=== PATIENT | female | born 1940 | race Caucasian/White ===

== ENCOUNTER 2016-10-04 19:26 | Emergency (ER) | payer OTHER ==
[~2016-10-04 19:26] MED LIST: ALPR-138 PO; ENAL20TA PO; GLUCTAB OR; KLOR8TAB PO; LASI20TA PO; LIDO5DIS35 TD; LORT7.5T3 PO; PRED20 PO; SIMV80TA OR; ZOVI800T13 PO
[2016-10-04 19:30] VITALS: BP 161/72; PULSE 101; RESP 18; TEMP 98; O2SAT 97
== END 2016-10-04 21:57 | disposition left against medical advice (07) ==
LOC: NED 19:26
DX: R18.8 Other ascites (principal)
CPT/HCPCS: 99281

== ENCOUNTER 2017-05-30 19:25 | Inpatient (IN) | payer OTHER, MEDICARE ==
[~2017-05-30] VITALS: Ht 160 cm; Wt 83.6 kg
[2017-05-30 19:33] VITALS: BP 186/84; PULSE 105; RESP 20; TEMP 98.3; O2SAT 96
[2017-05-30 19:50] VITALS: BP 148/73; PULSE 102; RESP 20; O2SAT 97
--- NOTE | 2017-05-30 19:53 | PD ---
HPI Chief Complaint: Complaint Time Seen by Provider: 19:42 Travel History International Travel<30 days: No Contact w/Intl Traveler<30days: No Traveled to known affect area: No History of Present Illness HPI 76-year-old female with history of diabetes, COPD, CKD, hypertension, hyperlipidemia, here for evaluation of decreased urine output for the last 5 days. She states that when she urinates, she is only able to put out a few drops. She denies dysuria. No abdominal pain. She has been having loose bowel movements. No vomiting. No dyspnea. PFSH Past Medical History High Cholesterol: Yes Diabetes: Yes Diminished Hearing: No Hypertension: Yes PNEUMOCCOCAL Vaccine (Year): 2010 ?: Not Past Surgical History Appendectomy: Yes Hysterectomy: Yes Social History Alcohol Use: No Tobacco Use: No Substance Use: No Allergies-Medications (Allergen,Severity, Reaction): Coded Allergies: Sulfa (Sulfonamide Antibiotics) (Verified Allergy, Mild, 05/30/17) Reported Meds & Prescriptions Reported Meds & Active Scripts Active Reported Lantus Inj (Insulin Glargine) 1,000 Unit/10 Ml Vial 75 Units SQ HS Xanax (Alprazolam) 0.25 Mg Tab 0.25 Mg PO Q8H PRN Enalapril (Enalapril Maleate) 20 Mg Tab 20 Mg PO BID Lasix (Furosemide) 20 Mg Tab 20 Mg PO DAILY Lasix (Furosemide) 20 Mg Tab 20 Mg PO DAILY Lipitor (Atorvastatin Calcium) 80 Mg Tab 80 Mg PO HS Review of Systems Except as stated in HPI: all other systems reviewed are Neg Physical Exam Narrative GENERAL: Well-developed, well-nourished, no apparent distress. SKIN: Focused skin assessment warm/dry. HEAD: Atraumatic. Normocephalic. EYES: Pupils equal and round. No scleral icterus. No injection or drainage. ENT: Mucous membranes pink and moist. NECK: Trachea midline. No JVD. CARDIOVASCULAR: Regular rate and rhythm. No murmur appreciated. RESPIRATORY: No accessory muscle use. Mild end expiratory wheezes bilaterally. No rales or rhonchi. Breath sounds equal bilaterally. GASTROINTESTINAL: Abdomen soft, non-tender, nondistended. MUSCULOSKELETAL: No obvious deformities. No clubbing. No cyanosis. Mild bilateral lower extremity edema, left greater than right. NEUROLOGICAL: Awake and alert. No obvious cranial nerve deficits. Motor grossly within normal limits. Normal speech. PSYCHIATRIC: Appropriate mood and affect; insight and judgment normal. Data Data Last Documented VS Vital Signs Date Time Temp Pulse Resp B/P (MAP) Pulse Ox O2 Delivery O2 Flow Rate FiO2 05/30/17 19:50 102 20 148/73 (98) 97 Room Air 05/30/17 19:33 98.3 Orders Orders Complete Blood Count With Diff (05/30/17 19:50) Comprehensive Metabolic Panel (05/30/17 19:50) Prothrombin Time / Inr (Pt) (05/30/17 19:50) Act Partial Throm Time (Ptt) (05/30/17 19:50) Urinalysis - C+S If Indicated (05/30/17 19:50) Iv Access Insert/Monitor (05/30/17 19:50) Ecg Monitoring (05/30/17 19:50) Oximetry (05/30/17 19:50) Sodium Chloride 0.9% Flush (Ns Flush) (05/30/17 20:00) Electrocardiogram (05/30/17 19:50) Chest, Single Ap (05/30/17 ) Sodium Chlor 0.9% 1000 Ml Inj (Ns 1000 M (05/30/17 20:45) Urinary Catheter Insert/Apply (05/30/17 21:05) Sodium Chlor 0.9% 1000 Ml Inj (Ns 1000 M (05/30/17 21:06) Admit Order (Ed Use Only) (05/30/17 21:34) Labs Laboratory Tests Test 05/30/17 20:10 White Blood Count 9.0 TH/MM3 Red Blood Count 4.23 MIL/MM3 Hemoglobin 10.8 GM/DL Hematocrit 34.1 % Mean Corpuscular Volume 80.7 FL Mean Corpuscular Hemoglobin 25.6 PG Mean Corpuscular Hemoglobin Concent 31.7 % Red Cell Distribution Width 17.2 % Platelet Count 225 TH/MM3 Mean Platelet Volume 8.2 FL Neutrophils (%) (Auto) 85.4 % Lymphocytes (%) (Auto) 8.0 % Monocytes (%) (Auto) 5.4 % Eosinophils (%) (Auto) 1.0 % Basophils (%) (Auto) 0.2 % Neutrophils # (Auto) 7.7 TH/MM3 Lymphocytes # (Auto) 0.7 TH/MM3 Monocytes # (Auto) 0.5 TH/MM3 Eosinophils # (Auto) 0.1 TH/MM3 Basophils # (Auto) 0.0 TH/MM3 CBC Comment DIFF FINAL Differential Comment Prothrombin Time 10.0 SEC Prothromb Time International Ratio 0.9 RATIO Activated Partial Thromboplast Time 27.8 SEC Blood Urea Nitrogen 99 MG/DL Creatinine 14.00 MG/DL Random Glucose 122 MG/DL Total Protein 7.4 GM/DL Albumin 3.1 GM/DL Calcium Level 8.3 MG/DL Alkaline Phosphatase 93 U/L Aspartate Amino Transf (AST/SGOT) 18 U/L Alanine Aminotransferase (ALT/SGPT) 37 U/L Total Bilirubin 0.5 MG/DL Sodium Level 135 MEQ/L Potassium Level 4.8 MEQ/L Chloride Level 98 MEQ/L Carbon Dioxide Level 16.5 MEQ/L Anion Gap 21 MEQ/L Estimat Glomerular Filtration Rate 3 ML/MIN [facility] Medical Decision Making Medical Screen Exam Complete: Yes Emergency Medical Condition: Yes Differential Diagnosis Renal failure, UTI, obstructive uropathy, metabolic abnormality/dehydration Narrative Course Bedside transabdominal ultrasound was performed and shows an empty bladder. Initial vital signs show heart rate 105, blood pressure 186/84, pulse ox 96% on room air, oral temp of 98.3F. CBC: WBC 9, hemoglobin 10.8, hematocrit 34.1, platelets 225, neutrophils 85%. BMP is remarkable for BUN 99, creatinine 14, GFR 3, bicarbonate 16.5. Potassium is 4.8. Chest x-ray shows no acute disease. Patient was made aware of all findings. Full he catheter will be placed and the patient will be given a liter of normal saline IV followed by normal saline at 125 cc per hour. She will be admitted for further treatment and evaluation of acute renal failure. Patient reports history of chronic kidney disease, likely secondary to her diabetes and hypertension. She has been having diarrhea for the last week which has likely caused her to become dehydrated leading to her acute renal failure today. There are no indications for emergent dialysis, and the patient is not sure if she would like dialysis anyway. Her abdominal exam shows no tenderness or peritoneal signs. She has a metabolic acidosis which is likely secondary to uremia. Case discussed with hospitalist Dr Teresa who will admit the patient to her service. Procedures Procedure Narrative Bedside transabdominal ultrasound: Using the curvilinear ultrasound probe, a bedside ultrasound was performed and shows an empty bladder. Diagnosis Primary Impression: Acute renal failure Qualified Codes: N17.9 - Acute kidney failure, unspecified Additional Impressions: Metabolic acidosis Uremia Admitting Information Admitting Physician Requests: Admit Dontae Sun MD May 30, 2017 19:53
[2017-05-30] MEDS ORDERED: LIPI80TA PO (19:58)
[2017-05-30] MEDS ORDERED: LANTUS2P SQ (19:58)
[2017-05-30] MEDS ORDERED: ALPR.25 PO (19:58)
[2017-05-30] MEDS ORDERED: ENAL20TA PO (19:58)
[2017-05-30] MEDS ORDERED: FURO1TAB62 PO (19:58)
[2017-05-30] MEDS ORDERED: SODIUM CHLORIDE 0.9% FLUSH 10 ML FLUSH IV FLUSH PRN (20:00)
[2017-05-30 20:19] LABS: AUTOMATED NEUTROPHIL # 7.7 TH/MM3 (1.8-7.7); BASOPHIL % 0.2 % (0.0-2.0); EOSINOPHIL # 0.1 TH/MM3 (0-0.4); HEMATOCRIT 34.1 % (35.0-46.0); HEMO FLAGS DIFF FINAL; LYMPHOCYTE # 0.7 TH/MM3 (1.0-4.8); MEAN CELL VOLUME 80.7 FL (80.0-100.0); MEAN CORPUSCULAR HEMOGLOBIN 25.6 PG (27.0-34.0); MEAN CORPUSCULAR HGB CONC 31.7 % (32.0-36.0); MONO % 5.4 % (0.0-8.0); NEUT % 85.4 % (16.0-70.0); PLATELET COUNT 225 TH/MM3 (150-450); RED BLOOD COUNT 4.23 MIL/MM3 (4.00-5.30); RED CELL DISTRIBUTION WIDTH 17.2 % (11.6-17.2)
[2017-05-30 20:35] LABS: CHLORIDE 98 MEQ/L (98-107); POTASSIUM 4.8 MEQ/L (3.5-5.1); SODIUM (NA) 135 MEQ/L (136-145)
[2017-05-30 20:38] LABS: ANION GAP 21 MEQ/L (5-15); BICARBONATE 16.5 MEQ/L (21.0-32.0)
[2017-05-30 20:39] LABS: BLOOD UREA NITROGEN 99 MG/DL (7-18)
[2017-05-30 20:41] LABS: ALT (GPT) 37 U/L (10-53); AST (GOT) 18 U/L (15-37)
[2017-05-30 20:42] LABS: APTT (PATIENT) 27.8 SEC (24.3-30.1); GLOMERULAR FILTRATION RATE 3 ML/MIN (>89); INTERNATIONAL NORMALIZED RATIO 0.9 RATIO
[2017-05-30 20:43] LABS: TOTAL BILIRUBIN ADULT 0.5 MG/DL (0.2-1.0)
[2017-05-30 20:45] LABS: ALKALINE PHOSPHATASE 93 U/L (45-117)
[2017-05-30] MEDS ORDERED: SODIUM CHLOR 0.9% 1000 ML INJ 1,000 ML IV ONE (20:45)
--- NOTE | 2017-05-30 20:59 | RADRPT ---
EXAM DATE/TIME: 05/30/2017 20:12 [facility] COMPARISON: No previous studies available for comparison. INDICATIONS : Short of breath. No urine output for 5 days. MEDICAL HISTORY : Hypertension. Chronic obstructive pulmonary disease. Hypercholesterolemia. Diabetes. SURGICAL HISTORY : Appendectomy. Hysterectomy. ENCOUNTER: Initial ACUITY: 4 - 6 days PAIN SCORE: 0/10 LOCATION: Bilateral chest FINDINGS: The lungs are clear without infiltrate, nodule, or mass. There is no appreciable pleural effusion fo r technique. Heart and mediastinum are unremarkable. CONCLUSION: No acute cardiopulmonary disease. Alex Rogers MD on May 30, 2017 at 20:58 Board Certified Radiologist. This report was verified electronically.
[2017-05-30] MEDS ORDERED: SODIUM CHLOR 0.9% 1000 ML INJ 1,000 ML IV SCH (21:06)
[2017-05-30] MEDS ORDERED: DEXTROSE 50% IN WATER 50 ML VIAL(D50) IV PUSH PRN (21:45)
[2017-05-30] MEDS ORDERED: NALOXONE HCL 0.4 MG/ML AMP IV PUSH PRN (21:45)
[2017-05-30] MEDS ORDERED: GLUCAGON 1 MG/ML VIAL OTHER PRN (21:45)
[2017-05-30 22:02] LABS: BLOOD, URINE SMALL (NEG); GLUCOSE,URINE NEG (NEG); KETONE, URINE NEG (NEG); NITRITE,URINE NEG (NEG); PH, URINE 5.5 (5.0-8.5)
[2017-05-30 22:15] VITALS: BP 151/68; PULSE 95; RESP 20; O2SAT 96
--- NOTE | 2017-05-30 22:20 | EKG ---
Date Performed: 05/30/2017 Time Performed: 20:23:33 PTAGE: 76 years EKG: Sinus rhythm MARKED LEFT AXIS DEVIATION LOW QRS VOLTAGE IN PRECORDIAL LEADS INCOMPLETE RIGHT BUNDLE BRANCH BLOCK ANTEROSEPTAL MYOCARDIAL INFARCTION ABNORMAL ECG NO PREVIOUS TRACING DOCTOR: Martha Fu Interpretating Date/Time 05/30/2017 22:18:33
[2017-05-30 22:26] LABS: METHOD OF COLLECTION CATH; URINE COLOR YELLOW (YELLW/STRAW)
[2017-05-30 22:27] LABS: RBC, URINE 0-3 /hpf (0-3); SQUAMOUS EPITHELIAL CELL URINE 0-5 /hpf (0-5)
[2017-05-30 22:28] LABS: HYALINE CAST, URINE 0-2 /lpf (RARE)
[2017-05-30 22:29] LABS: COMMENT (UR) CATH-CULT NOT IND; CULTURE IF INDICATED CATH CULTURE NOT IND
[2017-05-30 23:55] VITALS: BP 165/68
[2017-05-31] VITALS (9 sets, daily range): BP systolic 137–153; BP diastolic 63–87; PULSE 93–101; RESP 20–25; TEMP 96–97.4; O2SAT 93–97
[2017-05-31] MEDS: RESP: ALBUTEROL 2.5 MG/IPRATROPIUM 0.5 MG NEB (SCH) NEB ×4 (04:24→20:39)
[2017-05-31 06:36] LABS: AUTOMATED NEUTROPHIL # 7.5 TH/MM3 (1.8-7.7); BASOPHIL % 0.3 % (0.0-2.0); EOSINOPHIL # 0.1 TH/MM3 (0-0.4); EOSINOPHIL % 1.2 % (0.0-4.0); HEMATOCRIT 29.3 % (35.0-46.0); HEMO FLAGS DIFF FINAL; LYMPHOCYTE # 1.3 TH/MM3 (1.0-4.8); MEAN CELL VOLUME 79.7 FL (80.0-100.0); MEAN CORPUSCULAR HEMOGLOBIN 25.1 PG (27.0-34.0); MEAN CORPUSCULAR HGB CONC 31.4 % (32.0-36.0); MONO % 6.8 % (0.0-8.0); NEUT % 77.7 % (16.0-70.0); PLATELET COUNT 203 TH/MM3 (150-450); RED BLOOD COUNT 3.68 MIL/MM3 (4.00-5.30); RED CELL DISTRIBUTION WIDTH 17.2 % (11.6-17.2); WHITE BLOOD COUNT 9.5 TH/MM3 (4.0-11.0)
[2017-05-31 06:49] LABS: POTASSIUM 4.9 MEQ/L (3.5-5.1)
[2017-05-31 07:13] LABS: BICARBONATE 14.2 MEQ/L (21.0-32.0)
[2017-05-31] MEDS: INSULIN ASPART SUPPLEMENTAL SCALE SQ SCH ×4 (08:00→20:50)
[2017-05-31] MEDS: SODIUM CHLORIDE 0.9% FLUSH 10 ML FLUSH IV FLUSH SCH ×2 (09:00→20:23)
--- NOTE | 2017-05-31 09:29 | RADRPT ---
EXAM DATE/TIME: 05/31/2017 08:54 [facility] COMPARISON: No previous studies available for comparison. EXTERNAL COMPARISON : [facility], US ABDOMEN, COMPLETE October 24, 2016. [facility], US BILATERAL RENAL & BLADDER September 21, 2016. INDICATIONS : Acute renal failure. MEDICAL HISTORY : Chronic obstructive pulmonary disease. Hypercholesterolemia. Hypertension. Stage IV kidney disease. F atty liver. Diabetes. SURGICAL HISTORY : Cholecystectomy. Hysterectomy. Appendectomy. Right knee replacement. Bilateral rotator cuff repair. ENCOUNTER: Initial ACUITY: 1 day PAIN SCORE: 0/10 LOCATION: Bilateral flank MEASUREMENTS: RIGHT KIDNEY: 9.8 x 5.5 x 5.1 cm LEFT KIDNEY: 7.3 x 4.1 x 3.6 cm FINDINGS: RIGHT KIDNEY: Renal cortex is normal in thickness and echotexture. No hydronephrosis, stone, or mass. LEFT KIDNEY: The kidney is small in size and there is loss of delineation of the echotexture between the renal sin us and parenchyma. No evidence of hydronephrosis. No cystic or solid lesions seen. BLADDER: Cancino catheter in a decompressed bladder. CONCLUSION: 1. Abnormal appearance to the left kidney with diminutive size and poor delineation of the parenchyma l architecture. 2. No gross abnormality seen in the right kidney. Aramis Scott MD on May 31, 2017 at 9:24 Board Certified Radiologist. This report was verified electronically.
--- NOTE | 2017-05-31 09:44 | RADRPT ---
EXAM DATE/TIME: 05/31/2017 09:20 [facility] COMPARISON: CHEST SINGLE AP, May 30, 2017, 20:12. INDICATIONS : Short of breath. MEDICAL HISTORY : Chronic obstructive pulmonary disease. Hypercholesterolemia. Hypertension. Stage IV kidney disease. F atty liver. Diabetes. SURGICAL HISTORY : Umbilical hernia repair. Cholecystectomy. Hysterectomy. Appendectomy. Right knee replacement.Bilate ral rotator cuff repair. ENCOUNTER: Initial ACUITY: 2 days PAIN SCORE: 0/10 LOCATION: chest FINDINGS: A single view of the chest demonstrates the lungs to be symmetrically aerated without evidence of mas s, infiltrate or effusion. The cardiomediastinal contours are unremarkable. Osseous structures are intact. CONCLUSION: No infiltrate seen. Aramis Scott MD on May 31, 2017 at 9:42 Board Certified Radiologist. This report was verified electronically.
[2017-05-31] MEDS ORDERED: SODIUM CHLOR 0.9% 1000 ML INJ 1,000 ML IV SCH (10:15)
[2017-05-31] MEDS ORDERED: methylPREDNISolone SOD SUCC 125 MG/2 ML VIAL IV PUSH ONE (10:15)
[2017-05-31] MEDS ORDERED: FUROSEMIDE 40 MG/4 ML VIAL IV PUSH ONE (10:15)
--- NOTE | 2017-05-31 13:04 | HHI.HP ---
[facility] Service [facility] Primary Care Physician Camron Figueroa MD Admission Diagnosis acute renal failure, metabolic acidosis, uremia Diagnoses: (1) Acute renal failure Diagnosis: Principal (2) Metabolic acidosis Diagnosis: Principal (3) Oliguria Diagnosis: Principal (4) Diarrhea Diagnosis: Principal Chief Complaint: Told to come to the hospital by Dr. Figueroa's office Travel History International Travel<30 Days: No Contact w/Intl Traveler <30 Da: No Traveled to Known Affected Are: No History of Present Illness Written by Chris Waite, acting as scribe for Dr. Pemberton on 05/31/17 at 12:49. Pt is a suboptimal historian - has difficulty remembering her presenting story. 76-year-old female with known history of hypertension, hyperlipidemia , diabetes, chronic obstructive pulmonary disease, records indicate stage IV kidney disease who presented to hospital at the request of her primary medical doctor. There was some mild difficulty with trying to obtain information from the patient. She appears to be very forgetful. However she states that around a week ago she started having GI symptoms to include nausea, vomiting, diarrhea. Is indicated that she has been having decreased amount of urine output. She had called her regular medical doctor 2 days ago and discussed her symptoms with them and she was given recommendations at that time. However her symptoms did not improve, she still experiencing diarrhea, nausea, dry heaves. She contacted her primary medical doctor's office again yesterday and she was told to go to the ER for evaluation. Patient had a girlfriend high lift driver to the hospital for evaluation. Patient indicates that she has had diarrhea illness with watery stool. Denies any hematochezia, melena. It has nausea with dry heaves. Denies any hematemesis. She has been only able tolerate small amounts of liquids. She has had decreased urinary output with only getting a few drops out at a time. She came to emergency department for evaluation and was found to have acute renal failure. Records indicate significant oliguria with only 150 cc of urinary output since being at the hospital. Patient states that she is monitored by a stave cutting supervisor whose first name is Leticia. Patient was given 1100 cc of IV fluid without any significant urinary output. Patient was admitted for further management. She also reports having some SOB that started shortly after arriving to the emergency room. Review of Systems Except as stated in HPI: all other systems reviewed are Neg Past Family Social History Past Medical History Hypertension Hyperlipidemia Diabetes Chronic Kidney disease stage IV per records Chronic obstructive pulmonary disease Past Surgical History Cholecystectomy Hysterectomy Reported Medications Reported Meds & Active Scripts Active Reported Lantus Inj (Insulin Glargine) 1,000 Unit/10 Ml Vial 75 Units SQ HS Xanax (Alprazolam) 0.25 Mg Tab 0.25 Mg PO Q8H PRN Enalapril (Enalapril Maleate) 20 Mg Tab 20 Mg PO BID Lasix (Furosemide) 20 Mg Tab 20 Mg PO DAILY Lasix (Furosemide) 20 Mg Tab 20 Mg PO DAILY Lipitor (Atorvastatin Calcium) 80 Mg Tab 80 Mg PO HS Allergies: Coded Allergies: Sulfa (Sulfonamide Antibiotics) (Verified Allergy, Mild, 05/30/17) Family History Reviewed is significant for father from kidney disease Social History Patient continues smoke a half pack a cigarettes a day since she was teenager. Denies any alcohol or illicit drugs Physical Exam Vital Signs Vital Signs Date Time Temp Pulse Resp B/P (MAP) Pulse Ox O2 Delivery O2 Flow Rate FiO2 05/31/17 11:30 96.3 94 20 144/72 (96) 96 05/31/17 10:18 96 Nasal Cannula 2.00 05/31/17 07:50 96.5 97 20 153/63 (93) 97 05/31/17 04:24 94 21 05/31/17 04:00 97.0 93 20 139/70 (93) 95 05/31/17 00:30 97.4 101 20 149/73 (98) 95 05/30/17 23:55 103 20 165/68 (100) 98 05/30/17 22:15 95 20 151/68 (95) 96 Room Air 05/30/17 19:50 105 20 05/30/17 19:50 102 20 148/73 (98) 97 Room Air 05/30/17 19:50 103 20 96 Room Air 05/30/17 19:50 102 20 148/73 (98) 97 Room Air 05/30/17 19:33 98.3 105 20 186/84 (118) 96 Physical Exam GENERAL: Well-developed, well-nourished, in no acute distress. alert and orientated HEENT: Head is normocephalic without any lesions or masses noted. Facial features are symmetric. Eyes: Extraocular muscles are intact. Conjunctivae were clear. Oropharyngeal: Pharynx without any erythema edema. Tongue is midline without deviation. Buccal mucosa is moist without any masses or lesions NECK: Supple without any masses. Trachea midline no deviation. No JVD CARDIAC: Regular rhythm, regular rate. S1/S2 are heard. No murmurs gallops or rubs. LUNGS: Diminished breath sounds noted in the bases, patient with profound expiratory wheeze. No Rhonchi or rales. No use of accessory muscles on inspiration or expiration. Patient unable to complete full sentences ABDOMEN: Soft, nontender. distended. Bowel sounds heard in all 4 quadrants. No organomegaly or masses. Negative rebound, negative guarding EXTREMITIES: No edema, pulses are equal bilaterally. No cyanosis or clubbing NEUROLOGY: No facial droop, no slurred speech, no tremors Psychiatry: Mood and affect appropriate Laboratory Laboratory Tests Test 05/30/17 20:10 05/30/17 21:49 05/31/17 06:00 White Blood Count 9.0 9.5 Red Blood Count 4.23 3.68 Hemoglobin 10.8 9.2 Hematocrit 34.1 29.3 Mean Corpuscular Volume 80.7 79.7 Mean Corpuscular Hemoglobin 25.6 25.1 Mean Corpuscular Hemoglobin Concent 31.7 31.4 Red Cell Distribution Width 17.2 17.2 Platelet Count 225 203 Mean Platelet Volume 8.2 8.6 Neutrophils (%) (Auto) 85.4 77.7 Lymphocytes (%) (Auto) 8.0 14.0 Monocytes (%) (Auto) 5.4 6.8 Eosinophils (%) (Auto) 1.0 1.2 Basophils (%) (Auto) 0.2 0.3 Neutrophils # (Auto) 7.7 7.5 Lymphocytes # (Auto) 0.7 1.3 Monocytes # (Auto) 0.5 0.6 Eosinophils # (Auto) 0.1 0.1 Basophils # (Auto) 0.0 0.0 CBC Comment DIFF FINAL DIFF FINAL Differential Comment Prothrombin Time 10.0 Prothromb Time International Ratio 0.9 Activated Partial Thromboplast Time 27.8 Blood Urea Nitrogen 99 101 Creatinine 14.00 13.00 Random Glucose 122 75 Total Protein 7.4 Albumin 3.1 Calcium Level 8.3 7.8 Alkaline Phosphatase 93 Aspartate Amino Transf (AST/SGOT) 18 Alanine Aminotransferase (ALT/SGPT) 37 Total Bilirubin 0.5 Sodium Level 135 138 Potassium Level 4.8 4.9 Chloride Level 98 105 Carbon Dioxide Level 16.5 14.2 Anion Gap 21 19 Estimat Glomerular Filtration Rate 3 3 Urine Collection Type CATH Urine Color YELLOW Urine Turbidity CLEAR Urine pH 5.5 Urine Specific [place] 1.010 Urine Protein 30 Urine Glucose (UA) NEG Urine Ketones NEG Urine Occult Blood SMALL Urine Nitrite NEG Urine Bilirubin NEG Urine Leukocyte Esterase NEG Urine RBC 0-3 Urine Squamous Epithelial Cells 0-5 Urine Amorphous Sediment FEW Urine Hyaline Casts 0-2 Urine Fine Granular Casts 0-2 Microscopic Urinalysis Comment CATH-CULT NOT IND Result Diagram: 05/31/17 0600 05/31/17 0600 Imaging Last Impressions Renal Ultrasound 05/31/17 0000 Signed Impressions: Service Date/Time: Wednesday, May 31, 2017 08:54 - CONCLUSION: 1. Abnormal appearance to the left kidney with diminutive size and poor delineation of the parenchymal architecture. 2. No gross abnormality seen in the right kidney. Aramis Scott MD Chest X-Ray 05/31/17 0000 Signed Impressions: Service Date/Time: Wednesday, May 31, 2017 09:20 - CONCLUSION: No infiltrate seen. Aramis Scott MD Capbriani VTE Risk Assessment Caprini VTE Risk Assessment: Mod/High Risk (score >= 2) Caprini Risk Assessment Model Point Value = 1 Point Value = 2 Point Value = 3 Point Value = 5 Age 41-60 Minor surgery BMI > 25 kg/m2 Swollen legs Varicose veins or History of unexplained or recurrent spontaneous Oral contraceptives or hormone replacement Sepsis (< 1 month) Serious lung disease, including pneumonia (< 1 month) Abnormal pulmonary function Acute myocardial infarction Congestive heart failure (< 1 month) History of inflammatory bowel disease Medical patient at bed rest Age 61-74 Arthroscopic surgery Major open surgery (> 45 min) Laparoscopic surgery (> 45 min) Malignancy Confined to bed (> 72 hours) Immobilizing plaster cast Central venous access Age >= 75 History of VTE Family history of VTE Factor V Leiden Prothrombin [id number] Lupus anticoagulant Anticardiolipin antibodies Elevated serum homocysteine Heparin-induced thrombocytopenia Other congenital or acquired thrombophilia Stroke (< 1 month) Elective arthroplasty Hip, pelvis, or leg fracture Acute spinal cord injury (< 1 month) Prophylaxis Regimen Total Risk Factor Score Risk Level Prophylaxis Regimen 0-1 Low Early ambulation 2 Moderate Order ONE of the following: *Sequential Compression Device (SCD) *Heparin 5000 units SQ BID 3-4 Higher Order ONE of the following medications: *Heparin 5000 units SQ TID *Enoxaparin/Lovenox 40 mg SQ daily (WT < 150 kg, CrCl > 30 mL/min) *Enoxaparin/Lovenox 30 mg SQ daily (WT < 150 kg, CrCl > 10-29 mL/min) *Enoxaparin/Lovenox 30 mg SQ BID (WT < 150 kg, CrCl > 30 mL/min) AND/OR *Sequential Compression Device (SCD) 5 or more Highest Order ONE of the following medications: *Heparin 5000 units SQ TID (Preferred with Epidurals) *Enoxaparin/Lovenox 40 mg SQ daily (WT < 150 kg, CrCl > 30 mL/min) *Enoxaparin/Lovenox 30 mg SQ daily (WT < 150 kg, CrCl > 10-29 mL/min) *Enoxaparin/Lovenox 30 mg SQ BID (WT < 150 kg, CrCl > 30 mL/min) AND *Sequential Compression Device (SCD) Assessment and Plan Assessment and Plan Acute renal failure with partial oliguria, anion gap metabolic acidosis, with records indicating stage IV kidney disease Precipitated by nausea, vomiting, diarrhea. Etiology could include dehydration , acute tubular necrosis, Renal ultrasound does not indicate any acute abnormality but rather chronic atrophy of left kidney Discussion with Dr. Leticia Lee recommended cautious IV hydration, administration of Lasix x 1 until seen by them. Ordering add on renal function panel for now from a.m. specimen earlier today, repeating renal function panel for tomorrow morning Nausea, vomiting, diarrhea N/V possibly 2/2 uremia vs viral gastroenteritis Cautious hydration Zofran as needed Diarrhea - r/o C. difficile w/ PCR Chronic obstructive pulmonary disease Profound wheezing, shortness of breath, dyspnea Chest x-ray independently reviewed by Dr. Pemberton does not indicate any acute abnormality Start Solu-Medrol 60 mg every 6 hours Continue duo nebs Hypertension, hyperlipidemia Resume statin Hold NINI inhibitor secondary to acute renal failure Diabetes Accu-Cheks with low sliding scale insulin DVT prevention Sequential compression devices, will order short acting heparin in case Vas- cath placement is needed. This note was transcribed by vandana Waite. IDerek, personally performed the history, physical exam, and medical decision making; and confirmed the accuracy of information in the transcribed note. Authenticated by Derek Pemberton on 1310. All orders entered by Robbie Waite were at my discretion. Physician Certification 2 Midnight Certification Type: Admission for Inpatient Services Order for Inpatient Services The services are ordered in accordance with Medicare regulations or non- Medicare payer requirements, as applicable. In the case of services not specified as inpatient-only, they are appropriately provided as inpatient services in accordance with the 2-midnight benchmark. Estimated LOS (days): 4 days is the estimated time the patient will need to remain in the hospital, assuming treatment plan goals are met and no additional complications. Post-Hospital Plan: Not yet determined Problem Qualifiers (1) Acute renal failure: Qualified Codes: N17.9 - Acute kidney failure, unspecified Chris Waite May 31, 2017 13:04 Derek Pemberton MD May 31, 2017 14:38
[2017-05-31] MEDS: HEPARIN SODIUM - SQ 10,000 UNITS/ML VIAL SQ SCH ×2 (16:00→20:54)
[2017-05-31 16:58] LABS: POTASSIUM 5.3 MEQ/L (3.5-5.1)
[2017-05-31 17:25] LABS: BICARBONATE 15.2 MEQ/L (21.0-32.0)
[2017-05-31 18:40] LABS: CALCIUM-PROTEIN CORRECTED 7.3 MG/DL (8.5-10.1)
[2017-05-31] MEDS: SODIUM BICARBONATE 8.4% INJ 75 MEQ in SODIUM CHLOR 0.45% 1000 ML INJ 1,000 ML IV SCH (18:48)
--- NOTE | 2017-05-31 19:52 | MB ---
cc: ANTOINE TRINH MD DATE OF CONSULTATION 05/31/2017 REASON FOR CONSULTATION Chronic kidney disease with elevated BUN and creatinine. HISTORY OF PRESENT ILLNESS This is a 76-year-old female with past medical history of hypertension, diabetes mellitus, hyperlipidemia, ischemic heart disease, chronic kidney disease, chronic obstructive pulmonary disease was admitted because of generalized weakness, decreased urine output. I he was called to see the patient for elevated BUN and creatinine. The patient is known to me from before. She has been following with me in the office and last time I saw her was on May 04 and at that time her creatinine was 2.2 with given the GFR of 19-20 she had advanced stage IV chronic kidney disease most likely because of diabetic nephropathy. She had a workup done which shows the SOMMER was negative. She has mild proteinuria. The patient was quite stable for the last few months that I am seeing her and since last week she started having this nausea with dry heaves, occasional vomiting and loose bowel motion. And since last 2 days she stopped passing any urine. She called Dr. Figueroa's office on Monday and she was told to drink more fluid. She did that and she did also drink some more Gatorade but she did not notice an increase in the urine output, in fact she was not able to pass any urine for the last 2 days so she decided to come to the hospital. Here she got a Cancino catheter and she has been passing very small amount of urine and she was given one dose of Lasix and she is getting IV fluid and she started passing some but not much of the urine. Her creatinine was 14 on admission and is now 13. She also has metabolic acidosis. The patient has improvement in her nausea and there is no vomiting now. She still has loose bowel motion but it is improving. There is no abdominal pain. There is no history of fever. She denies taking any nonsteroidal anti-inflammatory drugs. PAST MEDICAL HISTORY 1. Hypertension. 2. Diabetes mellitus. 3. Hyperlipidemia. 4. Chronic kidney disease. 5. Chronic obstructive pulmonary disease. PAST SURGICAL HISTORY 1. Cholecystectomy. 2. Hysterectomy. REVIEW OF SYSTEMS The patient has generalized weakness, feeling tired. Has no history of fever. No headache, dizziness or blurring of vision. Denies any shortness of breath at rest but she has some mild shortness of breath on exertion. She had dry heaves and nausea with occasional vomiting but it is better now. She started eating better. She has diarrhea with stool incontinence on coughing which has been going on for the last five to six days and now it is slightly better. SOCIAL HISTORY The patient is single. She smokes about half-pack per day. There is no history of heavy alcoholism. FAMILY HISTORY Her niece is on dialysis and has kidney disease. ALLERGIES SHE IS ALLERGIC TO SULFA. MEDICATIONS Currently she is on the following medications: 1. IV fluids normal saline at 70 an hour. 2. Lipitor 80 milligrams q.h.s. 3. Methyl prednisolone 60 mg q. 12-hour. 4. DuoNeb nebulizer. 5. Narcan as needed. 6. Zofran as needed PHYSICAL EXAMINATION GENERAL: The patient is awake, alert. She is not in acute distress. VITAL SIGNS: Her last blood pressure 144/72, temperature 96.3, oxygen saturation 96%. She has not had any hypotensive episode during this admission. HEENT: Pupils are mid constricted. Nonicteric sclera, conjunctiva pale. NECK: Supple. JVD is not elevated. LUNGS: The patient has bilateral decreased air entry with basilar rales and scattered wheezing. HEART: S1-S2, regular rhythm. ABDOMEN: Distended, soft, lax. There is no tenderness. Bowel sounds positive. EXTREMITIES: She has 1+ leg edema. LABORATORY DATA Investigations, WBC count 9.5, hemoglobin 9.2, platelet count of 203, neutrophils 77.7%. Sodium 138, potassium 4.9, chloride 105, bicarb 14.2, BUN 101, creatinine 13, calcium is 7.8. AST and ALT normal. Total protein 7.4, albumin 3.1. INR is 0.9. Urinalysis showing protein of 30. IMAGING STUDIES The patient has chest x-ray done which shows lung shaffer clear, no infiltrates. Ultrasound of the kidneys done which showed both kidneys are small in size especially the left kidney is only 7.3 cm and abnormal appearance of the left kidney. No gross abnormality in the right kidney which is 9.8 cm. ASSESSMENT/PLAN 1. Chronic kidney disease with some acute worsening. 2. Metabolic acidosis. 3. Dehydration. 4. Anemia. 5. Hypertension. 6. Diabetes mellitus. 7. Nausea, vomiting and diarrhea. The patient has chronic kidney disease stage IV from before and now it seems like there is some acute element possibly related to dehydration but her GFR was 19-20 from before, so this could be just her progression of disease also. She was started on IV fluid. I will give her some bicarb. Given the size of her kidneys if there is no improvement she possibly will need to start on dialysis. I did discuss this with the patient and explained to her the process of dialysis. She seems to be willing to go for it if needed. We will try the IV fluid and she was given one dose of diuretics, we will see how the urine output and the BUN and creatinine by tomorrow and if there is no improvements will possibly need to start her on dialysis. Thank you for the consultation. I will follow the patient while she is in the hospital. MD KYAW Charles/KK /4:39 PM /7:20 PM
[2017-05-31] MEDS: ATORVASTATIN 40 MG TAB PO SCH (20:24)
[2017-05-31] MEDS ORDERED: methylPREDNISolone SOD SUCC 125 MG/2 ML VIAL IV PUSH SCH (21:00)
[2017-06-01] VITALS (109 sets, daily range): BP systolic 70–187; BP diastolic 46–95; PULSE 68–119; RESP 0–37; TEMP 93.9–99.1; O2SAT 89–100
[2017-06-01] MEDS: RESP: ALBUTEROL 2.5 MG/IPRATROPIUM 0.5 MG NEB (PRN) NEB ×2 (02:56→05:28)
[2017-06-01] MEDS: HEPARIN SODIUM - SQ 10,000 UNITS/ML VIAL SQ SCH ×3 (05:17→23:01)
[2017-06-01] MEDS ORDERED: ROCURONIUM INJ 50 MG/5 ML VIAL IV ONE (06:15)
[2017-06-01] MEDS ORDERED: RESP: ALBUTEROL 2.5 MG/IPRATROPIUM 0.5 MG NEB (SCH) INH (06:15)
[2017-06-01] MEDS ORDERED: SODIUM CHLORIDE 0.9% FLUSH 10 ML FLUSH IVF PRN (06:15)
[2017-06-01] MEDS ORDERED: ETOMIDATE 20 MG/10 ML VIAL IVP ONE (06:15)
[2017-06-01 06:20] LABS: POTASSIUM 6.1 MEQ/L (3.5-5.1)
[2017-06-01 06:26] LABS: BICARBONATE 14.4 MEQ/L (21.0-32.0)
--- NOTE | 2017-06-01 06:48 | RADRPT ---
EXAM DATE/TIME: 06/01/2017 06:21 [facility] COMPARISON: CHEST SINGLE AP, May 31, 2017, 9:20. INDICATIONS : Post intubation. MEDICAL HISTORY : Chronic obstructive pulmonary disease. Hypercholesterolemia. Hypertension. Stage IV kidney disease. F atty liver. Diabetes. SURGICAL HISTORY : Umbilical hernia repair. Cholecystectomy. Hysterectomy. Appendectomy. ENCOUNTER: Subsequent ACUITY: 3 days PAIN SCORE: Non-responsive. LOCATION: Bilateral chest FINDINGS: A single view of the chest demonstrates endotracheal tube placement with tip 3.5 cm above the brayan. Nasogastric tube with tip in stomach. Interstitial densities. Heart normal in size. The cardiomedias tinal contours are unremarkable. Osseous structures are intact. CONCLUSION: 1. Adequate placement of endotracheal tube. Jamie Arellano MD on June 01, 2017 at 6:46 Board Certified Radiologist. This report was verified electronically.
[2017-06-01 06:50] LABS: BLOOD GAS CARBOXYHEMOGLOBIN 0.5 % (0-4); BLOOD GAS HCO3 12 mmol/L (22-26); BLOOD GAS METHEMOGLOBIN 1.6 % (0-2); BLOOD GAS O2 HGB SATURATION 96 % (90-100); BLOOD GAS OXYGEN CONTENT 15.1 Vol % (12.0-20.0); BLOOD GAS PCO2 63 mmHg (38-42); BLOOD GAS PO2 211 mmHg (61-120); BLOOD GAS TOTAL HGB 10.8 G/DL (12.0-16.0)
[2017-06-01 06:51] LABS: CRITICAL VALUE YES; FIO2 60 %; OXYGEN DEVICE VENTILATOR; VENT SETTINGS PRVC
[2017-06-01 06:52] LABS: DRAW SITE RT BRACHIAL; NUMBER OF ARTERIAL PUNCTURES 1; STAT NO; ULNAR PULSE Y
--- NOTE | 2017-06-01 06:55 | PD ---
Data Data Last Documented VS Vital Signs Date Time Temp Pulse Resp B/P (MAP) Pulse Ox O2 Delivery O2 Flow Rate FiO2 05/30/17 19:50 105 20 05/30/17 19:50 148/73 (98) 97 Room Air 05/30/17 19:33 98.3 Orders Orders Complete Blood Count With Diff (05/30/17 19:50) Comprehensive Metabolic Panel (05/30/17 19:50) Prothrombin Time / Inr (Pt) (05/30/17 19:50) Act Partial Throm Time (Ptt) (05/30/17 19:50) Urinalysis - C+S If Indicated (05/30/17 19:50) Iv Access Insert/Monitor (05/30/17 19:50) Ecg Monitoring (05/30/17 19:50) Oximetry (05/30/17 19:50) Sodium Chloride 0.9% Flush (Ns Flush) (05/30/17 20:00) Electrocardiogram (05/30/17 19:50) Chest, Single Ap (05/30/17 ) Sodium Chlor 0.9% 1000 Ml Inj (Ns 1000 M (05/30/17 20:45) Urinary Catheter Insert/Apply (05/30/17 21:05) Sodium Chlor 0.9% 1000 Ml Inj (Ns 1000 M (05/30/17 21:06) Admit Order (Ed Use Only) (05/30/17 21:34) Labs Laboratory Tests Test 05/30/17 20:10 White Blood Count 9.0 TH/MM3 Red Blood Count 4.23 MIL/MM3 Hemoglobin 10.8 GM/DL Hematocrit 34.1 % Mean Corpuscular Volume 80.7 FL Mean Corpuscular Hemoglobin 25.6 PG Mean Corpuscular Hemoglobin Concent 31.7 % Red Cell Distribution Width 17.2 % Platelet Count 225 TH/MM3 Mean Platelet Volume 8.2 FL Neutrophils (%) (Auto) 85.4 % Lymphocytes (%) (Auto) 8.0 % Monocytes (%) (Auto) 5.4 % Eosinophils (%) (Auto) 1.0 % Basophils (%) (Auto) 0.2 % Neutrophils # (Auto) 7.7 TH/MM3 Lymphocytes # (Auto) 0.7 TH/MM3 Monocytes # (Auto) 0.5 TH/MM3 Eosinophils # (Auto) 0.1 TH/MM3 Basophils # (Auto) 0.0 TH/MM3 CBC Comment DIFF FINAL Differential Comment Prothrombin Time 10.0 SEC Prothromb Time International Ratio 0.9 RATIO Activated Partial Thromboplast Time 27.8 SEC Blood Urea Nitrogen 99 MG/DL Creatinine 14.00 MG/DL Random Glucose 122 MG/DL Total Protein 7.4 GM/DL Albumin 3.1 GM/DL Calcium Level 8.3 MG/DL Alkaline Phosphatase 93 U/L Aspartate Amino Transf (AST/SGOT) 18 U/L Alanine Aminotransferase (ALT/SGPT) 37 U/L Total Bilirubin 0.5 MG/DL Sodium Level 135 MEQ/L Potassium Level 4.8 MEQ/L Chloride Level 98 MEQ/L Carbon Dioxide Level 16.5 MEQ/L Anion Gap 21 MEQ/L Estimat Glomerular Filtration Rate 3 ML/MIN [facility] Supervised Visit with COLLEEN: No Narrative Course I was called to this patient's bed during a halicat. The patient was unresponsive. Per nursing staff the patient had been reporting increasing dyspnea and shortness of breath. She been asking for her Xanax. They were administering nebulizers and were trying to administer steroids. Patient became more poorly responsive and seemed to be in more respiratory distress. On my arrival she had labored expirations with a prolonged expiratory phase and diffuse wheezing. She was not protecting her airway. On a nonrebreather she was 88%. With bag mask ventilation she came up to 100%. I decided to intubate the patient. Intubation went without difficulty. Patient did have some pooling secretions in the posterior pharynx. Following intubation she was started on propofol and transferred to the intensive care unit. I spoke to Dr. Schultz and to Sivan Davenport the [facility] cement mason apprentice regarding the patient. Dr. Schultz agreed to come see the patient this morning. Critical Care Narrative Aggregate critical care time was 40 minutes. Time to perform other separately billable procedures was not included in the critical care time. My time did not include minutes spent treating any other patients simultaneously or on activities that did not directly contribute to the patient's treatment. The services I provided to this patient were to treat and/or prevent clinically significant deterioration that could result in: Disability, I provided critical care services requiring my management, as noted below: Chart data review, documentation time, medication orders and management, vital sign assessments/reviewing monitor data, ordering and reviewing lab tests, ordering and interpreting/reviewing x-rays and diagnostic studies, care of the patient and discussion of the patient with the admitting physicians. Procedures Procedure Narrative After the risks and benefits were discussed the following procedure was performed: INTUBATION: The patient was put in optimal position for the procedure. Rapid sequence intubation was initiated by me using 20 milligrams of etomidate IV and 50 milligrams of rocuronium IV. The patient was intubated with a 7.5 cuffed endotracheal tube. Tube placement was confirmed by visualization of the tube and balloon passing through the cords, capnometry and subsequent chest x-ray. Breath sounds were equal and well aerated bilaterally postintubation. No breath sounds over stomach. Patient tolerated procedure well. Diagnosis Primary Impression: Acute renal failure Qualified Codes: N17.9 - Acute kidney failure, unspecified Additional Impressions: Metabolic acidosis Uremia Maritza Rodriguez MD Jun 01, 2017 06:55
[2017-06-01] MEDS ORDERED: CALCIUM GLUCONATE INJ 1 GM in SODIUM CHLORIDE 0.9% INJ 100 ML IV ONE (07:00)
[2017-06-01] MEDS ORDERED: SODIUM BICARBONATE 8.4% INJ 50 MEQ/50 ML SYR IV PUSH ONE (07:00)
[2017-06-01] MEDS: PROPOFOL 1000 MG/100 ML INJ 100 ML IV PRN ×2 (07:00→20:01)
[2017-06-01] MEDS ORDERED: INSULIN HUMAN REGULAR 1,000 UNITS/10 ML VIAL IV PUSH ONE (07:00)
[2017-06-01] MEDS ORDERED: DEXTROSE 50% IN WATER 50 ML VIAL(D50) IV PUSH ONE (07:00)
[2017-06-01] MEDS ORDERED: SODIUM POLYSTYRENE SULFONATE SUSP 15 GM/60 ML CUP PO ONE (07:00)
[2017-06-01] MEDS ORDERED: PIPERACIL-TAZO 4.5 GM PREMIX 100 ML IV SCH (07:15)
[2017-06-01] MEDS ORDERED: DEXTROSE 50% IN WATER 50 ML VIAL(D50) IV PUSH PRN (07:15)
[2017-06-01] MEDS ORDERED: GLUCAGON 1 MG/ML VIAL OTHER PRN (07:15)
[2017-06-01] MEDS ORDERED: methylPREDNISolone SOD SUCC 125 MG/2 ML VIAL IV PUSH SCH (07:15)
[2017-06-01 07:26] LABS: CKMB 11.3 NG/ML (0.5-3.6)
[2017-06-01 08:11] LABS: BLOOD GAS BASE EXCESS -15.8 mmol/L (-2-2); BLOOD GAS CARBOXYHEMOGLOBIN 0.9 % (0-4); BLOOD GAS HCO3 13 mmol/L (22-26); BLOOD GAS METHEMOGLOBIN 1.2 % (0-2); BLOOD GAS O2 HGB SATURATION 93 % (90-100); BLOOD GAS OXYGEN CONTENT 12.9 Vol % (12.0-20.0); BLOOD GAS PCO2 51 mmHg (38-42); BLOOD GAS PO2 100 mmHg (61-120); BLOOD GAS TOTAL HGB 9.7 G/DL (12.0-16.0)
[2017-06-01 08:13] LABS: CRITICAL VALUE YES; OXYGEN DEVICE VENTILATOR
[2017-06-01 08:15] LABS: DRAW SITE RT RADIAL; FIO2 40 %; NUMBER OF ARTERIAL PUNCTURES 1; STAT YES; ULNAR PULSE PRESENT; VENT SETTINGS PRVC/AC/20/550/1it/5
[2017-06-01] MEDS: RESP: ALBUTEROL 2.5 MG/IPRATROPIUM 0.5 MG NEB (SCH) NEB ×4 (08:24→19:33)
--- NOTE | 2017-06-01 08:25 | MB ---
cc: VANCE ZEPEDA DATE OF CONSULTATION: 06/01/2017 1941 HISTORY OF PRESENT ILLNESS The patient is a 76-year-old female with past medical history of hypertension, hyperlipidemia, diabetes mellitus, COPD, chronic kidney disease, who was admitted to [facility] yesterday under hospitalist service for acute renal failure and COPD exacerbation. On arrival the patient had BUN of 99 with a creatinine of 14 and potassium level 4.8. Chest x-ray on admission showed no evidence of any acute cardiopulmonary disease. She was seen by Dr. Lee from nephrology service and placed on bicarb drip. A renal ultrasound was obtained which showed no evidence of hydronephrosis. Her renal function continued to worsen. A Halicat was called this morning for respiratory distress. She was subsequently transferred to ICU and was intubated by Dr. Davila, the ED physician. ABG post-intubation showed severe hypercapnic and metabolic acidosis with a pH of 6.89, CO2 63, bicarb 12, pAO2 211, saturation 96% on PRVC mode rate of 14, tidal volume 500. I time one, PEEP five and FIO2 60%. Chest x-ray post-intubation showed ET tube above the brayan and bilateral interstitial pattern. Her laboratory data this morning is significant for hyperkalemia with potassium level 6.1, BUN of 118, creatinine 14.0. When seen the patient is intubated and sedated with Diprivan drip. Her current blood pressure is 179/90 with a pulse of 117. PAST MEDICAL HISTORY The past medical history is significant for: 1. Hypertension. 2. Hyperlipidemia. 3. Diabetes mellitus. 4. Chronic kidney disease stage IV. 5. COPD. PAST SURGICAL HISTORY Previous hysterectomy, previous cholecystectomy. SOCIAL HISTORY The patient is active smoker. No history of alcohol or illicit drug use. FAMILY HISTORY Kidney disease runs in the family. MEDICATIONS Current medications include: 1. Bicarb drip. 2. Solu-Medrol. 3. Sliding scale insulin. 4. Lipitor. REVIEW OF SYSTEMS As per HPI. The rest of the review of systems is unobtainable as the patient is intubated. PHYSICAL EXAMINATION GENERAL: A 76-year-old female intubated for respiratory failure. VITAL SIGNS: Afebrile, pulse of 117, blood pressure 179/90, saturation 98%. Vent setting PRVC rate of 14, tidal volume 500, I time 1, PEEP 5, FIO2 60%. HEENT: Atraumatic, normocephalic. Pupil equal, round, reactive to light and accommodation. Extraocular muscles intact. Conjunctivae pink. Nonicteric sclerae. Oral mucosa within normal. NECK: Supple. No JVD, adenopathy, thyromegaly. Trachea in the midline. Orally intubated. CARDIOVASCULAR: Tachycardic, normal S1-S2. No murmurs, rubs or gallops noted. PULMONARY: Bilateral equal air entry with scattered wheezing and coarse breath sounds. ABDOMEN: Soft, obese, nontender, no distension. Positive bowel sounds. EXTREMITIES: No cyanosis, clubbing, trace edema. NEURO: Intubated and sedated with Diprivan. LABORATORY DATA Sodium 133, potassium 6.1, chloride 100, CO2 14, BUN 118, creatinine 14, glucose 325, phosphorous 12.4, WBC 9.5, hemoglobin 9.2, hematocrit 29, platelet count 203. Urinalysis negative for leukocyte esterase, nitrite. RADIOGRAPHIC STUDIES Chest x-ray post-intubation showed bilateral interstitial pattern, ET tube above the brayan. EKG EKG on arrival showed sinus rhythm with a rate of 98 beats per minute. Low voltage QRS in precordial leads. IMPRESSION 1. Acute hypoxemic and hypercapnic respiratory failure. 2. Acute on chronic kidney disease. 3. Hyperkalemia and hyperphosphatemia. 4. Anion gap metabolic acidosis. 5. Hyperglycemia. 6. Anemia. 7. COPD. 8. Hypertension. 9. Hyperlipidemia. 10. Morbid obesity. RECOMMENDATIONS 1. Continue with Diprivan infusion for sedation and daily sedation vacation when appropriate. I will add fentanyl drip if needed. 2. Continue with vent support and maintain sats above 92%. 3. Bronchodilators in the form of DuoNeb q. 4 and continue with IV steroids. 4. Will initiate ICU vent bundle. 5. Increase respiratory rate to 20, tidal volume to 550 and will repeat ABG in 1 hour. 6. Monitor heart rate and blood pressure closely and maintain MAP greater than 65 mmHg. Monitor renal function, I&O's and avoid nephrotoxins. 7. Will treat hyperkalemia with 10 units of IV Regular insulin, amp of D50, 1 amp of calcium gluconate, 2 amps of sodium bicarb and Kayexalate. 8. Will discuss with Dr. Lee from nephrology as the patient will likely need hemodialysis given her acidosis, hyperkalemia and worsening renal function. 9. Place on Protonix 40 mg IV daily for GI prophylaxis and will initiate nutritional support within the next 24 hours if remains intubated. 10. Place on empiric antibiotics in the form of Zosyn for COPD exacerbation and monitor for signs of infections which include fever and WBC. Will check blood cultures x2 and a sputum culture with gram stain. 11. Increase sliding scale insulin to medium scale with Accu-Chek q. 4-hour for glycemic control. 12. Monitor CBC. 13. GI prophylaxis with Protonix 40 mg daily and DVT prophylaxis with SCDs and heparin subcu. 14. Case discussed with nursing staff. The patient is critically ill with respiratory failure, worsening renal function, hyperkalemia, severe metabolic and respiratory acidosis. Critical care time 40 minutes excluding procedures. MD SANNA Jade/MAYA /7:05 AM /7:55 AM
[2017-06-01] MEDS ORDERED: PANTOPRAZOLE SODIUM 40 MG VIAL IV PUSH SCH (09:00)
[2017-06-01] MEDS: SODIUM CHLORIDE 0.9% FLUSH 10 ML FLUSH IV FLUSH SCH ×2 (09:00→21:00)
[2017-06-01] MEDS ORDERED: INSULIN ASPART SUPPLEMENTAL SCALE SQ SCH (09:00)
[2017-06-01] MEDS ORDERED: SODIUM CHLOR 0.9% 1000 ML INJ 1,000 ML OTHER PRN (09:07)
[2017-06-01] MEDS ORDERED: SODIUM CHLOR 0.9% 1000 ML INJ 1,000 ML IV PRN (09:07)
[2017-06-01] MEDS ORDERED: ONDANSETRON HCL 4 MG/2 ML VIAL IV PUSH PRN (09:15)
[2017-06-01] MEDS ORDERED: MANNITOL 12.5 GM/50 ML VIAL IV PRN (09:15)
[2017-06-01] MEDS ORDERED: NITROGLYCERIN 0.4 MG SL 25 TABS/BTL SL PRN (09:15)
[2017-06-01] MEDS ORDERED: HEPARIN SODIUM - IV 10,000 UNITS/10 ML VIAL IV FLUSH PRN (09:15)
[2017-06-01] MEDS ORDERED: diphenhydrAMINE HCL 25 MG CAP PO PRN (09:15)
[2017-06-01] MEDS ORDERED: ACETAMINOPHEN 325 MG TAB PO PRN (09:15)
[2017-06-01] MEDS ORDERED: GELATIN 12 MM/7 MM FOAM TOP PRN (09:15)
[2017-06-01] MEDS ORDERED: SODIUM CHLORIDE 0.9% FLUSH 10 ML FLUSH IV FLUSH PRN (09:30)
[2017-06-01] MEDS ORDERED: HEPARIN SODIUM - IV 2,000 UNITS/2 ML VIAL IV FLUSH PRN (09:30)
[2017-06-01] MEDS ORDERED: INFLUENZA VIRUS VACCINE (QUADRIVALENT) 0.5 ML SYR IM ONE (10:00)
[2017-06-01] MEDS: methylPREDNISolone SOD SUCC 40 MG/1 ML VIAL IV PUSH SCH ×2 (10:30→19:59)
[2017-06-01] MEDS: fentaNYL DRIP 250 ML IV PRN (10:35)
--- NOTE | 2017-06-01 11:07 | PD.PROCEDR ---
[facility] Procedure Procedure REASON FOR PROCEDURE Hemodialysis access PROCEDURE PERFORMED Temporary dialysis catheter placement: Right internal jugular vein CONSENT Informed consent for procedure was obtained from sister. The risks and benefits of the procedure were discussed to include but limited to bleeding, clot formation, infection, and even . ANESTHESIA Local injection of 1% Lidocane DESCRIPTION OF THE PROCEDURE The patient was placed in supine, mild trendelenburg position. The area was exposed and cleansed with Chloraprep, times two. Large sterile drape was used to cover the patient, with the site exposed, under sterile conditions including cap, face mask, sterile gown, and sterile gloves. On single attempt, the introducer needle was inserted with negative pressure in syringe and venous flash was obtained. The guide wire was then advanced without any restriction and the needle was removed. The dilator was used without any complications. Using Seldinger technique the double lumen temporary dialysis catheter was advanced over the guide wire to a depth of 19 centimeters. The guide wire was removed. All ports were aspirated with dark venous blood return and flushed easily with sterile saline. All ports were capped. Antibiotic disc was placed around central line at puncture site. The central line was secured to the skin with two interrupted 2.0 silk sutures. The area was bandaged with sterile see- through central line bandage. RADIOLOGICAL DATA Ultrasound guidance was used to locate right internal jugular vein. Ultrasound was used to confirm wire placement within the lumen Stat chest x-ray was ordered for line placement. COMPLICATIONS: No apparent complications ESTIMATED BLOOD LOSS: Less than 1 cc. Chris Waite Jun 01, 2017 11:07
--- NOTE | 2017-06-01 11:20 | RADRPT ---
EXAM DATE/TIME: 06/01/2017 10:41 [facility] COMPARISON: CHEST SINGLE AP, June 01, 2017, 6:21. INDICATIONS : Post intubation. MEDICAL HISTORY : Chronic obstructive pulmonary disease. Hypercholesterolemia.Hypertension. Stage IV kidney disease. Fa tty liver. Diabetes. SURGICAL HISTORY : Umbilical hernia repair. Cholecystectomy. Hysterectomy. Appendectomy.Right knee replacement.Bilateral rotator cuff repair. ENCOUNTER: Subsequent ACUITY: 3 days PAIN SCORE: Non-responsive. LOCATION: chest FINDINGS: Mild bibasilar interstitial and airspace opacities are again noted. No large effusion. No pneumothora x. New right internal jugular cordis, tip in the lower superior vena cava. Patient remains intubated. En dotracheal tube tip is approximately 4 cm above the brayan. There is a nasogastric tube again seen co ursing into the stomach. CONCLUSION: 1. New right IJ central venous catheter with tip in the superior vena cava. Other lines and tubes unc hanged as above. 2. Mild bibasilar infiltrates persist. Christ Long MD on June 01, 2017 at 11:17 Board Certified Radiologist. This report was verified electronically.
[2017-06-01] MEDS: INSULIN NovoLIN REGULAR SUPPLEMENTAL SCALE SQ SCH ×4 (11:52→19:58)
--- NOTE | 2017-06-01 11:54 | ECHRPT ---
Indication: Heart Failure CONCLUSIONS The left ventricle is not well visualized. Normal left ventricular size. Wall thickness is normal. The left ventricular systolic function is possibly low normal with an estimated ejection fraction in the range of 50-55%. Wall motion abnormalities cannot be excluded on the basis of this study. Possible lipomatous hypertrophy of the interatrial septum. BP: / HR: Rhythm: Sinus MEASUREMENTS (Male / Female) Normal Values Technical Quality:Technically difficult study 2D ECHO LV Diastolic Diameter PLAX 4.3 cm 4.2 - 5.9 / 3.9 - 5.3 cm LV Systolic Diameter PLAX 3.5 cm IVS Diastolic Thickness 1.1 cm 0.6 - 1.0 / 0.6 - 0.9 cm LVPW Diastolic Thickness 0.7 cm 0.6 - 1.0 / 0.6 - 0.9 cm LV Relative Wall Thickness 0.4 RV Internal Dim ED PLAX 3.1 cm LA Systolic Diameter LX 3.6 cm 3.0 - 4.0 / 2.7 - 3.8 cm DOPPLER Mitral E Point Velocity 122.0 cm/s Mitral A Point Velocity 49.4 cm/s Mitral E to A Ratio 2.5 TR Peak Velocity 300.0 cm/s TR Peak Gradient 36.0 mmHg Right Atrial Pressure 10.0 mmHg Pulmonary Artery Systolic Pressu 46.0 mmHg Right Ventricular Systolic Press 46.0 mmHg FINDINGS LEFT VENTRICLE The left ventricle is not well visualized. Normal left ventricular size. Wall thickness is normal. The left ventricular systolic function is possibly low normal with an estimated ejection fraction in the range of 50-55%. Wall motion abnormalities cannot be excluded on the basis of this study. RIGHT VENTRICLE The right ventricular systoilc function is normal. LEFT ATRIUM The left atrial size is normal. RIGHT ATRIUM The right atrial size is normal. ATRIAL SEPTUM Normal atrial septal thickness without atrial level shunting by limited color doppler interrogation. AORTA The aortic root and proximal ascending aorta are normal in size on limited imaging. MITRAL VALVE Mitral annular calcification is present. AORTIC VALVE Trileaflet aortic valve. No aortic valve stenosis or regurgitation. TRICUSPID VALVE Structurally normal tricuspid valve. No tricuspid valve stenosis or regurgitation. PULMONARY VALVE No pulmonary valve regurgitation or stenosis. VESSELS The inferior vena cava is normal in size. PERICARDIUM No pericardial effusion. OTHER FINDINGS Possible lipomatous hypertrophy of the interatrial septum. Shayne Arnett MD (Electronically Signed) Final Date:01 June 2017 11:52
[2017-06-01] MEDS: PIPERACIL-TAZO 2.25 GM PREMIX 50 ML IV SCH ×2 (12:03→17:17)
[2017-06-01] MEDS: GENTAMICIN SULFATE (DIALYSIS USE ONLY) 20 MG/2 ML VIAL OTHER PRN (13:57)
[2017-06-01] MEDS: ALBUMIN 25% INJ 100 ML IV PRN ×3 (13:57→14:41)
[2017-06-01] MEDS: SODIUM BICARBONATE 8.4% INJ 75 MEQ in SODIUM CHLOR 0.45% 1000 ML INJ 1,000 ML IV SCH (15:36)
[2017-06-01 16:23] LABS: BLOOD GAS BASE EXCESS -1.2 mmol/L (-2-2); BLOOD GAS CARBOXYHEMOGLOBIN 1.7 % (0-4); BLOOD GAS HCO3 23 mmol/L (22-26); BLOOD GAS METHEMOGLOBIN 1.4 % (0-2); BLOOD GAS O2 HGB SATURATION 96 % (90-100); BLOOD GAS OXYGEN CONTENT 10.3 Vol % (12.0-20.0); BLOOD GAS PCO2 38 mmHg (38-42); BLOOD GAS PO2 113 mmHg (61-120); BLOOD GAS TOTAL HGB 7.5 G/DL (12.0-16.0); CRITICAL VALUE NO; OXYGEN DEVICE VENTILATOR
[2017-06-01 16:24] LABS: DRAW SITE RT BRACHIAL; FIO2 40 %; NUMBER OF ARTERIAL PUNCTURES 1; STAT YES; ULNAR PULSE PRESENT; VENT SETTINGS PRVC/AC/24/600/1s/5P
--- NOTE | 2017-06-01 17:20 | HHI.NPPN ---
Subjective History of Present Illness 76-year-old female with past medical history of hypertension, diabetes mellitus, hyperlipidemia, ischemic heart disease, chronic kidney disease, chronic obstructive pulmonary disease was admitted because of generalized weakness, decreased urine output. I he was called to see the patient for elevated BUN and creatinine. The patient is known to me from before. She has been following with me in the office and last time I saw her was on May 04 and at that time her creatinine was 2.2 with given the GFR of 19-20 she had advanced stage IV chronic kidney disease most likely because of diabetic nephropathy. Additional Remarks Patient is intubated and sedated, seen while on Dialysis. Review of Systems General General Remarks Intubated and sedated. Objective Data Data 06/01/17 06/02/17 19:00 07:00 Intake Total 310 ml Output Total 50 ml Balance 260 ml IV Total 310 ml Output Urine Total 50 ml Hemodialysis 0 ml Vital Signs Date Time Temp Pulse Resp B/P (MAP) Pulse Ox O2 Delivery O2 Flow Rate FiO2 06/01/17 16:58 99 40 06/01/17 16:15 84 24 114/56 (75) 99 06/01/17 16:00 86 23 106/56 (73) 99 06/01/17 15:45 84 23 107/50 (69) 97 06/01/17 15:30 84 24 106/52 (70) 98 06/01/17 15:15 84 20 102/55 (71) 100 06/01/17 15:00 99.0 06/01/17 14:06 88 23 89/49 (62) 99 06/01/17 14:05 86 24 99 06/01/17 14:00 90 24 77/46 (56) 99 06/01/17 14:00 96.8 06/01/17 13:50 94.8 88 24 100 06/01/17 13:45 86 24 100/55 (70) 100 06/01/17 13:40 86 24 103/54 (70) 100 06/01/17 13:35 88 24 104/56 (72) 100 06/01/17 13:30 88 24 107/58 (74) 100 06/01/17 13:25 88 23 112/59 (76) 100 06/01/17 13:23 100 40 06/01/17 13:20 90 24 114/65 (81) 100 06/01/17 13:15 88 23 118/59 (78) 99 06/01/17 13:10 86 10 107/62 (77) 06/01/17 13:05 88 10 101/53 (69) 06/01/17 13:00 88 23 105/56 (72) 06/01/17 12:55 86 23 98/51 (67) 100 06/01/17 12:50 88 24 100/55 (70) 100 06/01/17 12:40 92 24 115/80 (92) 99 06/01/17 12:35 90 23 97/53 (68) 100 06/01/17 12:30 90 24 96/50 (65) 100 06/01/17 12:25 94.7 92 24 101/54 (70) 100 06/01/17 12:20 92 23 105/57 (73) 06/01/17 12:15 92 24 96/50 (65) 100 06/01/17 12:10 92 24 99/51 (67) 100 06/01/17 12:05 94 23 104/56 (72) 99 06/01/17 12:00 40 06/01/17 12:00 92 24 96/49 (65) 100 06/01/17 11:55 94 23 85/53 (64) 100 06/01/17 11:50 94.8 92 23 87/51 (63) 100 06/01/17 11:45 94 23 88/50 (63) 100 06/01/17 11:40 94 24 91/50 (64) 100 06/01/17 11:35 94 23 97/50 (66) 100 06/01/17 11:30 96 24 96/51 (66) 99 06/01/17 11:25 96 24 111/57 (75) 96 06/01/17 11:20 96 24 95/61 (72) 100 06/01/17 11:17 92 23 98/50 (66) 100 06/01/17 11:15 94 23 70/62 (65) 100 06/01/17 11:07 94 23 97/59 (72) 100 06/01/17 11:05 96 24 106/48 (67) 100 06/01/17 11:00 94.1 06/01/17 11:00 96 24 108/52 (70) 100 06/01/17 10:53 99 40 06/01/17 10:45 100 37 116/64 (81) 98 06/01/17 10:30 96 24 108/53 (71) 99 06/01/17 10:15 96 22 111/54 (73) 99 06/01/17 10:00 94.4 100 28 124/51 (75) 98 06/01/17 09:45 98 23 113/60 (77) 100 06/01/17 09:30 100 23 106/54 (71) 98 06/01/17 09:15 102 24 114/63 (80) 98 06/01/17 09:10 97 40 06/01/17 09:00 102 19 129/61 (83) 96 06/01/17 08:51 104 19 133/64 (87) 89 06/01/17 08:45 94.1 106 20 139/67 (91) 90 06/01/17 08:30 106 22 129/67 (87) 98 06/01/17 08:26 98 40 06/01/17 08:15 104 20 121/56 (77) 96 06/01/17 08:00 40 06/01/17 08:00 93.9 106 19 118/60 (79) 96 06/01/17 07:45 106 19 115/72 (86) 96 06/01/17 07:30 110 20 123/66 (85) 97 06/01/17 07:15 102 20 113/71 (85) 96 06/01/17 07:03 108 20 137/62 (87) 98 06/01/17 07:00 106 20 137/62 (87) 99 06/01/17 06:57 40 06/01/17 06:45 96 40 06/01/17 06:32 119 06/01/17 06:30 97.4 119 20 187/95 (125) 99 06/01/17 06:25 98 60 06/01/17 06:20 99 100 06/01/17 06:20 98 100 06/01/17 06:00 117 147/87 (107) 99 06/01/17 04:00 96.9 75 24 141/89 (106) 95 06/01/17 00:00 97.3 87 20 135/86 (102) 97 05/31/17 20:00 97.3 95 25 137/87 (104) 95 05/31/17 19:40 93 Nasal Cannula 2.00 -: 05/31/17 0600 06/01/17 0545 Microbiology 06/01/17 Aerobic Blood Culture, Received Pending 06/01/17 Anaerobic Blood Culture, Received Pending 06/01/17 Aerobic Blood Culture, Received Pending 06/01/17 Anaerobic Blood Culture, Received Pending 06/01/17 Gram Stain, Received Pending 06/01/17 Sputum Culture, Received Pending Physical Exam General Appearance Remarks Intubated and sedated. Eyes Eye Exam: Pupils Equal Throat Throat Exam: Oral Mucosa [place] & Moist Neck Neck Exam: Neck Supple Pulmonary Resp Exam: Breath Sounds Equal, No Distress, Rhonchi, Decreased Bases, Diminished Breath Sounds, Poor Inspiratory Effort Cardiology CV Exam: Regular, Normal Sinus Rhythm Gastrointestinal/Abdomen GI Exam: Soft, Non-Tender, Bowel Sounds Present, Distended Extremeties Extremities Exam: Moderate Edema Neurologic Neuro Exam: Sedated Assessment/Plan Assessment Summary: MIRACLE/Acute Renal Failure, Hypertension, CKD Stage IV Problem List: (1) Chronic kidney disease (CKD) ICD Codes: N18.9 - Chronic kidney disease, unspecified (2) Oliguria ICD Codes: R34 - Anuria and oliguria (3) Diarrhea ICD Codes: R19.7 - Diarrhea, unspecified (4) Metabolic acidosis ICD Codes: E87.2 - Acidosis Status: Acute (5) Uremia ICD Codes: N19 - Unspecified kidney failure Status: Acute (6) Acute renal failure ICD Codes: N17.9 - Acute kidney failure, unspecified Status: Acute Plan Patient develop Resp. failure and intubated. Has severe metabolic acidosis, Resp and metabolic. Started oin HD, tolerated well. The BP is on lower side, not much fluid is removed. HD done, repeat ABG seen. BMP is pending. Follow the labs, HD will possibly be again in AM. Weaning as per CCM. D/W her brother and friend. Problem Qualifiers (1) Acute renal failure: Qualified Codes: N17.9 - Acute kidney failure, unspecified Lexy Lee MD Jun 01, 2017 17:20
[2017-06-01 17:36] LABS: BICARBONATE 23.8 MEQ/L (21.0-32.0); POTASSIUM 3.6 MEQ/L (3.5-5.1)
[2017-06-01 18:18] LABS: CALCIUM-PROTEIN CORRECTED 7.4 MG/DL (8.5-10.1)
[2017-06-01] MEDS ORDERED: BISACODYL 10 MG SUPP RECTAL PRN (18:30)
[2017-06-01] MEDS ORDERED: MAGNESIUM HYDROXIDE SUSP 30 ML CUP PO PRN (18:30)
[2017-06-01] MEDS ORDERED: CHLORHEXIDINE GLUCONATE 2 % 1 PACK (2 CLOTHS) TOP PRN (18:30)
[2017-06-01] MEDS ORDERED: SENNOSIDES 8.6 MG TAB PO PRN (18:30)
[2017-06-01] MEDS ORDERED: MIDAZOLAM HCL 2 MG/2 ML VIAL IV PUSH PRN (18:30)
[2017-06-01] MEDS ORDERED: MISCELLANEOUS NURSING INFORMATION XX SCH (18:30)
[2017-06-01] MEDS ORDERED: LACTULOSE SYRUP 20 GM/30 ML CUP PO PRN (18:30)
[2017-06-01] MEDS ORDERED: LORazepam 2 MG/ML VIAL IV PUSH PRN (18:30)
[2017-06-01] MEDS: ATORVASTATIN 40 MG TAB PO SCH (20:01)
[2017-06-01] MEDS: DOCUSATE SODIUM 50 MG/SENNA 8.6 MG TAB PO SCH (20:01)
[2017-06-01] MEDS: FAMOTIDINE 20 MG/2 ML VIAL IV PUSH SCH (20:02)
[2017-06-01] MEDS: CHLORHEXIDINE 0.12% (ORAL KIT) 15 ML CUP MT SCH (20:02)
[2017-06-02] VITALS (111 sets, daily range): BP systolic 74–147; BP diastolic 49–92; PULSE 68–144; RESP 0–25; TEMP 98.6–99.2; O2SAT 95–100
[2017-06-02] MEDS: RESP: ALBUTEROL 2.5 MG/IPRATROPIUM 0.5 MG NEB (SCH) NEB ×7 (00:07→23:40)
[2017-06-02] MEDS: PIPERACIL-TAZO 2.25 GM PREMIX 50 ML IV SCH ×3 (01:32→16:44)
[2017-06-02] MEDS ORDERED: AMIODARONE INJ 150 MG in DEXTROSE 5% IN WATER 100ML INJ 100 ML IV ONE ×2 (02:20)
[2017-06-02] MEDS ORDERED: AMIODARONE INJ 900 MG in DEXTROSE 5% IN WATE 500 ML INJ 482 ML IV PRN ×2 (02:30)
[2017-06-02] MEDS ORDERED: CALCIUM CHLORIDE INJ 1 GM in SODIUM CHLORIDE 0.9% INJ 100 ML IV ONE (02:30)
[2017-06-02] MEDS ORDERED: DILTIAZEM HCL 25 MG/5 ML VIAL IV ONE (02:30)
[2017-06-02] MEDS: AMIODARONE INJ 450 MG in D5W (EXCEL BAG) INJ 241 ML IV PRN ×2 (03:04→12:24)
[2017-06-02] MEDS: SODIUM BICARBONATE 8.4% INJ 75 MEQ in SODIUM CHLOR 0.45% 1000 ML INJ 1,000 ML IV SCH (03:04)
[2017-06-02] MEDS: CHLORHEXIDINE GLUCONATE 2 % 1 PACK (2 CLOTHS) TOP SCH (04:00)
[2017-06-02] MEDS: INSULIN NovoLIN REGULAR SUPPLEMENTAL SCALE SQ SCH ×6 (04:27→21:25)
[2017-06-02 04:48] LABS: AUTOMATED NEUTROPHIL # 9.2 TH/MM3 (1.8-7.7); BASOPHIL % 0.1 % (0.0-2.0); HEMATOCRIT 24.8 % (35.0-46.0); HEMO FLAGS DIFF FINAL; LYMPH % 3.7 % (9.0-44.0); LYMPHOCYTE # 0.4 TH/MM3 (1.0-4.8); MEAN CELL VOLUME 79.1 FL (80.0-100.0); MEAN CORPUSCULAR HGB CONC 32.9 % (32.0-36.0); MONO % 4.1 % (0.0-8.0); NEUT % 92.1 % (16.0-70.0); PLATELET COUNT 176 TH/MM3 (150-450); RED BLOOD COUNT 3.14 MIL/MM3 (4.00-5.30); RED CELL DISTRIBUTION WIDTH 16.9 % (11.6-17.2)
[2017-06-02 04:55] LABS: POTASSIUM 3.5 MEQ/L (3.5-5.1)
[2017-06-02 05:05] LABS: BICARBONATE 22.2 MEQ/L (21.0-32.0); CALCIUM-PROTEIN CORRECTED 7.8 MG/DL (8.5-10.1); TOTAL BILIRUBIN ADULT 0.5 MG/DL (0.2-1.0)
[2017-06-02] MEDS: HEPARIN SODIUM - SQ 10,000 UNITS/ML VIAL SQ SCH ×3 (05:59→21:24)
[2017-06-02] MEDS: ALBUMIN 25% INJ 100 ML IV PRN ×2 (08:06→08:07)
[2017-06-02] MEDS: EPOETIN ALFA 10,000 UNITS/ML VIAL IV PUSH PRN (08:07)
[2017-06-02] MEDS: GENTAMICIN SULFATE (DIALYSIS USE ONLY) 20 MG/2 ML VIAL OTHER PRN (08:07)
[2017-06-02] MEDS: DOCUSATE SODIUM 50 MG/SENNA 8.6 MG TAB PO SCH ×2 (09:00→21:24)
[2017-06-02] MEDS: FAMOTIDINE 20 MG/2 ML VIAL IV PUSH SCH ×2 (09:00→21:25)
[2017-06-02] MEDS: methylPREDNISolone SOD SUCC 40 MG/1 ML VIAL IV PUSH SCH ×2 (09:00→21:23)
--- NOTE | 2017-06-02 10:10 | HHI.NPPN ---
Subjective History of Present Illness 76-year-old female with past medical history of hypertension, diabetes mellitus, hyperlipidemia, ischemic heart disease, chronic kidney disease, chronic obstructive pulmonary disease was admitted because of generalized weakness, decreased urine output. I he was called to see the patient for elevated BUN and creatinine. The patient is known to me from before. She has been following with me in the office and last time I saw her was on May 04 and at that time her creatinine was 2.2 with given the GFR of 19-20 she had advanced stage IV chronic kidney disease most likely because of diabetic nephropathy. Additional Remarks Patient is intubated and now awake, now on Dialysis. Review of Systems General General Remarks Intubated and sedated. Objective Data Data 06/02/17 06/03/17 19:00 07:00 Intake Total 50 ml Output Total 2000 ml Balance -1950 ml IV Total 50 ml Hemodialysis 2000 ml Vital Signs Date Time Temp Pulse Resp B/P (MAP) Pulse Ox O2 Delivery O2 Flow Rate FiO2 06/02/17 09:01 116 24 108/56 (73) 100 06/02/17 08:46 118 24 111/63 (79) 100 06/02/17 08:31 112 23 111/64 (80) 100 06/02/17 08:16 118 24 118/57 (77) 100 06/02/17 08:01 98.9 114 23 116/79 (91) 100 06/02/17 08:00 40 06/02/17 07:56 100 40 06/02/17 07:46 112 24 117/66 (83) 100 06/02/17 07:31 124 24 115/68 (84) 100 06/02/17 07:18 142 20 120/75 (90) 100 06/02/17 07:16 144 25 101/70 (80) 100 06/02/17 07:01 104 24 106/68 (81) 100 06/02/17 06:29 96 24 94/60 (71) 99 06/02/17 06:16 96 23 74/55 (61) 99 06/02/17 06:01 102 24 98/56 (70) 99 06/02/17 06:00 110 98/56 06/02/17 05:46 102 24 94/59 (71) 100 06/02/17 05:31 104 23 103/50 (67) 100 06/02/17 05:16 110 24 94/66 (75) 100 06/02/17 05:01 102 24 92/51 (65) 100 06/02/17 04:31 104 24 92/54 (67) 100 06/02/17 04:16 106 0 83/53 (63) 100 06/02/17 04:05 100 40 06/02/17 04:01 98.6 124 2 86/57 (67) 98 06/02/17 04:00 40 06/02/17 03:46 92 23 87/58 (68) 100 06/02/17 03:31 92 24 82/52 (62) 100 06/02/17 03:28 104 90/51 06/02/17 03:23 104 23 90/51 (64) 100 06/02/17 03:04 131 118/61 06/02/17 03:02 131 118/61 06/02/17 02:46 126 23 118/61 (80) 100 06/02/17 02:31 124 24 136/88 (104) 100 06/02/17 02:16 122 24 101/59 (73) 100 06/02/17 02:01 128 24 93/69 (77) 100 06/02/17 01:57 124 24 101/56 (71) 100 06/02/17 01:46 128 24 82/54 (63) 99 06/02/17 01:31 136 24 103/67 (79) 99 06/02/17 01:30 99 40 06/02/17 01:16 144 8 98/75 (83) 99 06/02/17 01:01 98 24 135/92 (106) 100 06/02/17 00:46 74 15 113/56 (75) 99 06/02/17 00:31 68 5 131/61 (84) 100 06/02/17 00:16 78 11 142/66 (91) 100 06/02/17 00:01 99.2 68 24 147/73 (97) 100 06/02/17 00:00 40 06/01/17 23:46 68 24 145/76 (99) 100 06/01/17 23:31 70 23 145/73 (97) 100 06/01/17 23:16 68 23 151/67 (95) 100 06/01/17 23:01 68 12 155/66 (95) 100 06/01/17 22:46 72 8 143/73 (96) 99 06/01/17 22:31 70 1 146/66 (92) 99 06/01/17 22:30 99 40 06/01/17 22:16 100 11 138/65 (89) 94 06/01/17 22:01 72 23 146/72 (96) 100 06/01/17 22:00 72 22 100 06/01/17 21:46 70 0 160/78 (105) 100 06/01/17 21:31 72 5 155/77 (103) 100 06/01/17 21:16 72 3 164/82 (109) 100 06/01/17 21:01 70 0 154/68 (96) 100 06/01/17 21:00 68 0 100 06/01/17 20:46 70 0 141/81 (101) 99 06/01/17 20:31 72 0 148/72 (97) 100 06/01/17 20:15 72 0 130/76 (94) 100 06/01/17 20:00 40 06/01/17 20:00 98.6 70 8 131/68 (89) 100 06/01/17 19:45 86 3 125/64 (84) 99 06/01/17 19:35 100 40 06/01/17 19:30 74 6 161/83 (109) 100 06/01/17 19:15 72 9 154/78 (103) 100 06/01/17 19:00 72 1 155/75 (101) 100 06/01/17 18:15 98.6 88 8 147/79 (101) 99 06/01/17 18:00 72 24 129/69 (89) 100 06/01/17 17:45 74 24 135/69 (91) 100 06/01/17 17:30 80 24 140/69 (92) 99 06/01/17 17:30 80 24 140/69 (92) 99 06/01/17 17:28 40 06/01/17 17:15 98.9 84 24 149/72 (97) 99 06/01/17 17:04 90 24 145/67 (93) 99 06/01/17 17:03 96 21 136/59 (84) 99 06/01/17 17:00 94 9 148/69 (95) 99 06/01/17 16:58 99 40 10/26/17 16:45 106 35 149/85 (106) 95 06/01/17 16:30 86 24 122/64 (83) 99 06/01/17 16:15 84 24 114/56 (75) 99 06/01/17 16:15 99.1 84 24 114/56 (75) 99 06/01/17 16:00 86 23 106/56 (73) 99 06/01/17 15:45 84 23 107/50 (69) 97 06/01/17 15:30 84 24 106/52 (70) 98 06/01/17 15:15 84 20 102/55 (71) 100 06/01/17 15:00 99.0 06/01/17 14:06 88 23 89/49 (62) 99 06/01/17 14:05 86 24 99 06/01/17 14:00 90 24 77/46 (56) 99 06/01/17 14:00 96.8 06/01/17 13:50 94.8 88 24 100 06/01/17 13:45 86 24 100/55 (70) 100 06/01/17 13:40 86 24 103/54 (70) 100 06/01/17 13:35 88 24 104/56 (72) 100 06/01/17 13:30 88 24 107/58 (74) 100 06/01/17 13:25 88 23 112/59 (76) 100 06/01/17 13:23 100 40 06/01/17 13:20 90 24 114/65 (81) 100 06/01/17 13:15 88 23 118/59 (78) 99 06/01/17 13:10 86 10 107/62 (77) 06/01/17 13:05 88 10 101/53 (69) 06/01/17 13:00 88 23 105/56 (72) 06/01/17 12:55 86 23 98/51 (67) 100 06/01/17 12:50 88 24 100/55 (70) 100 06/01/17 12:40 92 24 115/80 (92) 99 06/01/17 12:35 90 23 97/53 (68) 100 06/01/17 12:30 90 24 96/50 (65) 100 06/01/17 12:25 94.7 92 24 101/54 (70) 100 06/01/17 12:20 92 23 105/57 (73) 06/01/17 12:15 92 24 96/50 (65) 100 06/01/17 12:10 92 24 99/51 (67) 100 06/01/17 12:05 94 23 104/56 (72) 99 06/01/17 12:00 40 06/01/17 12:00 92 24 96/49 (65) 100 06/01/17 11:55 94 23 85/53 (64) 100 06/01/17 11:50 94.8 92 23 87/51 (63) 100 06/01/17 11:45 94 23 88/50 (63) 100 06/01/17 11:40 94 24 91/50 (64) 100 06/01/17 11:35 94 23 97/50 (66) 100 06/01/17 11:30 96 24 96/51 (66) 99 06/01/17 11:25 96 24 111/57 (75) 96 06/01/17 11:20 96 24 95/61 (72) 100 06/01/17 11:17 92 23 98/50 (66) 100 06/01/17 11:15 94 23 70/62 (65) 100 06/01/17 11:07 94 23 97/59 (72) 100 06/01/17 11:05 96 24 106/48 (67) 100 06/01/17 11:00 94.1 06/01/17 11:00 96 24 108/52 (70) 100 06/01/17 10:53 99 40 06/01/17 10:45 100 37 116/64 (81) 98 06/01/17 10:30 96 24 108/53 (71) 99 06/01/17 10:15 96 22 111/54 (73) 99 -: 06/02/17 04106/02/17411 Physical Exam General Appearance Remarks Intubated and awake. Eyes Eye Exam: Pupils Equal Throat Throat Exam: Oral Mucosa [place] & Moist Neck Neck Exam: Neck Supple Pulmonary Resp Exam: Breath Sounds Equal, No Distress, Rhonchi, Decreased Bases, Diminished Breath Sounds, Poor Inspiratory Effort Cardiology CV Exam: Regular, Normal Sinus Rhythm Gastrointestinal/Abdomen GI Exam: Soft, Non-Tender, Bowel Sounds Present, Distended Extremeties Extremities Exam: Moderate Edema Neurologic Neuro Exam: Awake Psychiatric Psych Exam: Appropriate Responses Assessment/Plan Assessment Summary: MIRACLE/Acute Renal Failure, Hypertension, CKD Stage IV Problem List: (1) Chronic kidney disease (CKD) ICD Codes: N18.9 - Chronic kidney disease, unspecified (2) Oliguria ICD Codes: R34 - Anuria and oliguria (3) Diarrhea ICD Codes: R19.7 - Diarrhea, unspecified (4) Metabolic acidosis ICD Codes: E87.2 - Acidosis Status: Acute (5) Uremia ICD Codes: N19 - Unspecified kidney failure Status: Acute (6) Acute renal failure ICD Codes: N17.9 - Acute kidney failure, unspecified Status: Acute Plan Patient develop Resp. failure and intubated. Has severe metabolic acidosis, Resp and metabolic. Started oin HD, tolerated well. The BP is now better. HD now, removing 2 liters. Urine out put is low. Weaning as per CCM. Most likely will need supervisor long goods HD. Save left arm for AVF. Problem Qualifiers (1) Chronic kidney disease (CKD): Qualified Codes: N18.5 - Chronic kidney disease, stage 5 (2) Acute renal failure: Qualified Codes: N17.9 - Acute kidney failure, unspecified Lexy Lee MD Jun 02, 2017 10:10
[2017-06-02] MEDS: CHLORHEXIDINE 0.12% (ORAL KIT) 15 ML CUP MT SCH ×2 (12:21→19:40)
[2017-06-02] MEDS: SODIUM CHLORIDE 0.9% FLUSH 10 ML FLUSH IV FLUSH SCH ×2 (12:21→21:26)
[2017-06-02] MEDS: PROPOFOL 1000 MG/100 ML INJ 100 ML IV PRN ×2 (12:25→19:42)
[2017-06-02 16:15] LABS: BLOOD GAS CARBOXYHEMOGLOBIN 0.6 % (0-4); BLOOD GAS HCO3 26 mmol/L (22-26); BLOOD GAS METHEMOGLOBIN 1.2 % (0-2); BLOOD GAS O2 HGB SATURATION 96 % (90-100); BLOOD GAS OXYGEN CONTENT 11.1 Vol % (12.0-20.0); BLOOD GAS PCO2 35 mmHg (38-42); BLOOD GAS PO2 156 mmHg (61-120); CRITICAL VALUE NO; OXYGEN DEVICE VENT PRVC/AC
[2017-06-02 16:16] LABS: DRAW SITE RT BRACHIAL; FIO2 40 %; NUMBER OF ARTERIAL PUNCTURES 2; STAT NO; ULNAR PULSE PRESENT; VENT SETTINGS RR24/VT600/IT1/PEEP5
--- NOTE | 2017-06-02 16:33 | HHI.CCPN ---
Subjective Remarks/Hospital Course The patient is a 76-year-old female with past medical history of hypertension, hyperlipidemia, diabetes mellitus, COPD, chronic kidney disease, who was admitted to [facility] yesterday under hospitalist service for acute renal failure and COPD exacerbation. On arrival the patient had BUN of 99 with a creatinine of 14 and potassium level 4.8. Chest x-ray on admission showed no evidence of any acute cardiopulmonary disease. She was seen by Dr. Lee from nephrology service and placed on bicarb drip. A renal ultrasound was obtained which showed no evidence of hydronephrosis. Her renal function continued to worsen. A Halicat was called this morning for respiratory distress. She was subsequently transferred to ICU and was intubated by Dr. Davila, the ED physician. ABG post-intubation showed severe hypercapnic and metabolic acidosis with a pH of 6.89, CO2 63, bicarb 12, pAO2 211, saturation 96 % on PRVC mode rate of 14, tidal volume 500. I time one, PEEP five and FIO2 60% . Chest x-ray post-intubation showed ET tube above the brayan and bilateral interstitial pattern. Her laboratory data this morning is significant for hyperkalemia with potassium level 6.1, BUN of 118, creatinine 14.0. When seen the patient is intubated and sedated with Diprivan drip. Her current blood pressure is 179/90 with a pulse of 117. 06/01 Patient s/p HD yesterday and underwent HD session today with 2L fluid removal. Patient remains intubated on low dose Diprivan but awake, alert and follows commands. Afebrile. She went into Afib with RVR overnight and started on Amio drip. Objective Vital Signs Date Time Temp Pulse Resp B/P (MAP) Pulse Ox O2 Delivery O2 Flow Rate FiO2 06/02/17 15:14 100 40 06/02/17 14:16 84 23 117/79 (92) 06/02/17 08:01 98.9 05/31/17 19:40 Nasal Cannula 2.00 Intake and Output 06/02/17 06/02/17 06/03/17 08:00 16:00 00:00 Intake Total 2219 ml 50 ml Output Total 50 ml 2000 ml Balance 2169 ml -1950 ml Result Diagram: 06/02/17 0412 06/02/17411 Other Results Laboratory Tests Test 06/01/17 22:15 06/02/17 04:12 06/02/17 16:05 Nasal Screen MRSA (PCR) MRSA NOT DETECTED White Blood Count 10.0 TH/MM3 Red Blood Count 3.14 MIL/MM3 Hemoglobin 8.2 GM/DL Hematocrit 24.8 % Mean Corpuscular Volume 79.1 FL Mean Corpuscular Hemoglobin 26.0 PG Mean Corpuscular Hemoglobin Concent 32.9 % Red Cell Distribution Width 16.9 % Platelet Count 176 TH/MM3 Mean Platelet Volume 8.8 FL Neutrophils (%) (Auto) 92.1 % Lymphocytes (%) (Auto) 3.7 % Monocytes (%) (Auto) 4.1 % Eosinophils (%) (Auto) 0.0 % Basophils (%) (Auto) 0.1 % Neutrophils # (Auto) 9.2 TH/MM3 Lymphocytes # (Auto) 0.4 TH/MM3 Monocytes # (Auto) 0.4 TH/MM3 Eosinophils # (Auto) 0.0 TH/MM3 Basophils # (Auto) 0.0 TH/MM3 CBC Comment DIFF FINAL Differential Comment Blood Urea Nitrogen 81 MG/DL Creatinine 9.30 MG/DL Random Glucose 169 MG/DL Total Protein 5.9 GM/DL Albumin 3.2 GM/DL Calcium Level 7.2 MG/DL Alkaline Phosphatase 61 U/L Aspartate Amino Transf (AST/SGOT) 30 U/L Alanine Aminotransferase (ALT/SGPT) 55 U/L Total Bilirubin 0.5 MG/DL Sodium Level 137 MEQ/L Potassium Level 3.5 MEQ/L Chloride Level 100 MEQ/L Carbon Dioxide Level 22.2 MEQ/L Anion Gap 15 MEQ/L Estimat Glomerular Filtration Rate 4 ML/MIN Protein Corrected Calcium 7.8 MG/DL Blood Gas Puncture Site RT BRACHIAL Blood Gas Patient Temperature 37.0 Blood Gas HCO3 26 mmol/L Blood Gas Base Excess 3.0 mmol/L Blood Gas Oxygen Saturation 96 % Arterial Blood pH 7.49 Arterial Blood Partial Pressure CO2 35 mmHg Arterial Blood Partial Pressure O2 156 mmHg Arterial Blood Oxygen Content 11.1 Vol % Arterial Blood Carboxyhemoglobin 0.6 % Arterial Blood Methemoglobin 1.2 % Blood Gas Hemoglobin 8.0 G/DL Oxygen Delivery Device VENT PRVC/AC Blood Gas Ventilator Setting RR24/VT600/IT1/PEEP5 Blood Gas Inspired Oxygen 40 % Imaging Last Impressions Chest X-Ray 06/01/17 0606 Signed Impressions: Service Date/Time: May 06:21 - CONCLUSION: 1. Adequate placement of endotracheal tube. Jamie Arellano MD Renal Ultrasound 05/31/17 0000 Signed Impressions: Service Date/Time: Wednesday, May 31, 2017 08:54 - CONCLUSION: 1. Abnormal appearance to the left kidney with diminutive size and poor delineation of the parenchymal architecture. 2. No gross abnormality seen in the right kidney. Aramis Scott MD Objective Remarks GENERAL: Patient is 76 yo intubated SKIN: Warm and dry. HEAD: Normocephalic. EYES: No scleral icterus. No injection or drainage. NECK: Supple, trachea midline. No JVD or lymphadenopathy. CARDIOVASCULAR: Regular rate and rhythm without murmurs, gallops, or rubs. RESPIRATORY: Breath sounds equal bilaterally. No accessory muscle use. GASTROINTESTINAL: Abdomen soft, non-tender, nondistended. MUSCULOSKELETAL: No cyanosis, or edema. Neuro: Intubated A/P Assessment and Plan 1. Acute hypoxemic and hypercapnic respiratory failure. 2. Acute on chronic kidney disease. 3. s/p Hyperkalemia and hyperphosphatemia. 4. PAF 5. Hyperglycemia. 6. Anemia. 7. COPD. 8. Hypertension. 9. Hyperlipidemia. 10. Morbid obesity. Plan Neuro: On Diprivan infusion for sedation. Daily sedation vacation Pulm: Continue with vent support and maintain sats >92%. Bronchodilators, Solumederol 40mg Q12 ICU vent bundle.SBT daily as marcin. Decrease RR 18 Pulm eval- discussed with Dr. Hammonds CV: Monitor HR and BP and maintain MAP>65 mmHg. On Amio drip. Echo showed 50-55% : Monitor renal function, I&O's and avoid nephrotoxins. HD initiated 06/01, s/p HD today with removal 2L. GI: On Pepcid 10mg IV Q12 for GI prophylaxis. Start tube feeds tomorrow if remains intubated. ID: Continue with abx( Zosyn) monitor for signs of infections(fever and WBC) sputum culture 06/01: GNR Endo: SSI medium scale with Accu-Chek q. 4-hour for glycemic control. Heme: Monitor CBC. GI prophylaxis with Protonix 40 mg daily and DVT prophylaxis with SCDs and heparin subcu. Lines: Peripheral IV's, Right IJ vascath placed 06/01 Level 3 Felix Schultz MD Jun 02, 2017 16:33
[2017-06-02] MEDS: fentaNYL DRIP 250 ML IV PRN (16:44)
--- NOTE | 2017-06-02 17:47 | MB ---
cc: CHAPIN ZEPEDA DATE OF CONSULTATION: 06/02/2017. REASON FOR CONSULTATION: Evaluation for respiratory failure and COPD. REQUESTING PHYSICIAN: Dr. Schultz. HISTORY OF PRESENT ILLNESS: Ms. Wilkinson is a pleasant 76-year-old female with longstanding history of COPD and nicotine use. She was smoking two to three packs a day but she cut down to about bdd-[id number]-[id number]-half packs a day. The patient has not been doing well over the last many days. She was having cough, congestion, worsening of shortness of breath. She was admitted to the hospital with respiratory failure and acute renal failure. The patient had a workup done. She was put on a ventilator. Her initial blood gas showed pH 6.89, pC02 63, p02 of 211. She was started on bicarbonate drip and she has had hemodialysis. Her renal function has significantly improved. Potassium has improved and a repeat blood gas on 40% FIO2 shows pH 7.49, pC02 35, p02 of 156. CBC showed white blood cell count 10.0, hemoglobin 8.2, hematocrit 24.8, MCV 17, platelet count 176,000. Sodium 137, potassium 3.7, chloride 100, carbon dioxide 22, BUN 81, creatinine 9.30. Chest x-ray shows no acute infiltrate. PAST MEDICAL HISTORY: Her past medical history is significant for: 1. History of COPD. 2. Hypertension. 3. History of diabetes mellitus. 4. Chronic kidney disease. MEDICATIONS: She is currently takin. Famotidine. 2. Amiodarone IV. 3. Solu-Medrol 40 milligrams q. 12 hours. 5. Zosyn q. 8 hours. 6. Fentanyl drip. ALLERGIES: SHE IS ALLERGIC TO SULFA. SOCIAL HISTORY: She is . She lives alone. She has a long history of smoking and cut down to one to mwk-dph-d-half packs a day. Drinks socially. 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 FAMILY HISTORY: She has two children. One son with cancer. REVIEW OF SYSTEMS: She lives alone. Her daughter is at the bedside. She states that normally the patient is able to walk inside the house and is able to take care of herself. She has no fever or chills. No night sweats. No headache or dizziness. No malignancy. PHYSICAL EXAMINATION: GENERAL: The physical examination reveals a well-built and well- nourished female on ventilator. She is alert and follows commands. VITAL SIGNS: Blood pressure is 108/50, heart rate 78, respirations 16, temperature 98. HEAD, EYES, EARS, NOSE, THROAT: Pupils are equal and reactive to light. Oral mucosa and nasal mucosa normal. NECK: The neck is supple. JVP not raised. CHEST: She has expiratory rhonchi. CARDIOVASCULAR: S1-S2 normal. ABDOMEN: Benign. EXTREMITIES: No edema. IMPRESSION: 1. Hypercapnic respiratory failure which has improved. 2. Acute on chronic renal failure. 3. Metabolic acidosis, improved. 4. Hyperkalemia. 5. Diabetes mellitus. 6. Nicotine use. PLAN: 1. I discussed with the patient and her daughter that we will maintain her on the ventilator. 2. IV Solu-Medrol. 3. Aerosol treatment. 4. Monitor her blood sugar. 5. After dialysis tomorrow, will give her C-PAP and try to extubate her. 6. I advised her strongly to quit smoking. 7. When she gets better, we will check Pulmonary function studies. Further treatment will depend on the course in the hospital. Thank you, Dr. Schultz, for this consult. MD ADAMS Chambers/JCOnesimo /5:21 PM /5:26 PM BANG
[2017-06-02] MEDS: ATORVASTATIN 40 MG TAB PO SCH (21:24)
[2017-06-03] VITALS (107 sets, daily range): BP systolic 117–195; BP diastolic 53–81; PULSE 60–106; RESP 15–33; TEMP 98.4–99.3; O2SAT 82–100
[2017-06-03] MEDS: PROPOFOL 1000 MG/100 ML INJ 100 ML IV PRN ×3 (02:34→22:43)
[2017-06-03] MEDS: RESP: ALBUTEROL 2.5 MG/IPRATROPIUM 0.5 MG NEB (SCH) NEB ×5 (03:00→19:50)
[2017-06-03] MEDS: CHLORHEXIDINE GLUCONATE 2 % 1 PACK (2 CLOTHS) TOP SCH (04:00)
[2017-06-03] MEDS: HEPARIN SODIUM - SQ 10,000 UNITS/ML VIAL SQ SCH ×3 (05:14→20:58)
[2017-06-03] MEDS: INSULIN NovoLIN REGULAR SUPPLEMENTAL SCALE SQ SCH ×6 (05:15→20:02)
[2017-06-03 06:03] LABS: AUTOMATED NEUTROPHIL # 8.1 TH/MM3 (1.8-7.7); HEMATOCRIT 24.4 % (35.0-46.0); LYMPH % 4.2 % (9.0-44.0); LYMPHOCYTE # 0.4 TH/MM3 (1.0-4.8); MEAN CELL VOLUME 78.5 FL (80.0-100.0); MEAN CORPUSCULAR HGB CONC 33.1 % (32.0-36.0); MONO % 3.2 % (0.0-8.0); NEUT % 92.6 % (16.0-70.0); PLATELET COUNT 177 TH/MM3 (150-450); RED CELL DISTRIBUTION WIDTH 17.9 % (11.6-17.2); WHITE BLOOD COUNT 8.8 TH/MM3 (4.0-11.0)
--- NOTE | 2017-06-03 06:11 | RADRPT ---
EXAM DATE/TIME: 06/03/2017 05:46 [facility] COMPARISON: CHEST SINGLE AP, June 01, 2017, 10:41. INDICATIONS : Shortness of breath. MEDICAL HISTORY : Chronic obstructive pulmonary disease. Hypercholesterolemia. Hypertension. Stage IV kidney diseas e. Fatty liver, Diabetes SURGICAL HISTORY : Umbilical hernia repair. Cholecystectomy. Hysterectomy, Appendectomy.Right knee replacement.Bilateral rotator cuff repair ENCOUNTER: Subsequent ACUITY: 4 - 6 days PAIN SCORE: Non-responsive. LOCATION: Bilateral chest FINDINGS: Mild bibasilar parenchymal opacities persist without significant change. No large effusion demonstrat ed. No pneumothorax. Endotracheal tube tip is approximately 5 cm above the brayan. Nasogastric tube courses into the stoma ch. There is a right internal jugular central venous catheter again noted, tip in the superior vena c jada. CONCLUSION: No significant change. Christ Long MD on June 03, 2017 at 6:08 Board Certified Radiologist. This report was verified electronically.
[2017-06-03 06:21] LABS: HEMO FLAGS AUTO DIFF
[2017-06-03 06:25] LABS: ACANTHOCYTES 1+ (NORMAL); OVALOCYTES 1+ (NORMAL); PLATELET ESTIMATE SMEAR NORMAL (NORMAL); PLATELET MORPHOLOGY NORMAL (NORMAL); SCAN/DIFF AUTO DIFF CONFIRMED
[2017-06-03 06:26] LABS: CHLORIDE 97 MEQ/L (98-107); POTASSIUM 3.6 MEQ/L (3.5-5.1); SODIUM (NA) 136 MEQ/L (136-145)
[2017-06-03 06:30] LABS: ANION GAP 13 MEQ/L (5-15); BICARBONATE 26.1 MEQ/L (21.0-32.0); MAGNESIUM 2.1 MG/DL (1.5-2.5)
[2017-06-03 06:40] LABS: ALKALINE PHOSPHATASE 55 U/L (45-117); ALT (GPT) 51 U/L (10-53); AST (GOT) 20 U/L (15-37); BLOOD UREA NITROGEN 53 MG/DL (7-18); GLOMERULAR FILTRATION RATE 6 ML/MIN (>89); TOTAL BILIRUBIN ADULT 0.6 MG/DL (0.2-1.0)
--- NOTE | 2017-06-03 06:55 | HHI.CCPN ---
Subjective Remarks/Hospital Course The patient is a 76-year-old female with past medical history of hypertension, hyperlipidemia, diabetes mellitus, COPD, chronic kidney disease, who was admitted to [facility] yesterday under hospitalist service for acute renal failure and COPD exacerbation. On arrival the patient had BUN of 99 with a creatinine of 14 and potassium level 4.8. Chest x-ray on admission showed no evidence of any acute cardiopulmonary disease. She was seen by Dr. Lee from nephrology service and placed on bicarb drip. A renal ultrasound was obtained which showed no evidence of hydronephrosis. Her renal function continued to worsen. A Halicat was called this morning for respiratory distress. She was subsequently transferred to ICU and was intubated by Dr. Davila, the ED physician. ABG post-intubation showed severe hypercapnic and metabolic acidosis with a pH of 6.89, CO2 63, bicarb 12, pAO2 211, saturation 96 % on PRVC mode rate of 14, tidal volume 500. I time one, PEEP five and FIO2 60% . Chest x-ray post-intubation showed ET tube above the brayan and bilateral interstitial pattern. Her laboratory data this morning is significant for hyperkalemia with potassium level 6.1, BUN of 118, creatinine 14.0. When seen the patient is intubated and sedated with Diprivan drip. Her current blood pressure is 179/90 with a pulse of 117. 06/02 Patient s/p HD 06/01 with 2L fluid removal, 2 L removed today as well. . Patient remains intubated on low dose Diprivan but awake, alert and follows commands. Afebrile. She went into Afib with RVR overnight and started on Amio drip. Subjective: 06/03 Converted to sinus with PAC's on amiodarone. Remains on mechanical ventilation. UOP 50 ml over last 24 hours. Following commands on sedation, will do SBT. Plan for HD today per discussion with INTERNSHIP COORDINATOR. Objective Vital Signs Date Time Temp Pulse Resp B/P (MAP) Pulse Ox O2 Delivery O2 Flow Rate FiO2 06/03/17 06:16 70 17 121/56 (77) 96 06/03/17 05:20 35 06/03/17 04:01 98.7 05/31/17 19:40 Nasal Cannula 2.00 Intake and Output 1006/03/17 06/04/17 08:00 16:00 00:00 Intake Total 650 ml Output Total 250 ml Balance 400 ml Result Diagram: 06/03/17 0545 06/03/17 0545 Other Results Laboratory Tests Test 06/02/17 16:05 Blood Gas Puncture Site RT BRACHIAL Blood Gas Patient Temperature 37.0 Blood Gas HCO3 26 mmol/L (22-26) Blood Gas Base Excess 3.0 mmol/L (-2-2) Blood Gas Oxygen Saturation 96 % (90-100) Arterial Blood pH 7.49 (7.380-7.420) Arterial Blood Partial Pressure CO2 35 mmHg (38-42) Arterial Blood Partial Pressure O2 156 mmHg (61-120) Arterial Blood Oxygen Content 11.1 Vol % (12.0-20.0) Arterial Blood Carboxyhemoglobin 0.6 % (0-4) Arterial Blood Methemoglobin 1.2 % (0-2) Blood Gas Hemoglobin 8.0 G/DL (12.0-16.0) Oxygen Delivery Device VENT PRVC/AC Blood Gas Ventilator Setting RR24/VT600/IT1/PEEP5 Blood Gas Inspired Oxygen 40 % Imaging Last Impressions Chest X-Ray 06/01/17 0606 Signed Impressions: Service Date/Time: May 06:21 - CONCLUSION: 1. Adequate placement of endotracheal tube. Jamie Arellano MD Renal Ultrasound 05/31/17 0000 Signed Impressions: Service Date/Time: Wednesday, May 31, 2017 08:54 - CONCLUSION: 1. Abnormal appearance to the left kidney with diminutive size and poor delineation of the parenchymal architecture. 2. No gross abnormality seen in the right kidney. Aramis Scott MD Objective Remarks GENERAL: Patient is 76 yo intubated SKIN: Warm and dry. HEAD: Normocephalic. EYES: No scleral icterus. No injection or drainage. NECK: Supple, trachea midline. No JVD or lymphadenopathy. CARDIOVASCULAR: Regular rate and rhythm without murmurs, gallops, or rubs. RESPIRATORY: Coarse bilateral breath sounds. GASTROINTESTINAL: Abdomen soft, non-tender, nondistended. MUSCULOSKELETAL: No cyanosis, 1+ edema all extremities. NEURO: Intubated, moves all extremities spontaneously and follows commands. A/P Assessment and Plan 1. Acute hypoxemic and hypercapnic respiratory failure. 2. Acute on chronic kidney disease. 3. s/p Hyperkalemia and hyperphosphatemia. 4. PAF 5. Hyperglycemia. 6. Anemia. 7. COPD. 8. Hypertension. 9. Hyperlipidemia. 10. Morbid obesity. Plan Neuro: Anxiety On Diprivan infusion for sedation. Fentanyl drip for analgosedation. Daily sedation vacation Pulm: Acute hypercapnic respiratory failure Tobacco abuse Continue with vent support and maintain sats >92%. SBT daily and extubate when tolerated. CXR still with some pulmonary edema. Bronchodilators, Solumederol 40mg Q12 Pulm following, Dr. Hammonds CV: Hypertension Hyperlipidemia Paroxysmal atrial fibrillation Monitor HR and BP and maintain MAP>65 mmHg. Converted to sinus rhythm after amiodarone infusion. We'll DC amiodarone and monitor Echo showed 50-55% Continue atorvastatin 80 mg by mouth daily at bedtime Normotensive currently on sedation : CKD Stage IV, now on HD and probable ESRD with residential dialysis. Diabetic nephropathy Monitor renal function, I&O's and avoid nephrotoxins. HD started 06/01 with 2 KG removal, 06/02 with 2 KG removal. GI: On Pepcid 10mg IV Q12 for GI prophylaxis. Will initiate enteral feeding today. Suplena and followup nutrition recs. ID: Continue with abx( Zosyn) monitor for signs of infections(fever and WBC) sputum culture 06/01: GNR Afebrile no leukocytosis. Endo: SSI medium scale with Accu-Chek q. 4-hour for glycemic control. Glucose is above target. Received 14 units regular coverage and was not on tube feeds. Start Detemir 5 q12. Heme: Monitor CBC. GI prophylaxis with Protonix 40 mg daily and DVT prophylaxis with SCDs and heparin subcu. Lines: Peripheral IV's, Right IJ vascath placed 06/01 Level 3 Bonny Hurtado MD Jun 03, 2017 06:55
[2017-06-03] MEDS: DOCUSATE SODIUM 50 MG/SENNA 8.6 MG TAB PO SCH ×2 (09:17→20:01)
[2017-06-03] MEDS: FAMOTIDINE 20 MG/2 ML VIAL IV PUSH SCH ×2 (09:20→20:01)
[2017-06-03] MEDS: methylPREDNISolone SOD SUCC 40 MG/1 ML VIAL IV PUSH SCH ×2 (09:22→20:04)
[2017-06-03] MEDS: INSULIN DETEMIR 100 UNITS/ML VIAL SQ SCH ×2 (09:23→20:54)
[2017-06-03] MEDS: PIPERACIL-TAZO 2.25 GM PREMIX 50 ML IV SCH ×3 (09:23→16:02)
[2017-06-03] MEDS: SODIUM CHLORIDE 0.9% FLUSH 10 ML FLUSH IV FLUSH SCH ×2 (09:24→20:03)
[2017-06-03] MEDS: CHLORHEXIDINE 0.12% (ORAL KIT) 15 ML CUP MT SCH ×2 (09:25→20:00)
[2017-06-03] MEDS: AMIODARONE INJ 450 MG in D5W (EXCEL BAG) INJ 241 ML IV PRN (09:26)
--- NOTE | 2017-06-03 16:58 | HHI.NPPN ---
Subjective History of Present Illness 76-year-old female with past medical history of hypertension, diabetes mellitus, hyperlipidemia, ischemic heart disease, chronic kidney disease, chronic obstructive pulmonary disease was admitted because of generalized weakness, decreased urine output. I he was called to see the patient for elevated BUN and creatinine. The patient is known to me from before. She has been following with me in the office and last time I saw her was on May 04 and at that time her creatinine was 2.2 with given the GFR of 19-20 she had advanced stage IV chronic kidney disease most likely because of diabetic nephropathy. Additional Remarks Patient is intubated and now awake, now on Dialysis. Review of Systems General General Remarks Intubated and sedated. Objective Data Data 06/03/17 06/04/17 19:00 07:00 Output Total 25 ml Balance -25 ml Output Urine Total 25 ml Vital Signs Date Time Temp Pulse Resp B/P (MAP) Pulse Ox O2 Delivery O2 Flow Rate FiO2 06/03/17 16:35 98 35 06/03/17 16:00 64 18 163/59 (93) 98 06/03/17 16:00 35 06/03/17 15:00 62 17 98 06/03/17 15:00 62 17 166/58 (94) 98 06/03/17 14:32 64 18 167/60 (95) 98 06/03/17 14:32 64 18 167/60 (95) 98 06/03/17 14:30 62 18 99 06/03/17 14:17 62 17 164/56 (92) 98 06/03/17 14:17 62 17 164/56 (92) 98 06/03/17 14:02 62 18 160/58 (92) 98 06/03/17 14:02 62 18 160/58 (92) 98 06/03/17 14:00 62 18 98 06/03/17 14:00 62 18 98 06/03/17 13:47 64 18 156/60 (92) 98 06/03/17 13:45 98 35 06/03/17 13:32 159/59 (92) 06/03/17 13:32 64 17 159/59 (92) 98 06/03/17 13:30 64 17 98 06/03/17 13:17 66 18 152/58 (89) 98 06/03/17 13:17 66 18 152/58 (89) 98 06/03/17 13:15 64 17 97 06/03/17 13:02 88 27 155/63 (93) 82 06/03/17 13:02 88 27 155/63 (93) 82 06/03/17 13:00 98.5 80 33 90 06/03/17 13:00 80 33 90 06/03/17 12:47 64 18 156/63 (94) 97 06/03/17 12:45 62 18 97 06/03/17 12:32 62 18 151/61 (91) 96 06/03/17 12:30 62 18 96 06/03/17 12:17 62 17 150/59 (89) 96 06/03/17 12:15 62 18 96 06/03/17 12:02 62 18 151/59 (89) 98 06/03/17 12:00 62 17 99 06/03/17 12:00 62 17 99 06/03/17 12:00 35 06/03/17 11:47 62 17 147/59 (88) 99 06/03/17 11:45 98.4 60 17 99 06/03/17 11:32 62 18 151/62 (91) 99 06/03/17 11:30 62 18 98 06/03/17 11:29 100 35 06/03/17 11:17 60 17 149/63 (91) 97 06/03/17 11:15 62 17 97 06/03/17 11:02 64 17 152/69 (96) 98 06/03/17 11:00 68 17 98 06/03/17 10:47 60 18 142/58 (86) 97 06/03/17 10:45 60 17 97 06/03/17 10:32 60 18 132/56 (81) 97 06/03/17 10:30 60 18 97 06/03/17 10:17 62 17 146/55 (85) 98 06/03/17 10:15 62 17 98 06/03/17 10:02 66 18 135/54 (81) 98 06/03/17 10:00 66 17 98 06/03/17 09:47 68 17 148/59 (88) 99 06/03/17 09:45 68 17 99 06/03/17 09:32 74 18 147/61 (89) 98 06/03/17 09:30 74 18 97 06/03/17 09:26 99 142/55 06/03/17 09:17 70 17 142/55 (84) 99 06/03/17 09:15 70 18 99 06/03/17 09:02 72 17 148/58 (88) 99 06/03/17 09:00 72 18 99 06/03/17 08:50 40 06/03/17 08:47 84 17 149/58 (88) 99 06/03/17 08:45 70 17 98 06/03/17 08:32 74 18 146/59 (88) 98 06/03/17 08:30 98.6 74 18 98 06/03/17 08:17 80 17 143/56 (85) 06/03/17 08:15 86 18 06/03/17 08:05 97 35 06/03/17 08:02 104 23 175/72 (106) 97 06/03/17 08:00 104 20 97 06/03/17 08:00 35 06/03/17 07:47 102 15 195/81 (119) 99 06/03/17 07:45 106 16 99 06/03/17 07:39 96 40 06/03/17 07:31 86 17 177/78 (111) 97 06/03/17 07:30 98.6 88 18 97 06/03/17 07:16 76 18 152/73 (99) 98 06/03/17 07:01 84 19 138/66 (90) 96 06/03/17 06:46 72 17 134/58 (83) 98 06/03/17 06:31 72 17 138/60 (86) 96 06/03/17 06:16 70 17 121/56 (77) 96 06/03/17 06:01 70 17 117/55 (75) 95 06/03/17 06:00 96 06/03/17 05:46 76 17 130/58 (82) 94 06/03/17 05:31 70 17 121/54 (76) 96 06/03/17 05:20 95 35 06/03/17 05:16 82 18 130/56 (80) 95 06/03/17 05:01 86 17 139/68 (91) 97 06/03/17 04:46 78 17 145/71 (95) 98 06/03/17 04:31 76 17 131/61 (84) 97 06/03/17 04:16 72 17 127/58 (81) 98 06/03/17 04:01 98.7 74 17 133/59 (83) 98 06/03/17 04:00 74 06/03/17 04:00 35 06/03/17 03:46 72 18 131/57 (81) 98 06/03/17 03:31 72 17 127/62 (83) 100 06/03/17 03:16 68 17 121/56 (77) 100 06/03/17 03:01 68 17 121/53 (75) 98 06/03/17 02:46 76 18 119/57 (77) 98 06/03/17 02:34 74 133/59 06/03/17 02:31 74 17 130/60 (83) 98 06/03/17 02:30 98 35 06/03/17 02:16 74 17 127/58 (81) 98 06/03/17 02:01 74 17 132/60 (84) 98 06/03/17 02:00 74 06/03/17 01:46 74 17 129/59 (82) 98 06/03/17 01:31 72 17 127/58 (81) 98 06/03/17 01:16 70 18 122/57 (78) 98 06/03/17 01:01 72 17 128/58 (81) 98 06/03/17 00:46 72 18 124/56 (78) 98 06/03/17 00:31 74 17 125/58 (80) 98 06/03/17 00:16 72 17 125/55 (78) 99 06/03/17 00:01 99.3 74 18 121/61 (81) 100 06/03/17 00:00 74 06/03/17 00:00 35 06/02/17 23:46 86 23 142/65 (90) 100 06/02/17 23:40 99 35 06/02/17 23:31 70 18 133/63 (86) 99 06/02/17 23:16 70 17 135/62 (86) 100 06/02/17 23:01 70 17 127/58 (81) 100 06/02/17 22:46 72 17 123/59 (80) 100 06/02/17 22:31 72 18 123/55 (77) 100 06/02/17 22:16 78 18 121/58 (79) 99 06/02/17 22:01 80 18 118/58 (78) 99 06/02/17 22:00 78 06/02/17 21:46 80 18 127/60 (82) 96 06/02/17 21:31 82 17 121/62 (81) 99 06/02/17 21:16 70 18 109/50 (69) 100 06/02/17 21:01 70 17 116/57 (76) 100 06/02/17 21:00 72 06/02/17 20:46 68 17 115/56 (75) 100 06/02/17 20:31 74 17 123/57 (79) 100 06/02/17 20:20 100 35 06/02/17 20:16 68 17 118/55 (76) 100 06/02/17 20:01 98.8 70 18 120/58 (78) 100 06/02/17 20:00 35 06/02/17 20:00 68 06/02/17 19:46 68 17 114/54 (74) 100 06/02/17 19:31 68 17 106/50 (68) 99 06/02/17 19:16 80 18 103/53 (70) 96 06/02/17 19:01 70 17 111/50 (70) 99 06/02/17 19:00 68 06/02/17 18:01 74 18 110/49 (69) 99 06/02/17 17:22 100 35 06/02/17 17:16 78 17 108/50 (69) 99 06/02/17 17:01 88 25 134/77 (96) 100 -: 06/03/17 0545 06/03/17 0545 Physical Exam Eyes Eye Exam: Pupils Equal Throat Throat Exam: Oral Mucosa [place] & Moist Neck Neck Exam: Neck Supple Pulmonary Resp Exam: Breath Sounds Equal, No Distress, Rhonchi, Decreased Bases, Diminished Breath Sounds, Poor Inspiratory Effort Cardiology CV Exam: Regular, Normal Sinus Rhythm Gastrointestinal/Abdomen GI Exam: Soft, Non-Tender, Bowel Sounds Present, Distended Extremeties Extremities Exam: Moderate Edema Neurologic Neuro Exam: Awake Psychiatric Psych Exam: Appropriate Responses Assessment/Plan Assessment Summary: MIRACLE/Acute Renal Failure, Hypertension, CKD Stage IV Problem List: (1) Chronic kidney disease (CKD) ICD Codes: N18.9 - Chronic kidney disease, unspecified (2) Oliguria ICD Codes: R34 - Anuria and oliguria (3) Diarrhea ICD Codes: R19.7 - Diarrhea, unspecified (4) Metabolic acidosis ICD Codes: E87.2 - Acidosis Status: Acute (5) Uremia ICD Codes: N19 - Unspecified kidney failure Status: Acute (6) Acute renal failure ICD Codes: N17.9 - Acute kidney failure, unspecified Status: Acute Plan Patient develop Resp. failure and intubated. . Started oin HD, tolerated well. The BP is now better. FiO2 35% HD yesterday 2 L, Next HD Monday Weaning as per CCM. Most likely will need prison HD. Save left arm for AVF. Dr. Lee to follow on Monday Problem Qualifiers (1) Chronic kidney disease (CKD): Qualified Codes: N18.5 - Chronic kidney disease, stage 5 (2) Acute renal failure: Qualified Codes: N17.9 - Acute kidney failure, unspecified Mike Saeed MD Jun 03, 2017 16:58
--- NOTE | 2017-06-03 18:04 | HHI.PR ---
Subjective Remarks 76 YOWF with VDRF,Ac renal Failure,DM, Met acidosis On Vent Sedated with Fentanyl and Diprivan No Fever Objective Vital Signs Vital Signs Date Time Temp Pulse Resp B/P (MAP) Pulse Ox O2 Delivery O2 Flow Rate FiO2 06/03/17 17:00 98.5 62 17 99 06/03/17 16:35 98 35 06/03/17 16:00 64 18 163/59 (93) 98 06/03/17 16:00 35 06/03/17 15:00 62 17 98 06/03/17 15:00 62 17 166/58 (94) 98 06/03/17 14:32 64 18 167/60 (95) 98 06/03/17 14:32 64 18 167/60 (95) 98 06/03/17 14:30 62 18 99 06/03/17 14:17 62 17 164/56 (92) 98 06/03/17 14:17 62 17 164/56 (92) 98 06/03/17 14:02 62 18 160/58 (92) 98 06/03/17 14:02 62 18 160/58 (92) 98 06/03/17 14:00 62 18 98 06/03/17 14:00 62 18 98 06/03/17 13:47 64 18 156/60 (92) 98 06/03/17 13:45 98 35 06/03/17 13:32 159/59 (92) 06/03/17 13:32 64 17 159/59 (92) 98 06/03/17 13:30 64 17 98 06/03/17 13:17 66 18 152/58 (89) 98 06/03/17 13:17 66 18 152/58 (89) 98 06/03/17 13:15 64 17 97 06/03/17 13:02 88 27 155/63 (93) 82 06/03/17 13:02 88 27 155/63 (93) 82 06/03/17 13:00 98.5 80 33 90 06/03/17 13:00 80 33 90 06/03/17 12:47 64 18 156/63 (94) 97 06/03/17 12:45 62 18 97 06/03/17 12:32 62 18 151/61 (91) 96 06/03/17 12:30 62 18 96 06/03/17 12:17 62 17 150/59 (89) 96 06/03/17 12:15 62 18 96 06/03/17 12:02 62 18 151/59 (89) 98 06/03/17 12:00 62 17 99 06/03/17 12:00 62 17 99 06/03/17 12:00 35 06/03/17 11:47 62 17 147/59 (88) 99 06/03/17 11:45 98.4 60 17 99 06/03/17 11:32 62 18 151/62 (91) 99 06/03/17 11:30 62 18 98 06/03/17 11:29 100 35 06/03/17 11:17 60 17 149/63 (91) 97 06/03/17 11:15 62 17 97 06/03/17 11:02 64 17 152/69 (96) 98 06/03/17 11:00 68 17 98 06/03/17 10:47 60 18 142/58 (86) 97 06/03/17 10:45 60 17 97 06/03/17 10:32 60 18 132/56 (81) 97 06/03/17 10:30 60 18 97 06/03/17 10:17 62 17 146/55 (85) 98 06/03/17 10:15 62 17 98 06/03/17 10:02 66 18 135/54 (81) 98 06/03/17 10:00 66 17 98 06/03/17 09:47 68 17 148/59 (88) 99 06/03/17 09:45 68 17 99 06/03/17 09:32 74 18 147/61 (89) 98 06/03/17 09:30 74 18 97 06/03/17 09:26 99 142/55 06/03/17 09:17 70 17 142/55 (84) 99 06/03/17 09:15 70 18 99 06/03/17 09:02 72 17 148/58 (88) 99 06/03/17 09:00 72 18 99 06/03/17 08:50 40 06/03/17 08:47 84 17 149/58 (88) 99 06/03/17 08:45 70 17 98 06/03/17 08:32 74 18 146/59 (88) 98 06/03/17 08:30 98.6 74 18 98 06/03/17 08:17 80 17 143/56 (85) 06/03/17 08:15 86 18 06/03/17 08:05 97 35 06/03/17 08:02 104 23 175/72 (106) 97 06/03/17 08:00 104 20 97 06/03/17 08:00 35 06/03/17 07:47 102 15 195/81 (119) 99 06/03/17 07:45 106 16 99 06/03/17 07:39 96 40 06/03/17 07:31 86 17 177/78 (111) 97 06/03/17 07:30 98.6 88 18 97 06/03/17 07:16 76 18 152/73 (99) 98 06/03/17 07:01 84 19 138/66 (90) 96 06/03/17 06:46 72 17 134/58 (83) 98 06/03/17 06:31 72 17 138/60 (86) 96 06/03/17 06:16 70 17 121/56 (77) 96 06/03/17 06:01 70 17 117/55 (75) 95 06/03/17 06:00 96 06/03/17 05:46 76 17 130/58 (82) 94 06/03/17 05:31 70 17 121/54 (76) 96 06/03/17 05:20 95 35 06/03/17 05:16 82 18 130/56 (80) 95 06/03/17 05:01 86 17 139/68 (91) 97 06/03/17 04:46 78 17 145/71 (95) 98 06/03/17 04:31 76 17 131/61 (84) 97 06/03/17 04:16 72 17 127/58 (81) 98 06/03/17 04:01 98.7 74 17 133/59 (83) 98 06/03/17 04:00 74 06/03/17 04:00 35 06/03/17 03:46 72 18 131/57 (81) 98 06/03/17 03:31 72 17 127/62 (83) 100 06/03/17 03:16 68 17 121/56 (77) 100 06/03/17 03:01 68 17 121/53 (75) 98 06/03/17 02:46 76 18 119/57 (77) 98 06/03/17 02:34 74 133/59 06/03/17 02:31 74 17 130/60 (83) 98 06/03/17 02:30 98 35 06/03/17 02:16 74 17 127/58 (81) 98 06/03/17 02:01 74 17 132/60 (84) 98 06/03/17 02:00 74 06/03/17 01:46 74 17 129/59 (82) 98 06/03/17 01:31 72 17 127/58 (81) 98 06/03/17 01:16 70 18 122/57 (78) 98 06/03/17 01:01 72 17 128/58 (81) 98 06/03/17 00:46 72 18 124/56 (78) 98 06/03/17 00:31 74 17 125/58 (80) 98 06/03/17 00:16 72 17 125/55 (78) 99 06/03/17 00:01 99.3 74 18 121/61 (81) 100 06/03/17 00:00 74 06/03/17 00:00 35 06/02/17 23:46 86 23 142/65 (90) 100 06/02/17 23:40 99 35 06/02/17 23:31 70 18 133/63 (86) 99 06/02/17 23:16 70 17 135/62 (86) 100 06/02/17 23:01 70 17 127/58 (81) 100 06/02/17 22:46 72 17 123/59 (80) 100 06/02/17 22:31 72 18 123/55 (77) 100 06/02/17 22:16 78 18 121/58 (79) 99 06/02/17 22:01 80 18 118/58 (78) 99 06/02/17 22:00 78 06/02/17 21:46 80 18 127/60 (82) 96 06/02/17 21:31 82 17 121/62 (81) 99 06/02/17 21:16 70 18 109/50 (69) 100 06/02/17 21:01 70 17 116/57 (76) 100 06/02/17 21:00 72 06/02/17 20:46 68 17 115/56 (75) 100 06/02/17 20:31 74 17 123/57 (79) 100 06/02/17 20:20 100 35 06/02/17 20:16 68 17 118/55 (76) 100 06/02/17 20:01 98.8 70 18 120/58 (78) 100 06/02/17 20:00 35 06/02/17 20:00 68 06/02/17 19:46 68 17 114/54 (74) 100 06/02/17 19:31 68 17 106/50 (68) 99 06/02/17 19:16 80 18 103/53 (70) 96 06/02/17 19:01 70 17 111/50 (70) 99 06/02/17 19:00 68 I/O 06/02/17 06/02/17 06/02/17 06/03/17 06/03/17 06/03/17 07:00 15:00 23:00 07:00 15:00 23:00 Intake Total 2219 ml 314 ml 430 ml 650 ml Output Total 50 ml 2000 ml 200 ml 250 ml 25 ml Balance 2169 ml -1686 ml 230 ml 400 ml -25 ml IV Total 2219 ml 314 ml 430 ml 650 ml Output Urine Total 50 ml 50 ml 50 ml 25 ml Gastric Drainage Total 150 ml 200 ml Hemodialysis 2000 ml Result Diagram: 06/03/17 0545 06/03/17 0545 Objective Remarks GENERAL: WBWN WF, on Vent SKIN: Warm and dry. HEAD: Normocephalic. EYES: No scleral icterus. No injection or drainage. NECK: Supple, trachea midline. No JVD or lymphadenopathy. CARDIOVASCULAR: Regular rate and rhythm without murmurs, gallops, or rubs. RESPIRATORY: Breath sounds equal bilaterally. No accessory muscle use. GASTROINTESTINAL: Abdomen soft, non-tender, nondistended. MUSCULOSKELETAL: No cyanosis, or edema. BACK: Nontender without obvious deformity. No CVA tenderness. A/P Assessment and Plan VDRF COPD Ac renal Failure Metabolic acidosis DM Nicotine use PLAN: Vent support Sedation with Fentanyl and Diprivan [id number] nebs Willtry to wean after HD in AM. Jac Hammonds MD Jun 03, 2017 18:04
[2017-06-03] MEDS: ATORVASTATIN 40 MG TAB PO SCH (20:01)
[2017-06-03] MEDS: fentaNYL DRIP 250 ML IV PRN (22:53)
[2017-06-04] VITALS (80 sets, daily range): BP systolic 68–175; BP diastolic 43–98; PULSE 60–112; RESP 7–31; TEMP 97.9–98.9; O2SAT 65–100
[2017-06-04] MEDS: RESP: ALBUTEROL 2.5 MG/IPRATROPIUM 0.5 MG NEB (SCH) NEB ×7 (00:15→23:02)
[2017-06-04] MEDS: fentaNYL DRIP 250 ML IV PRN (01:02)
[2017-06-04] MEDS: INSULIN NovoLIN REGULAR SUPPLEMENTAL SCALE SQ SCH ×6 (01:10→20:47)
[2017-06-04] MEDS: PIPERACIL-TAZO 2.25 GM PREMIX 50 ML IV SCH (01:11)
[2017-06-04] MEDS: CHLORHEXIDINE GLUCONATE 2 % 1 PACK (2 CLOTHS) TOP SCH (04:00)
[2017-06-04 05:49] LABS: AUTOMATED NEUTROPHIL # 7.9 TH/MM3 (1.8-7.7); BASOPHIL # 0.2 TH/MM3 (0-0.2); BASOPHIL % 1.9 % (0.0-2.0); HEMATOCRIT 24.5 % (35.0-46.0); LYMPH % 6.8 % (9.0-44.0); LYMPHOCYTE # 0.6 TH/MM3 (1.0-4.8); MEAN CELL VOLUME 78.8 FL (80.0-100.0); MEAN CORPUSCULAR HEMOGLOBIN 26.1 PG (27.0-34.0); MEAN CORPUSCULAR HGB CONC 33.2 % (32.0-36.0); MONO % 6.9 % (0.0-8.0); NEUT % 84.4 % (16.0-70.0); PLATELET COUNT 173 TH/MM3 (150-450); RED CELL DISTRIBUTION WIDTH 17.8 % (11.6-17.2); WHITE BLOOD COUNT 9.3 TH/MM3 (4.0-11.0)
[2017-06-04 05:51] LABS: HEMO FLAGS DIFF FINAL
[2017-06-04 05:57] LABS: POTASSIUM 3.9 MEQ/L (3.5-5.1)
[2017-06-04 06:52] LABS: BICARBONATE 22.4 MEQ/L (21.0-32.0)
[2017-06-04] MEDS: HEPARIN SODIUM - SQ 10,000 UNITS/ML VIAL SQ SCH ×3 (06:53→22:27)
[2017-06-04] MEDS ORDERED: ALPRAZolam 0.25 MG TAB PO PRN (07:15)
[2017-06-04 07:22] LABS: CALCIUM-PROTEIN CORRECTED 7.6 MG/DL (8.5-10.1)
--- NOTE | 2017-06-04 07:30 | HHI.CCPN ---
Subjective Remarks/Hospital Course The patient is a 76-year-old female with past medical history of hypertension, hyperlipidemia, diabetes mellitus, COPD, chronic kidney disease, who was admitted to [facility] yesterday under hospitalist service for acute renal failure and COPD exacerbation. On arrival the patient had BUN of 99 with a creatinine of 14 and potassium level 4.8. Chest x-ray on admission showed no evidence of any acute cardiopulmonary disease. She was seen by Dr. Lee from nephrology service and placed on bicarb drip. A renal ultrasound was obtained which showed no evidence of hydronephrosis. Her renal function continued to worsen. A Halicat was called this morning for respiratory distress. She was subsequently transferred to ICU and was intubated by Dr. Davila, the ED physician. ABG post-intubation showed severe hypercapnic and metabolic acidosis with a pH of 6.89, CO2 63, bicarb 12, pAO2 211, saturation 96 % on PRVC mode rate of 14, tidal volume 500. I time one, PEEP five and FIO2 60% . Chest x-ray post-intubation showed ET tube above the brayan and bilateral interstitial pattern. Her laboratory data this morning is significant for hyperkalemia with potassium level 6.1, BUN of 118, creatinine 14.0. When seen the patient is intubated and sedated with Diprivan drip. Her current blood pressure is 179/90 with a pulse of 117. 06/02 Patient s/p HD 06/01 with 2L fluid removal, 2 L removed today as well. . Patient remains intubated on low dose Diprivan but awake, alert and follows commands. Afebrile. She went into Afib with RVR overnight and started on Amio drip. 06/03 Converted to sinus with PAC's on amiodarone. Remains on mechanical ventilation. UOP 50 ml over last 24 hours. Following commands on sedation, will do SBT. Plan for HD today per discussion with ROUTER MACHINE OPERATOR. Subjective: 06/04 CPAP trial terminated yesterday after patient became tachycardic, anxious. HD was not performed yesterday but plan for today per nephrology. Will use precedex to facilitate comfort with CPAP. UOP 150. Objective Vital Signs Date Time Temp Pulse Resp B/P (MAP) Pulse Ox O2 Delivery O2 Flow Rate FiO2 06/04/17 07:00 98.7 68 20 120/54 (76) 98 06/04/17 04:08 35 05/31/17 19:40 Nasal Cannula 2.00 Intake and Output 06/04/17 06/04/17 06/05/17 08:00 16:00 00:00 Intake Total 870 ml Output Total 25 ml Balance 845 ml Result Diagram: 06/04/17 0542 06/04/17 0542 Imaging Last Impressions Chest X-Ray 06/01/17 0606 Signed Impressions: Service Date/Time: May 06:21 - CONCLUSION: 1. Adequate placement of endotracheal tube. Jamie Arellano MD Renal Ultrasound 05/31/17 0000 Signed Impressions: Service Date/Time: Wednesday, May 31, 2017 08:54 - CONCLUSION: 1. Abnormal appearance to the left kidney with diminutive size and poor delineation of the parenchymal architecture. 2. No gross abnormality seen in the right kidney. Aramis Scott MD Objective Remarks GENERAL: Patient is 76 yo intubated, now off continuous sedation. SKIN: Warm and dry. HEAD: Normocephalic. EYES: No scleral icterus. No injection or drainage. NECK: Supple, trachea midline. No JVD or lymphadenopathy. CARDIOVASCULAR: Regular rate and rhythm without murmurs, gallops, or rubs. RESPIRATORY: Coarse bibasilar breath sounds. GASTROINTESTINAL: Abdomen soft, non-tender, nondistended. MUSCULOSKELETAL: No cyanosis, 1+ edema all extremities. NEURO: Intubated, moves all extremities spontaneously and follows commands, makes eye contact. A/P Assessment and Plan 1. Acute hypoxemic and hypercapnic respiratory failure. 2. Acute on chronic kidney disease. 3. s/p Hyperkalemia and hyperphosphatemia. 4. PAF 5. Hyperglycemia. 6. Anemia. 7. COPD. 8. Hypertension. 9. Hyperlipidemia. 10. Morbid obesity. Plan Neuro: Anxiety Has been on Diprivan infusion for sedation, now on hold. Fentanyl drip for analgosedation, now on hold. Precedex as needed for comfort while on CPAP Xanax 0.25 mg by mouth every 8 hours as needed for anxiety Pulm: Acute hypercapnic respiratory failure Tobacco abuse Continue with vent support and maintain sats >92%. SBT daily and extubate when tolerated. CXR 04/03 still with some pulmonary edema. Bronchodilators, D/c solumedrol Pulm following, Dr. Hammonds CV: Hypertension Hyperlipidemia Paroxysmal atrial fibrillation Monitor HR and BP and maintain MAP>65 mmHg. Converted to sinus rhythm after amiodarone infusion. We'll DC amiodarone and monitor. Normotensive currently on sedation. Home enalapril 20 bid on hold. Consider metoprolol if antihypertensive needed. Echo showed 50-55% Continue atorvastatin 80 mg by mouth daily at bedtime : CKD Stage IV, now on HD and probable ESRD with group home dialysis. Diabetic nephropathy Monitor renal function, I&O's and avoid nephrotoxins. HD started 06/01 with 2 KG removal, 06/02 with 2 KG removal. Plan for HD today. GI: Diarrhea present on admission On Pepcid 10mg IV Q12 for GI prophylaxis. Tolerating Suplena, now on hold for CPAP trial. Followup nutrition recs if not extubating. C diff negative. ID: Acute community acquired pneumonia Has been on Zosyn since 06/01 #4. Now sputum culture reflects pansensitive klebsiella. We'll continue Rocephin for total 8 day antibiotic course.. sputum culture 06/01: Klebsiella Afebrile no leukocytosis. Endo: Sl. Glucose is above target. Detemir 10 units subcut q12 hours. Increased to medium dose sliding scale q4 hours. Heme: Monitor CBC. GI prophylaxis with Protonix 40 mg daily and DVT prophylaxis with SCDs and heparin subcut. Lines: Peripheral IV's, Right IJ vascath placed 06/01 #4. Discussed with bedside RN. CPAP not tolerated this morning. Reattempted post-HD and terminated due to tachycardia, tachypnea and desats . Level 3 Bonny Hurtado MD Jun 04, 2017 07:29
[2017-06-04] MEDS: DEXMEDETOMIDINE INJ 200 MCG in SODIUM CHLORIDE 0.9% INJ 50 ML IV PRN ×3 (08:03→22:28)
[2017-06-04] MEDS: methylPREDNISolone SOD SUCC 40 MG/1 ML VIAL IV PUSH SCH ×2 (08:24→20:41)
[2017-06-04] MEDS: DOCUSATE SODIUM 50 MG/SENNA 8.6 MG TAB PO SCH ×2 (08:25→20:40)
[2017-06-04] MEDS: AMIODARONE 200 MG TAB PO SCH ×2 (08:25→20:40)
[2017-06-04] MEDS: cefTRIAXone INJ 1,000 MG in SODIUM CHLORIDE 0.9% INJ 100 ML IV SCH ×2 (08:25→20:37)
[2017-06-04] MEDS: INSULIN DETEMIR 100 UNITS/ML VIAL SQ SCH ×2 (08:26→20:40)
[2017-06-04] MEDS: CHLORHEXIDINE 0.12% (ORAL KIT) 15 ML CUP MT SCH ×2 (08:28→20:40)
[2017-06-04] MEDS: SODIUM CHLORIDE 0.9% FLUSH 10 ML FLUSH IV FLUSH SCH ×2 (08:30→20:42)
[2017-06-04] MEDS: FAMOTIDINE 20 MG/2 ML VIAL IV PUSH SCH ×2 (09:27→20:41)
[2017-06-04] MEDS: ALBUMIN 25% INJ 100 ML IV PRN ×2 (11:08→12:36)
[2017-06-04] MEDS: SODIUM CHLOR 0.9% 1000 ML INJ 1,000 ML OTHER PRN (11:09)
[2017-06-04] MEDS: SODIUM CHLORIDE 0.9% FLUSH 10 ML FLUSH IV FLUSH PRN (11:09)
[2017-06-04] MEDS: GENTAMICIN SULFATE (DIALYSIS USE ONLY) 20 MG/2 ML VIAL OTHER PRN (11:10)
[2017-06-04] MEDS: HEPARIN SODIUM - IV 10,000 UNITS/10 ML VIAL PRN (11:13)
--- NOTE | 2017-06-04 17:26 | HHI.PR ---
Subjective Remarks 76 YOWF with VDRF,Ac renal Failure,DM, Met acidosis On Vent Sedated with Precedex Off Fentanyl had HD Did't tolerate CPAP No Fever Objective Vital Signs Vital Signs Date Time Temp Pulse Resp B/P (MAP) Pulse Ox O2 Delivery O2 Flow Rate FiO2 06/04/17 16:49 40 06/04/17 16:35 97 40 06/04/17 16:00 98.5 86 23 95 06/04/17 16:00 35 06/04/17 15:31 80 23 140/60 (86) 96 06/04/17 15:30 82 23 96 06/04/17 15:01 96 22 175/65 (101) 94 06/04/17 15:01 96 22 175/65 (101) 94 06/04/17 15:00 94 26 93 06/04/17 14:31 66 17 113/51 (71) 97 06/04/17 14:30 66 17 97 06/04/17 14:01 66 18 101/51 (68) 96 06/04/17 13:44 64 17 99/49 (66) 96 06/04/17 13:43 64 18 101/48 (65) 96 06/04/17 13:40 96 35 06/04/17 13:30 68 18 75/45 (55) 96 06/04/17 13:15 68 18 95/50 (65) 96 06/04/17 13:00 68 18 90/49 (63) 96 06/04/17 12:45 66 18 92/48 (63) 96 06/04/17 12:35 68 18 79/46 (57) 95 06/04/17 12:35 68 18 79/46 (57) 95 06/04/17 12:30 98.2 66 17 68/43 (51) 96 06/04/17 12:30 66 17 68/43 (51) 96 06/04/17 12:24 68 18 76/44 (55) 96 06/04/17 12:18 68 17 70/43 (52) 96 06/04/17 12:17 68 18 76/44 (55) 96 06/04/17 12:15 66 18 76/45 (55) 96 06/04/17 12:00 68 18 96/49 (65) 96 06/04/17 12:00 35 06/04/17 11:45 62 18 94/48 (63) 100 06/04/17 11:30 60 17 103/52 (69) 100 06/04/17 11:22 97 35 06/04/17 11:15 64 18 90/49 (63) 97 06/04/17 11:15 64 18 90/49 (63) 97 06/04/17 11:00 64 18 83/45 (58) 97 06/04/17 10:45 62 17 90/48 (62) 98 06/04/17 10:30 64 17 92/45 (61) 97 06/04/17 10:15 72 17 96 06/04/17 10:00 72 17 96/50 (65) 96 06/04/17 09:45 90 15 96 06/04/17 09:30 86 18 96 06/04/17 09:30 86 18 96 06/04/17 09:15 106 20 97 06/04/17 09:10 35 06/04/17 09:10 98 35 06/04/17 09:00 94 25 169/83 (111) 65 06/04/17 08:45 96 40 06/04/17 08:15 40 06/04/17 08:15 84 7 100 06/04/17 08:15 99 40 06/04/17 08:00 86 17 100 06/04/17 08:00 35 06/04/17 07:50 100 35 06/04/17 07:03 86 06/04/17 07:00 98.7 68 20 120/54 (76) 98 06/04/17 06:00 62 18 101/45 (63) 97 06/04/17 06:00 62 18 97 06/04/17 05:05 70 06/04/17 05:00 70 18 115/47 (69) 99 06/04/17 04:08 98 35 06/04/17 04:01 35 06/04/17 04:00 60 17 116/53 (74) 98 06/04/17 04:00 60 17 98 06/04/17 03:08 65 06/04/17 03:00 64 17 98 06/04/17 03:00 64 17 114/51 (72) 98 06/04/17 02:32 62 105/45 06/04/17 02:00 62 17 105/45 (65) 98 06/04/17 02:00 62 17 105/45 (65) 98 06/04/17 01:00 35 06/04/17 01:00 64 17 113/53 (73) 98 06/04/17 01:00 66 06/04/17 01:00 64 17 113/53 (73) 98 06/04/17 01:00 64 17 98 06/04/17 00:15 98 35 06/04/17 00:00 64 18 98 06/03/17 23:02 65 06/03/17 23:00 62 17 133/61 (85) 98 06/03/17 22:10 99 35 06/03/17 22:00 64 17 122/56 (78) 99 06/03/17 20:39 35 06/03/17 20:05 99.1 72 18 141/63 (89) 100 06/03/17 19:50 99 35 06/03/17 18:00 72 18 97 I/O 06/03/17 06/03/17 06/03/17 06/04/17 06/04/17 06/04/17 07:00 15:00 23:00 07:00 15:00 23:00 Intake Total 650 ml 870 ml Output Total 250 ml 25 ml 100 ml 25 ml 4300 ml Balance 400 ml -25 ml -100 ml 845 ml -4300 ml IV Total 650 ml 350 ml Tube Feeding 520 ml Output Urine Total 50 ml 25 ml 100 ml 25 ml Gastric Drainage Total 200 ml Hemodialysis 4300 ml Result Diagram: 06/04/17 0542 06/04/17 0542 Objective Remarks GENERAL: WBWN WF, on Vent SKIN: Warm and dry. HEAD: Normocephalic. EYES: No scleral icterus. No injection or drainage. NECK: Supple, trachea midline. No JVD or lymphadenopathy. CARDIOVASCULAR: Regular rate and rhythm without murmurs, gallops, or rubs. RESPIRATORY: Breath sounds equal bilaterally. No accessory muscle use. GASTROINTESTINAL: Abdomen soft, non-tender, nondistended. MUSCULOSKELETAL: No cyanosis, or edema. BACK: Nontender without obvious deformity. No CVA tenderness. A/P Assessment and Plan VDRF COPD Ac renal Failure Metabolic acidosis DM Nicotine use PLAN: Vent support Sedation with Precedex [id number] nebs CPAP trial in AM. Jac Hammonds MD Jun 04, 2017 17:26
[2017-06-04 17:31] LABS: C. DIFF EPI 027 PRESUMPTIVE NEGATIVE (NEGATIVE)
--- NOTE | 2017-06-04 18:45 | HHI.NPPN ---
Subjective History of Present Illness 76-year-old female with past medical history of hypertension, diabetes mellitus, hyperlipidemia, ischemic heart disease, chronic kidney disease, chronic obstructive pulmonary disease was admitted because of generalized weakness, decreased urine output. I he was called to see the patient for elevated BUN and creatinine. The patient is known to me from before. She has been following with me in the office and last time I saw her was on May 04 and at that time her creatinine was 2.2 with given the GFR of 19-20 she had advanced stage IV chronic kidney disease most likely because of diabetic nephropathy. Additional Remarks Patient is intubated and now awake, now on Dialysis. Review of Systems General General Remarks Intubated and sedated. Objective Data Data 06/04/17 06/05/17 19:00 07:00 Intake Total 1017 ml Output Total 4348 ml Balance -3331 ml IV Total 217 ml Tube Feeding 400 ml TPN/PPN 400 ml Output Urine Total 45 ml Stool Total 3 ml Hemodialysis 4300 ml Vital Signs Date Time Temp Pulse Resp B/P (MAP) Pulse Ox O2 Delivery O2 Flow Rate FiO2 06/04/17 18:31 84 22 149/73 (98) 97 06/04/17 18:31 97.9 84 22 149/73 (98) 97 06/04/17 18:30 86 19 96 06/04/17 18:30 86 19 96 06/04/17 18:15 70 27 96 06/04/17 18:15 70 27 96 06/04/17 18:01 76 31 130/54 (79) 95 06/04/17 18:01 76 31 130/54 (79) 95 06/04/17 18:00 74 26 95 06/04/17 18:00 74 26 95 06/04/17 17:25 97 35 06/04/17 17:15 90 22 98 06/04/17 17:01 98 22 148/62 (90) 97 06/04/17 17:00 92 18 97 06/04/17 16:49 40 06/04/17 16:35 97 40 06/04/17 16:00 98.5 86 23 95 06/04/17 16:00 35 06/04/17 15:31 80 23 140/60 (86) 96 06/04/17 15:30 82 23 96 06/04/17 15:01 96 22 175/65 (101) 94 06/04/17 15:01 96 22 175/65 (101) 94 06/04/17 15:00 94 26 93 06/04/17 14:31 66 17 113/51 (71) 97 06/04/17 14:30 66 17 97 06/04/17 14:01 66 18 101/51 (68) 96 06/04/17 13:44 64 17 99/49 (66) 96 06/04/17 13:43 64 18 101/48 (65) 96 06/04/17 13:40 96 35 06/04/17 13:30 68 18 75/45 (55) 96 06/04/17 13:15 68 18 95/50 (65) 96 06/04/17 13:00 68 18 90/49 (63) 96 06/04/17 12:45 66 18 92/48 (63) 96 06/04/17 12:35 68 18 79/46 (57) 95 06/04/17 12:35 68 18 79/46 (57) 95 06/04/17 12:30 98.2 66 17 68/43 (51) 96 06/04/17 12:30 66 17 68/43 (51) 96 06/04/17 12:24 68 18 76/44 (55) 96 06/04/17 12:18 68 17 70/43 (52) 96 06/04/17 12:17 68 18 76/44 (55) 96 06/04/17 12:15 66 18 76/45 (55) 96 06/04/17 12:00 68 18 96/49 (65) 96 06/04/17 12:00 35 06/04/17 11:45 62 18 94/48 (63) 100 06/04/17 11:30 60 17 103/52 (69) 100 06/04/17 11:22 97 35 06/04/17 11:15 64 18 90/49 (63) 97 06/04/17 11:15 64 18 90/49 (63) 97 06/04/17 11:00 64 18 83/45 (58) 97 06/04/17 10:45 62 17 90/48 (62) 98 06/04/17 10:30 64 17 92/45 (61) 97 06/04/17 10:15 72 17 96 06/04/17 10:00 72 17 96/50 (65) 96 06/04/17 09:45 90 15 96 06/04/17 09:30 86 18 96 06/04/17 09:30 86 18 96 06/04/17 09:15 106 20 97 06/04/17 09:10 35 06/04/17 09:10 98 35 06/04/17 09:00 94 25 169/83 (111) 65 06/04/17 08:45 96 40 06/04/17 08:15 40 06/04/17 08:15 84 7 100 06/04/17 08:15 99 40 06/04/17 08:00 86 17 100 06/04/17 08:00 35 06/04/17 07:50 100 35 06/04/17 07:03 86 06/04/17 07:00 98.7 68 20 120/54 (76) 98 06/04/17 06:00 62 18 101/45 (63) 97 06/04/17 06:00 62 18 97 06/04/17 05:05 70 06/04/17 05:00 70 18 115/47 (69) 99 06/04/17 04:08 98 35 06/04/17 04:01 35 06/04/17 04:00 60 17 116/53 (74) 98 06/04/17 04:00 60 17 98 06/04/17 03:08 65 06/04/17 03:00 64 17 98 06/04/17 03:00 64 17 114/51 (72) 98 06/04/17 02:32 62 105/45 06/04/17 02:00 62 17 105/45 (65) 98 06/04/17 02:00 62 17 105/45 (65) 98 06/04/17 01:00 35 06/04/17 01:00 64 17 113/53 (73) 98 06/04/17 01:00 66 06/04/17 01:00 64 17 113/53 (73) 98 06/04/17 01:00 64 17 98 06/04/17 00:15 98 35 06/04/17 00:00 64 18 98 06/03/17 23:02 65 06/03/17 23:00 62 17 133/61 (85) 98 06/03/17 22:10 99 35 06/03/17 22:00 64 17 122/56 (78) 99 06/03/17 20:39 35 06/03/17 20:05 99.1 72 18 141/63 (89) 100 06/03/17 19:50 99 35 -: 06/04/17 0542 06/04/17 0542 Physical Exam Eyes Eye Exam: Pupils Equal Throat Throat Exam: Oral Mucosa [place] & Moist Neck Neck Exam: Neck Supple Pulmonary Resp Exam: Breath Sounds Equal, No Distress, Rhonchi, Decreased Bases, Diminished Breath Sounds, Poor Inspiratory Effort Cardiology CV Exam: Regular, Normal Sinus Rhythm Gastrointestinal/Abdomen GI Exam: Soft, Non-Tender, Bowel Sounds Present, Distended Extremeties Extremities Exam: Moderate Edema Neurologic Neuro Exam: Awake Psychiatric Psych Exam: Appropriate Responses Assessment/Plan Assessment Summary: [place]/Acute Renal Failure, Hypertension, CKD Stage IV Problem List: (1) Chronic kidney disease (CKD) ICD Codes: N18.9 - Chronic kidney disease, unspecified (2) Oliguria ICD Codes: R34 - Anuria and oliguria (3) Diarrhea ICD Codes: R19.7 - Diarrhea, unspecified (4) Metabolic acidosis ICD Codes: E87.2 - Acidosis Status: Acute (5) Uremia ICD Codes: N19 - Unspecified kidney failure Status: Acute (6) Acute renal failure ICD Codes: N17.9 - Acute kidney failure, unspecified Status: Acute Plan Patient develop Resp. failure and intubated. . Started oin HD, tolerated well. The BP is now better. FiO2 35% HD today 4.3 L, Next HD Monday Weaning as per CCM. Most likely will need prison HD. Save left arm for AVF. OK to remove [place] catheter as Anuric Dr. Lee to follow on Monday Problem Qualifiers (1) Chronic kidney disease (CKD): Qualified Codes: N18.5 - Chronic kidney disease, stage 5 (2) Acute renal failure: Qualified Codes: N17.9 - Acute kidney failure, unspecified Mike Saeed MD Jun 04, 2017 18:45
[2017-06-04] MEDS: ATORVASTATIN 40 MG TAB PO SCH (20:40)
[2017-06-05] VITALS (55 sets, daily range): BP systolic 115–228; BP diastolic 46–120; PULSE 60–140; RESP 11–38; TEMP 97.8–99.3; O2SAT 78–100
[2017-06-05] MEDS: ONDANSETRON HCL 4 MG/2 ML VIAL IV PUSH PRN ×2 (00:31→20:18)
[2017-06-05] MEDS: INSULIN NovoLIN REGULAR SUPPLEMENTAL SCALE SQ SCH ×6 (00:37→20:00)
[2017-06-05] MEDS: DEXMEDETOMIDINE INJ 200 MCG in SODIUM CHLORIDE 0.9% INJ 50 ML IV PRN ×4 (03:41→22:30)
[2017-06-05] MEDS: fentaNYL DRIP 250 ML IV PRN (03:42)
[2017-06-05] MEDS: CHLORHEXIDINE GLUCONATE 2 % 1 PACK (2 CLOTHS) TOP SCH (04:00)
[2017-06-05] MEDS: RESP: ALBUTEROL 2.5 MG/IPRATROPIUM 0.5 MG NEB (SCH) NEB ×4 (04:04→23:26)
[2017-06-05 04:40] LABS: AUTOMATED NEUTROPHIL # 11.2 TH/MM3 (1.8-7.7); BASOPHIL # 0.2 TH/MM3 (0-0.2); BASOPHIL % 1.6 % (0.0-2.0); EOSINOPHIL % 0.2 % (0.0-4.0); HEMATOCRIT 27.9 % (35.0-46.0); LYMPH % 3.2 % (9.0-44.0); LYMPHOCYTE # 0.4 TH/MM3 (1.0-4.8); MEAN CELL VOLUME 81.3 FL (80.0-100.0); MEAN CORPUSCULAR HEMOGLOBIN 25.8 PG (27.0-34.0); MEAN CORPUSCULAR HGB CONC 31.8 % (32.0-36.0); MONO % 4.2 % (0.0-8.0); NEUT % 90.8 % (16.0-70.0); PLATELET COUNT 184 TH/MM3 (150-450); RED BLOOD COUNT 3.43 MIL/MM3 (4.00-5.30); RED CELL DISTRIBUTION WIDTH 18.3 % (11.6-17.2); WHITE BLOOD COUNT 12.3 TH/MM3 (4.0-11.0)
[2017-06-05 04:47] LABS: POTASSIUM 3.7 MEQ/L (3.5-5.1)
[2017-06-05 05:37] LABS: HEMO FLAGS AUTO DIFF
[2017-06-05] MEDS: HEPARIN SODIUM - SQ 10,000 UNITS/ML VIAL SQ SCH ×4 (05:43→22:38)
[2017-06-05 05:46] LABS: BICARBONATE 25.4 MEQ/L (21.0-32.0)
--- NOTE | 2017-06-05 06:04 | RADRPT ---
EXAM DATE/TIME: 06/05/2017 05:48 [facility] COMPARISON: CHEST SINGLE AP, June 03, 2017, 5:46. INDICATIONS : Shortness of breath. MEDICAL HISTORY : Chronic obstructive pulmonary disease. Hypercholesterolemia. Hypertension. Stage IV kidney diseas e. Fatty liver, Diabetes SURGICAL HISTORY : Umbilical hernia repair. Cholecystectomy. Hysterectomy. Appendectomy.Right knee replacement.Bilateral rotator cuff repair ENCOUNTER: Subsequent ACUITY: 1 week PAIN SCORE: Non-responsive. LOCATION: Bilateral chest FINDINGS: Endotracheal tube, nasogastric tube and right neck central line are satisfactory in position. There i s persistent hazy bilateral perihilar and basilar parenchymal opacity. Cardiac contours are grossly s table. CONCLUSION: No significant change Christ Feldman MD on June 05, 2017 at 6:02 Board Certified Radiologist. This report was verified electronically.
[2017-06-05 06:29] LABS: SCAN/DIFF AUTO DIFF CONFIRMED
[2017-06-05] MEDS: CHLORHEXIDINE 0.12% (ORAL KIT) 15 ML CUP MT SCH ×2 (08:00→20:00)
[2017-06-05] MEDS: INSULIN DETEMIR 100 UNITS/ML VIAL SQ SCH ×2 (08:11→20:05)
[2017-06-05] MEDS: SODIUM CHLORIDE 0.9% FLUSH 10 ML FLUSH IV FLUSH SCH ×2 (08:12→20:07)
[2017-06-05] MEDS: cefTRIAXone INJ 1,000 MG in SODIUM CHLORIDE 0.9% INJ 100 ML IV SCH ×2 (08:12→20:08)
[2017-06-05] MEDS: FAMOTIDINE 20 MG/2 ML VIAL IV PUSH SCH ×2 (08:12→20:18)
[2017-06-05] MEDS: DOCUSATE SODIUM 50 MG/SENNA 8.6 MG TAB PO SCH ×2 (08:13→20:05)
[2017-06-05 10:15] LABS: BLOOD GAS BASE EXCESS 1.5 mmol/L (-2-2); BLOOD GAS CARBOXYHEMOGLOBIN 1.3 % (0-4); BLOOD GAS HCO3 26 mmol/L (22-26); BLOOD GAS METHEMOGLOBIN 1.5 % (0-2); BLOOD GAS O2 HGB SATURATION 95 % (90-100); BLOOD GAS PCO2 46 mmHg (38-42); BLOOD GAS PO2 95 mmHg (61-120); BLOOD GAS TOTAL HGB 8.9 G/DL (12.0-16.0)
[2017-06-05 10:16] LABS: CRITICAL VALUE NO; DRAW SITE RT RADIAL; FIO2 35 %; NUMBER OF ARTERIAL PUNCTURES 1; OXYGEN DEVICE VENTILATOR; STAT NO; ULNAR PULSE PRESENT; VENT SETTINGS CPAP/5PEEP/5PS
[2017-06-05] MEDS: RESP: ALBUTEROL 2.5 MG/IPRATROPIUM 0.5 MG NEB (PRN) NEB ×2 (11:02→19:28)
[2017-06-05] MEDS: EPOETIN ALFA 10,000 UNITS/ML VIAL IV PUSH PRN (11:17)
[2017-06-05] MEDS: HEPARIN SODIUM - IV 10,000 UNITS/10 ML VIAL PRN (11:17)
[2017-06-05] MEDS: ALBUMIN 25% INJ 100 ML IV PRN (11:17)
[2017-06-05] MEDS: GENTAMICIN SULFATE (DIALYSIS USE ONLY) 20 MG/2 ML VIAL OTHER PRN (11:17)
[2017-06-05] MEDS: SODIUM CHLOR 0.9% 1000 ML INJ 1,000 ML OTHER PRN (11:17)
--- NOTE | 2017-06-05 14:25 | HHI.CCPN ---
Subjective Remarks/Hospital Course The patient is a 76-year-old female with past medical history of hypertension, hyperlipidemia, diabetes mellitus, COPD, chronic kidney disease, who was admitted to [facility] yesterday under hospitalist service for acute renal failure and COPD exacerbation. On arrival the patient had BUN of 99 with a creatinine of 14 and potassium level 4.8. Chest x-ray on admission showed no evidence of any acute cardiopulmonary disease. She was seen by Dr. Lee from nephrology service and placed on bicarb drip. A renal ultrasound was obtained which showed no evidence of hydronephrosis. Her renal function continued to worsen. A Halicat was called this morning for respiratory distress. She was subsequently transferred to ICU and was intubated by Dr. Davila, the ED physician. ABG post-intubation showed severe hypercapnic and metabolic acidosis with a pH of 6.89, CO2 63, bicarb 12, pAO2 211, saturation 96 % on PRVC mode rate of 14, tidal volume 500. I time one, PEEP five and FIO2 60% . Chest x-ray post-intubation showed ET tube above the brayan and bilateral interstitial pattern. Her laboratory data this morning is significant for hyperkalemia with potassium level 6.1, BUN of 118, creatinine 14.0. When seen the patient is intubated and sedated with Diprivan drip. Her current blood pressure is 179/90 with a pulse of 117. 06/02 Patient s/p HD 06/01 with 2L fluid removal, 2 L removed today as well. . Patient remains intubated on low dose Diprivan but awake, alert and follows commands. Afebrile. She went into Afib with RVR overnight and started on Amio drip. 06/03 Converted to sinus with PAC's on amiodarone. Remains on mechanical ventilation. UOP 50 ml over last 24 hours. Following commands on sedation, will do SBT. Plan for HD today per discussion with CUSTOMER SOLUTIONS ARCHITECT. 06/04 CPAP trial terminated yesterday after patient became tachycardic, anxious. HD was not performed yesterday but plan for today per nephrology. Will use Precedex to facilitate comfort with CPAP. UOP 150. SUBJ 06/05: Patient had hemodialysis today with 3 L fluid removed. Tolerating CPAP well, awake alert following commands communicating by writing. Chest x- ray remains unchanged Objective Vital Signs Date Time Temp Pulse Resp B/P (MAP) Pulse Ox O2 Delivery O2 Flow Rate FiO2 06/05/17 13:00 70 12 165/69 (101) 99 06/05/17 12:55 35 06/05/17 12:00 98.4 06/05/17 10:35 Nasal Cannula Intake and Output 06/05/17 06/05/17 06/06/17 08:00 16:00 00:00 Intake Total 1894 ml 150 ml Balance 1894 ml 150 ml Result Diagram: 06/05/17 0417 06/05/17 0417 Other Results Laboratory Tests Test 06/05/17 10:02 Blood Gas Puncture Site RT RADIAL Blood Gas Patient Temperature 37.0 Blood Gas HCO3 26 mmol/L (22-26) Blood Gas Base Excess 1.5 mmol/L (-2-2) Blood Gas Oxygen Saturation 95 % (90-100) Arterial Blood pH 7.38 (7.380-7.420) Arterial Blood Partial Pressure CO2 46 mmHg (38-42) Arterial Blood Partial Pressure O2 95 mmHg (61-120) Arterial Blood Oxygen Content 12.0 Vol % (12.0-20.0) Arterial Blood Carboxyhemoglobin 1.3 % (0-4) Arterial Blood Methemoglobin 1.5 % (0-2) Blood Gas Hemoglobin 8.9 G/DL (12.0-16.0) Oxygen Delivery Device VENTILATOR Blood Gas Ventilator Setting CPAP/5PEEP/5PS Blood Gas Inspired Oxygen 35 % Imaging Last Impressions Chest X-Ray 06/01/17 0606 Signed Impressions: Service Date/Time: May 06:21 - CONCLUSION: 1. Adequate placement of endotracheal tube. Jamie Arellano MD Renal Ultrasound 05/31/17 0000 Signed Impressions: Service Date/Time: Wednesday, May 31, 2017 08:54 - CONCLUSION: 1. Abnormal appearance to the left kidney with diminutive size and poor delineation of the parenchymal architecture. 2. No gross abnormality seen in the right kidney. Aramis Scott MD Objective Remarks GENERAL: Patient is 76 yo intubated, off continuous sedation. SKIN: Warm and dry. HEAD: Normocephalic. EYES: No scleral icterus. No injection or drainage. NECK: Supple, trachea midline. No JVD or lymphadenopathy. CARDIOVASCULAR: Regular rate and rhythm without murmurs, gallops, or rubs. RESPIRATORY: Coarse bibasilar breath sounds. GASTROINTESTINAL: Abdomen soft, non-tender, nondistended. MUSCULOSKELETAL: No cyanosis, 1+ edema all extremities. NEURO: Intubated but wide awake, moves all extremities spontaneously and follows commands, makes eye contact. A/P Assessment and Plan 1. Acute hypoxemic and hypercapnic respiratory failure. 2. Acute on chronic kidney disease. 3. s/p Hyperkalemia and hyperphosphatemia. 4. PAF 5. Hyperglycemia. 6. Anemia. 7. COPD. 8. Hypertension. 9. Hyperlipidemia. 10. Morbid obesity. Plan Neuro: Anxiety Patient has been off all continuous sedation. Precedex as needed for comfort while on CPAP Xanax 0.25 mg by mouth every 8 hours as needed for anxiety Pulm: Acute hypercapnic respiratory failure Tobacco abuse Tolerating CPAP today and will wean to extubate CXR 06/03 still with some pulmonary edema. Bronchodilators, off solumedrol Pulm following, Dr. Hammonds CV: Hypertension Hyperlipidemia Paroxysmal atrial fibrillation Monitor HR and BP and maintain MAP>65 mmHg. Converted to sinus rhythm after amiodarone infusion. Off amiodarone now, monitor. Normotensive currently on sedation. Home enalapril 20 bid on hold. Consider metoprolol if antihypertensive needed. Echo showed 50-55% Continue atorvastatin 80 mg by mouth daily at bedtime : CKD Stage IV, now on HD and probable ESRD with custodial dialysis. Diabetic nephropathy Monitor renal function, I&O's and avoid nephrotoxins. HD started 06/01 with 2 KG removal, 06/02 with 2 KG removal. s/p HD today with 3L removed. GI: Diarrhea present on admission On Pepcid 10mg IV Q12 for GI prophylaxis. Tolerating Suplena, now on hold for CPAP trial. C diff negative. ID: Acute community acquired pneumonia Continue Rocephin for total 8 day antibiotic course.. sputum culture 06/01: Klebsiella, E Coli S to Rocephin Afebrile no leukocytosis. Endo: Sl. Glucose is above target. Detemir 10 units subcut q12 hours. Medium dose sliding scale q4 hours. Heme: Monitor CBC. GI prophylaxis with Protonix 40 mg daily and DVT prophylaxis with SCDs and heparin subcut. Lines: Peripheral IV's, Right IJ vascath placed 06/01 #5 Discussed with bedside RN. CPAP tolerated this morning. Plan for extubation today Level 2 Laith Polo MD Jun 05, 2017 14:25
--- NOTE | 2017-06-05 16:26 | HHI.NPPN ---
Subjective History of Present Illness 76-year-old female with past medical history of hypertension, diabetes mellitus, hyperlipidemia, ischemic heart disease, chronic kidney disease, chronic obstructive pulmonary disease was admitted because of generalized weakness, decreased urine output. I he was called to see the patient for elevated BUN and creatinine. The patient is known to me from before. She has been following with me in the office and last time I saw her was on May 04 and at that time her creatinine was 2.2 with given the GFR of 19-20 she had advanced stage IV chronic kidney disease most likely because of diabetic nephropathy. Additional Remarks Patient seen after extubation. Review of Systems General General Remarks Intubated and sedated. Objective Data Data 06/05/17 06/06/17 19:00 07:00 Intake Total 1994 ml Output Total 3000 ml Balance -1006 ml IV Total 1454 ml Tube Feeding 540 ml Hemodialysis 3000 ml Vital Signs Date Time Temp Pulse Resp B/P (MAP) Pulse Ox O2 Delivery O2 Flow Rate FiO2 06/05/17 14:28 72 25 143/73 (96) 97 06/05/17 14:15 96 Nasal Cannula 3 06/05/17 14:00 82 23 195/88 (123) 99 06/05/17 13:00 70 12 165/69 (101) 99 06/05/17 13:00 72 06/05/17 12:55 95 35 06/05/17 12:00 98.4 60 18 127/60 (82) 99 06/05/17 12:00 35 06/05/17 11:15 60 18 115/60 (78) 100 06/05/17 11:04 100 35 06/05/17 11:01 60 18 133/64 (87) 99 06/05/17 11:00 60 06/05/17 10:45 35 06/05/17 10:35 Nasal Cannula 32 35 06/05/17 10:01 86 20 178/87 (117) 94 06/05/17 10:00 35 06/05/17 09:25 35 06/05/17 09:01 62 18 132/61 (84) 99 06/05/17 09:00 62 06/05/17 08:01 98.4 60 17 135/65 (88) 99 06/05/17 08:00 35 06/05/17 07:22 98 35 06/05/17 07:01 62 18 130/60 (83) 99 06/05/17 07:00 62 06/05/17 06:01 98.1 84 24 147/70 (95) 100 06/05/17 05:06 97.8 82 17 156/51 (86) 98 06/05/17 05:00 90 06/05/17 04:31 92 18 163/46 (85) 100 06/05/17 04:06 99 35 06/05/17 04:01 98 21 175/74 (107) 99 06/05/17 04:00 35 06/05/17 03:31 72 17 153/70 (97) 98 06/05/17 03:10 76 17 152/61 (91) 97 06/05/17 03:01 80 06/05/17 02:31 76 17 149/69 (95) 97 06/05/17 02:01 94 17 162/80 (107) 99 06/05/17 01:32 85 06/05/17 01:31 82 17 154/57 (89) 97 06/05/17 01:08 99 35 06/05/17 01:01 70 17 140/60 (86) 97 06/05/17 01:01 70 17 140/60 (86) 97 06/05/17 00:31 99.3 100 31 176/71 (106) 100 06/05/17 00:31 100 31 176/71 (106) 100 06/05/17 00:20 40 06/05/17 00:01 70 17 142/62 (88) 96 06/05/17 00:01 70 17 142/62 (88) 96 06/05/17 00:00 70 17 96 06/05/17 00:00 70 17 96 06/04/17 23:31 74 18 138/67 (90) 99 06/04/17 23:31 74 18 138/67 (90) 99 06/04/17 23:30 74 17 99 06/04/17 23:15 92 20 99 06/04/17 23:01 82 17 164/63 (96) 97 06/04/17 23:01 82 17 164/63 (96) 97 06/04/17 23:00 90 06/04/17 23:00 84 18 97 06/04/17 23:00 84 18 97 06/04/17 22:58 97 35 06/04/17 22:45 72 17 97 06/04/17 22:31 80 18 152/55 (87) 98 06/04/17 22:30 80 18 98 06/04/17 22:15 74 17 97 06/04/17 22:01 80 17 142/58 (86) 97 06/04/17 22:00 98.5 80 16 142/55 (84) 98 06/04/17 22:00 80 17 97 06/04/17 21:30 98.7 74 17 115/90 (98) 98 06/04/17 21:00 35 06/04/17 20:30 98.9 74 17 152/90 (110) 98 06/04/17 20:30 74 06/04/17 19:52 98 35 06/04/17 19:00 98.7 112 22 115/98 (104) 100 06/04/17 18:31 84 22 149/73 (98) 97 06/04/17 18:31 97.9 84 22 149/73 (98) 97 06/04/17 18:30 86 19 96 06/04/17 18:30 86 19 96 06/04/17 18:15 70 27 96 06/04/17 18:15 70 27 96 06/04/17 18:01 76 31 130/54 (79) 95 06/04/17 18:01 76 31 130/54 (79) 95 06/04/17 18:00 74 26 95 06/04/17 18:00 74 26 95 06/04/17 17:25 97 35 06/04/17 17:15 90 22 98 06/04/17 17:01 98 22 148/62 (90) 97 06/04/17 17:00 92 18 97 06/04/17 16:49 40 06/04/17 16:35 97 40 -: 06/05/17 0417 06/05/17 0417 Physical Exam General Appearance: No Acute Distress, Comfortable Eyes Eye Exam: Pupils Equal Throat Throat Exam: Oral Mucosa [place] & Moist Neck Neck Exam: Neck Supple Pulmonary Resp Exam: Breath Sounds Equal, No Distress, Rhonchi, Decreased Bases, Diminished Breath Sounds, Poor Inspiratory Effort Cardiology CV Exam: Regular, Normal Sinus Rhythm Gastrointestinal/Abdomen GI Exam: Soft, Non-Tender, Bowel Sounds Present, Distended Extremeties Extremities Exam: Moderate Edema Neurologic Neuro Exam: Alert, Awake, Oriented Psychiatric Psych Exam: Appropriate Responses Assessment/Plan Assessment Summary: MIRACLE/Acute Renal Failure, Hypertension, CKD Stage IV Problem List: (1) Chronic kidney disease (CKD) ICD Codes: N18.9 - Chronic kidney disease, unspecified (2) Oliguria ICD Codes: R34 - Anuria and oliguria (3) Diarrhea ICD Codes: R19.7 - Diarrhea, unspecified (4) Metabolic acidosis ICD Codes: E87.2 - Acidosis Status: Acute (5) Uremia ICD Codes: N19 - Unspecified kidney failure Status: Acute (6) Acute renal failure ICD Codes: N17.9 - Acute kidney failure, unspecified Status: Acute Plan Patient has advance stage 4 chronic kidney disease, approach stage 5. Started on HD. Patient is now extubated, Had UF done today and 3liters removed.\Yesterday and 4.3 liters removed. BP is stable. Hgb. is same. D/W the patient;s daughter. Patient will need AVF and half-way HD. She also want her mother to go to SNF. Problem Qualifiers (1) Chronic kidney disease (CKD): Qualified Codes: N18.5 - Chronic kidney disease, stage 5 (2) Acute renal failure: Qualified Codes: N17.9 - Acute kidney failure, unspecified Lexy Lee MD Jun 05, 2017 16:25
--- NOTE | 2017-06-05 18:21 | HHI.PR ---
Subjective Remarks 76 YOWF with VDRF,Ac renal Failure,DM, Met acidosis had HD No Fever Extubated Alert, awake Hungery Objective Vital Signs Vital Signs Date Time Temp Pulse Resp B/P (MAP) Pulse Ox O2 Delivery O2 Flow Rate FiO2 06/05/17 17:00 76 06/05/17 16:00 72 06/05/17 15:00 72 06/05/17 14:28 72 25 143/73 (96) 97 06/05/17 14:15 96 Nasal Cannula 3 06/05/17 14:00 82 23 195/88 (123) 99 06/05/17 13:00 70 12 165/69 (101) 99 06/05/17 13:00 72 06/05/17 12:55 95 35 06/05/17 12:00 98.4 60 18 127/60 (82) 99 06/05/17 12:00 35 06/05/17 11:15 60 18 115/60 (78) 100 06/05/17 11:04 100 35 06/05/17 11:01 60 18 133/64 (87) 99 06/05/17 11:00 60 06/05/17 10:45 35 06/05/17 10:35 Nasal Cannula 32 35 06/05/17 10:01 86 20 178/87 (117) 94 06/05/17 10:00 35 06/05/17 09:25 35 06/05/17 09:01 62 18 132/61 (84) 99 06/05/17 09:00 62 06/05/17 08:01 98.4 60 17 135/65 (88) 99 06/05/17 08:00 35 06/05/17 07:22 98 35 06/05/17 07:01 62 18 130/60 (83) 99 06/05/17 07:00 62 06/05/17 06:01 98.1 84 24 147/70 (95) 100 06/05/17 05:06 97.8 82 17 156/51 (86) 98 06/05/17 05:00 90 06/05/17 04:31 92 18 163/46 (85) 100 06/05/17 04:06 99 35 06/05/17 04:01 98 21 175/74 (107) 99 06/05/17 04:00 35 06/05/17 03:31 72 17 153/70 (97) 98 06/05/17 03:10 76 17 152/61 (91) 97 06/05/17 03:01 80 06/05/17 02:31 76 17 149/69 (95) 97 06/05/17 02:01 94 17 162/80 (107) 99 06/05/17 01:32 85 06/05/17 01:31 82 17 154/57 (89) 97 06/05/17 01:08 99 35 06/05/17 01:01 70 17 140/60 (86) 97 06/05/17 01:01 70 17 140/60 (86) 97 06/05/17 00:31 99.3 100 31 176/71 (106) 100 06/05/17 00:31 100 31 176/71 (106) 100 06/05/17 00:20 40 06/05/17 00:01 70 17 142/62 (88) 96 06/05/17 00:01 70 17 142/62 (88) 96 06/05/17 00:00 70 17 96 06/05/17 00:00 70 17 96 06/04/17 23:31 74 18 138/67 (90) 99 06/04/17 23:31 74 18 138/67 (90) 99 06/04/17 23:30 74 17 99 06/04/17 23:15 92 20 99 06/04/17 23:01 82 17 164/63 (96) 97 06/04/17 23:01 82 17 164/63 (96) 97 06/04/17 23:00 90 06/04/17 23:00 84 18 97 06/04/17 23:00 84 18 97 06/04/17 22:58 97 35 06/04/17 22:45 72 17 97 06/04/17 22:31 80 18 152/55 (87) 98 06/04/17 22:30 80 18 98 06/04/17 22:15 74 17 97 06/04/17 22:01 80 17 142/58 (86) 97 06/04/17 22:00 98.5 80 16 142/55 (84) 98 06/04/17 22:00 80 17 97 06/04/17 21:30 98.7 74 17 115/90 (98) 98 06/04/17 21:00 35 06/04/17 20:30 98.9 74 17 152/90 (110) 98 06/04/17 20:30 74 06/04/17 19:52 98 35 06/04/17 19:00 98.7 112 22 115/98 (104) 100 06/04/17 18:31 84 22 149/73 (98) 97 06/04/17 18:31 97.9 84 22 149/73 (98) 97 06/04/17 18:30 86 19 96 06/04/17 18:30 86 19 96 I/O 06/04/17 06/04/17 06/04/17 06/05/17 06/05/17 06/05/17 07:00 15:00 23:00 07:00 15:00 23:00 Intake Total 870 ml 1017 ml 50 ml 1994 ml Output Total 25 ml 4300 ml 48 ml 3000 ml Balance 845 ml -4300 ml 969 ml 50 ml 1994 ml -3000 ml IV Total 350 ml 217 ml 50 ml 1454 ml Tube Feeding 520 ml 400 ml 540 ml TPN/PPN 400 ml Output Urine Total 25 ml 45 ml Stool Total 3 ml Hemodialysis 4300 ml 3000 ml Result Diagram: 06/05/17 0417 06/05/17 0417 Objective Remarks GENERAL: WBWN WF, On NC SKIN: Warm and dry. HEAD: Normocephalic. EYES: No scleral icterus. No injection or drainage. NECK: Supple, trachea midline. No JVD or lymphadenopathy. CARDIOVASCULAR: Regular rate and rhythm without murmurs, gallops, or rubs. RESPIRATORY: Breath sounds equal bilaterally. No accessory muscle use. GASTROINTESTINAL: Abdomen soft, non-tender, nondistended. MUSCULOSKELETAL: No cyanosis, or edema. BACK: Nontender without obvious deformity. No CVA tenderness. A/P Assessment and Plan VDRF, s/p Extubation COPD Ac renal Failure Metabolic acidosis DM Nicotine use PLAN: Clear liq and advance Aerosol nebs Supplement 02 Monitor Jac Michaud MD Jun 05, 2017 18:21
[2017-06-05] MEDS: ATORVASTATIN 40 MG TAB PO SCH (20:05)
[2017-06-05] MEDS ORDERED: DILTIAZEM HCL 25 MG/5 ML VIAL IV ONE ×2 (22:15→23:00)
[2017-06-05] MEDS ORDERED: DEXMEDETOMIDINE HCL 200 MCG/2 ML VIAL ONE (22:33)
[2017-06-05] MEDS ORDERED: DILTIAZEM HCL 25 MG/5 ML VIAL IV SCH (22:50)
[2017-06-05 23:36] LABS: POTASSIUM 3.8 MEQ/L (3.5-5.1)
[2017-06-05 23:43] LABS: MAGNESIUM 2.4 MG/DL (1.5-2.5)
[2017-06-06] VITALS (56 sets, daily range): BP systolic 93–188; BP diastolic 43–81; PULSE 64–90; RESP 14–33; TEMP 96.7–99; O2SAT 92–100
[2017-06-06] MEDS: INSULIN NovoLIN REGULAR SUPPLEMENTAL SCALE SQ SCH
[2017-06-06 00:21] LABS: BLOOD GAS BASE EXCESS 0.2 mmol/L (-2-2); BLOOD GAS CARBOXYHEMOGLOBIN 1.7 % (0-4); BLOOD GAS HCO3 27 mmol/L (22-26); BLOOD GAS METHEMOGLOBIN 1.4 % (0-2); BLOOD GAS O2 HGB SATURATION 94 % (90-100); BLOOD GAS PCO2 62 mmHG (38-42); BLOOD GAS PO2 104 mmHG (61-120); TEMP CORR TO 98.6
[2017-06-06 00:27] LABS: OXYGEN DEVICE BiPAP
[2017-06-06 00:28] LABS: DRAW SITE RT RADIAL; FIO2 40 %; NUMBER OF ARTERIAL PUNCTURES 1; STAT NO; ULNAR PULSE PRESENT
[2017-06-06] MEDS: RESP: ALBUTEROL 2.5 MG/IPRATROPIUM 0.5 MG NEB (SCH) NEB ×4 (03:31→20:58)
[2017-06-06] MEDS: DEXMEDETOMIDINE INJ 200 MCG in SODIUM CHLORIDE 0.9% INJ 50 ML IV PRN (03:36)
[2017-06-06] MEDS: LOW DOSE INSULIN NOVOLIN REGULAR SUPPLEMENTAL SCALE SQ SCH ×5 (04:00→20:00)
[2017-06-06] MEDS: CHLORHEXIDINE GLUCONATE 2 % 1 PACK (2 CLOTHS) TOP SCH (04:00)
[2017-06-06 05:07] LABS: AUTOMATED NEUTROPHIL # 11.5 TH/MM3 (1.8-7.7); BASOPHIL # 0.1 TH/MM3 (0-0.2); EOSINOPHIL # 0.1 TH/MM3 (0-0.4); EOSINOPHIL % 0.5 % (0.0-4.0); HEMATOCRIT 26.5 % (35.0-46.0); LYMPH % 7.9 % (9.0-44.0); LYMPHOCYTE # 1.1 TH/MM3 (1.0-4.8); MEAN CELL VOLUME 81.4 FL (80.0-100.0); MEAN CORPUSCULAR HEMOGLOBIN 26.1 PG (27.0-34.0); MEAN CORPUSCULAR HGB CONC 32.1 % (32.0-36.0); MONO % 6.6 % (0.0-8.0); PLATELET COUNT 180 TH/MM3 (150-450); RED BLOOD COUNT 3.25 MIL/MM3 (4.00-5.30); RED CELL DISTRIBUTION WIDTH 18.1 % (11.6-17.2); WHITE BLOOD COUNT 13.7 TH/MM3 (4.0-11.0)
[2017-06-06 05:11] LABS: HEMO FLAGS AUTO DIFF
[2017-06-06 05:12] LABS: CHLORIDE 98 MEQ/L (98-107); POTASSIUM 3.8 MEQ/L (3.5-5.1); SODIUM (NA) 139 MEQ/L (136-145)
[2017-06-06 05:17] LABS: ANION GAP 12 MEQ/L (5-15); BICARBONATE 29.3 MEQ/L (21.0-32.0); BLOOD UREA NITROGEN 50 MG/DL (7-18)
[2017-06-06 05:20] LABS: ALT (GPT) 76 U/L (10-53)
[2017-06-06 05:44] LABS: BLOOD GAS BASE EXCESS 2.4 mmol/L (-2-2); BLOOD GAS CARBOXYHEMOGLOBIN 1.8 % (0-4); BLOOD GAS HCO3 27 mmol/L (22-26); BLOOD GAS METHEMOGLOBIN 1.4 % (0-2); BLOOD GAS O2 HGB SATURATION 94 % (90-100); BLOOD GAS OXYGEN CONTENT 12.1 Vol % (12.0-20.0); BLOOD GAS PCO2 46 mmHG (38-42); BLOOD GAS PO2 86 mmHG (61-120); BLOOD GAS TOTAL HGB 9.1 G/DL (12.0-16.0); CRITICAL VALUE NO; OXYGEN DEVICE BIPAP; TEMP CORR TO 98.6
[2017-06-06 05:45] LABS: DRAW SITE RT RADIAL; FIO2 35 %; NUMBER OF ARTERIAL PUNCTURES 1; STAT NO; ULNAR PULSE PRESENT; VENT SETTINGS IPAP 15/EPAP 7
[2017-06-06 05:57] LABS: ALKALINE PHOSPHATASE 54 U/L (45-117); AST (GOT) 61 U/L (15-37); GLOMERULAR FILTRATION RATE 6 ML/MIN (>89); TOTAL BILIRUBIN ADULT 0.5 MG/DL (0.2-1.0)
--- NOTE | 2017-06-06 06:34 | RADRPT ---
EXAM DATE/TIME: 06/06/2017 05:59 [facility] COMPARISON: CHEST SINGLE AP, June 05, 2017, 5:48. INDICATIONS : Shortness of breath. MEDICAL HISTORY : Chronic obstructive pulmonary disease. Hypercholesterolemia. Hypertension. Stage IV kidney diseas e. Fatty liver, Diabetes SURGICAL HISTORY : Umbilical hernia repair. Cholecystectomy. Hysterectomy. Appendectomy.Right knee replacement.Bilateral rotator cuff repair ENCOUNTER: Subsequent ACUITY: 1 week PAIN SCORE: Non-responsive. LOCATION: Bilateral chest FINDINGS: Right neck central catheter is stable. There is persistent hazy bilateral pleuroparenchymal opacity. Ectatic for rotation, cardiac contours are unchanged. CONCLUSION: No significant interval change Christ Feldman MD on June 06, 2017 at 6:32 Board Certified Radiologist. This report was verified electronically.
[2017-06-06 07:16] LABS: METAMYELOCYTES 1 % (0-1); NEUTROPHIL # MANUAL DIFF 12.1 TH/MM3 (1.8-7.7); POLYS (SEG NEUTROPHILS) 87 % (16-70); WBC DIFF SAMPLE 100
[2017-06-06 07:17] LABS: OVALOCYTES 1+ (NORMAL); SCAN/DIFF FINAL DIFF MANUAL; TEARDROP RBCS 1+ (NORMAL)
[2017-06-06] MEDS: RESP: ALBUTEROL 2.5 MG/IPRATROPIUM 0.5 MG NEB (PRN) NEB (07:32)
[2017-06-06] MEDS: CHLORHEXIDINE 0.12% (ORAL KIT) 15 ML CUP MT SCH ×2 (08:00→20:00)
[2017-06-06] MEDS: FAMOTIDINE 20 MG/2 ML VIAL IV PUSH SCH ×2 (08:25→21:30)
[2017-06-06] MEDS: SODIUM CHLORIDE 0.9% FLUSH 10 ML FLUSH IV FLUSH SCH ×2 (08:26→21:11)
[2017-06-06] MEDS: INSULIN DETEMIR 100 UNITS/ML VIAL SQ SCH ×2 (08:26→21:10)
[2017-06-06] MEDS: DOCUSATE SODIUM 50 MG/SENNA 8.6 MG TAB PO SCH ×2 (08:26→21:10)
[2017-06-06] MEDS: cefTRIAXone INJ 1,000 MG in SODIUM CHLORIDE 0.9% INJ 100 ML IV SCH ×2 (08:29→21:09)
[2017-06-06] MEDS: HEPARIN SODIUM - SQ 10,000 UNITS/ML VIAL SQ SCH ×2 (13:40→21:10)
[2017-06-06] MEDS: ALPRAZolam 0.25 MG TAB PO PRN ×2 (13:41→22:23)
--- NOTE | 2017-06-06 16:43 | HHI.CCPN ---
Subjective Remarks/Hospital Course The patient is a 76-year-old female with past medical history of hypertension, hyperlipidemia, diabetes mellitus, COPD, chronic kidney disease, who was admitted to [facility] yesterday under hospitalist service for acute renal failure and COPD exacerbation. On arrival the patient had BUN of 99 with a creatinine of 14 and potassium level 4.8. Chest x-ray on admission showed no evidence of any acute cardiopulmonary disease. She was seen by Dr. Lee from nephrology service and placed on bicarb drip. A renal ultrasound was obtained which showed no evidence of hydronephrosis. Her renal function continued to worsen. A Halicat was called this morning for respiratory distress. She was subsequently transferred to ICU and was intubated by Dr. Davila, the ED physician. ABG post-intubation showed severe hypercapnic and metabolic acidosis with a pH of 6.89, CO2 63, bicarb 12, pAO2 211, saturation 96 % on PRVC mode rate of 14, tidal volume 500. I time one, PEEP five and FIO2 60% . Chest x-ray post-intubation showed ET tube above the brayan and bilateral interstitial pattern. Her laboratory data this morning is significant for hyperkalemia with potassium level 6.1, BUN of 118, creatinine 14.0. When seen the patient is intubated and sedated with Diprivan drip. Her current blood pressure is 179/90 with a pulse of 117. 06/02 Patient s/p HD 06/01 with 2L fluid removal, 2 L removed today as well. . Patient remains intubated on low dose Diprivan but awake, alert and follows commands. Afebrile. She went into Afib with RVR overnight and started on Amio drip. 06/03 Converted to sinus with PAC's on amiodarone. Remains on mechanical ventilation. UOP 50 ml over last 24 hours. Following commands on sedation, will do SBT. Plan for HD today per discussion with [employer]. 06/04 CPAP trial terminated yesterday after patient became tachycardic, anxious. HD was not performed yesterday but plan for today per nephrology. Will use Precedex to facilitate comfort with CPAP. UOP 150. SUBJ 06/05: Patient had hemodialysis today with 3 L fluid removed. Tolerating CPAP well, awake alert following commands communicating by writing. Chest x- ray remains unchanged 06/06: Overnight placed on Precedex for agitation. Also required BIPAP for hypercapnea. Weaned off Precedex by afternoon today. Currently on Xanax when necessary. At this time on BiPAP. Patient is pleasant and communicative breathing comfortably. Bilateral wheezes on exam. I have started patient on IV Solu-Medrol, Symbicort and Spiriva Objective Vital Signs Date Time Temp Pulse Resp B/P (MAP) Pulse Ox O2 Delivery O2 Flow Rate FiO2 06/06/17 15:48 95 35 06/06/17 13:02 78 20 143/64 (90) 06/06/17 12:01 98.3 06/06/17 09:00 Nasal Cannula 2.00 Intake and Output 06/06/17 06/06/17 06/07/17 08:00 16:00 00:00 Output Total 200 ml Balance -200 ml Result Diagram: 06/06/17 0434 06/06/17 0434 Other Results Laboratory Tests Test 06/05/17 22:13 06/06/17 05:29 Blood Gas Puncture Site RT RADIAL RT RADIAL Blood Gas Patient Temperature 98.6 98.6 Blood Gas HCO3 27 mmol/L (22-26) 27 mmol/L (22-26) Blood Gas Base Excess 0.2 mmol/L (-2-2) 2.4 mmol/L (-2-2) Blood Gas Oxygen Saturation 94 % (90-100) 94 % (90-100) Arterial Blood pH 7.26 (7.380-7.420) 7.38 (7.380-7.420) Arterial Blood Partial Pressure CO2 62 mmHG (38-42) 46 mmHG (38-42) Arterial Blood Partial Pressure O2 104 mmHG (61-120) 86 mmHG (61-120) Arterial Blood Oxygen Content 12.0 Vol % (12.0-20.0) 12.1 Vol % (12.0-20.0) Arterial Blood Carboxyhemoglobin 1.7 % (0-4) 1.8 % (0-4) Arterial Blood Methemoglobin 1.4 % (0-2) 1.4 % (0-2) Blood Gas Hemoglobin 9.0 G/DL (12.0-16.0) 9.1 G/DL (12.0-16.0) Oxygen Delivery Device BiPAP BIPAP Blood Gas Ventilator Setting IPAP 15/EPAP 7 Blood Gas Inspired Oxygen 40 % 35 % Imaging Last Impressions Chest X-Ray 06/01/17 0606 Signed Impressions: Service Date/Time: May 06:21 - CONCLUSION: 1. Adequate placement of endotracheal tube. Jamie Arellano MD Renal Ultrasound 05/31/17 0000 Signed Impressions: Service Date/Time: Wednesday, May 31, 2017 08:54 - CONCLUSION: 1. Abnormal appearance to the left kidney with diminutive size and poor delineation of the parenchymal architecture. 2. No gross abnormality seen in the right kidney. Aramis Scott MD Objective Remarks GENERAL: Patient is 76 yo on BiPAP. SKIN: Warm and dry. HEAD: Normocephalic. EYES: No scleral icterus. No injection or drainage. NECK: Supple, trachea midline. No JVD or lymphadenopathy. CARDIOVASCULAR: Regular rate and rhythm without murmurs, gallops, or rubs. RESPIRATORY: Coarse bibasilar breath sounds. Bilateral wheezing heard today, on BiPAP GASTROINTESTINAL: Abdomen soft, non-tender, nondistended. MUSCULOSKELETAL: No cyanosis, 1+ edema all extremities. NEURO: Alert awake, follows commands. No FND Assessment to: Remove A/P Assessment and Plan ASSESSMENT: Acute hypoxemic and hypercapnic respiratory failure. Acute on chronic kidney disease. Acute COPD exacerbation s/p Hyperkalemia and hyperphosphatemia. PAF Hyperglycemia. Anemia. COPD. Hypertension. Hyperlipidemia. Morbid obesity. PLAN: Neuro: Anxiety On Precedex for anxiety and agitation currently weaned off Xanax 0.5 mg by mouth every 8 hours as needed for anxiety Pulm: Acute hypercapnic respiratory failure Acute COPD exacerbation Tobacco abuse Extubated 06/05/17. No on PRN BiPAP Bronchodilators, off solumedrol. Receiving Solu-Medrol 40 mg every 8 hours due to wheezing, 80 mg IV stat now Start Symbicort and Spiriva Pulm following, Dr. Hammonds CV: Hypertension Hyperlipidemia Paroxysmal atrial fibrillation Monitor HR and BP and maintain MAP>65 mmHg. Converted to sinus rhythm after amiodarone infusion. Off amiodarone now, monitor. Normotensive currently on sedation. Home enalapril 20 bid on hold. Start Cardizem CD 120 mg daily as antihypertensive/rate control Echo showed 50-55% Continue atorvastatin 80 mg by mouth daily at bedtime : CKD Stage IV, now on HD and probable ESRD with assisted dialysis. Diabetic nephropathy Monitor renal function, I&O's and avoid nephrotoxins. HD started 06/01 with 2 KG removal, 06/02 with 2 KG removal. s/p HD 06/05 with 3L removed. GI: Diarrhea present on admission On Pepcid 10mg IV Q12 for GI prophylaxis. Renal diet if toerlated C diff negative. ID: Acute community acquired pneumonia Continue Rocephin for total 8 day antibiotic course.. sputum culture 06/01: Klebsiella, E Coli S to Rocephin Afebrile no leukocytosis. Endo: Sl. Glucose is above target. Detemir 10 units subcut q12 hours. Medium dose sliding scale q4 hours. Heme: Monitor CBC. GI prophylaxis with Protonix 40 mg daily and DVT prophylaxis with SCDs and heparin subcut. Lines: Peripheral IV's, Right IJ vascath placed 06/01 Consult [facility] to assume care in am 06/07/17. Pulmonary Dr. Hammonds following Level 3 Laith Polo MD Jun 06, 2017 16:43
[2017-06-06] MEDS ORDERED: methylPREDNISolone SOD SUCC 125 MG/2 ML VIAL IV PUSH ONE (16:45)
--- NOTE | 2017-06-06 17:05 | HHI.NPPN ---
Subjective History of Present Illness 76-year-old female with past medical history of hypertension, diabetes mellitus, hyperlipidemia, ischemic heart disease, chronic kidney disease, chronic obstructive pulmonary disease was admitted because of generalized weakness, decreased urine output. I he was called to see the patient for elevated BUN and creatinine. The patient is known to me from before. She has been following with me in the office and last time I saw her was on May 04 and at that time her creatinine was 2.2 with given the GFR of 19-20 she had advanced stage IV chronic kidney disease most likely because of diabetic nephropathy. Additional Remarks Patient is alert, has SOB off and on, was on BIPAP over night. Review of Systems General General Remarks Intubated and sedated. Objective Data Data Vital Signs Date Time Temp Pulse Resp B/P (MAP) Pulse Ox O2 Delivery O2 Flow Rate FiO2 06/06/17 15:48 95 35 06/06/17 13:02 78 20 143/64 (90) 94 06/06/17 13:02 78 06/06/17 12:01 98.3 84 21 160/81 (107) 94 06/06/17 12:01 84 06/06/17 11:01 86 26 147/77 (100) 92 06/06/17 11:01 86 06/06/17 10:01 78 16 140/64 (89) 96 06/06/17 10:00 80 06/06/17 09:01 78 24 146/64 (91) 98 06/06/17 09:00 78 06/06/17 09:00 95 Nasal Cannula 2.00 06/06/17 08:01 78 27 147/60 (89) 98 06/06/17 08:00 78 06/06/17 07:34 94 35 06/06/17 07:01 68 06/06/17 07:01 98.7 68 20 119/52 (74) 96 06/06/17 05:46 86 20 163/70 (101) 96 06/06/17 05:31 90 33 174/75 (108) 98 06/06/17 05:16 82 16 188/76 (113) 97 06/06/17 05:14 87 06/06/17 05:01 80 23 178/80 (112) 98 06/06/17 05:00 82 22 98 06/06/17 04:46 76 14 158/65 (96) 97 06/06/17 04:31 74 17 131/61 (84) 96 06/06/17 04:16 64 17 105/45 (65) 96 06/06/17 04:01 96.7 72 21 120/61 (80) 100 06/06/17 04:00 84 06/06/17 03:46 66 19 110/47 (68) 100 06/06/17 03:40 100 40 06/06/17 03:31 72 19 112/54 (73) 97 06/06/17 03:16 68 28 107/43 (64) 97 06/06/17 03:01 72 06/06/17 03:01 70 19 108/44 (65) 98 06/06/17 02:10 84 06/06/17 02:01 84 18 138/58 (84) 99 06/06/17 01:59 99 40 06/06/17 01:46 70 18 93/52 (66) 98 06/06/17 01:31 76 18 113/56 (75) 99 06/06/17 01:16 82 16 140/61 (87) 99 06/06/17 01:01 80 17 135/56 (82) 99 06/06/17 00:46 80 18 123/58 (79) 99 06/06/17 00:31 84 19 133/58 (83) 98 06/06/17 00:16 99.0 84 20 131/53 (79) 97 06/06/17 00:02 86 20 119/52 (74) 98 06/05/17 23:46 92 21 134/57 (82) 99 06/05/17 23:31 106 24 160/76 (104) 97 06/05/17 23:16 124 34 157/80 (105) 100 06/05/17 23:15 96 40 06/05/17 23:01 122 28 199/91 (127) 100 06/05/17 23:00 136 06/05/17 22:50 140 06/05/17 22:46 116 24 214/113 (146) 100 06/05/17 22:38 118 38 228/108 (148) 100 06/05/17 22:30 116 33 79 06/05/17 22:30 98 100 06/05/17 22:30 118 38 202/120 (147) 78 06/05/17 22:00 130 28 190/112 (138) 87 06/05/17 20:45 112 22 170/70 (103) 95 06/05/17 19:31 92 Nasal Cannula 3.00 06/05/17 19:30 98.9 108 20 170/74 (106) 94 06/05/17 19:30 102 06/05/17 18:00 94 21 177/69 (105) 96 -: 06/06/17 0434 06/06/17 0434 Physical Exam General Appearance: No Acute Distress, Comfortable Eyes Eye Exam: Pupils Equal Throat Throat Exam: Oral Mucosa [place] & Moist Neck Neck Exam: Neck Supple Pulmonary Resp Exam: Breath Sounds Equal, No Distress, Rhonchi, Decreased Bases, Diminished Breath Sounds, Poor Inspiratory Effort Cardiology CV Exam: Regular, Normal Sinus Rhythm Gastrointestinal/Abdomen GI Exam: Soft, Non-Tender, Bowel Sounds Present, Distended Extremeties Extremities Exam: Moderate Edema Neurologic Neuro Exam: Alert, Awake, Oriented Psychiatric Psych Exam: Appropriate Responses Assessment/Plan Assessment Summary: MIRACLE/Acute Renal Failure, Hypertension, CKD Stage IV Problem List: (1) Chronic kidney disease (CKD) ICD Codes: N18.9 - Chronic kidney disease, unspecified (2) Oliguria ICD Codes: R34 - Anuria and oliguria (3) Diarrhea ICD Codes: R19.7 - Diarrhea, unspecified (4) Metabolic acidosis ICD Codes: E87.2 - Acidosis Status: Acute (5) Uremia ICD Codes: N19 - Unspecified kidney failure Status: Acute (6) Acute renal failure ICD Codes: N17.9 - Acute kidney failure, unspecified Status: Acute Plan Patient has advance stage 4 chronic kidney disease, approach stage 5. Started on HD. Patient hs been on HD, last done yesterday. BP is stable. Hgb. is same. Patient will need AVF and laborer [facility] terminal HD. Patient has COPD with high CO2 and developing SOB off and on. HD will be in AM. Problem Qualifiers (1) Chronic kidney disease (CKD): Qualified Codes: N18.5 - Chronic kidney disease, stage 5 (2) Acute renal failure: Qualified Codes: N17.9 - Acute kidney failure, unspecified Lexy Lee MD Jun 06, 2017 17:05
[2017-06-06] MEDS: DILTIAZEM-CD 120 MG CAP ER PO SCH (17:30)
--- NOTE | 2017-06-06 20:10 | HHI.PR ---
Subjective Remarks 76 YOWF with VDRF,Ac renal Failure,DM, Met acidosis had HD No Fever Extubated Using BIPAP Gets anxious Objective Vital Signs Vital Signs Date Time Temp Pulse Resp B/P (MAP) Pulse Ox O2 Delivery O2 Flow Rate FiO2 06/06/17 18:02 80 23 141/64 (89) 98 06/06/17 18:02 80 06/06/17 17:23 96 35 06/06/17 17:02 78 23 128/49 (75) 96 06/06/17 17:00 78 06/06/17 16:02 98.7 86 24 147/73 (97) 94 06/06/17 15:48 95 35 06/06/17 15:02 84 27 160/64 (96) 92 06/06/17 15:00 86 06/06/17 14:02 82 17 147/69 (95) 95 06/06/17 14:02 82 06/06/17 13:02 78 20 143/64 (90) 94 06/06/17 13:02 78 06/06/17 12:01 98.3 84 21 160/81 (107) 94 06/06/17 12:01 84 06/06/17 11:01 86 26 147/77 (100) 92 06/06/17 11:01 86 06/06/17 10:01 78 16 140/64 (89) 96 06/06/17 10:00 80 06/06/17 09:01 78 24 146/64 (91) 98 06/06/17 09:00 78 06/06/17 09:00 95 Nasal Cannula 2.00 06/06/17 08:01 78 27 147/60 (89) 98 06/06/17 08:00 78 06/06/17 07:34 94 35 06/06/17 07:01 68 06/06/17 07:01 98.7 68 20 119/52 (74) 96 06/06/17 05:46 86 20 163/70 (101) 96 06/06/17 05:31 90 33 174/75 (108) 98 06/06/17 05:16 82 16 188/76 (113) 97 06/06/17 05:14 87 06/06/17 05:01 80 23 178/80 (112) 98 06/06/17 05:00 82 22 98 06/06/17 04:46 76 14 158/65 (96) 97 06/06/17 04:31 74 17 131/61 (84) 96 06/06/17 04:16 64 17 105/45 (65) 96 06/06/17 04:01 96.7 72 21 120/61 (80) 100 06/06/17 04:00 84 06/06/17 03:46 66 19 110/47 (68) 100 06/06/17 03:40 100 40 06/06/17 03:31 72 19 112/54 (73) 97 06/06/17 03:16 68 28 107/43 (64) 97 06/06/17 03:01 72 06/06/17 03:01 70 19 108/44 (65) 98 06/06/17 02:10 84 06/06/17 02:01 84 18 138/58 (84) 99 06/06/17 01:59 99 40 06/06/17 01:46 70 18 93/52 (66) 98 06/06/17 01:31 76 18 113/56 (75) 99 06/06/17 01:16 82 16 140/61 (87) 99 06/06/17 01:01 80 17 135/56 (82) 99 06/06/17 00:46 80 18 123/58 (79) 99 06/06/17 00:31 84 19 133/58 (83) 98 06/06/17 00:16 99.0 84 20 131/53 (79) 97 06/06/17 00:02 86 20 119/52 (74) 98 06/05/17 23:46 92 21 134/57 (82) 99 06/05/17 23:31 106 24 160/76 (104) 97 06/05/17 23:16 124 34 157/80 (105) 100 06/05/17 23:15 96 40 06/05/17 23:01 122 28 199/91 (127) 100 06/05/17 23:00 136 06/05/17 22:50 140 06/05/17 22:46 116 24 214/113 (146) 100 06/05/17 22:38 118 38 228/108 (148) 100 06/05/17 22:30 116 33 79 06/05/17 22:30 98 100 06/05/17 22:30 118 38 202/120 (147) 78 10/30/17 22:00 130 28 190/112 (138) 87 06/05/17 20:45 112 22 170/70 (103) 95 I/O 06/05/17 06/05/17 06/05/17 06/06/17 06/06/17 06/06/17 07:00 15:00 23:00 07:00 15:00 23:00 Intake Total 50 ml 2041 ml 349 ml 182 ml 240 ml Output Total 3175 ml 200 ml 200 ml Balance 50 ml 2041 ml -2826 ml -200 ml 182 ml 40 ml Intake Oral 240 ml IV Total 50 ml 1501 ml 182 ml Tube Feeding 540 ml 289 ml Other 60 ml Output Urine Total 75 ml 50 ml Stool Total 100 ml 200 ml 150 ml Hemodialysis 3000 ml # Voids 50 Result Diagram: 06/06/1743306/06/17433 Objective Remarks GENERAL: WBWN WF, On NC SKIN: Warm and dry. HEAD: Normocephalic. EYES: No scleral icterus. No injection or drainage. NECK: Supple, trachea midline. No JVD or lymphadenopathy. CARDIOVASCULAR: Regular rate and rhythm without murmurs, gallops, or rubs. RESPIRATORY: Breath sounds equal bilaterally. No accessory muscle use. GASTROINTESTINAL: Abdomen soft, non-tender, nondistended. MUSCULOSKELETAL: No cyanosis, or edema. BACK: Nontender without obvious deformity. No CVA tenderness. A/P Assessment and Plan VDRF, s/p Extubation COPD Ac renal Failure Metabolic acidosis DM Nicotine use PLAN: Clear liq and advance Aerosol nebs Supplement 02 Monitor BS Cont MCKAYAP Jac Hammonds MD Jun 06, 2017 20:10
--- NOTE | 2017-06-06 20:31 | EKG ---
Date Performed: 06/05/2017 Time Performed: 17:55:57 PTAGE: 76 years EKG: PROBABLY NORMAL Sinus rhythm WITH FREQUENT PAC's SIGNIFICANT BASELINE ARTIFACT PROCLUDING ACCURATE INTERPRETATION. POOR R-WAVE WI OGRESSION Compared to prior tracing no significant change ABNORMAL ECG PREVIOUS TRACING : 05/30/2017 20.23 DOCTOR: Karen Thompson Interpretating Date/Time 06/06/2017 20:30:25
[2017-06-06] MEDS: BUDESONIDE-FORMOTEROL 160/4.5 MCG INHALER INH SCH (21:09)
[2017-06-06] MEDS: ATORVASTATIN 40 MG TAB PO SCH (21:11)
[2017-06-06] MEDS: methylPREDNISolone SOD SUCC 40 MG/1 ML VIAL IV PUSH SCH (21:38)
[2017-06-06] MEDS: SODIUM CHLORIDE 0.9% FLUSH 10 ML FLUSH IV FLUSH PRN (21:38)
[2017-06-07] VITALS (34 sets, daily range): BP systolic 109–178; BP diastolic 49–102; PULSE 64–100; RESP 14–26; TEMP 96.7–98.9; O2SAT 93–99
[2017-06-07] MEDS: LOW DOSE INSULIN NOVOLIN REGULAR SUPPLEMENTAL SCALE SQ SCH ×6 (00:51→20:33)
[2017-06-07] MEDS: RESP: ALBUTEROL 2.5 MG/IPRATROPIUM 0.5 MG NEB (SCH) NEB ×4 (03:24→21:14)
[2017-06-07] MEDS: CHLORHEXIDINE GLUCONATE 2 % 1 PACK (2 CLOTHS) TOP SCH (03:57)
[2017-06-07] MEDS: SODIUM CHLORIDE 0.9% FLUSH 10 ML FLUSH IV FLUSH PRN (05:30)
[2017-06-07] MEDS: HEPARIN SODIUM - SQ 10,000 UNITS/ML VIAL SQ SCH ×3 (05:30→22:27)
[2017-06-07] MEDS: methylPREDNISolone SOD SUCC 40 MG/1 ML VIAL IV PUSH SCH ×3 (05:30→22:26)
[2017-06-07] MEDS: BUDESONIDE-FORMOTEROL 160/4.5 MCG INHALER INH SCH ×2 (07:54→20:20)
[2017-06-07] MEDS: cefTRIAXone INJ 1,000 MG in SODIUM CHLORIDE 0.9% INJ 100 ML IV SCH ×2 (07:55→20:18)
[2017-06-07] MEDS: INSULIN DETEMIR 100 UNITS/ML VIAL SQ SCH ×2 (07:55→20:34)
[2017-06-07] MEDS: CHLORHEXIDINE 0.12% (ORAL KIT) 15 ML CUP MT SCH ×2 (07:55→20:19)
[2017-06-07] MEDS: FAMOTIDINE 20 MG/2 ML VIAL IV PUSH SCH ×2 (07:56→20:19)
[2017-06-07] MEDS: DILTIAZEM-CD 120 MG CAP ER PO SCH (07:56)
[2017-06-07] MEDS: DOCUSATE SODIUM 50 MG/SENNA 8.6 MG TAB PO SCH ×2 (07:56→20:20)
[2017-06-07] MEDS: SODIUM CHLORIDE 0.9% FLUSH 10 ML FLUSH IV FLUSH SCH ×2 (07:57→20:33)
[2017-06-07] MEDS: TIOTROPIUM BROMIDE 18 MCG INH INH SCH (09:16)
--- NOTE | 2017-06-07 14:23 | HHI.PR ---
Subjective Remarks patient seen and evaluated in follow-up for respiratory failure and renal failure. Now on BiPAP as needed as she is still working hard to breathe Tolerating hemodialysis Care plan discussed with PLAY THERAPIST and RT Objective Vitals Vital Signs Date Time Temp Pulse Resp B/P (MAP) Pulse Ox O2 Delivery O2 Flow Rate FiO2 06/07/17 10:05 96 35 06/07/17 10:00 88 24 178/91 (120) 96 06/07/17 10:00 88 06/07/17 09:39 93 Nasal Cannula 2.00 06/07/17 09:00 88 24 168/75 (106) 94 06/07/17 08:00 96.7 82 20 177/102 (127) 95 06/07/17 08:00 82 06/07/17 07:40 99 35 06/07/17 07:00 66 21 156/76 (102) 97 06/07/17 06:02 64 21 141/66 (91) 98 06/07/17 06:00 64 06/07/17 05:02 68 22 143/67 (92) 96 06/07/17 04:25 95 35 06/07/17 04:02 96.7 70 20 144/68 (93) 95 06/07/17 04:00 70 06/07/17 03:02 70 23 128/59 (82) 93 06/07/17 02:02 72 23 123/49 (73) 94 06/07/17 02:00 72 06/07/17 01:02 74 23 141/71 (94) 94 06/07/17 00:55 93 35 06/07/17 00:02 98.3 74 24 130/56 (80) 95 06/07/17 00:00 74 06/06/17 23:02 82 23 150/58 (88) 95 06/06/17 22:02 88 26 153/66 (95) 94 06/06/17 22:00 65 06/06/17 21:35 94 35 06/06/17 21:02 90 22 152/70 (97) 93 06/06/17 20:02 98.1 88 25 150/76 (100) 94 06/06/17 20:00 88 06/06/17 19:15 94 Nasal Cannula 3.00 06/06/17 19:02 78 17 149/59 (89) 97 06/06/17 18:02 80 23 141/64 (89) 98 06/06/17 18:02 80 06/06/17 17:23 96 35 06/06/17 17:02 78 23 128/49 (75) 96 06/06/17 17:00 78 06/06/17 16:02 98.7 86 24 147/73 (97) 94 06/06/17 15:48 95 35 06/06/17 15:02 84 27 160/64 (96) 92 06/06/17 15:00 86 I/O 06/06/17 06/06/17 06/06/17 06/07/17 06/07/17 06/07/17 07:00 15:00 23:00 07:00 15:00 23:00 Intake Total 182 ml 340 ml 120 ml Output Total 200 ml 200 ml 100 ml Balance -200 ml 182 ml 140 ml 20 ml Intake Oral 240 ml 120 ml IV Total 182 ml 100 ml Output Urine Total 50 ml 0 ml Stool Total 200 ml 150 ml 100 ml # Voids 50 0 Result Diagram: 06/06/17 0434 06/06/17 0434 Imaging Last Impressions Chest X-Ray 06/06/17 0600 Signed Impressions: Service Date/Time: Tuesday, June 06, 2017 05:59 - CONCLUSION: No significant interval change Christ Feldman MD Renal Ultrasound 05/31/17 0000 Signed Impressions: Service Date/Time: Wednesday, May 31, 2017 08:54 - CONCLUSION: 1. Abnormal appearance to the left kidney with diminutive size and poor delineation of the parenchymal architecture. 2. No gross abnormality seen in the right kidney. Aramis Scott MD Objective Remarks Patient conversant but weak, on BiPAP and currently receiving hemodialysis GENERAL: This is a well-nourished, well-developed patient, in no apparent distress. CARDIOVASCULAR: Regular rate and rhythm without murmurs, gallops, or rubs. RESPIRATORY: No appreciable Rales, scattered wheezes in the bases GASTROINTESTINAL: Abdomen soft, non-tender, nondistended. Normal active bowel sounds MUSCULOSKELETAL: Extremities without clubbing, cyanosis, or edema. NEURO: Alert & Oriented x4 to person, place, time, situation. 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 History of diabetic nephropathy. Nephrology following, will need fistula eval (2) Community acquired pneumonia ICD Code: J18.9 - Pneumonia, unspecified organism Plan: Continue Rocephin IV for 8 total days, sputum 06/01 positive for Klebsiella, Escherichia coli Currently afebrile with no leukocytosis (3) Anxiety ICD Code: F41.9 - Anxiety disorder, unspecified Plan: Continue Xanax as needed (4) COPD exacerbation ICD Code: J44.1 - Chronic obstructive pulmonary disease with (acute) exacerbation Plan: Continue with bronchodilators, IV Solu-Medrol, BiPAP continues Pulmonary following Continues with Symbicort and Spiriva Status post extubation 06/05 Intubated due to acute hypercapnic respiratory failure (5) Paroxysmal atrial fibrillation ICD Code: I48.0 - Paroxysmal atrial fibrillation Plan: Currently in sinus rhythm (was on amiodarone drip), continue Cardizem Echocardiogram completed Problem Qualifiers (1) Acute renal failure: Qualified Codes: N17.9 - Acute kidney failure, unspecified Shari Islas MD Jun 07, 2017 14:23
[2017-06-07] MEDS: EPOETIN ALFA 10,000 UNITS/ML VIAL IV PUSH PRN (15:12)
[2017-06-07] MEDS: GENTAMICIN SULFATE (DIALYSIS USE ONLY) 20 MG/2 ML VIAL OTHER PRN (15:12)
[2017-06-07] MEDS: ATORVASTATIN 40 MG TAB PO SCH (20:20)
--- NOTE | 2017-06-07 20:23 | HHI.PR ---
Subjective Remarks 76 YOWF with VDRF,Ac renal Failure,DM, Met acidosis had HD No Fever Extubated Gets anxious Weaned to NC Good appetite Objective Vital Signs Vital Signs Date Time Temp Pulse Resp B/P (MAP) Pulse Ox O2 Delivery O2 Flow Rate FiO2 06/07/17 18:00 84 06/07/17 18:00 84 24 147/60 (89) 95 06/07/17 17:00 84 20 144/58 (86) 95 06/07/17 16:00 97.7 86 15 111/49 (69) 95 06/07/17 16:00 86 06/07/17 15:00 68 14 138/57 (84) 98 06/07/17 14:00 72 06/07/17 14:00 92 21 145/55 (85) 97 06/07/17 13:50 99 35 06/07/17 13:00 80 26 109/54 (72) 97 06/07/17 12:00 97.1 76 20 144/68 (93) 97 06/07/17 12:00 76 06/07/17 11:00 78 20 142/69 (93) 97 06/07/17 10:05 96 35 06/07/17 10:00 88 24 178/91 (120) 96 06/07/17 10:00 88 06/07/17 09:39 93 Nasal Cannula 2.00 06/07/17 09:00 88 24 168/75 (106) 94 06/07/17 08:00 96.7 82 20 177/102 (127) 95 06/07/17 08:00 82 06/07/17 07:40 99 35 06/07/17 07:00 66 21 156/76 (102) 97 06/07/17 06:02 64 21 141/66 (91) 98 06/07/17 06:00 64 06/07/17 05:02 68 22 143/67 (92) 96 06/07/17 04:25 95 35 06/07/17 04:02 96.7 70 20 144/68 (93) 95 06/07/17 04:00 70 06/07/17 03:02 70 23 128/59 (82) 93 06/07/17 02:02 72 23 123/49 (73) 94 06/07/17 02:00 72 06/07/17 01:02 74 23 141/71 (94) 94 06/07/17 00:55 93 35 06/07/17 00:02 98.3 74 24 130/56 (80) 95 06/07/17 00:00 74 06/06/17 23:02 82 23 150/58 (88) 95 06/06/17 22:02 88 26 153/66 (95) 94 06/06/17 22:00 65 06/06/17 21:35 94 35 06/06/17 21:02 90 22 152/70 (97) 93 I/O 06/06/17 06/06/17 06/06/17 06/07/17 06/07/17 06/07/17 07:00 15:00 23:00 07:00 15:00 23:00 Intake Total 182 ml 340 ml 120 ml 360 ml Output Total 200 ml 200 ml 100 ml 3700 ml Balance -200 ml 182 ml 140 ml 20 ml -3340 ml Intake Oral 240 ml 120 ml 360 ml IV Total 182 ml 100 ml Output Urine Total 50 ml 0 ml 0 ml Stool Total 200 ml 150 ml 100 ml 300 ml Hemodialysis 3400 ml # Voids 50 0 Result Diagram: 06/06/1743306/06/17433 Objective Remarks GENERAL: WBWN WF, On NC SKIN: Warm and dry. HEAD: Normocephalic. EYES: No scleral icterus. No injection or drainage. NECK: Supple, trachea midline. No JVD or lymphadenopathy. CARDIOVASCULAR: Regular rate and rhythm without murmurs, gallops, or rubs. RESPIRATORY: Breath sounds equal bilaterally. No accessory muscle use. GASTROINTESTINAL: Abdomen soft, non-tender, nondistended. MUSCULOSKELETAL: No cyanosis, or edema. BACK: Nontender without obvious deformity. No CVA tenderness. A/P Assessment and Plan VDRF, s/p Extubation COPD Ac renal Failure Metabolic acidosis DM Nicotine use PLAN: Encourage PO Aerosol nebs Supplement 02 Monitor BS BIPAP PRN Jac Hammonds MD Jun 07, 2017 20:23
--- NOTE | 2017-06-07 21:32 | HHI.NPPN ---
Subjective History of Present Illness 76-year-old female with past medical history of hypertension, diabetes mellitus, hyperlipidemia, ischemic heart disease, chronic kidney disease, chronic obstructive pulmonary disease was admitted because of generalized weakness, decreased urine output. I he was called to see the patient for elevated BUN and creatinine. The patient is known to me from before. She has been following with me in the office and last time I saw her was on May 04 and at that time her creatinine was 2.2 with given the GFR of 19-20 she had advanced stage IV chronic kidney disease most likely because of diabetic nephropathy. Additional Remarks Patient is alert, has SOB off and on, seen in the afternoon, on BIPAP and getting HD. Review of Systems General General Remarks Intubated and sedated. Objective Data Data 06/07/17 06/08/17 19:00 07:00 Intake Total 360 ml Output Total 3700 ml Balance -3340 ml Intake Oral 360 ml Output Urine Total 0 ml Stool Total 300 ml Hemodialysis 3400 ml Vital Signs Date Time Temp Pulse Resp B/P (MAP) Pulse Ox O2 Delivery O2 Flow Rate FiO2 06/07/17 18:00 84 06/07/17 18:00 84 24 147/60 (89) 95 06/07/17 17:00 84 20 144/58 (86) 95 06/07/17 16:00 97.7 86 15 111/49 (69) 95 06/07/17 16:00 86 06/07/17 15:00 68 14 138/57 (84) 98 06/07/17 14:00 72 06/07/17 14:00 92 21 145/55 (85) 97 06/07/17 13:50 99 35 06/07/17 13:00 80 26 109/54 (72) 97 06/07/17 12:00 97.1 76 20 144/68 (93) 97 06/07/17 12:00 76 06/07/17 11:00 78 20 142/69 (93) 97 06/07/17 10:05 96 35 06/07/17 10:00 88 24 178/91 (120) 96 06/07/17 10:00 88 06/07/17 09:39 93 Nasal Cannula 2.00 06/07/17 09:00 88 24 168/75 (106) 94 06/07/17 08:00 96.7 82 20 177/102 (127) 95 06/07/17 08:00 82 06/07/17 07:40 99 35 06/07/17 07:00 66 21 156/76 (102) 97 06/07/17 06:02 64 21 141/66 (91) 98 06/07/17 06:00 64 06/07/17 05:02 68 22 143/67 (92) 96 06/07/17 04:25 95 35 06/07/17 04:02 96.7 70 20 144/68 (93) 95 06/07/17 04:00 70 06/07/17 03:02 70 23 128/59 (82) 93 06/07/17 02:02 72 23 123/49 (73) 94 06/07/17 02:00 72 06/07/17 01:02 74 23 141/71 (94) 94 06/07/17 00:55 93 35 06/07/17 00:02 98.3 74 24 130/56 (80) 95 06/07/17 00:00 74 06/06/17 23:02 82 23 150/58 (88) 95 06/06/17 22:02 88 26 153/66 (95) 94 06/06/17 22:00 65 06/06/17 21:35 94 35 -: 06/06/17 0434 06/06/17 0434 Physical Exam General Appearance: No Acute Distress, Comfortable Eyes Eye Exam: Pupils Equal Throat Throat Exam: Oral Mucosa Morrison & Moist Neck Neck Exam: Neck Supple Pulmonary Resp Exam: Breath Sounds Equal, No Distress, Rhonchi, Decreased Bases, Diminished Breath Sounds, Poor Inspiratory Effort Cardiology CV Exam: Regular, Normal Sinus Rhythm Gastrointestinal/Abdomen GI Exam: Soft, Non-Tender, Bowel Sounds Present, Distended Extremeties Extremities Exam: Moderate Edema Neurologic Neuro Exam: Alert, Awake, Oriented Psychiatric Psych Exam: Appropriate Responses Assessment/Plan Assessment Summary: [place]/Acute Renal Failure, Hypertension, CKD Stage IV Problem List: (1) Chronic kidney disease (CKD) ICD Codes: N18.9 - Chronic kidney disease, unspecified (2) Oliguria ICD Codes: R34 - Anuria and oliguria (3) Diarrhea ICD Codes: R19.7 - Diarrhea, unspecified (4) Metabolic acidosis ICD Codes: E87.2 - Acidosis Status: Acute (5) Uremia ICD Codes: N19 - Unspecified kidney failure Status: Acute (6) Acute renal failure ICD Codes: N17.9 - Acute kidney failure, unspecified Status: Acute Plan Patient has advance stage 4 chronic kidney disease, approach stage 5. Started on HD. Patient will need AVF, when stable and fpc HD. Patient has COPD with high CO2 and developing SOB off and on. HD now and remove more fluid. BP is stable. Hgb. is low but stable, increase Epogen. Problem Qualifiers (1) Chronic kidney disease (CKD): Qualified Codes: N18.5 - Chronic kidney disease, stage 5 (2) Acute renal failure: Qualified Codes: N17.9 - Acute kidney failure, unspecified Lexy Lee MD Jun 07, 2017 21:32
[2017-06-08] VITALS (49 sets, daily range): BP systolic 151–195; BP diastolic 59–112; PULSE 62–86; RESP 17–43; TEMP 97.5–98.5; O2SAT 88–99
[2017-06-08] MEDS: LOW DOSE INSULIN NOVOLIN REGULAR SUPPLEMENTAL SCALE SQ SCH ×6 (00:01→20:28)
[2017-06-08] MEDS: ALPRAZolam 0.25 MG TAB PO PRN ×3 (01:04→20:36)
[2017-06-08] MEDS: CHLORHEXIDINE GLUCONATE 2 % 1 PACK (2 CLOTHS) TOP SCH (03:47)
[2017-06-08] MEDS: RESP: ALBUTEROL 2.5 MG/IPRATROPIUM 0.5 MG NEB (SCH) NEB ×4 (03:52→20:42)
[2017-06-08] MEDS: methylPREDNISolone SOD SUCC 40 MG/1 ML VIAL IV PUSH SCH ×3 (05:18→23:49)
[2017-06-08] MEDS: HEPARIN SODIUM - SQ 10,000 UNITS/ML VIAL SQ SCH ×3 (05:18→20:27)
[2017-06-08 05:35] LABS: CHLORIDE 99 MEQ/L (98-107); POTASSIUM 4.2 MEQ/L (3.5-5.1); SODIUM (NA) 141 MEQ/L (136-145)
[2017-06-08 05:51] LABS: ANION GAP 15 MEQ/L (5-15); BICARBONATE 27.4 MEQ/L (21.0-32.0); BLOOD UREA NITROGEN 77 MG/DL (7-18); GLOMERULAR FILTRATION RATE 6 ML/MIN (>89)
[2017-06-08] MEDS: CALCIUM ACETATE 667 MG CAP PO SCH ×3 (08:29→18:31)
[2017-06-08] MEDS: INSULIN DETEMIR 100 UNITS/ML VIAL SQ SCH ×2 (08:29→20:27)
[2017-06-08] MEDS: DILTIAZEM-CD 120 MG CAP ER PO SCH (08:30)
[2017-06-08] MEDS: FAMOTIDINE 20 MG/2 ML VIAL IV PUSH SCH ×2 (08:31→20:26)
[2017-06-08] MEDS: LORazepam 2 MG/ML VIAL IV PUSH PRN ×2 (08:31→23:50)
[2017-06-08] MEDS: cefTRIAXone INJ 1,000 MG in SODIUM CHLORIDE 0.9% INJ 100 ML IV SCH ×2 (08:33→20:15)
[2017-06-08] MEDS: BUDESONIDE-FORMOTEROL 160/4.5 MCG INHALER INH SCH ×2 (08:33→20:27)
[2017-06-08] MEDS: TIOTROPIUM BROMIDE 18 MCG INH INH SCH (08:34)
[2017-06-08] MEDS: VITAMIN B CMPLX/VITC/FOLIC AC CAP PO SCH (09:00)
[2017-06-08] MEDS: SODIUM CHLORIDE 0.9% FLUSH 10 ML FLUSH IV FLUSH SCH ×2 (09:00→20:26)
[2017-06-08] MEDS: DOCUSATE SODIUM 50 MG/SENNA 8.6 MG TAB PO SCH ×2 (09:00→20:27)
[2017-06-08 11:03] LABS: TRANSFERRIN IRON PROFILE 209 MG/DL (200-360)
[2017-06-08] MEDS: CHLORHEXIDINE 0.12% (ORAL KIT) 15 ML CUP MT SCH ×2 (12:45→20:15)
--- NOTE | 2017-06-08 13:25 | HHI.PR ---
Subjective Remarks Patient seen in room in follow-up for respiratory failure and for worsening renal failure. Calm. No new events today Discussed with CHIEF MEDICAL PHYSICIST Objective Vitals Vital Signs Date Time Temp Pulse Resp B/P (MAP) Pulse Ox O2 Delivery O2 Flow Rate FiO2 06/08/17 11:01 82 30 181/80 (113) 95 06/08/17 10:01 82 30 195/84 (121) 92 06/08/17 09:01 76 28 171/77 (108) 93 06/08/17 09:01 76 28 171/77 (108) 93 06/08/17 09:00 74 29 94 06/08/17 09:00 74 29 94 06/08/17 08:30 80 29 94 06/08/17 08:01 72 30 157/65 (95) 93 06/08/17 08:00 75 06/08/17 08:00 97.8 70 29 93 06/08/17 07:01 68 20 151/73 (99) 96 06/08/17 07:00 Nasal Cannula 3.00 06/08/17 06:01 62 20 158/80 (106) 98 06/08/17 06:00 66 06/08/17 05:30 96 Nasal Cannula 4.00 06/08/17 05:00 68 19 154/68 (96) 89 06/08/17 04:00 68 06/08/17 04:00 94 35 06/08/17 04:00 97.7 66 43 154/67 (96) 88 06/08/17 03:00 72 27 151/73 (99) 96 06/08/17 02:00 66 06/08/17 02:00 74 23 166/64 (98) 96 06/08/17 01:30 97 35 06/08/17 01:30 96 Bi-Pap 35 06/08/17 01:00 80 28 167/90 (115) 96 06/08/17 00:00 86 06/08/17 00:00 98.4 76 17 151/70 (97) 96 06/07/17 23:00 76 22 150/58 (88) 97 06/07/17 22:00 76 06/07/17 22:00 76 17 147/66 (93) 98 06/07/17 21:42 78 24 140/67 (91) 97 06/07/17 20:15 95 Nasal Cannula 3.00 06/07/17 20:00 98.9 82 24 140/60 (86) 97 06/07/17 20:00 93 Nasal Cannula 3.00 06/07/17 20:00 74 06/07/17 18:00 84 06/07/17 18:00 84 24 147/60 (89) 95 06/07/17 17:00 84 20 144/58 (86) 95 06/07/17 16:00 97.7 86 15 111/49 (69) 95 06/07/17 16:00 86 06/07/17 15:00 68 14 138/57 (84) 98 06/07/17 14:00 72 06/07/17 14:00 92 21 145/55 (85) 97 06/07/17 13:50 99 35 I/O 06/07/17 06/07/17 06/07/17 06/08/17 06/08/17 06/08/17 07:00 15:00 23:00 07:00 15:00 23:00 Intake Total 120 ml 460 ml 120 ml Output Total 100 ml 3700 ml 300 ml Balance 20 ml -3240 ml -180 ml Intake Oral 120 ml 360 ml 120 ml IV Total 100 ml Output Urine Total 0 ml 0 ml Stool Total 100 ml 300 ml 300 ml Hemodialysis 3400 ml # Voids 0 0 Result Diagram: 06/06/17 0434 06/08/17 0508 Objective Remarks Patient conversant feels stronger, on nasal cannula GENERAL: This is a well-nourished, well-developed patient, in no apparent distress. CARDIOVASCULAR: Regular rate and rhythm without murmurs, gallops, or rubs. RESPIRATORY: No appreciable Rales, scattered wheezes in the bases GASTROINTESTINAL: Abdomen soft, non-tender, nondistended. Normal active bowel sounds MUSCULOSKELETAL: Extremities without clubbing, cyanosis, or edema. NEURO: Alert & Oriented x4 to person, place, time, situation. 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 History of diabetic nephropathy. Nephrology following, will need fistula eval for home to continue long-term dialysis (2) Community acquired pneumonia ICD Code: J18.9 - Pneumonia, unspecified organism Plan: Continue Rocephin IV for 8 total days, sputum 06/01 positive for Klebsiella, Escherichia coli Currently afebrile with no leukocytosis (3) Anxiety ICD Code: F41.9 - Anxiety disorder, unspecified Plan: Continue Xanax as needed (4) COPD exacerbation ICD Code: J44.1 - Chronic obstructive pulmonary disease with (acute) exacerbation Plan: Improved Continue with bronchodilators, IV Solu-Medrol, BiPAP continues as needed Pulmonary following Continues with Symbicort and Spiriva Status post extubation 06/05 Intubated due to acute hypercapnic respiratory failure (5) Paroxysmal atrial fibrillation ICD Code: I48.0 - Paroxysmal atrial fibrillation Plan: Currently in sinus rhythm (was on amiodarone drip), continue Cardizem Echocardiogram completed (6) Anemia ICD Code: D64.9 - Anemia, unspecified Plan: Of chronic kidney disease, continue Epogen + iron (7) DM2 (diabetes mellitus, type 2) ICD Code: E11.9 - Type 2 diabetes mellitus without complications Plan: Sliding scale with Accu-Cheks before meals and at bedtime Diabetic/renal diet Assessment and Plan heparin q12 dvt ppx Discharge Planning Will need arrangements for hemodialysis Patient does not have a home O2 resume pt Problem Qualifiers (1) Acute renal failure: Qualified Codes: N17.9 - Acute kidney failure, unspecified Shari Islas MD Jun 08, 2017 13:25
[2017-06-08] MEDS: cloNIDine HCL 0.1 MG TAB PO PRN (16:59)
--- NOTE | 2017-06-08 20:05 | HHI.PR ---
Subjective Remarks 76 YOWF with VDRF,Ac renal Failure,DM, Met acidosis No Fever Extubated Gets anxious Good appetite Had good BM On BIPAP 35% Objective Vital Signs Vital Signs Date Time Temp Pulse Resp B/P (MAP) Pulse Ox O2 Delivery O2 Flow Rate FiO2 06/08/17 19:01 62 23 160/71 (100) 96 06/08/17 19:00 96 Bi-Pap 35 06/08/17 18:01 62 21 153/59 (90) 97 06/08/17 17:46 66 22 97 06/08/17 17:31 64 24 97 06/08/17 17:16 72 23 98 06/08/17 17:01 76 24 98 06/08/17 17:01 76 24 176/87 (116) 98 06/08/17 16:55 97 35 06/08/17 16:31 86 30 93 06/08/17 16:09 82 27 187/82 (117) 94 06/08/17 16:01 80 31 94 06/08/17 16:01 80 31 187/82 (117) 94 06/08/17 16:00 98.5 80 31 94 06/08/17 15:01 80 32 177/72 (107) 95 06/08/17 15:00 80 31 95 06/08/17 14:01 86 30 184/72 (109) 94 06/08/17 14:00 86 31 95 06/08/17 14:00 86 06/08/17 13:01 74 26 176/74 (108) 97 06/08/17 13:00 76 27 97 06/08/17 12:58 95 Nasal Cannula 3.00 06/08/17 12:01 64 24 153/73 (99) 97 06/08/17 12:00 64 25 98 06/08/17 11:40 97 35 06/08/17 11:01 82 30 181/80 (113) 95 06/08/17 11:01 82 30 181/80 (113) 95 06/08/17 11:00 80 28 96 06/08/17 10:01 82 30 195/84 (121) 92 06/08/17 10:00 72 06/08/17 09:30 95 Nasal Cannula 3.00 06/08/17 09:01 76 28 171/77 (108) 93 06/08/17 09:01 76 28 171/77 (108) 93 06/08/17 09:00 74 29 94 06/08/17 09:00 74 29 94 06/08/17 08:30 80 29 94 06/08/17 08:01 72 30 157/65 (95) 93 06/08/17 08:00 79 06/08/17 08:00 97.8 70 29 93 06/08/17 07:01 68 20 151/73 (99) 96 06/08/17 07:00 Nasal Cannula 3.00 06/08/17 06:01 62 20 158/80 (106) 98 06/08/17 06:00 66 06/08/17 05:30 96 Nasal Cannula 4.00 06/08/17 05:00 68 19 154/68 (96) 89 06/08/17 04:00 68 06/08/17 04:00 94 35 06/08/17 04:00 97.7 66 43 154/67 (96) 88 06/08/17 03:00 72 27 151/73 (99) 96 06/08/17 02:00 66 06/08/17 02:00 74 23 166/64 (98) 96 06/08/17 01:30 97 35 06/08/17 01:30 96 Bi-Pap 35 06/08/17 01:00 80 28 167/90 (115) 96 06/08/17 00:00 86 06/08/17 00:00 98.4 76 17 151/70 (97) 96 06/07/17 23:00 76 22 150/58 (88) 97 06/07/17 22:00 76 06/07/17 22:00 76 17 147/66 (93) 98 06/07/17 21:42 78 24 140/67 (91) 97 06/07/17 20:15 95 Nasal Cannula 3.00 I/O 06/07/17 06/07/17 06/07/17 06/08/17 06/08/17 06/08/17 07:00 15:00 23:00 07:00 15:00 23:00 Intake Total 120 ml 460 ml 120 ml 100 ml Output Total 100 ml 3700 ml 300 ml 1 ml Balance 20 ml -3240 ml -180 ml 100 ml -1 ml Intake Oral 120 ml 360 ml 120 ml IV Total 100 ml 100 ml Output Urine Total 0 ml 0 ml 1 ml Stool Total 100 ml 300 ml 300 ml Hemodialysis 3400 ml # Voids 0 0 Result Diagram: 06/06/17 0434 06/08/17 0508 Objective Remarks GENERAL: WBWN WF, On NC SKIN: Warm and dry. HEAD: Normocephalic. EYES: No scleral icterus. No injection or drainage. NECK: Supple, trachea midline. No JVD or lymphadenopathy. CARDIOVASCULAR: Regular rate and rhythm without murmurs, gallops, or rubs. RESPIRATORY: Breath sounds equal bilaterally. No accessory muscle use. GASTROINTESTINAL: Abdomen soft, non-tender, nondistended. MUSCULOSKELETAL: No cyanosis, or edema. BACK: Nontender without obvious deformity. No CVA tenderness. A/P Assessment and Plan VDRF, s/p Extubation COPD Ac renal Failure Metabolic acidosis DM Nicotine use PLAN: Encourage PO Aerosol nebs Supplement 02 Monitor BS BIPAP at night and prn Jac Hammonds MD Jun 08, 2017 20:05
[2017-06-08] MEDS: ATORVASTATIN 40 MG TAB PO SCH (20:26)
[2017-06-09] VITALS (32 sets, daily range): BP systolic 106–196; BP diastolic 52–86; PULSE 58–136; RESP 19–45; TEMP 97.4–98.2; O2SAT 91–100
[2017-06-09] MEDS: cloNIDine HCL 0.1 MG TAB PO PRN (01:05)
[2017-06-09] MEDS: CHLORHEXIDINE GLUCONATE 2 % 1 PACK (2 CLOTHS) TOP SCH (04:00)
[2017-06-09] MEDS: RESP: ALBUTEROL 2.5 MG/IPRATROPIUM 0.5 MG NEB (SCH) NEB ×4 (04:07→19:39)
[2017-06-09] MEDS: CHLORHEXIDINE 0.12% (ORAL KIT) 15 ML CUP MT SCH ×2 (08:00→20:00)
[2017-06-09] MEDS: DOCUSATE SODIUM 50 MG/SENNA 8.6 MG TAB PO SCH ×2 (09:00→20:26)
[2017-06-09] MEDS: DILTIAZEM-CD 120 MG CAP ER PO SCH (11:41)
[2017-06-09] MEDS: CALCIUM ACETATE 667 MG CAP PO SCH ×3 (11:42→17:34)
[2017-06-09] MEDS: HEPARIN SODIUM - SQ 10,000 UNITS/ML VIAL SQ SCH ×2 (11:43→20:24)
[2017-06-09] MEDS: cefTRIAXone INJ 1,000 MG in SODIUM CHLORIDE 0.9% INJ 100 ML IV SCH ×2 (11:44→20:23)
[2017-06-09] MEDS: methylPREDNISolone SOD SUCC 40 MG/1 ML VIAL IV PUSH SCH (11:44)
[2017-06-09] MEDS: INSULIN DETEMIR 100 UNITS/ML VIAL SQ SCH ×2 (11:44→20:27)
[2017-06-09] MEDS: LOW DOSE INSULIN NOVOLIN REGULAR SUPPLEMENTAL SCALE SQ SCH ×3 (11:45→20:27)
[2017-06-09] MEDS: TIOTROPIUM BROMIDE 18 MCG INH INH SCH (11:46)
[2017-06-09] MEDS: SODIUM CHLORIDE 0.9% FLUSH 10 ML FLUSH IV FLUSH SCH ×3 (11:46→20:25)
[2017-06-09] MEDS: FAMOTIDINE 20 MG/2 ML VIAL IV PUSH SCH ×2 (11:56→20:24)
[2017-06-09] MEDS: FERROUS SULFATE 325 MG (65 MG ELEMENTAL IRON) TAB PO SCH (11:59)
[2017-06-09] MEDS: BUDESONIDE-FORMOTEROL 160/4.5 MCG INHALER INH SCH ×2 (11:59→20:25)
[2017-06-09] MEDS: VITAMIN B CMPLX/VITC/FOLIC AC CAP PO SCH (11:59)
[2017-06-09] MEDS ORDERED: DILTIAZEM HCL 25 MG/5 ML VIAL IV PUSH ONE (13:30)
[2017-06-09] MEDS ORDERED: SODIUM CHLORIDE 0.9% FLUSH 10 ML FLUSH IV FLUSH PRN (13:30)
[2017-06-09] MEDS ORDERED: DILTIAZEM INJ 125 MG in SODIUM CHLORIDE 0.9% INJ 100 ML IV PRN (13:30)
--- NOTE | 2017-06-09 14:43 | HHI.PR ---
Subjective Remarks A. fib RVR has returned. Patient has been on by mouth Cardizem. Fatigue is present. Shortness of breath remains and she is on BiPAP. Objective Vital Signs Date Time Temp Pulse Resp B/P (MAP) Pulse Ox O2 Delivery O2 Flow Rate FiO2 06/09/17 13:38 99 35 06/09/17 13:00 136 28 121/66 (84) 95 06/09/17 13:00 136 06/09/17 13:00 Bi-Pap 35 06/09/17 12:00 97.4 132 20 115/68 (84) 100 06/09/17 12:00 132 06/09/17 11:25 100 35 06/09/17 11:00 72 21 106/64 (78) 97 06/09/17 10:00 72 21 132/59 (83) 97 06/09/17 10:00 72 06/09/17 09:00 80 45 132/63 (86) 96 06/09/17 08:45 98 35 06/09/17 08:01 72 24 175/71 (105) 97 06/09/17 08:00 73 06/09/17 07:15 96 Nasal Cannula 4.00 06/09/17 07:01 97.5 74 24 175/74 (107) 96 06/09/17 06:01 80 30 176/68 (104) 94 06/09/17 06:00 75 06/09/17 05:30 96 Nasal Cannula 4.00 06/09/17 05:01 62 20 132/58 (82) 97 06/09/17 04:09 97 35 06/09/17 04:01 98.2 64 20 139/61 (87) 91 06/09/17 04:00 67 06/09/17 03:01 60 35 129/53 (78) 96 06/09/17 02:01 70 24 160/78 (105) 98 06/09/17 02:00 63 06/09/17 01:01 80 22 196/86 (122) 98 06/09/17 00:03 76 26 179/71 (107) 99 06/09/17 00:01 98.2 76 30 182/78 (112) 100 06/09/17 00:00 80 06/08/17 23:01 76 26 176/112 (133) 98 06/08/17 22:01 74 31 178/76 (110) 99 06/08/17 22:00 96 Nasal Cannula 4.00 06/08/17 22:00 73 06/08/17 21:01 64 27 165/68 (100) 99 06/08/17 20:45 99 Ventilator 06/08/17 20:42 99 35 06/08/17 20:02 97.5 74 30 163/73 (103) 97 06/08/17 20:00 71 06/08/17 19:01 62 23 160/71 (100) 96 06/08/17 19:01 62 23 160/71 (100) 96 06/08/17 19:00 96 Bi-Pap 35 06/08/17 18:01 62 21 153/59 (90) 97 06/08/17 17:46 66 22 97 06/08/17 17:31 64 24 97 06/08/17 17:16 72 23 98 06/08/17 17:01 76 24 98 06/08/17 17:01 76 24 176/87 (116) 98 06/08/17 16:55 97 35 06/08/17 16:31 86 30 93 06/08/17 16:09 82 27 187/82 (117) 94 06/08/17 16:01 80 31 94 06/08/17 16:01 80 31 187/82 (117) 94 06/08/17 16:00 98.5 80 31 94 06/08/17 15:01 80 32 177/72 (107) 95 06/08/17 15:00 80 31 95 I/O 06/08/17 06/08/17 06/08/17 06/09/17 06/09/17 06/09/17 07:00 15:00 23:00 07:00 15:00 23:00 Intake Total 120 ml 100 ml 100 ml 240 ml Output Total 300 ml 1 ml 0 ml 3500 ml Balance -180 ml 100 ml 99 ml 240 ml -3500 ml Intake Oral 120 ml 240 ml IV Total 100 ml 100 ml Output Urine Total 1 ml 0 ml Stool Total 300 ml Hemodialysis 3500 ml # Voids 0 # Bowel Movements 6 Result Diagram: 06/06/17 0434 06/08/17 0508 Objective Remarks GENERAL: NAD, A&Ox3 HEAD: Normocephalic. NECK: Supple, trachea midline. No lymphadenopathy. EYES: No scleral icterus. No injection or drainage. CARDIOVASCULAR: Irregularly irregular rate with tachycardic rhythm, without murmurs, gallops, or rubs. RESPIRATORY: Breath sounds equal bilaterally. No accessory muscle use. GASTROINTESTINAL: Abdomen soft, non-tender, nondistended. MUSCULOSKELETAL: No cyanosis, or edema. SKIN: Warm and dry. NEURO: No focal neurological deficitis. A/P Problem List: (1) Atrial fibrillation with RVR ICD Code: I48.91 - Unspecified atrial fibrillation (2) COPD exacerbation ICD Code: J44.1 - Chronic obstructive pulmonary disease with (acute) exacerbation (3) Acute renal failure ICD Code: N17.9 - Acute kidney failure, unspecified Status: Acute (4) Chronic kidney disease (CKD) ICD Code: N18.9 - Chronic kidney disease, unspecified (5) Paroxysmal atrial fibrillation ICD Code: I48.0 - Paroxysmal atrial fibrillation Assessment and Plan Assessment and plan 76-year-old female admitted secondary to pneumonia with acute renal failure A. fib RVR Baseline paroxysmal A. fib Begin IV diltiazem drip Following ICU Amiodarone to be considered as a second line option Community-acquired pneumonia COPD exacerbation Likely contributory to exacerbation of A. fib Continue Rocephin Culture showed Klebsiella and Escherichia coli Status post extubation 06/06/17 Continue oxygen as needed Continue BiPAP as needed Wean BiPAP as tolerated Continue nebulized treatments both scheduled and as needed Continue Spiriva Continue Symbicort Acute renal failure on chronic kidney disease Continue on hemodialysis Nephrology following Planning for fistula for long-term dialysis Gen. anxiety disorder Continue as needed Xanax Anemia Related to chronic kidney disease Continue Epogen Continue iron Diabetes mellitus type 2 Follow blood sugars Insulin sliding scale Diabetic diet DVT Prophylaxis Heparin Discharge Planning Home O2 anticipated Outpatient Dialysis anticipated Problem Qualifiers (1) Acute renal failure: Qualified Codes: N17.9 - Acute kidney failure, unspecified (2) Chronic kidney disease (CKD): Qualified Codes: N18.5 - Chronic kidney disease, stage 5 Laci Ibarra MD Jun 09, 2017 14:43
--- NOTE | 2017-06-09 14:57 | HHI.NPPN ---
Subjective History of Present Illness 76-year-old female with past medical history of hypertension, diabetes mellitus, hyperlipidemia, ischemic heart disease, chronic kidney disease, chronic obstructive pulmonary disease was admitted because of generalized weakness, decreased urine output. I he was called to see the patient for elevated BUN and creatinine. The patient is known to me from before. She has been following with me in the office and last time I saw her was on May 04 and at that time her creatinine was 2.2 with given the GFR of 19-20 she had advanced stage IV chronic kidney disease most likely because of diabetic nephropathy. Additional Remarks Patient is alert, has SOB off and on, seen after HD, now with nasal cannula. Review of Systems General General Remarks Intubated and sedated. Objective Data Data 06/09/17 06/10/17 19:00 07:00 Output Total 3500 ml Balance -3500 ml Hemodialysis 3500 ml Vital Signs Date Time Temp Pulse Resp B/P (MAP) Pulse Ox O2 Delivery O2 Flow Rate FiO2 06/09/17 14:00 98 21 116/52 (73) 97 06/09/17 14:00 98 06/09/17 13:38 99 35 06/09/17 13:00 136 28 121/66 (84) 95 06/09/17 13:00 136 06/09/17 13:00 Bi-Pap 35 06/09/17 12:00 97.4 132 20 115/68 (84) 100 06/09/17 12:00 132 06/09/17 11:25 100 35 06/09/17 11:00 72 21 106/64 (78) 97 06/09/17 10:00 72 21 132/59 (83) 97 06/09/17 10:00 72 06/09/17 09:00 80 45 132/63 (86) 96 06/09/17 08:45 98 35 06/09/17 08:01 72 24 175/71 (105) 97 06/09/17 08:00 73 06/09/17 07:15 96 Nasal Cannula 4.00 06/09/17 07:01 97.5 74 24 175/74 (107) 96 06/09/17 06:01 80 30 176/68 (104) 94 06/09/17 06:00 75 06/09/17 05:30 96 Nasal Cannula 4.00 06/09/17 05:01 62 20 132/58 (82) 97 06/09/17 04:09 97 35 06/09/17 04:01 98.2 64 20 139/61 (87) 91 06/09/17 04:00 67 06/09/17 03:01 60 35 129/53 (78) 96 06/09/17 02:01 70 24 160/78 (105) 98 06/09/17 02:00 63 06/09/17 01:01 80 22 196/86 (122) 98 06/09/17 00:03 76 26 179/71 (107) 99 06/09/17 00:01 98.2 76 30 182/78 (112) 100 06/09/17 00:00 80 06/08/17 23:01 76 26 176/112 (133) 98 06/08/17 22:01 74 31 178/76 (110) 99 06/08/17 22:00 96 Nasal Cannula 4.00 06/08/17 22:00 73 06/08/17 21:01 64 27 165/68 (100) 99 06/08/17 20:45 99 Ventilator 06/08/17 20:42 99 35 06/08/17 20:02 97.5 74 30 163/73 (103) 97 06/08/17 20:00 71 06/08/17 19:01 62 23 160/71 (100) 96 06/08/17 19:01 62 23 160/71 (100) 96 06/08/17 19:00 96 Bi-Pap 35 06/08/17 18:01 62 21 153/59 (90) 97 06/08/17 17:46 66 22 97 06/08/17 17:31 64 24 97 06/08/17 17:16 72 23 98 06/08/17 17:01 76 24 98 06/08/17 17:01 76 24 176/87 (116) 98 06/08/17 16:55 97 35 06/08/17 16:31 86 30 93 06/08/17 16:09 82 27 187/82 (117) 94 06/08/17 16:01 80 31 94 06/08/17 16:01 80 31 187/82 (117) 94 06/08/17 16:00 98.5 80 31 94 06/08/17 15:01 80 32 177/72 (107) 95 06/08/17 15:00 80 31 95 -: 06/06/17 0434 06/08/17 0508 Physical Exam General Appearance: No Acute Distress, Comfortable Eyes Eye Exam: Pupils Equal Throat Throat Exam: Oral Mucosa Social Circle & Moist Neck Neck Exam: Neck Supple Pulmonary Resp Exam: Breath Sounds Equal, No Distress, Rhonchi, Decreased Bases, Diminished Breath Sounds, Poor Inspiratory Effort Cardiology CV Exam: Regular, Normal Sinus Rhythm Gastrointestinal/Abdomen GI Exam: Soft, Non-Tender, Bowel Sounds Present, Distended Extremeties Extremities Exam: Moderate Edema Neurologic Neuro Exam: Alert, Awake, Oriented Psychiatric Psych Exam: Appropriate Responses Assessment/Plan Assessment Summary: [place]/Acute Renal Failure, Hypertension, CKD Stage IV Problem List: (1) Chronic kidney disease (CKD) ICD Codes: N18.9 - Chronic kidney disease, unspecified (2) Oliguria ICD Codes: R34 - Anuria and oliguria (3) Diarrhea ICD Codes: R19.7 - Diarrhea, unspecified (4) Metabolic acidosis ICD Codes: E87.2 - Acidosis Status: Acute (5) Uremia ICD Codes: N19 - Unspecified kidney failure Status: Acute (6) Acute renal failure ICD Codes: N17.9 - Acute kidney failure, unspecified Status: Acute Plan Patient has advance stage 4 chronic kidney disease, approach stage 5. Started on HD. Patient will need AVF, when stable and exterminator HD. Patient has COPD with high CO2 and developing SOB off and on. HD now and remove more fluid. BP is stable. Hgb. is low but stable,on Epogen. HD done and 3.5 liters removed. Problem Qualifiers (1) Chronic kidney disease (CKD): Qualified Codes: N18.5 - Chronic kidney disease, stage 5 (2) Acute renal failure: Qualified Codes: N17.9 - Acute kidney failure, unspecified Lexy Lee MD Jun 09, 2017 14:57
--- NOTE | 2017-06-09 18:03 | HHI.PR ---
Subjective Remarks 76 YOWF with VDRF,Ac renal Failure,DM, Met acidosis No Fever Extubated Gets anxious Good appetite Had good BM On BIPAP 35% Gets anxious had HD Objective Vital Signs Vital Signs Date Time Temp Pulse Resp B/P (MAP) Pulse Ox O2 Delivery O2 Flow Rate FiO2 06/09/17 17:00 96 Nasal Cannula 4.00 06/09/17 16:00 97.4 58 19 139/59 (85) 100 06/09/17 16:00 58 06/09/17 16:00 98 35 06/09/17 15:00 60 06/09/17 14:00 98 21 116/52 (73) 97 06/09/17 14:00 98 06/09/17 13:38 99 35 06/09/17 13:00 136 28 121/66 (84) 95 06/09/17 13:00 136 06/09/17 13:00 Bi-Pap 35 06/09/17 12:00 97.4 132 20 115/68 (84) 100 06/09/17 12:00 132 06/09/17 11:25 100 35 06/09/17 11:00 72 21 106/64 (78) 97 06/09/17 10:00 72 21 132/59 (83) 97 06/09/17 10:00 72 06/09/17 09:00 80 45 132/63 (86) 96 06/09/17 08:45 98 35 06/09/17 08:01 72 24 175/71 (105) 97 06/09/17 08:00 73 06/09/17 07:15 96 Nasal Cannula 4.00 06/09/17 07:01 97.5 74 24 175/74 (107) 96 06/09/17 06:01 80 30 176/68 (104) 94 06/09/17 06:00 75 06/09/17 05:30 96 Nasal Cannula 4.00 06/09/17 05:01 62 20 132/58 (82) 97 06/09/17 04:09 97 35 06/09/17 04:01 98.2 64 20 139/61 (87) 91 06/09/17 04:00 67 06/09/17 03:01 60 35 129/53 (78) 96 06/09/17 02:01 70 24 160/78 (105) 98 06/09/17 02:00 63 11/3/17 01:01 80 22 196/86 (122) 98 06/09/17 00:03 76 26 179/71 (107) 99 06/09/17 00:01 98.2 76 30 182/78 (112) 100 06/09/17 00:00 80 06/08/17 23:01 76 26 176/112 (133) 98 06/08/17 22:01 74 31 178/76 (110) 99 06/08/17 22:00 96 Nasal Cannula 4.00 06/08/17 22:00 73 06/08/17 21:01 64 27 165/68 (100) 99 06/08/17 20:45 99 Ventilator 06/08/17 20:42 99 35 06/08/17 20:02 97.5 74 30 163/73 (103) 97 06/08/17 20:00 71 06/08/17 19:01 62 23 160/71 (100) 96 06/08/17 19:01 62 23 160/71 (100) 96 06/08/17 19:00 96 Bi-Pap 35 I/O 06/08/17 06/08/17 06/08/17 06/09/17 06/09/17 06/09/17 07:00 15:00 23:00 07:00 15:00 23:00 Intake Total 120 ml 100 ml 100 ml 240 ml Output Total 300 ml 1 ml 0 ml 3500 ml Balance -180 ml 100 ml 99 ml 240 ml -3500 ml Intake Oral 120 ml 240 ml IV Total 100 ml 100 ml Output Urine Total 1 ml 0 ml Stool Total 300 ml Hemodialysis 3500 ml # Voids 0 # Bowel Movements 6 Result Diagram: 06/06/17 0434 06/08/17 0508 Objective Remarks GENERAL: WBWN WF, On NC SKIN: Warm and dry. HEAD: Normocephalic. EYES: No scleral icterus. No injection or drainage. NECK: Supple, trachea midline. No JVD or lymphadenopathy. CARDIOVASCULAR: Regular rate and rhythm without murmurs, gallops, or rubs. RESPIRATORY: Breath sounds equal bilaterally. No accessory muscle use. GASTROINTESTINAL: Abdomen soft, non-tender, nondistended. MUSCULOSKELETAL: No cyanosis, or edema. BACK: Nontender without obvious deformity. No CVA tenderness. A/P Assessment and Plan VDRF, s/p Extubation COPD Ac renal Failure Metabolic acidosis DM Nicotine use PLAN: Encourage PO Aerosol nebs Supplement 02 Monitor BS BIPAP at night and prn Duoenebs qid. Jac Hammonds MD Jun 09, 2017 18:03
[2017-06-09] MEDS: ATORVASTATIN 40 MG TAB PO SCH (20:24)
[2017-06-10] VITALS (21 sets, daily range): BP systolic 132–174; BP diastolic 52–85; PULSE 58–79; RESP 15–31; TEMP 97.5–99.5; O2SAT 93–100
[2017-06-10] MEDS: methylPREDNISolone SOD SUCC 40 MG/1 ML VIAL IV PUSH SCH ×2 (01:10→12:29)
[2017-06-10] MEDS: CHLORHEXIDINE GLUCONATE 2 % 1 PACK (2 CLOTHS) TOP SCH (04:00)
[2017-06-10 06:02] LABS: AUTOMATED NEUTROPHIL # 11.5 TH/MM3 (1.8-7.7); BASOPHIL % 0.1 % (0.0-2.0); HEMATOCRIT 27.1 % (35.0-46.0); LYMPH % 8.3 % (9.0-44.0); LYMPHOCYTE # 1.2 TH/MM3 (1.0-4.8); MEAN CELL VOLUME 79.8 FL (80.0-100.0); MEAN CORPUSCULAR HEMOGLOBIN 25.7 PG (27.0-34.0); MEAN CORPUSCULAR HGB CONC 32.2 % (32.0-36.0); MONO % 9.1 % (0.0-8.0); NEUT % 82.5 % (16.0-70.0); PLATELET COUNT 257 TH/MM3 (150-450); RED CELL DISTRIBUTION WIDTH 16.7 % (11.6-17.2)
[2017-06-10 06:04] LABS: HEMO FLAGS AUTO DIFF
[2017-06-10 06:14] LABS: CHLORIDE 105 MEQ/L (98-107); POTASSIUM 4.3 MEQ/L (3.5-5.1); SODIUM (NA) 149 MEQ/L (136-145)
[2017-06-10 06:18] LABS: ANION GAP 16 MEQ/L (5-15); BICARBONATE 28.3 MEQ/L (21.0-32.0)
[2017-06-10 06:21] LABS: OVALOCYTES 1+ (NORMAL); PLATELET ESTIMATE SMEAR NORMAL (NORMAL); PLATELET MORPHOLOGY NORMAL (NORMAL); SCAN/DIFF AUTO DIFF CONFIRMED
[2017-06-10 06:23] LABS: ALT (GPT) 56 U/L (10-53); AST (GOT) 18 U/L (15-37); BLOOD UREA NITROGEN 100 MG/DL (7-18); GLOMERULAR FILTRATION RATE 6 ML/MIN (>89); TOTAL BILIRUBIN ADULT 0.3 MG/DL (0.2-1.0)
[2017-06-10 06:45] LABS: ALKALINE PHOSPHATASE 73 U/L (45-117)
[2017-06-10] MEDS: RESP: ALBUTEROL 2.5 MG/IPRATROPIUM 0.5 MG NEB (SCH) NEB ×3 (07:36→19:49)
[2017-06-10] MEDS: cefTRIAXone INJ 1,000 MG in SODIUM CHLORIDE 0.9% INJ 100 ML IV SCH ×2 (08:00→20:18)
[2017-06-10] MEDS: CHLORHEXIDINE 0.12% (ORAL KIT) 15 ML CUP MT SCH ×2 (08:00→20:16)
[2017-06-10] MEDS: INSULIN DETEMIR 100 UNITS/ML VIAL SQ SCH ×2 (08:12→21:01)
[2017-06-10] MEDS: CALCIUM ACETATE 667 MG CAP PO SCH ×3 (09:30→18:00)
[2017-06-10] MEDS: DILTIAZEM-CD 240 MG CAP ER PO SCH (09:30)
[2017-06-10] MEDS: DOCUSATE SODIUM 50 MG/SENNA 8.6 MG TAB PO SCH ×2 (09:30→20:20)
[2017-06-10] MEDS: FERROUS SULFATE 325 MG (65 MG ELEMENTAL IRON) TAB PO SCH (09:30)
[2017-06-10] MEDS: FAMOTIDINE 20 MG/2 ML VIAL IV PUSH SCH ×2 (09:31→20:20)
[2017-06-10] MEDS: HEPARIN SODIUM - SQ 10,000 UNITS/ML VIAL SQ SCH ×2 (09:31→20:19)
[2017-06-10] MEDS: TIOTROPIUM BROMIDE 18 MCG INH INH SCH (09:33)
[2017-06-10] MEDS: VITAMIN B CMPLX/VITC/FOLIC AC CAP PO SCH (09:33)
[2017-06-10] MEDS: BUDESONIDE-FORMOTEROL 160/4.5 MCG INHALER INH SCH ×2 (09:33→20:18)
[2017-06-10] MEDS: LOW DOSE INSULIN NOVOLIN REGULAR SUPPLEMENTAL SCALE SQ SCH ×4 (09:34→21:03)
[2017-06-10] MEDS: SODIUM CHLORIDE 0.9% FLUSH 10 ML FLUSH IV FLUSH SCH ×4 (12:32→20:21)
--- NOTE | 2017-06-10 13:41 | HHI.PR ---
Subjective Remarks A. fib RVR resolved today. A. fib RVR resolved with Cardizem drip. Transitioned back to by mouth again today. Complaints of diarrhea. C. difficile is negative. Objective Vital Signs Date Time Temp Pulse Resp B/P (MAP) Pulse Ox O2 Delivery O2 Flow Rate FiO2 06/10/17 10:00 78 27 163/66 (98) 97 06/10/17 10:00 78 06/10/17 09:00 100 Nasal Cannula 4.00 06/10/17 09:00 64 21 149/67 (94) 98 06/10/17 08:00 58 06/10/17 08:00 99.5 58 18 147/59 (88) 97 06/10/17 07:38 93 35 06/10/17 07:00 Bi-Pap 35 06/10/17 04:25 99 35 06/10/17 04:00 98.4 74 24 132/52 (78) 94 06/10/17 03:00 68 15 141/66 (91) 98 06/10/17 02:00 64 21 147/64 (91) 99 06/10/17 01:55 99 35 06/10/17 01:00 97.5 64 21 151/67 (95) 100 06/10/17 00:15 99 35 06/10/17 00:00 100 Bi-Pap 35 06/09/17 23:00 74 06/09/17 22:00 68 24 140/67 (91) 100 06/09/17 20:00 72 06/09/17 20:00 97.4 68 28 134/63 (86) 100 06/09/17 19:38 98 Nasal Cannula 4.00 06/09/17 19:00 97 Nasal Cannula 4.00 06/09/17 17:00 96 Nasal Cannula 4.00 06/09/17 16:00 97.4 58 19 139/59 (85) 100 06/09/17 16:00 58 06/09/17 16:00 98 35 06/09/17 15:00 60 06/09/17 14:00 98 21 116/52 (73) 97 06/09/17 14:00 98 I/O 06/09/17 06/09/17 06/09/17 06/10/17 06/10/17 06/10/17 07:00 15:00 23:00 07:00 15:00 23:00 Intake Total 240 ml 100 ml 240 ml Output Total 0 ml 3500 ml Balance 240 ml -3400 ml 240 ml Intake Oral 240 ml 240 ml IV Total 100 ml Output Urine Total 0 ml Hemodialysis 3500 ml # Voids 0 # Bowel Movements 6 3 2 Result Diagram: 06/10/17 0550 06/10/17 0550 Objective Remarks GENERAL: NAD, A&Ox3 HEAD: Normocephalic. NECK: Supple, trachea midline. No lymphadenopathy. EYES: No scleral icterus. No injection or drainage. CARDIOVASCULAR: Irregularly irregular rate with tachycardic rhythm, without murmurs, gallops, or rubs. RESPIRATORY: Breath sounds equal bilaterally. No accessory muscle use. GASTROINTESTINAL: Abdomen soft, non-tender, nondistended. MUSCULOSKELETAL: No cyanosis, or edema. SKIN: Warm and dry. NEURO: No focal neurological deficitis. A/P Problem List: (1) Atrial fibrillation with RVR ICD Code: I48.91 - Unspecified atrial fibrillation (2) COPD exacerbation ICD Code: J44.1 - Chronic obstructive pulmonary disease with (acute) exacerbation (3) Acute renal failure ICD Code: N17.9 - Acute kidney failure, unspecified Status: Acute (4) Chronic kidney disease (CKD) ICD Code: N18.9 - Chronic kidney disease, unspecified (5) Paroxysmal atrial fibrillation ICD Code: I48.0 - Paroxysmal atrial fibrillation Assessment and Plan Assessment and plan 76-year-old female admitted secondary to pneumonia with acute renal failure. Start Imodium for diarrhea. Monitor for 24 hours on by mouth Cardizem before consideration of transfer out of ICU. A. fib RVR Baseline paroxysmal A. fib Transition off IV diltiazem drip Continue by mouth Cardizem a higher dosing Following ICU Amiodarone to be considered as a second line option Community-acquired pneumonia COPD exacerbation Likely contributory to exacerbation of A. fib Continue Rocephin Culture showed Klebsiella and Escherichia coli Status post extubation 06/06/17 Continue oxygen as needed Continue BiPAP as needed Wean BiPAP as tolerated Continue nebulized treatments both scheduled and as needed Continue Spiriva Continue Symbicort Acute renal failure on chronic kidney disease Continue on hemodialysis Nephrology following Planning for fistula for long-term dialysis Gen. anxiety disorder Continue as needed Xanax Anemia Related to chronic kidney disease Continue Epogen Continue iron Diabetes mellitus type 2 Follow blood sugars Insulin sliding scale Diabetic diet DVT Prophylaxis Heparin Discharge Planning Home O2 anticipated Outpatient Dialysis anticipated Problem Qualifiers (1) Acute renal failure: Qualified Codes: N17.9 - Acute kidney failure, unspecified (2) Chronic kidney disease (CKD): Qualified Codes: N18.5 - Chronic kidney disease, stage 5 Laci Ibarra MD Jun 10, 2017 13:41
[2017-06-10] MEDS: LOPERAMIDE HCL SOLN 2 MG/10 ML UDC PO PRN ×3 (14:23→20:18)
--- NOTE | 2017-06-10 18:30 | HHI.PR ---
Subjective Remarks ALERT LESS SOB ON O2 Objective Vital Signs Date Time Temp Pulse Resp B/P (MAP) Pulse Ox O2 Delivery O2 Flow Rate FiO2 06/10/17 17:00 74 31 150/83 (105) 93 06/10/17 16:00 98.7 74 28 146/69 (94) 96 06/10/17 15:00 68 06/10/17 15:00 62 20 150/66 (94) 98 06/10/17 14:00 72 26 157/63 (94) 95 06/10/17 13:00 70 27 159/76 (103) 95 06/10/17 12:00 72 23 160/67 (98) 97 06/10/17 10:00 78 27 163/66 (98) 97 06/10/17 10:00 78 06/10/17 09:00 100 Nasal Cannula 4.00 06/10/17 09:00 64 21 149/67 (94) 98 06/10/17 08:00 58 06/10/17 08:00 99.5 58 18 147/59 (88) 97 06/10/17 07:38 93 35 06/10/17 07:00 Bi-Pap 35 06/10/17 04:25 99 35 06/10/17 04:00 98.4 74 24 132/52 (78) 94 06/10/17 03:00 68 15 141/66 (91) 98 06/10/17 02:00 64 21 147/64 (91) 99 06/10/17 01:55 99 35 06/10/17 01:00 97.5 64 21 151/67 (95) 100 06/10/17 00:15 99 35 06/10/17 00:00 100 Bi-Pap 35 06/09/17 23:00 74 06/09/17 22:00 68 24 140/67 (91) 100 06/09/17 20:00 72 06/09/17 20:00 97.4 68 28 134/63 (86) 100 06/09/17 19:38 98 Nasal Cannula 4.00 06/09/17 19:00 97 Nasal Cannula 4.00 I/O 06/09/17 06/09/17 06/09/17 06/10/17 06/10/17 06/10/17 07:00 15:00 23:00 07:00 15:00 23:00 Intake Total 240 ml 100 ml 240 ml 100 ml Output Total 0 ml 3500 ml Balance 240 ml -3400 ml 240 ml 100 ml Intake Oral 240 ml 240 ml IV Total 100 ml 100 ml Output Urine Total 0 ml Hemodialysis 3500 ml # Voids 0 # Bowel Movements 6 3 2 Result Diagram: 06/10/1750 06/10/17549 Objective Remarks GENERAL: SKIN: Warm and dry. HEAD: Atraumatic. Normocephalic. EYES: Pupils equal and round. No scleral icterus. No injection or drainage. ENT: No nasal bleeding or discharge. Mucous membranes pink and moist. NECK: Trachea midline. No JVD. CARDIOVASCULAR: Regular rate and rhythm. RESPIRATORY: No accessory muscle use. Clear to auscultation. Breath sounds equal bilaterally. GASTROINTESTINAL: Abdomen soft, non-tender, nondistended. Hepatic and splenic margins not palpable. MUSCULOSKELETAL: Extremities without clubbing, cyanosis, or edema. No obvious deformities. NEUROLOGICAL: Awake and alert. No obvious cranial nerve deficits. Motor grossly within normal limits. Five out of 5 muscle strength in the arms and legs. Normal speech. PSYCHIATRIC: Appropriate mood and affect; insight and judgment normal. Assessment and Plan Assessment and Plan ASS RESPIRATORY FAILURE COPD EXACERBATION PLAN O2/BIPAP BRONCHODILATOR THERAPY INCREASE ACTIVITY Shayla Mcguire MD Jun 10, 2017 18:30
[2017-06-10] MEDS: ALPRAZolam 0.25 MG TAB PO PRN (20:20)
[2017-06-10] MEDS: ATORVASTATIN 40 MG TAB PO SCH (20:20)
[2017-06-10] MEDS ORDERED: INSULIN HUMAN REGULAR 1,000 UNITS/10 ML VIAL SQ ONE (22:00)
[2017-06-11] VITALS (20 sets, daily range): BP systolic 142–182; BP diastolic 57–93; PULSE 62–84; RESP 13–40; TEMP 97.3–99.2; O2SAT 93–100
[2017-06-11] MEDS: methylPREDNISolone SOD SUCC 40 MG/1 ML VIAL IV PUSH SCH ×2 (00:03→12:18)
[2017-06-11] MEDS: CHLORHEXIDINE GLUCONATE 2 % 1 PACK (2 CLOTHS) TOP SCH (04:00)
[2017-06-11 05:54] LABS: HEMATOCRIT 30.6 % (35.0-46.0); MEAN CELL VOLUME 80.8 FL (80.0-100.0); MEAN CORPUSCULAR HEMOGLOBIN 25.4 PG (27.0-34.0); MEAN CORPUSCULAR HGB CONC 31.4 % (32.0-36.0); PLATELET COUNT 270 TH/MM3 (150-450); RED BLOOD COUNT 3.79 MIL/MM3 (4.00-5.30); REVIEW FLAG FINAL
[2017-06-11 06:13] LABS: BICARBONATE 24.8 MEQ/L (21.0-32.0); POTASSIUM 4.9 MEQ/L (3.5-5.1)
[2017-06-11] MEDS: RESP: ALBUTEROL 2.5 MG/IPRATROPIUM 0.5 MG NEB (SCH) NEB ×3 (07:42→20:44)
[2017-06-11] MEDS: CHLORHEXIDINE 0.12% (ORAL KIT) 15 ML CUP MT SCH ×2 (08:00→20:38)
[2017-06-11] MEDS: LOPERAMIDE HCL SOLN 2 MG/10 ML UDC PO PRN (08:25)
[2017-06-11] MEDS: cefTRIAXone INJ 1,000 MG in SODIUM CHLORIDE 0.9% INJ 100 ML IV SCH ×2 (08:26→20:38)
[2017-06-11] MEDS: HEPARIN SODIUM - SQ 10,000 UNITS/ML VIAL SQ SCH ×2 (08:27→20:40)
[2017-06-11] MEDS: FAMOTIDINE 20 MG/2 ML VIAL IV PUSH SCH ×2 (08:27→20:40)
[2017-06-11] MEDS: CALCIUM ACETATE 667 MG CAP PO SCH ×3 (08:27→18:00)
[2017-06-11] MEDS: TIOTROPIUM BROMIDE 18 MCG INH INH SCH (08:27)
[2017-06-11] MEDS: DOCUSATE SODIUM 50 MG/SENNA 8.6 MG TAB PO SCH ×2 (08:28→20:40)
[2017-06-11] MEDS: DILTIAZEM-CD 240 MG CAP ER PO SCH (08:28)
[2017-06-11] MEDS: LOW DOSE INSULIN NOVOLIN REGULAR SUPPLEMENTAL SCALE SQ SCH ×4 (08:28→20:42)
[2017-06-11] MEDS: FERROUS SULFATE 325 MG (65 MG ELEMENTAL IRON) TAB PO SCH (08:28)
[2017-06-11] MEDS: BUDESONIDE-FORMOTEROL 160/4.5 MCG INHALER INH SCH ×2 (08:32→20:39)
[2017-06-11] MEDS: VITAMIN B CMPLX/VITC/FOLIC AC CAP PO SCH (08:32)
[2017-06-11] MEDS: INSULIN DETEMIR 100 UNITS/ML VIAL SQ SCH ×2 (09:00→20:41)
--- NOTE | 2017-06-11 10:53 | HHI.PR ---
Subjective Remarks Mrs. Wilkinson is doing well today. She's had no recurrence of A. fib RVR on by mouth long-acting diltiazem. Medically stable for transfer out of ICU today. Objective Vital Signs Date Time Temp Pulse Resp B/P (MAP) Pulse Ox O2 Delivery O2 Flow Rate FiO2 06/11/17 07:44 100 Nasal Cannula 4.00 06/11/17 04:00 62 18 152/63 (92) 96 06/11/17 04:00 97.5 62 18 152/63 (92) 96 06/11/17 03:00 64 18 142/57 (85) 98 06/11/17 00:00 97.8 78 28 158/62 (94) 97 06/10/17 23:00 79 06/10/17 21:00 78 28 174/85 (114) 98 06/10/17 20:02 98.3 72 27 168/74 (105) 100 06/10/17 19:49 98 Nasal Cannula 4.00 06/10/17 19:00 6 Nasal Cannula 4.00 06/10/17 17:00 74 31 150/83 (105) 93 06/10/17 16:00 98.7 74 28 146/69 (94) 96 06/10/17 15:00 68 06/10/17 15:00 62 20 150/66 (94) 98 06/10/17 14:00 72 26 157/63 (94) 95 06/10/17 13:00 70 27 159/76 (103) 95 06/10/17 12:00 72 23 160/67 (98) 97 I/O 06/10/17 06/10/17 06/10/17 06/11/17 06/11/17 06/11/17 07:00 15:00 23:00 07:00 15:00 23:00 Intake Total 100 ml 460 ml 480 ml Output Total 200 ml Balance 100 ml 460 ml 280 ml Intake Oral 360 ml 480 ml IV Total 100 ml 100 ml Output Urine Total 200 ml # Voids 1 # Bowel Movements 2 4 1 Result Diagram: 06/11/1748 06/11/1748 Objective Remarks GENERAL: NAD, A&Ox3 HEAD: Normocephalic. NECK: Supple, trachea midline. No lymphadenopathy. EYES: No scleral icterus. No injection or drainage. CARDIOVASCULAR: Irregularly irregular rate with tachycardic rhythm, without murmurs, gallops, or rubs. RESPIRATORY: Breath sounds equal bilaterally. No accessory muscle use. GASTROINTESTINAL: Abdomen soft, non-tender, nondistended. MUSCULOSKELETAL: No cyanosis, or edema. SKIN: Warm and dry. NEURO: No focal neurological deficitis. A/P Problem List: (1) Atrial fibrillation with RVR ICD Code: I48.91 - Unspecified atrial fibrillation (2) COPD exacerbation ICD Code: J44.1 - Chronic obstructive pulmonary disease with (acute) exacerbation (3) Acute renal failure ICD Code: N17.9 - Acute kidney failure, unspecified Status: Acute (4) Chronic kidney disease (CKD) ICD Code: N18.9 - Chronic kidney disease, unspecified (5) Paroxysmal atrial fibrillation ICD Code: I48.0 - Paroxysmal atrial fibrillation Assessment and Plan Assessment and plan 76-year-old female admitted secondary to pneumonia with acute renal failure. Start Imodium for diarrhea. Transfer out of ICU today. Continue by mouth Cardizem CD. Continue to monitor on telemetry. Continue to work with PT to regain ambulation. 200 cc of urine output is present this morning. A. fib RVR Baseline paroxysmal A. fib Transition off IV diltiazem drip Continue by mouth Cardizem a higher dosing Following ICU Amiodarone to be considered as a second line option Community-acquired pneumonia COPD exacerbation Likely contributory to exacerbation of A. fib Continue Rocephin Culture showed Klebsiella and Escherichia coli Status post extubation 06/06/17 Continue oxygen as needed Continue BiPAP as needed Wean BiPAP as tolerated Continue nebulized treatments both scheduled and as needed Continue Spiriva Continue Symbicort Acute renal failure on chronic kidney disease Continue on hemodialysis Nephrology following Planning for fistula for long-term dialysis Gen. anxiety disorder Continue as needed Xanax Anemia Related to chronic kidney disease Continue Epogen Continue iron Diabetes mellitus type 2 Follow blood sugars Insulin sliding scale Diabetic diet DVT Prophylaxis Heparin Discharge Planning Home O2 anticipated Outpatient Dialysis anticipated Problem Qualifiers (1) Acute renal failure: Qualified Codes: N17.9 - Acute kidney failure, unspecified (2) Chronic kidney disease (CKD): Qualified Codes: N18.5 - Chronic kidney disease, stage 5 Laci Ibarra MD Jun 11, 2017 10:53
[2017-06-11] MEDS: SODIUM CHLORIDE 0.9% FLUSH 10 ML FLUSH IV FLUSH SCH ×4 (12:18→21:00)
--- NOTE | 2017-06-11 18:08 | HHI.NPPN ---
Subjective History of Present Illness 76-year-old female with past medical history of hypertension, diabetes mellitus, hyperlipidemia, ischemic heart disease, chronic kidney disease, chronic obstructive pulmonary disease was admitted because of generalized weakness, decreased urine output. I he was called to see the patient for elevated BUN and creatinine. The patient is known to me from before. She has been following with me in the office and last time I saw her was on May 04 and at that time her creatinine was 2.2 with given the GFR of 19-20 she had advanced stage IV chronic kidney disease most likely because of diabetic nephropathy. Additional Remarks This is a late entry, note for 06/10/2017. Patient is alert, breathing is better, with nasal cannula. Review of Systems General General Remarks Intubated and sedated. Objective Data Data Vital Signs Date Time Temp Pulse Resp B/P (MAP) Pulse Ox O2 Delivery O2 Flow Rate FiO2 06/11/17 16:00 97.3 78 35 159/75 (103) 96 06/11/17 16:00 78 06/11/17 15:00 76 29 163/67 (99) 97 06/11/17 14:00 70 13 161/60 (93) 98 06/11/17 13:00 78 26 174/67 (102) 95 06/11/17 12:00 97.9 72 24 166/72 (103) 96 06/11/17 11:31 66 18 157/74 (101) 96 06/11/17 11:00 84 40 182/93 (122) 93 06/11/17 10:00 82 30 179/88 (118) 95 06/11/17 09:00 70 29 176/67 (103) 97 06/11/17 08:00 66 06/11/17 08:00 97.7 68 24 176/83 (114) 99 06/11/17 07:44 100 Nasal Cannula 4.00 06/11/17 07:00 62 06/11/17 07:00 99 Nasal Cannula 4.00 06/11/17 04:00 62 18 152/63 (92) 96 06/11/17 04:00 97.5 62 18 152/63 (92) 96 06/11/17 03:00 64 18 142/57 (85) 98 06/11/17 00:00 97.8 78 28 158/62 (94) 97 06/10/17 23:00 79 06/10/17 21:00 78 28 174/85 (114) 98 06/10/17 20:02 98.3 72 27 168/74 (105) 100 06/10/17 19:49 98 Nasal Cannula 4.00 06/10/17 19:00 6 Nasal Cannula 4.00 -: 06/11/17 0548 06/11/17 0548 Physical Exam General Appearance: No Acute Distress, Comfortable Eyes Eye Exam: Pupils Equal Throat Throat Exam: Oral Mucosa [place] & Moist Neck Neck Exam: Neck Supple Pulmonary Resp Exam: Breath Sounds Equal, No Distress, Rhonchi, Decreased Bases, Diminished Breath Sounds, Poor Inspiratory Effort Cardiology CV Exam: Regular, Normal Sinus Rhythm Gastrointestinal/Abdomen GI Exam: Soft, Non-Tender, Bowel Sounds Present, Distended Extremeties Extremities Exam: Moderate Edema Neurologic Neuro Exam: Alert, Awake, Oriented Psychiatric Psych Exam: Appropriate Responses Assessment/Plan Assessment Summary: [place]LE/Acute Renal Failure, Hypertension, CKD Stage IV Problem List: (1) Chronic kidney disease (CKD) ICD Codes: N18.9 - Chronic kidney disease, unspecified (2) Oliguria ICD Codes: R34 - Anuria and oliguria (3) Diarrhea ICD Codes: R19.7 - Diarrhea, unspecified (4) Metabolic acidosis ICD Codes: E87.2 - Acidosis Status: Acute (5) Uremia ICD Codes: N19 - Unspecified kidney failure Status: Acute (6) Acute renal failure ICD Codes: N17.9 - Acute kidney failure, unspecified Status: Acute Plan Patient has advance stage 4 chronic kidney disease, approach stage 5. Started on HD. Patient will need AVF, when stable and detention HD. Patient has COPD with high CO2 and developing SOB off and on. HD now and remove more fluid. BP is stable. Hgb. is low but stable,on Epogen. HD done yesterday, continue HD, MWF. Problem Qualifiers (1) Chronic kidney disease (CKD): Qualified Codes: N18.5 - Chronic kidney disease, stage 5 (2) Acute renal failure: Qualified Codes: N17.9 - Acute kidney failure, unspecified Lexy Lee MD Jun 11, 2017 18:08
--- NOTE | 2017-06-11 18:09 | HHI.NPPN ---
Subjective History of Present Illness 76-year-old female with past medical history of hypertension, diabetes mellitus, hyperlipidemia, ischemic heart disease, chronic kidney disease, chronic obstructive pulmonary disease was admitted because of generalized weakness, decreased urine output. I he was called to see the patient for elevated BUN and creatinine. The patient is known to me from before. She has been following with me in the office and last time I saw her was on May 04 and at that time her creatinine was 2.2 with given the GFR of 19-20 she had advanced stage IV chronic kidney disease most likely because of diabetic nephropathy. Additional Remarks Patient is alert, breathing is better, with nasal cannula, sitting on chair. Review of Systems General General Remarks Intubated and sedated. Objective Data Data Vital Signs Date Time Temp Pulse Resp B/P (MAP) Pulse Ox O2 Delivery O2 Flow Rate FiO2 06/11/17 16:00 97.3 78 35 159/75 (103) 96 06/11/17 16:00 78 06/11/17 15:00 76 29 163/67 (99) 97 06/11/17 14:00 70 13 161/60 (93) 98 06/11/17 13:00 78 26 174/67 (102) 95 06/11/17 12:00 97.9 72 24 166/72 (103) 96 06/11/17 11:31 66 18 157/74 (101) 96 06/11/17 11:00 84 40 182/93 (122) 93 06/11/17 10:00 82 30 179/88 (118) 95 06/11/17 09:00 70 29 176/67 (103) 97 06/11/17 08:00 66 06/11/17 08:00 97.7 68 24 176/83 (114) 99 06/11/17 07:44 100 Nasal Cannula 4.00 06/11/17 07:00 62 06/11/17 07:00 99 Nasal Cannula 4.00 06/11/17 04:00 62 18 152/63 (92) 96 06/11/17 04:00 97.5 62 18 152/63 (92) 96 06/11/17 03:00 64 18 142/57 (85) 98 06/11/17 00:00 97.8 78 28 158/62 (94) 97 06/10/17 23:00 79 06/10/17 21:00 78 28 174/85 (114) 98 06/10/17 20:02 98.3 72 27 168/74 (105) 100 06/10/17 19:49 98 Nasal Cannula 4.00 06/10/17 19:00 6 Nasal Cannula 4.00 -: 06/11/17 0548 06/11/17 0548 Physical Exam General Appearance: No Acute Distress, Comfortable Eyes Eye Exam: Pupils Equal Throat Throat Exam: Oral Mucosa [place] & Moist Neck Neck Exam: Neck Supple Pulmonary Resp Exam: Breath Sounds Equal, No Distress, Rhonchi, Decreased Bases, Diminished Breath Sounds, Poor Inspiratory Effort Cardiology CV Exam: Regular, Normal Sinus Rhythm Gastrointestinal/Abdomen GI Exam: Soft, Non-Tender, Bowel Sounds Present, Distended Extremeties Extremities Exam: Moderate Edema Neurologic Neuro Exam: Alert, Awake, Oriented Psychiatric Psych Exam: Appropriate Responses Assessment/Plan Assessment Summary: [place]/Acute Renal Failure, Hypertension, CKD Stage IV Problem List: (1) Chronic kidney disease (CKD) ICD Codes: N18.9 - Chronic kidney disease, unspecified (2) Oliguria ICD Codes: R34 - Anuria and oliguria (3) Diarrhea ICD Codes: R19.7 - Diarrhea, unspecified (4) Metabolic acidosis ICD Codes: E87.2 - Acidosis Status: Acute (5) Uremia ICD Codes: N19 - Unspecified kidney failure Status: Acute (6) Acute renal failure ICD Codes: N17.9 - Acute kidney failure, unspecified Status: Acute Plan Patient has advance stage 4 chronic kidney disease, approach stage 5. Started on HD. 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 Patient has COPD with high CO2 and developing SOB off and on. BP is stable. Hgb. is better now,on Epogen. HD done on Monday. Once stable, will need PermCath, possibly on Monday and will also need AVF. Problem Qualifiers (1) Chronic kidney disease (CKD): Qualified Codes: N18.5 - Chronic kidney disease, stage 5 (2) Acute renal failure: Qualified Codes: N17.9 - Acute kidney failure, unspecified Lexy Lee MD Jun 11, 2017 18:09
[2017-06-11 18:45] LABS: BLOOD GAS BASE EXCESS -3.3 mmol/L (-2-2); BLOOD GAS CARBOXYHEMOGLOBIN 1.8 % (0-4); BLOOD GAS HCO3 22 mmol/L (22-26); BLOOD GAS METHEMOGLOBIN 1.3 % (0-2); BLOOD GAS O2 HGB SATURATION 90 % (90-100); BLOOD GAS OXYGEN CONTENT 11.4 Vol % (12.0-20.0); BLOOD GAS PCO2 41 mmHG (38-42); BLOOD GAS PO2 72 mmHG (61-120); BLOOD GAS TOTAL HGB 8.9 G/DL (12.0-16.0); TEMP CORR TO 98.6
[2017-06-11 18:46] LABS: CRITICAL VALUE NO; DRAW SITE RT RADIAL; LITER FLOW 3 L/M; NUMBER OF ARTERIAL PUNCTURES 1; OXYGEN DEVICE NASAL CANNULA; STAT NO; ULNAR PULSE Y
[2017-06-11] MEDS: ATORVASTATIN 40 MG TAB PO SCH (20:39)
[2017-06-11] MEDS: ALPRAZolam 0.25 MG TAB PO PRN (20:39)
[2017-06-11 20:42] LABS: BLOOD, URINE MOD (NEG); GLUCOSE,URINE NEG (NEG); KETONE, URINE NEG (NEG); NITRITE,URINE NEG (NEG)
[2017-06-11 20:49] LABS: METHOD OF COLLECTION CATH; URINE COLOR YELLOW (YELLW/STRAW)
[2017-06-11 20:50] LABS: SQUAMOUS EPITHELIAL CELL URINE > 8 /hpf (0-5)
[2017-06-11 20:52] LABS: COMMENT (UR) CATH-CULTURE IND; CULTURE IF INDICATED CATH CULTURE IND; MUCUS URINE FEW /lpf (OCC)
[2017-06-12] VITALS (98 sets, daily range): BP systolic 71–196; BP diastolic 43–101; PULSE 50–138; RESP 15–33; TEMP 97.6–97.7; O2SAT 90–100
[2017-06-12] MEDS: methylPREDNISolone SOD SUCC 40 MG/1 ML VIAL IV PUSH SCH ×3 (02:11→23:42)
[2017-06-12] MEDS ORDERED: DILTIAZEM HCL 25 MG/5 ML VIAL IV ONE (02:45)
[2017-06-12 03:32] LABS: CHLORIDE 95 MEQ/L (98-107); POTASSIUM 4.6 MEQ/L (3.5-5.1); SODIUM (NA) 135 MEQ/L (136-145)
[2017-06-12 03:36] LABS: ANION GAP 18 MEQ/L (5-15); BICARBONATE 22.3 MEQ/L (21.0-32.0); MAGNESIUM 2.8 MG/DL (1.5-2.5)
[2017-06-12 03:39] LABS: ALT (GPT) 92 U/L (10-53)
[2017-06-12 03:48] LABS: AUTOMATED NEUTROPHIL # 17.8 TH/MM3 (1.8-7.7); BASOPHIL # 0.1 TH/MM3 (0-0.2); BASOPHIL % 0.4 % (0.0-2.0); EOSINOPHIL % 0.1 % (0.0-4.0); HEMATOCRIT 27.8 % (35.0-46.0); HEMO FLAGS AUTO DIFF; LYMPH % 3.5 % (9.0-44.0); LYMPHOCYTE # 0.7 TH/MM3 (1.0-4.8); MEAN CELL VOLUME 81.4 FL (80.0-100.0); MEAN CORPUSCULAR HEMOGLOBIN 27.1 PG (27.0-34.0); MEAN CORPUSCULAR HGB CONC 33.3 % (32.0-36.0); MONO % 5.7 % (0.0-8.0); NEUT % 90.3 % (16.0-70.0); PLATELET COUNT 222 TH/MM3 (150-450); RED BLOOD COUNT 3.42 MIL/MM3 (4.00-5.30); RED CELL DISTRIBUTION WIDTH 17.5 % (11.6-17.2); WHITE BLOOD COUNT 19.7 TH/MM3 (4.0-11.0)
[2017-06-12 03:50] LABS: ALKALINE PHOSPHATASE 73 U/L (45-117); AST (GOT) 60 U/L (15-37); BLOOD UREA NITROGEN 156 MG/DL (7-18); GLOMERULAR FILTRATION RATE 4 ML/MIN (>89); TOTAL BILIRUBIN ADULT 0.4 MG/DL (0.2-1.0)
[2017-06-12] MEDS: CHLORHEXIDINE GLUCONATE 2 % 1 PACK (2 CLOTHS) TOP SCH (04:00)
[2017-06-12] MEDS ORDERED: DILTIAZEM HCL 25 MG/5 ML VIAL IV PUSH ONE (04:15)
[2017-06-12] MEDS ORDERED: LORazepam 2 MG/ML VIAL IV PUSH ONE (04:15)
[2017-06-12] MEDS ORDERED: DILTIAZEM INJ 125 MG in SODIUM CHLORIDE 0.9% INJ 100 ML IV PRN (04:15)
[2017-06-12 04:31] LABS: BANDS 1 % (0-6); METAMYELOCYTES 2 % (0-1); MYELOCYTES 1 % (0-0); NEUTROPHIL # MANUAL DIFF 16.9 TH/MM3 (1.8-7.7); POLYS (SEG NEUTROPHILS) 82 % (16-70); WBC DIFF SAMPLE 100
[2017-06-12 04:32] LABS: OVALOCYTES 1+ (NORMAL); PLATELET ESTIMATE SMEAR NORMAL (NORMAL); PLATELET MORPHOLOGY NORMAL (NORMAL); SCAN/DIFF FINAL DIFF MANUAL
[2017-06-12] MEDS ORDERED: FUROSEMIDE 40 MG/4 ML VIAL IV PUSH ONE (05:00)
[2017-06-12 05:25] LABS: BLOOD GAS BASE EXCESS -5.2 mmol/L (-2-2); BLOOD GAS CARBOXYHEMOGLOBIN 1.4 % (0-4); BLOOD GAS HCO3 20 mmol/L (22-26); BLOOD GAS METHEMOGLOBIN 1.5 % (0-2); BLOOD GAS O2 HGB SATURATION 94 % (90-100); BLOOD GAS OXYGEN CONTENT 11.9 Vol % (12.0-20.0); BLOOD GAS PCO2 45 mmHg (38-42); BLOOD GAS PO2 100 mmHg (61-120); BLOOD GAS TOTAL HGB 8.8 G/DL (12.0-16.0); CRITICAL VALUE YES; OXYGEN DEVICE BIPAP
[2017-06-12 05:26] LABS: DRAW SITE RT RADIAL; FIO2 40 %; NUMBER OF ARTERIAL PUNCTURES 1; STAT YES; ULNAR PULSE PRESENT; VENT SETTINGS IPAP 10/EPAP 5
--- NOTE | 2017-06-12 05:28 | RADRPT ---
EXAM DATE/TIME: 06/12/2017 05:02 [facility] COMPARISON: CHEST SINGLE AP, June 06, 2017, 5:59. INDICATIONS : Shortness of breath. MEDICAL HISTORY : Chronic obstructive pulmonary disease. Hypercholesterolemia. Hypertension. Stage IV kidney diseas e. Fatty liver, Diabetes SURGICAL HISTORY : Umbilical hernia repair. Cholecystectomy. Hysterectomy. Appendectomy.Right knee replacement.Bilateral rotator cuff repair ENCOUNTER: Subsequent ACUITY: 1 week PAIN SCORE: Non-responsive. LOCATION: Bilateral chest FINDINGS: The cardiac silhouette is enlarged in transverse diameter. There are findings of congestive heart boone lure with interstitial and alveolar opacity bilaterally. A right sided internal jugular vein catheter is in place without pneumothorax with its tip in the superior vena cava. Small bilateral pleural eff usions are identified. CONCLUSION: 1. Cardiomegaly and findings of congestive heart failure. There has been no significant change when c ompared to the prior exam. Emilio Beckford MD on June 12, 2017 at 5:26 Board Certified Radiologist. This report was verified electronically.
[2017-06-12 06:53] LABS: CRITICAL VALUE YES
[2017-06-12] MEDS: cefTRIAXone INJ 1,000 MG in SODIUM CHLORIDE 0.9% INJ 100 ML IV SCH ×2 (07:08→20:01)
[2017-06-12 07:26] LABS: BLOOD GAS BASE EXCESS -4.6 mmol/L (-2-2); BLOOD GAS CARBOXYHEMOGLOBIN 1.6 % (0-4); BLOOD GAS HCO3 21 mmol/L (22-26); BLOOD GAS METHEMOGLOBIN 1.5 % (0-2); BLOOD GAS O2 HGB SATURATION 90 % (90-100); BLOOD GAS OXYGEN CONTENT 10.7 Vol % (12.0-20.0); BLOOD GAS PCO2 46 mmHg (38-42); BLOOD GAS PO2 76 mmHg (61-120); BLOOD GAS TOTAL HGB 8.4 G/DL (12.0-16.0); CRITICAL VALUE YES; OXYGEN DEVICE BIPAP
[2017-06-12] MEDS: LOW DOSE INSULIN NOVOLIN REGULAR SUPPLEMENTAL SCALE SQ SCH (07:26)
[2017-06-12 07:27] LABS: DRAW SITE RT RADIAL; FIO2 40 %; NUMBER OF ARTERIAL PUNCTURES 1; STAT YES; ULNAR PULSE PRESENT; VENT SETTINGS IPAP 10/EPAP5
[2017-06-12] MEDS: CHLORHEXIDINE 0.12% (ORAL KIT) 15 ML CUP MT SCH ×3 (07:27→20:02)
[2017-06-12] MEDS ORDERED: fentaNYL DRIP 250 ML IV PRN (08:00)
[2017-06-12] MEDS ORDERED: ETOMIDATE 40 MG/20 ML VIAL IV PUSH ONE (08:00)
[2017-06-12] MEDS ORDERED: PHENYLEPHRINE INJ 160 MG in DEXTROSE 5% IN WATE 500 ML INJ 484 ML IV PRN ×2 (08:00)
[2017-06-12] MEDS ORDERED: ROCURONIUM INJ 50 MG/5 ML VIAL IV ONE (08:00)
[2017-06-12] MEDS ORDERED: TERBUTALINE INJ 1 MG/ML AMP SQ PRN (08:00)
[2017-06-12] MEDS ORDERED: MIDAZOLAM HCL 5 MG/ML VIAL (1 ML) ONE (08:12)
[2017-06-12] MEDS ORDERED: ETOMIDATE 20 MG/10 ML VIAL IV PUSH ONE (08:30)
--- NOTE | 2017-06-12 08:37 | HHI.CCPN ---
Subjective Remarks/Hospital Course The patient is a 76-year-old female with past medical history of hypertension, hyperlipidemia, diabetes mellitus, COPD, chronic kidney disease, who was admitted to [facility] yesterday under hospitalist service for acute renal failure and COPD exacerbation. On arrival the patient had BUN of 99 with a creatinine of 14 and potassium level 4.8. Chest x-ray on admission showed no evidence of any acute cardiopulmonary disease. She was seen by Dr. Lee from nephrology service and placed on bicarb drip. A renal ultrasound was obtained which showed no evidence of hydronephrosis. Her renal function continued to worsen. A Halicat was called this morning for respiratory distress. She was subsequently transferred to ICU and was intubated by Dr. Davila, the ED physician. ABG post-intubation showed severe hypercapnic and metabolic acidosis with a pH of 6.89, CO2 63, bicarb 12, pAO2 211, saturation 96 % on PRVC mode rate of 14, tidal volume 500. I time one, PEEP five and FIO2 60% . Chest x-ray post-intubation showed ET tube above the brayan and bilateral interstitial pattern. Her laboratory data this morning is significant for hyperkalemia with potassium level 6.1, BUN of 118, creatinine 14.0. When seen the patient is intubated and sedated with Diprivan drip. Her current blood pressure is 179/90 with a pulse of 117. 06/02 Patient s/p HD 06/01 with 2L fluid removal, 2 L removed today as well. . Patient remains intubated on low dose Diprivan but awake, alert and follows commands. Afebrile. She went into Afib with RVR overnight and started on Amio drip. 06/03 Converted to sinus with PAC's on amiodarone. Remains on mechanical ventilation. UOP 50 ml over last 24 hours. Following commands on sedation, will do SBT. Plan for HD today per discussion with [employer]PLICATION ARCHITECT. 06/04 CPAP trial terminated yesterday after patient became tachycardic, anxious. HD was not performed yesterday but plan for today per nephrology. Will use Precedex to facilitate comfort with CPAP. UOP 150. 06/05: Patient had hemodialysis today with 3 L fluid removed. Tolerating CPAP well, awake alert following commands communicating by writing. Chest x-ray remains unchanged 06/06: Overnight placed on Precedex for agitation. Also required BIPAP for hypercapnea. Weaned off Precedex by afternoon today. Currently on Xanax when necessary. At this time on BiPAP. Patient is pleasant and communicative breathing comfortably. Bilateral wheezes on exam. I have started patient on IV Solu-Medrol, Symbicort and Spiriva Subjective 06/12: Reconsulted secondary to acute hypoxemic respiratory failure. Currently on BiPAP with significant acidosis therefore intubated. Central line placed in the left IJ. Objective Vital Signs Date Time Temp Pulse Resp B/P (MAP) Pulse Ox O2 Delivery O2 Flow Rate FiO2 06/12/17 07:39 97 40 06/12/17 06:12 115 112/55 06/12/17 04:57 28 06/12/17 04:04 97.6 06/12/17 02:30 Bi-Pap 06/11/17 20:44 3.00 Intake and Output 06/12/17 06/12/17 06/13/17 08:00 16:00 00:00 Intake Total 39.2 ml Output Total 200 ml Balance -160.8 ml Result Diagram: 06/12/17 0313 06/12/17 0313 Other Results Microbiology Date/Time Source Procedure Growth Status 06/01/17 07:45 Blood Peripheral Aerobic Blood Culture - Final NO GROWTH IN 5 DAYS Complete 06/01/17 07:45 Blood Peripheral Anaerobic Blood Culture - Final NO GROWTH IN 5 DAYS Complete 06/01/17 08:30 Sputum Endotracheal Gram Stain - Final Complete 06/01/17 08:30 Sputum Culture - Final Klebsiella Pneumoniae Escherichia Coli Complete 06/11/17 20:33 Urine Catheterized Urine Urine Culture Pending Received Imaging Last Impressions Chest X-Ray 06/12/17 0000 Signed Impressions: Service Date/Time: Monday, June 12, 2017 05:02 - CONCLUSION: 1. Cardiomegaly and findings of congestive heart failure. There has been no significant change when compared to the prior exam. Emilio Beckford MD Renal Ultrasound 05/31/17 0000 Signed Impressions: Service Date/Time: Wednesday, May 31, 2017 08:54 - CONCLUSION: 1. Abnormal appearance to the left kidney with diminutive size and poor delineation of the parenchymal architecture. 2. No gross abnormality seen in the right kidney. Aramis Scott MD Objective Remarks GENERAL: Patient is 76 yo female, critically ill currently orotracheally intubated SKIN: Warm and dry. No rash. He is HEAD: Normocephalic. EYES: No scleral icterus. No injection or drainage. NECK: Supple, trachea midline. No JVD or lymphadenopathy. Right IJ hemodialysis catheter left IJ CVL clean dry and intact CARDIOVASCULAR: Tachycardia, IR. S1, S2. No S4. Without murmurs, clicks, rubs RESPIRATORY: Coarse bibasilar breath sounds. Bilateral inspiratory and expiratory wheezing appreciated. GASTROINTESTINAL: Abdomen soft, non-tender, nondistended. Hypoactive bowel sounds are appreciated MUSCULOSKELETAL: 1+ edema all extremities, upper and lower. NEURO: Arousable on the ventilator. Moves all 4 extremities spontaneously. Currently not following commands. Procedures Extubated 06/05 Vascular Central Line Catheter: Yes Assessment to: Continue Date of Insertion: Jun 12, 2017 Line: Central Venous Catheter Side: Left Location: Internal, Jugular A/P Assessment and Plan Neuro/Psych: Anxiety Patient is currently on propofol/fentanyl drips for sedation/analgesia while intubated Goal of RA SS -2 Daily sedation vacation Alprazolam 0.5 mg by mouth every 8 hours as needed for anxiety/home medication for anxiety] Acetaminophen 650 mg liquid every 6 hours when necessary for fever Pulm: Acute hypercapnic respiratory failure Acute COPD exacerbation Tobacco abuse Extubated 06/05/17. Reintubated 06/12 PRVC 18//08/11/69 Ventilator bundle Albuterol/ipratropium aerosols every 6 hours with albuterol aerosols every 2 hours. Dyspnea Budesonide 0.5/2 1 inhalation twice a day Currently on methylprednisolone 40 mg every 12 hours Pulm following, Dr. Hammonds Follow-up ABG/chest x-ray post intubation CV: Hypertension Hyperlipidemia Paroxysmal atrial fibrillation Monitor HR and BP and maintain MAP>65 mmHg. Currently on diltiazem 30 mg by tube every 6 hours. Holding enalapril 20 mg by mouth twice a day/home medication Holding furosemide 20 milligrams by mouth daily/home medication Echo showed 50-55% normal LV. Possible lipomatous hypertrophy of the inter- atrial septum Continue atorvastatin 80 mg by mouth daily at bedtime for dyslipidemia/home medication Phenylephrine drip if needed to maintain mean arterial pressure greater than 65 Renal/FEN/: CKD Stage IV, now on HD and probable ESRD with [facility] dialysis. Diabetic nephropathy Hyperphosphatemia Monitor renal function, I&O's and avoid nephrotoxins. HD started 06/01 with 2 KG removal, 06/02 with 2 KG removal. s/p HD 06/05 with 3L removed. Renal ultrasound 05/31 revealed medical renal disease left kidney/atrophy. Right kidney within normal limits Dr. Lee following. Plan for -3 L today On calcium acetate 1334 mg 3 times a day GI: Diarrhea present on admission On famotidine 20 mg by tube daily for GI prophylaxis. On Nepro goal 45 cc an hour for tube feeding On docusate sodium/senna 1 tablet twice a day for bowel regimen Loperamide 2 mg every 4 hours when necessary written for diarrhea if needed C diff negative. ID: Acute community acquired pneumonia Currently has completed ceftriaxone for total 8 day antibiotic course.. sputum culture 06/01: Klebsiella, E Coli S to ceftriaxone UA 06/11 pending Will reculture blood sputum and urine today. Along with Legionella and mechanically urinary antigens and influenza See orders We'll start on piperacillin/tazobactam and vancomycin today for possible HCAP. See orders Endo: Diabetes mellitus Detemir 10 units subcut q12 hours. High dose sliding scale Novulin R q4 hours. Check TSH Heme: Leukocytosis Anemia consistent with anemia of chronic kidney disease On iron sulfate 325 mg daily. Monitor CBC. GI prophylaxis with famotidine 20 mg daily and DVT prophylaxis with SCDs and heparin gtt Lines: Peripheral IV's, Right IJ vascath placed 06/01 . Left IJ CVL placed 06/12 Critical Care: The total critical care time was 35 minutes. Time to perform other separately billable procedures was not included in the critical care time. Mitchel Loera MD Jun 12, 2017 08:37
--- NOTE | 2017-06-12 08:37 | PD.PROCEDR ---
Central Line Procedure REASON FOR PROCEDURE Central venous access PROCEDURE PERFORMED Central line placement: Left IJ CVL CONSENT Informed consent for procedure was obtained. The risks and benefits of the procedure were discussed to include but limited to bleeding, clot formation, infection, and even . ANESTHESIA Local injection of 1% Lidocaine DESCRIPTION OF THE PROCEDURE The patient was placed in supine, mild Trendelenburg position. The area was exposed and cleansed with ChloraPrep, times two. Large sterile drape was used to cover the patient, with the site exposed, under sterile conditions including cap, face mask, sterile gown, and sterile gloves. On single attempt, the introducer needle was inserted with negative pressure in syringe and venous flash was obtained. The guide wire was then advanced without any restriction and the needle was removed. The dilator was used without any complications. Using Seldinger technique the antibiotic coated triple-lumen catheter was advanced over the guide wire to a depth of 20 centimeters. The guide wire was removed. All ports were aspirated with dark venous blood return and flushed easily with sterile saline. All ports were capped. Antibiotic disc was placed around central line at puncture site. The central line was secured to the skin with two interrupted 2.0 silk sutures. The area was bandaged with sterile see- through central line bandage. RADIOLOGICAL DATA Ultrasound guidance was used to locate left internal jugular vein. Doppler/ color flow was used to confirm venous flow. COMPLICATIONS: No apparent complications ESTIMATED BLOOD LOSS: Less than 1 cc. Mitchel Lorea MD Jun 12, 2017 08:37
--- NOTE | 2017-06-12 08:38 | PD.PROCEDR ---
Procedure Note Procedure DATE: 06/12/2017 PROCEDURE: Orotracheal intubation INDICATION: Acute hypoxemic respiratory failure DETAILS OF PROCEDURE The patient was placed in optimal position and preoxygenated with 100% FiO2 via bag valve mask. At the start oxygen saturation was 100%. The patient was administered 5 mg midazolam IV and 50 milligrams rocuronium IV. I entered the oropharynx with a size D CMAC blade and obtained a grade 3 view of the airway. On single attempt a size 8.0 cuffed endotracheal tube was passed through the vocal cords. Correct tube location was confirmed with end tidal CO2 detector and by auscultating over bilateral lung shaffer. The endotracheal tube was secured with adhesive tape at a depth of 23 cm at the lips. The patient was connected to the ventilator. The patient tolerated the procedure well without any apparent complications. Oxygen saturations were maintained greater than 95% all times. STAT chest x-ray pending at time of dictation. Mitchel Loera MD Jun 12, 2017 08:38
[2017-06-12] MEDS ORDERED: SODIUM CHLORIDE 0.9% FLUSH 10 ML FLUSH IV FLUSH PRN (08:45)
[2017-06-12] MEDS: BENEPROTEIN POWDER 1 PACK G-TUBE SCH ×3 (09:00→17:52)
[2017-06-12] MEDS: CALCIUM ACETATE 667 MG CAP PO SCH ×3 (09:00→17:52)
[2017-06-12] MEDS ORDERED: GLUCAGON 1 MG/ML VIAL OTHER PRN (09:00)
[2017-06-12] MEDS ORDERED: HEPARIN-D5W 25,000 U/250 ML 250 ML IV PRN (09:00)
[2017-06-12] MEDS ORDERED: ACETAMINOPHEN 650 MG/20.3 ML UDC OG-TUBE PRN (09:00)
[2017-06-12] MEDS ORDERED: DEXTROSE 50% IN WATER 50 ML VIAL(D50) IV PUSH PRN (09:00)
--- NOTE | 2017-06-12 09:05 | RADRPT ---
EXAM DATE/TIME: 06/12/2017 08:40 [facility] COMPARISON: CHEST SINGLE AP, June 12, 2017, 5:02. INDICATIONS : Central line and OG tube placement. MEDICAL HISTORY : Chronic obstructive pulmonary disease. Hypertension Diabetes mellitus type II. Stage IV kidney di sease SURGICAL HISTORY : Cholecystectomy. Appendectomy. Hysterectomy. umbilical hernia repair ENCOUNTER: Subsequent ACUITY: 3 weeks PAIN SCORE: Non-responsive. LOCATION: Bilateral chest FINDINGS: Stable right IJ separate osseous catheter in place. ET tube approximately 3 cm above the brayan. OG t ube coursing beyond the GE junction with tip omitted from the image. Left IJ central line with tip ne ar the caval junction. There is no pneumothorax. Redemonstration of diffuse interstitial prominence w ith bilateral, right greater left, lower lung zone pleural-parenchymal disease. Cardiomediastinal con tours are stable. Remainder of the exam is unchanged. CONCLUSION: 1. ETT in good position. Left IJ central line in good position. OGT beyond the GE junction. 2. No pneumothorax. 3. Stable changes of congestive heart failure. Berny Marie MD on June 12, 2017 at 9:00 Board Certified Radiologist. This report was verified electronically.
[2017-06-12] MEDS ORDERED: Vancomycin Consult Pharmacy 1 EA OTHER SCH (09:15)
[2017-06-12] MEDS: ALBUMIN 25% INJ 100 ML IV PRN ×2 (09:25→09:27)
[2017-06-12] MEDS: GENTAMICIN SULFATE (DIALYSIS USE ONLY) 20 MG/2 ML VIAL OTHER PRN (09:26)
[2017-06-12] MEDS: HEPARIN SODIUM - IV 10,000 UNITS/10 ML VIAL PRN (09:26)
[2017-06-12 11:33] LABS: HEMATOCRIT 28.4 % (35.0-46.0); MEAN CELL VOLUME 79.9 FL (80.0-100.0); MEAN CORPUSCULAR HEMOGLOBIN 26.8 PG (27.0-34.0); MEAN CORPUSCULAR HGB CONC 33.5 % (32.0-36.0); PLATELET COUNT 338 TH/MM3 (150-450); RED BLOOD COUNT 3.56 MIL/MM3 (4.00-5.30); RED CELL DISTRIBUTION WIDTH 17.3 % (11.6-17.2); WHITE BLOOD COUNT 37.9 TH/MM3 (4.0-11.0)
[2017-06-12 11:34] LABS: REVIEW FLAG FINAL
[2017-06-12 11:47] LABS: APTT (PATIENT) 36.2 SEC (24.3-30.1)
[2017-06-12] MEDS: FERROUS SULFATE 325 MG (65 MG ELEMENTAL IRON) TAB PO SCH (12:10)
[2017-06-12] MEDS: FAMOTIDINE 20 MG TAB NG SCH (12:10)
[2017-06-12] MEDS: VITAMIN B CMPLX/VITC/FOLIC AC CAP PO SCH (12:10)
[2017-06-12] MEDS: DOCUSATE SODIUM 50 MG/SENNA 8.6 MG TAB PO SCH ×2 (12:10→20:03)
[2017-06-12] MEDS: INSULIN DETEMIR 100 UNITS/ML VIAL SQ SCH ×2 (12:11→20:17)
[2017-06-12] MEDS: SODIUM CHLORIDE 0.9% FLUSH 10 ML FLUSH IV FLUSH SCH ×4 (12:11→20:02)
[2017-06-12] MEDS: PROPOFOL 1000 MG/100 ML INJ 100 ML IV PRN ×3 (12:19→23:44)
[2017-06-12] MEDS: PIPERACIL-TAZO 2.25 GM PREMIX 50 ML IV SCH ×2 (12:19→20:01)
[2017-06-12] MEDS: DILTIAZEM HCL 60 MG TAB PO SCH ×3 (12:19→23:42)
[2017-06-12 13:51] LABS: BLOOD GAS BASE EXCESS 3.3 mmol/L (-2-2); BLOOD GAS CARBOXYHEMOGLOBIN 0.5 % (0-4); BLOOD GAS HCO3 27 mmol/L (22-26); BLOOD GAS METHEMOGLOBIN 1.1 % (0-2); BLOOD GAS O2 HGB SATURATION 96 % (90-100); BLOOD GAS OXYGEN CONTENT 12.9 Vol % (12.0-20.0); BLOOD GAS PCO2 40 mmHg (38-42); BLOOD GAS PO2 203 mmHg (61-120); BLOOD GAS TOTAL HGB 9.1 G/DL (12.0-16.0); CRITICAL VALUE NO; OXYGEN DEVICE VENTILATOR
[2017-06-12 13:52] LABS: DRAW SITE RT RADIAL; FIO2 70 %; NUMBER OF ARTERIAL PUNCTURES 1; STAT NO; ULNAR PULSE PRESENT; VENT SETTINGS SEE COMMENTS
[2017-06-12] MEDS: RESP: ALBUTEROL 2.5 MG/IPRATROPIUM 0.5 MG NEB (SCH) NEB ×3 (14:25→19:43)
[2017-06-12] MEDS: INSULIN NovoLIN REGULAR SUPPLEMENTAL SCALE SQ SCH ×3 (16:00→20:17)
[2017-06-12] MEDS: ARTIFICIAL TEARS OPTH SOLN 15 ML BTL EACH EYE SCH ×2 (16:09→23:42)
--- NOTE | 2017-06-12 17:57 | HHI.NPPN ---
Subjective History of Present Illness 76-year-old female with past medical history of hypertension, diabetes mellitus, hyperlipidemia, ischemic heart disease, chronic kidney disease, chronic obstructive pulmonary disease was admitted because of generalized weakness, decreased urine output. I he was called to see the patient for elevated BUN and creatinine. The patient is known to me from before. She has been following with me in the office and last time I saw her was on May 04 and at that time her creatinine was 2.2 with given the GFR of 19-20 she had advanced stage IV chronic kidney disease most likely because of diabetic nephropathy. Additional Remarks Patient is re intubated has resp. failure, now sedated. Review of Systems General General Remarks Intubated and sedated. Objective Data Data 06/12/17 06/13/17 19:00 07:00 Intake Total 250 ml Output Total 3500 ml Balance -3250 ml IV Total 250 ml Hemodialysis 3500 ml Vital Signs Date Time Temp Pulse Resp B/P (MAP) Pulse Ox O2 Delivery O2 Flow Rate FiO2 06/12/17 17:40 100 45 06/12/17 17:00 74 17 100 06/12/17 16:24 58 18 143/69 (93) 100 06/12/17 16:09 54 18 138/57 (84) 100 06/12/17 16:00 56 06/12/17 16:00 54 17 100 06/12/17 15:00 52 17 100 06/12/17 14:54 52 17 132/57 (82) 100 06/12/17 14:39 52 17 138/58 (84) 100 06/12/17 14:24 54 18 161/75 (103) 100 06/12/17 14:09 52 17 163/70 (101) 100 06/12/17 14:00 54 17 100 06/12/17 13:58 54 17 186/86 (119) 100 06/12/17 13:54 54 17 196/82 (120) 100 06/12/17 13:39 54 18 173/85 (114) 100 06/12/17 13:34 54 18 167/78 (107) 100 06/12/17 13:24 54 17 184/86 (118) 100 06/12/17 13:09 50 17 166/78 (107) 100 06/12/17 13:00 100 70 06/12/17 13:00 52 18 100 06/12/17 12:54 52 18 154/68 (96) 100 06/12/17 12:39 54 17 164/77 (106) 100 06/12/17 12:28 56 17 131/59 (83) 100 06/12/17 12:24 60 18 90/53 (65) 100 06/12/17 12:09 56 17 119/59 (79) 100 06/12/17 12:00 56 17 100 06/12/17 11:30 54 17 100 06/12/17 11:24 52 17 162/73 (102) 100 06/12/17 11:09 54 18 176/81 (112) 100 06/12/17 10:54 54 18 155/56 (89) 100 06/12/17 10:39 124 18 103/73 (83) 100 06/12/17 10:30 120 16 100 06/12/17 10:29 124 15 100/59 (73) 100 06/12/17 10:29 124 15 100/59 (73) 100 06/12/17 10:20 110 17 131/67 (88) 100 06/12/17 10:20 110 17 131/67 (88) 100 06/12/17 10:15 102 17 108/62 (77) 100 06/12/17 10:15 102 17 108/62 (77) 100 06/12/17 10:10 106 17 100/55 (70) 100 06/12/17 10:10 106 17 100/55 (70) 100 06/12/17 10:05 112 18 71/53 (59) 100 06/12/17 10:05 112 18 71/53 (59) 100 06/12/17 10:00 106 17 87/50 (62) 100 06/12/17 10:00 106 17 87/50 (62) 100 06/12/17 09:55 120 28 104/55 (71) 100 06/12/17 09:55 120 28 104/55 (71) 100 06/12/17 09:53 126 18 82/54 (63) 100 06/12/17 09:53 126 18 82/54 (63) 100 06/12/17 09:49 120 18 100 06/12/17 09:49 120 18 100 06/12/17 09:47 124 20 108/64 (79) 100 06/12/17 09:47 124 20 108/64 (79) 100 06/12/17 09:45 126 19 109/71 (84) 100 06/12/17 09:45 126 19 109/71 (84) 100 06/12/17 09:43 118 17 113/87 (96) 100 06/12/17 09:43 118 17 113/87 (96) 100 06/12/17 09:41 130 25 125/73 (90) 100 06/12/17 09:41 130 25 125/73 (90) 100 06/12/17 09:39 138 27 148/101 (117) 100 06/12/17 09:39 138 27 148/101 (117) 100 06/12/17 09:37 126 17 102/88 (93) 100 06/12/17 09:37 126 17 102/88 (93) 100 06/12/17 09:35 122 15 130/92 (105) 100 06/12/17 09:35 122 15 130/92 (105) 100 06/12/17 09:33 126 15 158/83 (108) 100 06/12/17 09:33 126 15 158/83 (108) 100 06/12/17 09:31 118 17 146/95 (112) 100 06/12/17 09:31 118 17 146/95 (112) 100 06/12/17 09:30 124 19 100 06/12/17 09:30 124 19 100 06/12/17 09:13 114 20 178/85 (116) 100 06/12/17 09:13 114 20 178/85 (116) 100 06/12/17 09:11 112 20 153/82 (105) 100 06/12/17 09:11 112 20 153/82 (105) 100 06/12/17 09:09 112 20 131/81 (98) 100 06/12/17 09:09 112 20 131/81 (98) 100 06/12/17 09:07 118 21 148/88 (108) 100 06/12/17 09:07 118 21 148/88 (108) 100 06/12/17 09:05 114 20 134/72 (92) 100 06/12/17 09:05 114 20 134/72 (92) 100 06/12/17 09:03 110 19 148/79 (102) 100 06/12/17 09:03 110 19 148/79 (102) 100 06/12/17 09:01 108 20 171/73 (105) 100 06/12/17 09:01 108 20 171/73 (105) 100 06/12/17 09:00 118 19 96 06/12/17 09:00 118 19 96 06/12/17 08:46 102 18 98/58 (71) 98 06/12/17 08:46 102 18 98/58 (71) 98 06/12/17 08:31 104 16 107/61 (76) 98 06/12/17 08:31 104 16 107/61 (76) 98 06/12/17 08:16 104 20 122/63 (82) 96 06/12/17 08:16 104 20 122/63 (82) 96 06/12/17 08:15 100 70 06/12/17 08:01 96 19 106/55 (72) 96 06/12/17 08:01 96 19 106/55 (72) 96 06/12/17 08:00 97 100 06/12/17 08:00 102 19 96 06/12/17 08:00 102 19 96 06/12/17 08:00 120 06/12/17 08:00 95 Bi-Pap 40 06/12/17 07:46 100 19 94/60 (71) 96 06/12/17 07:46 100 19 94/60 (71) 96 06/12/17 07:39 97 40 06/12/17 07:33 98 19 93/55 (68) 97 06/12/17 07:33 98 19 93/55 (68) 97 06/12/17 07:31 92 19 79/43 (55) 97 06/12/17 07:31 92 19 79/43 (55) 97 06/12/17 07:16 106 18 117/45 (69) 96 06/12/17 07:16 106 18 117/45 (69) 96 06/12/17 07:01 92 20 112/55 (74) 97 06/12/17 07:01 92 20 112/55 (74) 97 06/12/17 07:00 92 25 96 06/12/17 07:00 92 25 96 06/12/17 06:12 115 112/55 06/12/17 04:57 138 28 164/79 (107) 90 06/12/17 04:47 114 20 140/70 (93) 99 06/12/17 04:35 94 40 06/12/17 04:32 111 25 146/72 (96) 95 06/12/17 04:18 145 164/79 06/12/17 04:17 122 17 176/76 (109) 95 06/12/17 04:04 97.6 122 30 114/68 (83) 92 06/12/17 03:59 116 33 114/68 (83) 92 06/12/17 03:38 132 26 184/100 (128) 92 06/12/17 03:29 136 32 177/91 (119) 93 06/12/17 02:30 88 Bi-Pap 40 06/12/17 01:00 68 20 168/65 (99) 94 06/12/17 00:00 97.7 80 29 95/69 (78) 97 06/11/17 23:00 75 06/11/17 23:00 76 25 167/64 (98) 96 06/11/17 22:00 78 26 172/67 (102) 96 06/11/17 21:00 99.2 76 31 172/67 (102) 96 06/11/17 20:44 97 Nasal Cannula 3.00 06/11/17 20:00 78 31 162/85 (110) 95 06/11/17 19:00 99 Nasal Cannula 4.00 -: 06/12/17 1115 06/12/17 0313 Microbiology 06/12/17 Aerobic Blood Culture, Received Pending 06/12/17 Anaerobic Blood Culture, Received Pending 06/12/17 Aerobic Blood Culture, Received Pending 06/12/17 Anaerobic Blood Culture, Received Pending 06/12/17 Gram Stain - Final, Resulted 06/12/17 Sputum Culture, Resulted Pending 06/11/17 Urine Culture - Preliminary, Resulted NO GROWTH IN 24 HOURS. Physical Exam General Appearance Remarks Intubated and sedated. Eyes Eye Exam: Pupils Equal Throat Throat Exam: Oral Mucosa [place] & Moist Neck Neck Exam: Neck Supple Pulmonary Resp Exam: Breath Sounds Equal, No Distress, Rhonchi, Decreased Bases, Diminished Breath Sounds, Poor Inspiratory Effort Cardiology CV Exam: Regular, Normal Sinus Rhythm Gastrointestinal/Abdomen GI Exam: Soft, Non-Tender, Bowel Sounds Present, Distended Extremeties Extremities Exam: Moderate Edema Neurologic Neuro Exam: Sedated Assessment/Plan Assessment Summary: [place]/Acute Renal Failure, Hypertension, CKD Stage IV Problem List: (1) Chronic kidney disease (CKD) ICD Codes: N18.9 - Chronic kidney disease, unspecified (2) Oliguria ICD Codes: R34 - Anuria and oliguria (3) Diarrhea ICD Codes: R19.7 - Diarrhea, unspecified (4) Metabolic acidosis ICD Codes: E87.2 - Acidosis Status: Acute (5) Uremia ICD Codes: N19 - Unspecified kidney failure Status: Acute (6) Acute renal failure ICD Codes: N17.9 - Acute kidney failure, unspecified Status: Acute Plan Patient has advance stage 4 chronic kidney disease, approach stage 5. Started on HD. 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 Patient has COPD with high CO2 and developing SOB off and on. BP is stable. Hgb. is better now,on Epogen. HD done in AM. Patient was intubated in AM for resp. failure. Continue HD as needed. Problem Qualifiers (1) Chronic kidney disease (CKD): Qualified Codes: N18.5 - Chronic kidney disease, stage 5 (2) Acute renal failure: Qualified Codes: N17.9 - Acute kidney failure, unspecified Lexy Lee MD Jun 12, 2017 17:57
--- NOTE | 2017-06-12 18:15 | HHI.PR ---
Subjective Remarks 76 YOWF with VDRF,Ac renal Failure,DM, Met acidosis No Fever Reintubated On PRVC, Fi02 45% Sedated Objective Vital Signs Vital Signs Date Time Temp Pulse Resp B/P (MAP) Pulse Ox O2 Delivery O2 Flow Rate FiO2 06/12/17 17:40 100 45 06/12/17 17:00 74 17 100 06/12/17 16:24 58 18 143/69 (93) 100 06/12/17 16:09 54 18 138/57 (84) 100 06/12/17 16:00 56 06/12/17 16:00 54 17 100 06/12/17 15:00 52 17 100 06/12/17 14:54 52 17 132/57 (82) 100 06/12/17 14:39 52 17 138/58 (84) 100 06/12/17 14:24 54 18 161/75 (103) 100 06/12/17 14:09 52 17 163/70 (101) 100 06/12/17 14:00 54 17 100 06/12/17 13:58 54 17 186/86 (119) 100 06/12/17 13:54 54 17 196/82 (120) 100 06/12/17 13:39 54 18 173/85 (114) 100 06/12/17 13:34 54 18 167/78 (107) 100 06/12/17 13:24 54 17 184/86 (118) 100 06/12/17 13:09 50 17 166/78 (107) 100 06/12/17 13:00 100 70 06/12/17 13:00 52 18 100 06/12/17 12:54 52 18 154/68 (96) 100 06/12/17 12:39 54 17 164/77 (106) 100 06/12/17 12:28 56 17 131/59 (83) 100 06/12/17 12:24 60 18 90/53 (65) 100 06/12/17 12:09 56 17 119/59 (79) 100 06/12/17 12:00 56 17 100 06/12/17 11:30 54 17 100 06/12/17 11:24 52 17 162/73 (102) 100 06/12/17 11:09 54 18 176/81 (112) 100 06/12/17 10:54 54 18 155/56 (89) 100 06/12/17 10:39 124 18 103/73 (83) 100 06/12/17 10:30 120 16 100 06/12/17 10:29 124 15 100/59 (73) 100 06/12/17 10:29 124 15 100/59 (73) 100 06/12/17 10:20 110 17 131/67 (88) 100 06/12/17 10:20 110 17 131/67 (88) 100 06/12/17 10:15 102 17 108/62 (77) 100 06/12/17 10:15 102 17 108/62 (77) 100 06/12/17 10:10 106 17 100/55 (70) 100 06/12/17 10:10 106 17 100/55 (70) 100 06/12/17 10:05 112 18 71/53 (59) 100 06/12/17 10:05 112 18 71/53 (59) 100 06/12/17 10:00 106 17 87/50 (62) 100 06/12/17 10:00 106 17 87/50 (62) 100 06/12/17 09:55 120 28 104/55 (71) 100 06/12/17 09:55 120 28 104/55 (71) 100 06/12/17 09:53 126 18 82/54 (63) 100 06/12/17 09:53 126 18 82/54 (63) 100 06/12/17 09:49 120 18 100 06/12/17 09:49 120 18 100 06/12/17 09:47 124 20 108/64 (79) 100 06/12/17 09:47 124 20 108/64 (79) 100 06/12/17 09:45 126 19 109/71 (84) 100 06/12/17 09:45 126 19 109/71 (84) 100 06/12/17 09:43 118 17 113/87 (96) 100 06/12/17 09:43 118 17 113/87 (96) 100 06/12/17 09:41 130 25 125/73 (90) 100 06/12/17 09:41 130 25 125/73 (90) 100 06/12/17 09:39 138 27 148/101 (117) 100 06/12/17 09:39 138 27 148/101 (117) 100 06/12/17 09:37 126 17 102/88 (93) 100 06/12/17 09:37 126 17 102/88 (93) 100 06/12/17 09:35 122 15 130/92 (105) 100 06/12/17 09:35 122 15 130/92 (105) 100 06/12/17 09:33 126 15 158/83 (108) 100 06/12/17 09:33 126 15 158/83 (108) 100 06/12/17 09:31 118 17 146/95 (112) 100 06/12/17 09:31 118 17 146/95 (112) 100 06/12/17 09:30 124 19 100 06/12/17 09:30 124 19 100 06/12/17 09:13 114 20 178/85 (116) 100 06/12/17 09:13 114 20 178/85 (116) 100 06/12/17 09:11 112 20 153/82 (105) 100 06/12/17 09:11 112 20 153/82 (105) 100 06/12/17 09:09 112 20 131/81 (98) 100 06/12/17 09:09 112 20 131/81 (98) 100 06/12/17 09:07 118 21 148/88 (108) 100 06/12/17 09:07 118 21 148/88 (108) 100 06/12/17 09:05 114 20 134/72 (92) 100 06/12/17 09:05 114 20 134/72 (92) 100 06/12/17 09:03 110 19 148/79 (102) 100 06/12/17 09:03 110 19 148/79 (102) 100 06/12/17 09:01 108 20 171/73 (105) 100 06/12/17 09:01 108 20 171/73 (105) 100 06/12/17 09:00 118 19 96 06/12/17 09:00 118 19 96 06/12/17 08:46 102 18 98/58 (71) 98 06/12/17 08:46 102 18 98/58 (71) 98 06/12/17 08:31 104 16 107/61 (76) 98 06/12/17 08:31 104 16 107/61 (76) 98 06/12/17 08:16 104 20 122/63 (82) 96 06/12/17 08:16 104 20 122/63 (82) 96 06/12/17 08:15 100 70 06/12/17 08:01 96 19 106/55 (72) 96 06/12/17 08:01 96 19 106/55 (72) 96 06/12/17 08:00 97 100 06/12/17 08:00 102 19 96 06/12/17 08:00 102 19 96 06/12/17 08:00 120 06/12/17 08:00 95 Bi-Pap 40 06/12/17 07:46 100 19 94/60 (71) 96 06/12/17 07:46 100 19 94/60 (71) 96 06/12/17 07:39 97 40 06/12/17 07:33 98 19 93/55 (68) 97 06/12/17 07:33 98 19 93/55 (68) 97 06/12/17 07:31 92 19 79/43 (55) 97 06/12/17 07:31 92 19 79/43 (55) 97 06/12/17 07:16 106 18 117/45 (69) 96 06/12/17 07:16 106 18 117/45 (69) 96 06/12/17 07:01 92 20 112/55 (74) 97 06/12/17 07:01 92 20 112/55 (74) 97 06/12/17 07:00 92 25 96 06/12/17 07:00 92 25 96 06/12/17 06:12 115 112/55 06/12/17 04:57 138 28 164/79 (107) 90 06/12/17 04:47 114 20 140/70 (93) 99 06/12/17 04:35 94 40 06/12/17 04:32 111 25 146/72 (96) 95 06/12/17 04:18 145 164/79 06/12/17 04:17 122 17 176/76 (109) 95 06/12/17 04:04 97.6 122 30 114/68 (83) 92 06/12/17 03:59 116 33 114/68 (83) 92 06/12/17 03:38 132 26 184/100 (128) 92 06/12/17 03:29 136 32 177/91 (119) 93 06/12/17 02:30 88 Bi-Pap 40 06/12/17 01:00 68 20 168/65 (99) 94 06/12/17 00:00 97.7 80 29 95/69 (78) 97 06/11/17 23:00 75 06/11/17 23:00 76 25 167/64 (98) 96 06/11/17 22:00 78 26 172/67 (102) 96 06/11/17 21:00 99.2 76 31 172/67 (102) 96 06/11/17 20:44 97 Nasal Cannula 3.00 06/11/17 20:00 78 31 162/85 (110) 95 06/11/17 19:00 99 Nasal Cannula 4.00 I/O 06/11/17 06/11/17 06/11/17 06/12/17 06/12/17 06/12/17 07:00 15:00 23:00 07:00 15:00 23:00 Intake Total 480 ml 720 ml 39.2 ml 250 ml Output Total 200 ml 200 ml 3500 ml Balance 280 ml 720 ml -160.8 ml -3250 ml Intake Oral 480 ml 720 ml 30 ml IV Total 9.2 ml 250 ml Output Urine Total 200 ml 200 ml Hemodialysis 3500 ml # Bowel Movements 1 0 0 Result Diagram: 06/12/17 1115 06/12/17 0313 Objective Remarks GENERAL: WBWN WF, On NC SKIN: Warm and dry. HEAD: Normocephalic. EYES: No scleral icterus. No injection or drainage. NECK: Supple, trachea midline. No JVD or lymphadenopathy. CARDIOVASCULAR: Regular rate and rhythm without murmurs, gallops, or rubs. RESPIRATORY: Breath sounds equal bilaterally. No accessory muscle use. GASTROINTESTINAL: Abdomen soft, non-tender, nondistended. MUSCULOSKELETAL: No cyanosis, or edema. BACK: Nontender without obvious deformity. No CVA tenderness. A/P Assessment and Plan VDRF, s/p Extubation COPD Ac renal Failure Metabolic acidosis DM Nicotine use PLAN: Vent support PRVC,Fi02 45% Encourage PO Aerosol nebs Supplement 02 Monitor BS Alyce [email or web address]. Jac Hammonds MD Jun 12, 2017 18:15
[2017-06-12] MEDS: RESP: BUDESONIDE 0.5 MG/2 ML NEB NEB SCH (19:43)
[2017-06-12] MEDS: ATORVASTATIN 40 MG TAB PO SCH (20:03)
[2017-06-12 22:17] LABS: APTT (PATIENT) GREATER THAN 277.5 SEC (24.3-30.1)
[2017-06-13] VITALS (53 sets, daily range): BP systolic 105–165; BP diastolic 43–75; PULSE 54–98; RESP 11–37; TEMP 96.9–98.5; O2SAT 98–100
[2017-06-13] MEDS: INSULIN NovoLIN REGULAR SUPPLEMENTAL SCALE SQ SCH ×6 (00:29→20:45)
[2017-06-13 01:11] LABS: APTT (PATIENT) 121.7 SEC (24.3-30.1)
[2017-06-13 02:53] LABS: APTT (PATIENT) 65.1 SEC (24.3-30.1)
[2017-06-13] MEDS: CHLORHEXIDINE GLUCONATE 2 % 1 PACK (2 CLOTHS) TOP SCH (04:00)
[2017-06-13] MEDS: PIPERACIL-TAZO 2.25 GM PREMIX 50 ML IV SCH ×3 (04:20→20:24)
[2017-06-13 05:14] LABS: AUTOMATED NEUTROPHIL # 15.3 TH/MM3 (1.8-7.7); EOSINOPHIL % 0.1 % (0.0-4.0); HEMATOCRIT 22.8 % (35.0-46.0); HEMO FLAGS DIFF FINAL; LYMPH % 4.4 % (9.0-44.0); LYMPHOCYTE # 0.7 TH/MM3 (1.0-4.8); MEAN CORPUSCULAR HEMOGLOBIN 26.6 PG (27.0-34.0); MEAN CORPUSCULAR HGB CONC 33.3 % (32.0-36.0); MONO % 3.8 % (0.0-8.0); NEUT % 91.7 % (16.0-70.0); PLATELET COUNT 198 TH/MM3 (150-450); RED BLOOD COUNT 2.85 MIL/MM3 (4.00-5.30); RED CELL DISTRIBUTION WIDTH 17.4 % (11.6-17.2); WHITE BLOOD COUNT 16.6 TH/MM3 (4.0-11.0)
[2017-06-13 05:28] LABS: CHLORIDE 94 MEQ/L (98-107); POTASSIUM 4.4 MEQ/L (3.5-5.1); SODIUM (NA) 135 MEQ/L (136-145)
[2017-06-13 05:33] LABS: ANION GAP 13 MEQ/L (5-15); BICARBONATE 27.6 MEQ/L (21.0-32.0); MAGNESIUM 2.6 MG/DL (1.5-2.5)
[2017-06-13] MEDS: DILTIAZEM HCL 60 MG TAB PO SCH ×3 (06:00→18:00)
[2017-06-13] MEDS: ARTIFICIAL TEARS OPTH SOLN 15 ML BTL EACH EYE SCH ×3 (06:00→20:47)
[2017-06-13 06:30] LABS: ALKALINE PHOSPHATASE 58 U/L (45-117); ALT (GPT) 95 U/L (10-53); AST (GOT) 41 U/L (15-37); BLOOD UREA NITROGEN 101 MG/DL (7-18); GLOMERULAR FILTRATION RATE 6 ML/MIN (>89); TOTAL BILIRUBIN ADULT 0.6 MG/DL (0.2-1.0)
[2017-06-13] MEDS ORDERED: NOREPINEPHRINE INJ 4 MG in SODIUM CHLOR 0.9% 250 ML INJ 246 ML IV PRN (07:15)
--- NOTE | 2017-06-13 07:16 | HHI.CCPN ---
Subjective Remarks/Hospital Course The patient is a 76-year-old female with past medical history of hypertension, hyperlipidemia, diabetes mellitus, COPD, chronic kidney disease, who was admitted to [facility] yesterday under hospitalist service for acute renal failure and COPD exacerbation. On arrival the patient had BUN of 99 with a creatinine of 14 and potassium level 4.8. Chest x-ray on admission showed no evidence of any acute cardiopulmonary disease. She was seen by Dr. Lee from nephrology service and placed on bicarb drip. A renal ultrasound was obtained which showed no evidence of hydronephrosis. Her renal function continued to worsen. A Halicat was called this morning for respiratory distress. She was subsequently transferred to ICU and was intubated by Dr. Davila, the ED physician. ABG post-intubation showed severe hypercapnic and metabolic acidosis with a pH of 6.89, CO2 63, bicarb 12, pAO2 211, saturation 96 % on PRVC mode rate of 14, tidal volume 500. I time one, PEEP five and FIO2 60% . Chest x-ray post-intubation showed ET tube above the brayan and bilateral interstitial pattern. Her laboratory data this morning is significant for hyperkalemia with potassium level 6.1, BUN of 118, creatinine 14.0. When seen the patient is intubated and sedated with Diprivan drip. Her current blood pressure is 179/90 with a pulse of 117. 06/02 Patient s/p HD 06/01 with 2L fluid removal, 2 L removed today as well. . Patient remains intubated on low dose Diprivan but awake, alert and follows commands. Afebrile. She went into Afib with RVR overnight and started on Amio drip. 06/03 Converted to sinus with PAC's on amiodarone. Remains on mechanical ventilation. UOP 50 ml over last 24 hours. Following commands on sedation, will do SBT. Plan for HD today per discussion with [employer]. 06/04 CPAP trial terminated yesterday after patient became tachycardic, anxious. HD was not performed yesterday but plan for today per nephrology. Will use Precedex to facilitate comfort with CPAP. UOP 150. 06/05: Patient had hemodialysis today with 3 L fluid removed. Tolerating CPAP well, awake alert following commands communicating by writing. Chest x-ray remains unchanged 06/06: Overnight placed on Precedex for agitation. Also required BIPAP for hypercapnea. Weaned off Precedex by afternoon today. Currently on Xanax when necessary. At this time on BiPAP. Patient is pleasant and communicative breathing comfortably. Bilateral wheezes on exam. I have started patient on IV Solu-Medrol, Symbicort and Spiriva 06/12: Reconsulted secondary to acute hypoxemic respiratory failure. Currently on BiPAP with significant acidosis therefore intubated. Central line placed in the left IJ. Subjective 06/13: Afebrile. Currently off phenylephrine drip. Remains intubated. Currently in sinus bradycardia. White blood cell count decreased to 16,000. Will attempt PSV trial today. Objective Vital Signs Date Time Temp Pulse Resp B/P (MAP) Pulse Ox O2 Delivery O2 Flow Rate FiO2 06/13/17 06:00 60 06/13/17 05:47 23 115/54 (74) 99 06/13/17 05:15 40 06/13/17 04:07 97.9 06/12/17 08:00 Bi-Pap 06/11/17 20:44 3.00 Intake and Output 06/13/17 06/13/17 06/14/17 08:00 16:00 00:00 Intake Total 550 ml Output Total 0 ml Balance 550 ml Result Diagram: 06/13/17 0455 06/13/17 0455 Other Results Microbiology Date/Time Source Procedure Growth Status 06/12/17 12:45 Blood Peripheral Aerobic Blood Culture Pending Received 06/12/17 12:45 Blood Peripheral Anaerobic Blood Culture Pending Received 06/12/17 09:30 Sputum Endotracheal Gram Stain - Final Resulted 06/12/17 09:30 Sputum Endotracheal Sputum Culture Pending Resulted 06/11/17 20:33 Urine Catheterized Urine Urine Culture - Preliminary NO GROWTH IN 24 HOURS. Resulted Imaging Last Impressions Chest X-Ray 06/12/17 0836 Signed Impressions: Service Date/Time: Monday, June 12, 2017 08:40 - CONCLUSION: 1. ETT in good position. Left IJ central line in good position. OGT beyond the GE junction. 2. No pneumothorax. 3. Stable changes of congestive heart failure. Berny Marie MD Renal Ultrasound 05/31/17 0000 Signed Impressions: Service Date/Time: Wednesday, May 31, 2017 08:54 - CONCLUSION: 1. Abnormal appearance to the left kidney with diminutive size and poor delineation of the parenchymal architecture. 2. No gross abnormality seen in the right kidney. Aramis Scott MD Objective Remarks GENERAL: Patient is 76 yo female, critically ill currently orotracheally intubated SKIN: Warm and dry. No rash. Well-perfused. HEAD: Normocephalic. EYES: No scleral icterus. No injection or drainage. NECK: Supple, trachea midline. No JVD or lymphadenopathy. Right IJ hemodialysis catheter left IJ CVL clean dry and intact CARDIOVASCULAR: Bradycardic, RR. S1, S2. No S4. Without murmurs, clicks, rubs RESPIRATORY: Coarse bibasilar breath sounds. Bilateral inspiratory and expiratory wheezing appreciated. GASTROINTESTINAL: Abdomen soft, non-tender, protuberant. Hypoactive bowel sounds are appreciated MUSCULOSKELETAL: 1+ edema all extremities, upper and lower. NEURO: Arousable on the ventilator. Moves all 4 extremities spontaneously. Currently not following commands. Procedures Extubated 06/05 Urinary Catheter: No Assessment to: Continue Vascular Central Line Catheter: Yes Assessment to: Continue Date of Insertion: Jun 12, 2017 Line: Central Venous Catheter Side: Left Location: Internal, Jugular A/P Assessment and Plan Neuro/Psych: Anxiety Patient is currently on propofol drip at 20 mics grams per kilogram per minute/ fentanyl drip at 50 g an hour for sedation/analgesia while intubated Goal of RASS -2 Daily sedation vacation Alprazolam 0.5 mg by mouth every 8 hours as needed for anxiety/home medication for anxiety] Acetaminophen 650 mg liquid every 6 hours when necessary for fever Pulm: Acute hypercapnic respiratory failure Acute COPD exacerbation Tobacco abuse Extubated 06/05/17. Reintubated 06/12 [facility] 18/525// Ventilator bundle Albuterol/ipratropium aerosols every 6 hours with albuterol aerosols every 2 hours. Dyspnea Budesonide 0.5/2 1 inhalation twice a day Spontaneous breathing trials/PSV trial today. Currently on methylprednisolone 40 mg every 12 hours Pulm following, Dr. Hammonds Chest x-ray ordered 11/8 AM. CV: Hypertension Hyperlipidemia Paroxysmal atrial fibrillation Monitor HR and BP and maintain MAP>65 mmHg. Currently on diltiazem 30 mg by tube every 6 hours. Holding enalapril 20 mg by tube twice a day/home medication Holding furosemide 20 milligrams by tube daily/home medication Echo showed 50-55% normal LV. 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 Diabetic nephropathy Hyperphosphatemia hyper-magnesium Hyponatremia Monitor renal function, I&O's and avoid nephrotoxins. HD started 06/01 with 2 KG removal, 06/02 with 2 KG removal. s/p HD 06/05 with 3L removed. Renal ultrasound 05/31 revealed medical renal disease left kidney/atrophy. Right kidney within normal limits Dr. Lee following. 3.5 L removed 06/12. On calcium acetate 1334 mg 3 times a day GI: Diarrhea present on admission On famotidine 20 mg by tube daily for GI prophylaxis. On Nepro goal 45 cc an hour for tube feeding On docusate sodium/senna 1 tablet twice a day for bowel regimen Loperamide 2 mg every 4 hours when necessary written for diarrhea if needed C diff negative. ID: Acute community acquired pneumonia Currently has completed ceftriaxone for total 8 day antibiotic course.. sputum culture 06/01: Klebsiella, E Coli S to ceftriaxone UA 06/11 pending Will reculture blood sputum and urine today. Along with Legionella and mechanically urinary antigens and influenza See orders We'll start on piperacillin/tazobactam and vancomycin today for possible HCAP. See orders Endo: Diabetes mellitus Detemir 25 units subcut q12 hours. High dose sliding scale Novulin R q4 hours. 60 insulin sliding scale past 24 hours. Check TSH Heme: Leukocytosis Anemia consistent with anemia of chronic kidney disease On iron sulfate 325 mg daily. Monitor CBC. Recheck hemoglobin this afternoon and in a.m. No obvious signs of bleeding at the present time. Continue Epogen lorena 10,000 units with hemodialysis GI prophylaxis with famotidine 20 mg daily and DVT prophylaxis with SCDs and heparin gtt Lines: Peripheral IV's, Right IJ vascath placed 06/01 . Left IJ CVL placed 06/12 Critical Care: The total critical care time was 35 minutes. Time to perform other separately billable procedures was not included in the critical care time. Mitchel Loera MD Jun 13, 2017 07:16
[2017-06-13] MEDS ORDERED: GLYCERIN ADULT 2 GM SUPP RECTAL PRN (07:30)
[2017-06-13] MEDS: RESP: BUDESONIDE 0.5 MG/2 ML NEB NEB SCH ×2 (07:50→19:28)
[2017-06-13] MEDS: RESP: ALBUTEROL 2.5 MG/IPRATROPIUM 0.5 MG NEB (SCH) NEB ×4 (07:50→19:28)
[2017-06-13] MEDS: CHLORHEXIDINE 0.12% (ORAL KIT) 15 ML CUP MT SCH ×4 (08:00→20:24)
[2017-06-13] MEDS: BENEPROTEIN POWDER 1 PACK G-TUBE SCH ×3 (09:00→18:00)
[2017-06-13] MEDS: VITAMIN B CMPLX/VITC/FOLIC AC CAP PO SCH (09:00)
[2017-06-13] MEDS: LACTULOSE SYRUP 20 GM/30 ML CUP PO SCH (09:07)
[2017-06-13] MEDS: FERROUS SULFATE 325 MG (65 MG ELEMENTAL IRON) TAB PO SCH (09:07)
[2017-06-13] MEDS: POLYETHYLENE GLYCOL 17 GM PKG PO SCH ×2 (09:07→20:46)
[2017-06-13] MEDS: INSULIN DETEMIR 100 UNITS/ML VIAL SQ SCH ×2 (09:08→20:46)
[2017-06-13] MEDS: CALCIUM ACETATE 667 MG CAP PO SCH ×3 (09:08→18:20)
[2017-06-13] MEDS: DOCUSATE SODIUM 50 MG/SENNA 8.6 MG TAB PO SCH ×2 (09:08→20:46)
[2017-06-13] MEDS: FAMOTIDINE 20 MG TAB NG SCH (09:08)
[2017-06-13] MEDS: SODIUM CHLORIDE 0.9% FLUSH 10 ML FLUSH IV FLUSH SCH ×5 (09:09→20:47)
[2017-06-13] MEDS ORDERED: HEPARIN-D5W 25,000 U/250 ML 250 ML IV PRN ×2 (10:45→11:45)
[2017-06-13 11:28] LABS: APTT (PATIENT) 126.5 SEC (24.3-30.1)
[2017-06-13] MEDS: methylPREDNISolone SOD SUCC 40 MG/1 ML VIAL IV PUSH SCH (13:01)
--- NOTE | 2017-06-13 14:07 | HHI.NPPN ---
Subjective History of Present Illness 76-year-old female with past medical history of hypertension, diabetes mellitus, hyperlipidemia, ischemic heart disease, chronic kidney disease, chronic obstructive pulmonary disease was admitted because of generalized weakness, decreased urine output. I he was called to see the patient for elevated BUN and creatinine. The patient is known to me from before. She has been following with me in the office and last time I saw her was on May 04 and at that time her creatinine was 2.2 with given the GFR of 19-20 she had advanced stage IV chronic kidney disease most likely because of diabetic nephropathy. Additional Remarks Patient is intubated now off sedation, following some commands. Review of Systems General General Remarks Intubated and sedated. Objective Data Data 06/13/17 06/14/17 19:00 07:00 Intake Total 240 ml Balance 240 ml IV Total 240 ml Vital Signs Date Time Temp Pulse Resp B/P (MAP) Pulse Ox O2 Delivery O2 Flow Rate FiO2 06/13/17 13:45 99 40 06/13/17 12:00 98.5 06/13/17 10:00 66 17 98 06/13/17 09:48 68 18 118/52 (74) 99 06/13/17 09:00 64 18 100 06/13/17 08:48 62 17 116/49 (71) 100 06/13/17 08:00 56 28 100 06/13/17 08:00 40 06/13/17 08:00 96.9 06/13/17 08:00 55 06/13/17 07:57 100 40 06/13/17 07:48 54 18 107/49 (68) 99 06/13/17 07:00 56 37 98 06/13/17 06:00 60 06/13/17 05:47 56 23 115/54 (74) 99 06/13/17 05:15 99 40 06/13/17 04:07 97.9 60 22 115/51 (72) 98 06/13/17 04:00 40 06/13/17 03:00 58 18 120/46 (70) 99 06/13/17 02:30 40 06/13/17 02:30 60 18 125/57 (79) 100 06/13/17 02:30 100 40 06/13/17 02:00 58 18 115/44 (67) 100 06/13/17 01:30 60 18 111/48 (69) 100 06/13/17 01:09 62 18 117/54 (75) 100 06/13/17 00:39 62 18 113/47 (69) 100 06/13/17 00:09 97.7 66 18 117/52 (73) 100 06/13/17 00:00 64 06/13/17 00:00 45 06/12/17 23:09 68 18 139/51 (80) 100 06/12/17 22:54 64 18 146/59 (88) 100 06/12/17 22:40 100 45 06/12/17 22:39 64 18 145/59 (87) 100 06/12/17 22:24 64 18 144/65 (91) 100 06/12/17 22:09 60 18 146/57 (86) 100 06/12/17 22:00 60 06/12/17 21:54 64 18 138/53 (81) 100 06/12/17 21:39 58 18 145/66 (92) 100 06/12/17 21:24 58 18 145/55 (85) 100 06/12/17 21:09 58 18 144/64 (90) 100 06/12/17 20:54 60 18 141/64 (89) 100 06/12/17 20:39 58 18 142/65 (90) 100 06/12/17 20:24 58 18 144/65 (91) 100 06/12/17 20:09 97.6 56 18 144/68 (93) 100 06/12/17 20:00 45 06/12/17 20:00 45 06/12/17 20:00 55 06/12/17 19:45 100 40 06/12/17 17:40 100 45 06/12/17 17:00 74 17 100 06/12/17 16:24 58 18 143/69 (93) 100 06/12/17 16:09 54 18 138/57 (84) 100 06/12/17 16:00 56 06/12/17 16:00 54 17 100 06/12/17 15:00 52 17 100 06/12/17 14:54 52 17 132/57 (82) 100 06/12/17 14:39 52 17 138/58 (84) 100 06/12/17 14:24 54 18 161/75 (103) 100 06/12/17 14:09 52 17 163/70 (101) 100 -: 06/13/17 0455 06/13/17 0455 Physical Exam General Appearance Remarks Intubated and sedated. Eyes Eye Exam: Pupils Equal Throat Throat Exam: Oral Mucosa [place] & Moist Neck Neck Exam: Neck Supple Pulmonary Resp Exam: Breath Sounds Equal, No Distress, Rhonchi, Decreased Bases, Diminished Breath Sounds, Poor Inspiratory Effort Cardiology CV Exam: Regular, Normal Sinus Rhythm Gastrointestinal/Abdomen GI Exam: Soft, Non-Tender, Bowel Sounds Present, Distended Extremeties Extremities Exam: Moderate Edema Neurologic Neuro Exam: Sedated Assessment/Plan Assessment Summary: [place]/Acute Renal Failure, Hypertension, CKD Stage IV Problem List: (1) Chronic kidney disease (CKD) ICD Codes: N18.9 - Chronic kidney disease, unspecified (2) Oliguria ICD Codes: R34 - Anuria and oliguria (3) Diarrhea ICD Codes: R19.7 - Diarrhea, unspecified (4) Metabolic acidosis ICD Codes: E87.2 - Acidosis Status: Acute (5) Uremia ICD Codes: N19 - Unspecified kidney failure Status: Acute (6) Acute renal failure ICD Codes: N17.9 - Acute kidney failure, unspecified Status: Acute Plan Patient has advance stage 4 chronic kidney disease, approach stage 5. Started on HD. Patient will need AVF, when stable and chcf HD. Patient has COPD with high CO2 and developing SOB off and on. BP is stable. Hgb. is better now,on Epogen. HD done in AM. Patient remain intubated , now off sedation. HD is due in AM. Hgb. drop slightly, will follow. On Epogen with HD. Problem Qualifiers (1) Chronic kidney disease (CKD): Qualified Codes: N18.5 - Chronic kidney disease, stage 5 (2) Acute renal failure: Qualified Codes: N17.9 - Acute kidney failure, unspecified Lexy Lee MD Jun 13, 2017 14:07
[2017-06-13 14:33] LABS: HEMATOCRIT 23.8 % (35.0-46.0); MEAN CELL VOLUME 80.6 FL (80.0-100.0); MEAN CORPUSCULAR HEMOGLOBIN 26.3 PG (27.0-34.0); MEAN CORPUSCULAR HGB CONC 32.7 % (32.0-36.0); PLATELET COUNT 198 TH/MM3 (150-450); RED BLOOD COUNT 2.95 MIL/MM3 (4.00-5.30); RED CELL DISTRIBUTION WIDTH 17.3 % (11.6-17.2); REVIEW FLAG FINAL; WHITE BLOOD COUNT 19.5 TH/MM3 (4.0-11.0)
[2017-06-13 14:34] LABS: APTT (PATIENT) 57.9 SEC (24.3-30.1)
--- NOTE | 2017-06-13 17:50 | HHI.PR ---
Subjective Remarks 76 YOWF with VDRF,Ac renal Failure,DM, Met acidosis No Fever On Vent On PRVC, Fi02 45% Sedated Tolerated CPAP 2 hrs Objective Vital Signs Vital Signs Date Time Temp Pulse Resp B/P (MAP) Pulse Ox O2 Delivery O2 Flow Rate FiO2 06/13/17 16:28 100 40 06/13/17 16:00 98.2 06/13/17 14:00 68 18 99 06/13/17 13:48 70 17 120/46 (70) 99 06/13/17 13:45 99 40 06/13/17 13:00 72 16 99 06/13/17 12:48 68 12 137/51 (79) 98 06/13/17 12:45 40 06/13/17 12:00 98.5 06/13/17 12:00 68 13 99 06/13/17 12:00 40 06/13/17 11:48 68 12 130/56 (80) 100 06/13/17 11:00 66 11 100 06/13/17 10:48 66 11 125/48 (73) 99 06/13/17 10:30 98 40 06/13/17 10:00 66 17 98 06/13/17 10:00 66 17 98 06/13/17 09:48 68 18 118/52 (74) 99 06/13/17 09:00 64 18 100 06/13/17 08:48 62 17 116/49 (71) 100 06/13/17 08:00 56 28 100 06/13/17 08:00 40 06/13/17 08:00 96.9 06/13/17 08:00 55 06/13/17 07:57 100 40 06/13/17 07:48 54 18 107/49 (68) 99 06/13/17 07:00 56 37 98 06/13/17 06:00 60 06/13/17 05:47 56 23 115/54 (74) 99 06/13/17 05:15 99 40 06/13/17 04:07 97.9 60 22 115/51 (72) 98 06/13/17 04:00 40 06/13/17 03:00 58 18 120/46 (70) 99 06/13/17 02:30 40 06/13/17 02:30 60 18 125/57 (79) 100 06/13/17 02:30 100 40 06/13/17 02:00 58 18 115/44 (67) 100 06/13/17 01:30 60 18 111/48 (69) 100 06/13/17 01:09 62 18 117/54 (75) 100 06/13/17 00:39 62 18 113/47 (69) 100 06/13/17 00:09 97.7 66 18 117/52 (73) 100 06/13/17 00:00 64 06/13/17 00:00 45 06/12/17 23:09 68 18 139/51 (80) 100 06/12/17 22:54 64 18 146/59 (88) 100 06/12/17 22:40 100 45 06/12/17 22:39 64 18 145/59 (87) 100 06/12/17 22:24 64 18 144/65 (91) 100 06/12/17 22:09 60 18 146/57 (86) 100 06/12/17 22:00 60 06/12/17 21:54 64 18 138/53 (81) 100 06/12/17 21:39 58 18 145/66 (92) 100 06/12/17 21:24 58 18 145/55 (85) 100 06/12/17 21:09 58 18 144/64 (90) 100 06/12/17 20:54 60 18 141/64 (89) 100 06/12/17 20:39 58 18 142/65 (90) 100 06/12/17 20:24 58 18 144/65 (91) 100 06/12/17 20:09 97.6 56 18 144/68 (93) 100 06/12/17 20:00 45 06/12/17 20:00 45 06/12/17 20:00 55 06/12/17 19:45 100 40 I/O 06/12/17 06/12/17 06/12/17 06/13/17 06/13/17 06/13/17 07:00 15:00 23:00 07:00 15:00 23:00 Intake Total 39.2 ml 250 ml 150 ml 550 ml 240 ml Output Total 200 ml 3500 ml 0 ml Balance -160.8 ml -3250 ml 150 ml 550 ml 240 ml Intake Oral 30 ml 0 ml IV Total 9.2 ml 250 ml 150 ml 150 ml 240 ml Tube Feeding 300 ml Tube Irrigant 100 ml Output Urine Total 200 ml 0 ml Hemodialysis 3500 ml # Bowel Movements 0 0 Result Diagram: 06/13/17 1410 06/13/17 0455 Objective Remarks GENERAL: WBWN WF, On NC SKIN: Warm and dry. HEAD: Normocephalic. EYES: No scleral icterus. No injection or drainage. NECK: Supple, trachea midline. No JVD or lymphadenopathy. CARDIOVASCULAR: Regular rate and rhythm without murmurs, gallops, or rubs. RESPIRATORY: Breath sounds equal bilaterally. No accessory muscle use. GASTROINTESTINAL: Abdomen soft, non-tender, nondistended. MUSCULOSKELETAL: No cyanosis, or edema. BACK: Nontender without obvious deformity. No CVA tenderness. A/P Assessment and Plan VDRF, s/p Extubation COPD Ac renal Failure Metabolic acidosis DM Nicotine use PLAN: Vent support PRVC,Fi02 45% Aerosol nebs Supplement 02 Monitor RYAN romero. Jac Hammonds MD Jun 13, 2017 17:50
[2017-06-13] MEDS: PROPOFOL 1000 MG/100 ML INJ 100 ML IV PRN (21:24)
[2017-06-13 21:59] LABS: APTT (PATIENT) 58.1 SEC (24.3-30.1)
[2017-06-14] VITALS (139 sets, daily range): BP systolic 89–168; BP diastolic 41–74; PULSE 55–148; RESP 15–37; TEMP 97.5–98.8; O2SAT 96–100
[2017-06-14] MEDS: INSULIN NovoLIN REGULAR SUPPLEMENTAL SCALE SQ SCH ×6 (00:41→23:50)
[2017-06-14] MEDS: methylPREDNISolone SOD SUCC 40 MG/1 ML VIAL IV PUSH SCH ×3 (00:42→23:50)
[2017-06-14] MEDS: DILTIAZEM HCL 60 MG TAB PO SCH ×4 (00:42→11:58)
[2017-06-14] MEDS: CHLORHEXIDINE GLUCONATE 2 % 1 PACK (2 CLOTHS) TOP SCH (04:00)
[2017-06-14] MEDS: PIPERACIL-TAZO 2.25 GM PREMIX 50 ML IV SCH ×3 (04:36→20:37)
[2017-06-14 04:46] LABS: AUTOMATED NEUTROPHIL # 20.5 TH/MM3 (1.8-7.7); BASOPHIL % 0.1 % (0.0-2.0); EOSINOPHIL % 0.1 % (0.0-4.0); HEMATOCRIT 23.9 % (35.0-46.0); LYMPHOCYTE # 0.7 TH/MM3 (1.0-4.8); MEAN CELL VOLUME 81.2 FL (80.0-100.0); MEAN CORPUSCULAR HEMOGLOBIN 27.3 PG (27.0-34.0); MEAN CORPUSCULAR HGB CONC 33.6 % (32.0-36.0); MONO % 3.4 % (0.0-8.0); NEUT % 93.4 % (16.0-70.0); PLATELET COUNT 182 TH/MM3 (150-450); RED BLOOD COUNT 2.94 MIL/MM3 (4.00-5.30); RED CELL DISTRIBUTION WIDTH 18.2 % (11.6-17.2); WHITE BLOOD COUNT 21.9 TH/MM3 (4.0-11.0)
[2017-06-14 04:48] LABS: HEMO FLAGS AUTO DIFF
[2017-06-14 04:59] LABS: CHLORIDE 92 MEQ/L (98-107); POTASSIUM 4.7 MEQ/L (3.5-5.1); SODIUM (NA) 135 MEQ/L (136-145)
[2017-06-14 05:03] LABS: ANION GAP 16 MEQ/L (5-15); BICARBONATE 26.7 MEQ/L (21.0-32.0); MAGNESIUM 2.7 MG/DL (1.5-2.5)
[2017-06-14 05:04] LABS: APTT (PATIENT) 50.8 SEC (24.3-30.1)
[2017-06-14 05:16] LABS: ALKALINE PHOSPHATASE 56 U/L (45-117); ALT (GPT) 78 U/L (10-53); AST (GOT) 21 U/L (15-37); BLOOD UREA NITROGEN 137 MG/DL (7-18); GLOMERULAR FILTRATION RATE 4 ML/MIN (>89); TOTAL BILIRUBIN ADULT 0.4 MG/DL (0.2-1.0)
--- NOTE | 2017-06-14 06:39 | HHI.CCPN ---
Subjective Remarks/Hospital Course The patient is a 76-year-old female with past medical history of hypertension, hyperlipidemia, diabetes mellitus, COPD, chronic kidney disease, who was admitted to [facility] yesterday under hospitalist service for acute renal failure and COPD exacerbation. On arrival the patient had BUN of 99 with a creatinine of 14 and potassium level 4.8. Chest x-ray on admission showed no evidence of any acute cardiopulmonary disease. She was seen by Dr. Lee from nephrology service and placed on bicarb drip. A renal ultrasound was obtained which showed no evidence of hydronephrosis. Her renal function continued to worsen. A Halicat was called this morning for respiratory distress. She was subsequently transferred to ICU and was intubated by Dr. Davila, the ED physician. ABG post-intubation showed severe hypercapnic and metabolic acidosis with a pH of 6.89, CO2 63, bicarb 12, pAO2 211, saturation 96 % on PRVC mode rate of 14, tidal volume 500. I time one, PEEP five and FIO2 60% . Chest x-ray post-intubation showed ET tube above the brayan and bilateral interstitial pattern. Her laboratory data this morning is significant for hyperkalemia with potassium level 6.1, BUN of 118, creatinine 14.0. When seen the patient is intubated and sedated with Diprivan drip. Her current blood pressure is 179/90 with a pulse of 117. 06/02 Patient s/p HD 06/01 with 2L fluid removal, 2 L removed today as well. . Patient remains intubated on low dose Diprivan but awake, alert and follows commands. Afebrile. She went into Afib with RVR overnight and started on Amio drip. 06/03 Converted to sinus with PAC's on amiodarone. Remains on mechanical ventilation. UOP 50 ml over last 24 hours. Following commands on sedation, will do SBT. Plan for HD today per discussion with [employer]. 06/04 CPAP trial terminated yesterday after patient became tachycardic, anxious. HD was not performed yesterday but plan for today per nephrology. Will use Precedex to facilitate comfort with CPAP. UOP 150. 06/05: Patient had hemodialysis today with 3 L fluid removed. Tolerating CPAP well, awake alert following commands communicating by writing. Chest x-ray remains unchanged 06/06: Overnight placed on Precedex for agitation. Also required BIPAP for hypercapnea. Weaned off Precedex by afternoon today. Currently on Xanax when necessary. At this time on BiPAP. Patient is pleasant and communicative breathing comfortably. Bilateral wheezes on exam. I have started patient on IV Solu-Medrol, Symbicort and Spiriva Reconsult 06/12: Reconsulted secondary to acute hypoxemic respiratory failure. Currently on BiPAP with significant acidosis therefore intubated. Central line placed in the left IJ. 06/13: Afebrile. Currently off phenylephrine drip. Remains intubated. Currently in sinus bradycardia. White blood cell count decreased to 16,000. Will attempt PSV trial today. Subjective 06/14: Resting comfortably in bed. Tolerated PSV trial still 8 PM last night. During tube feeds. Positive BM. Following simple commands on minimal sedation. Objective Vital Signs Date Time Temp Pulse Resp B/P (MAP) Pulse Ox O2 Delivery O2 Flow Rate FiO2 06/14/17 06:01 62 18 121/55 (77) 99 06/14/17 04:25 40 06/14/17 04:01 97.5 06/12/17 08:00 Bi-Pap 06/11/17 20:44 3.00 Intake and Output 06/14/17 06/14/17 06/15/17 08:00 16:00 00:00 Intake Total 2110 ml Output Total 0 ml Balance 2110 ml Result Diagram: 06/14/17 0430 06/14/17 0430 Other Results Microbiology Date/Time Source Procedure Growth Status 06/12/17 12:45 Blood Peripheral Aerobic Blood Culture - Preliminary NO GROWTH IN 1 DAY Resulted 06/12/17 12:45 Blood Peripheral Anaerobic Blood Culture - Preliminary NO GROWTH IN 1 DAY Resulted 06/13/17 18:31 Stool Stool Stool Occult Blood (MELISSA) - Final HEMOCCULT POSITIVE Complete 06/12/17 09:30 Sputum Endotracheal Gram Stain - Final Resulted 06/12/17 09:30 Sputum Endotracheal Sputum Culture - Preliminary HEAVY GROWTH NORMAL RESPIRATORY BRENT... Resulted 06/11/17 20:33 Urine Catheterized Urine Urine Culture - Preliminary Yeast-Id To Follow Resulted Imaging Last Impressions Chest X-Ray 06/14/17 0600 Signed Impressions: Service Date/Time: Monday, June 14, 2017 06:29 - CONCLUSION: 1. Cardiomegaly and findings of congestive heart failure. There has been no significant change when compared to the prior exam. Emilio Beckford MD Renal Ultrasound 05/31/17 0000 Signed Impressions: Service Date/Time: Wednesday, May 31, 2017 08:54 - CONCLUSION: 1. Abnormal appearance to the left kidney with diminutive size and poor delineation of the parenchymal architecture. 2. No gross abnormality seen in the right kidney. Aramis Scott MD Objective Remarks GENERAL: Patient is 76 yo female, critically ill currently orotracheally intubated SKIN: Warm and dry. No rash. Well-perfused. HEAD: Normocephalic. EYES: No scleral icterus. No injection or drainage. NECK: Supple, trachea midline. No JVD or lymphadenopathy. Right IJ hemodialysis catheter left IJ CVL clean dry and intact CARDIOVASCULAR: Bradycardic, RR. S1, S2. No S4. Without murmurs, clicks, rubs RESPIRATORY: Coarse bibasilar breath sounds. Bilateral inspiratory and expiratory wheezing appreciated. GASTROINTESTINAL: Abdomen soft, non-tender, protuberant. Hypoactive bowel sounds are appreciated MUSCULOSKELETAL: 1+ edema all extremities, upper and lower. NEURO: Arousable on the ventilator. Moves all 4 extremities spontaneously. Currently following simple commands Procedures Extubated 06/05 Vascular Central Line Catheter: Yes Assessment to: Continue Date of Insertion: Jun 12, 2017 Line: Central Venous Catheter Side: Left Location: Internal, Jugular A/P Assessment and Plan Neuro/Psych: Anxiety Patient is currently on propofol drip at 20 mics grams per kilogram per minute/ fentanyl drip at 10 g an hour for sedation/analgesia while intubated Goal of RASS -2 Daily sedation vacation Alprazolam 0.5 mg by mouth every 8 hours as needed for anxiety/home medication for anxiety] Acetaminophen 650 mg liquid every 6 hours when necessary for fever Pulm: Acute hypercapnic respiratory failure Acute COPD exacerbation Tobacco abuse Extubated 06/05/17. Reintubated 06/12 PRVC 18//08/11/39 Ventilator bundle Albuterol/ipratropium aerosols every 6 hours with albuterol aerosols every 2 hours. Dyspnea Budesonide 0.5/2 1 inhalation twice a day Spontaneous breathing trials/PSV trial today. Currently on methylprednisolone 40 mg every 12 hours Pulm following, Dr. Hammonds Chest x-ray ordered 06/14 AM. Revealed cardiomegaly, effusions. CV: Hypertension Hyperlipidemia Paroxysmal atrial fibrillation Monitor HR and BP and maintain MAP>65 mmHg. Currently on diltiazem 30 mg by tube every 6 hours. Holding enalapril 20 mg by tube twice a day/home medication Holding furosemide 20 milligrams by tube daily/home medication Echo showed 50-55% normal LV. 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 Diabetic nephropathy Hyperphosphatemia hyper-magnesium Hyponatremia Monitor renal function, I&O's and avoid nephrotoxins. HD started 06/01 with 2 KG removal, 06/02 with 2 KG removal. s/p HD 06/05 with 3L removed. Renal ultrasound 05/31 revealed medical renal disease left kidney/atrophy. Right kidney within normal limits Dr. Rosa matthew. 3.5 L removed 06/12. On calcium acetate 1334 mg 3 times a day GI: Diarrhea present on admission On famotidine 20 mg by tube daily for GI prophylaxis. On Nepro goal 45 cc an hour for tube feeding with beneprotein 1 packet 3 times a day On docusate sodium/senna 1 tablet twice a day for bowel regimen Loperamide 2 mg every 4 hours when necessary written for diarrhea if needed C diff negative. ID: Acute community acquired pneumonia Currently has completed ceftriaxone for total 8 day antibiotic course.. sputum culture 06/01: Klebsiella, E Coli S to ceftriaxone UA 06/11 Lacey species. Will reculture blood sputum and urine today. Along with Legionella and mechanically urinary antigens and influenza See orders We'll start on piperacillin/tazobactam and vancomycin today for possible HCAP. See orders Endo: Diabetes mellitus Detemir 30 units subcut q12 hours. High dose sliding scale Novulin R q4 hours. Heme: Leukocytosis Anemia consistent with anemia of chronic kidney disease On iron sulfate 325 mg daily. Monitor CBC. Recheck hemoglobin this afternoon and in a.m. No obvious signs of bleeding at the present time. Continue Epogen lorena 10,000 units with hemodialysis GI prophylaxis with famotidine 20 mg daily and DVT prophylaxis with SCDs and heparin gtt Lines: Peripheral IV's, Right IJ vascath placed 06/01 . Left IJ CVL placed 06/12 Critical Care: The total critical care time was 35 minutes. Time to perform other separately billable procedures was not included in the critical care time. Mitchel Loera MD Jun 14, 2017 06:39
--- NOTE | 2017-06-14 06:48 | RADRPT ---
EXAM DATE/TIME: 06/14/2017 06:29 [facility] COMPARISON: CHEST SINGLE AP, June 12, 2017, 8:40. INDICATIONS : Respiratory distress. MEDICAL HISTORY : Chronic obstructive pulmonary disease. Hypertension Diabetes mellitus type II. Stage IV kidney diseas e. SURGICAL HISTORY : Cholecystectomy. Appendectomy. Hysterectomy. umbilical hernia repair. ENCOUNTER: Subsequent ACUITY: 3 weeks PAIN SCORE: Non-responsive. LOCATION: Bilateral chest FINDINGS: The cardiac silhouette is enlarged in transverse diameter. Support lines and tubes are in satisfactor y position. There are findings of congestive heart failure with interstitial and alveolar opacity mateus aterally. Moderate size bilateral pleural effusions are identified. CONCLUSION: 1. Cardiomegaly and findings of congestive heart failure. There has been no significant change when c ompared to the prior exam. Emilio Beckford MD on June 14, 2017 at 6:46 Board Certified Radiologist. This report was verified electronically.
[2017-06-14 07:08] LABS: OVALOCYTES 1+ (NORMAL); SCAN/DIFF AUTO DIFF CONFIRMED; TEARDROP RBCS 1+ (NORMAL)
[2017-06-14] MEDS: ARTIFICIAL TEARS OPTH SOLN 15 ML BTL EACH EYE SCH ×3 (07:16→23:50)
[2017-06-14] MEDS: RESP: BUDESONIDE 0.5 MG/2 ML NEB NEB SCH ×2 (07:22→19:37)
[2017-06-14] MEDS: RESP: ALBUTEROL 2.5 MG/IPRATROPIUM 0.5 MG NEB (SCH) NEB ×5 (07:22→19:37)
[2017-06-14] MEDS: GENTAMICIN SULFATE (DIALYSIS USE ONLY) 20 MG/2 ML VIAL OTHER PRN (07:49)
[2017-06-14] MEDS: EPOETIN ALFA 10,000 UNITS/ML VIAL IV PUSH PRN (07:49)
[2017-06-14] MEDS: CHLORHEXIDINE 0.12% (ORAL KIT) 15 ML CUP MT SCH ×4 (08:00→20:47)
[2017-06-14] MEDS: BENEPROTEIN POWDER 1 PACK G-TUBE SCH ×3 (09:00→16:55)
[2017-06-14] MEDS: CALCIUM ACETATE 667 MG CAP PO SCH ×3 (09:00→16:55)
[2017-06-14] MEDS: DOCUSATE SODIUM 50 MG/SENNA 8.6 MG TAB PO SCH ×2 (09:00→20:37)
[2017-06-14] MEDS: LACTULOSE SYRUP 20 GM/30 ML CUP PO SCH (09:00)
[2017-06-14] MEDS: POLYETHYLENE GLYCOL 17 GM PKG PO SCH ×2 (09:00→20:37)
[2017-06-14] MEDS: SODIUM CHLORIDE 0.9% FLUSH 10 ML FLUSH IV FLUSH SCH ×5 (09:00→20:37)
[2017-06-14] MEDS: ALBUMIN 25% INJ 100 ML IV PRN ×2 (09:02→09:49)
[2017-06-14] MEDS: FERROUS SULFATE 325 MG (65 MG ELEMENTAL IRON) TAB PO SCH (11:58)
[2017-06-14] MEDS: FAMOTIDINE 20 MG TAB NG SCH (11:58)
[2017-06-14] MEDS: VITAMIN B CMPLX/VITC/FOLIC AC CAP PO SCH (11:59)
[2017-06-14] MEDS: FLUCONAZOLE SUSP 10 MG/ML 35 ML BTL PO SCH (11:59)
[2017-06-14] MEDS: INSULIN DETEMIR 100 UNITS/ML VIAL SQ SCH ×2 (11:59→20:44)
[2017-06-14] MEDS ORDERED: DIGOXIN 0.5 MG/2 ML VIAL IV PUSH ONE (13:30)
[2017-06-14] MEDS ORDERED: DILTIAZEM HCL 25 MG/5 ML VIAL IV ONE (13:30)
[2017-06-14] MEDS: DILTIAZEM HCL 60 MG TAB NG SCH ×2 (16:54→23:49)
--- NOTE | 2017-06-14 17:53 | HHI.PR ---
Subjective Remarks 76 YOWF with VDRF,Ac renal Failure,DM, Met acidosis No Fever On Vent On PRVC, Fi02 45% Sedated Had HD Developed AF with RVR Had Cardiazem bolus, converted to NSR Objective Vital Signs Vital Signs Date Time Temp Pulse Resp B/P (MAP) Pulse Ox O2 Delivery O2 Flow Rate FiO2 06/14/17 17:10 99 40 06/14/17 17:08 72 37 133/64 (87) 98 06/14/17 17:00 68 31 99 06/14/17 16:38 62 24 127/51 (76) 100 06/14/17 16:31 58 27 100 06/14/17 16:22 60 31 119/51 (73) 100 06/14/17 16:16 58 31 100 06/14/17 16:07 58 27 120/57 (78) 100 06/14/17 16:07 58 27 120/57 (78) 100 06/14/17 16:05 40 06/14/17 16:01 66 19 100 06/14/17 16:00 58 23 100 06/14/17 15:52 58 23 123/49 (73) 100 06/14/17 15:45 64 24 100 06/14/17 15:37 58 23 111/46 (67) 98 06/14/17 15:30 58 23 99 06/14/17 15:22 60 35 116/50 (72) 98 06/14/17 15:15 60 18 98 06/14/17 15:07 62 17 120/50 (73) 99 06/14/17 15:07 62 06/14/17 15:07 62 17 120/50 (73) 99 06/14/17 15:06 66 17 99 06/14/17 15:05 66 17 99 06/14/17 15:00 66 20 98 06/14/17 14:52 74 18 133/61 (85) 98 06/14/17 14:50 114 17 98 06/14/17 14:44 118 17 119/60 (79) 99 06/14/17 14:36 118 16 119/58 (78) 99 06/14/17 14:35 124 18 99 06/14/17 14:31 112 17 148/60 (89) 99 06/14/17 14:26 120 17 140/66 (90) 99 06/14/17 14:21 118 18 143/69 (93) 99 06/14/17 14:20 118 15 99 06/14/17 14:16 110 18 123/56 (78) 98 06/14/17 14:11 112 18 126/64 (84) 98 06/14/17 14:06 110 18 107/61 (76) 98 06/14/17 13:59 108 17 127/67 (87) 98 06/14/17 13:58 118 16 89/52 (64) 98 06/14/17 13:54 116 17 129/60 (83) 99 06/14/17 13:51 132 17 99 06/14/17 13:46 140 18 142/67 (92) 100 06/14/17 13:41 134 17 100 06/14/17 13:38 100 40 06/14/17 13:36 134 18 99 06/14/17 13:31 138 17 140/64 (89) 99 06/14/17 13:26 126 18 99 06/14/17 13:21 130 17 99 06/14/17 13:16 130 17 107/57 (74) 98 06/14/17 13:11 140 17 99 06/14/17 13:06 148 25 99 06/14/17 13:01 136 17 99 06/14/17 12:55 40 06/14/17 12:31 134 18 127/53 (77) 98 06/14/17 12:16 146 17 124/61 (82) 99 06/14/17 12:01 136 17 136/52 (80) 100 06/14/17 11:46 146 18 151/68 (95) 100 06/14/17 11:31 84 17 143/61 (88) 100 06/14/17 11:21 96 26 155/67 (96) 100 06/14/17 11:16 90 20 168/74 (105) 99 06/14/17 11:01 70 18 119/49 (72) 99 06/14/17 10:46 78 17 113/53 (73) 98 06/14/17 10:31 78 17 100/47 (64) 98 06/14/17 10:16 78 17 95/44 (61) 98 06/14/17 10:01 80 17 98 06/14/17 10:00 78 17 98 06/14/17 10:00 98 40 06/14/17 09:46 80 18 110/45 (66) 98 06/14/17 09:31 82 18 106/43 (64) 97 06/14/17 09:30 82 18 97 06/14/17 09:19 84 17 102/41 (61) 96 06/14/17 09:16 84 17 106/42 (63) 97 06/14/17 09:01 84 18 109/43 (65) 97 06/14/17 08:46 76 18 111/46 (67) 97 06/14/17 08:31 78 17 119/51 (73) 98 06/14/17 08:16 74 17 134/63 (86) 100 06/14/17 08:01 68 18 137/58 (84) 100 06/14/17 08:00 40 06/14/17 08:00 55 06/14/17 07:46 58 18 133/56 (81) 100 06/14/17 07:31 62 18 134/56 (82) 100 06/14/17 07:22 100 40 06/14/17 07:16 60 18 124/54 (77) 100 06/14/17 07:01 62 17 133/56 (81) 100 06/14/17 06:31 68 25 116/54 (74) 100 06/14/17 06:16 60 18 113/50 (71) 99 06/14/17 06:01 62 18 121/55 (77) 99 06/14/17 05:46 68 18 134/50 (78) 99 06/14/17 05:31 78 21 151/62 (91) 99 06/14/17 05:16 78 18 149/70 (96) 99 06/14/17 05:01 66 18 143/60 (87) 100 06/14/17 04:46 60 17 140/55 (83) 99 06/14/17 04:31 66 18 139/63 (88) 99 06/14/17 04:25 99 40 06/14/17 04:16 60 18 127/55 (79) 99 06/14/17 04:01 97.5 60 17 123/47 (72) 99 06/14/17 04:00 40 06/14/17 03:46 56 17 127/52 (77) 99 06/14/17 03:31 58 17 132/53 (79) 100 06/14/17 03:16 60 18 136/59 (84) 100 06/14/17 03:01 64 17 135/53 (80) 100 06/14/17 02:46 60 17 130/54 (79) 100 06/14/17 02:31 60 17 135/55 (81) 100 06/14/17 02:16 62 18 134/51 (78) 100 06/14/17 02:01 62 18 135/55 (81) 100 06/14/17 01:46 64 18 134/59 (84) 100 06/14/17 01:40 100 40 06/14/17 01:31 78 28 135/53 (80) 100 06/14/17 01:16 58 17 119/51 (73) 100 06/14/17 01:00 58 18 118/51 (73) 100 06/14/17 00:45 62 17 131/51 (77) 100 06/14/17 00:30 60 17 125/50 (75) 100 06/14/17 00:15 66 17 137/61 (86) 100 06/14/17 00:00 40 06/14/17 00:00 98.0 60 18 119/50 (73) 100 06/13/17 23:58 62 06/13/17 23:45 60 17 123/49 (73) 100 06/13/17 23:30 60 17 121/51 (74) 100 06/13/17 23:15 60 17 131/45 (73) 100 06/13/17 23:00 62 18 131/55 (80) 100 06/13/17 22:45 66 17 138/51 (80) 100 06/13/17 22:30 62 17 118/47 (70) 100 06/13/17 22:20 99 40 06/13/17 22:15 62 17 117/46 (69) 100 06/13/17 22:00 62 17 115/47 (69) 99 06/13/17 21:45 66 18 126/54 (78) 99 06/13/17 21:30 62 18 107/44 (65) 98 06/13/17 21:15 64 18 105/45 (65) 98 06/13/17 21:00 64 17 112/44 (66) 98 06/13/17 20:30 68 17 118/49 (72) 100 06/13/17 20:15 70 17 121/51 (74) 100 06/13/17 20:06 98.0 72 17 114/47 (69) 100 06/13/17 20:00 40 06/13/17 20:00 62 06/13/17 19:48 78 19 117/43 (67) 100 06/13/17 19:25 98 40 06/13/17 18:48 98 23 165/75 (105) 98 I/O 06/13/17 06/13/17 06/13/17 06/14/17 06/14/17 06/14/17 07:00 15:00 23:00 07:00 15:00 23:00 Intake Total 550 ml 240 ml 50 ml 2110 ml 250 ml Output Total 0 ml 150.0 ml 0 ml 3610.0 ml Balance 550 ml 240 ml -100.0 ml 2110 ml -3360.0 ml Intake Oral 0 ml IV Total 150 ml 240 ml 50 ml 435 ml 250 ml Tube Feeding 300 ml 1475 ml Tube Irrigant 100 ml 200 ml Output Urine Total 0 ml 0 ml Tube Feeding Residual Discard 150.0 ml 110.0 ml Hemodialysis 3500 ml # Bowel Movements 0 1 2 Result Diagram: 06/14/1742906/14/17429 Objective Remarks GENERAL: WBWN WF, On NC SKIN: Warm and dry. HEAD: Normocephalic. EYES: No scleral icterus. No injection or drainage. NECK: Supple, trachea midline. No JVD or lymphadenopathy. CARDIOVASCULAR: Regular rate and rhythm without murmurs, gallops, or rubs. RESPIRATORY: Breath sounds equal bilaterally. No accessory muscle use. GASTROINTESTINAL: Abdomen soft, non-tender, nondistended. MUSCULOSKELETAL: No cyanosis, or edema. BACK: Nontender without obvious deformity. No CVA tenderness. A/P Assessment and Plan VDRF, s/p Extubation COPD Ac renal Failure Metabolic acidosis DM Nicotine use AF with RVR, converted to NSR PLAN: Vent support PRVC,Fi02 40% Aerosol nebs Supplement 02 Monitor BS Alyce qid. CPAP trial in AM Jac Hammonds MD Jun 14, 2017 17:52
[2017-06-14] MEDS: PROPOFOL 1000 MG/100 ML INJ 100 ML IV PRN (20:38)
--- NOTE | 2017-06-14 21:23 | HHI.NPPN ---
Subjective History of Present Illness 76-year-old female with past medical history of hypertension, diabetes mellitus, hyperlipidemia, ischemic heart disease, chronic kidney disease, chronic obstructive pulmonary disease was admitted because of generalized weakness, decreased urine output. I he was called to see the patient for elevated BUN and creatinine. The patient is known to me from before. She has been following with me in the office and last time I saw her was on May 04 and at that time her creatinine was 2.2 with given the GFR of 19-20 she had advanced stage IV chronic kidney disease most likely because of diabetic nephropathy. Additional Remarks Patient is intubated and sedated, clinically same. Review of Systems General General Remarks Intubated and sedated. Objective Data Data 06/14/17 06/15/17 19:00 07:00 Intake Total 801 ml 100 ml Output Total 3610.0 ml Balance -2809.0 ml 100 ml IV Total 250 ml 100 ml Tube Feeding 551 ml Tube Feeding Residual Discard 110.0 ml Hemodialysis 3500 ml # Bowel Movements 1 Vital Signs Date Time Temp Pulse Resp B/P (MAP) Pulse Ox O2 Delivery O2 Flow Rate FiO2 06/14/17 19:35 100 40 06/14/17 18:31 60 31 99 06/14/17 18:23 60 29 135/59 (84) 99 06/14/17 18:16 58 31 98 06/14/17 18:08 58 33 128/55 (79) 98 06/14/17 18:01 60 33 98 06/14/17 18:00 98.8 60 34 98 06/14/17 17:53 62 31 135/58 (83) 98 06/14/17 17:38 64 33 125/50 (75) 98 06/14/17 17:23 72 25 137/62 (87) 99 06/14/17 17:10 99 40 06/14/17 17:08 72 37 133/64 (87) 98 06/14/17 17:08 72 37 98 06/14/17 17:00 68 31 99 06/14/17 16:38 62 24 127/51 (76) 100 06/14/17 16:31 58 27 100 06/14/17 16:22 60 31 119/51 (73) 100 06/14/17 16:16 58 31 100 06/14/17 16:07 58 27 120/57 (78) 100 06/14/17 16:07 58 27 120/57 (78) 100 06/14/17 16:05 40 06/14/17 16:01 66 19 100 06/14/17 16:00 58 23 100 06/14/17 15:52 58 23 123/49 (73) 100 06/14/17 15:45 64 24 100 06/14/17 15:37 58 23 111/46 (67) 98 06/14/17 15:30 58 23 99 06/14/17 15:22 60 35 116/50 (72) 98 06/14/17 15:15 60 18 98 06/14/17 15:07 62 17 120/50 (73) 99 06/14/17 15:07 62 06/14/17 15:07 62 17 120/50 (73) 99 06/14/17 15:06 66 17 99 06/14/17 15:05 66 17 99 06/14/17 15:00 66 20 98 06/14/17 14:52 74 18 133/61 (85) 98 06/14/17 14:50 114 17 98 06/14/17 14:44 118 17 119/60 (79) 99 06/14/17 14:36 118 16 119/58 (78) 99 06/14/17 14:35 124 18 99 06/14/17 14:31 112 17 148/60 (89) 99 06/14/17 14:26 120 17 140/66 (90) 99 06/14/17 14:21 118 18 143/69 (93) 99 06/14/17 14:20 118 15 99 06/14/17 14:16 110 18 123/56 (78) 98 06/14/17 14:11 112 18 126/64 (84) 98 06/14/17 14:06 110 18 107/61 (76) 98 06/14/17 13:59 108 17 127/67 (87) 98 06/14/17 13:58 118 16 89/52 (64) 98 06/14/17 13:54 116 17 129/60 (83) 99 06/14/17 13:51 132 17 99 06/14/17 13:46 140 18 142/67 (92) 100 06/14/17 13:41 134 17 100 06/14/17 13:38 100 40 06/14/17 13:36 134 18 99 06/14/17 13:31 138 17 140/64 (89) 99 06/14/17 13:26 126 18 99 06/14/17 13:21 130 17 99 06/14/17 13:16 130 17 107/57 (74) 98 06/14/17 13:11 140 17 99 06/14/17 13:06 148 25 99 06/14/17 13:01 136 17 99 06/14/17 12:55 40 06/14/17 12:31 134 18 127/53 (77) 98 06/14/17 12:16 146 17 124/61 (82) 99 06/14/17 12:01 136 17 136/52 (80) 100 06/14/17 11:46 146 18 151/68 (95) 100 06/14/17 11:31 84 17 143/61 (88) 100 06/14/17 11:21 96 26 155/67 (96) 100 06/14/17 11:16 90 20 168/74 (105) 99 06/14/17 11:01 70 18 119/49 (72) 99 06/14/17 10:46 78 17 113/53 (73) 98 06/14/17 10:31 78 17 100/47 (64) 98 06/14/17 10:16 78 17 95/44 (61) 98 06/14/17 10:01 80 17 98 06/14/17 10:00 78 17 98 06/14/17 10:00 98 40 06/14/17 09:46 80 18 110/45 (66) 98 06/14/17 09:31 82 18 106/43 (64) 97 06/14/17 09:30 82 18 97 06/14/17 09:19 84 17 102/41 (61) 96 06/14/17 09:16 84 17 106/42 (63) 97 06/14/17 09:01 84 18 109/43 (65) 97 06/14/17 08:46 76 18 111/46 (67) 97 06/14/17 08:31 78 17 119/51 (73) 98 06/14/17 08:16 74 17 134/63 (86) 100 06/14/17 08:01 68 18 137/58 (84) 100 06/14/17 08:00 40 06/14/17 08:00 55 11/8/17 07:46 58 18 133/56 (81) 100 06/14/17 07:31 62 18 134/56 (82) 100 06/14/17 07:22 100 40 06/14/17 07:16 60 18 124/54 (77) 100 06/14/17 07:01 62 17 133/56 (81) 100 06/14/17 06:31 68 25 116/54 (74) 100 06/14/17 06:16 60 18 113/50 (71) 99 06/14/17 06:01 62 18 121/55 (77) 99 06/14/17 05:46 68 18 134/50 (78) 99 06/14/17 05:31 78 21 151/62 (91) 99 06/14/17 05:16 78 18 149/70 (96) 99 06/14/17 05:01 66 18 143/60 (87) 100 06/14/17 04:46 60 17 140/55 (83) 99 06/14/17 04:31 66 18 139/63 (88) 99 06/14/17 04:25 99 40 06/14/17 04:16 60 18 127/55 (79) 99 06/14/17 04:01 97.5 60 17 123/47 (72) 99 06/14/17 04:00 40 06/14/17 03:46 56 17 127/52 (77) 99 06/14/17 03:31 58 17 132/53 (79) 100 06/14/17 03:16 60 18 136/59 (84) 100 06/14/17 03:01 64 17 135/53 (80) 100 06/14/17 02:46 60 17 130/54 (79) 100 06/14/17 02:31 60 17 135/55 (81) 100 06/14/17 02:16 62 18 134/51 (78) 100 06/14/17 02:01 62 18 135/55 (81) 100 06/14/17 01:46 64 18 134/59 (84) 100 06/14/17 01:40 100 40 06/14/17 01:31 78 28 135/53 (80) 100 06/14/17 01:16 58 17 119/51 (73) 100 06/14/17 01:00 58 18 118/51 (73) 100 06/14/17 00:45 62 17 131/51 (77) 100 06/14/17 00:30 60 17 125/50 (75) 100 06/14/17 00:15 66 17 137/61 (86) 100 06/14/17 00:00 40 06/14/17 00:00 98.0 60 18 119/50 (73) 100 06/13/17 23:58 62 06/13/17 23:45 60 17 123/49 (73) 100 06/13/17 23:30 60 17 121/51 (74) 100 06/13/17 23:15 60 17 131/45 (73) 100 06/13/17 23:00 62 18 131/55 (80) 100 06/13/17 22:45 66 17 138/51 (80) 100 06/13/17 22:30 62 17 118/47 (70) 100 06/13/17 22:20 99 40 06/13/17 22:15 62 17 117/46 (69) 100 06/13/17 22:00 62 17 115/47 (69) 99 06/13/17 21:45 66 18 126/54 (78) 99 06/13/17 21:30 62 18 107/44 (65) 98 -: 06/14/17 0430 06/14/17 0430 Physical Exam General Appearance Remarks Intubated and sedated. Eyes Eye Exam: Pupils Equal Throat Throat Exam: Oral Mucosa [place] & Moist Neck Neck Exam: Neck Supple Pulmonary Resp Exam: Breath Sounds Equal, No Distress, Rhonchi, Decreased Bases, Diminished Breath Sounds, Poor Inspiratory Effort Cardiology CV Exam: Regular, Normal Sinus Rhythm Gastrointestinal/Abdomen GI Exam: Soft, Non-Tender, Bowel Sounds Present, Distended Extremeties Extremities Exam: Moderate Edema Neurologic Neuro Exam: Sedated Assessment/Plan Assessment Summary: MIRACLE/Acute Renal Failure, Hypertension, CKD Stage IV Problem List: (1) Chronic kidney disease (CKD) ICD Codes: N18.9 - Chronic kidney disease, unspecified (2) Oliguria ICD Codes: R34 - Anuria and oliguria (3) Diarrhea ICD Codes: R19.7 - Diarrhea, unspecified (4) Metabolic acidosis ICD Codes: E87.2 - Acidosis Status: Acute (5) Uremia ICD Codes: N19 - Unspecified kidney failure Status: Acute (6) Acute renal failure ICD Codes: N17.9 - Acute kidney failure, unspecified Status: Acute Plan Patient has advance stage 4 chronic kidney disease, approach stage 5. Started on HD. Patient will need AVF, when stable and usp HD. Patient has COPD with high CO2 and developing SOB off and on. BP is stable. Hgb. is better now,on Epogen. HD done in AM. Patient remain intubated , now off sedation. HD done and 3.5 liters removed. BP is stable. Weaning as per CCM. Problem Qualifiers (1) Chronic kidney disease (CKD): Qualified Codes: N18.5 - Chronic kidney disease, stage 5 (2) Acute renal failure: Qualified Codes: N17.9 - Acute kidney failure, unspecified Lexy Lee MD Jun 14, 2017 21:23
[2017-06-15] VITALS (57 sets, daily range): BP systolic 113–202; BP diastolic 50–130; PULSE 54–118; RESP 10–31; TEMP 97.4–99.6; O2SAT 91–100
[2017-06-15] MEDS: CHLORHEXIDINE GLUCONATE 2 % 1 PACK (2 CLOTHS) TOP SCH (00:58)
[2017-06-15] MEDS: PROPOFOL 1000 MG/100 ML INJ 100 ML IV PRN ×3 (02:52→19:56)
[2017-06-15] MEDS: PIPERACIL-TAZO 2.25 GM PREMIX 50 ML IV SCH ×3 (04:24→19:50)
[2017-06-15] MEDS: INSULIN NovoLIN REGULAR SUPPLEMENTAL SCALE SQ SCH ×5 (04:29→19:51)
[2017-06-15 04:52] LABS: AUTOMATED NEUTROPHIL # 14.7 TH/MM3 (1.8-7.7); CHLORIDE 94 MEQ/L (98-107); HEMATOCRIT 22.4 % (35.0-46.0); HEMO FLAGS DIFF FINAL; LYMPH % 3.2 % (9.0-44.0); LYMPHOCYTE # 0.5 TH/MM3 (1.0-4.8); MEAN CELL VOLUME 80.4 FL (80.0-100.0); MEAN CORPUSCULAR HEMOGLOBIN 26.4 PG (27.0-34.0); MEAN CORPUSCULAR HGB CONC 32.8 % (32.0-36.0); MONO % 4.1 % (0.0-8.0); NEUT % 92.7 % (16.0-70.0); PLATELET COUNT 141 TH/MM3 (150-450); POTASSIUM 4.3 MEQ/L (3.5-5.1); RED BLOOD COUNT 2.79 MIL/MM3 (4.00-5.30); RED CELL DISTRIBUTION WIDTH 17.6 % (11.6-17.2); SODIUM (NA) 136 MEQ/L (136-145); WHITE BLOOD COUNT 15.8 TH/MM3 (4.0-11.0)
[2017-06-15 04:54] LABS: APTT (PATIENT) 38.2 SEC (24.3-30.1)
[2017-06-15 04:55] LABS: ANION GAP 13 MEQ/L (5-15); BICARBONATE 28.7 MEQ/L (21.0-32.0); MAGNESIUM 2.7 MG/DL (1.5-2.5)
[2017-06-15 05:04] LABS: ALKALINE PHOSPHATASE 54 U/L (45-117); ALT (GPT) 88 U/L (10-53); AST (GOT) 24 U/L (15-37); BLOOD UREA NITROGEN 102 MG/DL (7-18); GLOMERULAR FILTRATION RATE 6 ML/MIN (>89); TOTAL BILIRUBIN ADULT 0.5 MG/DL (0.2-1.0)
--- NOTE | 2017-06-15 05:58 | RADRPT ---
EXAM DATE/TIME: 06/15/2017 05:15 [place] COMPARISON: CHEST SINGLE AP, June 14, 2017, 6:29. INDICATIONS : Shortness of breath MEDICAL HISTORY : Chronic obstructive pulmonary disease. Hypertension Diabetes mellitus type II. Stage IV kidney diseas e. SURGICAL HISTORY : Cholecystectomy. Appendectomy. Hysterectomy. umbilical hernia repair. ENCOUNTER: Subsequent ACUITY: 3 weeks PAIN SCORE: Non-responsive. LOCATION: Bilateral chest FINDINGS: The cardiac silhouette is enlarged in transverse diameter. There are findings of congestive heart boone lure with interstitial and alveolar opacity bilaterally. There has been no significant change when co mpared to the prior exam. Support lines and tubes are in satisfactory position. A small left sided ef fusion is present. CONCLUSION: 1. Cardiomegaly and findings of congestive heart failure. There has been no significant change when c ompared to the prior exam. Emilio Beckford MD on June 15, 2017 at 5:55 Board Certified Radiologist. This report was verified electronically.
--- NOTE | 2017-06-15 06:25 | HHI.CCPN ---
Subjective Remarks/Hospital Course The patient is a 76-year-old female with past medical history of hypertension, hyperlipidemia, diabetes mellitus, COPD, chronic kidney disease, who was admitted to [facility] yesterday under hospitalist service for acute renal failure and COPD exacerbation. On arrival the patient had BUN of 99 with a creatinine of 14 and potassium level 4.8. Chest x-ray on admission showed no evidence of any acute cardiopulmonary disease. She was seen by Dr. Lee from nephrology service and placed on bicarb drip. A renal ultrasound was obtained which showed no evidence of hydronephrosis. Her renal function continued to worsen. A Halicat was called this morning for respiratory distress. She was subsequently transferred to ICU and was intubated by Dr. Davila, the ED physician. ABG post-intubation showed severe hypercapnic and metabolic acidosis with a pH of 6.89, CO2 63, bicarb 12, pAO2 211, saturation 96 % on PRVC mode rate of 14, tidal volume 500. I time one, PEEP five and FIO2 60% . Chest x-ray post-intubation showed ET tube above the brayan and bilateral interstitial pattern. Her laboratory data this morning is significant for hyperkalemia with potassium level 6.1, BUN of 118, creatinine 14.0. When seen the patient is intubated and sedated with Diprivan drip. Her current blood pressure is 179/90 with a pulse of 117. 06/02 Patient s/p HD 06/01 with 2L fluid removal, 2 L removed today as well. . Patient remains intubated on low dose Diprivan but awake, alert and follows commands. Afebrile. She went into Afib with RVR overnight and started on Amio drip. 06/03 Converted to sinus with PAC's on amiodarone. Remains on mechanical ventilation. UOP 50 ml over last 24 hours. Following commands on sedation, will do SBT. Plan for HD today per discussion with [employer]. 06/04 CPAP trial terminated yesterday after patient became tachycardic, anxious. HD was not performed yesterday but plan for today per nephrology. Will use Precedex to facilitate comfort with CPAP. UOP 150. 06/05: Patient had hemodialysis today with 3 L fluid removed. Tolerating CPAP well, awake alert following commands communicating by writing. Chest x-ray remains unchanged 06/06: Overnight placed on Precedex for agitation. Also required BIPAP for hypercapnea. Weaned off Precedex by afternoon today. Currently on Xanax when necessary. At this time on BiPAP. Patient is pleasant and communicative breathing comfortably. Bilateral wheezes on exam. I have started patient on IV Solu-Medrol, Symbicort and Spiriva Reconsult 06/12: Reconsulted secondary to acute hypoxemic respiratory failure. Currently on BiPAP with significant acidosis therefore intubated. Central line placed in the left IJ. 06/13: Afebrile. Currently off phenylephrine drip. Remains intubated. Currently in sinus bradycardia. White blood cell count decreased to 16,000. Will attempt PSV trial today. 06/14: Resting comfortably in bed. Tolerated PSV trial still 8 PM last night. During tube feeds. Positive BM. Following simple commands on minimal sedation. Subjective 06/15: Return to normal sinus rhythm. Diltiazem Initiated. Will Attempt PSV Trial Again Today. Positive BMs. We'll Check C. difficile. Objective Vital Signs Date Time Temp Pulse Resp B/P (MAP) Pulse Ox O2 Delivery O2 Flow Rate FiO2 06/15/17 05:30 64 18 154/68 (96) 100 06/15/17 04:25 40 06/15/17 04:00 99.1 06/12/17 08:00 Bi-Pap 06/11/17 20:44 3.00 Result Diagram: 06/15/17 0435 06/15/17 0435 Other Results Microbiology Date/Time Source Procedure Growth Status 06/12/17 12:45 Blood Peripheral Aerobic Blood Culture - Preliminary NO GROWTH IN 2 DAYS Resulted 06/12/17 12:45 Blood Peripheral Anaerobic Blood Culture - Preliminary NO GROWTH IN 2 DAYS Resulted 06/13/17 18:31 Stool Stool Stool Occult Blood (MELISSA) - Final HEMOCCULT POSITIVE Complete 06/12/17 09:30 Sputum Endotracheal Gram Stain - Final Complete 06/12/17 09:30 Sputum Endotracheal Sputum Culture - Final HEAVY GROWTH NORMAL RESPIRATORY BRENT Complete 06/11/17 20:33 Urine Catheterized Urine Urine Culture - Final Lacey Glabrata Lacey Albicans Complete Imaging Last Impressions Chest X-Ray 06/15/17 0600 Signed Impressions: Service Date/Time: June 05:15 - CONCLUSION: 1. Cardiomegaly and findings of congestive heart failure. There has been no significant change when compared to the prior exam. Emilio Beckford MD Renal Ultrasound 05/31/17 0000 Signed Impressions: Service Date/Time: Wednesday, May 31, 2017 08:54 - CONCLUSION: 1. Abnormal appearance to the left kidney with diminutive size and poor delineation of the parenchymal architecture. 2. No gross abnormality seen in the right kidney. Aramis Scott MD Objective Remarks GENERAL: Patient is 76 yo female, critically ill currently orotracheally intubated SKIN: Warm and dry. No rash. Well-perfused. HEAD: Normocephalic. EYES: No scleral icterus. No injection or drainage. NECK: Supple, trachea midline. No JVD or lymphadenopathy. Right IJ hemodialysis catheter left IJ CVL clean dry and intact CARDIOVASCULAR: Bradycardic, RR. S1, S2. No S4. Without murmurs, clicks, rubs RESPIRATORY: Coarse bibasilar breath sounds. Bilateral inspiratory and expiratory wheezing appreciated. GASTROINTESTINAL: Abdomen soft, non-tender, protuberant. Hypoactive bowel sounds are appreciated MUSCULOSKELETAL: 1+ edema all extremities, upper and lower. NEURO: Arousable on the ventilator. Moves all 4 extremities spontaneously. Currently following simple commands Procedures Extubated 06/05 Vascular Central Line Catheter: Yes Assessment to: Continue Date of Insertion: Jun 12, 2017 Line: Central Venous Catheter Side: Left Location: Internal, Jugular A/P Assessment and Plan Neuro/Psych: Anxiety Patient is currently on propofol drip at 20 mics grams per kilogram per minute/ fentanyl drip at 10 g an hour for sedation/analgesia while intubated Goal of RASS -2 Daily sedation vacation Alprazolam 0.5 mg by mouth every 8 hours as needed for anxiety/home medication for anxiety] Acetaminophen 650 mg liquid every 6 hours when necessary for fever Pulm: Acute hypercapnic respiratory failure Acute COPD exacerbation Tobacco abuse Extubated 06/05/17. Reintubated 06/12 PRVC 18//08/11/39 Ventilator bundle Albuterol/ipratropium aerosols every 6 hours with albuterol aerosols every 2 hours. Dyspnea Budesonide 0.5/2 1 inhalation twice a day Spontaneous breathing trials/PSV trial today. Urine output from yesterday due to A. fib with RVR Currently on methylprednisolone 40 mg every 12 hours Pulm following, Dr. Hammonds Chest x-ray ordered 06/15 AM. Revealed cardiomegaly, effusions. CV: Hypertension Hyperlipidemia Paroxysmal atrial fibrillation currently in sinus bradycardia Monitor HR and BP and maintain MAP>65 mmHg. Currently on diltiazem 30 mg by tube every 6 hours. Holding enalapril 20 mg by tube twice a day/home medication Holding furosemide 20 milligrams by tube daily/home medication Echo showed 50-55% normal LV. Possible lipomatous hypertrophy of the inter- atrial septum Currently holding atorvastatin 80 mg by mouth daily at bedtime for dyslipidemia/ home medication in light of elevated liver function tests Phenylephrine drip if needed to maintain mean arterial pressure greater than 65 Renal/FEN/: CKD Stage IV, now on HD and probable ESRD with custodial dialysis. Diabetic nephropathy Hyperphosphatemia hyper-magnesium Monitor renal function, I&O's and avoid nephrotoxins. HD started 06/01 with 2 KG removal, 06/02 with 2 KG removal. s/p HD 06/05 with 3L removed. Renal ultrasound 05/31 revealed medical renal disease left kidney/atrophy. Right kidney within normal limits Dr. Lee following. 3.5 L removed 06/14. On calcium acetate 1334 mg 3 times a day GI: Diarrhea present on admission. Recheck C. difficile today On famotidine 20 mg by tube daily for GI prophylaxis. Switch pantoprazole 40 mg IV twice a day On Nepro goal 45 cc an hour for tube feeding with beneprotein 1 packet 3 times a day. Hold with heme + stools. On docusate sodium/senna 1 tablet twice a day for bowel regimen will be held Loperamide 2 mg every 4 hours when necessary written for diarrhea if needed C diff negative. We'll consult GI for heme positive stools. ID: Acute community acquired pneumonia Asymptomatic candiduria Currently has completed ceftriaxone for total 8 day antibiotic course.. sputum culture 06/01: Klebsiella, E Coli S to ceftriaxone UA 06/11 Lacey although can/glabrata Will reculture blood sputum and urine today. Along with Legionella and mechanically urinary antigens and influenza See orders Continue piperacillin/tazobactam and vancomycin today for possible HCAP. See orders Endo: Diabetes mellitus Detemir 40 units subcut q12 hours. hold while NPO High dose sliding scale Novulin R q4 hours.. 70 units sliding scale insulin past 24 hours Heme: Leukocytosis Anemia consistent with anemia of chronic kidney disease Thrombocytopenia On iron sulfate 325 mg daily. Monitor CBC. Recheck hemoglobin this afternoon and in AM. Continue Epogen lorena 10,000 units with hemodialysis GI prophylaxis with famotidine 20 mg daily and DVT prophylaxis with SCDs and heparin gtt Noted Hemoccult positive. Hold heparin drip. Will need EGD/colonoscopy prior to long-term anticoagulation/oral medication Lines: Peripheral IV's, Right IJ vascath placed 06/01 . Left IJ CVL placed 06/12 Critical Care: The total critical care time was 35 minutes. Time to perform other separately billable procedures was not included in the critical care time. Mitchel Loera MD Jun 15, 2017 06:25
[2017-06-15] MEDS: ARTIFICIAL TEARS OPTH SOLN 15 ML BTL EACH EYE SCH ×3 (06:31→19:57)
[2017-06-15] MEDS: DILTIAZEM HCL 60 MG TAB NG SCH ×2 (06:40→11:48)
[2017-06-15] MEDS ORDERED: PANTOPRAZOLE SODIUM 40 MG VIAL IV PUSH SCH (06:45)
[2017-06-15] MEDS: RESP: BUDESONIDE 0.5 MG/2 ML NEB NEB SCH ×2 (07:42→19:16)
[2017-06-15] MEDS: RESP: ALBUTEROL 2.5 MG/IPRATROPIUM 0.5 MG NEB (SCH) NEB ×3 (07:42→19:17)
[2017-06-15] MEDS: POLYETHYLENE GLYCOL 17 GM PKG PO SCH ×2 (09:00→19:57)
[2017-06-15] MEDS: INSULIN DETEMIR 100 UNITS/ML VIAL SQ SCH ×2 (09:00→19:53)
[2017-06-15] MEDS: LACTULOSE SYRUP 20 GM/30 ML CUP PO SCH (09:00)
[2017-06-15] MEDS: BENEPROTEIN POWDER 1 PACK G-TUBE SCH ×3 (09:00→17:30)
[2017-06-15] MEDS: SODIUM CHLORIDE 0.9% FLUSH 10 ML FLUSH IV FLUSH SCH ×3 (09:00→19:52)
[2017-06-15] MEDS: CALCIUM ACETATE 667 MG CAP PO SCH ×3 (09:00→17:31)
[2017-06-15] MEDS: FERROUS SULFATE 325 MG (65 MG ELEMENTAL IRON) TAB PO SCH (09:00)
[2017-06-15] MEDS: VITAMIN B CMPLX/VITC/FOLIC AC CAP PO SCH (09:00)
[2017-06-15] MEDS: CHLORHEXIDINE 0.12% (ORAL KIT) 15 ML CUP MT SCH ×2 (09:27→19:51)
[2017-06-15] MEDS: PANTOPRAZOLE SODIUM 40 MG VIAL IV PUSH SCH ×2 (09:27→19:52)
[2017-06-15] MEDS: FLUCONAZOLE SUSP 10 MG/ML 35 ML BTL PO SCH (09:27)
[2017-06-15] MEDS: SODIUM CHLOR 0.9% 1000 ML INJ 1,000 ML IV SCH (09:30)
[2017-06-15] MEDS: methylPREDNISolone SOD SUCC 40 MG/1 ML VIAL IV PUSH SCH (11:48)
[2017-06-15 12:06] LABS: C. DIFF EPI 027 PRESUMPTIVE NEGATIVE (NEGATIVE)
--- NOTE | 2017-06-15 15:41 | HHI.NPPN ---
Subjective History of Present Illness 76-year-old female with past medical history of hypertension, diabetes mellitus, hyperlipidemia, ischemic heart disease, chronic kidney disease, chronic obstructive pulmonary disease was admitted because of generalized weakness, decreased urine output. I he was called to see the patient for elevated BUN and creatinine. The patient is known to me from before. She has been following with me in the office and last time I saw her was on May 04 and at that time her creatinine was 2.2 with given the GFR of 19-20 she had advanced stage IV chronic kidney disease most likely because of diabetic nephropathy. Additional Remarks Patient remain intubated and sedated. Review of Systems General General Remarks Intubated and sedated. Objective Data Data 06/15/17 06/16/17 19:00 07:00 Intake Total 1380 ml Balance 1380 ml IV Total 110 ml Tube Feeding 1170 ml Tube Irrigant 100 ml # Bowel Movements 4 Vital Signs Date Time Temp Pulse Resp B/P (MAP) Pulse Ox O2 Delivery O2 Flow Rate FiO2 06/15/17 14:31 60 15 141/64 (89) 97 06/15/17 14:01 58 18 152/70 (97) 98 06/15/17 14:00 58 06/15/17 14:00 58 18 98 06/15/17 13:31 80 16 152/69 (96) 94 06/15/17 13:01 66 17 150/63 (92) 95 06/15/17 12:31 66 18 151/69 (96) 97 06/15/17 12:15 62 17 148/62 (90) 99 06/15/17 12:04 76 26 174/64 (100) 100 06/15/17 12:00 40 06/15/17 12:00 86 06/15/17 12:00 97.4 86 31 202/130 (154) 100 06/15/17 11:30 64 14 177/75 (109) 100 06/15/17 11:00 98 30 06/15/17 11:00 68 13 164/68 (100) 100 06/15/17 10:30 62 14 159/63 (95) 100 06/15/17 10:00 66 14 164/57 (92) 100 06/15/17 10:00 66 06/15/17 09:30 72 10 173/77 (109) 100 06/15/17 09:00 64 10 168/74 (105) 100 06/15/17 08:30 74 19 168/74 (105) 100 06/15/17 08:20 40 06/15/17 08:00 97.6 62 17 145/64 (91) 100 06/15/17 08:00 40 06/15/17 08:00 58 06/15/17 07:50 100 40 06/15/17 07:30 54 17 133/55 (81) 100 06/15/17 07:00 62 18 137/69 (91) 100 06/15/17 06:30 62 17 149/65 (93) 100 06/15/17 06:00 70 18 147/73 (97) 100 06/15/17 05:30 64 18 154/68 (96) 100 06/15/17 05:00 74 17 150/64 (92) 100 06/15/17 04:30 60 18 143/54 (83) 100 06/15/17 04:25 100 40 06/15/17 04:00 99.1 58 18 140/63 (88) 100 06/15/17 04:00 40 06/15/17 03:30 60 17 141/58 (85) 100 06/15/17 03:00 60 17 135/51 (79) 100 06/15/17 02:49 60 17 136/54 (81) 100 06/15/17 02:05 99 40 06/15/17 02:00 100 17 113/61 (78) 99 06/15/17 01:08 110 18 120/61 (80) 99 06/15/17 00:38 118 17 133/65 (87) 99 06/15/17 00:23 114 19 128/61 (83) 100 06/15/17 00:08 99.0 108 17 129/53 (78) 100 06/15/17 00:08 108 06/15/17 00:00 40 06/14/17 23:53 68 22 152/59 (90) 100 06/14/17 23:38 70 20 153/58 (89) 100 06/14/17 23:23 70 25 158/59 (92) 100 06/14/17 23:08 70 18 159/66 (97) 100 06/14/17 23:00 64 06/14/17 22:53 64 18 150/54 (86) 100 06/14/17 22:45 100 40 06/14/17 22:38 66 18 132/51 (78) 100 06/14/17 22:23 72 23 139/52 (81) 100 06/14/17 22:08 68 18 160/57 (91) 100 06/14/17 21:53 68 18 156/59 (91) 100 06/14/17 21:38 78 19 165/51 (89) 100 06/14/17 21:31 76 35 164/66 (98) 100 06/14/17 21:23 78 23 147/47 (80) 97 06/14/17 21:08 70 26 146/65 (92) 99 06/14/17 20:53 70 35 145/63 (90) 99 06/14/17 20:38 76 18 158/52 (87) 100 06/14/17 20:23 68 19 151/65 (93) 100 06/14/17 20:08 98.0 68 18 148/62 (90) 100 06/14/17 20:00 68 06/14/17 20:00 40 06/14/17 19:53 68 18 150/59 (89) 100 06/14/17 19:38 72 23 150/66 (94) 100 06/14/17 19:35 100 40 06/14/17 19:23 74 18 150/69 (96) 100 06/14/17 19:08 66 17 150/59 (89) 100 06/14/17 18:31 60 31 99 06/14/17 18:23 60 29 135/59 (84) 99 06/14/17 18:16 58 31 98 06/14/17 18:08 58 33 128/55 (79) 98 06/14/17 18:01 60 33 98 06/14/17 18:00 98.8 60 34 98 06/14/17 17:53 62 31 135/58 (83) 98 06/14/17 17:38 64 33 125/50 (75) 98 06/14/17 17:23 72 25 137/62 (87) 99 06/14/17 17:10 99 40 06/14/17 17:08 72 37 133/64 (87) 98 06/14/17 17:08 72 37 98 06/14/17 17:00 68 31 99 06/14/17 16:38 62 24 127/51 (76) 100 06/14/17 16:31 58 27 100 06/14/17 16:22 60 31 119/51 (73) 100 06/14/17 16:16 58 31 100 06/14/17 16:07 58 27 120/57 (78) 100 06/14/17 16:07 58 27 120/57 (78) 100 06/14/17 16:05 40 06/14/17 16:01 66 19 100 06/14/17 16:00 58 23 100 06/14/17 15:52 58 23 123/49 (73) 100 06/14/17 15:45 64 24 100 -: 06/15/17 0435 06/15/17 0435 Microbiology 06/15/17 Influenza Types A,B Antigen (MELISSA) - Final, Complete NEGATIVE FOR FLU A AND B ANTIGEN.... Physical Exam General Appearance Remarks Intubated and sedated. Eyes Eye Exam: Pupils Equal Throat Throat Exam: Oral Mucosa [place] & Moist Neck Neck Exam: Neck Supple Pulmonary Resp Exam: Breath Sounds Equal, No Distress, Rhonchi, Decreased Bases, Diminished Breath Sounds, Poor Inspiratory Effort Cardiology CV Exam: Regular, Normal Sinus Rhythm Gastrointestinal/Abdomen GI Exam: Soft, Non-Tender, Bowel Sounds Present, Distended Extremeties Extremities Exam: Moderate Edema Neurologic Neuro Exam: Sedated Assessment/Plan Assessment Summary: [place]AC[place]/Acute Renal Failure, Hypertension, CKD Stage IV Problem List: (1) Chronic kidney disease (CKD) ICD Codes: N18.9 - Chronic kidney disease, unspecified (2) Oliguria ICD Codes: R34 - Anuria and oliguria (3) Diarrhea ICD Codes: R19.7 - Diarrhea, unspecified (4) Metabolic acidosis ICD Codes: E87.2 - Acidosis Status: Acute (5) Uremia ICD Codes: N19 - Unspecified kidney failure Status: Acute (6) Acute renal failure ICD Codes: N17.9 - Acute kidney failure, unspecified Status: Acute Plan Patient has advance stage 4 chronic kidney disease, approach stage 5. Started on HD. Patient will need AVF, when stable and detention HD. Patient has COPD with high CO2 and developing SOB off and on. BP is stable. Hgb. is better now,on Epogen. HD done yesterday. Patient remain intubated , and on sedation. BP is stable. Weaning as per CCM. HD will be in AM. Problem Qualifiers (1) Chronic kidney disease (CKD): Qualified Codes: N18.5 - Chronic kidney disease, stage 5 (2) Acute renal failure: Qualified Codes: N17.9 - Acute kidney failure, unspecified Lexy Lee MD Jun 15, 2017 15:41
[2017-06-15] MEDS: RESP: ALBUTEROL 2.5 MG/3 ML NEB (PRN) NEB (16:55)
[2017-06-15 17:29] LABS: HEMATOCRIT 23.6 % (35.0-46.0); REVIEW FLAG FINAL
[2017-06-15] MEDS: DILTIAZEM HCL 30 MG TAB NG SCH (17:30)
--- NOTE | 2017-06-15 18:17 | HHI.PR ---
Subjective Remarks 76 YOWF with VDRF,Ac renal Failure,DM, Met acidosis No Fever On Vent Sedated Had HD Alert, awake Tolerated CPAP Objective Vital Signs Vital Signs Date Time Temp Pulse Resp B/P (MAP) Pulse Ox O2 Delivery O2 Flow Rate FiO2 06/15/17 18:01 64 18 140/64 (89) 98 06/15/17 18:01 64 06/15/17 17:31 64 18 142/68 (92) 99 06/15/17 17:08 99 30 06/15/17 17:01 64 18 144/65 (91) 100 06/15/17 16:31 64 17 152/69 (96) 98 06/15/17 16:01 98.4 60 17 153/73 (99) 98 06/15/17 16:01 60 06/15/17 16:00 40 06/15/17 15:31 60 17 127/52 (77) 96 06/15/17 15:00 60 18 132/51 (78) 96 06/15/17 14:31 60 15 141/64 (89) 97 06/15/17 14:01 58 18 152/70 (97) 98 06/15/17 14:00 97 30 06/15/17 14:00 58 06/15/17 14:00 58 18 98 06/15/17 13:31 80 16 152/69 (96) 94 06/15/17 13:01 66 17 150/63 (92) 95 06/15/17 12:31 66 18 151/69 (96) 97 06/15/17 12:15 62 17 148/62 (90) 99 06/15/17 12:04 76 26 174/64 (100) 100 06/15/17 12:00 40 06/15/17 12:00 86 06/15/17 12:00 97.4 86 31 202/130 (154) 100 06/15/17 11:30 64 14 177/75 (109) 100 06/15/17 11:00 98 30 06/15/17 11:00 68 13 164/68 (100) 100 06/15/17 10:30 62 14 159/63 (95) 100 06/15/17 10:00 66 14 164/57 (92) 100 06/15/17 10:00 66 06/15/17 09:30 72 10 173/77 (109) 100 06/15/17 09:00 64 10 168/74 (105) 100 06/15/17 08:30 74 19 168/74 (105) 100 06/15/17 08:20 40 06/15/17 08:00 97.6 62 17 145/64 (91) 100 06/15/17 08:00 40 06/15/17 08:00 58 06/15/17 07:50 100 40 06/15/17 07:30 54 17 133/55 (81) 100 06/15/17 07:00 62 18 137/69 (91) 100 06/15/17 06:30 62 17 149/65 (93) 100 06/15/17 06:00 70 18 147/73 (97) 100 06/15/17 05:30 64 18 154/68 (96) 100 06/15/17 05:00 74 17 150/64 (92) 100 06/15/17 04:30 60 18 143/54 (83) 100 06/15/17 04:25 100 40 06/15/17 04:00 99.1 58 18 140/63 (88) 100 06/15/17 04:00 40 06/15/17 03:30 60 17 141/58 (85) 100 06/15/17 03:00 60 17 135/51 (79) 100 06/15/17 02:49 60 17 136/54 (81) 100 06/15/17 02:05 99 40 06/15/17 02:00 100 17 113/61 (78) 99 06/15/17 01:08 110 18 120/61 (80) 99 06/15/17 00:38 118 17 133/65 (87) 99 06/15/17 00:23 114 19 128/61 (83) 100 06/15/17 00:08 99.0 108 17 129/53 (78) 100 06/15/17 00:08 108 06/15/17 00:00 40 06/14/17 23:53 68 22 152/59 (90) 100 06/14/17 23:38 70 20 153/58 (89) 100 06/14/17 23:23 70 25 158/59 (92) 100 06/14/17 23:08 70 18 159/66 (97) 100 06/14/17 23:00 64 06/14/17 22:53 64 18 150/54 (86) 100 06/14/17 22:45 100 40 06/14/17 22:38 66 18 132/51 (78) 100 06/14/17 22:23 72 23 139/52 (81) 100 06/14/17 22:08 68 18 160/57 (91) 100 06/14/17 21:53 68 18 156/59 (91) 100 06/14/17 21:38 78 19 165/51 (89) 100 06/14/17 21:31 76 35 164/66 (98) 100 06/14/17 21:23 78 23 147/47 (80) 97 06/14/17 21:08 70 26 146/65 (92) 99 06/14/17 20:53 70 35 145/63 (90) 99 06/14/17 20:38 76 18 158/52 (87) 100 06/14/17 20:23 68 19 151/65 (93) 100 06/14/17 20:08 98.0 68 18 148/62 (90) 100 06/14/17 20:00 68 06/14/17 20:00 40 06/14/17 19:53 68 18 150/59 (89) 100 06/14/17 19:38 72 23 150/66 (94) 100 06/14/17 19:35 100 40 06/14/17 19:23 74 18 150/69 (96) 100 06/14/17 19:08 66 17 150/59 (89) 100 06/14/17 18:31 60 31 99 06/14/17 18:23 60 29 135/59 (84) 99 I/O 06/14/17 06/14/17 06/14/17 06/15/17 06/15/17 06/15/17 07:00 15:00 23:00 07:00 15:00 23:00 Intake Total 2110 ml 250 ml 651 ml 955 ml 1380 ml 577 ml Output Total 0 ml 3610.0 ml Balance 2110 ml -3360.0 ml 651 ml 955 ml 1380 ml 577 ml IV Total 435 ml 250 ml 100 ml 955 ml 110 ml 457 ml Tube Feeding 1475 ml 551 ml 1170 ml Tube Irrigant 200 ml 100 ml Other 120 ml Output Urine Total 0 ml Tube Feeding Residual Discard 110.0 ml Hemodialysis 3500 ml # Bowel Movements 2 1 4 5 Result Diagram: 06/15/17 1720 06/15/17 0435 Objective Remarks GENERAL: WBWN WF, On NC SKIN: Warm and dry. HEAD: Normocephalic. EYES: No scleral icterus. No injection or drainage. NECK: Supple, trachea midline. No JVD or lymphadenopathy. CARDIOVASCULAR: Regular rate and rhythm without murmurs, gallops, or rubs. RESPIRATORY: Breath sounds equal bilaterally. No accessory muscle use. GASTROINTESTINAL: Abdomen soft, non-tender, nondistended. MUSCULOSKELETAL: No cyanosis, or edema. BACK: Nontender without obvious deformity. No CVA tenderness. A/P Assessment and Plan VDRF, s/p Extubation COPD Ac renal Failure Metabolic acidosis DM Nicotine use AF with RVR, converted to NSR PLAN: Vent support Aerosol nebs Supplement 02 Monitor BS Alyce qid. Rest with Vent CPAP trial in AM and hope to extubate. Jac Hammonds MD Jun 15, 2017 18:17
[2017-06-15] MEDS: SODIUM CHLORIDE 0.9% FLUSH 10 ML FLUSH IV FLUSH PRN (19:52)
[2017-06-16] VITALS (67 sets, daily range): BP systolic 120–254; BP diastolic 51–160; PULSE 54–100; RESP 9–35; TEMP 98.4–99.8; O2SAT 89–100
[2017-06-16] MEDS: INSULIN NovoLIN REGULAR SUPPLEMENTAL SCALE SQ SCH ×7 (00:20→23:40)
[2017-06-16] MEDS: methylPREDNISolone SOD SUCC 40 MG/1 ML VIAL IV PUSH SCH ×3 (00:21→23:40)
[2017-06-16] MEDS: DILTIAZEM HCL 30 MG TAB NG SCH ×5 (00:21→23:39)
[2017-06-16] MEDS: PROPOFOL 1000 MG/100 ML INJ 100 ML IV PRN (01:20)
[2017-06-16] MEDS: CHLORHEXIDINE GLUCONATE 2 % 1 PACK (2 CLOTHS) TOP SCH (04:00)
[2017-06-16] MEDS: PIPERACIL-TAZO 2.25 GM PREMIX 50 ML IV SCH ×3 (04:19→19:48)
[2017-06-16 05:15] LABS: AUTOMATED NEUTROPHIL # 13.9 TH/MM3 (1.8-7.7); BASOPHIL % 0.1 % (0.0-2.0); EOSINOPHIL # 0.1 TH/MM3 (0-0.4); EOSINOPHIL % 0.7 % (0.0-4.0); HEMATOCRIT 21.2 % (35.0-46.0); LYMPH % 3.4 % (9.0-44.0); LYMPHOCYTE # 0.5 TH/MM3 (1.0-4.8); MEAN CELL VOLUME 81.2 FL (80.0-100.0); MEAN CORPUSCULAR HEMOGLOBIN 26.9 PG (27.0-34.0); MEAN CORPUSCULAR HGB CONC 33.1 % (32.0-36.0); MONO % 3.3 % (0.0-8.0); NEUT % 92.5 % (16.0-70.0); PLATELET COUNT 135 TH/MM3 (150-450); RED BLOOD COUNT 2.62 MIL/MM3 (4.00-5.30); RED CELL DISTRIBUTION WIDTH 18.2 % (11.6-17.2)
[2017-06-16 05:16] LABS: HEMO FLAGS DIFF FINAL
[2017-06-16] MEDS: ARTIFICIAL TEARS OPTH SOLN 15 ML BTL EACH EYE SCH ×3 (05:20→19:51)
[2017-06-16 05:21] LABS: POTASSIUM 4.8 MEQ/L (3.5-5.1)
[2017-06-16 05:24] LABS: BICARBONATE 23.8 MEQ/L (21.0-32.0)
[2017-06-16 05:28] LABS: APTT (PATIENT) 24.8 SEC (24.3-30.1)
--- NOTE | 2017-06-16 05:52 | MB ---
cc: MACK LEE M.D. DATE OF CONSULTATION 06/15/2017 DATE OF [address] Ibarra REASON FOR REFERRAL Anemia. The patient needs anticoagulation for A-fib. Thank you for the consultation. HISTORY OF PRESENT ILLNESS A 76-year-old lady who came to the hospital with COPD exacerbation. The patient had significant extended stay in the hospital where she was intubated in the beginning in the ICU, then she went to the floor and started to do well. The patient also has kidney failure but then today she deteriorated and she was having COPD exacerbation, ended up with intubation again. The patient is laying in bed unresponsive, not able to obtain any history except from reviewing the records. According to the nurse she has loose bowels with some diarrhea. Apparently she had C-diff negative x2 and she was on dialysis. Apparently the patient has volume overload and she had 3.5 liters taken with dialysis. PAST MEDICAL HISTORY Significant for - 1. Hypertension. 2. Diabetes. 3. COPD. 4. Chronic kidney disease on dialysis. ALLERGIES SULFA. MEDICATIONS Reviewed in the chart. FAMILY HISTORY Significant for cancer, not clear what type. SOCIAL HISTORY Long-time smoker and still smokes until admission. Social drinker. REVIEW OF SYSTEMS Unobtainable because of intubation and sedation. The patient is not responsive. PHYSICAL EXAMINATION GENERAL: A well-developed, well-nourished lady laying in bed with intubation, unable to cooperate because of intubation. VITAL SIGNS: Stable. No fever at this time. HEENT: Pupils are round, reactive to light. NECK: Supple. No JVD. CHEST: Bilateral expiratory rhonchi. CARDIAC: Normal. Regular rate and rhythm at this time. No murmur or gallop. ABDOMEN: Soft, not distended. EXTREMITIES: No edema at this time. NEUROLOGIC: Unable to evaluate because the patient is intubated. LABORATORY DATA C-diff was done twice including one today which was negative. Hepatitis was negative. PTT was 38.2. White count 15.8, hemoglobin 7.6, platelet 17.6. ASSESSMENT AND PLAN A 76-year-old lady with multiple medical problems including - 1. COPD exacerbation, currently intubated, this being managed by support manager. 2. Chronic renal failure. Patient on dialysis. This could be causing her anemia. 3. Hemoglobin has been stable at least for the last few times but was ordered and the patient never had high normal CBC. It was 10.8 on admission but then in the last week it was in the 7 range. 4. We will check stool for hemoccult. 5. We will monitor hemoglobin. 6. We will scope the patient when she is ready to be extubated, probably on Monday to make sure that she is feeling better and getting better. 7. As far as in the anticoagulation, if there is no active bleeding she can be started on anticoagulation despite the fact that her hemoglobin is low because it is most likely related to kidney or chronic disease. 8. We will follow up with you. MD FRANKY Rosales/MARCUS /8:41 PM /5:40 AM
--- NOTE | 2017-06-16 06:33 | HHI.CCPN ---
Subjective Remarks/Hospital Course The patient is a 76-year-old female with past medical history of hypertension, hyperlipidemia, diabetes mellitus, COPD, chronic kidney disease, who was admitted to [facility] yesterday under hospitalist service for acute renal failure and COPD exacerbation. On arrival the patient had BUN of 99 with a creatinine of 14 and potassium level 4.8. Chest x-ray on admission showed no evidence of any acute cardiopulmonary disease. She was seen by Dr. Lee from nephrology service and placed on bicarb drip. A renal ultrasound was obtained which showed no evidence of hydronephrosis. Her renal function continued to worsen. A Halicat was called this morning for respiratory distress. She was subsequently transferred to ICU and was intubated by Dr. Davila, the ED physician. ABG post-intubation showed severe hypercapnic and metabolic acidosis with a pH of 6.89, CO2 63, bicarb 12, pAO2 211, saturation 96 % on PRVC mode rate of 14, tidal volume 500. I time one, PEEP five and FIO2 60% . Chest x-ray post-intubation showed ET tube above the brayan and bilateral interstitial pattern. Her laboratory data this morning is significant for hyperkalemia with potassium level 6.1, BUN of 118, creatinine 14.0. When seen the patient is intubated and sedated with Diprivan drip. Her current blood pressure is 179/90 with a pulse of 117. 06/02 Patient s/p HD 06/01 with 2L fluid removal, 2 L removed today as well. . Patient remains intubated on low dose Diprivan but awake, alert and follows commands. Afebrile. She went into Afib with RVR overnight and started on Amio drip. 06/03 Converted to sinus with PAC's on amiodarone. Remains on mechanical ventilation. UOP 50 ml over last 24 hours. Following commands on sedation, will do SBT. Plan for HD today per discussion with MATERIALS PLANNING MANAGER. 06/04 CPAP trial terminated yesterday after patient became tachycardic, anxious. HD was not performed yesterday but plan for today per nephrology. Will use Precedex to facilitate comfort with CPAP. UOP 150. 06/05: Patient had hemodialysis today with 3 L fluid removed. Tolerating CPAP well, awake alert following commands communicating by writing. Chest x-ray remains unchanged 06/06: Overnight placed on Precedex for agitation. Also required BIPAP for hypercapnea. Weaned off Precedex by afternoon today. Currently on Xanax when necessary. At this time on BiPAP. Patient is pleasant and communicative breathing comfortably. Bilateral wheezes on exam. I have started patient on IV Solu-Medrol, Symbicort and Spiriva Reconsult 06/12: Reconsulted secondary to acute hypoxemic respiratory failure. Currently on BiPAP with significant acidosis therefore intubated. Central line placed in the left IJ. 06/13: Afebrile. Currently off phenylephrine drip. Remains intubated. Currently in sinus bradycardia. White blood cell count decreased to 16,000. Will attempt PSV trial today. 06/14: Resting comfortably in bed. Tolerated PSV trial still 8 PM last night. During tube feeds. Positive BM. Following simple commands on minimal sedation. 06/15: Return to normal sinus rhythm. Diltiazem Initiated. Will Attempt PSV Trial Again Today. Positive BMs. We'll Check C. difficile. Subjective 06/16: No acute issues overnight. Hemoglobin 7. Will transfuse 1 unit during hemodialysis. Attempt spontaneous breathing trials postdialysis with attempt extubated. Objective Vital Signs Date Time Temp Pulse Resp B/P (MAP) Pulse Ox O2 Delivery O2 Flow Rate FiO2 06/16/17 06:01 54 18 129/51 (77) 98 06/16/17 04:31 99.4 06/16/17 04:03 30 06/12/17 08:00 Bi-Pap Intake and Output 06/16/17 06/16/17 06/17/17 08:00 16:00 00:00 Intake Total 269 ml Balance 269 ml Result Diagram: 06/16/17 0504 06/16/17 0504 Other Results Microbiology Date/Time Source Procedure Growth Status 06/12/17 12:45 Blood Peripheral Aerobic Blood Culture - Preliminary NO GROWTH IN 3 DAYS Resulted 06/12/17 12:45 Blood Peripheral Anaerobic Blood Culture - Preliminary NO GROWTH IN 3 DAYS Resulted 06/13/17 18:31 Stool Stool Stool Occult Blood (MELISSA) - Final HEMOCCULT POSITIVE Complete 06/15/17 06:50 Nasal Aspirate Influenza Types A,B Antigen (MELISSA) - Final NEGATIVE FOR FLU A AND B ANTIGEN.... Complete 06/11/17 20:33 Urine Catheterized Urine Urine Culture - Final Lacey Glabrata Lacey Albicans Complete Imaging Last Impressions Chest X-Ray 06/15/17 0600 Signed Impressions: Service Date/Time: June 05:15 - CONCLUSION: 1. Cardiomegaly and findings of congestive heart failure. There has been no significant change when compared to the prior exam. Emilio Beckford MD Renal Ultrasound 05/31/17 0000 Signed Impressions: Service Date/Time: Wednesday, May 31, 2017 08:54 - CONCLUSION: 1. Abnormal appearance to the left kidney with diminutive size and poor delineation of the parenchymal architecture. 2. No gross abnormality seen in the right kidney. Aramis Scott MD Objective Remarks GENERAL: Patient is 76 yo female, critically ill currently orotracheally intubated SKIN: Warm and dry. No rash. Well-perfused. HEAD: Normocephalic. EYES: No scleral icterus. No injection or drainage. NECK: Supple, trachea midline. No JVD or lymphadenopathy. Right IJ hemodialysis catheter left IJ CVL clean dry and intact CARDIOVASCULAR: Bradycardic, RR. S1, S2. No S4. Without murmurs, clicks, rubs RESPIRATORY: Coarse bibasilar breath sounds. Bilateral inspiratory and expiratory wheezing appreciated. GASTROINTESTINAL: Abdomen soft, non-tender, protuberant. Hypoactive bowel sounds are appreciated MUSCULOSKELETAL: 1+ edema all extremities, upper and lower. NEURO: Arousable on the ventilator. Moves all 4 extremities spontaneously. Currently following simple commands Procedures Extubated 06/05 Date of Insertion: Jun 12, 2017 Line: Central Venous Catheter Side: Left Location: Internal, Jugular A/P Assessment and Plan Neuro/Psych: Anxiety Patient is currently on propofol drip at 10 mics grams per kilogram per minute/ fentanyl drip as needed for sedation/analgesia while intubated Goal of RASS -2 Daily sedation vacation Alprazolam 0.5 mg by mouth every 8 hours as needed for anxiety/home medication for anxiety] Acetaminophen 650 mg liquid every 6 hours when necessary for fever Pulm: Acute hypercapnic respiratory failure Acute COPD exacerbation Tobacco abuse Extubated 06/05/17. Reintubated 06/12 PRVC 18/525/1//40 Ventilator bundle Albuterol/ipratropium aerosols every 6 hours with albuterol aerosols every 2 hours. Dyspnea Budesonide 0.5/2 1 inhalation twice a day Spontaneous breathing trials/PSV trial today. Urine output from yesterday due to A. fib with RVR Currently on methylprednisolone 40 mg every 12 hours Pulm following, Dr. Hammonds Chest x-ray ordered 06/15 AM. Revealed cardiomegaly, effusions. Repeat in a.m. 06/17 CV: Hypertension Hyperlipidemia Paroxysmal atrial fibrillation currently in sinus bradycardia Monitor HR and BP and maintain MAP>65 mmHg. Currently on diltiazem 30 mg by tube every 6 hours. Holding enalapril 20 mg by tube twice a day/home medication Holding furosemide 20 milligrams by tube daily/home medication Echo showed 50-55% normal LV. 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 Diabetic nephropathy Hyperphosphatemia hyper-magnesium Monitor renal function, I&O's and avoid nephrotoxins. HD started 06/01 with 2 KG removal, 06/02 with 2 KG removal. s/p HD 06/05 with 3L removed. Renal ultrasound 05/31 revealed medical renal disease left kidney/atrophy. Right kidney within normal limits Dr. Lee following. 3.5 L removed 06/14. On calcium acetate 1334 mg 3 times a day GI: Diarrhea present on admission. Recheck C. difficile today On pantoprazole 40 mg IV twice a day Restart Nepro goal 45 cc an hour for tube feeding with beneprotein 1 packet 3 times a day. On docusate sodium/senna 1 tablet twice a day for bowel regimen will be held in light of diarrhea Loperamide 2 mg every 4 hours when necessary written for diarrhea if needed C diff negative. 2 We'll consult GI for heme positive stools. Likely endoscopy on Monday after extubation ID: Acute community acquired pneumonia Asymptomatic candiduria Currently has completed ceftriaxone for total 8 day antibiotic course.. sputum culture 06/01: Klebsiella, E Coli S to ceftriaxone UA 06/11 Lacey although can/glabrata Will reculture blood sputum and urine today. Along with Legionella and mechanically urinary antigens and influenza See orders Continue piperacillin/tazobactam and vancomycin today for possible HCAP. See orders Endo: Diabetes mellitus Detemir 40 units subcut q12 hours switch to 10 units subcutaneous every 12 hours while nothing by mouth/restarting tube feeds High dose sliding scale Novulin R q4 hours.. Heme: Leukocytosis Anemia consistent with anemia of chronic kidney disease Thrombocytopenia On iron sulfate 325 mg daily. Monitor CBC. Continue Epogen lorena 10,000 units with hemodialysis GI prophylaxis with pantoprazole 40 mill grams IV twice a day and DVT prophylaxis with SCDs and holding heparin drip with anemia Noted Hemoccult positive. Hold heparin drip. Will need EGD/colonoscopy prior to long-term anticoagulation/oral medication Lines: Peripheral IV's, Right IJ vascath placed 06/01 . Left IJ CVL placed 06/12 Critical Care: The total critical care time was 35 minutes. Time to perform other separately billable procedures was not included in the critical care time. Mitchel Loera MD Jun 16, 2017 06:33
[2017-06-16] MEDS: RESP: ALBUTEROL 2.5 MG/IPRATROPIUM 0.5 MG NEB (SCH) NEB ×4 (07:46→19:40)
[2017-06-16] MEDS: RESP: BUDESONIDE 0.5 MG/2 ML NEB NEB SCH ×2 (07:47→19:40)
[2017-06-16] MEDS: SODIUM CHLOR 0.9% 1000 ML INJ 1,000 ML IV SCH (08:10)
[2017-06-16] MEDS: CHLORHEXIDINE 0.12% (ORAL KIT) 15 ML CUP MT SCH ×2 (08:11→19:51)
[2017-06-16] MEDS: POLYETHYLENE GLYCOL 17 GM PKG PO SCH ×2 (08:11→19:52)
[2017-06-16] MEDS: FERROUS SULFATE 325 MG (65 MG ELEMENTAL IRON) TAB PO SCH (08:11)
[2017-06-16] MEDS: LACTULOSE SYRUP 20 GM/30 ML CUP PO SCH (08:11)
[2017-06-16] MEDS: VITAMIN B CMPLX/VITC/FOLIC AC CAP PO SCH (08:12)
[2017-06-16] MEDS: SODIUM CHLORIDE 0.9% FLUSH 10 ML FLUSH IV FLUSH SCH ×3 (08:51→19:49)
[2017-06-16] MEDS: BENEPROTEIN POWDER 1 PACK G-TUBE SCH ×3 (08:51→17:11)
[2017-06-16] MEDS: FLUCONAZOLE SUSP 10 MG/ML 35 ML BTL PO SCH (08:52)
[2017-06-16] MEDS: PANTOPRAZOLE SODIUM 40 MG VIAL IV PUSH SCH ×2 (08:52→19:49)
[2017-06-16] MEDS ORDERED: BENEPROTEIN POWDER 1 PACK G-TUBE SCH (09:00)
[2017-06-16] MEDS: CALCIUM ACETATE 667 MG CAP PO SCH ×3 (09:36→17:11)
[2017-06-16] MEDS: INSULIN DETEMIR 100 UNITS/ML VIAL SQ SCH ×2 (09:36→19:48)
[2017-06-16] MEDS: ALPRAZolam 0.25 MG TAB PO PRN (12:54)
[2017-06-16] MEDS: EPOETIN ALFA 10,000 UNITS/ML VIAL IV PUSH PRN (14:52)
[2017-06-16] MEDS: HEPARIN SODIUM - IV 10,000 UNITS/10 ML VIAL PRN (14:53)
--- NOTE | 2017-06-16 17:51 | HHI.PR ---
Subjective Remarks 76 YOWF with VDRF,Ac renal Failure,DM, Met acidosis No Fever Sedated Had HD Extubated, on NC Alert awake Objective Vital Signs Vital Signs Date Time Temp Pulse Resp B/P (MAP) Pulse Ox O2 Delivery O2 Flow Rate FiO2 06/16/17 17:43 99 Nasal Cannula 4.00 06/16/17 17:35 99 Nasal Cannula 4 06/16/17 17:18 70 13 172/69 (103) 98 06/16/17 17:13 74 14 167/63 (97) 96 06/16/17 17:01 74 15 156/76 (102) 97 06/16/17 16:46 78 14 163/79 (107) 100 06/16/17 16:30 76 14 155/62 (93) 100 06/16/17 16:15 72 16 168/76 (106) 100 06/16/17 16:00 98.8 06/16/17 16:00 72 17 166/78 (107) 100 06/16/17 16:00 30 06/16/17 16:00 72 06/16/17 15:45 100 30 06/16/17 15:45 80 14 120/60 (80) 97 06/16/17 15:30 70 17 135/59 (84) 96 06/16/17 15:15 70 17 145/77 (99) 95 06/16/17 15:00 68 17 145/56 (85) 96 06/16/17 14:45 62 18 156/64 (94) 98 06/16/17 14:30 64 18 156/65 (95) 98 06/16/17 14:28 66 17 172/65 (100) 97 06/16/17 14:01 78 06/16/17 14:01 78 26 172/88 (116) 93 06/16/17 13:31 70 18 167/69 (101) 96 06/16/17 13:30 72 18 95 06/16/17 13:22 96 23 199/78 (118) 98 06/16/17 13:15 98 30 06/16/17 13:01 100 23 254/160 (191) 89 06/16/17 12:31 80 16 195/77 (116) 98 06/16/17 12:01 86 13 186/83 (117) 100 06/16/17 12:00 30 06/16/17 12:00 84 06/16/17 12:00 84 15 100 06/16/17 11:33 94 35 211/87 (128) 99 06/16/17 11:31 96 31 225/103 (143) 100 06/16/17 11:16 99.4 06/16/17 11:07 97 30 06/16/17 11:01 66 16 179/76 (110) 97 06/16/17 10:31 82 12 191/83 (119) 100 06/16/17 10:01 78 18 171/90 (117) 97 06/16/17 10:00 66 06/16/17 09:31 66 15 172/67 (102) 100 06/16/17 09:01 74 19 165/83 (110) 100 06/16/17 08:31 76 13 176/67 (103) 100 06/16/17 08:01 66 9 171/60 (97) 100 06/16/17 08:00 65 06/16/17 08:00 30 06/16/17 07:54 100 30 06/16/17 07:54 30 06/16/17 07:49 99.8 06/16/17 07:31 68 18 171/72 (105) 98 06/16/17 07:01 66 18 158/72 (100) 98 06/16/17 06:01 54 18 129/51 (77) 98 06/16/17 06:00 56 06/16/17 05:31 60 18 150/61 (90) 98 06/16/17 05:01 60 17 145/58 (87) 98 06/16/17 04:31 99.4 58 17 134/57 (82) 98 06/16/17 04:03 99 30 06/16/17 04:01 64 18 152/97 (115) 99 06/16/17 04:00 62 06/16/17 04:00 30 06/16/17 03:31 62 17 150/77 (101) 99 06/16/17 03:01 62 17 147/74 (98) 99 06/16/17 02:31 64 18 156/74 (101) 96 06/16/17 02:01 66 06/16/17 02:01 66 17 158/68 (98) 96 06/16/17 01:31 66 17 149/64 (92) 98 06/16/17 01:09 96 30 06/16/17 01:01 66 17 138/53 (81) 97 06/16/17 00:31 70 18 148/68 (94) 99 06/16/17 00:01 68 17 147/58 (87) 98 06/16/17 00:01 68 06/16/17 00:00 30 06/15/17 23:45 99.6 06/15/17 23:31 70 17 140/58 (85) 95 06/15/17 23:01 68 24 138/81 (100) 91 06/15/17 22:31 62 18 133/50 (77) 94 06/15/17 22:10 95 30 06/15/17 22:01 68 18 142/65 (90) 95 06/15/17 22:01 68 06/15/17 21:31 68 18 142/60 (87) 95 06/15/17 21:01 72 18 153/52 (85) 97 06/15/17 20:31 68 17 148/58 (88) 100 06/15/17 20:01 99.1 66 18 144/64 (90) 100 06/15/17 20:01 66 06/15/17 20:00 30 06/15/17 19:31 60 18 144/65 (91) 100 06/15/17 19:17 99 30 06/15/17 18:31 58 17 127/66 (86) 97 06/15/17 18:01 64 18 140/64 (89) 98 06/15/17 18:01 64 I/O 06/15/17 06/15/17 06/15/17 06/16/17 06/16/17 06/16/17 07:00 15:00 23:00 07:00 15:00 23:00 Intake Total 955 ml 1380 ml 627 ml 319 ml 400 ml Balance 955 ml 1380 ml 627 ml 319 ml 400 ml IV Total 955 ml 110 ml 507 ml 219 ml Tube Feeding 1170 ml 0 ml Packed Cells 400 ml Tube Irrigant 100 ml 100 ml Other 120 ml # Voids 2 # Bowel Movements 4 5 3 3 Result Diagram: 06/16/17 0504 06/16/17 0504 Objective Remarks GENERAL: WBWN WF, On NC SKIN: Warm and dry. HEAD: Normocephalic. EYES: No scleral icterus. No injection or drainage. NECK: Supple, trachea midline. No JVD or lymphadenopathy. CARDIOVASCULAR: Regular rate and rhythm without murmurs, gallops, or rubs. RESPIRATORY: Breath sounds equal bilaterally. No accessory muscle use. GASTROINTESTINAL: Abdomen soft, non-tender, nondistended. MUSCULOSKELETAL: No cyanosis, or edema. BACK: Nontender without obvious deformity. No CVA tenderness. A/P Assessment and Plan VDRF, s/p Extubation COPD Ac renal Failure Metabolic acidosis DM Nicotine use AF with RVR, converted to NSR PLAN: Aerosol nebs Supplement 02 Monitor RYAN Mead qid. Rest with Vent CPAP prn Jac Hammonds MD Jun 16, 2017 17:51
[2017-06-16] MEDS: SODIUM CHLORIDE 0.9% FLUSH 10 ML FLUSH IV FLUSH PRN (19:49)
[2017-06-16] MEDS: cloNIDine HCL 0.1 MG TAB PO PRN (19:58)
[2017-06-17] VITALS (34 sets, daily range): BP systolic 139–192; BP diastolic 48–106; PULSE 58–157; RESP 15–38; TEMP 97.7–100; O2SAT 93–100
[2017-06-17] MEDS: CHLORHEXIDINE GLUCONATE 2 % 1 PACK (2 CLOTHS) TOP SCH (04:00)
[2017-06-17] MEDS: INSULIN NovoLIN REGULAR SUPPLEMENTAL SCALE SQ SCH ×6 (04:00→23:49)
[2017-06-17] MEDS: PIPERACIL-TAZO 2.25 GM PREMIX 50 ML IV SCH ×3 (04:37→19:55)
--- NOTE | 2017-06-17 05:14 | RADRPT ---
EXAM DATE/TIME: 06/17/2017 04:47 [facility] COMPARISON: CHEST SINGLE AP, June 15, 2017, 5:15. INDICATIONS : Respiratory failure. MEDICAL HISTORY : Chronic obstructive pulmonary disease. Hypertension Diabetes mellitus type II. Stage 4 kidney dis ease. Congestive heart failure. SURGICAL HISTORY : Umbilical hernia repair. Cholecystectomy. Appendectomy. hysterectomy. ENCOUNTER: Subsequent ACUITY: 3 weeks PAIN SCORE: 0/10 LOCATION: Bilateral chest FINDINGS: The cardiac silhouette is enlarged in transverse diameter. There are findings of congestive heart boone lure with interstitial and alveolar opacity bilaterally. There has been no significant change when co mpared to the prior exam. Moderate size bilateral pleural effusions are identified. CONCLUSION: 1. Cardiomegaly and findings of congestive heart failure. There has been no significant change when c ompared to the prior exam. Emilio Beckford MD on June 17, 2017 at 5:12 Board Certified Radiologist. This report was verified electronically.
[2017-06-17] MEDS: ARTIFICIAL TEARS OPTH SOLN 15 ML BTL EACH EYE SCH (05:53)
[2017-06-17] MEDS: DILTIAZEM HCL 30 MG TAB NG SCH ×4 (05:53→23:50)
[2017-06-17] MEDS ORDERED: MORPHINE SULFATE 2 MG/ML INJ IV PUSH PRN (06:30)
[2017-06-17] MEDS ORDERED: ACETAMINOPHEN 650 MG/20.3 ML UDC PO PRN (06:30)
[2017-06-17] MEDS ORDERED: ACETAMINOPHEN/HYDROcodone 325 MG/5 MG TAB PO PRN (06:30)
--- NOTE | 2017-06-17 06:35 | HHI.CCPN ---
Subjective Remarks/Hospital Course The patient is a 76-year-old female with past medical history of hypertension, hyperlipidemia, diabetes mellitus, COPD, chronic kidney disease, who was admitted to [facility] yesterday under hospitalist service for acute renal failure and COPD exacerbation. On arrival the patient had BUN of 99 with a creatinine of 14 and potassium level 4.8. Chest x-ray on admission showed no evidence of any acute cardiopulmonary disease. She was seen by Dr. Lee from nephrology service and placed on bicarb drip. A renal ultrasound was obtained which showed no evidence of hydronephrosis. Her renal function continued to worsen. A Halicat was called this morning for respiratory distress. She was subsequently transferred to ICU and was intubated by Dr. Davila, the ED physician. ABG post-intubation showed severe hypercapnic and metabolic acidosis with a pH of 6.89, CO2 63, bicarb 12, pAO2 211, saturation 96 % on PRVC mode rate of 14, tidal volume 500. I time one, PEEP five and FIO2 60% . Chest x-ray post-intubation showed ET tube above the brayan and bilateral interstitial pattern. Her laboratory data this morning is significant for hyperkalemia with potassium level 6.1, BUN of 118, creatinine 14.0. When seen the patient is intubated and sedated with Diprivan drip. Her current blood pressure is 179/90 with a pulse of 117. 06/02 Patient s/p HD 06/01 with 2L fluid removal, 2 L removed today as well. . Patient remains intubated on low dose Diprivan but awake, alert and follows commands. Afebrile. She went into Afib with RVR overnight and started on Amio drip. 06/03 Converted to sinus with PAC's on amiodarone. Remains on mechanical ventilation. UOP 50 ml over last 24 hours. Following commands on sedation, will do SBT. Plan for HD today per discussion with SCOOPING MACHINE TENDER. 06/04 CPAP trial terminated yesterday after patient became tachycardic, anxious. HD was not performed yesterday but plan for today per nephrology. Will use Precedex to facilitate comfort with CPAP. UOP 150. 06/05: Patient had hemodialysis today with 3 L fluid removed. Tolerating CPAP well, awake alert following commands communicating by writing. Chest x-ray remains unchanged 06/06: Overnight placed on Precedex for agitation. Also required BIPAP for hypercapnea. Weaned off Precedex by afternoon today. Currently on Xanax when necessary. At this time on BiPAP. Patient is pleasant and communicative breathing comfortably. Bilateral wheezes on exam. I have started patient on IV Solu-Medrol, Symbicort and Spiriva Reconsult 06/12: Reconsulted secondary to acute hypoxemic respiratory failure. Currently on BiPAP with significant acidosis therefore intubated. Central line placed in the left IJ. 06/13: Afebrile. Currently off phenylephrine drip. Remains intubated. Currently in sinus bradycardia. White blood cell count decreased to 16,000. Will attempt PSV trial today. 06/14: Resting comfortably in bed. Tolerated PSV trial still 8 PM last night. During tube feeds. Positive BM. Following simple commands on minimal sedation. 06/15: Return to normal sinus rhythm. Diltiazem Initiated. Will Attempt PSV Trial Again Today. Positive BMs. We'll Check C. difficile. 06/16: No acute issues overnight. Hemoglobin 7. Will transfuse 1 unit during hemodialysis. Attempt spontaneous breathing trials postdialysis with attempt extubated. Subjective 06/17: Extubated yesterday without complication of hemodialysis. -3 L. Positive BM 3. Current 4 L nasal cannula. Less lethargic as AM. Objective Vital Signs Date Time Temp Pulse Resp B/P (MAP) Pulse Ox O2 Delivery O2 Flow Rate FiO2 06/17/17 05:00 62 18 149/67 (94) 99 06/17/17 04:00 98.3 06/16/17 19:35 Nasal Cannula 4.00 06/16/17 16:00 30 Intake and Output 06/17/17 06/17/17 06/18/17 08:00 16:00 00:00 Intake Total 600 ml Output Total 0 ml Balance 600 ml Result Diagram: 06/16/17 0504 06/16/17 0504 Other Results Microbiology Date/Time Source Procedure Growth Status 06/12/17 12:45 Blood Peripheral Aerobic Blood Culture - Preliminary NO GROWTH IN 4 DAYS Resulted 06/12/17 12:45 Blood Peripheral Anaerobic Blood Culture - Preliminary NO GROWTH IN 4 DAYS Resulted 06/13/17 18:31 Stool Stool Stool Occult Blood (MELISSA) - Final HEMOCCULT POSITIVE Complete 06/15/17 06:50 Nasal Aspirate Influenza Types A,B Antigen (MELISSA) - Final NEGATIVE FOR FLU A AND B ANTIGEN.... Complete 06/11/17 20:33 Urine Catheterized Urine Urine Culture - Final Lacey Glabrata Lacey Albicans Complete Imaging Last Impressions Chest X-Ray 06/17/17 0600 Signed Impressions: Service Date/Time: Saturday, June 17, 2017 04:47 - CONCLUSION: 1. Cardiomegaly and findings of congestive heart failure. There has been no significant change when compared to the prior exam. Emilio Beckford MD Renal Ultrasound 05/31/17 0000 Signed Impressions: Service Date/Time: Wednesday, May 31, 2017 08:54 - CONCLUSION: 1. Abnormal appearance to the left kidney with diminutive size and poor delineation of the parenchymal architecture. 2. No gross abnormality seen in the right kidney. Aramis Scott MD Objective Remarks GENERAL: Patient is 76 yo female, resting in bed comfortably on nasal cannula SKIN: Warm and dry. No rash. Well-perfused. HEAD: Normocephalic. EYES: No scleral icterus. No injection or drainage. NECK: Supple, trachea midline. No JVD or lymphadenopathy. Right IJ hemodialysis catheter left IJ CVL clean dry and intact CARDIOVASCULAR: RRR. S1, S2. No S4. Without murmurs, clicks, rubs RESPIRATORY: Coarse bibasilar breath sounds. Bilateral inspiratory and expiratory wheezing appreciated. GASTROINTESTINAL: Abdomen soft, non-tender, protuberant. Hypoactive bowel sounds are appreciated MUSCULOSKELETAL: 1+ edema all extremities, upper and lower. NEURO: Awake and oriented to person and place. Moves all 4 extremities spontaneously. Currently following simple and complex commands Procedures Extubated 06/05 Vascular Central Line Catheter: Yes Assessment to: Continue Date of Insertion: Jun 12, 2017 Line: Central Venous Catheter Side: Left Location: Internal, Jugular A/P Assessment and Plan Neuro/Psych: Anxiety Alprazolam 0.5 mg by mouth every 8 hours as needed for anxiety/home medication for anxiety Acetaminophen 650 mg liquid every 6 hours when necessary for fever Hydronephrosis acetaminophen 5/325 one tab every 6 hours when necessary pain 1- 5. Morphine sulfate 2 mg IV every 4 hours. Pain 6-10. Pulm: Acute hypercapnic respiratory failure Acute COPD exacerbation Tobacco abuse Extubated 06/05/17. Reintubated 06/12. Extubated 06/16. Nasal cannula to maintain saturations greater than equal to 90% Incentive spirometry while awake Albuterol/ipratropium aerosols every 6 hours with albuterol aerosols every 2 hours. Dyspnea On budesonide/formoterol 160 g/4.5 g 2 puffs inhaled twice a day A cappella/prep every 6 hours Currently on methylprednisolone 40 mg every 12 hours Pulm following, Dr. Hammonds Chest x-ray ordered 06/17 AM. Revealed cardiomegaly, effusions. CV: Hypertension Hyperlipidemia Paroxysmal atrial fibrillation currently in sinus bradycardia Monitor HR and BP and maintain MAP>65 mmHg. Currently on diltiazem 30 mg by tube every 6 hours. Holding enalapril 20 mg by tube twice a day/home medication Holding furosemide 20 milligrams by tube daily/home medication Echo showed 50-55% normal LV. Possible lipomatous hypertrophy of the inter- atrial septum Currently holding atorvastatin 80 mg by mouth daily at bedtime for dyslipidemia/ home medication in light of elevated liver function tests Phenylephrine drip if needed to maintain mean arterial pressure greater than 65 Renal/FEN/: CKD Stage IV, now on HD and probable ESRD with alf dialysis. Diabetic nephropathy Hyperphosphatemia hyper-magnesium Monitor renal function, I&O's and avoid nephrotoxins. HD started 06/01 with 2 KG removal, 06/02 with 2 KG removal. s/p HD 06/05 with 3L removed. Renal ultrasound 05/31 revealed medical renal disease left kidney/atrophy. Right kidney within normal limits Dr. Lee following. 3.0 L removed 06/16. On calcium acetate 1334 mg 3 times a day GI: Diarrhea present on admission. Recheck C. difficile today On pantoprazole 40 mg IV twice a day Restart Nepro goal 45 cc an hour for tube feeding with beneprotein 1 packet 3 times a day. On docusate sodium/senna 1 tablet twice a day for bowel regimen will be held in light of diarrhea Loperamide 2 mg every 4 hours when necessary written for diarrhea if needed C diff negative. 2 06/15. Consulted GI for heme positive stools. Likely endoscopy on Tuesday 06/19 ID: Acute community acquired pneumonia Asymptomatic candiduria Currently has completed ceftriaxone for total 8 day antibiotic course.. sputum culture 06/01: Klebsiella, E Coli S to ceftriaxone UA 06/11 Lacey although can/glabrata Will reculture blood sputum and urine today. Along with Legionella and mechanically urinary antigens and influenza See orders Continue piperacillin/tazobactam and vancomycin today for possible HCAP. See orders Endo: Diabetes mellitus Detemir 10 units subcut q12 hours while nothing by mouth/until swallow evaluation High dose sliding scale Novulin R q4 hours.. Heme: Leukocytosis Anemia consistent with anemia of chronic kidney disease Thrombocytopenia On iron sulfate 325 mg daily. Monitor CBC. Continue Epogen lorena 10,000 units with hemodialysis GI prophylaxis with pantoprazole 40 mill grams IV twice a day and DVT prophylaxis with SCDs and holding heparin drip with anemia Noted Hemoccult positive. Hold heparin drip. Will need EGD/colonoscopy prior to long-term anticoagulation/oral medication Lines: Peripheral IV's, Right IJ vascath placed 06/01 . Left IJ CVL placed 06/12 Level II follow-up Mitchel Loera MD Jun 17, 2017 06:35
[2017-06-17 07:13] LABS: POTASSIUM 4.6 MEQ/L (3.5-5.1)
[2017-06-17 07:15] LABS: AUTOMATED NEUTROPHIL # 13.8 TH/MM3 (1.8-7.7); HEMATOCRIT 27.1 % (35.0-46.0); LYMPH % 5.3 % (9.0-44.0); LYMPHOCYTE # 0.8 TH/MM3 (1.0-4.8); MEAN CELL VOLUME 82.1 FL (80.0-100.0); MEAN CORPUSCULAR HGB CONC 32.9 % (32.0-36.0); MONO % 4.4 % (0.0-8.0); NEUT % 90.3 % (16.0-70.0); PLATELET COUNT 115 TH/MM3 (150-450); RED CELL DISTRIBUTION WIDTH 18.5 % (11.6-17.2); WHITE BLOOD COUNT 15.3 TH/MM3 (4.0-11.0)
[2017-06-17 07:16] LABS: BICARBONATE 27.8 MEQ/L (21.0-32.0); MAGNESIUM 2.5 MG/DL (1.5-2.5)
[2017-06-17 07:21] LABS: HEMO FLAGS DIFF FINAL
[2017-06-17 07:40] LABS: APTT (PATIENT) 23.5 SEC (24.3-30.1)
[2017-06-17] MEDS: RESP: ALBUTEROL 2.5 MG/IPRATROPIUM 0.5 MG NEB (SCH) NEB ×4 (07:42→20:00)
[2017-06-17] MEDS: CHLORHEXIDINE 0.12% (ORAL KIT) 15 ML CUP MT SCH ×2 (08:00→19:59)
[2017-06-17] MEDS: FLUCONAZOLE SUSP 10 MG/ML 35 ML BTL PO SCH (09:59)
[2017-06-17] MEDS: CALCIUM ACETATE 667 MG CAP PO SCH ×3 (09:59→19:55)
[2017-06-17] MEDS: FERROUS SULFATE 325 MG (65 MG ELEMENTAL IRON) TAB PO SCH (09:59)
[2017-06-17] MEDS: SODIUM CHLORIDE 0.9% FLUSH 10 ML FLUSH IV FLUSH SCH ×3 (10:00→19:59)
[2017-06-17] MEDS: BUDESONIDE-FORMOTEROL 160/4.5 MCG INHALER INH SCH ×2 (10:00→19:56)
[2017-06-17] MEDS: PANTOPRAZOLE SODIUM 40 MG VIAL IV PUSH SCH ×2 (10:00→19:58)
[2017-06-17] MEDS: INSULIN DETEMIR 100 UNITS/ML VIAL SQ SCH ×2 (10:00→19:57)
[2017-06-17] MEDS: VITAMIN B CMPLX/VITC/FOLIC AC CAP PO SCH (10:02)
[2017-06-17] MEDS: methylPREDNISolone SOD SUCC 40 MG/1 ML VIAL IV PUSH SCH ×2 (12:24→23:50)
--- NOTE | 2017-06-17 18:51 | HHI.NPPN ---
Subjective History of Present Illness 76-year-old female with past medical history of hypertension, diabetes mellitus, hyperlipidemia, ischemic heart disease, chronic kidney disease, chronic obstructive pulmonary disease was admitted because of generalized weakness, decreased urine output. I he was called to see the patient for elevated BUN and creatinine. The patient is known to me from before. She has been following with me in the office and last time I saw her was on May 04 and at that time her creatinine was 2.2 with given the GFR of 19-20 she had advanced stage IV chronic kidney disease most likely because of diabetic nephropathy. Additional Remarks Patient doing well on o2 Review of Systems General General Remarks Intubated and sedated. Objective Data Data 06/17/17 06/18/17 19:00 07:00 Intake Total 951 ml Output Total 50 ml Balance 901 ml Intake Oral 520 ml IV Total 431 ml Stool Total 50 ml Vital Signs Date Time Temp Pulse Resp B/P (MAP) Pulse Ox O2 Delivery O2 Flow Rate FiO2 06/17/17 18:01 62 19 168/76 (106) 99 06/17/17 18:00 62 06/17/17 17:01 68 37 163/80 (107) 99 06/17/17 16:01 97.9 70 21 171/81 (111) 99 06/17/17 16:01 70 06/17/17 15:11 70 23 170/85 (113) 95 06/17/17 15:00 78 38 192/106 (134) 93 06/17/17 14:01 60 17 148/60 (89) 98 06/17/17 14:01 60 06/17/17 13:00 62 17 149/58 (88) 98 06/17/17 12:00 60 06/17/17 12:00 98.2 60 18 164/63 (96) 100 06/17/17 11:00 64 21 149/68 (95) 98 06/17/17 10:00 62 20 151/76 (101) 100 06/17/17 10:00 62 06/17/17 09:00 60 16 145/53 (83) 100 06/17/17 08:00 100 Nasal Cannula 3.00 Humidified 06/17/17 08:00 60 06/17/17 08:00 62 17 139/52 (81) 99 06/17/17 07:55 97.7 64 20 154/71 (98) 98 06/17/17 07:47 100 Nasal Cannula 3.00 06/17/17 07:00 58 17 140/70 (93) 99 06/17/17 06:00 66 06/17/17 06:00 66 28 141/60 (87) 99 06/17/17 05:00 62 18 149/67 (94) 99 06/17/17 04:00 58 06/17/17 04:00 98.3 58 18 152/70 (97) 100 06/17/17 03:00 58 21 148/70 (96) 100 06/17/17 02:00 60 17 148/71 (96) 100 06/17/17 02:00 60 06/17/17 01:44 157 06/17/17 01:00 60 17 150/48 (82) 100 06/17/17 00:00 62 06/17/17 00:00 98.1 62 15 158/81 (106) 100 06/16/17 23:18 64 20 160/68 (98) 100 06/16/17 22:00 64 06/16/17 22:00 64 15 160/66 (97) 100 06/16/17 21:00 68 17 172/65 (100) 100 06/16/17 20:00 98.4 06/16/17 20:00 69 06/16/17 20:00 78 15 185/85 (118) 100 06/16/17 19:35 100 Nasal Cannula 4.00 06/16/17 19:35 70 13 180/86 (117) 100 06/16/17 19:00 100 Nasal Cannula 4.00 Humidified 06/16/17 19:00 68 13 181/87 (118) 100 -: 06/17/17 0630 06/17/17 0630 Physical Exam Eyes Eye Exam: Pupils Equal Throat Throat Exam: Oral Mucosa [place] & Moist Neck Neck Exam: Neck Supple Pulmonary Resp Exam: Breath Sounds Equal, Rhonchi, Decreased Bases, Diminished Breath Sounds, Poor Inspiratory Effort Cardiology CV Exam: Regular, Normal Sinus Rhythm Gastrointestinal/Abdomen GI Exam: Soft, Non-Tender, Bowel Sounds Present, Distended Extremeties Extremities Exam: Trace Edema Assessment/Plan Assessment Summary: MIR[place]LE/Acute Renal Failure, Hypertension, CKD Stage IV Problem List: (1) Chronic kidney disease (CKD) ICD Codes: N18.9 - Chronic kidney disease, unspecified (2) Oliguria ICD Codes: R34 - Anuria and oliguria (3) Diarrhea ICD Codes: R19.7 - Diarrhea, unspecified (4) Metabolic acidosis ICD Codes: E87.2 - Acidosis Status: Acute (5) Uremia ICD Codes: N19 - Unspecified kidney failure Status: Acute (6) Acute renal failure ICD Codes: N17.9 - Acute kidney failure, unspecified Status: Acute Plan Patient has advance stage 4 chronic kidney disease, approach stage 5. Started on HD. Patient will need AVF, when stable and nursing home HD. Patient has COPD with high CO2 and developing SOB off and on. Off vent doing better BP is stable. Hgb. is better now,on Epogen. HD done yesterday. stable 3 L off yesterday MWF dialysis Dr. Lee to follow on Monday Problem Qualifiers (1) Chronic kidney disease (CKD): Qualified Codes: N18.5 - Chronic kidney disease, stage 5 (2) Acute renal failure: Qualified Codes: N17.9 - Acute kidney failure, unspecified Mike Saeed MD Jun 17, 2017 18:51
[2017-06-17] MEDS: ALPRAZolam 0.25 MG TAB PO PRN (19:56)
[2017-06-17] MEDS: cloNIDine HCL 0.1 MG TAB PO PRN (19:57)
[2017-06-17] MEDS: RESP: ALBUTEROL 2.5 MG/3 ML NEB (PRN) NEB (20:44)
[2017-06-18] VITALS (31 sets, daily range): BP systolic 126–179; BP diastolic 50–86; PULSE 52–76; RESP 17–28; TEMP 97.9–98.8; O2SAT 94–100
[2017-06-18] MEDS: CHLORHEXIDINE GLUCONATE 2 % 1 PACK (2 CLOTHS) TOP SCH (04:00)
[2017-06-18] MEDS: INSULIN NovoLIN REGULAR SUPPLEMENTAL SCALE SQ SCH ×5 (04:05→19:47)
[2017-06-18] MEDS: PIPERACIL-TAZO 2.25 GM PREMIX 50 ML IV SCH ×3 (04:05→19:46)
[2017-06-18] MEDS: DILTIAZEM HCL 30 MG TAB NG SCH ×4 (06:13→23:31)
[2017-06-18 06:25] LABS: AUTOMATED NEUTROPHIL # 12.2 TH/MM3 (1.8-7.7); BASOPHIL % 0.3 % (0.0-2.0); HEMATOCRIT 26.9 % (35.0-46.0); HEMO FLAGS DIFF FINAL; LYMPH % 3.2 % (9.0-44.0); LYMPHOCYTE # 0.4 TH/MM3 (1.0-4.8); MEAN CELL VOLUME 83.3 FL (80.0-100.0); MEAN CORPUSCULAR HGB CONC 32.4 % (32.0-36.0); MONO % 3.7 % (0.0-8.0); NEUT % 92.8 % (16.0-70.0); PLATELET COUNT 115 TH/MM3 (150-450); RED BLOOD COUNT 3.23 MIL/MM3 (4.00-5.30); RED CELL DISTRIBUTION WIDTH 18.5 % (11.6-17.2); WHITE BLOOD COUNT 13.1 TH/MM3 (4.0-11.0)
[2017-06-18 06:33] LABS: POTASSIUM 5.1 MEQ/L (3.5-5.1)
[2017-06-18 06:36] LABS: BICARBONATE 23.8 MEQ/L (21.0-32.0)
--- NOTE | 2017-06-18 07:21 | HHI.CCPN ---
Subjective Remarks/Hospital Course The patient is a 76-year-old female with past medical history of hypertension, hyperlipidemia, diabetes mellitus, COPD, chronic kidney disease, who was admitted to [facility] yesterday under hospitalist service for acute renal failure and COPD exacerbation. On arrival the patient had BUN of 99 with a creatinine of 14 and potassium level 4.8. Chest x-ray on admission showed no evidence of any acute cardiopulmonary disease. She was seen by Dr. Lee from nephrology service and placed on bicarb drip. A renal ultrasound was obtained which showed no evidence of hydronephrosis. Her renal function continued to worsen. A Halicat was called this morning for respiratory distress. She was subsequently transferred to ICU and was intubated by Dr. Davila, the ED physician. ABG post-intubation showed severe hypercapnic and metabolic acidosis with a pH of 6.89, CO2 63, bicarb 12, pAO2 211, saturation 96 % on PRVC mode rate of 14, tidal volume 500. I time one, PEEP five and FIO2 60% . Chest x-ray post-intubation showed ET tube above the brayan and bilateral interstitial pattern. Her laboratory data this morning is significant for hyperkalemia with potassium level 6.1, BUN of 118, creatinine 14.0. When seen the patient is intubated and sedated with Diprivan drip. Her current blood pressure is 179/90 with a pulse of 117. 06/02 Patient s/p HD 06/01 with 2L fluid removal, 2 L removed today as well. . Patient remains intubated on low dose Diprivan but awake, alert and follows commands. Afebrile. She went into Afib with RVR overnight and started on Amio drip. 06/03 Converted to sinus with PAC's on amiodarone. Remains on mechanical ventilation. UOP 50 ml over last 24 hours. Following commands on sedation, will do SBT. Plan for HD today per discussion with TAPER AND FLOATER. 06/04 CPAP trial terminated yesterday after patient became tachycardic, anxious. HD was not performed yesterday but plan for today per nephrology. Will use Precedex to facilitate comfort with CPAP. UOP 150. 06/05: Patient had hemodialysis today with 3 L fluid removed. Tolerating CPAP well, awake alert following commands communicating by writing. Chest x-ray remains unchanged 06/06: Overnight placed on Precedex for agitation. Also required BIPAP for hypercapnea. Weaned off Precedex by afternoon today. Currently on Xanax when necessary. At this time on BiPAP. Patient is pleasant and communicative breathing comfortably. Bilateral wheezes on exam. I have started patient on IV Solu-Medrol, Symbicort and Spiriva Reconsult 06/12: Reconsulted secondary to acute hypoxemic respiratory failure. Currently on BiPAP with significant acidosis therefore intubated. Central line placed in the left IJ. 06/13: Afebrile. Currently off phenylephrine drip. Remains intubated. Currently in sinus bradycardia. White blood cell count decreased to 16,000. Will attempt PSV trial today. 06/14: Resting comfortably in bed. Tolerated PSV trial still 8 PM last night. During tube feeds. Positive BM. Following simple commands on minimal sedation. 06/15: Return to normal sinus rhythm. Diltiazem Initiated. Will Attempt PSV Trial Again Today. Positive BMs. We'll Check C. difficile. 06/16: No acute issues overnight. Hemoglobin 7. Will transfuse 1 unit during hemodialysis. Attempt spontaneous breathing trials postdialysis with attempt extubated. 06/17: Extubated yesterday without complication of hemodialysis. -3 L. Positive BM 3. Current 4 L nasal cannula. Less lethargic as AM. Subjective 06/18: Afebrile. Tolerating diet yesterday overnight. Currently in sinus bradycardia. Positive BM. On nasal cannula and feels better than yesterday Objective Vital Signs Date Time Temp Pulse Resp B/P (MAP) Pulse Ox O2 Delivery O2 Flow Rate FiO2 06/18/17 06:01 60 06/18/17 06:01 22 153/63 (93) 98 06/18/17 04:01 98.0 06/17/17 20:46 Nasal Cannula 3.00 06/16/17 16:00 30 Intake and Output 06/18/17 06/18/17 06/19/17 08:00 16:00 00:00 Intake Total 290 ml Output Total 250 ml Balance 40 ml Result Diagram: 06/18/17 0600 06/18/17 0600 Other Results Microbiology Date/Time Source Procedure Growth Status 06/12/17 12:45 Blood Peripheral Aerobic Blood Culture - Final NO GROWTH IN 5 DAYS Complete 06/12/17 12:45 Blood Peripheral Anaerobic Blood Culture - Final NO GROWTH IN 5 DAYS Complete 06/13/17 18:31 Stool Stool Stool Occult Blood (MELISSA) - Final HEMOCCULT POSITIVE Complete 06/15/17 06:50 Nasal Aspirate Influenza Types A,B Antigen (MELISSA) - Final NEGATIVE FOR FLU A AND B ANTIGEN.... Complete 06/11/17 20:33 Urine Catheterized Urine Urine Culture - Final Lacey Glabrata Lacey Albicans Complete Imaging Last Impressions Chest X-Ray 06/17/17 0600 Signed Impressions: Service Date/Time: Saturday, June 17, 2017 04:47 - CONCLUSION: 1. Cardiomegaly and findings of congestive heart failure. There has been no significant change when compared to the prior exam. Emilio Beckford MD Renal Ultrasound 05/31/17 0000 Signed Impressions: Service Date/Time: Wednesday, May 31, 2017 08:54 - CONCLUSION: 1. Abnormal appearance to the left kidney with diminutive size and poor delineation of the parenchymal architecture. 2. No gross abnormality seen in the right kidney. Aramis Scott MD Objective Remarks GENERAL: Patient is 76 yo female, resting in bed comfortably on nasal cannula SKIN: Warm and dry. No rash. Well-perfused. HEAD: Normocephalic. EYES: No scleral icterus. No injection or drainage. NECK: Supple, trachea midline. No JVD or lymphadenopathy. Right IJ hemodialysis catheter left IJ CVL clean dry and intact CARDIOVASCULAR: RRR. S1, S2. No S4. Without murmurs, clicks, rubs RESPIRATORY: Coarse bibasilar breath sounds. Bilateral inspiratory and expiratory wheezing appreciated. GASTROINTESTINAL: Abdomen soft, non-tender, protuberant. Hypoactive bowel sounds are appreciated MUSCULOSKELETAL: 1+ edema all extremities, upper and lower. NEURO: Awake and oriented to person and place. Moves all 4 extremities spontaneously. Currently following simple and complex commands. Pleasant. Procedures Extubated 06/05 and 06/16 Urinary Catheter: No Assessment to: Continue Vascular Central Line Catheter: Yes Assessment to: Remove Date of Insertion: Jun 12, 2017 Line: Central Venous Catheter Side: Left Location: Internal, Jugular A/P Assessment and Plan Neuro/Psych: Anxiety Alprazolam 0.5 mg by mouth every 8 hours as needed for anxiety/home medication for anxiety Acetaminophen 650 mg liquid every 6 hours when necessary for fever Hydronephrosis acetaminophen 5/325 one tab every 6 hours when necessary pain 1- 5. Morphine sulfate 2 mg IV every 4 hours. Pain 6-10. Pulm: Acute hypercapnic respiratory failure Acute COPD exacerbation Tobacco abuse Extubated 06/05/17. Reintubated 06/12. Extubated 06/16. Nasal cannula to maintain saturations greater than equal to 90% Incentive spirometry while awake Albuterol/ipratropium aerosols every 6 hours with albuterol aerosols every 2 hours. Dyspnea On budesonide/formoterol 160 g/4.5 g 2 puffs inhaled twice a day A cappella/prep every 6 hours Currently on methylprednisolone 40 mg every 12 hours Pulm following, Dr. Hammonds Chest x-ray 06/17 AM. Revealed cardiomegaly, effusions. Recheck 06/19 a.m. CV: Hypertension Hyperlipidemia Paroxysmal atrial fibrillation currently in sinus bradycardia Monitor HR and BP and maintain MAP>65 mmHg. Currently on diltiazem 30 mg by mouth every 6 hours. Holding enalapril 20 mg by tube twice a day/home medication Holding furosemide 20 milligrams by tube daily/home medication Echo showed 50-55% normal LV. Possible lipomatous hypertrophy of the inter- atrial septum Currently holding atorvastatin 80 mg by mouth daily at bedtime for dyslipidemia/ home medication in light of elevated liver function tests. Resume when clinically indicated Phenylephrine drip if needed to maintain mean arterial pressure greater than 65 Renal/FEN/: CKD Stage IV, now on HD and probable ESRD with joint terminal attack controller dialysis. Diabetic nephropathy Hyperphosphatemia hyper-magnesium Monitor renal function, I&O's and avoid nephrotoxins. HD started 06/01 with 2 KG removal, 06/02 with 2 KG removal. s/p HD 06/05 with 3L removed. Renal ultrasound 05/31 revealed medical renal disease left kidney/atrophy. Right kidney within normal limits Dr. Lee following. 3.0 L removed 06/16. Hemodialysis plan Monday/Monday and Monday On calcium acetate 1334 mg 3 times a day GI: Diarrhea present on admission. Recheck C. difficile today On pantoprazole 40 mg IV twice a day 1800 ADA diet On docusate sodium/senna 1 tablet twice a day for bowel regimen will be held in light of diarrhea Loperamide 2 mg every 4 hours when necessary written for diarrhea if needed C diff negative. 2 06/15. Consulted GI for heme positive stools. Likely endoscopy on Tuesday 06/19 ID: Acute community acquired pneumonia Asymptomatic candiduria Currently has completed ceftriaxone for total 8 day antibiotic course.. sputum culture 06/01: Klebsiella, E Coli S to ceftriaxone UA 06/11 Lacey although can/glabrata. Initially gave fluconazole however discontinued. Cancino discontinued Will reculture blood sputum and urine today. Along with Legionella and mechanically urinary antigens and influenza See orders Continue piperacillin/tazobactam and vancomycin today for possible HCAP. See orders Endo: Diabetes mellitus Detemir 25 units subcut q12 hours High dose sliding scale Novulin R before meals/at bedtime. 45 units sliding scale past 24 hours Heme: Leukocytosis Anemia consistent with anemia of chronic kidney disease Thrombocytopenia On iron sulfate 325 mg daily. Monitor CBC. Continue Epogen lorena 10,000 units with hemodialysis GI prophylaxis with pantoprazole 40 mill grams IV twice a day and DVT prophylaxis with SCDs and holding heparin drip with anemia Noted Hemoccult positive. Hold heparin drip. Will need EGD/colonoscopy prior to long-term anticoagulation/oral medication Lines: Peripheral IV's, Right IJ vascath placed 06/01 . Left IJ CVL placed 06/12. We can likely discontinue central line today Level II follow-up Mitchel Loera MD Jun 18, 2017 07:21
[2017-06-18] MEDS: RESP: ALBUTEROL 2.5 MG/IPRATROPIUM 0.5 MG NEB (SCH) NEB ×4 (07:44→20:36)
[2017-06-18] MEDS: CHLORHEXIDINE 0.12% (ORAL KIT) 15 ML CUP MT SCH ×2 (08:00→19:48)
[2017-06-18 09:20] LABS: APTT (PATIENT) 22.4 SEC (24.3-30.1)
--- NOTE | 2017-06-18 09:37 | HHI.GIFU ---
Subjective Remarks Had melanotic stools and one BM with clots, otherwise asymptomatic. Objective Vitals I&O Vital Signs Date Time Temp Pulse Resp B/P (MAP) Pulse Ox O2 Delivery O2 Flow Rate FiO2 06/18/17 07:47 100 Nasal Cannula 3.00 06/18/17 06:01 60 06/18/17 06:01 60 22 153/63 (93) 98 06/18/17 05:01 56 18 136/59 (84) 97 06/18/17 04:01 98.0 60 18 147/60 (89) 99 06/18/17 04:01 60 06/18/17 03:01 56 17 133/53 (79) 100 06/18/17 02:01 60 18 144/56 (85) 100 06/18/17 02:01 60 06/18/17 01:01 58 18 135/50 (78) 99 06/18/17 00:01 62 06/18/17 00:01 97.9 62 19 145/70 (95) 99 06/17/17 23:01 64 20 145/69 (94) 100 06/17/17 22:01 64 21 149/60 (89) 100 06/17/17 22:00 98.7 06/17/17 22:00 64 06/17/17 21:01 68 22 158/75 (102) 98 06/17/17 20:46 98 Nasal Cannula 3.00 06/17/17 20:01 68 19 164/70 (101) 99 06/17/17 20:00 68 06/17/17 20:00 100.0 06/17/17 19:39 72 21 176/94 (121) 98 06/17/17 19:30 66 22 183/83 (116) 99 06/17/17 19:01 66 20 172/88 (116) 99 06/17/17 19:00 99 Nasal Cannula 3.00 Humidified 06/17/17 18:01 62 19 168/76 (106) 99 06/17/17 18:00 62 06/17/17 17:01 68 37 163/80 (107) 99 06/17/17 16:01 97.9 70 21 171/81 (111) 99 06/17/17 16:01 70 06/17/17 15:11 70 23 170/85 (113) 95 06/17/17 15:00 78 38 192/106 (134) 93 06/17/17 14:01 60 17 148/60 (89) 98 06/17/17 14:01 60 06/17/17 13:00 62 17 149/58 (88) 98 06/17/17 12:00 60 06/17/17 12:00 98.2 60 18 164/63 (96) 100 06/17/17 11:00 64 21 149/68 (95) 98 06/17/17 10:00 62 20 151/76 (101) 100 06/17/17 10:00 62 I/O 06/17/17 06/17/17 06/17/17 06/18/17 06/18/17 06/18/17 07:00 15:00 23:00 07:00 15:00 23:00 Intake Total 1150 ml 50 ml 951 ml 290 ml Output Total 0 ml 50 ml 250 ml Balance 1150 ml 50 ml 901 ml 40 ml Intake Oral 0 ml 520 ml 240 ml IV Total 1150 ml 50 ml 431 ml 50 ml Output Urine Total 0 ml Stool Total 50 ml 250 ml Drainage Total 0 ml Laboratory Laboratory Tests Test 06/18/17 06:00 White Blood Count 13.1 Red Blood Count 3.23 Hemoglobin 8.7 Hematocrit 26.9 Mean Corpuscular Volume 83.3 Mean Corpuscular Hemoglobin 27.0 Mean Corpuscular Hemoglobin Concent 32.4 Red Cell Distribution Width 18.5 Platelet Count 115 Mean Platelet Volume 9.2 Neutrophils (%) (Auto) 92.8 Lymphocytes (%) (Auto) 3.2 Monocytes (%) (Auto) 3.7 Eosinophils (%) (Auto) 0.0 Basophils (%) (Auto) 0.3 Neutrophils # (Auto) 12.2 Lymphocytes # (Auto) 0.4 Monocytes # (Auto) 0.5 Eosinophils # (Auto) 0.0 Basophils # (Auto) 0.0 CBC Comment DIFF FINAL Differential Comment Activated Partial Thromboplast Time 22.4 Blood Urea Nitrogen 121 Creatinine 7.00 Random Glucose 169 Albumin 3.3 Calcium Level 8.2 Phosphorus Level 8.9 Sodium Level 136 Potassium Level 5.1 Chloride Level 97 Carbon Dioxide Level 23.8 Anion Gap 15 Estimat Glomerular Filtration Rate 6 Date/Time Source Procedure Growth Status 06/12/17 12:45 Blood Peripheral Aerobic Blood Culture - Final NO GROWTH IN 5 DAYS Complete 06/12/17 12:45 Blood Peripheral Anaerobic Blood Culture - Final NO GROWTH IN 5 DAYS Complete 06/13/17 18:31 Stool Stool Stool Occult Blood (MELISSA) - Final HEMOCCULT POSITIVE Complete 06/15/17 06:50 Nasal Aspirate Influenza Types A,B Antigen (MELISSA) - Final NEGATIVE FOR FLU A AND B ANTIGEN.... Complete 06/11/17 20:33 Urine Catheterized Urine Urine Culture - Final Lacey Glabrata Lacey Albicans Complete Physical Exam HEENT: Pupils round and reactive to light; normocephalic; atraumatic; no jaundice. Throat is clear. NECK: Neck is supple, no JVD, no lymphadenopathy. CHEST: Chest is clear to auscultation and percussion. CARDIAC: Regular rate and rhythm with no murmur gallop or rubs. ABDOMEN: Soft, nondistended, nontender; no hepatosplenomegaly; bowel sounds are present in all four quadrants. EXTREMITIES: No clubbing, cyanosis, or edema. Assessment and Plan Physician Comments Assessment: - Melena and Rectal bleeding. - Anemia - Recent use of anticoagulation. - History of C.diff - No previous endoscopic evaluation. Plan: - EGD/Colonoscopy in AM - Clear liquid diet - NPO after MN - Will obtain consent - Santos for prep - Further recommendations to follow. Jules Roth MD Jun 18, 2017 09:37
[2017-06-18] MEDS ORDERED: PEG (High)/E-LYTE SOLN 4000 ML BTL PO ONE (10:00)
[2017-06-18] MEDS ORDERED: BISACODYL EC 5 MG TABEC PO ONE (10:00)
[2017-06-18] MEDS: BUDESONIDE-FORMOTEROL 160/4.5 MCG INHALER INH SCH ×2 (10:09→19:46)
[2017-06-18] MEDS: CALCIUM ACETATE 667 MG CAP PO SCH ×3 (10:09→17:15)
[2017-06-18] MEDS: VITAMIN B CMPLX/VITC/FOLIC AC CAP PO SCH (10:09)
[2017-06-18] MEDS: PANTOPRAZOLE SODIUM 40 MG VIAL IV PUSH SCH ×2 (10:10→19:46)
[2017-06-18] MEDS: FERROUS SULFATE 325 MG (65 MG ELEMENTAL IRON) TAB PO SCH (10:10)
[2017-06-18] MEDS: SODIUM CHLORIDE 0.9% FLUSH 10 ML FLUSH IV FLUSH SCH ×3 (10:10→19:48)
[2017-06-18] MEDS: INSULIN DETEMIR 100 UNITS/ML VIAL SQ SCH ×2 (10:11→19:47)
[2017-06-18] MEDS: methylPREDNISolone SOD SUCC 40 MG/1 ML VIAL IV PUSH SCH ×2 (12:47→23:31)
--- NOTE | 2017-06-18 15:20 | HHI.PR ---
Subjective Remarks ALERT LESS SOB ON O2 FOR UPPER AND LOWER ENDOSCOPY IN AM Objective Vital Signs Date Time Temp Pulse Resp B/P (MAP) Pulse Ox O2 Delivery O2 Flow Rate FiO2 06/18/17 13:01 66 20 171/76 (107) 97 06/18/17 12:01 98.4 64 19 163/67 (99) 97 06/18/17 12:00 64 06/18/17 11:11 98 Nasal Cannula 2.00 06/18/17 11:01 60 20 159/58 (91) 98 06/18/17 10:04 64 20 161/74 (103) 97 06/18/17 10:00 60 06/18/17 09:30 97 Nasal Cannula 2.00 Humidified 06/18/17 09:01 54 18 130/55 (80) 98 06/18/17 08:01 98.2 54 17 126/57 (80) 99 06/18/17 08:00 52 06/18/17 08:00 99 Nasal Cannula 3.00 Humidified 06/18/17 07:47 100 Nasal Cannula 3.00 06/18/17 07:01 54 18 133/61 (85) 100 06/18/17 06:01 60 06/18/17 06:01 60 22 153/63 (93) 98 06/18/17 05:01 56 18 136/59 (84) 97 06/18/17 04:01 98.0 60 18 147/60 (89) 99 06/18/17 04:01 60 06/18/17 03:01 56 17 133/53 (79) 100 06/18/17 02:01 60 18 144/56 (85) 100 06/18/17 02:01 60 06/18/17 01:01 58 18 135/50 (78) 99 06/18/17 00:01 62 06/18/17 00:01 97.9 62 19 145/70 (95) 99 06/17/17 23:01 64 20 145/69 (94) 100 06/17/17 22:01 64 21 149/60 (89) 100 06/17/17 22:00 98.7 06/17/17 22:00 64 06/17/17 21:01 68 22 158/75 (102) 98 06/17/17 20:46 98 Nasal Cannula 3.00 06/17/17 20:01 68 19 164/70 (101) 99 06/17/17 20:00 68 06/17/17 20:00 100.0 06/17/17 19:39 72 21 176/94 (121) 98 06/17/17 19:30 66 22 183/83 (116) 99 06/17/17 19:01 66 20 172/88 (116) 99 06/17/17 19:00 99 Nasal Cannula 3.00 Humidified 06/17/17 18:01 62 19 168/76 (106) 99 06/17/17 18:00 62 06/17/17 17:01 68 37 163/80 (107) 99 06/17/17 16:01 97.9 70 21 171/81 (111) 99 06/17/17 16:01 70 I/O 06/17/17 06/17/17 06/17/17 06/18/17 06/18/17 06/18/17 07:00 15:00 23:00 07:00 15:00 23:00 Intake Total 1150 ml 50 ml 951 ml 290 ml 50 ml Output Total 0 ml 50 ml 250 ml Balance 1150 ml 50 ml 901 ml 40 ml 50 ml Intake Oral 0 ml 520 ml 240 ml IV Total 1150 ml 50 ml 431 ml 50 ml 50 ml Output Urine Total 0 ml Stool Total 50 ml 250 ml Drainage Total 0 ml Result Diagram: 06/18/17 0606/18/17 0600 Objective Remarks GENERAL: SKIN: Warm and dry. HEAD: Atraumatic. Normocephalic. EYES: Pupils equal and round. No scleral icterus. No injection or drainage. ENT: No nasal bleeding or discharge. Mucous membranes pink and moist. NECK: Trachea midline. No JVD. CARDIOVASCULAR: Regular rate and rhythm. RESPIRATORY: No accessory muscle use.SCATTERED WHEEZE to auscultation. Breath sounds equal bilaterally. GASTROINTESTINAL: Abdomen soft, non-tender, nondistended. Hepatic and splenic margins not palpable. MUSCULOSKELETAL: Extremities without clubbing, cyanosis, or edema. No obvious deformities. NEUROLOGICAL: Awake and alert. No obvious cranial nerve deficits. Motor grossly within normal limits. Five out of 5 muscle strength in the arms and legs. Normal speech. PSYCHIATRIC: Appropriate mood and affect; insight and judgment normal. Assessment and Plan Assessment and Plan ASS RESPIRATORY FAILURE COPD EXACERBATION RENAL FAILURE GI BLEED PLAN O2/BIPAP BRONCHODILATOR THERAPY INCREASE ACTIVITY FOR ENDOSCOPY Shayla,Shayla Wadie MD Jun 18, 2017 15:20
[2017-06-18] MEDS: ALPRAZolam 0.25 MG TAB PO PRN ×2 (15:34→23:31)
[2017-06-18] MEDS ORDERED: SODIUM CHLORID 0.9% 500 ML IV PRN (18:45)
[2017-06-18] MEDS ORDERED: LACTATED RINGER'S 1000 ML IV PRN (18:45)
[2017-06-18] MEDS ORDERED: CHLORHEXIDINE GLUCONATE 2 % 1 PACK (2 CLOTHS) TOPICAL PRN (18:45)
[2017-06-18] MEDS ORDERED: METOPROLOL TARTRATE 25 MG TAB PO PRN (18:45)
[2017-06-18] MEDS ORDERED: INSULIN HUMAN REGULAR 1,000 UNITS/10 ML VIAL SQ PRN (18:45)
[2017-06-18] MEDS ORDERED: POVIDONE IODINE 5% (ANTISEPSIS KIT) 4 APPLICATIONS EACH NARE PRN (18:45)
[2017-06-19] VITALS (43 sets, daily range): BP systolic 73–192; BP diastolic 51–99; PULSE 64–96; RESP 17–34; TEMP 97–98.8; O2SAT 92–100
[2017-06-19] MEDS: INSULIN NovoLIN REGULAR SUPPLEMENTAL SCALE SQ SCH ×5 (03:00→20:16)
[2017-06-19] MEDS: CHLORHEXIDINE GLUCONATE 2 % 1 PACK (2 CLOTHS) TOP SCH (04:00)
[2017-06-19] MEDS: PIPERACIL-TAZO 2.25 GM PREMIX 50 ML IV SCH ×2 (04:07→12:03)
[2017-06-19] MEDS: RESP: ALBUTEROL 2.5 MG/3 ML NEB (PRN) NEB (04:13)
[2017-06-19 05:31] LABS: CHLORIDE 97 MEQ/L (98-107); POTASSIUM 4.7 MEQ/L (3.5-5.1); SODIUM (NA) 140 MEQ/L (136-145)
[2017-06-19 05:33] LABS: AUTOMATED NEUTROPHIL # 14.1 TH/MM3 (1.8-7.7); BASOPHIL % 0.2 % (0.0-2.0); EOSINOPHIL % 0.1 % (0.0-4.0); LYMPH % 2.6 % (9.0-44.0); LYMPHOCYTE # 0.4 TH/MM3 (1.0-4.8); MEAN CELL VOLUME 83.2 FL (80.0-100.0); MEAN CORPUSCULAR HEMOGLOBIN 26.9 PG (27.0-34.0); MEAN CORPUSCULAR HGB CONC 32.3 % (32.0-36.0); MONO % 3.7 % (0.0-8.0); NEUT % 93.4 % (16.0-70.0); PLATELET COUNT 128 TH/MM3 (150-450); RED BLOOD COUNT 3.25 MIL/MM3 (4.00-5.30); RED CELL DISTRIBUTION WIDTH 18.7 % (11.6-17.2); WHITE BLOOD COUNT 15.1 TH/MM3 (4.0-11.0)
[2017-06-19 05:35] LABS: ANION GAP 19 MEQ/L (5-15); BICARBONATE 23.6 MEQ/L (21.0-32.0); MAGNESIUM 2.7 MG/DL (1.5-2.5)
[2017-06-19 05:39] LABS: HEMO FLAGS DIFF FINAL
[2017-06-19] MEDS: DILTIAZEM HCL 30 MG TAB NG SCH ×2 (06:01→12:03)
--- NOTE | 2017-06-19 06:04 | RADRPT ---
EXAM DATE/TIME: 06/19/2017 05:10 [facility] COMPARISON: CHEST SINGLE AP, June 17, 2017, 4:47. INDICATIONS : Shortness of breath. MEDICAL HISTORY : Chronic obstructive pulmonary disease. Diabetes mellitus type II. Hypertension. Stage 4 kidney di sease. Congestive heart failure. SURGICAL HISTORY : Umbilical hernia repair. Cholecystectomy. Appendectomy. hysterectomy. ENCOUNTER: Subsequent ACUITY: 3 weeks PAIN SCORE: Non-responsive. LOCATION: Bilateral chest FINDINGS: A single view of the chest demonstrates a both internal jugular lines are in stable position. Bluntin g of both costophrenic angles suggesting pleural effusions. Mild pulmonary hilar vascular consolidati on bilaterally.. The cardiomediastinal contours are unremarkable. Osseous structures are intact. CONCLUSION: Stable examination. 2 catheters are in good position. Winston Li MD on June 19, 2017 at 6:02 Board Certified Radiologist. This report was verified electronically.
[2017-06-19 06:15] LABS: APTT (PATIENT) 22.6 SEC (24.3-30.1)
[2017-06-19 06:24] LABS: ALKALINE PHOSPHATASE 47 U/L (45-117); ALT (GPT) 60 U/L (10-53); AST (GOT) 14 U/L (15-37); BLOOD UREA NITROGEN 138 MG/DL (7-18); GLOMERULAR FILTRATION RATE 5 ML/MIN (>89); TOTAL BILIRUBIN ADULT 0.6 MG/DL (0.2-1.0)
[2017-06-19] MEDS: RESP: ALBUTEROL 2.5 MG/IPRATROPIUM 0.5 MG NEB (SCH) NEB ×4 (07:55→20:47)
[2017-06-19] MEDS: CHLORHEXIDINE 0.12% (ORAL KIT) 15 ML CUP MT SCH (08:00)
[2017-06-19] MEDS: INSULIN DETEMIR 100 UNITS/ML VIAL SQ SCH ×2 (08:34→23:16)
[2017-06-19] MEDS: CALCIUM ACETATE 667 MG CAP PO SCH ×3 (08:34→18:26)
[2017-06-19] MEDS: VITAMIN B CMPLX/VITC/FOLIC AC CAP PO SCH (08:34)
[2017-06-19] MEDS: PANTOPRAZOLE SODIUM 40 MG VIAL IV PUSH SCH (08:34)
[2017-06-19] MEDS: FERROUS SULFATE 325 MG (65 MG ELEMENTAL IRON) TAB PO SCH (08:34)
[2017-06-19] MEDS: SODIUM CHLORIDE 0.9% FLUSH 10 ML FLUSH IV FLUSH SCH ×3 (08:35→23:17)
[2017-06-19] MEDS: BUDESONIDE-FORMOTEROL 160/4.5 MCG INHALER INH SCH ×2 (08:35→23:17)
--- NOTE | 2017-06-19 11:51 | HHI.PR ---
Subjective Remarks 76-year-old female who is seen today to assume care from critical care service. Patient is rather complicated with multiple problems with recurrent respiratory failure requiring intubation 2, remains on oxygen at this time. Manager Finance is following the patient for her underlying respiratory failure, chronic affective pulmonary disease. End-stage renal disease on dialysis. Patient has had Vas-Cath placed since 06/01/17. She has been undergoing dialysis on Mondays, Wednesdays, Fridays. Nephrology is following the patient. We'll need to touch base with nephrology to see if we can have a permacath placed. Patient has developed lower GI bleeding with blood clots. Plan for endoscopy today. GI is following the patient. Patient states that she is doing well. I discussed CODE STATUS with the patient because she indicated that she did not want to be put back on the machine again. However, she does want full aggressive measures still at this time. Objective Vital Signs Date Time Temp Pulse Resp B/P (MAP) Pulse Ox O2 Delivery O2 Flow Rate FiO2 06/19/17 11:01 70 23 150/56 (87) 96 06/19/17 10:01 74 21 157/79 (105) 96 06/19/17 10:00 72 06/19/17 09:01 70 20 154/71 (98) 96 06/19/17 08:01 97.0 70 20 169/83 (111) 99 06/19/17 08:00 97 Nasal Cannula 1.00 Humidified 06/19/17 08:00 65 06/19/17 07:57 99 Nasal Cannula 1.50 06/19/17 07:57 68 17 160/69 (99) 99 06/19/17 07:01 64 19 168/59 (95) 99 06/19/17 06:01 70 21 164/77 (106) 100 06/19/17 06:00 70 06/19/17 05:01 68 21 166/70 (102) 98 06/19/17 04:01 98.8 68 22 160/68 (98) 96 06/19/17 04:00 68 06/19/17 03:01 68 21 148/69 (95) 97 06/19/17 02:01 70 21 161/75 (103) 96 06/19/17 02:01 70 06/19/17 01:01 72 21 144/70 (94) 97 06/19/17 00:01 98.1 68 23 150/68 (95) 97 06/19/17 00:00 70 06/18/17 22:01 76 25 156/63 (94) 99 06/18/17 22:00 74 06/18/17 21:01 68 23 160/66 (97) 98 06/18/17 20:35 96 Nasal Cannula 2.00 06/18/17 20:01 98.8 70 23 163/78 (106) 97 06/18/17 20:00 69 06/18/17 19:01 68 21 167/71 (103) 98 06/18/17 19:00 98 Nasal Cannula 2.00 Humidified 06/18/17 18:00 76 28 170/85 (113) 94 06/18/17 18:00 76 06/18/17 17:01 74 24 171/61 (97) 97 06/18/17 16:01 98.2 72 23 172/86 (114) 98 06/18/17 16:01 72 06/18/17 15:01 68 22 179/83 (115) 97 06/18/17 14:01 70 20 176/73 (107) 97 06/18/17 14:01 70 06/18/17 13:01 66 20 171/76 (107) 97 06/18/17 12:01 98.4 64 19 163/67 (99) 97 06/18/17 12:00 64 I/O 06/18/17 06/18/17 06/18/17 06/19/17 06/19/17 06/19/17 07:00 15:00 23:00 07:00 15:00 23:00 Intake Total 290 ml 50 ml 770 ml 2550 ml Output Total 250 ml 200 ml 3000 ml Balance 40 ml 50 ml 570 ml -450 ml Intake Oral 240 ml 720 ml 2500 ml IV Total 50 ml 50 ml 50 ml 50 ml Stool Total 250 ml 200 ml 3000 ml Result Diagram: 06/19/1710 06/19/17 0510 Imaging Last Impressions Chest X-Ray 06/19/17 0600 Signed Impressions: Service Date/Time: Monday, June 19, 2017 05:10 - CONCLUSION: Stable examination. 2 catheters are in good position. Winston Li MD Renal Ultrasound 05/31/17 0000 Signed Impressions: Service Date/Time: Wednesday, May 31, 2017 08:54 - CONCLUSION: 1. Abnormal appearance to the left kidney with diminutive size and poor delineation of the parenchymal architecture. 2. No gross abnormality seen in the right kidney. Aramis Scott MD Objective Remarks GENERAL: Well-developed, well-nourished, in no acute distress. alert and orientated HEENT: Head is normocephalic without any lesions or masses noted. Facial features are symmetric. Eyes: Extraocular muscles are intact. Conjunctivae were clear. NECK: Supple without any masses. Trachea midline no deviation. No JVD, no bruits are appreciated CARDIAC: Regular rhythm, regular rate. S1/S2 are heard. No murmurs gallops or rubs. LUNGS: Diminished breath sounds noted throughout, mild wheeze noted bilaterally. No Rhonchi or rales. No use of accessory muscles on inspiration or expiration. ABDOMEN: Soft, nontender. Nondistended. Bowel sounds heard in all 4 quadrants. No organomegaly or masses. Negative rebound, negative guarding, rectal tube in place EXTREMITIES: No edema, pulses are equal bilaterally. No cyanosis or clubbing. Patient has multiple bruising, wounds on arms. There is a lesion on the left antecubital fossa with possible necrosis in the center. There is palpable veins going down that arm NEUROLOGY: Mood and affect appear appropriate. Cranial nerves II through XII grossly intact. Muscle strength 5/5 in upper and lower extremities bilaterally. Deep tendon reflexes are 2+ in upper and lower extremities bilaterally. A/P Assessment and Plan Acute hypercapnic respiratory failure secondary to acute chronic obstructive pulmonary disease exacerbation in a chronic smoking patient, recurrent and persistent Status post ventilator management with intubation 06/01, extubated 06/05/17, reintubated 06/12/17, extubated 06/16/17 Manager Finance is following the patient Incentive spirometry/Acapella Solu-Medrol 40 mg IV every 12 hours Duo nebs every 6 hours while awake, and every 2 hours as needed Symbicort inhaler every 12 hours Follow-up chest x-rays shows stable examination with blunting of both costophrenic angles suggesting pleural effusions. Mild pulmonary hilar vascular consolidation bilaterally. Fluid overload, multifactorial with pulmonary vascular congestion on chest x-ray , renal failure, atrial fibrillation, which could be contributing to patient's recurrent respiratory failure Patient is anuric secondary to renal failure Unable to diuresis secondary to renal failure Continue dialysis for fluid removal Echocardiogram indicates ejection fraction 50-55%, left ventricular function is possibly low normal. We'll need to evaluate IV medication changed to by mouth medications to avoid excessive fluid input Chronic kidney disease stage IV now likely end-stage renal disease for long- term dialysis Associated hyperphosphatemia, hypermagnesemia Nephrology following the patient and managing dialysis Monday, Monday and Monday Calcium acetate 1334 mg 3 times a day Vas-Cath placed 06/01 Will need permacath placement, will confirm with nephrology and try to have done tomorrow Lower GI bleed with bloody clots in stool GI consulted Plans for endoscopy today Protonix 40 mg IV every 12 hours Diarrhea illness C. difficile culture has been performed twice which have remained negative Imodium as needed Atrial fibrillation, rate controlled Status post Cardizem IV Echocardiogram was performed which did not indicate any valvular abnormalities Patient remains on Cardizem 30 mg every 6 hours, will start Cardizem CD 180 mg and discontinue short acting Cardizem Community acquired pneumonia, resolved Patient completed Rocephin IV for 8 days Sputum culture indicates Klebsiella, Escherichia coli, both of which were sensitive to Rocephin Repeat culture showed heavy growth of normal respiratory maureen Hypertension, hyperlipidemia Blood pressure mildly high at this time, patient has had episodes of hypotension during dialysis requiring pressors NINI inhibitor discontinued secondary to renal failure Cardizem continued for rate control and pressure management Statin continued Diabetes Levemir 25 units subcutaneously every 12 hours Accu-Cheks with sliding scale insulin 35 units in the last 24 hours, however none since 3 AM, this is likely secondary to patient nothing by mouth for procedures Will need to continue monitor and adjust Levemir and sliding scale insulin accordingly Leukocytosis Likely secondary to combination of infection, steroid use Monitor CBC Funguria, asymptomatic Patient is anuric Anxiety Continue Xanax DVT prevention Sequential compression devices, avoid chemical prophylaxis secondary to lower GI bleed Lines Vas-Cath right internal jugular placed 06/01/17, consulting interventional radiology for placement of permacath for tomorrow Left internal jugular venous line placed 06/12/17, day #8 Peripheral IV Chris Waite Jun 19, 2017 11:51
[2017-06-19] MEDS: methylPREDNISolone SOD SUCC 40 MG/1 ML VIAL IV PUSH SCH ×2 (12:03→23:17)
[2017-06-19] MEDS ORDERED: CHLORHEXIDINE GLUCONATE 2 % 1 PACK (2 CLOTHS) TOPICAL PRN (16:00)
[2017-06-19] MEDS ORDERED: POVIDONE IODINE 5% (ANTISEPSIS KIT) 4 APPLICATIONS EACH NARE PRN (16:00)
[2017-06-19] MEDS ORDERED: SODIUM CHLORID 0.9% 500 ML IV PRN (16:00)
[2017-06-19] MEDS ORDERED: METOPROLOL TARTRATE 25 MG TAB PO PRN (16:00)
[2017-06-19] MEDS ORDERED: INSULIN HUMAN REGULAR 1,000 UNITS/10 ML VIAL SQ PRN (16:00)
[2017-06-19] MEDS ORDERED: LACTATED RINGER'S 1000 ML IV PRN (16:00)
--- NOTE | 2017-06-19 16:22 | GIPROC ---
[facility] [address] [place] [address], [id number] COLONOSCOPY PROCEDURE REPORT EXAM DATE: 06/19/2017 PATIENT NAME: Silvia Wilkinson MR #: [id number] BIRTHDATE: 1940 ENDOSCOPIST: Danna Moseley MD ORDER #: [id number] JAVA LEAD DEVELOPER: Jones Green and Meron Campos STATUS: inpatient INDICATIONS: The patient is a 76 yr old female here for a colonoscopy due to anemia, gi bleeding PROCEDURE PERFORMED: colonoscopy wit clips application MEDICATIONS: None and Per Anesthesia. PREP QUALITY: fair PREP TYPE:Other: ESTIMATED BLOOD LOSS: None CONSENT: The patient understands the risks and benefits of the procedure and understands that these risks include, but are not limited to: sedation, allergic reaction, infection, perforation and/or bleeding. Alternative means of evaluation and treatment include, among others: physical exam, x-rays, and/or surgical intervention. The patient elects to proceed with this endoscopic procedure. medical equipment was checked for proper function. Hand hygiene and appropriate measures for infection prevention was taken. After the risks, benefits and alternatives of the procedure were thoroughly explained, Informed consent was verified, confirmed and timeout was successfully executed by the treatment team. A digital exam revealed external hemorrhoids and revealed decreased sphincter tone The Pentax EC-[id number] endoscope was introduced through the anus and advanced to the cecum, which was identified by both the appendix and ileocecal valve. The instrument was then slowly withdrawn as the colon was fully examined. COLON FINDINGS: Ulcer cecum-vissible vessel- 2 clips applied ulcer in ascending colon-biopsy ulcer in transverse colon-biopsy diverticulosis sigmoid,descending. Retroflexed views revealed internal hemorrhoids and Retroflexed views revealed medium internal hemorrhoids The scope was then completely withdrawn from the patient and the procedure terminated. PROCEDURE WITHDRAWAL TIME:6minutes ADVERSE EVENTS: There were no complications. IMPRESSIONS: 1. Ulcer cecum-vissible vessel- 2 clips applied ulcer in ascending colon-biopsy ulcer in transverse colon-biopsy diverticulosis sigmoid,descending 2. Retroflexed views revealed internal hemorrhoids 3. Retroflexed views revealed medium internal hemorrhoids 4. Revealed external hemorrhoids 5. Revealed decreased sphincter tone RECOMMENDATIONS: 1. Await biopsy results. Biopsy results will not be ready for 7-10 days. If you don't hear from us in two weeks, call our office for results. 2. Probiotics from any [employer] or health food store 3. Yearly rectal exams 4. Resume diet RECALL: Return 1 month Colonoscopy Danna Moseley MD eSigned: Danna Moseley MD 06/19/2017 4:21 PM cc: PATIENT NAME: Silvia Wilkinson MR#: [id number]
--- NOTE | 2017-06-19 16:23 | GIPROC ---
[facility] [address] [place] [address], [id number] EGD PROCEDURE REPORT EXAM DATE: 06/19/2017 PATIENT NAME: Silvia Wilkinson MR #: [id number] BIRTHDATE: 1940 ATTENDING: Danna Moseley MD ORDER #: [id number] PRODUCTION MANUFACTURING WORKER: Meron Campos and Jones Green STATUS: inpatient INDICATIONS: The patient is a 76 yr old female here for an EGD due to anemai, gi bleeding PROCEDURE PERFORMED: EGD w/ biopsy MEDICATIONS: None and Per Anesthesia. TOPICAL ANESTHETIC: none CONSENT: The patient understands the risks and benefits of the procedure and understands that these risks include, but are not limited to: sedation, allergic reaction, infection, perforation and/or bleeding. Alternative means of evaluation and treatment include, among others: physical exam, x-rays, and/or surgical intervention. The patient elects to proceed with this endoscopic procedure. medical equipment was checked for proper function. Hand hygiene and appropriate measures for infection prevention was taken. After the risks, benefits and alternatives of the procedure were thoroughly explained, Informed consent was verified, confirmed and timeout was successfully executed by the treatment team. The patient was anesthetized with topical anesthesia and the EC-[id number] (Pedi C) endoscope was introduced through the mouth and advanced to the second portion of the duodenum. Retroflexed views revealed a hiatal hernia The gastroscope was then slowly withdrawn and removed. Gastritis antrum-biopsy duodenum normal-biopsy. ADVERSE EVENTS: There were no complications. IMPRESSIONS: 1. Gastritis antrum-biopsy duodenum normal-biopsy 2. Retroflexed views revealed a hiatal hernia RECOMMENDATIONS: 1. Await biopsy results. Biopsy results will not be ready for 7-10 days. If you don't hear from us in two weeks, call our office for biopsy results. 2. Anti-reflux regimen 3. Continue PPI 4. Avoid NSAIDS PATIENT CONDITION: stable DISPOSITION: Inpatient REPEAT EXAM: Return 3 months EGD Danna Moseley MD eSigned: Danna Moseley MD 06/19/2017 4:23 PM cc:
[2017-06-19] MEDS ORDERED: VANCOMYCIN INJ 1,000 MG in SODIUM CHLOR 0.9% 250 ML INJ 250 ML IV SCH (16:30)
[2017-06-19] MEDS ORDERED: ceFAZolin 2 GM PREMIX 50 ML IV SCH (16:30)
[2017-06-19] MEDS: RESP: ALBUTEROL 2.5 MG/IPRATROPIUM 0.5 MG NEB (PRN) NEB (16:45)
[2017-06-19] MEDS ORDERED: PROPOFOL 200 MG/20 ML AMP IV ONE (16:47)
--- NOTE | 2017-06-19 17:27 | HHI.PR ---
Subjective Remarks 76 YOWF with VDRF,Ac renal Failure,DM, Met acidosis No Fever Extubated, on NC Alert awake feels weak, mild sob Objective Vital Signs Vital Signs Date Time Temp Pulse Resp B/P (MAP) Pulse Ox O2 Delivery O2 Flow Rate FiO2 06/19/17 16:48 95 Nasal Cannula 1.00 06/19/17 15:01 76 23 175/84 (114) 97 06/19/17 14:00 76 06/19/17 14:00 76 22 168/68 (101) 98 06/19/17 13:01 74 25 159/69 (99) 97 06/19/17 12:01 97.9 80 34 176/70 (105) 97 06/19/17 12:01 80 06/19/17 11:01 70 23 150/56 (87) 96 06/19/17 10:01 74 21 157/79 (105) 96 06/19/17 10:00 72 06/19/17 09:01 70 20 154/71 (98) 96 06/19/17 08:01 97.0 70 20 169/83 (111) 99 06/19/17 08:00 97 Nasal Cannula 1.00 Humidified 06/19/17 08:00 65 06/19/17 07:57 99 Nasal Cannula 1.50 06/19/17 07:57 68 17 160/69 (99) 99 06/19/17 07:01 64 19 168/59 (95) 99 06/19/17 06:01 70 21 164/77 (106) 100 06/19/17 06:00 70 06/19/17 05:01 68 21 166/70 (102) 98 06/19/17 04:01 98.8 68 22 160/68 (98) 96 06/19/17 04:00 68 06/19/17 03:01 68 21 148/69 (95) 97 06/19/17 02:01 70 21 161/75 (103) 96 06/19/17 02:01 70 06/19/17 01:01 72 21 144/70 (94) 97 06/19/17 00:01 98.1 68 23 150/68 (95) 97 06/19/17 00:00 70 06/18/17 22:01 76 25 156/63 (94) 99 06/18/17 22:00 74 06/18/17 21:01 68 23 160/66 (97) 98 06/18/17 20:35 96 Nasal Cannula 2.00 06/18/17 20:01 98.8 70 23 163/78 (106) 97 06/18/17 20:00 69 06/18/17 19:01 68 21 167/71 (103) 98 06/18/17 19:00 98 Nasal Cannula 2.00 Humidified 06/18/17 18:00 76 28 170/85 (113) 94 06/18/17 18:00 76 I/O 06/18/17 06/18/17 06/18/17 06/19/17 06/19/17 06/19/17 07:00 15:00 23:00 07:00 15:00 23:00 Intake Total 290 ml 50 ml 770 ml 2550 ml 50 ml 100 ml Output Total 250 ml 200 ml 3000 ml Balance 40 ml 50 ml 570 ml -450 ml 50 ml 100 ml Intake Oral 240 ml 720 ml 2500 ml IV Total 50 ml 50 ml 50 ml 50 ml 50 ml Other 100 ml Stool Total 250 ml 200 ml 3000 ml Result Diagram: 06/19/17 0510 06/19/17 0510 Objective Remarks GENERAL: WBWN WF, On NC SKIN: Warm and dry. HEAD: Normocephalic. EYES: No scleral icterus. No injection or drainage. NECK: Supple, trachea midline. No JVD or lymphadenopathy. CARDIOVASCULAR: Regular rate and rhythm without murmurs, gallops, or rubs. RESPIRATORY: Breath sounds equal bilaterally. No accessory muscle use. GASTROINTESTINAL: Abdomen soft, non-tender, nondistended. MUSCULOSKELETAL: No cyanosis, or edema. BACK: Nontender without obvious deformity. No CVA tenderness. A/P Assessment and Plan VDRF, s/p Extubation COPD Ac renal Failure DM Nicotine use AF with RVR, converted to NSR PLAN: Aerosol nebs Supplement 02 Monitor RYAN Tucker qid. Solumedrol 40 mg q 12 hrs CPAP prn Jac Hammonds MD Jun 19, 2017 17:27
--- NOTE | 2017-06-19 18:06 | HHI.NPPN ---
Subjective History of Present Illness 76-year-old female with past medical history of hypertension, diabetes mellitus, hyperlipidemia, ischemic heart disease, chronic kidney disease, chronic obstructive pulmonary disease was admitted because of generalized weakness, decreased urine output. I he was called to see the patient for elevated BUN and creatinine. The patient is known to me from before. She has been following with me in the office and last time I saw her was on May 04 and at that time her creatinine was 2.2 with given the GFR of 19-20 she had advanced stage IV chronic kidney disease most likely because of diabetic nephropathy. Additional Remarks This is a late entry for note for 06/16/17. Patient was seen intubated and awake, open eyes, off sedation. Review of Systems General General Remarks Intubated and sedated. Objective Data Data 06/19/17 06/20/17 19:00 07:00 Intake Total 150 ml Balance 150 ml IV Total 50 ml Other 100 ml Vital Signs Date Time Temp Pulse Resp B/P (MAP) Pulse Ox O2 Delivery O2 Flow Rate FiO2 06/19/17 16:48 95 Nasal Cannula 1.00 06/19/17 15:01 76 23 175/84 (114) 97 06/19/17 14:00 76 06/19/17 14:00 76 22 168/68 (101) 98 06/19/17 13:01 74 25 159/69 (99) 97 06/19/17 12:01 97.9 80 34 176/70 (105) 97 06/19/17 12:01 80 06/19/17 11:01 70 23 150/56 (87) 96 06/19/17 10:01 74 21 157/79 (105) 96 06/19/17 10:00 72 06/19/17 09:01 70 20 154/71 (98) 96 06/19/17 08:01 97.0 70 20 169/83 (111) 99 06/19/17 08:00 97 Nasal Cannula 1.00 Humidified 06/19/17 08:00 65 06/19/17 07:57 99 Nasal Cannula 1.50 06/19/17 07:57 68 17 160/69 (99) 99 06/19/17 07:01 64 19 168/59 (95) 99 06/19/17 06:01 70 21 164/77 (106) 100 06/19/17 06:00 70 06/19/17 05:01 68 21 166/70 (102) 98 06/19/17 04:01 98.8 68 22 160/68 (98) 96 06/19/17 04:00 68 06/19/17 03:01 68 21 148/69 (95) 97 06/19/17 02:01 70 21 161/75 (103) 96 06/19/17 02:01 70 06/19/17 01:01 72 21 144/70 (94) 97 06/19/17 00:01 98.1 68 23 150/68 (95) 97 06/19/17 00:00 70 06/18/17 22:01 76 25 156/63 (94) 99 06/18/17 22:00 74 06/18/17 21:01 68 23 160/66 (97) 98 06/18/17 20:35 96 Nasal Cannula 2.00 06/18/17 20:01 98.8 70 23 163/78 (106) 97 06/18/17 20:00 69 06/18/17 19:01 68 21 167/71 (103) 98 06/18/17 19:00 98 Nasal Cannula 2.00 Humidified -: 06/19/17 0510 06/19/17 0510 Physical Exam General Appearance Remarks Intubated and awake. Eyes Eye Exam: Pupils Equal Throat Throat Exam: Oral Mucosa [place] & Moist Neck Neck Exam: Neck Supple Pulmonary Resp Exam: Breath Sounds Equal, Rhonchi, Decreased Bases, Diminished Breath Sounds, Poor Inspiratory Effort Cardiology CV Exam: Regular, Normal Sinus Rhythm Gastrointestinal/Abdomen GI Exam: Soft, Non-Tender, Bowel Sounds Present, Distended Extremeties Extremities Exam: Trace Edema Neurologic Neuro Exam: Awake Assessment/Plan Assessment Summary: [place]/Acute Renal Failure, Hypertension, CKD Stage IV Problem List: (1) Chronic kidney disease (CKD) ICD Codes: N18.9 - Chronic kidney disease, unspecified (2) Oliguria ICD Codes: R34 - Anuria and oliguria (3) Diarrhea ICD Codes: R19.7 - Diarrhea, unspecified (4) Metabolic acidosis ICD Codes: E87.2 - Acidosis Status: Acute (5) Uremia ICD Codes: N19 - Unspecified kidney failure Status: Acute (6) Acute renal failure ICD Codes: N17.9 - Acute kidney failure, unspecified Status: Acute Plan Patient has advance stage 4 chronic kidney disease, approach stage 5. Started on HD. Patient will need AVF, when stable and care home HD. Patient has COPD with high CO2 and developing SOB off and on. Off vent doing better BP is stable. Hgb. is better now,on Epogen. HD will be done today. Weaning as tolerated. Remove fluid with HD. Problem Qualifiers (1) Chronic kidney disease (CKD): Qualified Codes: N18.5 - Chronic kidney disease, stage 5 (2) Acute renal failure: Qualified Codes: N17.9 - Acute kidney failure, unspecified Lexy Lee MD Jun 19, 2017 18:06
--- NOTE | 2017-06-19 18:07 | HHI.NPPN ---
Subjective History of Present Illness 76-year-old female with past medical history of hypertension, diabetes mellitus, hyperlipidemia, ischemic heart disease, chronic kidney disease, chronic obstructive pulmonary disease was admitted because of generalized weakness, decreased urine output. I he was called to see the patient for elevated BUN and creatinine. The patient is known to me from before. She has been following with me in the office and last time I saw her was on May 04 and at that time her creatinine was 2.2 with given the GFR of 19-20 she had advanced stage IV chronic kidney disease most likely because of diabetic nephropathy. Additional Remarks Patient is alert, with nasal cannula, and getting Nebulizer treatment. Review of Systems General General Remarks Intubated and sedated. Objective Data Data 06/19/17 06/20/17 19:00 07:00 Intake Total 150 ml Balance 150 ml IV Total 50 ml Other 100 ml Vital Signs Date Time Temp Pulse Resp B/P (MAP) Pulse Ox O2 Delivery O2 Flow Rate FiO2 06/19/17 16:48 95 Nasal Cannula 1.00 06/19/17 15:01 76 23 175/84 (114) 97 06/19/17 14:00 76 06/19/17 14:00 76 22 168/68 (101) 98 06/19/17 13:01 74 25 159/69 (99) 97 06/19/17 12:01 97.9 80 34 176/70 (105) 97 06/19/17 12:01 80 06/19/17 11:01 70 23 150/56 (87) 96 06/19/17 10:01 74 21 157/79 (105) 96 06/19/17 10:00 72 06/19/17 09:01 70 20 154/71 (98) 96 06/19/17 08:01 97.0 70 20 169/83 (111) 99 06/19/17 08:00 97 Nasal Cannula 1.00 Humidified 06/19/17 08:00 65 06/19/17 07:57 99 Nasal Cannula 1.50 06/19/17 07:57 68 17 160/69 (99) 99 06/19/17 07:01 64 19 168/59 (95) 99 06/19/17 06:01 70 21 164/77 (106) 100 06/19/17 06:00 70 06/19/17 05:01 68 21 166/70 (102) 98 06/19/17 04:01 98.8 68 22 160/68 (98) 96 06/19/17 04:00 68 06/19/17 03:01 68 21 148/69 (95) 97 06/19/17 02:01 70 21 161/75 (103) 96 06/19/17 02:01 70 06/19/17 01:01 72 21 144/70 (94) 97 06/19/17 00:01 98.1 68 23 150/68 (95) 97 06/19/17 00:00 70 06/18/17 22:01 76 25 156/63 (94) 99 06/18/17 22:00 74 06/18/17 21:01 68 23 160/66 (97) 98 06/18/17 20:35 96 Nasal Cannula 2.00 06/18/17 20:01 98.8 70 23 163/78 (106) 97 06/18/17 20:00 69 06/18/17 19:01 68 21 167/71 (103) 98 06/18/17 19:00 98 Nasal Cannula 2.00 Humidified -: 06/19/17 0510 06/19/17 0510 Physical Exam General Appearance: No Acute Distress, Comfortable Eyes Eye Exam: Pupils Equal Throat Throat Exam: Oral Mucosa [place] & Moist Neck Neck Exam: Neck Supple Pulmonary Resp Exam: Breath Sounds Equal, Rhonchi, Decreased Bases, Diminished Breath Sounds, Poor Inspiratory Effort Cardiology CV Exam: Regular, Normal Sinus Rhythm Gastrointestinal/Abdomen GI Exam: Soft, Non-Tender, Bowel Sounds Present, Distended Extremeties Extremities Exam: Trace Edema Neurologic Neuro Exam: Alert, Awake, Oriented Psychiatric Psych Exam: Appropriate Responses Assessment/Plan Assessment Summary: [place]/Acute Renal Failure, Hypertension, CKD Stage IV Problem List: (1) Chronic kidney disease (CKD) ICD Codes: N18.9 - Chronic kidney disease, unspecified (2) Oliguria ICD Codes: R34 - Anuria and oliguria (3) Diarrhea ICD Codes: R19.7 - Diarrhea, unspecified (4) Metabolic acidosis ICD Codes: E87.2 - Acidosis Status: Acute (5) Uremia ICD Codes: N19 - Unspecified kidney failure Status: Acute (6) Acute renal failure ICD Codes: N17.9 - Acute kidney failure, unspecified Status: Acute Plan Patient has advance stage 4 chronic kidney disease, approach stage 5. Started on HD. Patient will need AVF, when stable and fpc HD. Patient has COPD with high CO2 and developing SOB off and on. Off vent doing better BP is stable. Hgb. is better now,on Epogen. HD will be done today. Remove fluid with HD. To get PermCath. Problem Qualifiers (1) Chronic kidney disease (CKD): Qualified Codes: N18.5 - Chronic kidney disease, stage 5 (2) Acute renal failure: Qualified Codes: N17.9 - Acute kidney failure, unspecified Lexy Lee MD Jun 19, 2017 18:07
[2017-06-19] MEDS: DILTIAZEM-CD 180 MG CAP ER PO SCH (18:26)
[2017-06-19] MEDS: PANTOPRAZOLE SOD 40 MG DELAYED RELEASE TAB PO SCH (23:16)
[2017-06-19] MEDS: ATORVASTATIN 40 MG TAB PO SCH (23:20)
[2017-06-19] MEDS: ALPRAZolam 0.25 MG TAB PO PRN (23:22)
[2017-06-20] VITALS (32 sets, daily range): BP systolic 126–191; BP diastolic 53–93; PULSE 66–90; RESP 18–32; TEMP 97.9–99.4; O2SAT 91–100
[2017-06-20] MEDS: INSULIN NovoLIN REGULAR SUPPLEMENTAL SCALE SQ SCH ×5 (03:36→23:47)
[2017-06-20] MEDS: CHLORHEXIDINE GLUCONATE 2 % 1 PACK (2 CLOTHS) TOP SCH (03:36)
[2017-06-20] MEDS: RESP: ALBUTEROL 2.5 MG/IPRATROPIUM 0.5 MG NEB (PRN) NEB ×3 (03:38→10:49)
[2017-06-20 05:54] LABS: AUTOMATED NEUTROPHIL # 15.1 TH/MM3 (1.8-7.7); BASOPHIL % 0.1 % (0.0-2.0); EOSINOPHIL % 0.3 % (0.0-4.0); HEMATOCRIT 24.7 % (35.0-46.0); HEMO FLAGS DIFF FINAL; LYMPH % 2.1 % (9.0-44.0); LYMPHOCYTE # 0.3 TH/MM3 (1.0-4.8); MEAN CELL VOLUME 84.3 FL (80.0-100.0); MEAN CORPUSCULAR HEMOGLOBIN 27.9 PG (27.0-34.0); MONO % 3.6 % (0.0-8.0); NEUT % 93.9 % (16.0-70.0); PLATELET COUNT 116 TH/MM3 (150-450); RED BLOOD COUNT 2.93 MIL/MM3 (4.00-5.30); RED CELL DISTRIBUTION WIDTH 20.5 % (11.6-17.2)
[2017-06-20 06:05] LABS: POTASSIUM 4.2 MEQ/L (3.5-5.1)
[2017-06-20 06:09] LABS: BICARBONATE 24.4 MEQ/L (21.0-32.0); MAGNESIUM 2.6 MG/DL (1.5-2.5)
[2017-06-20] MEDS: ALPRAZolam 0.25 MG TAB PO PRN (06:53)
[2017-06-20] MEDS: RESP: ALBUTEROL 2.5 MG/IPRATROPIUM 0.5 MG NEB (SCH) NEB ×5 (08:16→23:55)
[2017-06-20] MEDS: BUDESONIDE-FORMOTEROL 160/4.5 MCG INHALER INH SCH ×2 (08:55→20:21)
[2017-06-20] MEDS: DILTIAZEM-CD 180 MG CAP ER PO SCH (08:55)
[2017-06-20] MEDS: PANTOPRAZOLE SOD 40 MG DELAYED RELEASE TAB PO SCH ×2 (08:55→20:20)
[2017-06-20] MEDS: CALCIUM ACETATE 667 MG CAP PO SCH ×3 (08:55→18:00)
[2017-06-20] MEDS: VITAMIN B CMPLX/VITC/FOLIC AC CAP PO SCH (08:56)
[2017-06-20] MEDS: FERROUS SULFATE 325 MG (65 MG ELEMENTAL IRON) TAB PO SCH (08:56)
[2017-06-20] MEDS: INSULIN DETEMIR 100 UNITS/ML VIAL SQ SCH ×2 (08:56→20:43)
[2017-06-20] MEDS: SODIUM CHLORIDE 0.9% FLUSH 10 ML FLUSH IV FLUSH SCH ×3 (08:57→20:21)
--- NOTE | 2017-06-20 10:36 | HHI.PR ---
Subjective Remarks Patient short of breath, has labored breathing this morning. Went down for permacath but was unable to lay flat for the procedure. Underwent dialysis yesterday. Apparently when patient was on BiPAP in the past she had to be placed on Precedex drip. No further GI bleeding. In NSR. Discussed with RN, RT and panel raiser operator. Objective Vitals Vital Signs Date Time Temp Pulse Resp B/P (MAP) Pulse Ox O2 Delivery O2 Flow Rate FiO2 06/20/17 08:16 91 Nasal Cannula 3.00 06/20/17 07:01 80 22 158/83 (108) 95 06/20/17 07:00 97 Bi-Pap 40 06/20/17 06:15 90 Nasal Cannula 3.00 Humidified 06/20/17 06:01 82 31 164/53 (90) 92 06/20/17 06:00 78 06/20/17 05:01 82 22 174/72 (106) 95 06/20/17 05:00 84 06/20/17 04:25 94 Nasal Cannula 2.00 Humidified 06/20/17 04:01 98.1 78 22 157/64 (95) 95 06/20/17 04:00 84 06/20/17 03:01 78 22 155/58 (90) 96 06/20/17 02:00 80 06/20/17 02:00 80 23 149/57 (87) 97 06/20/17 01:00 84 23 126/56 (79) 92 06/20/17 00:08 93 Nasal Cannula 2.00 Humidified 06/20/17 00:08 97.9 84 32 146/56 (86) 93 06/20/17 00:00 90 06/19/17 23:30 92 29 151/74 (99) 92 06/19/17 23:15 78 33 140/62 (88) 92 06/19/17 23:00 80 30 135/72 (93) 92 06/19/17 22:45 74 31 137/55 (82) 94 06/19/17 22:30 84 25 136/51 (79) 94 06/19/17 22:15 78 20 73/60 (64) 96 06/19/17 22:00 84 06/19/17 22:00 84 06/19/17 22:00 84 19 107/51 (69) 96 06/19/17 21:45 90 22 116/54 (74) 94 06/19/17 21:30 94 28 121/57 (78) 93 06/19/17 21:15 96 24 122/59 (80) 94 06/19/17 21:00 94 31 125/63 (83) 95 06/19/17 20:47 94 Nasal Cannula 1.00 06/19/17 20:45 90 25 161/77 (105) 94 06/19/17 20:30 92 29 192/74 (113) 93 06/19/17 20:26 86 28 178/99 (125) 97 06/19/17 20:00 98.0 84 25 176/74 (108) 96 06/19/17 20:00 84 06/19/17 19:00 94 Nasal Cannula 1.00 Humidified 06/19/17 19:00 82 26 173/74 (107) 94 06/19/17 18:00 80 06/19/17 18:00 80 24 163/73 (103) 96 06/19/17 17:00 80 26 181/72 (108) 97 06/19/17 16:48 95 Nasal Cannula 1.00 06/19/17 16:33 98.2 78 26 169/66 (100) 96 06/19/17 15:01 76 23 175/84 (114) 97 06/19/17 14:00 76 06/19/17 14:00 76 22 168/68 (101) 98 06/19/17 13:01 74 25 159/69 (99) 97 06/19/17 12:01 97.9 80 34 176/70 (105) 97 06/19/17 12:01 80 06/19/17 11:01 70 23 150/56 (87) 96 I/O 06/19/17 06/19/17 06/19/17 06/20/17 06/20/17 06/20/17 07:00 15:00 23:00 07:00 15:00 23:00 Intake Total 2550 ml 50 ml 100 ml 240 ml Output Total 3000 ml 75 ml 2500 ml Balance -450 ml 50 ml 25 ml -2260 ml Intake Oral 2500 ml 240 ml IV Total 50 ml 50 ml Other 100 ml Output Urine Total 75 ml Stool Total 3000 ml Hemodialysis 2500 ml # Voids 4 # Bowel Movements 1 Result Diagram: 06/20/1753906/20/17539 Objective Remarks GENERAL: Well-nourished, well-developed CF patient with labored breathing. SKIN: Warm and dry. HEAD: Normocephalic. EYES: No scleral icterus. No injection or drainage. NECK: Supple, trachea midline. No JVD or lymphadenopathy. CARDIOVASCULAR: Regular rate and rhythm without murmurs, gallops, or rubs. RESPIRATORY: Diffuse exp wheezing b/l with moderately labored breathing on 3 liters NC. GASTROINTESTINAL: Abdomen soft, non-tender, nondistended. EXTREMITIES: No cyanosis, or edema. NEUROLOGICAL: Awake, alert, and oriented x 3. Non-focal. Procedures Extubated 06/05 and 06/16 Date of Insertion: Jun 12, 2017 Line: Central Venous Catheter Side: Left Location: Internal, Jugular A/P Problem List: (1) Acute renal failure ICD Code: N17.9 - Acute kidney failure, unspecified Status: Acute (2) Community acquired pneumonia ICD Code: J18.9 - Pneumonia, unspecified organism Status: Resolved (3) Anxiety ICD Code: F41.9 - Anxiety disorder, unspecified Status: Chronic (4) COPD exacerbation ICD Code: J44.1 - Chronic obstructive pulmonary disease with (acute) exacerbation Status: Acute (5) Paroxysmal atrial fibrillation ICD Code: I48.0 - Paroxysmal atrial fibrillation Status: Resolved (6) Anemia ICD Code: D64.9 - Anemia, unspecified Status: Chronic (7) DM2 (diabetes mellitus, type 2) ICD Code: E11.9 - Type 2 diabetes mellitus without complications Status: Chronic (8) Acute and chronic respiratory failure ICD Code: J96.20 - Acute and chronic respiratory failure, unspecified whether with hypoxia or hypercapnia Status: Acute (9) Atrial fibrillation with RVR ICD Code: I48.91 - Unspecified atrial fibrillation Status: Resolved Assessment and Plan Acute hypercapnic respiratory failure secondary to acute chronic obstructive pulmonary disease exacerbation in a chronic smoking patient, recurrent and persistent Status post ventilator management with intubation 06/01, extubated 06/05/17, reintubated 06/12/17, extubated 06/16/17 Significant respiratory distress again today, stat ABG ordered and reviewed does not show significant CO2 retention however she has significant labored breathing and wheezing on exam. We'll place her on BiPAP. Ativan as needed for anxiety. Patient was reevaluated after BiPAP was placed and was tolerating it well. Stat chest x-ray was ordered and reviewed by myself, shows no changes , stable bibasilar opacities right greater than left probable small pleural effusions. Technical Operator is following the patient/Dr. Hammonds Incentive spirometry/[place] Increase Solu-Medrol to 60 mg IV every 12 hours Increase Duo nebs every 4 hours while awake, and every 2 hours as needed Symbicort inhaler every 12 hours Discussed with panel raiser operator Dr. Schultz Fluid overload, multifactorial with pulmonary vascular congestion on chest x-ray , renal failure, atrial fibrillation, which could be contributing to patient's recurrent respiratory failure Patient is anuric secondary to renal failure Continue dialysis for fluid removal Echocardiogram indicates ejection fraction 50-55%, left ventricular function is possibly low normal. Chronic kidney disease stage IV now likely end-stage renal disease for long- term dialysis Associated hyperphosphatemia, hypermagnesemia Nephrology following the patient and managing dialysis Monday, Monday and Monday Calcium acetate 1334 mg 3 times a day Vas-Cath placed 06/01 Will need permacath placement, this will need to be rescheduled for 1 respiratory status improved Lower GI bleed with bloody clots in stool Status post panendoscopy yesterday showing gastritis, hiatal hernia, diverticulosis, transverse colon ulcers, she underwent clipping of a cecal ulcer that had an obvious vessel Continue PPI Follow hemoglobin, monitor for any further bleeding Diarrhea illness C. difficile culture has been performed twice which have remained negative Imodium as needed Atrial fibrillation with atrial fibrillation now converted to normal sinus rhythm Status post Cardizem IV Echocardiogram was performed which did not indicate any valvular abnormalities Continue Cardizem CD 180 mg No anticoagulation in view of rectal bleeding Community acquired pneumonia, resolved Patient completed Rocephin IV for 8 days Sputum culture indicates Klebsiella, Escherichia coli, both of which were sensitive to Rocephin Repeat culture showed heavy growth of normal respiratory maureen Chest x-ray stable bibasilar pleural effusions Hypertension, hyperlipidemia Blood pressure mildly high at this time, patient has had episodes of hypotension during dialysis requiring pressors NINI inhibitor discontinued secondary to renal failure Cardizem continued for rate control and pressure management Statin continued Diabetes Levemir 25 units subcutaneously every 12 hours Accu-Cheks with sliding scale insulin Leukocytosis Likely secondary to combination of infection, steroid use Monitor CBC Funguria, asymptomatic Patient is anuric Anxiety Continue Xanax DVT prevention Sequential compression devices, avoid chemical prophylaxis secondary to lower GI bleed Lines Vas-Cath right internal jugular placed 06/01/17 Left internal jugular venous line placed 06/12/17 Peripheral IV Critical care time 45 minutes. Problem Qualifiers (1) Acute renal failure: Qualified Codes: N17.9 - Acute kidney failure, unspecified Reyna Conte MD Jun 20, 2017 10:36
[2017-06-20 10:38] LABS: BLOOD GAS BASE EXCESS -0.4 mmol/L (-2-2); BLOOD GAS CARBOXYHEMOGLOBIN 1.6 % (0-4); BLOOD GAS HCO3 25 mmol/L (22-26); BLOOD GAS METHEMOGLOBIN 1.5 % (0-2); BLOOD GAS O2 HGB SATURATION 85 % (90-100); BLOOD GAS OXYGEN CONTENT 9.8 Vol % (12.0-20.0); BLOOD GAS PCO2 47 mmHg (38-42); BLOOD GAS PO2 60 mmHg (61-120); BLOOD GAS TOTAL HGB 8.2 G/DL (12.0-16.0)
[2017-06-20 10:39] LABS: CRITICAL VALUE YES; DRAW SITE RT RADIAL; LITER FLOW 3 L/M; NUMBER OF ARTERIAL PUNCTURES 1; OXYGEN DEVICE NASAL CANNULA; STAT NO; ULNAR PULSE PRESENT
--- NOTE | 2017-06-20 11:04 | RADRPT ---
EXAM DATE/TIME: 06/20/2017 10:53 [facility] COMPARISON: CHEST SINGLE AP, June 19, 2017, 5:10. INDICATIONS : Short of breath. MEDICAL HISTORY : Chronic obstructive pulmonary disease. Diabetes mellitus type II.Hypertension. Stage 4 kidney disease . Congestive heart failure SURGICAL HISTORY : Umbilical hernia repair. Cholecystectomy. Appendectomy. hysterectomy ENCOUNTER: Subsequent ACUITY: 3 weeks PAIN SCORE: 0/10 LOCATION: Bilateral chest FINDINGS: Portable AP view of the chest demonstrates a normal-sized cardiac silhouette. Bilateral internal jugu lar central lines remain present. Multiple EKG lines overlie the patient. There is no pneumothorax. T here is a stable small right and minimal left basilar pleural-parenchymal opacity. CONCLUSION: Stable chest x-ray with small bibasilar opacities, right greater than left. These likely represent sm all pleural effusions with associated volume loss and/or consolidation. Christ Heller MD on June 20, 2017 at 11:01 Board Certified Radiologist. This report was verified electronically.
[2017-06-20] MEDS ORDERED: LORazepam 2 MG/ML VIAL IV PUSH PRN (11:45)
[2017-06-20] MEDS ORDERED: ALTEPLASE RECOMBINANT 2 MG VIAL INTRACATH ONE (13:00)
[2017-06-20] MEDS: methylPREDNISolone SOD SUCC 40 MG/1 ML VIAL IV PUSH SCH ×3 (13:08→23:47)
--- NOTE | 2017-06-20 15:29 | PD.CONS ---
Consult Service Palliative Care Consult Requested By Dr. Conte Primary Care Physician Camron Figueroa MD Reason for Consultation a. To assist with evaluation and management of symptoms including: Dyspnea, anxiety b. To assist medical decision maker(s) with: better understanding of current medical conditions; weighing benefits/burdens of medical treatment options; making medical treatment decisions. HPI History of Present Illness This is a 76-year-old female admitted to [facility] 05/30 with a complaint of dyspnea and decreased urine output. She has a past medical history of hypertension, diabetes mellitus, hyperlipidemia, ischemic heart disease, CKD stage IV and COPD. She had followed with Dr. Lee for progressively worsening kidney disease as an outpatient. She had contacted her primary care provider's office regarding the reduced urine output and was advised to increase her fluid and add Gatorade. On 07/02 she had gone unresponsive with increasing dyspnea requiring a HALICAT and was intubated. Personal Care Aide service was consulted for management. ABG upon intubation showed pH of 6.89, PCO2 63, PaO2 211, bicarbonate 12, base excess -19, oxygen saturation 96% on PRVC mode rate 14, TV 500, PEEP 5, FiO2 60%. She was extubated 06/05 and intermittently required BiPAP which caused her great anxiety necessitating the use of Precedex intermittently. She was reintubated 06/12 for acute hypoxemic respiratory failure, failing BiPAP and extubated 06/16. * Cardiology: 2-D echocardiogram done 06/01 shows a poorly visualized left ventricle with an ejection fraction of 50-55% and possible lipomatous hypertrophy of the intra-atrial septum and no significant valvular dysfunction. She also developed atrial fibrillation with rapid ventricular response after dialysis on 06/01, requiring an amiodarone drip. * Gastroenterology: Consulted due to melanotic stools and anemia she underwent colonoscopy showing ulcers in the cecum, ascending and transverse colon as well as sigmoid diverticulosis and external hemorrhoids. Hepatitis AB and C serology as well as clostridium difficile culture was negative. * Nephrology: Patient has advanced stage IV CKD, approaching stage V, hemodialysis initiated. Will need AV fistula. Requiring Epogen for anemia. On BiPAP with stable oxygenation on initial assessment. Daughter Dorothea and friend, Alcides at bedside. Discussed with Dr. Schultz at bedside. Blood gas drawn showing improved oxygenation and changed to 3 L nasal cannula with PRN BiPAP. This is an obese elderly patient sitting up in bed in no acute distress. Function/Cognitive Trajectory Per my discussion with the daughter, she has had poor control of her diabetes and has become more sedentary. She is not compliant with medical treatment. The patient states that she is normally able to run her own life but on closer questioning, she sleeps in a recliner as she is unable to lie flat and has done so for some time. Over the prior week she had developed significant dependent edema, inability to urinate, lethargy, fatigue and was unable to leave the house or maintain her ADLs. She is insistent at this time that she will be able to just go home and do things as she had been and is resistant to short- term rehabilitation at this time. Her daughter is continuing to discuss this with her as she feels her function has declined and she would be at significant risk of falling due to her weakness and need for oxygen. Review of Systems Constitutional: COMPLAINS OF: Fatigue, Weight gain Respiratory: COMPLAINS OF: Wheezing Cardiovascular: COMPLAINS OF: Lower Extremity Edema Neurologic: COMPLAINS OF: Poor Balance Psychiatric: COMPLAINS OF: Anxiety Past Family Social History Coded Allergies: Sulfa (Sulfonamide Antibiotics) (Verified Allergy, Mild, 05/30/17) Past Medical History Hypertension Hyperlipidemia Diabetes Chronic Kidney disease stage IV now on hemodialysis Chronic obstructive pulmonary disease Shingles Anemia of chronic disease Anxiety . Past Surgical History Cholecystectomy Hysterectomy Colonoscopy Reported Medications Reported Meds & Active Scripts Active Reported Lantus Inj (Insulin Glargine) 1,000 Unit/10 Ml Vial 75 Units SQ HS Xanax (Alprazolam) 0.25 Mg Tab 0.25 Mg PO Q8H PRN Enalapril (Enalapril Maleate) 20 Mg Tab 20 Mg PO BID Lasix (Furosemide) 20 Mg Tab 20 Mg PO DAILY Lasix (Furosemide) 20 Mg Tab 20 Mg PO DAILY Lipitor (Atorvastatin Calcium) 80 Mg Tab 80 Mg PO HS Current Medications Medications (Trade) Dose Ordered Sig/[place] Route Start Time Stop Time Status Last Admin (NS Flush) 2 ml UNSCH PRN IV FLUSH 05/30/17 21:45 06/16/17 19:49 (NS Flush) 2 ml BID IV FLUSH 05/31/17 09:00 06/20/17 08:57 (Narcan Inj) 0.4 mg UNSCH PRN IV PUSH 05/30/17 21:45 (Lipitor) 80 mg HS PO 05/31/17 21:00 Future hold 06/19/17 23:20 (Zofran Inj) 4 mg Q6HR PRN IV PUSH 05/31/17 13:00 06/05/17 20:18 Sodium Chloride 1,000 ml @ 0 mls/hr Q0M PRN OTHER 06/01/17 09:07 06/05/17 11:17 (Heparin Inj) 8,000 units UNSCH PRN IV FLUSH 06/01/17 09:15 Sodium Chloride 1,000 ml @ 200 mls/hr Q5H PRN IV 06/01/17 09:07 06/16/17 14:53 Sodium Chloride 1,000 ml @ 0 mls/hr Q0M PRN OTHER 06/01/17 09:07 (Mannitol Inj) 12.5 gm UNSCH PRN IV 06/01/17 09:15 06/02/17 08:06 Albumin Human 100 ml @ 60 mls/hr UNSCH PRN IV 06/01/17 09:15 06/14/17 09:49 (NS Flush) 5 ml UNSCH PRN IV FLUSH 06/01/17 09:15 06/04/17 11:09 (Heparin Inj) UNSCH PRN .XX 06/01/17 09:15 06/16/17 14:53 (Gentamicin (Dialysis) Inj) 20 mg UNSCH PRN OTHER 06/01/17 09:15 06/14/17 07:49 (Zofran Inj) 4 mg UNSCH PRN IV PUSH 06/01/17 09:15 (Benadryl) 25 mg UNSCH PRN PO 06/01/17 09:15 (Nitrostat Sl) 0.4 mg UNSCH PRN SL 06/01/17 09:15 (Catapres) 0.1 mg UNSCH PRN PO 06/01/17 09:15 06/17/17 19:57 (Gelfoam 12 Mm/7 Mm Top) 1 foam UNSCH PRN TOP 06/01/17 09:15 (NS Flush) UNSCH PRN IV FLUSH 06/01/17 09:30 Miscellaneous Information 1 Q361D XX 06/01/17 18:30 06/01/17 18:30 (Chlorhexidine 2% Cloth) Taper DAILY@04 TOP 06/02/17 04:00 05/29/18 03:59 06/20/17 03:36 (Chlorhexidine 2% Cloth) 3 pack UNSCH PRN TOP 06/01/17 18:30 (Senokot) 17.2 mg Q12H PRN PO 06/01/17 18:30 (Dulcolax Supp) 10 mg DAILY PRN RECTAL 06/01/17 18:30 (Xanax) 0.5 mg Q8H PRN PO 06/06/17 13:00 06/20/17 06:53 (Epogen Inj) 10,000 units UNSCH PRN IV PUSH 06/07/17 21:30 06/16/17 14:52 (Nephrocaps) 1 cap DAILY PO 06/08/17 09:00 06/20/17 08:56 (Phoslo) 1,334 mg TID PO 06/08/17 09:00 06/20/17 13:08 (Ferrous Sulfate) 325 mg DAILY PO 06/09/17 09:00 06/20/17 08:56 (Imodium Liq) 2 mg Q4H PRN PO 06/10/17 13:00 06/11/17 08:25 (Brethine Inj) 1 mg UNSCH PRN SQ 06/12/17 08:00 (NS Flush) DAILY IV FLUSH 06/12/17 09:00 06/20/17 08:57 (NS Flush) UNSCH PRN IV FLUSH 06/12/17 08:45 (D50w (Vial) Inj) 50 ml UNSCH PRN IV PUSH 06/12/17 09:00 (Glucagon Inj) 1 mg UNSCH PRN OTHER 06/12/17 09:00 (Glycerin Adult Supp) 2 gm BID PRN RECTAL 06/13/17 07:30 (Symbicort 160-4.5 Inh) 2 puff Q12HR INH 06/17/17 09:00 06/20/17 08:55 (Tylenol 650 Mg/ 20 ml Liq) 650 mg Q6H PRN PO 06/17/17 06:30 ([place] 5-325 Mg) 1 tab Q6H PRN PO 06/17/17 06:30 (Morphine Inj) 2 mg Q4H PRN IV PUSH 06/17/17 06:30 (NovoLIN R SUPPLEMENTAL SCALE) 1 ACHS AND 3AM SQ 06/18/17 08:00 06/20/17 09:19 (Levemir Inj) 25 units Q12HR SQ 06/18/17 09:00 06/20/17 08:56 Lactated Ringer's 1,000 ml @ 30 mls/hr Q24H PRN IV 06/18/17 18:45 06/21/17 18:44 Sodium Chloride 500 ml @ 30 mls/hr [id number] PRN IV 06/18/17 18:45 06/21/17 18:44 (Lopressor) 25 mg [employer] PRN PO 06/18/17 18:45 06/21/17 18:44 (Betadine 5% Antisepsis Kit) 1 applic [employer] PRN EACH NARE 06/18/17 18:45 06/21/17 18:44 (NovoLIN R INJ) See Protocol Table ... [employer] PRN SQ 06/18/17 18:45 06/21/17 18:44 (Duoneb Neb) 1 ampule Q2HR NEB PRN NEB 06/19/17 13:15 06/20/17 10:49 (Protonix) 40 mg Q12HR PO 06/19/17 21:00 06/20/17 08:55 (Cardizem Cd) 180 mg DAILY PO 06/19/17 14:15 06/20/17 08:55 Lactated Ringer's 1,000 ml @ 30 mls/hr Q24H PRN IV 06/19/17 16:00 06/22/17 15:59 Sodium Chloride 500 ml @ 30 mls/hr [id number] PRN IV 06/19/17 16:00 06/22/17 15:59 (Lopressor) 25 mg [employer] PRN PO 06/19/17 16:00 06/22/17 15:59 (Betadine 5% Antisepsis Kit) 1 applic [employer] PRN EACH NARE 06/19/17 16:00 06/22/17 15:59 (Chlorhexidine 2% Cloth) 3 pack [employer] PRN TOPICAL 06/19/17 16:00 06/22/17 15:59 (NovoLIN R INJ) See Protocol Table ... [employer] PRN SQ 06/19/17 16:00 06/22/17 15:59 Cefazolin Sodium/ Dextrose 50 ml @ 100 mls/hr [employer] IV 06/19/17 16:30 06/22/17 16:29 06/20/17 09:16 Vancomycin HCl 1000 mg/Sodium Chloride 250 ml @ 250 mls/hr [employer] IV 06/19/17 16:30 06/22/17 16:29 06/20/17 09:16 (Duoneb Neb) 1 ampule Q4HR NEB NEB 06/20/17 12:00 06/20/17 12:29 (SoluMEDROL INJ) 60 mg Q6H IV PUSH 06/20/17 11:00 06/20/17 13:08 (Ativan Inj) 0.5 mg Q4H PRN IV PUSH 06/20/17 11:45 Family History Reviewed is significant for father from kidney disease Substance Use Tobacco: Has smoked one half pack of cigarettes per day for close to 60 years. Alcohol: Social alcohol use. Prescription med abuse: No history of prescription drug abuse. Illicits: No history of illicit drug abuse . 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 She has been twice, in the first and was then during her second marriage. She moved to [place] in 1993 and lives in her own home since that time. She has 1 daughter, Dorothea Gonzalez who lives in [place]. . Spiritual/Cultural Factors She is a non-practicing Jainism who would accept water pollution specialist visits. Health Care Surrogate: Copy in medical record Health Care Surrogate(s): Dorothea Gonzalez, patient's daughter Physical Exam Vital Signs Date Time Temp Pulse Resp B/P (MAP) Pulse Ox O2 Delivery O2 Flow Rate FiO2 06/20/17 10:51 98 50 06/20/17 08:16 91 Nasal Cannula 3.00 06/20/17 07:01 80 22 158/83 (108) 95 06/20/17 07:00 97 Bi-Pap 40 06/20/17 06:15 90 Nasal Cannula 3.00 Humidified 06/20/17 06:01 82 31 164/53 (90) 92 06/20/17 06:00 78 06/20/17 05:01 82 22 174/72 (106) 95 06/20/17 05:00 84 06/20/17 04:25 94 Nasal Cannula 2.00 Humidified 06/20/17 04:01 98.1 78 22 157/64 (95) 95 06/20/17 04:00 84 06/20/17 03:01 78 22 155/58 (90) 96 06/20/17 02:00 80 06/20/17 02:00 80 23 149/57 (87) 97 06/20/17 01:00 84 23 126/56 (79) 92 06/20/17 00:08 93 Nasal Cannula 2.00 Humidified 06/20/17 00:08 97.9 84 32 146/56 (86) 93 06/20/17 00:00 90 06/19/17 23:30 92 29 151/74 (99) 92 06/19/17 23:15 78 33 140/62 (88) 92 06/19/17 23:00 80 30 135/72 (93) 92 06/19/17 22:45 74 31 137/55 (82) 94 06/19/17 22:30 84 25 136/51 (79) 94 06/19/17 22:15 78 20 73/60 (64) 96 06/19/17 22:00 84 06/19/17 22:00 84 06/19/17 22:00 84 19 107/51 (69) 96 06/19/17 21:45 90 22 116/54 (74) 94 06/19/17 21:30 94 28 121/57 (78) 93 06/19/17 21:15 96 24 122/59 (80) 94 06/19/17 21:00 94 31 125/63 (83) 95 06/19/17 20:47 94 Nasal Cannula 1.00 06/19/17 20:45 90 25 161/77 (105) 94 06/19/17 20:30 92 29 192/74 (113) 93 06/19/17 20:26 86 28 178/99 (125) 97 06/19/17 20:00 98.0 84 25 176/74 (108) 96 06/19/17 20:00 84 06/19/17 19:00 94 Nasal Cannula 1.00 Humidified 06/19/17 19:00 82 26 173/74 (107) 94 06/19/17 18:00 80 06/19/17 18:00 80 24 163/73 (103) 96 06/19/17 17:00 80 26 181/72 (108) 97 06/19/17 16:48 95 Nasal Cannula 1.00 06/19/17 16:33 98.2 78 26 169/66 (100) 96 06/19/17 15:01 76 23 175/84 (114) 97 Exam CONSTITUTIONAL/GENERAL: This is an obese, elderly patient, in no apparent distress. TUBES/LINES/DRAINS: Right PICC SKIN: No jaundice, rashes, or lesions. Ecchymoses on upper extremities. No wounds seen anteriorly. Skin temperature appropriate. Not diaphoretic. HEAD: Atraumatic. Normocephalic. EYES: Pupils equal and round and reactive. Extraocular motions intact. No scleral icterus. No injection or drainage. Fundi not examined. ENT: Hearing grossly normal. Nose without bleeding or purulent drainage. Throat without visible erythema, exudates, masses, or lesions. NECK: Trachea midline. Supple, nontender. No palpable thyroid enlargement or nodularity. CARDIOVASCULAR: Regular rate and rhythm without murmurs, gallops, or rubs. No JVD. Peripheral pulses symmetric. RESPIRATORY/CHEST: Symmetric, unlabored respirations. Clear to auscultation. Breath sounds equal bilaterally. No wheezes, rales, or rhonchi. GASTROINTESTINAL: Abdomen soft, non-tender, nondistended. No hepato-splenomegaly , or palpable masses. No guarding. Bowel sounds present. GENITOURINARY: Without palpable bladder distension. MUSCULOSKELETAL: Extremities without clubbing, cyanosis, or edema. Left arm appears swollen. No joint tenderness or effusion noted. No calf tenderness. No mottling or clubbing. NEUROLOGICAL: Awake and alert. Motor and sensory grossly within normal limits. Follows commands. Cognitively sharp. Moves all extremities. PSYCHIATRIC: Anxious, cooperative. . Diagnostic Tests Laboratory Laboratory Tests Test 06/18/17 06:00 06/19/17 05:10 06/20/17 05:40 06/20/17 10:33 White Blood Count 13.1 TH/MM3 (4.0-11.0) 15.1 TH/MM3 (4.0-11.0) 16.0 TH/MM3 (4.0-11.0) Red Blood Count 3.23 MIL/MM3 (4.00-5.30) 3.25 MIL/MM3 (4.00-5.30) 2.93 MIL/MM3 (4.00-5.30) Hemoglobin 8.7 GM/DL (11.6-15.3) 8.7 GM/DL (11.6-15.3) 8.2 GM/DL (11.6-15.3) Hematocrit 26.9 % (35.0-46.0) 27.0 % (35.0-46.0) 24.7 % (35.0-46.0) Mean Corpuscular Volume 83.3 FL (80.0-100.0) 83.2 FL (80.0-100.0) 84.3 FL (80.0-100.0) Mean Corpuscular Hemoglobin 27.0 PG (27.0-34.0) 26.9 PG (27.0-34.0) 27.9 PG (27.0-34.0) Mean Corpuscular Hemoglobin Concent 32.4 % (32.0-36.0) 32.3 % (32.0-36.0) 33.0 % (32.0-36.0) Red Cell Distribution Width 18.5 % (11.6-17.2) 18.7 % (11.6-17.2) 20.5 % (11.6-17.2) Platelet Count 115 TH/MM3 (150-450) 128 TH/MM3 (150-450) 116 TH/MM3 (150-450) Mean Platelet Volume 9.2 FL (7.0-11.0) 9.1 FL (7.0-11.0) 8.5 FL (7.0-11.0) Neutrophils (%) (Auto) 92.8 % (16.0-70.0) 93.4 % (16.0-70.0) 93.9 % (16.0-70.0) Lymphocytes (%) (Auto) 3.2 % (9.0-44.0) 2.6 % (9.0-44.0) 2.1 % (9.0-44.0) Monocytes (%) (Auto) 3.7 % (0.0-8.0) 3.7 % (0.0-8.0) 3.6 % (0.0-8.0) Eosinophils (%) (Auto) 0.0 % (0.0-4.0) 0.1 % (0.0-4.0) 0.3 % (0.0-4.0) Basophils (%) (Auto) 0.3 % (0.0-2.0) 0.2 % (0.0-2.0) 0.1 % (0.0-2.0) Neutrophils # (Auto) 12.2 TH/MM3 (1.8-7.7) 14.1 TH/MM3 (1.8-7.7) 15.1 TH/MM3 (1.8-7.7) Lymphocytes # (Auto) 0.4 TH/MM3 (1.0-4.8) 0.4 TH/MM3 (1.0-4.8) 0.3 TH/MM3 (1.0-4.8) Monocytes # (Auto) 0.5 TH/MM3 (0-0.9) 0.6 TH/MM3 (0-0.9) 0.6 TH/MM3 (0-0.9) Eosinophils # (Auto) 0.0 TH/MM3 (0-0.4) 0.0 TH/MM3 (0-0.4) 0.0 TH/MM3 (0-0.4) Basophils # (Auto) 0.0 TH/MM3 (0-0.2) 0.0 TH/MM3 (0-0.2) 0.0 TH/MM3 (0-0.2) CBC Comment DIFF FINAL DIFF FINAL DIFF FINAL Differential Comment Activated Partial Thromboplast Time 22.4 SEC (24.3-30.1) 22.6 SEC (24.3-30.1) Blood Urea Nitrogen 121 MG/DL (7-18) 138 MG/DL (7-18) 89 MG/DL (7-18) Creatinine 7.00 MG/DL (0.50-1.00) 8.10 MG/DL (0.50-1.00) 5.70 MG/DL (0.50-1.00) Random Glucose 169 MG/DL (74-106) 96 MG/DL (74-106) 191 MG/DL (74-106) Albumin 3.3 GM/DL (3.4-5.0) 3.3 GM/DL (3.4-5.0) Calcium Level 8.2 MG/DL (8.5-10.1) 8.0 MG/DL (8.5-10.1) 8.7 MG/DL (8.5-10.1) Phosphorus Level 8.9 MG/DL (2.5-4.9) 10.3 MG/DL (2.5-4.9) Sodium Level 136 MEQ/L (136-145) 140 MEQ/L (136-145) 138 MEQ/L (136-145) Potassium Level 5.1 MEQ/L (3.5-5.1) 4.7 MEQ/L (3.5-5.1) 4.2 MEQ/L (3.5-5.1) Chloride Level 97 MEQ/L (98-107) 97 MEQ/L (98-107) 96 MEQ/L (98-107) Carbon Dioxide Level 23.8 MEQ/L (21.0-32.0) 23.6 MEQ/L (21.0-32.0) 24.4 MEQ/L (21.0-32.0) Anion Gap 15 MEQ/L (5-15) 19 MEQ/L (5-15) 18 MEQ/L (5-15) Estimat Glomerular Filtration Rate 6 ML/MIN (>89) 5 ML/MIN (>89) 7 ML/MIN (>89) Total Protein 6.3 GM/DL (6.4-8.2) Magnesium Level 2.7 MG/DL (1.5-2.5) 2.6 MG/DL (1.5-2.5) Alkaline Phosphatase 47 U/L (45-117) Aspartate Amino Transf (AST/SGOT) 14 U/L (15-37) Alanine Aminotransferase (ALT/SGPT) 60 U/L (10-53) Total Bilirubin 0.6 MG/DL (0.2-1.0) Blood Gas Puncture Site RT RADIAL Blood Gas Patient Temperature 37.0 Blood Gas HCO3 25 mmol/L (22-26) Blood Gas Base Excess -0.4 mmol/L (-2-2) Blood Gas Oxygen Saturation 85 % (90-100) Arterial Blood pH 7.34 (7.380-7.420) Arterial Blood Partial Pressure CO2 47 mmHg (38-42) Arterial Blood Partial Pressure O2 60 mmHg (61-120) Arterial Blood Oxygen Content 9.8 Vol % (12.0-20.0) Arterial Blood Carboxyhemoglobin 1.6 % (0-4) Arterial Blood Methemoglobin 1.5 % (0-2) Blood Gas Hemoglobin 8.2 G/DL (12.0-16.0) Oxygen Delivery Device NASAL CANNULA Blood Gas Liter Flow 3 L/M Result Diagram: 06/20/17 0540 06/20/17 0540 Microbiology Microbiology Date/Time Source Procedure Growth Status 06/12/17 12:45 Blood Peripheral Aerobic Blood Culture - Final NO GROWTH IN 5 DAYS Complete 06/12/17 12:45 Blood Peripheral Anaerobic Blood Culture - Final NO GROWTH IN 5 DAYS Complete 06/13/17 18:31 Stool Stool Stool Occult Blood (MELISSA) - Final HEMOCCULT POSITIVE Complete 06/15/17 06:50 Nasal Aspirate Influenza Types A,B Antigen (MELISSA) - Final NEGATIVE FOR FLU A AND B ANTIGEN.... Complete 06/11/17 20:33 Urine Catheterized Urine Urine Culture - Final Lacey Glabrata Lacey Albicans Complete . Imaging Last Impressions Chest X-Ray 06/20/17 0000 Signed Impressions: Service Date/Time: Tuesday, June 20, 2017 10:53 - CONCLUSION: Stable chest x-ray with small bibasilar opacities, right greater than left. These likely represent small pleural effusions with associated volume loss and/or consolidation. Christ Heller MD Renal Ultrasound 05/31/17 0000 Signed Impressions: Service Date/Time: Wednesday, May 31, 2017 08:54 - CONCLUSION: 1. Abnormal appearance to the left kidney with diminutive size and poor delineation of the parenchymal architecture. 2. No gross abnormality seen in the right kidney. Aramis Scott MD Procedures 06/01-endotracheal intubation. 06/01-hemodialysis catheter placement in the right IJ vein 06/12-endotracheal intubation 06/12-left IJ central venous catheter placement 06/19-colonoscopy showing ulcers in the cecum, ascending colon, transverse colon and sigmoid diverticulosis. Biopsies taken. Patient/Family Conference Present at Family Conference: Patient's daughter, Dorothea and best friend Shakeel, were at bedside for the family conference. The daughter encourage the mother to consider the decisions before her carefully, as the daughter would have to make further decisions based on this conversation. We discussed intubation, possible tracheostomy, PEG tube, CPR, shock and cardiopulmonary resuscitative drugs. Options were explained and all questions answered. At this time the patient wishes to remain a full code while she considers the ramifications of these decisions. Living will was left with the patient to discuss with the daughter to clarify her wishes. Palliative care contact information was provided for further questions. . Family Conference Time (mins): 90 Family Conference Location: Bedside Issues Discussed: * Palliative care role, purpose, approach * Additional medical, psychosocial, and spiritual history * Patients general health, functional status, and cognitive changes in the months leading up to the current hospitalization * Patient/family understanding of the current medical problems * Patient/family understanding of prognosis * Patients goals of care as best understood from advance directives and/or conversations and/or values * Current medical treatment options and benefits/burdens of those options * Likely scenarios comparing ongoing aggressive care with a transition to comfort measures only * Questions answered to the best of my ability * Palliative care contact information provided Assessment and Plan Disease Oriented Problem List: (1) Acute renal failure (2) Metabolic acidosis (3) Diarrhea (4) Anemia (5) Anxiety (6) Paroxysmal atrial fibrillation (7) Acute and chronic respiratory failure (8) DM2 (diabetes mellitus, type 2) Symptom Scale: (1) Dyspnea and respiratory abnormalities 0-10 Scale: Unable to quantify (2) Anxiety 0-10 Scale: Unable to quantify Pertinent Non-Medical Issues Psychosocial:She was born in [facility] and 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 She has been twice, in the first and was then during her second marriage. She moved to [place] in 1993 and lives in her own home since that time. She has 1 daughter, Dorothea Gonzalez who lives in [place]. Spiritual: She is a non-practicing Jainism who would accept water pollution specialist visits. Legal: She is currently able to make decisions for herself, however has designated her daughter Dorothea as her healthcare surrogate. Ethical issues impacting care: None noted at this time . Important Contacts Daughter-Dorothea Gonzalez Prognosis Her prognosis is guarded. She has been intubated twice and today required BiPAP to prevent a third intubation. She has smoked for approximately 60 years is morbidly obese and sedentary. She is now developed end-stage renal disease and is on dialysis. She has uncontrolled diabetes mellitus and anemia. She was found to have multiple ulcers on colonoscopy and is now on Procrit for combination anemia of chronic disease and GI blood loss. Given her debility from extended hospitalization and baseline decline she is at significant risk for falls, poor self-care and recurrent hospitalizations. . Code Status: Full Code Plan PLAN: Legal decision maker: She is currently able to make her own decisions but has designated her daughter, Dorothea Gonzalez as the healthcare surrogate decision- maker. Goals: Remain aggressive. FULL CODE. CODE STATUS: SYMPTOMS: * Dyspnea: She remains on oxygen at this time. She required BiPAP ventilation after an attempt to place a permanent dialysis access today. She became too dyspneic to continue and procedure was canceled. She states that she is not going to smoke anymore and this was encouraged. She is currently receiving duo nebs, Solu-Medrol, Symbicort, Ativan, Ancef and vancomycin. She remains at risk for continued respiratory compromise. * Anxiety: She has a chronic baseline anxiety for which she took Xanax at home. This will be a significant restriction to her resolution to quit smoking. Would recommend initiating a baseline anxiolytic with a benzodiazepine for breakthrough anxiety as needed. SUMMARY: This is a 76-year-old obese female with recent respiratory failure and recurrent intubations complicated by COPD and worsening end-stage renal disease now on hemodialysis. She lives by herself and has become more sedentary as her health decline. She is at significant risk of fall, injury and poor self-care due to her debilitation from extended hospitalization. She will likely need rehabilitation, however she is resistant to that. She has designated healthcare surrogate at this time wishes to remain a full code while she further considers her options. Palliative care will continue to follow for medical updates and support in decision-making. Palliative care will continue to follow the patient during hospital course as condition evolves, to assist patient/decision-maker with understanding of their medical conditions, weighing benefits/burdens of treatment options, for clarification of goals of treatment. Additionally will assist with any symptoms of palliative concern. . Thank you for the opportunity to participate in the care of Ms. Wilkinson. Attestation To help prompt me to consider important information that might be impacting today's encounter and assessment, information from prior notes written by myself or my colleagues may have been "brought forward" into today's note. My signature on this note, however, is an attestation that I personally performed the exam, history, and/or decision-making noted today, and, unless otherwise indicated, the interactions with patient, family, and staff as well as the review of records all occurred today. I also attest that the listed assessment and stated plan reflect my best clinical judgment today based on the combination of historical information, prior notes, and today's exam/ interactions. When time spent is documented, it refers only to time spent today by the signer, or if indicated, combined time spent today by collaborating physician/nurse practitioner. . Sangeeta Johnson Jun 20, 2017 3:29 pm
[2017-06-20 16:43] LABS: BLOOD GAS BASE EXCESS -0.1 mmol/L (-2-2); BLOOD GAS CARBOXYHEMOGLOBIN 1.7 % (0-4); BLOOD GAS HCO3 25 mmol/L (22-26); BLOOD GAS METHEMOGLOBIN 1.3 % (0-2); BLOOD GAS O2 HGB SATURATION 95 % (90-100); BLOOD GAS OXYGEN CONTENT 10.6 Vol % (12.0-20.0); BLOOD GAS PCO2 44 mmHg (38-42); BLOOD GAS PO2 100 mmHg (61-120); BLOOD GAS TOTAL HGB 7.8 G/DL (12.0-16.0); CRITICAL VALUE NO; OXYGEN DEVICE BIPAP
[2017-06-20 16:44] LABS: DRAW SITE RT BRACHIAL; FIO2 40 %; NUMBER OF ARTERIAL PUNCTURES 2; STAT NO; ULNAR PULSE PRESENT
--- NOTE | 2017-06-20 16:53 | HHI.CCPN ---
Subjective Remarks/Hospital Course The patient is a 76-year-old female with past medical history of hypertension, hyperlipidemia, diabetes mellitus, COPD, chronic kidney disease, who was admitted to [facility] yesterday under hospitalist service for acute renal failure and COPD exacerbation. On arrival the patient had BUN of 99 with a creatinine of 14 and potassium level 4.8. Chest x-ray on admission showed no evidence of any acute cardiopulmonary disease. She was seen by Dr. Lee from nephrology service and placed on bicarb drip. A renal ultrasound was obtained which showed no evidence of hydronephrosis. Her renal function continued to worsen. A Halicat was called this morning for respiratory distress. She was subsequently transferred to ICU and was intubated by Dr. Davila, the ED physician. ABG post-intubation showed severe hypercapnic and metabolic acidosis with a pH of 6.89, CO2 63, bicarb 12, pAO2 211, saturation 96 % on PRVC mode rate of 14, tidal volume 500. I time one, PEEP five and FIO2 60% . Chest x-ray post-intubation showed ET tube above the brayan and bilateral interstitial pattern. Her laboratory data this morning is significant for hyperkalemia with potassium level 6.1, BUN of 118, creatinine 14.0. When seen the patient is intubated and sedated with Diprivan drip. Her current blood pressure is 179/90 with a pulse of 117. 06/02 Patient s/p HD 06/01 with 2L fluid removal, 2 L removed today as well. . Patient remains intubated on low dose Diprivan but awake, alert and follows commands. Afebrile. She went into Afib with RVR overnight and started on Amio drip. 06/03 Converted to sinus with PAC's on amiodarone. Remains on mechanical ventilation. UOP 50 ml over last 24 hours. Following commands on sedation, will do SBT. Plan for HD today per discussion with [facility]. 06/04 CPAP trial terminated yesterday after patient became tachycardic, anxious. HD was not performed yesterday but plan for today per nephrology. Will use Precedex to facilitate comfort with CPAP. UOP 150. 06/05: Patient had hemodialysis today with 3 L fluid removed. Tolerating CPAP well, awake alert following commands communicating by writing. Chest x-ray remains unchanged 06/06: Overnight placed on Precedex for agitation. Also required BIPAP for hypercapnea. Weaned off Precedex by afternoon today. Currently on Xanax when necessary. At this time on BiPAP. Patient is pleasant and communicative breathing comfortably. Bilateral wheezes on exam. I have started patient on IV Solu-Medrol, Symbicort and Spiriva Reconsult 06/12: Reconsulted secondary to acute hypoxemic respiratory failure. Currently on BiPAP with significant acidosis therefore intubated. Central line placed in the left IJ. 06/13: Afebrile. Currently off phenylephrine drip. Remains intubated. Currently in sinus bradycardia. White blood cell count decreased to 16,000. Will attempt PSV trial today. 06/14: Resting comfortably in bed. Tolerated PSV trial still 8 PM last night. During tube feeds. Positive BM. Following simple commands on minimal sedation. 06/15: Return to normal sinus rhythm. Diltiazem Initiated. Will Attempt PSV Trial Again Today. Positive BMs. We'll Check C. difficile. 06/16: No acute issues overnight. Hemoglobin 7. Will transfuse 1 unit during hemodialysis. Attempt spontaneous breathing trials postdialysis with attempt extubated. 06/17: Extubated yesterday without complication of hemodialysis. -3 L. Positive BM 3. Current 4 L nasal cannula. Less lethargic as AM. Subjective 06/18: Afebrile. Tolerating diet yesterday overnight. Currently in sinus bradycardia. Positive BM. On nasal cannula and feels better than yesterday 06/20 Reconsult for resp distress. Patient was found with labored breathing she was subsequently place on BIPAP 05/11 with 40% FIO2. Afebrile. Awake and alert , CXR showed bibasilar opacities, stable chest. Objective Vital Signs Date Time Temp Pulse Resp B/P (MAP) Pulse Ox O2 Delivery O2 Flow Rate FiO2 06/20/17 15:56 99 40 06/20/17 08:16 Nasal Cannula 3.00 06/20/17 07:01 80 22 158/83 (108) 06/20/17 04:01 98.1 Intake and Output 06/20/17 06/20/17 06/21/17 08:00 16:00 00:00 Intake Total 240 ml Output Total 2500 ml Balance -2260 ml Result Diagram: 06/20/17 0540 06/20/17 0540 Other Results Laboratory Tests Test 06/20/17 05:40 06/20/17 10:33 White Blood Count 16.0 TH/MM3 Red Blood Count 2.93 MIL/MM3 Hemoglobin 8.2 GM/DL Hematocrit 24.7 % Mean Corpuscular Volume 84.3 FL Mean Corpuscular Hemoglobin 27.9 PG Mean Corpuscular Hemoglobin Concent 33.0 % Red Cell Distribution Width 20.5 % Platelet Count 116 TH/MM3 Mean Platelet Volume 8.5 FL Neutrophils (%) (Auto) 93.9 % Lymphocytes (%) (Auto) 2.1 % Monocytes (%) (Auto) 3.6 % Eosinophils (%) (Auto) 0.3 % Basophils (%) (Auto) 0.1 % Neutrophils # (Auto) 15.1 TH/MM3 Lymphocytes # (Auto) 0.3 TH/MM3 Monocytes # (Auto) 0.6 TH/MM3 Eosinophils # (Auto) 0.0 TH/MM3 Basophils # (Auto) 0.0 TH/MM3 CBC Comment DIFF FINAL Differential Comment Blood Urea Nitrogen 89 MG/DL Creatinine 5.70 MG/DL Random Glucose 191 MG/DL Calcium Level 8.7 MG/DL Magnesium Level 2.6 MG/DL Sodium Level 138 MEQ/L Potassium Level 4.2 MEQ/L Chloride Level 96 MEQ/L Carbon Dioxide Level 24.4 MEQ/L Anion Gap 18 MEQ/L Estimat Glomerular Filtration Rate 7 ML/MIN Blood Gas Puncture Site RT RADIAL Blood Gas Patient Temperature 37.0 Blood Gas HCO3 25 mmol/L Blood Gas Base Excess -0.4 mmol/L Blood Gas Oxygen Saturation 85 % Arterial Blood pH 7.34 Arterial Blood Partial Pressure CO2 47 mmHg Arterial Blood Partial Pressure O2 60 mmHg Arterial Blood Oxygen Content 9.8 Vol % Arterial Blood Carboxyhemoglobin 1.6 % Arterial Blood Methemoglobin 1.5 % Blood Gas Hemoglobin 8.2 G/DL Oxygen Delivery Device NASAL CANNULA Blood Gas Liter Flow 3 L/M Imaging Last Impressions Chest X-Ray 06/20/17 0000 Signed Impressions: Service Date/Time: Tuesday, June 20, 2017 10:53 - CONCLUSION: Stable chest x-ray with small bibasilar opacities, right greater than left. These likely represent small pleural effusions with associated volume loss and/or consolidation. Christ Heller MD Renal Ultrasound 05/31/17 0000 Signed Impressions: Service Date/Time: Wednesday, May 31, 2017 08:54 - CONCLUSION: 1. Abnormal appearance to the left kidney with diminutive size and poor delineation of the parenchymal architecture. 2. No gross abnormality seen in the right kidney. Aramis Scott MD Objective Remarks GENERAL: Patient is 76 yo female, resting in bed comfortably on BIPAP 10/5 with 40% FIO2. SKIN: Warm and dry. No rash. Well-perfused. HEAD: Normocephalic. EYES: No scleral icterus. No injection or drainage. NECK: Supple, trachea midline. No JVD or lymphadenopathy. Right IJ hemodialysis catheter left IJ CVL clean dry and intact CARDIOVASCULAR: RRR. S1, S2. No S4. Without murmurs, clicks, rubs RESPIRATORY: Coarse bibasilar breath sounds. Bilateral inspiratory and expiratory wheezing appreciated. GASTROINTESTINAL: Abdomen soft, non-tender, protuberant. Hypoactive bowel sounds are appreciated MUSCULOSKELETAL: 1+ edema all extremities, upper and lower. NEURO: Awake and oriented to person and place. Moves all 4 extremities spontaneously. Date of Insertion: Jun 12, 2017 Line: Central Venous Catheter Side: Left Location: Internal, Jugular A/P Assessment and Plan Neuro/Psych: Anxiety Alprazolam 0.5 mg by mouth every 4 hours as needed for anxiety/home medication for anxiety Acetaminophen 650 mg liquid every 6 hours when necessary for fever Pulm: Acute hypercapnic respiratory failure Acute COPD exacerbation Tobacco abuse Extubated 06/05/17. Reintubated 06/12. Extubated 06/16. Nasal cannula to maintain saturations greater than equal to 90% Incentive spirometry while awake Albuterol/ipratropium aerosols every 4 hours with albuterol aerosols every 2 hours. Dyspnea On budesonide/formoterol 160 g/4.5 g 2 puffs inhaled twice a day NIPPV PRN for resp distress. Check ABG A cappella/prep every 6 hours Methylprednisolone increased 60 mg Q6 Pulm following, Dr. Hammonds CXR today bibasilar opacities , stable chest. CV: Hypertension Hyperlipidemia Paroxysmal atrial fibrillation currently in sinus bradycardia Monitor HR and BP and maintain MAP>65 mmHg. Currently on diltiazem CD 180mg daily Echo showed 50-55% normal LV. Possible lipomatous hypertrophy of the inter- atrial septum Currently holding atorvastatin 80 mg by mouth daily at bedtime for dyslipidemia/ home medication in light of elevated liver function tests. Resume when clinically indicated Renal/FEN/: CKD Stage IV, on HD and probable ESRD with parts counterman dialysis. Diabetic nephropathy Hyperphosphatemia hyper-magnesium Monitor renal function, I&O's and avoid nephrotoxins. s/p HD 06/19 with removal 2.5L Renal ultrasound 05/31 revealed medical renal disease left kidney/atrophy. Right kidney within normal limits Dr. Lee following. Hemodialysis Monday/Monday and Monday On calcium acetate 1334 mg 3 times a day GI: On pantoprazole 40 mg IV twice a day 1800 ADA diet On docusate sodium/senna 1 tablet twice a day for bowel regimen will be held in light of diarrhea Loperamide 2 mg every 4 hours when necessary written for diarrhea if needed C diff negative. 2 06/19 s/p EGD, colonoscopy, gastrics, ulcer in cecum with visible vessel - clipped, diverticulosis, hemorrhoids. ID: Acute community acquired pneumonia Asymptomatic candiduria Off abx, monitor for signs of infections ( Fever, WBC) check sputum cx, UA with cx if indicated. 06/01 Sputum Kleb pneumonia, E.coli 06/11 Urine cx: C. Glabrata and Albicans Endo: Diabetes mellitus Detemir 25 units subcut q12 hours Continue with SSI- change to medium scale with accuchecks Heme: Leukocytosis Anemia consistent with anemia of chronic kidney disease Thrombocytopenia On iron sulfate 325 mg daily. Monitor CBC. Continue Epogen lorena 10,000 units with hemodialysis GI prophylaxis with pantoprazole 40 mill grams IV twice a day and DVT prophylaxis with SCDs Level 3 Felix Schultz MD Jun 20, 2017 16:53
[2017-06-20] MEDS ORDERED: GLUCAGON 1 MG/ML VIAL OTHER PRN (17:00)
[2017-06-20] MEDS ORDERED: INSULIN NovoLIN REGULAR SUPPLEMENTAL SCALE SQ SCH (17:00)
--- NOTE | 2017-06-20 17:42 | HHI.NPPN ---
Subjective History of Present Illness 76-year-old female with past medical history of hypertension, diabetes mellitus, hyperlipidemia, ischemic heart disease, chronic kidney disease, chronic obstructive pulmonary disease was admitted because of generalized weakness, decreased urine output. I he was called to see the patient for elevated BUN and creatinine. The patient is known to me from before. She has been following with me in the office and last time I saw her was on May 04 and at that time her creatinine was 2.2 with given the GFR of 19-20 she had advanced stage IV chronic kidney disease most likely because of diabetic nephropathy. Additional Remarks Patient is alert, now with BIPAP, has SOB, and in mild distress. Review of Systems General General Remarks Intubated and sedated. Objective Data Data Vital Signs Date Time Temp Pulse Resp B/P (MAP) Pulse Ox O2 Delivery O2 Flow Rate FiO2 06/20/17 17:00 76 21 158/82 (107) 98 06/20/17 17:00 76 06/20/17 16:00 74 06/20/17 16:00 74 18 170/86 (114) 100 06/20/17 15:56 99 40 06/20/17 15:00 66 18 160/72 (101) 100 06/20/17 15:00 66 06/20/17 14:00 70 18 140/53 (82) 99 06/20/17 14:00 70 06/20/17 13:00 72 18 160/63 (95) 100 06/20/17 13:00 72 06/20/17 12:00 72 06/20/17 12:00 72 18 154/77 (102) 100 06/20/17 11:34 74 06/20/17 11:34 74 22 169/70 (103) 100 06/20/17 10:51 98 50 06/20/17 09:00 78 06/20/17 09:00 78 20 157/69 (98) 94 06/20/17 08:16 91 Nasal Cannula 3.00 06/20/17 08:00 78 06/20/17 08:00 76 19 138/53 (81) 91 06/20/17 07:01 80 22 158/83 (108) 95 06/20/17 07:00 97 Bi-Pap 40 06/20/17 06:15 90 Nasal Cannula 3.00 Humidified 06/20/17 06:01 82 31 164/53 (90) 92 06/20/17 06:00 78 06/20/17 05:01 82 22 174/72 (106) 95 06/20/17 05:00 84 06/20/17 04:25 94 Nasal Cannula 2.00 Humidified 06/20/17 04:01 98.1 78 22 157/64 (95) 95 06/20/17 04:00 84 06/20/17 03:01 78 22 155/58 (90) 96 06/20/17 02:00 80 06/20/17 02:00 80 23 149/57 (87) 97 06/20/17 01:00 84 23 126/56 (79) 92 06/20/17 00:08 93 Nasal Cannula 2.00 Humidified 06/20/17 00:08 97.9 84 32 146/56 (86) 93 06/20/17 00:00 90 06/19/17 23:30 92 29 151/74 (99) 92 06/19/17 23:15 78 33 140/62 (88) 92 06/19/17 23:00 80 30 135/72 (93) 92 06/19/17 22:45 74 31 137/55 (82) 94 06/19/17 22:30 84 25 136/51 (79) 94 06/19/17 22:15 78 20 73/60 (64) 96 06/19/17 22:00 84 06/19/17 22:00 84 06/19/17 22:00 84 19 107/51 (69) 96 06/19/17 21:45 90 22 116/54 (74) 94 06/19/17 21:30 94 28 121/57 (78) 93 06/19/17 21:15 96 24 122/59 (80) 94 06/19/17 21:00 94 31 125/63 (83) 95 06/19/17 20:47 94 Nasal Cannula 1.00 06/19/17 20:45 90 25 161/77 (105) 94 06/19/17 20:30 92 29 192/74 (113) 93 06/19/17 20:26 86 28 178/99 (125) 97 06/19/17 20:00 98.0 84 25 176/74 (108) 96 06/19/17 20:00 84 06/19/17 19:00 94 Nasal Cannula 1.00 Humidified 06/19/17 19:00 82 26 173/74 (107) 94 06/19/17 18:00 80 06/19/17 18:00 80 24 163/73 (103) 96 -: 06/20/17 0540 06/20/17 0540 Physical Exam General Appearance: No Acute Distress, Comfortable Eyes Eye Exam: Pupils Equal Throat Throat Exam: Oral Mucosa [place] & Moist Neck Neck Exam: Neck Supple Pulmonary Resp Exam: Breath Sounds Equal, Rhonchi, Decreased Bases, Diminished Breath Sounds, Poor Inspiratory Effort Cardiology CV Exam: Regular, Normal Sinus Rhythm Gastrointestinal/Abdomen GI Exam: Soft, Non-Tender, Bowel Sounds Present, Distended Extremeties Extremities Exam: Trace Edema Neurologic Neuro Exam: Alert, Awake, Oriented Psychiatric Psych Exam: Appropriate Responses Assessment/Plan Assessment Summary: M[place]LE/Acute Renal Failure, Hypertension, CKD Stage IV Problem List: (1) Chronic kidney disease (CKD) ICD Codes: N18.9 - Chronic kidney disease, unspecified (2) Oliguria ICD Codes: R34 - Anuria and oliguria (3) Diarrhea ICD Codes: R19.7 - Diarrhea, unspecified (4) Metabolic acidosis ICD Codes: E87.2 - Acidosis Status: Acute (5) Uremia ICD Codes: N19 - Unspecified kidney failure Status: Acute (6) Acute renal failure ICD Codes: N17.9 - Acute kidney failure, unspecified Status: Acute Plan Patient has advance stage 4 chronic kidney disease, approach stage 5. Started on HD. Patient will need AVF, when stable and longterm HD. Patient has COPD with high CO2 and developing SOB off and on. Off vent doing better BP is stable. Hgb. is better now,on Epogen. HD done yesterday and 2.5 liters removed. Again has resp. failure, with BIPAP. Hold PermCath for now. Problem Qualifiers (1) Chronic kidney disease (CKD): Qualified Codes: N18.5 - Chronic kidney disease, stage 5 (2) Acute renal failure: Qualified Codes: N17.9 - Acute kidney failure, unspecified Lexy Lee MD Jun 20, 2017 17:42
--- NOTE | 2017-06-20 18:36 | HHI.PR ---
Subjective Remarks 76 YOWF with VDRF,Ac renal Failure,DM, Met acidosis No Fever Extubated, on NC Alert awake feels weak, mild sob Was obtunded during daytime and required BIPAP Objective Vital Signs Vital Signs Date Time Temp Pulse Resp B/P (MAP) Pulse Ox O2 Delivery O2 Flow Rate FiO2 06/20/17 17:00 76 21 158/82 (107) 98 06/20/17 17:00 76 06/20/17 16:00 74 06/20/17 16:00 74 18 170/86 (114) 100 06/20/17 15:56 99 40 06/20/17 15:00 66 18 160/72 (101) 100 06/20/17 15:00 66 06/20/17 14:00 70 18 140/53 (82) 99 06/20/17 14:00 70 06/20/17 13:00 72 18 160/63 (95) 100 06/20/17 13:00 72 06/20/17 12:00 72 06/20/17 12:00 72 18 154/77 (102) 100 06/20/17 11:34 74 06/20/17 11:34 74 22 169/70 (103) 100 06/20/17 10:51 98 50 06/20/17 09:00 78 06/20/17 09:00 78 20 157/69 (98) 94 06/20/17 08:16 91 Nasal Cannula 3.00 06/20/17 08:00 78 06/20/17 08:00 76 19 138/53 (81) 91 06/20/17 07:01 80 22 158/83 (108) 95 06/20/17 07:00 97 Bi-Pap 40 06/20/17 06:15 90 Nasal Cannula 3.00 Humidified 06/20/17 06:01 82 31 164/53 (90) 92 06/20/17 06:00 78 06/20/17 05:01 82 22 174/72 (106) 95 06/20/17 05:00 84 06/20/17 04:25 94 Nasal Cannula 2.00 Humidified 06/20/17 04:01 98.1 78 22 157/64 (95) 95 06/20/17 04:00 84 06/20/17 03:01 78 22 155/58 (90) 96 06/20/17 02:00 80 06/20/17 02:00 80 23 149/57 (87) 97 06/20/17 01:00 84 23 126/56 (79) 92 06/20/17 00:08 93 Nasal Cannula 2.00 Humidified 06/20/17 00:08 97.9 84 32 146/56 (86) 93 06/20/17 00:00 90 06/19/17 23:30 92 29 151/74 (99) 92 06/19/17 23:15 78 33 140/62 (88) 92 06/19/17 23:00 80 30 135/72 (93) 92 06/19/17 22:45 74 31 137/55 (82) 94 06/19/17 22:30 84 25 136/51 (79) 94 06/19/17 22:15 78 20 73/60 (64) 96 06/19/17 22:00 84 06/19/17 22:00 84 06/19/17 22:00 84 19 107/51 (69) 96 06/19/17 21:45 90 22 116/54 (74) 94 06/19/17 21:30 94 28 121/57 (78) 93 06/19/17 21:15 96 24 122/59 (80) 94 06/19/17 21:00 94 31 125/63 (83) 95 06/19/17 20:47 94 Nasal Cannula 1.00 06/19/17 20:45 90 25 161/77 (105) 94 06/19/17 20:30 92 29 192/74 (113) 93 06/19/17 20:26 86 28 178/99 (125) 97 06/19/17 20:00 98.0 84 25 176/74 (108) 96 06/19/17 20:00 84 06/19/17 19:00 94 Nasal Cannula 1.00 Humidified 06/19/17 19:00 82 26 173/74 (107) 94 I/O 06/19/17 06/19/17 06/19/17 06/20/17 06/20/17 06/20/17 07:00 15:00 23:00 07:00 15:00 23:00 Intake Total 2550 ml 50 ml 100 ml 240 ml Output Total 3000 ml 75 ml 2500 ml Balance -450 ml 50 ml 25 ml -2260 ml Intake Oral 2500 ml 240 ml IV Total 50 ml 50 ml Other 100 ml Output Urine Total 75 ml Stool Total 3000 ml Hemodialysis 2500 ml # Voids 4 # Bowel Movements 1 Result Diagram: 06/20/17 0506/20/17 05 Objective Remarks GENERAL: WBWN WF, On NC SKIN: Warm and dry. HEAD: Normocephalic. EYES: No scleral icterus. No injection or drainage. NECK: Supple, trachea midline. No JVD or lymphadenopathy. CARDIOVASCULAR: Regular rate and rhythm without murmurs, gallops, or rubs. RESPIRATORY: Breath sounds equal bilaterally. No accessory muscle use. GASTROINTESTINAL: Abdomen soft, non-tender, nondistended. MUSCULOSKELETAL: No cyanosis, or edema. BACK: Nontender without obvious deformity. No CVA tenderness. A/P Assessment and Plan VDRF, s/p Extubation COPD Ac renal Failure DM Nicotine use AF with RVR, converted to NSR PLAN: Aerosol nebs Supplement 02, keep sat 88-92% Monitor BS Caitlin qid. Solumedrol 40 mg q 12 hrs CPAP prn Jac Hammonds MD Jun 20, 2017 18:36
[2017-06-20] MEDS: cloNIDine HCL 0.1 MG TAB PO PRN (20:20)
[2017-06-20] MEDS: ATORVASTATIN 40 MG TAB PO SCH (20:20)
--- NOTE | 2017-06-20 20:47 | HHI.GIFU ---
Subjective Remarks Patient laying in bed comfortably, no active bleeding, still a little bit short of breath but overall improved Objective Vitals I&O Vital Signs Date Time Temp Pulse Resp B/P (MAP) Pulse Ox O2 Delivery O2 Flow Rate FiO2 06/20/17 19:36 98 Nasal Cannula 3.00 06/20/17 19:00 72 06/20/17 19:00 72 20 165/77 (106) 98 06/20/17 18:00 82 26 169/67 (101) 06/20/17 18:00 82 06/20/17 17:00 76 21 158/82 (107) 98 06/20/17 17:00 76 06/20/17 16:00 74 06/20/17 16:00 74 18 170/86 (114) 100 06/20/17 15:56 99 40 06/20/17 15:00 66 18 160/72 (101) 100 06/20/17 15:00 66 06/20/17 14:00 70 18 140/53 (82) 99 06/20/17 14:00 70 06/20/17 13:00 72 18 160/63 (95) 100 06/20/17 13:00 72 06/20/17 12:00 72 06/20/17 12:00 72 18 154/77 (102) 100 06/20/17 11:34 74 06/20/17 11:34 74 22 169/70 (103) 100 06/20/17 10:51 98 50 06/20/17 09:00 78 06/20/17 09:00 78 20 157/69 (98) 94 06/20/17 08:16 91 Nasal Cannula 3.00 06/20/17 08:00 78 06/20/17 08:00 76 19 138/53 (81) 91 06/20/17 07:01 80 22 158/83 (108) 95 06/20/17 07:00 97 Bi-Pap 40 06/20/17 06:15 90 Nasal Cannula 3.00 Humidified 06/20/17 06:01 82 31 164/53 (90) 92 06/20/17 06:00 78 06/20/17 05:01 82 22 174/72 (106) 95 06/20/17 05:00 84 06/20/17 04:25 94 Nasal Cannula 2.00 Humidified 06/20/17 04:01 98.1 78 22 157/64 (95) 95 06/20/17 04:00 84 06/20/17 03:01 78 22 155/58 (90) 96 06/20/17 02:00 80 06/20/17 02:00 80 23 149/57 (87) 97 06/20/17 01:00 84 23 126/56 (79) 92 06/20/17 00:08 93 Nasal Cannula 2.00 Humidified 06/20/17 00:08 97.9 84 32 146/56 (86) 93 06/20/17 00:00 90 06/19/17 23:30 92 29 151/74 (99) 92 06/19/17 23:15 78 33 140/62 (88) 92 06/19/17 23:00 80 30 135/72 (93) 92 06/19/17 22:45 74 31 137/55 (82) 94 06/19/17 22:30 84 25 136/51 (79) 94 06/19/17 22:15 78 20 73/60 (64) 96 06/19/17 22:00 84 06/19/17 22:00 84 06/19/17 22:00 84 19 107/51 (69) 96 06/19/17 21:45 90 22 116/54 (74) 94 06/19/17 21:30 94 28 121/57 (78) 93 06/19/17 21:15 96 24 122/59 (80) 94 06/19/17 21:00 94 31 125/63 (83) 95 06/19/17 20:47 94 Nasal Cannula 1.00 06/19/17 20:45 90 25 161/77 (105) 94 I/O 06/19/17 06/19/17 06/19/17 06/20/17 06/20/17 06/20/17 07:00 15:00 23:00 07:00 15:00 23:00 Intake Total 2550 ml 50 ml 100 ml 240 ml 45 ml Output Total 3000 ml 75 ml 2500 ml 0 ml Balance -450 ml 50 ml 25 ml -2260 ml 45 ml Intake Oral 2500 ml 240 ml 45 ml IV Total 50 ml 50 ml Other 100 ml Output Urine Total 75 ml 0 ml Stool Total 3000 ml Hemodialysis 2500 ml # Voids 4 # Bowel Movements 1 Laboratory Laboratory Tests Test 06/20/17 05:40 06/20/17 10:33 06/20/17 16:38 White Blood Count 16.0 Red Blood Count 2.93 Hemoglobin 8.2 Hematocrit 24.7 Mean Corpuscular Volume 84.3 Mean Corpuscular Hemoglobin 27.9 Mean Corpuscular Hemoglobin Concent 33.0 Red Cell Distribution Width 20.5 Platelet Count 116 Mean Platelet Volume 8.5 Neutrophils (%) (Auto) 93.9 Lymphocytes (%) (Auto) 2.1 Monocytes (%) (Auto) 3.6 Eosinophils (%) (Auto) 0.3 Basophils (%) (Auto) 0.1 Neutrophils # (Auto) 15.1 Lymphocytes # (Auto) 0.3 Monocytes # (Auto) 0.6 Eosinophils # (Auto) 0.0 Basophils # (Auto) 0.0 CBC Comment DIFF FINAL Differential Comment Blood Urea Nitrogen 89 Creatinine 5.70 Random Glucose 191 Calcium Level 8.7 Magnesium Level 2.6 Sodium Level 138 Potassium Level 4.2 Chloride Level 96 Carbon Dioxide Level 24.4 Anion Gap 18 Estimat Glomerular Filtration Rate 7 Blood Gas Puncture Site RT RADIAL RT BRACHIAL Blood Gas Patient Temperature 37.0 37.0 Blood Gas HCO3 25 25 Blood Gas Base Excess -0.4 -0.1 Blood Gas Oxygen Saturation 85 95 Arterial Blood pH 7.34 7.36 Arterial Blood Partial Pressure CO2 47 44 Arterial Blood Partial Pressure O2 60 100 Arterial Blood Oxygen Content 9.8 10.6 Arterial Blood Carboxyhemoglobin 1.6 1.7 Arterial Blood Methemoglobin 1.5 1.3 Blood Gas Hemoglobin 8.2 7.8 Oxygen Delivery Device NASAL CANNULA BIPAP Blood Gas Liter Flow 3 Blood Gas Ventilator Setting Blood Gas Inspired Oxygen 40 Date/Time Source Procedure Growth Status 06/12/17 12:45 Blood Peripheral Aerobic Blood Culture - Final NO GROWTH IN 5 DAYS Complete 06/12/17 12:45 Blood Peripheral Anaerobic Blood Culture - Final NO GROWTH IN 5 DAYS Complete 06/13/17 18:31 Stool Stool Stool Occult Blood (MELISSA) - Final HEMOCCULT POSITIVE Complete 06/15/17 06:50 Nasal Aspirate Influenza Types A,B Antigen (MELISSA) - Final NEGATIVE FOR FLU A AND B ANTIGEN.... Complete 06/11/17 20:33 Urine Catheterized Urine Urine Culture - Final Lacey Glabrata Lacey Albicans Complete Physical Exam HEENT: Pupils round and reactive to light; normocephalic; atraumatic; no jaundice. Throat is clear. NECK: Neck is supple, no JVD, no lymphadenopathy. CHEST: Chest is clear to auscultation and percussion. CARDIAC: Regular rate and rhythm with no murmur gallop or rubs. ABDOMEN: Soft, nondistended, nontender; no hepatosplenomegaly; bowel sounds are present in all four quadrants. EXTREMITIES: No clubbing, cyanosis, or edema. Assessment and Plan Plan Patient has COPD seems to be improving, extubated followed by pulmonary She had anemia and rectal bleeding yesterday she undergone upper endoscopy and a colonoscopy by Dr. Moseley, upper endoscopy showed gastritis and small hiatal hernia, colonoscopy showed leading ulcer in the cecum that was treated by clips currently hemoglobin stable no active bleeding Recommend advance diet as tolerated, monitor hemoglobin with packed RBC as needed We will follow up as needed Maria E Guerrero MD Jun 20, 2017 20:47
[2017-06-21] VITALS (32 sets, daily range): BP systolic 150–191; BP diastolic 45–101; PULSE 72–92; RESP 18–33; TEMP 98.5–98.8; O2SAT 89–97
[2017-06-21] MEDS: CHLORHEXIDINE GLUCONATE 2 % 1 PACK (2 CLOTHS) TOP SCH (04:00)
[2017-06-21] MEDS: RESP: ALBUTEROL 2.5 MG/IPRATROPIUM 0.5 MG NEB (SCH) NEB ×6 (04:22→23:50)
[2017-06-21] MEDS: methylPREDNISolone SOD SUCC 40 MG/1 ML VIAL IV PUSH SCH ×4 (04:44→22:29)
[2017-06-21 05:15] LABS: AUTOMATED NEUTROPHIL # 9.4 TH/MM3 (1.8-7.7); BASOPHIL % 0.2 % (0.0-2.0); EOSINOPHIL % 0.2 % (0.0-4.0); HEMATOCRIT 23.9 % (35.0-46.0); HEMO FLAGS DIFF FINAL; LYMPH % 3.7 % (9.0-44.0); LYMPHOCYTE # 0.4 TH/MM3 (1.0-4.8); MEAN CELL VOLUME 84.8 FL (80.0-100.0); MONO % 2.6 % (0.0-8.0); NEUT % 93.3 % (16.0-70.0); PLATELET COUNT 121 TH/MM3 (150-450); RED BLOOD COUNT 2.82 MIL/MM3 (4.00-5.30); RED CELL DISTRIBUTION WIDTH 19.9 % (11.6-17.2); WHITE BLOOD COUNT 10.1 TH/MM3 (4.0-11.0)
[2017-06-21 05:22] LABS: CHLORIDE 98 MEQ/L (98-107); POTASSIUM 4.6 MEQ/L (3.5-5.1); SODIUM (NA) 141 MEQ/L (136-145)
[2017-06-21] MEDS: INSULIN NovoLIN REGULAR SUPPLEMENTAL SCALE SQ SCH ×3 (06:03→17:14)
[2017-06-21 06:28] LABS: ALKALINE PHOSPHATASE 46 U/L (45-117); ALT (GPT) 46 U/L (10-53); ANION GAP 18 MEQ/L (5-15); AST (GOT) 19 U/L (15-37); BICARBONATE 24.8 MEQ/L (21.0-32.0); BLOOD UREA NITROGEN 124 MG/DL (7-18); GLOMERULAR FILTRATION RATE 5 ML/MIN (>89); TOTAL BILIRUBIN ADULT 0.6 MG/DL (0.2-1.0)
[2017-06-21] MEDS: SODIUM CHLORIDE 0.9% FLUSH 10 ML FLUSH IV FLUSH SCH ×3 (09:00→20:36)
[2017-06-21] MEDS: VITAMIN B CMPLX/VITC/FOLIC AC CAP PO SCH (09:00)
[2017-06-21] MEDS: BUDESONIDE-FORMOTEROL 160/4.5 MCG INHALER INH SCH ×2 (09:14→20:36)
[2017-06-21] MEDS: PANTOPRAZOLE SOD 40 MG DELAYED RELEASE TAB PO SCH ×2 (09:14→20:35)
[2017-06-21] MEDS: FERROUS SULFATE 325 MG (65 MG ELEMENTAL IRON) TAB PO SCH (09:14)
[2017-06-21] MEDS: DILTIAZEM-CD 180 MG CAP ER PO SCH (09:14)
[2017-06-21] MEDS: INSULIN DETEMIR 100 UNITS/ML VIAL SQ SCH ×2 (09:14→21:24)
[2017-06-21] MEDS: CALCIUM ACETATE 667 MG CAP PO SCH ×3 (09:14→17:14)
--- NOTE | 2017-06-21 15:52 | HHI.PR ---
Subjective Remarks 76 YOWF with VDRF,Ac renal Failure,DM, Met acidosis No Fever Extubated, on NC Alert awake feels weak, mild sob Breathing better family at BS Objective Vital Signs Vital Signs Date Time Temp Pulse Resp B/P (MAP) Pulse Ox O2 Delivery O2 Flow Rate FiO2 06/21/17 15:30 82 28 95 06/21/17 15:00 86 27 191/76 (114) 93 06/21/17 14:30 82 30 93 06/21/17 14:00 86 06/21/17 14:00 84 26 174/70 (104) 91 06/21/17 13:00 82 23 171/79 (109) 92 06/21/17 12:00 78 23 174/68 (103) 97 06/21/17 12:00 78 06/21/17 11:00 92 28 91 06/21/17 10:00 98.5 78 19 165/76 (105) 91 06/21/17 10:00 82 06/21/17 09:02 82 23 177/67 (103) 90 06/21/17 08:00 76 24 159/70 (99) 94 06/21/17 08:00 84 06/21/17 08:00 2.00 06/21/17 07:40 93 Nasal Cannula 2.00 06/21/17 07:00 72 18 183/70 (107) 90 06/21/17 06:00 74 21 166/59 (94) 89 06/21/17 06:00 74 06/21/17 05:00 72 22 164/78 (106) 92 06/21/17 04:00 98.7 74 21 152/67 (95) 91 06/21/17 04:00 77 06/21/17 03:00 78 21 158/71 (100) 92 06/21/17 02:00 78 20 154/58 (90) 91 06/21/17 02:00 78 06/21/17 01:00 78 22 173/65 (101) 96 06/21/17 00:00 98.8 76 21 175/67 (103) 97 06/21/17 00:00 76 06/20/17 23:00 80 24 176/69 (104) 96 06/20/17 22:00 76 06/20/17 22:00 76 21 175/83 (113) 96 06/20/17 21:00 80 25 177/89 (118) 95 06/20/17 20:06 191/93 (125) 06/20/17 20:00 99.4 86 28 180/85 (116) 95 06/20/17 20:00 98 Nasal Cannula 2.00 06/20/17 20:00 86 06/20/17 19:36 98 Nasal Cannula 3.00 06/20/17 19:00 72 06/20/17 19:00 72 20 165/77 (106) 98 06/20/17 18:00 82 26 169/67 (101) 06/20/17 18:00 82 06/20/17 17:00 76 21 158/82 (107) 98 06/20/17 17:00 76 06/20/17 16:00 74 06/20/17 16:00 74 18 170/86 (114) 100 06/20/17 15:56 99 40 I/O 06/20/17 06/20/17 06/20/17 06/21/17 06/21/17 06/21/17 07:00 15:00 23:00 07:00 15:00 23:00 Intake Total 240 ml 45 ml Output Total 2500 ml 0 ml 0 ml Balance -2260 ml 45 ml 0 ml Intake Oral 240 ml 45 ml Output Urine Total 0 ml 0 ml Hemodialysis 2500 ml # Voids 4 # Bowel Movements 4 Result Diagram: 06/21/1743906/21/17439 Objective Remarks GENERAL: WBWN WF, On NC SKIN: Warm and dry. HEAD: Normocephalic. EYES: No scleral icterus. No injection or drainage. NECK: Supple, trachea midline. No JVD or lymphadenopathy. CARDIOVASCULAR: Regular rate and rhythm without murmurs, gallops, or rubs. RESPIRATORY: Breath sounds equal bilaterally. No accessory muscle use. GASTROINTESTINAL: Abdomen soft, non-tender, nondistended. MUSCULOSKELETAL: No cyanosis, or edema. BACK: Nontender without obvious deformity. No CVA tenderness. A/P Assessment and Plan VDRF, s/p Extubation COPD Ac renal Failure DM Nicotine use AF with RVR, converted to NSR PLAN: Aerosol nebs Supplement 02, keep sat 88-92% Monitor BS Duonebs qid. Solumedrol 40 mg q 12 hrs CPAP prn Jac Hammonds MD Jun 21, 2017 15:52
--- NOTE | 2017-06-21 16:36 | HHI.HCPN ---
Reason for visit a. To assist with evaluation and management of symptoms including: Dyspnea, anxiety b. To assist medical decision maker(s) with: better understanding of current medical conditions; weighing benefits/burdens of medical treatment options; making medical treatment decisions. Subjective/Interval History 76-year-old female admitted with COPD exacerbation and end-stage renal disease now on hemodialysis. On 06/20, during attempt to place dialysis access, she developed severe dyspnea and required BiPAP ventilation. She is Status post intubation 2, now extubated to 3 L nasal cannula, tolerating well. She is seen at this visit sitting up, eating dinner, denying any complaints of dyspnea or discomfort. Interval history: * WBC 10.1, H GB 7.9, HCT 23.9, PLT 121, sodium 141, potassium 4.6, BUN 124, creatinine 7.40. Nasal aspirate is negative for flu a and B. * Pathology: Biopsy of duodenum, gastric antrum, cecal ulcer, transverse ulcer is negative for duodenitis, ileitis, villous atrophy and parasitic station. Gastric antral biopsies consistent with chemical gastropathy, negative for metaplasia or dysplasia. Colonic mucosal biopsies with telangiectasia and vascular congestion negative for ulceration and colitis. * Vital signs: Blood pressure has remained consistently high at 191/76, heart rate 86, respiratory rate 28, oxygen saturation 95% on 2 L nasal cannula, afebrile. Discuss goals of care with patient at length and after questions were answered she determined she did not want recurrent intubation and would not want cardiopulmonary resuscitation. We again reviewed DO NOT RESUSCITATE orders and she reiterated that she did not wish to be resuscitated. DNR orders have been entered. Advance Directives Health Care Surrogate: Copy in medical record Advance Directive Specifics Health Care Surrogate(s): Dorothea Gonzalez, patient's daughter Objective Vital Signs Date Time Temp Pulse Resp B/P (MAP) Pulse Ox O2 Delivery O2 Flow Rate FiO2 06/21/17 15:30 82 28 95 06/21/17 15:00 86 27 191/76 (114) 93 06/21/17 14:30 82 30 93 06/21/17 14:00 86 06/21/17 14:00 84 26 174/70 (104) 91 06/21/17 13:00 82 23 171/79 (109) 92 06/21/17 12:00 78 23 174/68 (103) 97 06/21/17 12:00 78 06/21/17 11:00 92 28 91 06/21/17 10:00 98.5 78 19 165/76 (105) 91 06/21/17 10:00 82 06/21/17 09:02 82 23 177/67 (103) 90 06/21/17 08:00 76 24 159/70 (99) 94 06/21/17 08:00 84 06/21/17 08:00 2.00 06/21/17 07:40 93 Nasal Cannula 2.00 06/21/17 07:00 72 18 183/70 (107) 90 06/21/17 06:00 74 21 166/59 (94) 89 06/21/17 06:00 74 06/21/17 05:00 72 22 164/78 (106) 92 06/21/17 04:00 98.7 74 21 152/67 (95) 91 06/21/17 04:00 77 06/21/17 03:00 78 21 158/71 (100) 92 06/21/17 02:00 78 20 154/58 (90) 91 06/21/17 02:00 78 06/21/17 01:00 78 22 173/65 (101) 96 06/21/17 00:00 98.8 76 21 175/67 (103) 97 06/21/17 00:00 76 06/20/17 23:00 80 24 176/69 (104) 96 06/20/17 22:00 76 06/20/17 22:00 76 21 175/83 (113) 96 06/20/17 21:00 80 25 177/89 (118) 95 06/20/17 20:06 191/93 (125) 06/20/17 20:00 99.4 86 28 180/85 (116) 95 06/20/17 20:00 98 Nasal Cannula 2.00 06/20/17 20:00 86 06/20/17 19:36 98 Nasal Cannula 3.00 06/20/17 19:00 72 06/20/17 19:00 72 20 165/77 (106) 98 06/20/17 18:00 82 26 169/67 (101) 06/20/17 18:00 82 06/20/17 17:00 76 21 158/82 (107) 98 06/20/17 17:00 76 Intake & Output 06/21/17 06/21/17 07:00 19:00 Output Total 0 ml Balance 0 ml Output Urine Total 0 ml # Bowel Movements 4 Physical Exam CONSTITUTIONAL/GENERAL: This is an obese, elderly patient, in no apparent distress. TUBES/LINES/DRAINS: Right PICC SKIN: No jaundice, rashes, or lesions. No wounds seen anteriorly. Skin temperature appropriate. Not diaphoretic. HEAD: Atraumatic. Normocephalic. EYES: Pupils equal and round and reactive. Extraocular motions intact. No scleral icterus. No injection or drainage. Fundi not examined. ENT: Hearing grossly normal. Nose without bleeding or purulent drainage. Throat without visible erythema, exudates, masses, or lesions. NECK: Trachea midline. Supple, nontender. No palpable thyroid enlargement or nodularity. CARDIOVASCULAR: Regular rate and rhythm without murmurs, gallops, or rubs. No JVD. Peripheral pulses symmetric. RESPIRATORY/CHEST: Symmetric, unlabored respirations. Clear to auscultation. Breath sounds equal bilaterally. No wheezes, rales, or rhonchi. GASTROINTESTINAL: Abdomen soft, non-tender, nondistended. No hepato-splenomegaly , or palpable masses. No guarding. Bowel sounds present. GENITOURINARY: Without palpable bladder distension. MUSCULOSKELETAL: Extremities without clubbing, cyanosis, or edema. Left arm appears less swollen. No joint tenderness or effusion noted. No calf tenderness. No mottling or clubbing. NEUROLOGICAL: Awake and alert. Motor and sensory grossly within normal limits. Follows commands. Cognitively sharp. Moves all extremities. PSYCHIATRIC: Anxious, cooperative. . Diagnostic Tests Laboratory Laboratory Tests Test 06/19/17 05:10 06/20/17 05:40 06/20/17 10:33 06/20/17 16:38 White Blood Count 15.1 TH/MM3 (4.0-11.0) 16.0 TH/MM3 (4.0-11.0) Red Blood Count 3.25 MIL/MM3 (4.00-5.30) 2.93 MIL/MM3 (4.00-5.30) Hemoglobin 8.7 GM/DL (11.6-15.3) 8.2 GM/DL (11.6-15.3) Hematocrit 27.0 % (35.0-46.0) 24.7 % (35.0-46.0) Mean Corpuscular Volume 83.2 FL (80.0-100.0) 84.3 FL (80.0-100.0) Mean Corpuscular Hemoglobin 26.9 PG (27.0-34.0) 27.9 PG (27.0-34.0) Mean Corpuscular Hemoglobin Concent 32.3 % (32.0-36.0) 33.0 % (32.0-36.0) Red Cell Distribution Width 18.7 % (11.6-17.2) 20.5 % (11.6-17.2) Platelet Count 128 TH/MM3 (150-450) 116 TH/MM3 (150-450) Mean Platelet Volume 9.1 FL (7.0-11.0) 8.5 FL (7.0-11.0) Neutrophils (%) (Auto) 93.4 % (16.0-70.0) 93.9 % (16.0-70.0) Lymphocytes (%) (Auto) 2.6 % (9.0-44.0) 2.1 % (9.0-44.0) Monocytes (%) (Auto) 3.7 % (0.0-8.0) 3.6 % (0.0-8.0) Eosinophils (%) (Auto) 0.1 % (0.0-4.0) 0.3 % (0.0-4.0) Basophils (%) (Auto) 0.2 % (0.0-2.0) 0.1 % (0.0-2.0) Neutrophils # (Auto) 14.1 TH/MM3 (1.8-7.7) 15.1 TH/MM3 (1.8-7.7) Lymphocytes # (Auto) 0.4 TH/MM3 (1.0-4.8) 0.3 TH/MM3 (1.0-4.8) Monocytes # (Auto) 0.6 TH/MM3 (0-0.9) 0.6 TH/MM3 (0-0.9) Eosinophils # (Auto) 0.0 TH/MM3 (0-0.4) 0.0 TH/MM3 (0-0.4) Basophils # (Auto) 0.0 TH/MM3 (0-0.2) 0.0 TH/MM3 (0-0.2) CBC Comment DIFF FINAL DIFF FINAL Differential Comment Activated Partial Thromboplast Time 22.6 SEC (24.3-30.1) Blood Urea Nitrogen 138 MG/DL (7-18) 89 MG/DL (7-18) Creatinine 8.10 MG/DL (0.50-1.00) 5.70 MG/DL (0.50-1.00) Random Glucose 96 MG/DL (74-106) 191 MG/DL (74-106) Total Protein 6.3 GM/DL (6.4-8.2) Albumin 3.3 GM/DL (3.4-5.0) Calcium Level 8.0 MG/DL (8.5-10.1) 8.7 MG/DL (8.5-10.1) Phosphorus Level 10.3 MG/DL (2.5-4.9) Magnesium Level 2.7 MG/DL (1.5-2.5) 2.6 MG/DL (1.5-2.5) Alkaline Phosphatase 47 U/L (45-117) Aspartate Amino Transf (AST/SGOT) 14 U/L (15-37) Alanine Aminotransferase (ALT/SGPT) 60 U/L (10-53) Total Bilirubin 0.6 MG/DL (0.2-1.0) Sodium Level 140 MEQ/L (136-145) 138 MEQ/L (136-145) Potassium Level 4.7 MEQ/L (3.5-5.1) 4.2 MEQ/L (3.5-5.1) Chloride Level 97 MEQ/L (98-107) 96 MEQ/L (98-107) Carbon Dioxide Level 23.6 MEQ/L (21.0-32.0) 24.4 MEQ/L (21.0-32.0) Anion Gap 19 MEQ/L (5-15) 18 MEQ/L (5-15) Estimat Glomerular Filtration Rate 5 ML/MIN (>89) 7 ML/MIN (>89) Blood Gas Puncture Site RT RADIAL RT BRACHIAL Blood Gas Patient Temperature 37.0 37.0 Blood Gas HCO3 25 mmol/L (22-26) 25 mmol/L (22-26) Blood Gas Base Excess -0.4 mmol/L (-2-2) -0.1 mmol/L (-2-2) Blood Gas Oxygen Saturation 85 % (90-100) 95 % (90-100) Arterial Blood pH 7.34 (7.380-7.420) 7.36 (7.380-7.420) Arterial Blood Partial Pressure CO2 47 mmHg (38-42) 44 mmHg (38-42) Arterial Blood Partial Pressure O2 60 mmHg (61-120) 100 mmHg (61-120) Arterial Blood Oxygen Content 9.8 Vol % (12.0-20.0) 10.6 Vol % (12.0-20.0) Arterial Blood Carboxyhemoglobin 1.6 % (0-4) 1.7 % (0-4) Arterial Blood Methemoglobin 1.5 % (0-2) 1.3 % (0-2) Blood Gas Hemoglobin 8.2 G/DL (12.0-16.0) 7.8 G/DL (12.0-16.0) Oxygen Delivery Device NASAL CANNULA BIPAP Blood Gas Liter Flow 3 L/M Blood Gas Ventilator Setting Blood Gas Inspired Oxygen 40 % Test 06/21/17 04:40 White Blood Count 10.1 TH/MM3 (4.0-11.0) Red Blood Count 2.82 MIL/MM3 (4.00-5.30) Hemoglobin 7.9 GM/DL (11.6-15.3) Hematocrit 23.9 % (35.0-46.0) Mean Corpuscular Volume 84.8 FL (80.0-100.0) Mean Corpuscular Hemoglobin 28.0 PG (27.0-34.0) Mean Corpuscular Hemoglobin Concent 33.0 % (32.0-36.0) Red Cell Distribution Width 19.9 % (11.6-17.2) Platelet Count 121 TH/MM3 (150-450) Mean Platelet Volume 8.8 FL (7.0-11.0) Neutrophils (%) (Auto) 93.3 % (16.0-70.0) Lymphocytes (%) (Auto) 3.7 % (9.0-44.0) Monocytes (%) (Auto) 2.6 % (0.0-8.0) Eosinophils (%) (Auto) 0.2 % (0.0-4.0) Basophils (%) (Auto) 0.2 % (0.0-2.0) Neutrophils # (Auto) 9.4 TH/MM3 (1.8-7.7) Lymphocytes # (Auto) 0.4 TH/MM3 (1.0-4.8) Monocytes # (Auto) 0.3 TH/MM3 (0-0.9) Eosinophils # (Auto) 0.0 TH/MM3 (0-0.4) Basophils # (Auto) 0.0 TH/MM3 (0-0.2) CBC Comment DIFF FINAL Differential Comment Blood Urea Nitrogen 124 MG/DL (7-18) Creatinine 7.40 MG/DL (0.50-1.00) Random Glucose 213 MG/DL (74-106) Total Protein 6.5 GM/DL (6.4-8.2) Albumin 3.9 GM/DL (3.4-5.0) Calcium Level 8.6 MG/DL (8.5-10.1) Alkaline Phosphatase 46 U/L (45-117) Aspartate Amino Transf (AST/SGOT) 19 U/L (15-37) Alanine Aminotransferase (ALT/SGPT) 46 U/L (10-53) Total Bilirubin 0.6 MG/DL (0.2-1.0) Sodium Level 141 MEQ/L (136-145) Potassium Level 4.6 MEQ/L (3.5-5.1) Chloride Level 98 MEQ/L (98-107) Carbon Dioxide Level 24.8 MEQ/L (21.0-32.0) Anion Gap 18 MEQ/L (5-15) Estimat Glomerular Filtration Rate 5 ML/MIN (>89) Result Diagram: 06/21/170 06/21/170 Imaging Last Impressions Chest X-Ray 06/20/17 0000 Signed Impressions: Service Date/Time: Tuesday, June 20, 2017 10:53 - CONCLUSION: Stable chest x-ray with small bibasilar opacities, right greater than left. These likely represent small pleural effusions with associated volume loss and/or consolidation. Christ Heller MD Renal Ultrasound 05/31/17 0000 Signed Impressions: Service Date/Time: Wednesday, May 31, 2017 08:54 - CONCLUSION: 1. Abnormal appearance to the left kidney with diminutive size and poor delineation of the parenchymal architecture. 2. No gross abnormality seen in the right kidney. Aramis Scott MD Procedures 06/01-endotracheal intubation. 06/01-hemodialysis catheter placement in the right IJ vein 06/12-endotracheal intubation 06/12-left IJ central venous catheter placement 06/19-colonoscopy showing ulcers in the cecum, ascending colon, transverse colon and sigmoid diverticulosis. Biopsies taken. Assessment and Plan Disease Oriented Problem List: (1) Acute renal failure (2) Metabolic acidosis (3) Diarrhea (4) Anemia (5) Anxiety (6) Paroxysmal atrial fibrillation (7) Acute and chronic respiratory failure (8) DM2 (diabetes mellitus, type 2) Symptom Scale: (1) Dyspnea and respiratory abnormalities 0-10 Scale: Unable to quantify (2) Anxiety 0-10 Scale: Unable to quantify Pertinent Non-Medical Issues Psychosocial:She was born in 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 She has been twice, in the first and was then during her second marriage. She moved to [place] in 1993 and lives in her own home since that time. She has 1 daughter, Dorothea Gonzalez who lives in [place]. Spiritual: She is a non-practicing Buddhism who would accept shop assistant visits. Legal: She is currently able to make decisions for herself, however has designated her daughter Dorothea as her healthcare surrogate. Ethical issues impacting care: None noted at this time . Important Contacts Daughter-Dorothea Gonzalez Prognosis Her prognosis is guarded. She has been intubated twice and today required BiPAP to prevent a third intubation. She has smoked for approximately 60 years is morbidly obese and sedentary. She is now developed end-stage renal disease and is on dialysis. She has uncontrolled diabetes mellitus and anemia. She was found to have multiple ulcers on colonoscopy and is now on Procrit for combination anemia of chronic disease and GI blood loss. Given her debility from extended hospitalization and baseline decline she is at significant risk for falls, poor self-care and recurrent hospitalizations. . Code Status: Full Code Plan PLAN: Legal decision maker: She is currently able to make her own decisions but has designated her daughter, Dorothea Gonzalez as the healthcare surrogate decision- maker. Goals: Remain aggressive. CODE STATUS: DNR. SYMPTOMS: * Dyspnea: She remains on oxygen at this time. She states that she is not going to smoke anymore and this was encouraged. She is currently receiving duo nebs, Solu-Medrol, Symbicort, Ativan, Ancef and vancomycin. She remains at risk for continued respiratory compromise. * Anxiety: She has a chronic baseline anxiety for which she took Xanax at home. Her anxiety will be a barrier to her resolution to quit smoking. Would recommend initiating a baseline anxiolytic/antidepressant with a benzodiazepine for breakthrough anxiety as needed. Patient will need a [place] DNR prior to discharge. She plans to go to [place] to stay with her daughter. Case Management will need to coordinate chair time for dialysis prior to discharge. Palliative care will continue to follow the patient during hospital course as condition evolves, to assist patient/decision-maker with understanding of their medical conditions, weighing benefits/burdens of treatment options, for clarification of goals of treatment. Additionally will assist with any symptoms of palliative concern. . Attestation To help prompt me to consider important information that might be impacting today's encounter and assessment, information from prior notes written by myself or my colleagues may have been "brought forward" into today's note. My signature on this note, however, is an attestation that I personally performed the exam, history, and/or decision-making noted today, and, unless otherwise indicated, the interactions with patient, family, and staff as well as the review of records all occurred today. I also attest that the listed assessment and stated plan reflect my best clinical judgment today based on the combination of historical information, prior notes, and today's exam/ interactions. When time spent is documented, it refers only to time spent today by the signer, or if indicated, combined time spent today by collaborating physician/nurse practitioner. . Sangeeta Johnson Jun 21, 2017 16:36
--- NOTE | 2017-06-21 16:37 | HHI.CCPN ---
Subjective Remarks/Hospital Course The patient is a 76-year-old female with past medical history of hypertension, hyperlipidemia, diabetes mellitus, COPD, chronic kidney disease, who was admitted to [facility] yesterday under hospitalist service for acute renal failure and COPD exacerbation. On arrival the patient had BUN of 99 with a creatinine of 14 and potassium level 4.8. Chest x-ray on admission showed no evidence of any acute cardiopulmonary disease. She was seen by Dr. Lee from nephrology service and placed on bicarb drip. A renal ultrasound was obtained which showed no evidence of hydronephrosis. Her renal function continued to worsen. A Halicat was called this morning for respiratory distress. She was subsequently transferred to ICU and was intubated by Dr. Davila, the ED physician. ABG post-intubation showed severe hypercapnic and metabolic acidosis with a pH of 6.89, CO2 63, bicarb 12, pAO2 211, saturation 96 % on PRVC mode rate of 14, tidal volume 500. I time one, PEEP five and FIO2 60% . Chest x-ray post-intubation showed ET tube above the brayan and bilateral interstitial pattern. Her laboratory data this morning is significant for hyperkalemia with potassium level 6.1, BUN of 118, creatinine 14.0. When seen the patient is intubated and sedated with Diprivan drip. Her current blood pressure is 179/90 with a pulse of 117. 06/02 Patient s/p HD 06/01 with 2L fluid removal, 2 L removed today as well. . Patient remains intubated on low dose Diprivan but awake, alert and follows commands. Afebrile. She went into Afib with RVR overnight and started on Amio drip. 06/03 Converted to sinus with PAC's on amiodarone. Remains on mechanical ventilation. UOP 50 ml over last 24 hours. Following commands on sedation, will do SBT. Plan for HD today per discussion with FIRST AID DIRECTOR. 06/04 CPAP trial terminated yesterday after patient became tachycardic, anxious. HD was not performed yesterday but plan for today per nephrology. Will use Precedex to facilitate comfort with CPAP. UOP 150. 06/05: Patient had hemodialysis today with 3 L fluid removed. Tolerating CPAP well, awake alert following commands communicating by writing. Chest x-ray remains unchanged 06/06: Overnight placed on Precedex for agitation. Also required BIPAP for hypercapnea. Weaned off Precedex by afternoon today. Currently on Xanax when necessary. At this time on BiPAP. Patient is pleasant and communicative breathing comfortably. Bilateral wheezes on exam. I have started patient on IV Solu-Medrol, Symbicort and Spiriva Reconsult 06/12: Reconsulted secondary to acute hypoxemic respiratory failure. Currently on BiPAP with significant acidosis therefore intubated. Central line placed in the left IJ. 06/13: Afebrile. Currently off phenylephrine drip. Remains intubated. Currently in sinus bradycardia. White blood cell count decreased to 16,000. Will attempt PSV trial today. 06/14: Resting comfortably in bed. Tolerated PSV trial still 8 PM last night. During tube feeds. Positive BM. Following simple commands on minimal sedation. 06/15: Return to normal sinus rhythm. Diltiazem Initiated. Will Attempt PSV Trial Again Today. Positive BMs. We'll Check C. difficile. 06/16: No acute issues overnight. Hemoglobin 7. Will transfuse 1 unit during hemodialysis. Attempt spontaneous breathing trials postdialysis with attempt extubated. 06/17: Extubated yesterday without complication of hemodialysis. -3 L. Positive BM 3. Current 4 L nasal cannula. Less lethargic as AM. Subjective 06/18: Afebrile. Tolerating diet yesterday overnight. Currently in sinus bradycardia. Positive BM. On nasal cannula and feels better than yesterday 06/20 Reconsult for resp distress. Patient was found with labored breathing she was subsequently place on BIPAP 05/11 with 40% FIO2. Afebrile. Awake and alert , CXR showed bibasilar opacities, stable chest. 06/21 No events overnight. Off BIPAP. Awake and alert on 2L oxygen with good sats. Afebrile. Objective Vital Signs Date Time Temp Pulse Resp B/P (MAP) Pulse Ox O2 Delivery O2 Flow Rate FiO2 06/21/17 15:30 82 28 95 06/21/17 15:00 191/76 (114) 06/21/17 10:00 98.5 06/21/17 08:00 2.00 06/21/17 07:40 Nasal Cannula 06/20/17 15:56 40 Intake and Output 06/21/17 06/21/17 06/22/17 08:00 16:00 00:00 Output Total 0 ml Balance 0 ml Result Diagram: 06/21/17 0440 06/21/17 0440 Other Results Laboratory Tests Test 06/20/17 16:38 06/21/17 04:40 Blood Gas Puncture Site RT BRACHIAL Blood Gas Patient Temperature 37.0 Blood Gas HCO3 25 mmol/L Blood Gas Base Excess -0.1 mmol/L Blood Gas Oxygen Saturation 95 % Arterial Blood pH 7.36 Arterial Blood Partial Pressure CO2 44 mmHg Arterial Blood Partial Pressure O2 100 mmHg Arterial Blood Oxygen Content 10.6 Vol % Arterial Blood Carboxyhemoglobin 1.7 % Arterial Blood Methemoglobin 1.3 % Blood Gas Hemoglobin 7.8 G/DL Oxygen Delivery Device BIPAP Blood Gas Ventilator Setting Blood Gas Inspired Oxygen 40 % White Blood Count 10.1 TH/MM3 Red Blood Count 2.82 MIL/MM3 Hemoglobin 7.9 GM/DL Hematocrit 23.9 % Mean Corpuscular Volume 84.8 FL Mean Corpuscular Hemoglobin 28.0 PG Mean Corpuscular Hemoglobin Concent 33.0 % Red Cell Distribution Width 19.9 % Platelet Count 121 TH/MM3 Mean Platelet Volume 8.8 FL Neutrophils (%) (Auto) 93.3 % Lymphocytes (%) (Auto) 3.7 % Monocytes (%) (Auto) 2.6 % Eosinophils (%) (Auto) 0.2 % Basophils (%) (Auto) 0.2 % Neutrophils # (Auto) 9.4 TH/MM3 Lymphocytes # (Auto) 0.4 TH/MM3 Monocytes # (Auto) 0.3 TH/MM3 Eosinophils # (Auto) 0.0 TH/MM3 Basophils # (Auto) 0.0 TH/MM3 CBC Comment DIFF FINAL Differential Comment Blood Urea Nitrogen 124 MG/DL Creatinine 7.40 MG/DL Random Glucose 213 MG/DL Total Protein 6.5 GM/DL Albumin 3.9 GM/DL Calcium Level 8.6 MG/DL Alkaline Phosphatase 46 U/L Aspartate Amino Transf (AST/SGOT) 19 U/L Alanine Aminotransferase (ALT/SGPT) 46 U/L Total Bilirubin 0.6 MG/DL Sodium Level 141 MEQ/L Potassium Level 4.6 MEQ/L Chloride Level 98 MEQ/L Carbon Dioxide Level 24.8 MEQ/L Anion Gap 18 MEQ/L Estimat Glomerular Filtration Rate 5 ML/MIN Imaging Last Impressions Chest X-Ray 06/20/17 0000 Signed Impressions: Service Date/Time: Tuesday, June 20, 2017 10:53 - CONCLUSION: Stable chest x-ray with small bibasilar opacities, right greater than left. These likely represent small pleural effusions with associated volume loss and/or consolidation. Christ Heller MD Renal Ultrasound 05/31/17 0000 Signed Impressions: Service Date/Time: Wednesday, May 31, 2017 08:54 - CONCLUSION: 1. Abnormal appearance to the left kidney with diminutive size and poor delineation of the parenchymal architecture. 2. No gross abnormality seen in the right kidney. Aramis Scott MD Objective Remarks GENERAL: Patient is 76 yo female, resting in bed in NAD SKIN: Warm and dry. No rash. Well-perfused. HEAD: Normocephalic. EYES: No scleral icterus. No injection or drainage. NECK: Supple, trachea midline. No JVD or lymphadenopathy. Right IJ hemodialysis catheter left IJ CVL clean dry and intact CARDIOVASCULAR: RRR. S1, S2. No S4. Without murmurs, clicks, rubs RESPIRATORY: Coarse bibasilar breath sounds. Bilateral inspiratory and expiratory wheezing appreciated. GASTROINTESTINAL: Abdomen soft, non-tender, protuberant. Hypoactive bowel sounds are appreciated MUSCULOSKELETAL: 1+ edema all extremities, upper and lower. NEURO: Awake and oriented to person and place. Moves all 4 extremities spontaneously. Date of Insertion: Jun 12, 2017 Line: Central Venous Catheter Side: Left Location: Internal, Jugular A/P Assessment and Plan Neuro/Psych: Anxiety Awake and alert. Alprazolam 0.5 mg by mouth every 4 hours as needed for anxiety/home medication for anxiety Acetaminophen 650 mg liquid every 6 hours when necessary for fever Pulm: Acute hypercapnic respiratory failure Acute COPD exacerbation Tobacco abuse Extubated 06/05/17. Reintubated 06/12. Extubated 06/16. Continue with oxygen keep sats> 90% Incentive spirometry while awake Albuterol/ipratropium aerosols every 4 hours with albuterol aerosols every 2 hours. Dyspnea On budesonide/formoterol 160 g/4.5 g 2 puffs inhaled twice a day NIPPV PRN for resp distress. A cappella/prep every 6 hours Methylprednisolone 60 mg Q6 Pulm following, Dr. Hammonds CXR 06/20 bibasilar opacities , stable chest. CV: Hypertension Hyperlipidemia Paroxysmal atrial fibrillation currently in sinus bradycardia Monitor HR and BP and maintain MAP>65 mmHg. Currently on diltiazem CD 180mg daily, add Hydralazine 50mg Q8 Echo showed 50-55% normal LV. Possible lipomatous hypertrophy of the inter- atrial septum Currently holding atorvastatin 80 mg by mouth daily at bedtime for dyslipidemia/ home medication in light of elevated liver function tests. 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 Diabetic nephropathy Hyperphosphatemia hyper-magnesium Monitor renal function, I&O's and avoid nephrotoxins. Awaiting PermCath placement. s/p HD 06/19 with removal 2.5L Renal ultrasound 05/31 revealed medical renal disease left kidney/atrophy. Right kidney within normal limits Dr. Lee following. Hemodialysis Monday/Monday and Monday On calcium acetate 1334 mg 3 times a day GI: On pantoprazole 40 mg IV twice a day 1800 ADA diet C diff negative. 2 06/19 s/p EGD, colonoscopy: gastritis, ulcer in cecum with visible vessel - clipped, diverticulosis, hemorrhoids. ID: Acute community acquired pneumonia Asymptomatic candiduria Off abx, monitor for signs of infections ( Fever, WBC) check sputum cx, 06/01 Sputum Kleb pneumonia, E.coli 06/11 Urine cx: C. Glabrata and Albicans Endo: Diabetes mellitus Detemir 25 units subcut q12 hours Continue with SSI- medium scale with accuchecks Heme: Leukocytosis Anemia consistent with anemia of chronic kidney disease Thrombocytopenia On iron sulfate 325 mg daily. Monitor CBC. On Epogen with HD Continue Epogen lorena 10,000 units with hemodialysis GI prophylaxis with pantoprazole 40 mill grams IV twice a day and DVT prophylaxis with SCDs Lines: Right IJ vascath, Left IJ CVP placed 06/12. D/c central line and place peripheral IV's. Level 3 Felix Schultz MD Jun 21, 2017 16:37
--- NOTE | 2017-06-21 16:54 | HHI.NPPN ---
Subjective History of Present Illness 76-year-old female with past medical history of hypertension, diabetes mellitus, hyperlipidemia, ischemic heart disease, chronic kidney disease, chronic obstructive pulmonary disease was admitted because of generalized weakness, decreased urine output. I he was called to see the patient for elevated BUN and creatinine. The patient is known to me from before. She has been following with me in the office and last time I saw her was on May 04 and at that time her creatinine was 2.2 with given the GFR of 19-20 she had advanced stage IV chronic kidney disease most likely because of diabetic nephropathy. Additional Remarks Patient is alert, breathing is better, with nasal cannula, not in distress. Review of Systems General General Remarks Intubated and sedated. Objective Data Data Vital Signs Date Time Temp Pulse Resp B/P (MAP) Pulse Ox O2 Delivery O2 Flow Rate FiO2 06/21/17 15:30 82 28 95 06/21/17 15:00 86 27 191/76 (114) 93 06/21/17 14:30 82 30 93 06/21/17 14:00 86 06/21/17 14:00 84 26 174/70 (104) 91 06/21/17 13:00 82 23 171/79 (109) 92 06/21/17 12:00 78 23 174/68 (103) 97 06/21/17 12:00 78 06/21/17 11:00 92 28 91 06/21/17 10:00 98.5 78 19 165/76 (105) 91 06/21/17 10:00 82 06/21/17 09:02 82 23 177/67 (103) 90 06/21/17 08:00 76 24 159/70 (99) 94 06/21/17 08:00 84 06/21/17 08:00 2.00 06/21/17 07:40 93 Nasal Cannula 2.00 06/21/17 07:00 72 18 183/70 (107) 90 06/21/17 06:00 74 21 166/59 (94) 89 06/21/17 06:00 74 06/21/17 05:00 72 22 164/78 (106) 92 06/21/17 04:00 98.7 74 21 152/67 (95) 91 06/21/17 04:00 77 06/21/17 03:00 78 21 158/71 (100) 92 06/21/17 02:00 78 20 154/58 (90) 91 06/21/17 02:00 78 06/21/17 01:00 78 22 173/65 (101) 96 06/21/17 00:00 98.8 76 21 175/67 (103) 97 06/21/17 00:00 76 06/20/17 23:00 80 24 176/69 (104) 96 06/20/17 22:00 76 06/20/17 22:00 76 21 175/83 (113) 96 06/20/17 21:00 80 25 177/89 (118) 95 06/20/17 20:06 191/93 (125) 06/20/17 20:00 99.4 86 28 180/85 (116) 95 06/20/17 20:00 98 Nasal Cannula 2.00 06/20/17 20:00 86 06/20/17 19:36 98 Nasal Cannula 3.00 06/20/17 19:00 72 06/20/17 19:00 72 20 165/77 (106) 98 06/20/17 18:00 82 26 169/67 (101) 06/20/17 18:00 82 06/20/17 17:00 76 21 158/82 (107) 98 06/20/17 17:00 76 -: 06/21/17 0440 06/21/17 0440 Physical Exam General Appearance: No Acute Distress, Comfortable Eyes Eye Exam: Pupils Equal Throat Throat Exam: Oral Mucosa [place] & Moist Neck Neck Exam: Neck Supple Pulmonary Resp Exam: Breath Sounds Equal, Rhonchi, Decreased Bases, Diminished Breath Sounds, Poor Inspiratory Effort Cardiology CV Exam: Regular, Normal Sinus Rhythm Gastrointestinal/Abdomen GI Exam: Soft, Non-Tender, Bowel Sounds Present, Distended Extremeties Extremities Exam: Trace Edema Neurologic Neuro Exam: Alert, Awake, Oriented Psychiatric Psych Exam: Appropriate Responses Assessment/Plan Assessment Summary: M[place]LE/Acute Renal Failure, Hypertension, CKD Stage IV Problem List: (1) Chronic kidney disease (CKD) ICD Codes: N18.9 - Chronic kidney disease, unspecified (2) Oliguria ICD Codes: R34 - Anuria and oliguria (3) Diarrhea ICD Codes: R19.7 - Diarrhea, unspecified (4) Metabolic acidosis ICD Codes: E87.2 - Acidosis Status: Acute (5) Uremia ICD Codes: N19 - Unspecified kidney failure Status: Acute (6) Acute renal failure ICD Codes: N17.9 - Acute kidney failure, unspecified Status: Acute Plan Patient has advance stage 4 chronic kidney disease, approach stage 5. Started on HD. Patient will need AVF, when stable and care home HD. Patient has COPD with high CO2 and developing SOB off and on. Off vent doing better BP is stable. Hgb. is better now,on Epogen. HD is due today, has problem with HD machine. If fixed tonight, HD tonight otherwise in AM. Problem Qualifiers (1) Chronic kidney disease (CKD): Qualified Codes: N18.5 - Chronic kidney disease, stage 5 (2) Acute renal failure: Qualified Codes: N17.9 - Acute kidney failure, unspecified Lexy Lee MD Jun 21, 2017 16:54
[2017-06-21] MEDS: hydrALAZINE HCL 50 MG TAB PO SCH ×2 (17:15→20:35)
[2017-06-21] MEDS: LOPERAMIDE HCL SOLN 2 MG/10 ML UDC PO PRN (20:35)
[2017-06-21] MEDS: ATORVASTATIN 40 MG TAB PO SCH (20:36)
[2017-06-22] VITALS (168 sets, daily range): BP systolic 78–190; BP diastolic 44–91; PULSE 75–155; RESP 12–31; TEMP 97.6–99; O2SAT 87–98
[2017-06-22] MEDS: INSULIN NovoLIN REGULAR SUPPLEMENTAL SCALE SQ SCH ×6 (00:21→20:26)
[2017-06-22] MEDS: cloNIDine HCL 0.1 MG TAB PO PRN (02:28)
[2017-06-22] MEDS: RESP: ALBUTEROL 2.5 MG/IPRATROPIUM 0.5 MG NEB (SCH) NEB ×7 (03:26→23:31)
[2017-06-22] MEDS: CHLORHEXIDINE GLUCONATE 2 % 1 PACK (2 CLOTHS) TOP SCH (03:44)
[2017-06-22 04:44] LABS: AUTOMATED NEUTROPHIL # 10.2 TH/MM3 (1.8-7.7); BASOPHIL % 0.1 % (0.0-2.0); HEMATOCRIT 24.1 % (35.0-46.0); HEMO FLAGS DIFF FINAL; LYMPH % 3.1 % (9.0-44.0); LYMPHOCYTE # 0.3 TH/MM3 (1.0-4.8); MEAN CELL VOLUME 83.3 FL (80.0-100.0); MEAN CORPUSCULAR HEMOGLOBIN 26.5 PG (27.0-34.0); MEAN CORPUSCULAR HGB CONC 31.9 % (32.0-36.0); MONO % 2.5 % (0.0-8.0); NEUT % 94.3 % (16.0-70.0); PLATELET COUNT 143 TH/MM3 (150-450); RED CELL DISTRIBUTION WIDTH 20.5 % (11.6-17.2); WHITE BLOOD COUNT 10.8 TH/MM3 (4.0-11.0)
[2017-06-22 04:50] LABS: POTASSIUM 4.6 MEQ/L (3.5-5.1)
[2017-06-22 04:54] LABS: BICARBONATE 22.5 MEQ/L (21.0-32.0)
[2017-06-22] MEDS: methylPREDNISolone SOD SUCC 40 MG/1 ML VIAL IV PUSH SCH ×3 (05:06→22:31)
[2017-06-22] MEDS: hydrALAZINE HCL 50 MG TAB PO SCH ×3 (05:57→22:31)
--- NOTE | 2017-06-22 06:27 | HHI.CCPN ---
Subjective Remarks/Hospital Course The patient is a 76-year-old female with past medical history of hypertension, hyperlipidemia, diabetes mellitus, COPD, chronic kidney disease, who was admitted to [facility] yesterday under hospitalist service for acute renal failure and COPD exacerbation. On arrival the patient had BUN of 99 with a creatinine of 14 and potassium level 4.8. Chest x-ray on admission showed no evidence of any acute cardiopulmonary disease. She was seen by Dr. Lee from nephrology service and placed on bicarb drip. A renal ultrasound was obtained which showed no evidence of hydronephrosis. Her renal function continued to worsen. A Halicat was called this morning for respiratory distress. She was subsequently transferred to ICU and was intubated by Dr. Davila, the ED physician. ABG post-intubation showed severe hypercapnic and metabolic acidosis with a pH of 6.89, CO2 63, bicarb 12, pAO2 211, saturation 96 % on PRVC mode rate of 14, tidal volume 500. I time one, PEEP five and FIO2 60% . Chest x-ray post-intubation showed ET tube above the brayan and bilateral interstitial pattern. Her laboratory data this morning is significant for hyperkalemia with potassium level 6.1, BUN of 118, creatinine 14.0. When seen the patient is intubated and sedated with Diprivan drip. Her current blood pressure is 179/90 with a pulse of 117. 06/02 Patient s/p HD 06/01 with 2L fluid removal, 2 L removed today as well. . Patient remains intubated on low dose Diprivan but awake, alert and follows commands. Afebrile. She went into Afib with RVR overnight and started on Amio drip. 06/03 Converted to sinus with PAC's on amiodarone. Remains on mechanical ventilation. UOP 50 ml over last 24 hours. Following commands on sedation, will do SBT. Plan for HD today per discussion with [facility]. 06/04 CPAP trial terminated yesterday after patient became tachycardic, anxious. HD was not performed yesterday but plan for today per nephrology. Will use Precedex to facilitate comfort with CPAP. UOP 150. 06/05: Patient had hemodialysis today with 3 L fluid removed. Tolerating CPAP well, awake alert following commands communicating by writing. Chest x-ray remains unchanged 06/06: Overnight placed on Precedex for agitation. Also required BIPAP for hypercapnea. Weaned off Precedex by afternoon today. Currently on Xanax when necessary. At this time on BiPAP. Patient is pleasant and communicative breathing comfortably. Bilateral wheezes on exam. I have started patient on IV Solu-Medrol, Symbicort and Spiriva Reconsult 06/12: Reconsulted secondary to acute hypoxemic respiratory failure. Currently on BiPAP with significant acidosis therefore intubated. Central line placed in the left IJ. 06/13: Afebrile. Currently off phenylephrine drip. Remains intubated. Currently in sinus bradycardia. White blood cell count decreased to 16,000. Will attempt PSV trial today. 06/14: Resting comfortably in bed. Tolerated PSV trial still 8 PM last night. During tube feeds. Positive BM. Following simple commands on minimal sedation. 06/15: Return to normal sinus rhythm. Diltiazem Initiated. Will Attempt PSV Trial Again Today. Positive BMs. We'll Check C. difficile. 06/16: No acute issues overnight. Hemoglobin 7. Will transfuse 1 unit during hemodialysis. Attempt spontaneous breathing trials postdialysis with attempt extubated. 06/17: Extubated yesterday without complication of hemodialysis. -3 L. Positive BM 3. Current 4 L nasal cannula. Less lethargic as AM. 06/18: Afebrile. Tolerating diet yesterday overnight. Currently in sinus bradycardia. Positive BM. On nasal cannula and feels better than yesterday Reconsult 06/20 Reconsult for resp distress. Patient was found with labored breathing she was subsequently place on BIPAP 05/11 with 40% FIO2. Afebrile. Awake and alert , CXR showed bibasilar opacities, stable chest. 06/21 No events overnight. Off BIPAP. Awake and alert on 2L oxygen with good sats. Afebrile. Subjective 06/22: Patient currently afebrile on room air. Continues to have rhonchorous breath sounds with end expiratory wheezing. Continues to have black tarry stools. Hemoglobin stable however. Known cecal ulcer status post clipping by Dr. Moseley with transverse/ascending colon ulcers. Very pleasant. Patient is a DNR DO NOT INTUBATE. Plan for permacath today. Objective Vital Signs Date Time Temp Pulse Resp B/P (MAP) Pulse Ox O2 Delivery O2 Flow Rate FiO2 06/22/17 05:00 76 17 171/80 (110) 96 06/22/17 04:00 98.4 06/21/17 20:35 Nasal Cannula 2.00 06/20/17 15:56 40 Result Diagram: 06/22/17 0353 06/22/17 0353 Other Results Microbiology Date/Time Source Procedure Growth Status 06/12/17 12:45 Blood Peripheral Aerobic Blood Culture - Final NO GROWTH IN 5 DAYS Complete 06/12/17 12:45 Blood Peripheral Anaerobic Blood Culture - Final NO GROWTH IN 5 DAYS Complete 06/13/17 18:31 Stool Stool Stool Occult Blood (MELISSA) - Final HEMOCCULT POSITIVE Complete 06/15/17 06:50 Nasal Aspirate Influenza Types A,B Antigen (MELISSA) - Final NEGATIVE FOR FLU A AND B ANTIGEN.... Complete 06/11/17 20:33 Urine Catheterized Urine Urine Culture - Final Lacey Glabrata Lacey Albicans Complete Imaging Last Impressions Chest X-Ray 06/20/17 0000 Signed Impressions: Service Date/Time: Tuesday, June 20, 2017 10:53 - CONCLUSION: Stable chest x-ray with small bibasilar opacities, right greater than left. These likely represent small pleural effusions with associated volume loss and/or consolidation. Christ Heller MD Renal Ultrasound 05/31/17 0000 Signed Impressions: Service Date/Time: Wednesday, May 31, 2017 08:54 - CONCLUSION: 1. Abnormal appearance to the left kidney with diminutive size and poor delineation of the parenchymal architecture. 2. No gross abnormality seen in the right kidney. Aramis Scott MD Objective Remarks GENERAL: Patient is 76 yo female, resting in bed in NAD SKIN: Warm and dry. No rash. Well-perfused. HEAD: Normocephalic. EYES: No scleral icterus. No injection or drainage. NECK: Supple, trachea midline. No JVD or lymphadenopathy. Right IJ hemodialysis catheter left IJ CVL clean dry and intact CARDIOVASCULAR: RRR. S1, S2. No S4. Without murmurs, clicks, rubs RESPIRATORY: Coarse bibasilar breath sounds. Bilateral inspiratory and expiratory wheezing appreciated. GASTROINTESTINAL: Abdomen soft, non-tender, protuberant. Hypoactive bowel sounds are appreciated MUSCULOSKELETAL: 1+ edema all extremities, upper and lower. NEURO: Awake and oriented to person and place. Moves all 4 extremities spontaneously. Date of Insertion: Jun 12, 2017 Line: Central Venous Catheter Side: Left Location: Internal, Jugular A/P Assessment and Plan Neuro/Psych: Anxiety disorder NOS Alprazolam 0.5 mg by mouth every 8hours as needed for anxiety/home medication for anxiety Acetaminophen 650 mg liquid every 6 hours when necessary for fever Acetaminophen/hydrocodone 5/325 one tablet every 6 hours as needed Pain 1-5. Morphine sulfate 2 mg IV every 4 hours as needed pain 6-10 Pulm: Acute hypercapnic respiratory failure - resolved Acute COPD exacerbation - resolved Tobacco abuse Extubated 06/05/17. Reintubated 06/12. Extubated 06/16. Continue with oxygen keep sats> 90%. Currently 2 L nasal cannula Incentive spirometry while awake Albuterol/ipratropium aerosols every 4 hours with albuterol aerosols every 2 hours. Dyspnea On budesonide/formoterol 160 g/4.5 g 2 puffs inhaled twice a day NIPPV PRN for resp distress. A cappella/prep every 6 hours Methylprednisolone 40 mg every 8 hours Pulm following, Dr. Hammonds CXR 06/20 bibasilar opacities , stable chest. CV: Hypertension Hyperlipidemia Paroxysmal atrial fibrillation currently in sinus bradycardia Monitor HR and BP and maintain MAP>65 mmHg. Currently on diltiazem CD 180mg daily will increase to 240, add Hydralazine 50mg Q8 will increase to 100 every 8 hours and add Imdur 30 mg daily Holding lisinopril 20 mg twice a day/home medication light of acute kidney injury Echo showed 50-55% normal LV. Possible lipomatous hypertrophy of the inter- atrial septum Currently holding atorvastatin 80 mg by mouth daily at bedtime for dyslipidemia/ home medication in light of elevated liver function tests. Resume when clinically indicated Currently on atorvastatin 80 mg daily for dyslipidemia Renal/FEN/: CKD Stage IV, on HD and probable ESRD with long term care social worker dialysis. Diabetic nephropathy Monitor renal function, I&O's and avoid nephrotoxins. Awaiting PermCath placement. s/p HD 06/19 with removal 2.5L. Hemodialysis not done yesterday 06/21 due to fact the machine broke. Plan for hemodialysis today. Renal ultrasound 05/31 revealed medical renal disease left kidney/atrophy. Right kidney within normal limits Dr. Lee following. Hemodialysis Monday/Monday and Monday On calcium acetate 1334 mg 3 times a day GI: Cecal ulcer with visible vessel status post clipping 2 06/19 Dr. Moseley Transverse/ascending colon ulcer Sigmoid diverticulosis Internal and external hemorrhoids On pantoprazole 40 mg po twice a day Renal diet C diff negative. 2 06/19 s/p EGD, colonoscopy: gastritis, ulcer in cecum with visible vessel - clipped, , ascending and transverse colon ulcer, sigmoid diverticulosis, internal and external hemorrhoids. ID: Acute community acquired pneumonia Asymptomatic candiduria Off abx, monitor for signs of infections (Fever, WBC) 06/01 Sputum Kleb pneumonia, E.coli 06/11 Urine cx: C. Glabrata and Albicans Endo: Diabetes mellitus Hyperglycemia Detemir 25 units subcut q12 hours Continue with SSI- medium scale with Accu-Cheks every before meals/at bedtime with Novulin R. 32 units insulin scale insulin past 24 hours Heme: Anemia consistent with anemia of chronic kidney disease Thrombocytopenia On iron sulfate 325 mg daily. Monitor CBC. Continue Epogen lorena 10,000 units with hemodialysis GI prophylaxis with pantoprazole 40 mill grams po twice a day and DVT prophylaxis with SCDs and no pharmacological prophylaxis in light of melena stools per consistent, cecal ulcer Lines: Right IJ vascath since 06/01. Plan for permacath today, Left IJ CVP placed 06/12. D/c central line and place peripheral IV's. Level 2 Patient is stable from critical care medicine standpoint. We'll assign care to hospitalist in a.m. 06/23. Mitchel Loera MD Jun 22, 2017 06:27
[2017-06-22] MEDS ORDERED: LABETALOL HCL 100 MG/20 ML VIAL IV PUSH PRN (06:45)
[2017-06-22] MEDS ORDERED: hydrALAZINE HCL 20 MG/ML VIAL IV PUSH PRN (06:45)
[2017-06-22] MEDS ORDERED: NITROGLYCERIN 2% OINT 1 GM PACKET TOPICAL PRN (06:45)
[2017-06-22] MEDS: ISOSORBIDE MONONITRATE 30 MG TAB PO SCH (07:00)
[2017-06-22] MEDS: ALBUMIN 25% INJ 100 ML IV PRN (08:22)
[2017-06-22] MEDS: PANTOPRAZOLE SOD 40 MG DELAYED RELEASE TAB PO SCH ×2 (09:00→20:26)
[2017-06-22] MEDS: VITAMIN B CMPLX/VITC/FOLIC AC CAP PO SCH (09:00)
[2017-06-22] MEDS: BUDESONIDE-FORMOTEROL 160/4.5 MCG INHALER INH SCH ×2 (09:00→20:25)
[2017-06-22] MEDS: FERROUS SULFATE 325 MG (65 MG ELEMENTAL IRON) TAB PO SCH (09:00)
[2017-06-22] MEDS: INSULIN DETEMIR 100 UNITS/ML VIAL SQ SCH ×2 (09:00→20:26)
[2017-06-22] MEDS: CALCIUM ACETATE 667 MG CAP PO SCH ×3 (09:00→18:00)
[2017-06-22] MEDS: SODIUM CHLORIDE 0.9% FLUSH 10 ML FLUSH IV FLUSH SCH ×3 (09:00→20:25)
[2017-06-22] MEDS: DILTIAZEM-CD 240 MG CAP ER PO SCH (09:31)
[2017-06-22] MEDS: GENTAMICIN SULFATE (DIALYSIS USE ONLY) 20 MG/2 ML VIAL OTHER PRN (09:39)
[2017-06-22] MEDS: HEPARIN SODIUM - IV 10,000 UNITS/10 ML VIAL PRN (09:40)
--- NOTE | 2017-06-22 09:50 | OTSOAPIP ---
RECEVIED OCCUPATIONAL THERAPY ORDERS. ATTEMPTED TO SEE PATIENT, HOWEVER UPON ARRIVAL PATIENT UNDERGOING HEMODIALYSIS IN ROOM. PER RN, PATIENT'S RESTING HEART RATE FLUCTUATING. ADDITIONALLY, PATIENT IS SCHEDULED TO HAVE A PERMACATH PLACED THIS DATE. WILL FOLLOW UP WITH PATIENT NEXT DAY. INTERDISCIPLINARY COMMUNICATION: REVIEWED ELECTRONIC MEDICAL RECORD, SPOKE WITH RN Therapist: Brenda Jackson, OTR/L Signature on file
[2017-06-22] MEDS ORDERED: ceFAZolin 2 GM PREMIX 50 ML IV SCH (10:45)
[2017-06-22] MEDS ORDERED: DILTIAZEM HCL 25 MG/5 ML VIAL IV ONE (11:45)
[2017-06-22] MEDS: DILTIAZEM INJ 125 MG in SODIUM CHLORIDE 0.9% INJ 100 ML IV PRN ×2 (12:43→22:33)
--- NOTE | 2017-06-22 13:28 | HHI.NPPN ---
Subjective History of Present Illness 76-year-old female with past medical history of hypertension, diabetes mellitus, hyperlipidemia, ischemic heart disease, chronic kidney disease, chronic obstructive pulmonary disease was admitted because of generalized weakness, decreased urine output. I he was called to see the patient for elevated BUN and creatinine. The patient is known to me from before. She has been following with me in the office and last time I saw her was on May 04 and at that time her creatinine was 2.2 with given the GFR of 19-20 she had advanced stage IV chronic kidney disease most likely because of diabetic nephropathy. Additional Remarks Patient is alert, breathing is better, with nasal cannula, not in distress, seen after HD. Review of Systems General General Remarks Intubated and sedated. Objective Data Data 06/22/17 06/23/17 19:00 07:00 Output Total 2500 ml Balance -2500 ml Hemodialysis 2500 ml Vital Signs Date Time Temp Pulse Resp B/P (MAP) Pulse Ox O2 Delivery O2 Flow Rate FiO2 06/22/17 13:15 134 16 108/50 (69) 97 06/22/17 13:14 129 108/50 06/22/17 13:10 130 13 93/63 (73) 97 06/22/17 13:05 124 14 112/72 (85) 96 06/22/17 13:00 132 14 133/81 (98) 97 06/22/17 12:55 122 13 96 06/22/17 12:54 130 13 136/58 (84) 97 06/22/17 12:50 132 13 96 06/22/17 12:49 132 14 136/71 (92) 97 06/22/17 12:49 136/71 (92) 06/22/17 12:45 132 15 97 06/22/17 12:45 132 15 97 06/22/17 12:44 126 14 144/58 (86) 97 06/22/17 12:43 129 136/57 06/22/17 12:40 126 19 98 06/22/17 12:39 134 14 136/57 (83) 97 06/22/17 12:35 126 13 96 06/22/17 12:34 130 15 110/60 (77) 96 06/22/17 12:30 128 20 96 06/22/17 12:29 136 22 123/69 (87) 96 06/22/17 12:25 140 23 94 06/22/17 12:24 142 31 78/53 (61) 94 06/22/17 12:20 140 21 93 06/22/17 12:19 136 16 138/68 (91) 95 06/22/17 12:19 136 16 138/68 (91) 95 06/22/17 12:15 130 14 96 06/22/17 12:14 136 17 134/62 (86) 95 06/22/17 12:14 136 17 134/62 (86) 95 06/22/17 12:10 134 17 95 06/22/17 12:09 97.7 136 18 119/68 (85) 95 06/22/17 12:09 136 18 119/68 (85) 95 06/22/17 12:05 118 14 96 06/22/17 12:05 118 14 96 06/22/17 12:04 122 14 98/55 (69) 96 06/22/17 12:04 122 14 98/55 (69) 96 06/22/17 12:00 122 14 94 06/22/17 12:00 138 06/22/17 11:59 116 15 109/52 (71) 94 06/22/17 11:56 122 14 116/57 (76) 95 06/22/17 11:54 120 15 135/51 (79) 94 06/22/17 11:50 138 14 96 06/22/17 11:49 136 14 137/53 (81) 95 06/22/17 11:44 144 15 147/72 (97) 97 06/22/17 11:39 140 13 133/70 (91) 96 06/22/17 11:35 138 12 96 06/22/17 11:34 144 19 138/61 (86) 96 06/22/17 11:29 140 13 116/64 (81) 95 06/22/17 11:24 138 14 106/63 (77) 95 06/22/17 11:24 138 14 106/63 (77) 95 06/22/17 11:20 136 12 95 06/22/17 11:20 136 12 95 06/22/17 11:19 134 13 128/66 (86) 95 06/22/17 11:15 140 14 110/59 (76) 96 06/22/17 11:10 142 12 95 11/16/17 11:00 150 15 143/62 (89) 96 06/22/17 10:55 136 21 98 06/22/17 10:51 144 21 144/65 (91) 96 06/22/17 10:50 140 16 96 06/22/17 10:46 98.9 06/22/17 10:45 155 121/69 (86) 06/22/17 10:45 144 17 121/69 (86) 97 06/22/17 10:40 142 18 97 06/22/17 10:35 144 18 98 06/22/17 10:30 146 17 111/65 (80) 97 06/22/17 10:30 146 17 111/65 (80) 97 06/22/17 10:25 142 17 97 06/22/17 10:20 146 16 96 06/22/17 10:15 140 17 141/70 (93) 96 06/22/17 10:15 140 17 141/70 (93) 96 06/22/17 10:10 152 17 96 06/22/17 10:05 146 17 96 06/22/17 10:00 144 18 137/51 (79) 96 06/22/17 10:00 144 18 137/51 (79) 96 06/22/17 09:45 146 18 114/62 (79) 96 06/22/17 09:33 144 17 132/68 (89) 97 06/22/17 09:30 142 19 102/60 (74) 97 06/22/17 09:15 84 16 163/62 (95) 98 06/22/17 09:00 86 16 163/65 (97) 97 06/22/17 09:00 86 16 163/65 (97) 97 06/22/17 08:45 90 18 151/59 (89) 96 06/22/17 08:30 88 19 147/66 (93) 96 06/22/17 08:15 90 17 139/62 (87) 94 06/22/17 08:00 78 06/22/17 08:00 80 19 159/77 (104) 97 06/22/17 08:00 2.00 06/22/17 07:48 96 Nasal Cannula 2.00 06/22/17 07:00 99.0 80 18 162/71 (101) 96 06/22/17 06:00 75 06/22/17 06:00 78 19 180/91 (120) 96 06/22/17 05:00 76 17 171/80 (110) 96 06/22/17 04:00 82 06/22/17 04:00 98.4 84 17 189/83 (118) 96 06/22/17 03:00 82 20 171/60 (97) 96 06/22/17 02:28 90 22 172/70 (104) 96 06/22/17 02:00 90 16 190/55 (100) 97 06/22/17 02:00 90 16 190/55 (100) 97 06/22/17 02:00 96 06/22/17 01:00 84 22 161/58 (92) 95 06/22/17 01:00 84 22 161/58 (92) 95 06/22/17 00:24 88 27 173/70 (104) 96 06/22/17 00:00 98.4 84 20 185/59 (101) 97 06/22/17 00:00 84 20 185/59 (101) 97 06/22/17 00:00 87 06/21/17 23:00 82 21 150/45 (80) 95 06/21/17 22:29 80 19 167/52 (90) 96 06/21/17 22:00 80 06/21/17 21:00 82 21 179/75 (109) 94 06/21/17 20:35 95 Nasal Cannula 2.00 06/21/17 20:21 98.6 84 33 180/101 (127) 93 06/21/17 20:00 82 06/21/17 19:00 86 26 181/62 (101) 92 06/21/17 19:00 95 Nasal Cannula 2.00 06/21/17 18:00 85 06/21/17 18:00 80 19 191/74 (113) 94 06/21/17 17:00 84 25 177/65 (102) 95 06/21/17 16:49 84 26 190/73 (112) 94 06/21/17 16:16 90 28 189/67 (107) 95 06/21/17 16:00 82 24 189/80 (116) 95 06/21/17 16:00 80 06/21/17 15:30 82 28 95 06/21/17 15:00 86 27 191/76 (114) 93 06/21/17 14:30 82 30 93 06/21/17 14:00 86 06/21/17 14:00 84 26 174/70 (614) 91 -: 06/22/17 0353 06/22/17 0353 Physical Exam General Appearance: No Acute Distress, Comfortable Eyes Eye Exam: Pupils Equal Throat Throat Exam: Oral Mucosa [place] & Moist Neck Neck Exam: Neck Supple Pulmonary Resp Exam: Breath Sounds Equal, Rhonchi, Decreased Bases, Diminished Breath Sounds, Poor Inspiratory Effort Cardiology CV Exam: Regular, Normal Sinus Rhythm Gastrointestinal/Abdomen GI Exam: Soft, Non-Tender, Bowel Sounds Present, Distended Extremeties Extremities Exam: Trace Edema Neurologic Neuro Exam: Alert, Awake, Oriented Psychiatric Psych Exam: Appropriate Responses Assessment/Plan Assessment Summary: [place]/Acute Renal Failure, Hypertension, CKD Stage IV Problem List: (1) Chronic kidney disease (CKD) ICD Codes: N18.9 - Chronic kidney disease, unspecified (2) Oliguria ICD Codes: R34 - Anuria and oliguria (3) Diarrhea ICD Codes: R19.7 - Diarrhea, unspecified (4) Metabolic acidosis ICD Codes: E87.2 - Acidosis Status: Acute (5) Uremia ICD Codes: N19 - Unspecified kidney failure Status: Acute (6) Acute renal failure ICD Codes: N17.9 - Acute kidney failure, unspecified Status: Acute Plan Patient has advance stage 4 chronic kidney disease, approach stage 5. Started on HD. Patient will need AVF, when stable and termination clerk HD. Patient has COPD with high CO2 and developing SOB off and on. Off vent doing better BP is stable. Hgb. is better now,on Epogen. HD done in AM and 2.5 liters removed. Now going for PermCath. She will also need AVF and out patient HD. Problem Qualifiers (1) Chronic kidney disease (CKD): Qualified Codes: N18.5 - Chronic kidney disease, stage 5 (2) Acute renal failure: Qualified Codes: N17.9 - Acute kidney failure, unspecified Lexy Lee MD Jun 22, 2017 13:28
[2017-06-22] MEDS: VANCOMYCIN INJ 1,000 MG in SODIUM CHLOR 0.9% 250 ML INJ 250 ML IV SCH ×2 (13:41→16:12)
--- NOTE | 2017-06-22 15:38 | PD.RAD ---
Post Procedure Progress Note Pre Procedure Diagnosis: (1) Acute renal failure Post Procedure Diagnosis: (1) Acute renal failure (2) Chronic kidney disease (CKD) Procedure Date: Jun 22, 2017 Supervising Radiologist: Robles Corral Proceduralist/Assist: Ervin Jennings RT(R), Shannan Levine RT(R) Anesthesia: Local, Analgesia, Conscious Sedation Plan of Activity Patient to Unit: PACU Patient Condition: Good See PACS Report for procedural detail/treatment Central Venous Access Device Procedure 1 Right Internal Jugular Hemodialysis Catheter Tunneled Placement dual lumen Swazi: 15 PICC Line Length (cm): 23 Robles Corral MD Jun 22, 2017 15:38
[2017-06-22] MEDS ORDERED: HEPARIN SODIUM - IV 2,000 UNITS/2 ML VIAL IV FLUSH PRN (15:45)
[2017-06-22] MEDS ORDERED: SODIUM CHLORIDE 0.9% FLUSH 10 ML FLUSH IV FLUSH PRN (15:45)
[2017-06-22] MEDS ORDERED: MIDAZOLAM HCL 5 MG/5 ML VIAL IV PUSH ONE (16:15)
--- NOTE | 2017-06-22 16:25 | RADRPT ---
EXAM DATE/TIME: 06/22/2017 14:04 [facility] COMPARISON: No previous studies available for comparison. INDICATIONS : Patient presents with acute renal failure in need of dialysis catheter placement. MEDICAL HISTORY : Hypertension Hyperlipidemia Diabetes Chronic Kidney disease stage IV per records Chronic obstructive pulmonary disease SURGICAL HISTORY : Cholecystectomy Hysterectomy ENCOUNTER: Initial ACUITY: 1 month PAIN SCORE: 0/10 LOCATION: N/A FLUORO TIME: 2.7 minutes IMAGE SERIES: 1 SEDATION TIME: 15 minutes ACCESS: Right internal jugular vein SEDATION: 1.) 1 mg midazolam (Versed) IV 2.) 50 mcg fentanyl (Sublimaze) IV Prophylactic antibiotics were administered with appropriate pre-procedure timing. Vancomycin within 2 hours of procedure, Ancef (or alternative) within 1 hour of procedure. DEVICE: 1. 15 Turkmen dual lumen 23 cm Elaine II Plus catheter PROCEDURE : 1. Ultrasound-guided venipuncture. 2. PermaCath placement. 3. Conscious sedation with continuous EKG and oximetry monitoring. The risks, benefits and alternatives to the procedure were explained and verbal and written consent w as obtained. The site was prepped in sterile fashion. Full sterile technique was used, including ca p, mask, sterile gloves and gown and a large sterile sheet. Hand hygiene and 2% chlorhexidine and/or betadine/alcohol prep was utilized per protocol for cutaneous antisepsis. Sterile gel and sterile p robe cover were utilized for ultrasound guidance. The skin and subcutaneous tissues were infiltrated with local anesthetic solution. With ultrasound and fluoroscopic guidance a dermatotomy was created over the prescribed vein. A micr opuncture set was used to access the targeted vein and serial dilatation was performed to accept the prescribed length catheter. A subcutaneous tunnel was created in a retrograde fashion the catheter w as pulled through the tunnel. The catheter was flushed and assembled and locked with heparin. The c atheter was sutured in place. Conscious sedation was performed with the prescribed dosages and duration as above in the presence of an independent trained radiology nurse to assist in the monitoring of the patient. EKG and oximetry remained stable throughout the procedure. The patient tolerated the procedure well and there were n o complications. The patient was sent to post anesthesia recovery in stable condition. CONCLUSION: Uncomplicated PermaCath placement as above. Robles Corral MD on June 22, 2017 at 16:23 Board Certified Radiologist. This report was verified electronically.
--- NOTE | 2017-06-22 16:25 | RADRPT ---
EXAM DATE/TIME: 06/22/2017 00:00 [facility] COMPARISON: No previous studies available for comparison. INDICATIONS : Patient presents with acute renal failure in need of temporary dialysis catheter removal for the plac ement of a more suitable residential replacement. MEDICAL HISTORY : Hypertension Hyperlipidemia Diabetes Chronic Kidney disease stage IV per records Chronic obstructive pulmonary disease SURGICAL HISTORY : Cholecystectomy Hysterectomy ENCOUNTER: Initial ACUITY: 1 month PAIN SCORE: 0/10 LOCATION: N/A IMAGE SERIES: 0 PROCEDURE : 1. Temporary central venous catheter removal. The prescribed catheter was removed intact and hemostasis was achieved with direct pressure. The sit e was dressed appropriately. The patient tolerated the procedure well. CONCLUSION: Uncomplicated catheter removal. Robles Corral MD on June 22, 2017 at 16:23 Board Certified Radiologist. This report was verified electronically.
[2017-06-22] MEDS ORDERED: METOPROLOL TARTRATE 5 MG/5 ML VIAL IV PUSH ONE (16:45)
[2017-06-22] MEDS ORDERED: DIGOXIN 0.5 MG/2 ML VIAL IV PUSH ONE (16:45)
--- NOTE | 2017-06-22 16:58 | RADRPT ---
EXAM DATE/TIME: 06/22/2017 16:22 [facility] COMPARISON: US ARM LEFT VENOUS DOPPLER, June 22, 2017, 16:01. INDICATIONS : Left AV fistula. MEDICAL HISTORY : Hypercholesterolemia. Hypertension. Chronic obstructive pulmonary disease. Stage IV kidney disease. D iabetes. SURGICAL HISTORY : Cholecystectomy. Appendectomy. Hysterectomy. Bilateral rotator cuff repair. Right knee replacement. C arpal tunnel release. ENCOUNTER: Initial ACUITY: 1 day PAIN SCORE: Non-responsive LOCATION: Left arm. CEPHALIC: ORIGIN: 2 mm MID-ARM: 1 mm ELBOW: Thrombosed FOREARM: Thrombosed WRIST: Non-visualized BASILIC: ORIGIN: 5 mm MID-ARM: 4 mm ELBOW: 5 mm ARTERIES: BRACHIAL: 2 mm ULNAR: 3 mm RADIAL: 2 mm VEINS: RADIAL: 1 mm ULNAR: 1 mm FINDINGS: Measurements of the arm veins (in mm) are listed above. CONCLUSION: 1. Vein mapping as above. Laci Lopez MD on June 22, 2017 at 16:56 Board Certified Radiologist. This report was verified electronically.
--- NOTE | 2017-06-22 17:16 | RADRPT ---
EXAM DATE/TIME: 06/22/2017 16:01 [facility] COMPARISON: No previous studies available for comparison. INDICATIONS : Left arm AV fistula placement. MEDICAL HISTORY : Hypercholesterolemia. Hypertension. Chronic obstructive pulmonary disease. Stage IV kidney disease. D iabetes. SURGICAL HISTORY : Cholecystectomy. Appendectomy. Hysterectomy. Bilateral rotator cuff repair. Right knee replacement. Carpal tunnel release. ENCOUNTER: Initial ACUITY: 1 day PAIN SCORE: Non-responsive LOCATION: Left arm. FINDINGS: There is deep venous thrombus within the left internal jugular vein. There is also thrombus within th e left cephalic vein at the antecubital fossa and proximal forearm. There is spontaneous flow documen james in the brachial, basilic, axillary, and subclavian veins. The vessels are compressible and augme ntation response is documented. No filling defects are seen. The flow is phasic with respiration. CONCLUSION: Deep venous thrombus within left internal jugular vein. Thrombus within the left ceph alic vein at the antecubital fossa and proximal forearm. Ritchie Dumont MD on June 22, 2017 at 17:12 Board Certified Radiologist. This report was verified electronically.
[2017-06-22] MEDS ORDERED: PILL SPLITTER OTHER PRN (18:00)
--- NOTE | 2017-06-22 18:27 | HHI.PR ---
Subjective Remarks 76 YOWF with VDRF,Ac renal Failure,DM, Met acidosis No Fever Extubated, on NC Alert awake feels weak, mild sob Breathing better has LGI bleed GI evaluating pt Objective Vital Signs Vital Signs Date Time Temp Pulse Resp B/P (MAP) Pulse Ox O2 Delivery O2 Flow Rate FiO2 06/22/17 16:45 112 06/22/17 16:30 106 14 121/60 (80) 93 06/22/17 16:30 106 06/22/17 16:20 110 06/22/17 16:20 110 16 121/73 (89) 93 06/22/17 16:15 116 06/22/17 16:15 116 13 92 06/22/17 16:02 98.7 122 16 119/65 (83) 92 06/22/17 16:02 122 06/22/17 16:00 122 06/22/17 16:00 122 15 92 06/22/17 16:00 122 06/22/17 15:48 126 17 111/63 (79) 87 06/22/17 15:48 126 06/22/17 15:00 121 06/22/17 15:00 117 06/22/17 14:47 118 17 112/60 (77) 95 06/22/17 14:47 118 06/22/17 14:45 118 06/22/17 14:32 122 06/22/17 14:32 122 20 140/77 (98) 96 06/22/17 14:30 126 06/22/17 14:16 118 18 151/78 (102) 95 06/22/17 14:16 118 06/22/17 14:16 109 06/22/17 14:15 122 06/22/17 14:11 126 20 134/74 (94) 94 06/22/17 14:11 126 06/22/17 14:11 126 20 134/74 (94) 94 06/22/17 14:07 126 134/74 06/22/17 14:01 124 06/22/17 14:01 124 15 95 06/22/17 14:00 122 06/22/17 14:00 122 14 95 06/22/17 14:00 122 14 95 06/22/17 13:46 128 14 147/61 (89) 95 06/22/17 13:45 122 15 95 06/22/17 13:39 126 18 131/67 (88) 94 06/22/17 13:38 134 22 148/89 (108) 93 06/22/17 13:30 124 14 119/66 (83) 96 06/22/17 13:25 126 15 116/67 (83) 96 06/22/17 13:20 130 14 121/56 (77) 96 06/22/17 13:15 134 16 108/50 (69) 97 06/22/17 13:15 134 16 97 06/22/17 13:14 129 108/50 06/22/17 13:10 130 13 93/63 (73) 97 06/22/17 13:05 124 14 112/72 (85) 96 06/22/17 13:00 132 14 133/81 (98) 97 06/22/17 12:55 122 13 96 06/22/17 12:54 130 13 136/58 (84) 97 06/22/17 12:50 132 13 96 06/22/17 12:49 132 14 136/71 (92) 97 06/22/17 12:49 136/71 (92) 06/22/17 12:45 132 15 97 06/22/17 12:45 132 15 97 06/22/17 12:44 126 14 144/58 (86) 97 06/22/17 12:43 129 136/57 06/22/17 12:40 126 19 98 06/22/17 12:39 134 14 136/57 (83) 97 06/22/17 12:35 126 13 96 06/22/17 12:34 130 15 110/60 (77) 96 06/22/17 12:30 128 20 96 06/22/17 12:29 136 22 123/69 (87) 96 06/22/17 12:25 140 23 94 06/22/17 12:24 142 31 78/53 (61) 94 06/22/17 12:20 140 21 93 06/22/17 12:19 136 16 138/68 (91) 95 06/22/17 12:19 136 16 138/68 (91) 95 06/22/17 12:15 130 14 96 06/22/17 12:14 136 17 134/62 (86) 95 06/22/17 12:14 136 17 134/62 (86) 95 06/22/17 12:10 134 17 95 06/22/17 12:09 97.7 136 18 119/68 (85) 95 06/22/17 12:09 136 18 119/68 (85) 95 06/22/17 12:05 118 14 96 06/22/17 12:05 118 14 96 06/22/17 12:04 122 14 98/55 (69) 96 06/22/17 12:04 122 14 98/55 (69) 96 06/22/17 12:00 122 14 94 06/22/17 12:00 138 06/22/17 11:59 116 15 109/52 (71) 94 06/22/17 11:56 122 14 116/57 (76) 95 06/22/17 11:54 120 15 135/51 (79) 94 06/22/17 11:50 138 14 96 06/22/17 11:49 136 14 137/53 (81) 95 06/22/17 11:44 144 15 147/72 (97) 97 06/22/17 11:39 140 13 133/70 (91) 96 06/22/17 11:35 138 12 96 06/22/17 11:34 144 19 138/61 (86) 96 06/22/17 11:29 140 13 116/64 (81) 95 06/22/17 11:24 138 14 106/63 (77) 95 06/22/17 11:24 138 14 106/63 (77) 95 06/22/17 11:20 136 12 95 06/22/17 11:20 136 12 95 06/22/17 11:19 134 13 128/66 (86) 95 06/22/17 11:15 140 14 110/59 (76) 96 06/22/17 11:10 142 12 95 06/22/17 11:00 150 15 143/62 (89) 96 06/22/17 10:55 136 21 98 06/22/17 10:51 144 21 144/65 (91) 96 06/22/17 10:50 140 16 96 17 10:46 98.9 06/22/17 10:45 155 121/69 (86) 17 10:45 144 17 121/69 (86) 97 06/22/17 10:40 142 18 97 06/22/17 10:35 144 18 98 06/22/17 10:30 146 17 111/65 (80) 97 06/22/17 10:30 146 17 111/65 (80) 97 06/22/17 10:25 142 17 97 06/22/17 10:20 146 16 96 06/22/17 10:15 140 17 141/70 (93) 96 06/22/17 10:15 140 17 141/70 (93) 96 06/22/17 10:10 152 17 96 06/22/17 10:05 146 17 96 06/22/17 10:00 144 18 137/51 (79) 96 06/22/17 10:00 144 18 137/51 (79) 96 06/22/17 09:45 146 18 114/62 (79) 96 06/22/17 09:33 144 17 132/68 (89) 97 06/22/17 09:30 142 19 102/60 (74) 97 06/22/17 09:15 84 16 163/62 (95) 98 06/22/17 09:00 86 16 163/65 (97) 97 06/22/17 09:00 86 16 163/65 (97) 97 06/22/17 08:45 90 18 151/59 (89) 96 06/22/17 08:30 88 19 147/66 (93) 96 06/22/17 08:15 90 17 139/62 (87) 94 06/22/17 08:00 78 06/22/17 08:00 80 19 159/77 (104) 97 06/22/17 08:00 2.00 06/22/17 07:48 96 Nasal Cannula 2.00 06/22/17 07:00 99.0 80 18 162/71 (101) 96 06/22/17 06:00 75 06/22/17 06:00 78 19 180/91 (120) 96 06/22/17 05:00 76 17 171/80 (110) 96 06/22/17 04:00 82 06/22/17 04:00 98.4 84 17 189/83 (118) 96 06/22/17 03:00 82 20 171/60 (97) 96 06/22/17 02:28 90 22 172/70 (104) 96 06/22/17 02:00 90 16 190/55 (100) 97 06/22/17 02:00 90 16 190/55 (100) 97 06/22/17 02:00 96 06/22/17 01:00 84 22 161/58 (92) 95 06/22/17 01:00 84 22 161/58 (92) 95 06/22/17 00:24 88 27 173/70 (104) 96 06/22/17 00:00 98.4 84 20 185/59 (101) 97 06/22/17 00:00 84 20 185/59 (101) 97 06/22/17 00:00 87 06/21/17 23:00 82 21 150/45 (80) 95 06/21/17 22:29 80 19 167/52 (90) 96 06/21/17 22:00 80 06/21/17 21:00 82 21 179/75 (109) 94 06/21/17 20:35 95 Nasal Cannula 2.00 06/21/17 20:21 98.6 84 33 180/101 (127) 93 06/21/17 20:00 82 06/21/17 19:00 86 26 181/62 (101) 92 06/21/17 19:00 95 Nasal Cannula 2.00 I/O 06/21/17 06/21/17 06/21/17 06/22/17 06/22/17 06/22/17 07:00 15:00 23:00 07:00 15:00 23:00 Intake Total 620 ml 60 ml Output Total 0 ml 0 ml 0 ml 2500 ml Balance 0 ml 620 ml 60 ml -2500 ml Intake Oral 620 ml 60 ml Output Urine Total 0 ml 0 ml 0 ml Hemodialysis 2500 ml # Bowel Movements 4 2 6 Result Diagram: 06/22/17 0353 06/22/17 0353 Objective Remarks GENERAL: WBWN WF, On NC SKIN: Warm and dry. HEAD: Normocephalic. EYES: No scleral icterus. No injection or drainage. NECK: Supple, trachea midline. No JVD or lymphadenopathy. CARDIOVASCULAR: Regular rate and rhythm without murmurs, gallops, or rubs. RESPIRATORY: Breath sounds equal bilaterally. No accessory muscle use. GASTROINTESTINAL: Abdomen soft, non-tender, nondistended. MUSCULOSKELETAL: No cyanosis, or edema. BACK: Nontender without obvious deformity. No CVA tenderness. A/P Assessment and Plan VDRF, s/p Extubation COPD Ac renal Failure DM Nicotine use AF with RVR, converted to NSR PLAN: Aerosol nebs Supplement 02, keep sat 88-92% Monitor BS Caitlin qid. Solumedrol 40 mg q 12 hrs CPAP prn Monitor H/H Jac Hammonds MD Jun 22, 2017 18:27
[2017-06-22] MEDS: METOPROLOL TARTRATE 25 MG TAB PO SCH ×2 (18:47→22:31)
[2017-06-22 19:38] LABS: HEMATOCRIT 20.8 % (35.0-46.0)
[2017-06-22] MEDS: ATORVASTATIN 40 MG TAB PO SCH (20:24)
[2017-06-22 20:34] LABS: APTT (PATIENT) 38.1 SEC (24.3-30.1)
[2017-06-23] VITALS (69 sets, daily range): BP systolic 70–164; BP diastolic 55–91; PULSE 62–102; RESP 12–35; TEMP 97.3–98.9; O2SAT 88–97
[2017-06-23] MEDS: RESP: ALBUTEROL 2.5 MG/IPRATROPIUM 0.5 MG NEB (SCH) NEB ×5 (03:35→20:01)
[2017-06-23] MEDS: CHLORHEXIDINE GLUCONATE 2 % 1 PACK (2 CLOTHS) TOP SCH (04:00)
[2017-06-23] MEDS: hydrALAZINE HCL 50 MG TAB PO SCH ×3 (05:38→20:19)
[2017-06-23] MEDS: methylPREDNISolone SOD SUCC 40 MG/1 ML VIAL IV PUSH SCH ×3 (05:39→20:19)
[2017-06-23] MEDS: METOPROLOL TARTRATE 25 MG TAB PO SCH ×3 (05:39→20:19)
[2017-06-23] MEDS: SODIUM CHLORIDE 0.9% FLUSH 10 ML FLUSH IV FLUSH PRN (05:39)
[2017-06-23 06:51] LABS: AUTOMATED NEUTROPHIL # 9.8 TH/MM3 (1.8-7.7); BASOPHIL % 0.1 % (0.0-2.0); EOSINOPHIL % 0.2 % (0.0-4.0); HEMATOCRIT 26.7 % (35.0-46.0); HEMO FLAGS DIFF FINAL; LYMPH % 2.6 % (9.0-44.0); LYMPHOCYTE # 0.3 TH/MM3 (1.0-4.8); MEAN CELL VOLUME 83.6 FL (80.0-100.0); MEAN CORPUSCULAR HGB CONC 33.5 % (32.0-36.0); NEUT % 93.1 % (16.0-70.0); PLATELET COUNT 101 TH/MM3 (150-450); RED BLOOD COUNT 3.19 MIL/MM3 (4.00-5.30); RED CELL DISTRIBUTION WIDTH 17.8 % (11.6-17.2); WHITE BLOOD COUNT 10.5 TH/MM3 (4.0-11.0)
[2017-06-23 06:59] LABS: POTASSIUM 4.8 MEQ/L (3.5-5.1)
[2017-06-23 07:02] LABS: BICARBONATE 25.1 MEQ/L (21.0-32.0); MAGNESIUM 2.6 MG/DL (1.5-2.5)
[2017-06-23 07:54] LABS: INTERNATIONAL NORMALIZED RATIO 1.4 RATIO; PROTHROMBIN TIME - PATIENT 15.9 SEC (9.8-11.6)
--- NOTE | 2017-06-23 08:26 | HHI.GIFU ---
Subjective Remarks Patient had significant amount of black stool with melena, drop her hemoglobin significantly overnight despite giving her packed RBC, she had an upper endoscopy which show gastropathy before and a colonoscopy which showed 2 ulcers that were cauterized by Dr. Moseley Objective Vitals I&O Vital Signs Date Time Temp Pulse Resp B/P (MAP) Pulse Ox O2 Delivery O2 Flow Rate FiO2 06/23/17 07:16 93 Nasal Cannula 3.00 06/23/17 06:15 74 20 145/67 (93) 94 06/23/17 06:00 81 06/23/17 06:00 88 17 148/89 (108) 91 06/23/17 05:47 90 17 134/71 (92) 91 06/23/17 05:45 86 16 75/56 (62) 91 06/23/17 05:30 90 16 152/60 (90) 92 06/23/17 05:15 86 15 140/72 (94) 92 06/23/17 04:15 96 17 152/82 (105) 92 06/23/17 04:00 88 06/23/17 04:00 98.8 90 16 154/71 (98) 92 06/23/17 03:45 90 17 140/74 (96) 94 06/23/17 03:30 88 16 130/69 (89) 93 06/23/17 03:16 98 154/67 (96) 91 06/23/17 03:00 98 29 122/77 (92) 88 06/23/17 02:45 90 16 146/77 (100) 91 06/23/17 02:15 88 18 151/60 (90) 91 06/23/17 02:00 90 15 122/83 (96) 91 06/23/17 02:00 102 06/23/17 01:59 98.1 80 19 146/77 91 06/23/17 01:51 84 17 131/62 (85) 91 06/23/17 01:46 92 19 125/68 (87) 91 06/23/17 01:44 98.8 88 20 133/66 91 06/23/17 01:41 90 18 133/66 (88) 93 06/23/17 01:36 84 15 119/68 (85) 91 06/23/17 01:31 84 14 122/91 (101) 92 06/23/17 01:26 86 14 113/59 (77) 92 06/23/17 01:21 80 14 126/59 (81) 91 06/23/17 01:16 82 15 119/64 (82) 92 06/23/17 01:11 86 15 132/55 (80) 92 06/23/17 01:06 84 15 120/72 (88) 92 06/23/17 01:03 80 15 123/62 (82) 93 06/23/17 01:01 82 15 70/55 (60) 92 06/23/17 01:00 88 15 92 06/23/17 00:26 82 14 124/59 (80) 95 06/23/17 00:21 84 13 117/63 (81) 96 06/23/17 00:16 82 14 92/57 (69) 97 06/23/17 00:11 88 13 145/75 (98) 97 06/23/17 00:06 84 14 135/62 (86) 97 06/23/17 00:01 98.1 84 14 138/63 (88) 96 06/23/17 00:00 92 06/22/17 23:56 80 15 140/61 (87) 94 06/22/17 23:51 80 15 127/62 (83) 95 06/22/17 23:46 86 18 138/70 (92) 96 06/22/17 23:41 84 14 137/71 (93) 97 06/22/17 23:36 82 14 135/66 (89) 97 06/22/17 23:16 98.1 102 19 137/71 95 06/22/17 23:06 88 20 119/65 (83) 94 06/22/17 23:01 90 19 133/79 (97) 95 06/22/17 23:01 90 19 133/79 (97) 95 06/22/17 23:00 105 06/22/17 23:00 87 06/22/17 22:56 90 18 134/72 (92) 94 06/22/17 22:55 97.6 87 15 134/72 94 06/22/17 22:51 98 19 112/75 (87) 92 06/22/17 22:46 98 27 126/63 (84) 90 06/22/17 22:41 94 19 116/60 (78) 93 06/22/17 22:33 105 116/52 06/22/17 22:06 92 14 115/50 (71) 95 06/22/17 22:01 98 14 120/64 (82) 94 06/22/17 22:00 97 06/22/17 21:56 98 14 126/69 (88) 93 06/22/17 21:51 92 14 125/60 (81) 94 06/22/17 21:46 98 14 115/69 (84) 93 06/22/17 21:41 92 14 100/49 (66) 93 06/22/17 21:36 98 15 128/70 (89) 92 06/22/17 21:31 92 17 103/46 (65) 93 06/22/17 21:26 94 14 131/52 (78) 93 06/22/17 21:21 88 16 127/47 (73) 94 06/22/17 21:16 88 14 147/47 (80) 93 06/22/17 21:11 86 17 138/54 (82) 93 06/22/17 21:06 88 15 123/53 (76) 93 06/22/17 21:01 94 16 106/49 (68) 93 06/22/17 21:00 96 23 93 06/22/17 20:11 86 21 138/49 (78) 95 06/22/17 20:06 84 13 135/72 (93) 96 06/22/17 20:01 98.1 92 19 143/53 (83) 97 06/22/17 20:00 87 06/22/17 19:56 84 14 131/49 (76) 98 06/22/17 19:51 84 13 132/61 (84) 96 06/22/17 19:50 95 Nasal Cannula 3.00 06/22/17 19:46 78 13 142/46 (78) 96 06/22/17 19:41 82 14 130/60 (83) 96 06/22/17 19:36 84 14 126/60 (82) 96 06/22/17 19:31 88 13 124/67 (86) 96 06/22/17 19:26 82 18 152/55 (87) 95 06/22/17 19:21 86 17 128/60 (82) 95 06/22/17 19:16 84 22 131/55 (80) 95 06/22/17 19:15 82 15 95 06/22/17 19:11 84 22 140/51 (80) 95 06/22/17 19:06 84 18 125/53 (77) 95 06/22/17 19:01 84 15 111/52 (71) 95 06/22/17 19:00 94 Nasal Cannula 2.00 06/22/17 19:00 82 17 95 17 18:16 90 17 137/47 (77) 94 17 18:15 88 16 94 17 18:11 80 14 127/53 (77) 93 17 18:06 86 14 114/63 (80) 93 17 18:01 82 14 128/59 (82) 93 17 18:00 82 14 93 17 18:00 92 17 17:56 86 14 113/52 (72) 93 06/22/17 17:51 84 14 121/54 (76) 94 06/22/17 17:46 86 13 131/60 (83) 93 17 17:45 82 13 93 17 17:41 88 14 126/46 (72) 93 17 17:36 90 14 103/45 (64) 93 17 17:30 84 22 93 17 17:29 88 24 114/46 (68) 94 17 17:28 86 22 80/49 (59) 93 17 17:27 84 15 104/48 (66) 93 06/22/17 17:15 106 13 116/70 (85) 93 17 17:00 108 13 104/71 (82) 94 17 16:45 112 14 122/44 (70) 93 16/17 16:45 112 16/17 16:30 106 14 121/60 (80) 93 16/17 16:30 106 16/17 16:30 106 14 121/60 (80) 93 16/17 16:20 110 1617 16:20 110 16 121/73 (89) 93 16/17 16:15 116 1617 16:15 116 13 92 1617 16:02 98.7 122 16 119/65 (83) 92 06/22/17 16:02 122 06/22/17 16:00 122 06/22/17 16:00 122 15 92 06/22/17 16:00 122 06/22/17 15:48 126 17 111/63 (79) 87 06/22/17 15:48 126 06/22/17 15:00 121 06/22/17 15:00 117 06/22/17 14:47 118 17 112/60 (77) 95 06/22/17 14:47 118 06/22/17 14:45 118 06/22/17 14:32 122 06/22/17 14:32 122 20 140/77 (98) 96 06/22/17 14:30 126 06/22/17 14:16 118 18 151/78 (102) 95 06/22/17 14:16 118 06/22/17 14:16 109 06/22/17 14:15 122 06/22/17 14:11 126 20 134/74 (94) 94 06/22/17 14:11 126 06/22/17 14:11 126 20 134/74 (94) 94 06/22/17 14:07 126 134/74 06/22/17 14:01 124 06/22/17 14:01 124 15 95 06/22/17 14:00 122 06/22/17 14:00 122 14 95 06/22/17 14:00 122 14 95 06/22/17 13:46 128 14 147/61 (89) 95 06/22/17 13:45 122 15 95 06/22/17 13:39 126 18 131/67 (88) 94 06/22/17 13:38 134 22 148/89 (108) 93 06/22/17 13:30 124 14 119/66 (83) 96 06/22/17 13:25 126 15 116/67 (83) 96 06/22/17 13:20 130 14 121/56 (77) 96 06/22/17 13:15 134 16 108/50 (69) 97 06/22/17 13:15 134 16 97 06/22/17 13:14 129 108/50 06/22/17 13:10 130 13 93/63 (73) 97 06/22/17 13:05 124 14 112/72 (85) 96 06/22/17 13:00 132 14 133/81 (98) 97 06/22/17 12:55 122 13 96 06/22/17 12:54 130 13 136/58 (84) 97 06/22/17 12:50 132 13 96 06/22/17 12:49 132 14 136/71 (92) 97 06/22/17 12:49 136/71 (92) 06/22/17 12:45 132 15 97 06/22/17 12:45 132 15 97 06/22/17 12:44 126 14 144/58 (86) 97 06/22/17 12:43 129 136/57 06/22/17 12:40 126 19 98 06/22/17 12:39 134 14 136/57 (83) 97 06/22/17 12:35 126 13 96 06/22/17 12:34 130 15 110/60 (77) 96 06/22/17 12:30 128 20 96 06/22/17 12:29 136 22 123/69 (87) 96 06/22/17 12:25 140 23 94 06/22/17 12:24 142 31 78/53 (61) 94 06/22/17 12:20 140 21 93 06/22/17 12:19 136 16 138/68 (91) 95 06/22/17 12:19 136 16 138/68 (91) 95 06/22/17 12:15 130 14 96 06/22/17 12:14 136 17 134/62 (86) 95 06/22/17 12:14 136 17 134/62 (86) 95 06/22/17 12:10 134 17 95 06/22/17 12:09 97.7 136 18 119/68 (85) 95 06/22/17 12:09 136 18 119/68 (85) 95 06/22/17 12:05 118 14 96 06/22/17 12:05 118 14 96 06/22/17 12:04 122 14 98/55 (69) 96 06/22/17 12:04 122 14 98/55 (69) 96 06/22/17 12:00 122 14 94 06/22/17 12:00 138 06/22/17 11:59 116 15 109/52 (71) 94 06/22/17 11:56 122 14 116/57 (76) 95 06/22/17 11:54 120 15 135/51 (79) 94 06/22/17 11:50 138 14 96 06/22/17 11:49 136 14 137/53 (81) 95 06/22/17 11:44 144 15 147/72 (97) 97 06/22/17 11:39 140 13 133/70 (91) 96 06/22/17 11:35 138 12 96 06/22/17 11:34 144 19 138/61 (86) 96 06/22/17 11:29 140 13 116/64 (81) 95 06/22/17 11:24 138 14 106/63 (77) 95 06/22/17 11:24 138 14 106/63 (77) 95 06/22/17 11:20 136 12 95 06/22/17 11:20 136 12 95 06/22/17 11:19 134 13 128/66 (86) 95 06/22/17 11:15 140 14 110/59 (76) 96 06/22/17 11:10 142 12 95 06/22/17 11:00 150 15 143/62 (89) 96 06/22/17 10:55 136 21 98 06/22/17 10:51 144 21 144/65 (91) 96 06/22/17 10:50 140 16 96 06/22/17 10:46 98.9 06/22/17 10:45 155 121/69 (86) 06/22/17 10:45 144 17 121/69 (86) 97 06/22/17 10:40 142 18 97 06/22/17 10:35 144 18 98 06/22/17 10:30 146 17 111/65 (80) 97 06/22/17 10:30 146 17 111/65 (80) 97 06/22/17 10:25 142 17 97 17 10:20 146 16 96 17 10:15 140 17 141/70 (93) 96 17 10:15 140 17 141/70 (93) 96 06/22/17 10:10 152 17 96 17 10:05 146 17 96 17 10:00 144 18 137/51 (79) 96 17 10:00 144 18 137/51 (79) 96 06/22/17 09:45 146 18 114/62 (79) 96 06/22/17 09:33 144 17 132/68 (89) 97 06/22/17 09:30 142 19 102/60 (74) 97 06/22/17 09:15 84 16 163/62 (95) 98 06/22/17 09:00 86 16 163/65 (97) 97 06/22/17 09:00 86 16 163/65 (97) 97 06/22/17 08:45 90 18 151/59 (89) 96 06/22/17 08:30 88 19 147/66 (93) 96 I/O 06/22/17 06/22/17 06/22/17 06/23/17 06/23/17 06/23/17 07:00 15:00 23:00 07:00 15:00 23:00 Intake Total 60 ml 25 ml 605 ml Output Total 0 ml 2500 ml 800 ml Balance 60 ml -2500 ml 25 ml -195 ml Intake Oral 60 ml 30 ml Packed Cells 500 ml Blood Product IV Normal Saline Flush 25 ml 75 ml Output Urine Total 0 ml Stool Total 800 ml Hemodialysis 2500 ml # Voids 0 # Bowel Movements 6 2 8 Laboratory Laboratory Tests Test 06/22/17 19:29 06/22/17 20:15 06/23/17 06:30 06/23/17 07:30 Hemoglobin 6.6 8.9 Hematocrit 20.8 26.7 Activated Partial Thromboplast Time 38.1 White Blood Count 10.5 Red Blood Count 3.19 Mean Corpuscular Volume 83.6 Mean Corpuscular Hemoglobin 28.0 Mean Corpuscular Hemoglobin Concent 33.5 Red Cell Distribution Width 17.8 Platelet Count 101 Mean Platelet Volume 8.5 Neutrophils (%) (Auto) 93.1 Lymphocytes (%) (Auto) 2.6 Monocytes (%) (Auto) 4.0 Eosinophils (%) (Auto) 0.2 Basophils (%) (Auto) 0.1 Neutrophils # (Auto) 9.8 Lymphocytes # (Auto) 0.3 Monocytes # (Auto) 0.4 Eosinophils # (Auto) 0.0 Basophils # (Auto) 0.0 CBC Comment DIFF FINAL Differential Comment Blood Urea Nitrogen 103 Creatinine 6.00 Random Glucose 294 Calcium Level 8.5 Phosphorus Level 8.3 Magnesium Level 2.6 Sodium Level 139 Potassium Level 4.8 Chloride Level 99 Carbon Dioxide Level 25.1 Anion Gap 15 Estimat Glomerular Filtration Rate 7 Prothrombin Time 15.9 Prothromb Time International Ratio 1.4 Date/Time Source Procedure Growth Status 06/12/17 12:45 Blood Peripheral Aerobic Blood Culture - Final NO GROWTH IN 5 DAYS Complete 06/12/17 12:45 Blood Peripheral Anaerobic Blood Culture - Final NO GROWTH IN 5 DAYS Complete 06/13/17 18:31 Stool Stool Stool Occult Blood (MELISSA) - Final HEMOCCULT POSITIVE Complete 06/15/17 06:50 Nasal Aspirate Influenza Types A,B Antigen (MELISSA) - Final NEGATIVE FOR FLU A AND B ANTIGEN.... Complete 06/11/17 20:33 Urine Catheterized Urine Urine Culture - Final Lacey Glabrata Lacey Albicans Complete Physical Exam HEENT: Pupils round and reactive to light; normocephalic; atraumatic; no jaundice. Throat is clear. She generally weak NECK: Neck is supple, no JVD, no lymphadenopathy. CHEST: Chest is clear to auscultation and percussion. CARDIAC: Regular rate and rhythm with no murmur gallop or rubs. ABDOMEN: Soft, nondistended, nontender; no hepatosplenomegaly; bowel sounds are present in all four quadrants. EXTREMITIES: No clubbing, cyanosis, or edema. Assessment and Plan Plan Patient has COPD seems to be improving, extubated followed by pulmonary She had anemia and rectal bleeding yesterday she undergone upper endoscopy and a colonoscopy by Dr. Moseley, upper endoscopy showed gastritis and small hiatal hernia, colonoscopy showed leading ulcer in the cecum that was treated by clips currently hemoglobin stable no active bleeding Recommend advance diet as tolerated, monitor hemoglobin with packed RBC as needed We will follow up as needed 06/23/2017 I was asked to see the patient again because this seems like she has active bleeding again with black stool melena and drop in her hemoglobin general fatigue I order stat INR which was 1.4 platelets above 100 she was given 2 units of packed RBC in the last 12 hours hemoglobin 8.4 Active the patient for urgent upper endoscopy Finding on the endoscopy Severe gastropathy with significant areas and they fundus of the stomach oozing blood this was cauterized by heat with reasonable control of the bleeding but there was significant surface area that has potential for rebleeding I recommend giving patient units of FFP is to improve her coagulopathy status Monitor H&H with packed RBC as needed Continue PPI Beta abe as soon as the patient blood pressure is stable to try to juice to portal hypertension May give patient clear liquid Maria E Guerrero MD Jun 23, 2017 08:26
--- NOTE | 2017-06-23 08:30 | PD.PROCEDR ---
GI Procedure PROCEDURE PERFORMED Upper endoscopy with bleeding control INDICATION FOR PROCEDURE Active GI bleed with melena and black stool PROCEDURE: The procedure, risks and benefits were discussed with Ms. Wilkinson and informed consent was obtained. Anesthesia sedated her with Diprivan. She was placed in the left lateral decubitus position. EGD: The Pentax videoscope was introduced through the oropharynx and advanced to the second portion of the duodenum under direct visualization. Retroflexion was performed in the stomach, there was significant gastropathy in the fundus of the stomach that was actively oozing blood from multiple sites, this was ablated with heat to try to control and minimize the bleed, I was able to stop the bleeding at this time. FINDINGS: Severe gastropathy with significant areas and they fundus of the stomach oozing blood this was cauterized by heat with reasonable control of the bleeding but there was significant surface area that has potential for rebleeding Patient has gastritis in the antrum also ESTIMATED BLOOD LOSS: 10 cc SPECIMENS REMOVED: None COMPLICATIONS: None PLAN: giving patient units of FFP is to improve her coagulopathy status Monitor H&H with packed RBC as needed Continue PPI Beta abe as soon as the patient blood pressure is stable to try to juice to portal hypertension May give patient clear liquid Maria E Guerrero MD Jun 23, 2017 08:30
[2017-06-23] MEDS: SODIUM CHLORIDE 0.9% FLUSH 10 ML FLUSH IV FLUSH SCH ×3 (09:00→20:14)
[2017-06-23] MEDS: CALCIUM ACETATE 667 MG CAP PO SCH ×3 (09:00→18:00)
[2017-06-23] MEDS: INSULIN DETEMIR 100 UNITS/ML VIAL SQ SCH ×2 (09:00→20:15)
[2017-06-23] MEDS ORDERED: SODIUM CHLORID 0.9% 500 ML BAG IV ONE (09:16)
[2017-06-23] MEDS ORDERED: PROPOFOL 200 MG/20 ML AMP IV ONE (09:16)
--- NOTE | 2017-06-23 09:43 | HHI.HCPN ---
Previous palliative care follow-ups confirm Ms. Wilkinson's desire for ongoing aggressive care short of NO CODE. CM working to establish dialysis chair time and schedule. Spoke with CM Claudia to request COMMUNITY DNR ORDER (yellow form) completion prior to discharging from the hospital. Palliative care will be available as needed throughout hospitalization. Julee Reyes, EDGING CATCHER Jun 23, 2017 09:43
[2017-06-23] MEDS: ISOSORBIDE MONONITRATE 30 MG TAB PO SCH (10:57)
[2017-06-23] MEDS: BUDESONIDE-FORMOTEROL 160/4.5 MCG INHALER INH SCH ×3 (10:58→20:40)
[2017-06-23] MEDS: INSULIN NovoLIN REGULAR SUPPLEMENTAL SCALE SQ SCH ×4 (10:58→20:15)
[2017-06-23] MEDS: PANTOPRAZOLE SOD 40 MG DELAYED RELEASE TAB PO SCH ×2 (10:58→20:14)
[2017-06-23] MEDS: DILTIAZEM-CD 240 MG CAP ER PO SCH (10:58)
[2017-06-23] MEDS: FERROUS SULFATE 325 MG (65 MG ELEMENTAL IRON) TAB PO SCH (10:58)
[2017-06-23] MEDS: VITAMIN B CMPLX/VITC/FOLIC AC CAP PO SCH (10:58)
--- NOTE | 2017-06-23 14:27 | HHI.PR ---
Subjective Remarks Significant melena overnight. Status post repeat upper endoscopy this morning which revealed gastropathy with gastritis and some area of losing blood. This was cauterized. Patient reports she is doing okay. She is tolerating the clear liquid diet currently Discussed with RN. Objective Vitals Vital Signs Date Time Temp Pulse Resp B/P (MAP) Pulse Ox O2 Delivery O2 Flow Rate FiO2 06/23/17 14:13 98.2 68 15 162/71 95 06/23/17 13:00 70 22 155/67 (96) 92 06/23/17 12:48 97.3 71 17 151/70 93 06/23/17 12:47 74 19 151/70 (97) 92 06/23/17 12:30 72 18 150/62 (91) 93 06/23/17 12:22 98.3 72 15 140/69 93 06/23/17 12:00 72 24 140/69 (92) 93 06/23/17 12:00 72 06/23/17 11:30 68 23 147/67 (93) 95 06/23/17 11:00 70 27 153/70 (97) 96 06/23/17 10:30 64 14 156/67 (96) 95 06/23/17 10:00 72 06/23/17 10:00 72 26 161/89 (113) 92 06/23/17 09:30 62 35 154/70 (98) 93 06/23/17 09:00 64 06/23/17 09:00 62 31 164/78 (106) 93 06/23/17 08:30 80 26 146/90 (108) 91 06/23/17 08:00 94 Nasal Cannula 2.00 06/23/17 07:20 74 06/23/17 07:16 93 Nasal Cannula 3.00 06/23/17 07:15 97.9 78 14 147/67 (93) 93 06/23/17 06:15 74 20 145/67 (93) 94 06/23/17 06:00 81 06/23/17 06:00 88 17 148/89 (108) 91 06/23/17 05:47 90 17 134/71 (92) 91 06/23/17 05:45 86 16 75/56 (62) 91 06/23/17 05:30 90 16 152/60 (90) 92 06/23/17 05:15 86 15 140/72 (94) 92 06/23/17 04:15 96 17 152/82 (105) 92 06/23/17 04:00 88 06/23/17 04:00 98.8 90 16 154/71 (98) 92 06/23/17 03:45 90 17 140/74 (96) 94 06/23/17 03:30 88 16 130/69 (89) 93 06/23/17 03:16 98 154/67 (96) 91 06/23/17 03:00 98 29 122/77 (92) 88 06/23/17 02:45 90 16 146/77 (100) 91 06/23/17 02:15 88 18 151/60 (90) 91 06/23/17 02:00 90 15 122/83 (96) 91 06/23/17 02:00 102 06/23/17 01:59 98.1 80 19 146/77 91 06/23/17 01:51 84 17 131/62 (85) 91 06/23/17 01:46 92 19 125/68 (87) 91 06/23/17 01:44 98.8 88 20 133/66 91 06/23/17 01:41 90 18 133/66 (88) 93 06/23/17 01:36 84 15 119/68 (85) 91 06/23/17 01:31 84 14 122/91 (101) 92 06/23/17 01:26 86 14 113/59 (77) 92 06/23/17 01:21 80 14 126/59 (81) 91 06/23/17 01:16 82 15 119/64 (82) 92 06/23/17 01:11 86 15 132/55 (80) 92 06/23/17 01:06 84 15 120/72 (88) 92 06/23/17 01:03 80 15 123/62 (82) 93 06/23/17 01:01 82 15 70/55 (60) 92 06/23/17 01:00 88 15 92 06/23/17 00:26 82 14 124/59 (80) 95 06/23/17 00:21 84 13 117/63 (81) 96 06/23/17 00:16 82 14 92/57 (69) 97 06/23/17 00:11 88 13 145/75 (98) 97 06/23/17 00:06 84 14 135/62 (86) 97 06/23/17 00:01 98.1 84 14 138/63 (88) 96 06/23/17 00:00 92 06/22/17 23:56 80 15 140/61 (87) 94 06/22/17 23:51 80 15 127/62 (83) 95 06/22/17 23:46 86 18 138/70 (92) 96 06/22/17 23:41 84 14 137/71 (93) 97 06/22/17 23:36 82 14 135/66 (89) 97 06/22/17 23:16 98.1 102 19 137/71 95 06/22/17 23:06 88 20 119/65 (83) 94 06/22/17 23:01 90 19 133/79 (97) 95 06/22/17 23:01 90 19 133/79 (97) 95 06/22/17 23:00 105 06/22/17 23:00 87 06/22/17 22:56 90 18 134/72 (92) 94 06/22/17 22:55 97.6 87 15 134/72 94 06/22/17 22:51 98 19 112/75 (87) 92 06/22/17 22:46 98 27 126/63 (84) 90 06/22/17 22:41 94 19 116/60 (78) 93 06/22/17 22:33 105 116/52 06/22/17 22:06 92 14 115/50 (71) 95 06/22/17 22:01 98 14 120/64 (82) 94 06/22/17 22:00 97 06/22/17 21:56 98 14 126/69 (88) 93 06/22/17 21:51 92 14 125/60 (81) 94 06/22/17 21:46 98 14 115/69 (84) 93 06/22/17 21:41 92 14 100/49 (66) 93 06/22/17 21:36 98 15 128/70 (89) 92 06/22/17 21:31 92 17 103/46 (65) 93 06/22/17 21:26 94 14 131/52 (78) 93 06/22/17 21:21 88 16 127/47 (73) 94 06/22/17 21:16 88 14 147/47 (80) 93 06/22/17 21:11 86 17 138/54 (82) 93 06/22/17 21:06 88 15 123/53 (76) 93 06/22/17 21:01 94 16 106/49 (68) 93 06/22/17 21:00 96 23 93 06/22/17 20:11 86 21 138/49 (78) 95 06/22/17 20:06 84 13 135/72 (93) 96 06/22/17 20:01 98.1 92 19 143/53 (83) 97 06/22/17 20:00 87 06/22/17 19:56 84 14 131/49 (76) 98 06/22/17 19:51 84 13 132/61 (84) 96 06/22/17 19:50 95 Nasal Cannula 3.00 06/22/17 19:46 78 13 142/46 (78) 96 06/22/17 19:41 82 14 130/60 (83) 96 06/22/17 19:36 84 14 126/60 (82) 96 06/22/17 19:31 88 13 124/67 (86) 96 06/22/17 19:26 82 18 152/55 (87) 95 06/22/17 19:21 86 17 128/60 (82) 95 06/22/17 19:16 84 22 131/55 (80) 95 06/22/17 19:15 82 15 95 06/22/17 19:11 84 22 140/51 (80) 95 06/22/17 19:06 84 18 125/53 (77) 95 06/22/17 19:01 84 15 111/52 (71) 95 06/22/17 19:00 94 Nasal Cannula 2.00 06/22/17 19:00 82 17 95 06/22/17 18:16 90 17 137/47 (77) 94 06/22/17 18:15 88 16 94 06/22/17 18:11 80 14 127/53 (77) 93 06/22/17 18:06 86 14 114/63 (80) 93 06/22/17 18:01 82 14 128/59 (82) 93 06/22/17 18:00 82 14 93 06/22/17 18:00 92 06/22/17 17:56 86 14 113/52 (72) 93 1617 17:51 84 14 121/54 (76) 94 1617 17:46 86 13 131/60 (83) 93 1617 17:45 82 13 93 16/17 17:41 88 14 126/46 (72) 93 1617 17:36 90 14 103/45 (64) 93 1617 17:30 84 22 93 1617 17:29 88 24 114/46 (68) 94 1617 17:28 86 22 80/49 (59) 93 1617 17:27 84 15 104/48 (66) 93 1617 17:15 106 13 116/70 (85) 93 06/22/17 17:00 108 13 104/71 (82) 94 17 16:45 112 14 122/44 (70) 93 17 16:45 112 17 16:30 106 14 121/60 (80) 93 17 16:30 106 17 16:30 106 14 121/60 (80) 93 17 16:20 110 06/22/17 16:20 110 16 121/73 (89) 93 06/22/17 16:15 116 06/22/17 16:15 116 13 92 06/22/17 16:02 98.7 122 16 119/65 (83) 92 06/22/17 16:02 122 06/22/17 16:00 122 06/22/17 16:00 122 15 92 06/22/17 16:00 122 06/22/17 15:48 126 17 111/63 (79) 87 06/22/17 15:48 126 06/22/17 15:00 121 06/22/17 15:00 117 06/22/17 14:47 118 17 112/60 (77) 95 06/22/17 14:47 118 06/22/17 14:45 118 06/22/17 14:32 122 06/22/17 14:32 122 20 140/77 (98) 96 06/22/17 14:30 126 I/O 06/22/1706/22/06/22/06/23/17 06/23/17 06/23/17 07:00 15:00 23:00 07:00 15:00 23:00 Intake Total 60 ml 25 ml 605 ml 402 ml Output Total 0 ml 2500 ml 800 ml Balance 60 ml -2500 ml 25 ml -195 ml 402 ml Intake Oral 60 ml 30 ml Packed Cells 500 ml FFP 327 ml Blood Product IV Normal Saline Flush 25 ml 75 ml 50 ml Other 25 ml Output Urine Total 0 ml Stool Total 800 ml Hemodialysis 2500 ml # Voids 0 # Bowel Movements 6 2 8 Result Diagram: 06/23/1762906/23/17629 Objective Remarks GENERAL: Elderly female, appears frail CARDIOVASCULAR: Normal rate and irregular rhythm without significant murmurs. RESPIRATORY: Good respiratory efforts. Breath sounds equal and clear to auscultation bilaterally. GASTROINTESTINAL: Abdomen soft, non-tender, non-distended. Normal active bowel sounds MUSCULOSKELETAL: Left upper extremity has multiple nodules around the antecubital area. NEURO: Alert & Oriented x4 to person, place, time, situation. Moves all ext x4 PSYCH: Appropriate mood and affect. Date of Insertion: Jun 12, 2017 Line: Central Venous Catheter Side: Left Location: Internal, Jugular A/P Problem List: (1) Acute renal failure ICD Code: N17.9 - Acute kidney failure, unspecified Status: Acute (2) Community acquired pneumonia ICD Code: J18.9 - Pneumonia, unspecified organism Status: Resolved (3) Anxiety ICD Code: F41.9 - Anxiety disorder, unspecified Status: Chronic (4) COPD exacerbation ICD Code: J44.1 - Chronic obstructive pulmonary disease with (acute) exacerbation Status: Acute (5) Paroxysmal atrial fibrillation ICD Code: I48.0 - Paroxysmal atrial fibrillation Status: Resolved (6) Anemia ICD Code: D64.9 - Anemia, unspecified Status: Chronic (7) DM2 (diabetes mellitus, type 2) ICD Code: E11.9 - Type 2 diabetes mellitus without complications Status: Chronic (8) Acute and chronic respiratory failure ICD Code: J96.20 - Acute and chronic respiratory failure, unspecified whether with hypoxia or hypercapnia Status: Acute (9) Atrial fibrillation with RVR ICD Code: I48.91 - Unspecified atrial fibrillation Status: Resolved Assessment and Plan 76-year-old female with GI bleeding, status post respiratory failure, extubated , A. fib with RVR, chronic kidney disease that has progressed requiring hemodialysis. GI bleedin/13 s/p EGD, colonoscopy: gastritis, ulcer in cecum with visible vessel - clipped, , ascending and transverse colon ulcer, sigmoid diverticulosis, internal and external hemorrhoids. -Persistent melena on 06/23/17. Patient underwent repeat upper endoscopy by Dr. Guerrero which revealed gastropathy with gastritis and some area of oozing blood. This was cauterized. - Continue PPI - Started on Metoprol for gastropathy and given FFP to help with bleeding CKD stage 4 and progressing to HD dependent: Renal ultrasound 05/31 revealed medical renal disease left kidney/atrophy. Right kidney within normal limits Dr. Lee following. Hemodialysis Monday/Monday and Monday On calcium acetate 1334 mg 3 times a day Acute respiratory failure/COPD exacerbation: - Patient is status post extubation. - Pulmonology following. - Continue Solumedrol Q12. duonebs as needed. Supplemental oxygen Afib with RVR. - Has been difficult to control. S/P Cardizem drip - DC Cardizem drip today. Continue increased dose of oral Cardizem 240 mg QD. Metoprolol. - Monitor. Not a candidate for anticoagulation currently given bleeding. Anxiety disorder NOS Alprazolam 0.5 mg by mouth every 8hours as needed for anxiety/home medication for anxiety Acetaminophen/hydrocodone 5/325 one tablet every 6 hours as needed Pain 1-5. Morphine sulfate 2 mg IV every 4 hours as needed pain 6-10 Diabetes mellitus Levemir 25 units subcut q12 hours Continue with SSI- medium scale with Accu-Cheks every before meals/at bedtime with Novolin R. GI prophylaxis with pantoprazole 40 mill grams po twice a day and DVT prophylaxis with SCDs and no pharmacological prophylaxis in light of melena stools, cecal ulcer Keep in ICU, not stable yet for floor Problem Qualifiers (1) Acute renal failure: Qualified Codes: N17.9 - Acute kidney failure, unspecified Mayur Haywood MD Jun 23, 2017 14:27
--- NOTE | 2017-06-23 15:24 | HHI.NPPN ---
Subjective History of Present Illness 76-year-old female with past medical history of hypertension, diabetes mellitus, hyperlipidemia, ischemic heart disease, chronic kidney disease, chronic obstructive pulmonary disease was admitted because of generalized weakness, decreased urine output. I he was called to see the patient for elevated BUN and creatinine. The patient is known to me from before. She has been following with me in the office and last time I saw her was on May 04 and at that time her creatinine was 2.2 with given the GFR of 19-20 she had advanced stage IV chronic kidney disease most likely because of diabetic nephropathy. Additional Remarks Patient is alert, breathing is better, with nasal cannula, not in distress, clinically same. Review of Systems General General Remarks Intubated and sedated. Objective Data Data 06/23/17 06/24/17 19:00 07:00 Intake Total 437 ml Balance 437 ml IV Total 35 ml FFP 327 ml Blood Product IV Normal Saline Flush 50 ml Other 25 ml Vital Signs Date Time Temp Pulse Resp B/P (MAP) Pulse Ox O2 Delivery O2 Flow Rate FiO2 06/23/17 14:28 98.3 69 17 162/71 94 06/23/17 14:13 98.2 68 15 162/71 95 06/23/17 14:00 68 06/23/17 14:00 68 14 162/71 (101) 94 06/23/17 13:30 68 12 159/69 (99) 94 06/23/17 13:00 70 22 155/67 (96) 92 06/23/17 12:48 97.3 71 17 151/70 93 06/23/17 12:47 74 19 151/70 (97) 92 06/23/17 12:30 72 18 150/62 (91) 93 06/23/17 12:22 98.3 72 15 140/69 93 06/23/17 12:00 72 24 140/69 (92) 93 06/23/17 12:00 72 06/23/17 11:30 68 23 147/67 (93) 95 06/23/17 11:00 70 27 153/70 (97) 96 06/23/17 10:30 64 14 156/67 (96) 95 06/23/17 10:00 72 06/23/17 10:00 72 26 161/89 (113) 92 06/23/17 09:30 62 35 154/70 (98) 93 06/23/17 09:00 64 06/23/17 09:00 62 31 164/78 (106) 93 06/23/17 08:30 80 26 146/90 (108) 91 06/23/17 08:00 94 Nasal Cannula 2.00 06/23/17 07:20 74 06/23/17 07:16 93 Nasal Cannula 3.00 06/23/17 07:15 97.9 78 14 147/67 (93) 93 06/23/17 06:15 74 20 145/67 (93) 94 06/23/17 06:00 81 06/23/17 06:00 88 17 148/89 (108) 91 06/23/17 05:47 90 17 134/71 (92) 91 06/23/17 05:45 86 16 75/56 (62) 91 06/23/17 05:30 90 16 152/60 (90) 92 06/23/17 05:15 86 15 140/72 (94) 92 06/23/17 04:15 96 17 152/82 (105) 92 06/23/17 04:00 88 06/23/17 04:00 98.8 90 16 154/71 (98) 92 06/23/17 03:45 90 17 140/74 (96) 94 06/23/17 03:30 88 16 130/69 (89) 93 06/23/17 03:16 98 154/67 (96) 91 06/23/17 03:00 98 29 122/77 (92) 88 06/23/17 02:45 90 16 146/77 (100) 91 06/23/17 02:15 88 18 151/60 (90) 91 06/23/17 02:00 90 15 122/83 (96) 91 06/23/17 02:00 102 06/23/17 01:59 98.1 80 19 146/77 91 06/23/17 01:51 84 17 131/62 (85) 91 06/23/17 01:46 92 19 125/68 (87) 91 06/23/17 01:44 98.8 88 20 133/66 91 06/23/17 01:41 90 18 133/66 (88) 93 06/23/17 01:36 84 15 119/68 (85) 91 06/23/17 01:31 84 14 122/91 (101) 92 06/23/17 01:26 86 14 113/59 (77) 92 06/23/17 01:21 80 14 126/59 (81) 91 06/23/17 01:16 82 15 119/64 (82) 92 06/23/17 01:11 86 15 132/55 (80) 92 06/23/17 01:06 84 15 120/72 (88) 92 06/23/17 01:03 80 15 123/62 (82) 93 06/23/17 01:01 82 15 70/55 (60) 92 06/23/17 01:00 88 15 92 06/23/17 00:26 82 14 124/59 (80) 95 06/23/17 00:21 84 13 117/63 (81) 96 06/23/17 00:16 82 14 92/57 (69) 97 06/23/17 00:11 88 13 145/75 (98) 97 06/23/17 00:06 84 14 135/62 (86) 97 06/23/17 00:01 98.1 84 14 138/63 (88) 96 06/23/17 00:00 92 06/22/17 23:56 80 15 140/61 (87) 94 06/22/17 23:51 80 15 127/62 (83) 95 06/22/17 23:46 86 18 138/70 (92) 96 06/22/17 23:41 84 14 137/71 (93) 97 06/22/17 23:36 82 14 135/66 (89) 97 06/22/17 23:16 98.1 102 19 137/71 95 06/22/17 23:06 88 20 119/65 (83) 94 06/22/17 23:01 90 19 133/79 (97) 95 06/22/17 23:01 90 19 133/79 (97) 95 06/22/17 23:00 105 06/22/17 23:00 87 06/22/17 22:56 90 18 134/72 (92) 94 06/22/17 22:55 97.6 87 15 134/72 94 06/22/17 22:51 98 19 112/75 (87) 92 06/22/17 22:46 98 27 126/63 (84) 90 06/22/17 22:41 94 19 116/60 (78) 93 11/16/17 22:33 105 116/52 06/22/17 22:06 92 14 115/50 (71) 95 06/22/17 22:01 98 14 120/64 (82) 94 06/22/17 22:00 97 06/22/17 21:56 98 14 126/69 (88) 93 06/22/17 21:51 92 14 125/60 (81) 94 06/22/17 21:46 98 14 115/69 (84) 93 06/22/17 21:41 92 14 100/49 (66) 93 06/22/17 21:36 98 15 128/70 (89) 92 06/22/17 21:31 92 17 103/46 (65) 93 06/22/17 21:26 94 14 131/52 (78) 93 06/22/17 21:21 88 16 127/47 (73) 94 06/22/17 21:16 88 14 147/47 (80) 93 06/22/17 21:11 86 17 138/54 (82) 93 06/22/17 21:06 88 15 123/53 (76) 93 06/22/17 21:01 94 16 106/49 (68) 93 06/22/17 21:00 96 23 93 06/22/17 20:11 86 21 138/49 (78) 95 06/22/17 20:06 84 13 135/72 (93) 96 06/22/17 20:01 98.1 92 19 143/53 (83) 97 06/22/17 20:00 87 06/22/17 19:56 84 14 131/49 (76) 98 06/22/17 19:51 84 13 132/61 (84) 96 06/22/17 19:50 95 Nasal Cannula 3.00 06/22/17 19:46 78 13 142/46 (78) 96 06/22/17 19:41 82 14 130/60 (83) 96 06/22/17 19:36 84 14 126/60 (82) 96 06/22/17 19:31 88 13 124/67 (86) 96 06/22/17 19:26 82 18 152/55 (87) 95 06/22/17 19:21 86 17 128/60 (82) 95 06/22/17 19:16 84 22 131/55 (80) 95 06/22/17 19:15 82 15 95 06/22/17 19:11 84 22 140/51 (80) 95 06/22/17 19:06 84 18 125/53 (77) 95 06/22/17 19:01 84 15 111/52 (71) 95 06/22/17 19:00 94 Nasal Cannula 2.00 06/22/17 19:00 82 17 95 06/22/17 18:16 90 17 137/47 (77) 94 17 18:15 88 16 94 17 18:11 80 14 127/53 (77) 93 06/22/17 18:06 86 14 114/63 (80) 93 06/22/17 18:01 82 14 128/59 (82) 93 06/22/17 18:00 82 14 93 17 18:00 92 06/22/17 17:56 86 14 113/52 (72) 93 06/22/17 17:51 84 14 121/54 (76) 94 06/22/17 17:46 86 13 131/60 (83) 93 17 17:45 82 13 93 06/22/17 17:41 88 14 126/46 (72) 93 06/22/17 17:36 90 14 103/45 (64) 93 06/22/17 17:30 84 22 93 17 17:29 88 24 114/46 (68) 94 17 17:28 86 22 80/49 (59) 93 06/22/17 17:27 84 15 104/48 (66) 93 06/22/17 17:15 106 13 116/70 (85) 93 17 17:00 108 13 104/71 (82) 94 17 16:45 112 14 122/44 (70) 93 16/17 16:45 112 16/17 16:30 106 14 121/60 (80) 93 16/17 16:30 106 16/17 16:30 106 14 121/60 (80) 93 16/17 16:20 110 16/17 16:20 110 16 121/73 (89) 93 16/17 16:15 116 16/17 16:15 116 13 92 06/22/17 16:02 98.7 122 16 119/65 (83) 92 06/22/17 16:02 122 06/22/17 16:00 122 06/22/17 16:00 122 15 92 06/22/17 16:00 122 06/22/17 15:48 126 17 111/63 (79) 87 06/22/17 15:48 126 -: 06/23/17 0630 06/23/17 0630 Physical Exam General Appearance: No Acute Distress, Comfortable Eyes Eye Exam: Pupils Equal Throat Throat Exam: Oral Mucosa [place] & Moist Neck Neck Exam: Neck Supple Pulmonary Resp Exam: Breath Sounds Equal, Rhonchi, Decreased Bases, Diminished Breath Sounds, Poor Inspiratory Effort Cardiology CV Exam: Regular, Normal Sinus Rhythm Gastrointestinal/Abdomen GI Exam: Soft, Non-Tender, Bowel Sounds Present, Distended Extremeties Extremities Exam: Trace Edema Neurologic Neuro Exam: Alert, Awake, Oriented Psychiatric Psych Exam: Appropriate Responses Assessment/Plan Assessment Summary: [place]/Acute Renal Failure, Hypertension, CKD Stage IV Problem List: (1) Chronic kidney disease (CKD) ICD Codes: N18.9 - Chronic kidney disease, unspecified (2) Oliguria ICD Codes: R34 - Anuria and oliguria (3) Diarrhea ICD Codes: R19.7 - Diarrhea, unspecified (4) Metabolic acidosis ICD Codes: E87.2 - Acidosis Status: Acute (5) Uremia ICD Codes: N19 - Unspecified kidney failure Status: Acute (6) Acute renal failure ICD Codes: N17.9 - Acute kidney failure, unspecified Status: Acute Plan Patient has advance stage 4 chronic kidney disease, approach stage 5. Started on HD. Patient will need AVF, when stable and termination clerk HD. Patient has COPD with high CO2 and developing SOB off and on. Off vent doing better BP is stable. Hgb. is better now,on Epogen. HD done yesterday. Has PermCath done. Vascular called, they will do AVF as out patient. Problem Qualifiers (1) Chronic kidney disease (CKD): Qualified Codes: N18.5 - Chronic kidney disease, stage 5 (2) Acute renal failure: Qualified Codes: N17.9 - Acute kidney failure, unspecified Lexy Lee MD Jun 23, 2017 15:23
[2017-06-23 16:47] LABS: HEMATOCRIT 24.6 % (35.0-46.0)
[2017-06-23 16:55] LABS: REVIEW FLAG FINAL
--- NOTE | 2017-06-23 17:07 | HHI.PR ---
Subjective Remarks 76 YOWF with VDRF,Ac renal Failure,DM, Met acidosis No Fever Extubated, on NC Alert awake feels weak, mild sob Breathing better Had PRBC Had EGD Objective Vital Signs Vital Signs Date Time Temp Pulse Resp B/P (MAP) Pulse Ox O2 Delivery O2 Flow Rate FiO2 06/23/17 16:15 98.9 77 13 136/62 96 06/23/17 16:00 68 14 136/62 (86) 95 06/23/17 16:00 68 06/23/17 15:00 70 16 135/64 (87) 93 06/23/17 14:45 97.3 72 14 158/74 93 06/23/17 14:28 98.3 69 17 162/71 94 06/23/17 14:13 98.2 68 15 162/71 95 06/23/17 14:00 68 06/23/17 14:00 68 14 162/71 (101) 94 06/23/17 13:30 68 12 159/69 (99) 94 06/23/17 13:00 70 22 155/67 (96) 92 06/23/17 12:48 97.3 71 17 151/70 93 06/23/17 12:47 74 19 151/70 (97) 92 06/23/17 12:30 72 18 150/62 (91) 93 06/23/17 12:22 98.3 72 15 140/69 93 06/23/17 12:00 72 24 140/69 (92) 93 06/23/17 12:00 72 06/23/17 11:30 68 23 147/67 (93) 95 06/23/17 11:00 70 27 153/70 (97) 96 06/23/17 10:30 64 14 156/67 (96) 95 06/23/17 10:00 72 06/23/17 10:00 72 26 161/89 (113) 92 06/23/17 09:30 62 35 154/70 (98) 93 06/23/17 09:00 64 06/23/17 09:00 62 31 164/78 (106) 93 06/23/17 08:30 80 26 146/90 (108) 91 06/23/17 08:00 94 Nasal Cannula 2.00 06/23/17 07:20 74 06/23/17 07:16 93 Nasal Cannula 3.00 06/23/17 07:15 97.9 78 14 147/67 (93) 93 06/23/17 06:15 74 20 145/67 (93) 94 06/23/17 06:00 81 06/23/17 06:00 88 17 148/89 (108) 91 06/23/17 05:47 90 17 134/71 (92) 91 06/23/17 05:45 86 16 75/56 (62) 91 06/23/17 05:30 90 16 152/60 (90) 92 06/23/17 05:15 86 15 140/72 (94) 92 06/23/17 04:15 96 17 152/82 (105) 92 06/23/17 04:00 88 06/23/17 04:00 98.8 90 16 154/71 (98) 92 06/23/17 03:45 90 17 140/74 (96) 94 06/23/17 03:30 88 16 130/69 (89) 93 06/23/17 03:16 98 154/67 (96) 91 06/23/17 03:00 98 29 122/77 (92) 88 06/23/17 02:45 90 16 146/77 (100) 91 06/23/17 02:15 88 18 151/60 (90) 91 06/23/17 02:00 90 15 122/83 (96) 91 06/23/17 02:00 102 06/23/17 01:59 98.1 80 19 146/77 91 06/23/17 01:51 84 17 131/62 (85) 91 06/23/17 01:46 92 19 125/68 (87) 91 06/23/17 01:44 98.8 88 20 133/66 91 06/23/17 01:41 90 18 133/66 (88) 93 06/23/17 01:36 84 15 119/68 (85) 91 06/23/17 01:31 84 14 122/91 (101) 92 06/23/17 01:26 86 14 113/59 (77) 92 06/23/17 01:21 80 14 126/59 (81) 91 06/23/17 01:16 82 15 119/64 (82) 92 06/23/17 01:11 86 15 132/55 (80) 92 06/23/17 01:06 84 15 120/72 (88) 92 06/23/17 01:03 80 15 123/62 (82) 93 06/23/17 01:01 82 15 70/55 (60) 92 06/23/17 01:00 88 15 92 06/23/17 00:26 82 14 124/59 (80) 95 06/23/17 00:21 84 13 117/63 (81) 96 06/23/17 00:16 82 14 92/57 (69) 97 06/23/17 00:11 88 13 145/75 (98) 97 06/23/17 00:06 84 14 135/62 (86) 97 06/23/17 00:01 98.1 84 14 138/63 (88) 96 06/23/17 00:00 92 06/22/17 23:56 80 15 140/61 (87) 94 06/22/17 23:51 80 15 127/62 (83) 95 06/22/17 23:46 86 18 138/70 (92) 96 06/22/17 23:41 84 14 137/71 (93) 97 06/22/17 23:36 82 14 135/66 (89) 97 06/22/17 23:16 98.1 102 19 137/71 95 06/22/17 23:06 88 20 119/65 (83) 94 06/22/17 23:01 90 19 133/79 (97) 95 06/22/17 23:01 90 19 133/79 (97) 95 06/22/17 23:00 105 06/22/17 23:00 87 06/22/17 22:56 90 18 134/72 (92) 94 06/22/17 22:55 97.6 87 15 134/72 94 06/22/17 22:51 98 19 112/75 (87) 92 06/22/17 22:46 98 27 126/63 (84) 90 06/22/17 22:41 94 19 116/60 (78) 93 06/22/17 22:33 105 116/52 06/22/17 22:06 92 14 115/50 (71) 95 06/22/17 22:01 98 14 120/64 (82) 94 06/22/17 22:00 97 06/22/17 21:56 98 14 126/69 (88) 93 06/22/17 21:51 92 14 125/60 (81) 94 06/22/17 21:46 98 14 115/69 (84) 93 06/22/17 21:41 92 14 100/49 (66) 93 06/22/17 21:36 98 15 128/70 (89) 92 06/22/17 21:31 92 17 103/46 (65) 93 06/22/17 21:26 94 14 131/52 (78) 93 06/22/17 21:21 88 16 127/47 (73) 94 06/22/17 21:16 88 14 147/47 (80) 93 06/22/17 21:11 86 17 138/54 (82) 93 06/22/17 21:06 88 15 123/53 (76) 93 06/22/17 21:01 94 16 106/49 (68) 93 06/22/17 21:00 96 23 93 06/22/17 20:11 86 21 138/49 (78) 95 06/22/17 20:06 84 13 135/72 (93) 96 06/22/17 20:01 98.1 92 19 143/53 (83) 97 06/22/17 20:00 87 06/22/17 19:56 84 14 131/49 (76) 98 06/22/17 19:51 84 13 132/61 (84) 96 06/22/17 19:50 95 Nasal Cannula 3.00 06/22/17 19:46 78 13 142/46 (78) 96 06/22/17 19:41 82 14 130/60 (83) 96 06/22/17 19:36 84 14 126/60 (82) 96 06/22/17 19:31 88 13 124/67 (86) 96 06/22/17 19:26 82 18 152/55 (87) 95 06/22/17 19:21 86 17 128/60 (82) 95 06/22/17 19:16 84 22 131/55 (80) 95 06/22/17 19:15 82 15 95 06/22/17 19:11 84 22 140/51 (80) 95 06/22/17 19:06 84 18 125/53 (77) 95 06/22/17 19:01 84 15 111/52 (71) 95 06/22/17 19:00 94 Nasal Cannula 2.00 06/22/17 19:00 82 17 95 06/22/17 18:16 90 17 137/47 (77) 94 06/22/17 18:15 88 16 94 06/22/17 18:11 80 14 127/53 (77) 93 06/22/17 18:06 86 14 114/63 (80) 93 06/22/17 18:01 82 14 128/59 (82) 93 06/22/17 18:00 82 14 93 06/22/17 18:00 92 06/22/17 17:56 86 14 113/52 (72) 93 06/22/17 17:51 84 14 121/54 (76) 94 06/22/17 17:46 86 13 131/60 (83) 93 06/22/17 17:45 82 13 93 06/22/17 17:41 88 14 126/46 (72) 93 06/22/17 17:36 90 14 103/45 (64) 93 06/22/17 17:30 84 22 93 06/22/17 17:29 88 24 114/46 (68) 94 06/22/17 17:28 86 22 80/49 (59) 93 06/22/17 17:27 84 15 104/48 (66) 93 06/22/17 17:15 106 13 116/70 (85) 93 I/O 06/22/17 06/22/17 06/22/17 06/23/17 06/23/17 06/23/17 07:00 15:00 23:00 07:00 15:00 23:00 Intake Total 60 ml 25 ml 605 ml 437 ml 415 ml Output Total 0 ml 2500 ml 800 ml Balance 60 ml -2500 ml 25 ml -195 ml 437 ml 415 ml Intake Oral 60 ml 30 ml IV Total 35 ml Packed Cells 500 ml FFP 327 ml 365 ml Blood Product IV Normal Saline Flush 25 ml 75 ml 50 ml 50 ml Other 25 ml Output Urine Total 0 ml Stool Total 800 ml Hemodialysis 2500 ml # Voids 0 # Bowel Movements 6 2 8 Result Diagram: 06/23/17 1635 06/23/17629 Objective Remarks GENERAL: WBWN WF, On NC SKIN: Warm and dry. HEAD: Normocephalic. EYES: No scleral icterus. No injection or drainage. NECK: Supple, trachea midline. No JVD or lymphadenopathy. CARDIOVASCULAR: Regular rate and rhythm without murmurs, gallops, or rubs. RESPIRATORY: Breath sounds equal bilaterally. No accessory muscle use. GASTROINTESTINAL: Abdomen soft, non-tender, nondistended. MUSCULOSKELETAL: No cyanosis, or edema. BACK: Nontender without obvious deformity. No CVA tenderness. A/P Assessment and Plan VDRF, s/p Extubation COPD Ac renal Failure DM Nicotine use AF with RVR, converted to NSR PLAN: Supplement 02, keep sat 88-92% Monitor BS Caitlin qid. Solumedrol 40 mg q 12 hrs CPAP prn Monitor H/H Jac Hammonds MD Jun 23, 2017 17:07
[2017-06-23] MEDS: ATORVASTATIN 40 MG TAB PO SCH (20:14)
[2017-06-24] VITALS (44 sets, daily range): BP systolic 76–166; BP diastolic 42–79; PULSE 68–124; RESP 13–21; TEMP 98.7–98.8; O2SAT 91–98
[2017-06-24] MEDS: RESP: ALBUTEROL 2.5 MG/IPRATROPIUM 0.5 MG NEB (SCH) NEB ×4 (00:20→11:25)
[2017-06-24] MEDS: CHLORHEXIDINE GLUCONATE 2 % 1 PACK (2 CLOTHS) TOP SCH (04:00)
[2017-06-24] MEDS: ISOSORBIDE MONONITRATE 30 MG TAB PO SCH (05:29)
[2017-06-24] MEDS: hydrALAZINE HCL 50 MG TAB PO SCH (05:29)
[2017-06-24] MEDS: methylPREDNISolone SOD SUCC 40 MG/1 ML VIAL IV PUSH SCH ×3 (05:29→20:52)
[2017-06-24] MEDS: METOPROLOL TARTRATE 25 MG TAB PO SCH ×3 (05:29→20:50)
[2017-06-24 07:09] LABS: AUTOMATED NEUTROPHIL # 13.3 TH/MM3 (1.8-7.7); BASOPHIL % 0.1 % (0.0-2.0); EOSINOPHIL % 0.1 % (0.0-4.0); HEMATOCRIT 25.7 % (35.0-46.0); LYMPH % 2.9 % (9.0-44.0); LYMPHOCYTE # 0.4 TH/MM3 (1.0-4.8); MEAN CELL VOLUME 83.8 FL (80.0-100.0); MEAN CORPUSCULAR HEMOGLOBIN 27.5 PG (27.0-34.0); MEAN CORPUSCULAR HGB CONC 32.8 % (32.0-36.0); MONO % 2.8 % (0.0-8.0); NEUT % 94.1 % (16.0-70.0); PLATELET COUNT 102 TH/MM3 (150-450); RED BLOOD COUNT 3.06 MIL/MM3 (4.00-5.30); RED CELL DISTRIBUTION WIDTH 17.9 % (11.6-17.2); WHITE BLOOD COUNT 14.1 TH/MM3 (4.0-11.0)
[2017-06-24 07:14] LABS: HEMO FLAGS DIFF FINAL
[2017-06-24 07:26] LABS: POTASSIUM 5.2 MEQ/L (3.5-5.1)
[2017-06-24 07:30] LABS: BICARBONATE 23.1 MEQ/L (21.0-32.0)
[2017-06-24] MEDS: INSULIN NovoLIN REGULAR SUPPLEMENTAL SCALE SQ SCH ×4 (08:00→20:52)
[2017-06-24] MEDS: SODIUM CHLORIDE 0.9% FLUSH 10 ML FLUSH IV FLUSH SCH ×3 (09:00→20:51)
[2017-06-24] MEDS: VITAMIN B CMPLX/VITC/FOLIC AC CAP PO SCH (09:00)
[2017-06-24] MEDS: ALBUMIN 25% INJ 100 ML IV PRN (09:31)
[2017-06-24] MEDS: SODIUM CHLORIDE 0.9% FLUSH 10 ML FLUSH IV FLUSH PRN (09:31)
[2017-06-24] MEDS: EPOETIN ALFA 10,000 UNITS/ML VIAL IV PUSH PRN (09:31)
[2017-06-24] MEDS: SODIUM CHLOR 0.9% 1000 ML INJ 1,000 ML OTHER PRN (09:31)
[2017-06-24] MEDS: HEPARIN SODIUM - IV 10,000 UNITS/10 ML VIAL PRN (09:32)
[2017-06-24] MEDS: GENTAMICIN SULFATE (DIALYSIS USE ONLY) 20 MG/2 ML VIAL OTHER PRN (09:32)
[2017-06-24] MEDS: FERROUS SULFATE 325 MG (65 MG ELEMENTAL IRON) TAB PO SCH (11:31)
[2017-06-24] MEDS: DILTIAZEM-CD 240 MG CAP ER PO SCH (11:31)
[2017-06-24] MEDS: CALCIUM ACETATE 667 MG CAP PO SCH ×3 (11:31→17:19)
[2017-06-24] MEDS: PANTOPRAZOLE SOD 40 MG DELAYED RELEASE TAB PO SCH ×2 (11:31→20:50)
[2017-06-24] MEDS: INSULIN DETEMIR 100 UNITS/ML VIAL SQ SCH ×2 (11:32→20:52)
[2017-06-24] MEDS: BUDESONIDE-FORMOTEROL 160/4.5 MCG INHALER INH SCH ×2 (11:32→20:50)
--- NOTE | 2017-06-24 12:04 | HHI.PR ---
Subjective Remarks Patient c/o fatigue, but denies shortness of breath or pain. S/p dialysis this morning. HR in afib rate 110-130 - to received dose of metoprolol. Objective Vitals Vital Signs Date Time Temp Pulse Resp B/P (MAP) Pulse Ox O2 Delivery O2 Flow Rate FiO2 06/24/17 10:16 90 20 91/44 (60) 95 06/24/17 10:00 90 17 87/49 (62) 95 06/24/17 10:00 72 06/24/17 09:45 88 19 106/46 (66) 95 06/24/17 09:30 86 17 95/44 (61) 95 06/24/17 09:15 84 19 90/48 (62) 95 06/24/17 09:00 78 17 102/49 (66) 94 06/24/17 08:45 72 16 132/53 (79) 94 06/24/17 08:30 72 17 133/63 (86) 97 06/24/17 08:15 70 13 128/53 (78) 96 06/24/17 08:00 74 14 135/55 (81) 96 06/24/17 08:00 Nasal Cannula 4.00 06/24/17 08:00 72 06/24/17 07:31 96 Nasal Cannula 4.00 06/24/17 07:00 68 15 136/53 (80) 96 06/24/17 06:00 76 06/24/17 06:00 76 14 149/70 (96) 95 06/24/17 05:00 72 15 160/79 (106) 97 06/24/17 05:00 72 06/24/17 04:00 82 06/24/17 04:00 98.7 82 19 166/69 (101) 94 06/24/17 03:00 78 18 157/67 (97) 95 06/24/17 03:00 78 06/24/17 02:00 76 06/24/17 02:00 76 15 152/64 (93) 95 06/24/17 01:00 86 21 140/60 (86) 93 06/24/17 01:00 86 06/24/17 00:00 98.7 76 16 123/58 (79) 93 06/24/17 00:00 76 06/23/17 23:00 72 15 133/59 (83) 94 06/23/17 23:00 72 06/23/17 22:00 68 16 144/57 (86) 95 06/23/17 22:00 68 06/23/17 21:32 Nasal Cannula 4.00 06/23/17 21:00 68 06/23/17 21:00 68 16 159/74 (102) 95 06/23/17 20:01 95 Nasal Cannula 4.00 06/23/17 20:00 70 06/23/17 20:00 98.2 70 18 141/62 (88) 95 06/23/17 19:00 68 16 141/63 (89) 94 06/23/17 18:00 70 06/23/17 18:00 70 14 127/58 (81) 97 06/23/17 17:00 64 29 132/58 (82) 96 06/23/17 16:15 98.9 77 13 136/62 96 06/23/17 16:00 68 14 136/62 (86) 95 06/23/17 16:00 68 06/23/17 15:00 70 16 135/64 (87) 93 06/23/17 14:45 97.3 72 14 158/74 93 06/23/17 14:28 98.3 69 17 162/71 94 06/23/17 14:13 98.2 68 15 162/71 95 06/23/17 14:00 68 06/23/17 14:00 68 14 162/71 (101) 94 06/23/17 13:30 68 12 159/69 (99) 94 06/23/17 13:00 70 22 155/67 (96) 92 06/23/17 12:48 97.3 71 17 151/70 93 06/23/17 12:47 74 19 151/70 (97) 92 06/23/17 12:30 72 18 150/62 (91) 93 06/23/17 12:22 98.3 72 15 140/69 93 06/23/17 12:00 72 24 140/69 (92) 93 06/23/17 12:00 72 I/O 06/23/17 06/23/17 06/23/17 06/24/17 06/24/17 06/24/17 07:00 15:00 23:00 07:00 15:00 23:00 Intake Total 605 ml 437 ml 735 ml Output Total 800 ml 500 ml 50 ml Balance -195 ml 437 ml 235 ml -50 ml Intake Oral 30 ml 320 ml IV Total 35 ml Packed Cells 500 ml FFP 327 ml 365 ml Blood Product IV Normal Saline Flush 75 ml 50 ml 50 ml Other 25 ml Output Urine Total 0 ml Stool Total 800 ml 500 ml 50 ml # Voids 0 # Bowel Movements 8 Result Diagram: 06/24/1746 06/24/1746 Objective Remarks GENERAL: Well-nourished, well-developed CF patient in NAD. SKIN: Warm and dry. patient has small lesion with necrosis on left forearm just inferior to antecubital fossa, no drainage or erythema. HEAD: Normocephalic. EYES: No scleral icterus. No injection or drainage. NECK: Supple, trachea midline. No JVD or lymphadenopathy. CARDIOVASCULAR: Regular rate and rhythm without murmurs, gallops, or rubs. RESPIRATORY: faint exp wheezing b/l nonlabored breathing on 2L NC. GASTROINTESTINAL: Abdomen soft, non-tender, nondistended. EXTREMITIES: No cyanosis, or edema. NEUROLOGICAL: Awake, alert, and oriented x 3. Non-focal. Date of Insertion: Jun 12, 2017 Line: Central Venous Catheter Side: Left Location: Internal, Jugular A/P Problem List: (1) Acute renal failure ICD Code: N17.9 - Acute kidney failure, unspecified Status: Acute (2) Community acquired pneumonia ICD Code: J18.9 - Pneumonia, unspecified organism Status: Resolved (3) Anxiety ICD Code: F41.9 - Anxiety disorder, unspecified Status: Chronic (4) COPD exacerbation ICD Code: J44.1 - Chronic obstructive pulmonary disease with (acute) exacerbation Status: Acute (5) Paroxysmal atrial fibrillation ICD Code: I48.0 - Paroxysmal atrial fibrillation Status: Acute (6) Anemia ICD Code: D64.9 - Anemia, unspecified Status: Chronic (7) DM2 (diabetes mellitus, type 2) ICD Code: E11.9 - Type 2 diabetes mellitus without complications Status: Chronic (8) Acute and chronic respiratory failure ICD Code: J96.20 - Acute and chronic respiratory failure, unspecified whether with hypoxia or hypercapnia Status: Acute (9) Atrial fibrillation with RVR ICD Code: I48.91 - Unspecified atrial fibrillation Status: Resolved Assessment and Plan 76-year-old female with GI bleeding, status post respiratory failure, extubated , A. fib with RVR, chronic kidney disease that has progressed requiring hemodialysis. GI bleedin/13 s/p EGD, colonoscopy: gastritis, ulcer in cecum with visible vessel - clipped, , ascending and transverse colon ulcer, sigmoid diverticulosis, internal and external hemorrhoids. -Persistent melena on 06/23/17. Patient underwent repeat upper endoscopy by Dr. Guerrero which revealed gastropathy with gastritis and some area of oozing blood. This was cauterized. - Continue PPI - Started on Metoprol for gastropathy and given FFP to help with bleeding -monitor Hb and for any signs of rebleeding CKD stage 4 and progressing to HD dependent: Renal ultrasound 05/31 revealed medical renal disease left kidney/atrophy. Right kidney within normal limits Dr. Lee following. Hemodialysis Monday/Monday and Monday On calcium acetate 1334 mg 3 times a day Acute respiratory failure/COPD exacerbation: - Patient is status post intubation/ extubation multiple times. - Pulmonology following. - Continue Solumedrol 40 mg Q8. duonebs as needed. Supplemental oxygen Afib with RVR. - Has been difficult to control. BP runs low at times. - DC Cardizem drip yesterday. Continue increased dose of oral Cardizem 240 mg QD. Metoprolol 12.5 mg PO q 8hr. - Monitor. Not a candidate for anticoagulation currently given GI bleeding. -2d echo - LVER 50-55%, possibly lipomatous hypertrophy of interatrial septum -Consult cardiology if rate control and low BP remains an issue - hold hydralazine Anxiety disorder NOS Alprazolam 0.5 mg by mouth every 8hours as needed for anxiety/home medication for anxiety Acetaminophen/hydrocodone 5/325 one tablet every 6 hours as needed Pain 1-5. Morphine sulfate 2 mg IV every 4 hours as needed pain 6-10 Diabetes mellitus Levemir 25 units subcut q12 hours Continue with SSI- medium scale with Accu-Cheks every before meals/at bedtime with Novolin R. GI prophylaxis with pantoprazole 40 mill grams po twice a day and DVT prophylaxis with SCDs and no pharmacological prophylaxis in light of melena stools, cecal ulcer Thrombocytopenia Counts stable at 100. monitor CBC. Anemia cont feso4, epogen monitor CBC. Lines: RIJ permacath placed 06/22, central lines DCed 06/22 - peripheral IV. DNR status, palliative care following Problem Qualifiers (1) Acute renal failure: Qualified Codes: N17.9 - Acute kidney failure, unspecified Reyna Conte MD Jun 24, 2017 12:04
[2017-06-24 15:06] LABS: HEMATOCRIT 23.5 % (35.0-46.0)
[2017-06-24 15:09] LABS: REVIEW FLAG FINAL
[2017-06-24] MEDS: RESP: ALBUTEROL 2.5 MG/3 ML NEB (PRN) NEB (15:22)
--- NOTE | 2017-06-24 16:07 | HHI.PR ---
Subjective Remarks 76 YOWF with VDRF,Ac renal Failure,DM, Met acidosis No Fever Alert awake feels weak, mild sob Breathing better Had HD Objective Vital Signs Vital Signs Date Time Temp Pulse Resp B/P (MAP) Pulse Ox O2 Delivery O2 Flow Rate FiO2 06/24/17 15:16 118 14 119/58 (78) 95 06/24/17 14:16 114 13 112/51 (71) 95 06/24/17 14:00 107 06/24/17 13:16 110 14 107/56 (73) 96 06/24/17 12:16 124 17 90/55 (67) 92 06/24/17 12:00 102 06/24/17 11:46 124 18 104/51 (68) 93 06/24/17 11:29 94 17 109/52 (71) 98 06/24/17 11:17 96 16 100/43 (62) 96 06/24/17 11:15 94 15 76/46 (56) 96 06/24/17 11:00 94 16 92/50 (64) 95 06/24/17 10:45 92 15 98/42 (60) 95 06/24/17 10:30 90 17 86/47 (60) 95 06/24/17 10:16 90 20 91/44 (60) 95 06/24/17 10:00 90 17 87/49 (62) 95 06/24/17 10:00 72 06/24/17 09:45 88 19 106/46 (66) 95 06/24/17 09:30 86 17 95/44 (61) 95 06/24/17 09:15 84 19 90/48 (62) 95 06/24/17 09:00 78 17 102/49 (66) 94 06/24/17 08:45 72 16 132/53 (79) 94 06/24/17 08:30 72 17 133/63 (86) 97 06/24/17 08:15 70 13 128/53 (78) 96 06/24/17 08:00 74 14 135/55 (81) 96 06/24/17 08:00 Nasal Cannula 4.00 06/24/17 08:00 72 06/24/17 07:31 96 Nasal Cannula 4.00 06/24/17 07:00 68 15 136/53 (80) 96 06/24/17 06:00 76 06/24/17 06:00 76 14 149/70 (96) 95 06/24/17 05:00 72 15 160/79 (106) 97 06/24/17 05:00 72 06/24/17 04:00 82 06/24/17 04:00 98.7 82 19 166/69 (101) 94 06/24/17 03:00 78 18 157/67 (97) 95 06/24/17 03:00 78 06/24/17 02:00 76 06/24/17 02:00 76 15 152/64 (93) 95 06/24/17 01:00 86 21 140/60 (86) 93 06/24/17 01:00 86 06/24/17 00:00 98.7 76 16 123/58 (79) 93 06/24/17 00:00 76 06/23/17 23:00 72 15 133/59 (83) 94 06/23/17 23:00 72 06/23/17 22:00 68 16 144/57 (86) 95 06/23/17 22:00 68 06/23/17 21:32 Nasal Cannula 4.00 06/23/17 21:00 68 06/23/17 21:00 68 16 159/74 (102) 95 06/23/17 20:01 95 Nasal Cannula 4.00 06/23/17 20:00 70 06/23/17 20:00 98.2 70 18 141/62 (88) 95 06/23/17 19:00 68 16 141/63 (89) 94 06/23/17 18:00 70 06/23/17 18:00 70 14 127/58 (81) 97 06/23/17 17:00 64 29 132/58 (82) 96 06/23/17 16:15 98.9 77 13 136/62 96 I/O 06/23/17 06/23/17 06/23/17 06/24/17 06/24/17 06/24/17 07:00 15:00 23:00 07:00 15:00 23:00 Intake Total 605 ml 437 ml 735 ml Output Total 800 ml 500 ml 50 ml 2300 ml Balance -195 ml 437 ml 235 ml -50 ml -2300 ml Intake Oral 30 ml 320 ml IV Total 35 ml Packed Cells 500 ml FFP 327 ml 365 ml Blood Product IV Normal Saline Flush 75 ml 50 ml 50 ml Other 25 ml Output Urine Total 0 ml Stool Total 800 ml 500 ml 50 ml Hemodialysis 2300 ml # Voids 0 # Bowel Movements 8 Result Diagram: 06/24/17 1421 06/24/17 0546 Objective Remarks GENERAL: WBWN WF, On NC SKIN: Warm and dry. HEAD: Normocephalic. EYES: No scleral icterus. No injection or drainage. NECK: Supple, trachea midline. No JVD or lymphadenopathy. CARDIOVASCULAR: Regular rate and rhythm without murmurs, gallops, or rubs. RESPIRATORY: Breath sounds equal bilaterally. No accessory muscle use. GASTROINTESTINAL: Abdomen soft, non-tender, nondistended. MUSCULOSKELETAL: No cyanosis, or edema. BACK: Nontender without obvious deformity. No CVA tenderness. A/P Assessment and Plan VDRF, s/p Extubation COPD Ac renal Failure DM Nicotine use AF with RVR, converted to NSR PLAN: Supplement 02, keep sat 88-92% Monitor RYAN Tucker qid. CPAP prn Monitor H/H Jac Hammonds MD Jun 24, 2017 16:07
--- NOTE | 2017-06-24 16:50 | HHI.GIFU ---
Subjective Remarks Patient awake alert and oriented, sitting in bed, seems to be comfortable, denying any more bleeding, tolerating clear liquid diet, she has a mild drop in her hemoglobin Objective Vitals I&O Vital Signs Date Time Temp Pulse Resp B/P (MAP) Pulse Ox O2 Delivery O2 Flow Rate FiO2 06/24/17 15:16 118 14 119/58 (78) 95 06/24/17 14:16 114 13 112/51 (71) 95 06/24/17 14:00 107 06/24/17 13:16 110 14 107/56 (73) 96 06/24/17 12:16 124 17 90/55 (67) 92 06/24/17 12:00 102 06/24/17 11:46 124 18 104/51 (68) 93 06/24/17 11:29 94 17 109/52 (71) 98 06/24/17 11:17 96 16 100/43 (62) 96 06/24/17 11:15 94 15 76/46 (56) 96 06/24/17 11:00 94 16 92/50 (64) 95 06/24/17 10:45 92 15 98/42 (60) 95 06/24/17 10:30 90 17 86/47 (60) 95 06/24/17 10:16 90 20 91/44 (60) 95 06/24/17 10:00 90 17 87/49 (62) 95 06/24/17 10:00 72 06/24/17 09:45 88 19 106/46 (66) 95 06/24/17 09:30 86 17 95/44 (61) 95 06/24/17 09:15 84 19 90/48 (62) 95 06/24/17 09:00 78 17 102/49 (66) 94 06/24/17 08:45 72 16 132/53 (79) 94 06/24/17 08:30 72 17 133/63 (86) 97 06/24/17 08:15 70 13 128/53 (78) 96 06/24/17 08:00 74 14 135/55 (81) 96 06/24/17 08:00 Nasal Cannula 4.00 06/24/17 08:00 72 06/24/17 07:31 96 Nasal Cannula 4.00 06/24/17 07:00 68 15 136/53 (80) 96 06/24/17 06:00 76 06/24/17 06:00 76 14 149/70 (96) 95 06/24/17 05:00 72 15 160/79 (106) 97 06/24/17 05:00 72 06/24/17 04:00 82 06/24/17 04:00 98.7 82 19 166/69 (101) 94 06/24/17 03:00 78 18 157/67 (97) 95 06/24/17 03:00 78 06/24/17 02:00 76 06/24/17 02:00 76 15 152/64 (93) 95 06/24/17 01:00 86 21 140/60 (86) 93 06/24/17 01:00 86 06/24/17 00:00 98.7 76 16 123/58 (79) 93 06/24/17 00:00 76 06/23/17 23:00 72 15 133/59 (83) 94 06/23/17 23:00 72 06/23/17 22:00 68 16 144/57 (86) 95 06/23/17 22:00 68 06/23/17 21:32 Nasal Cannula 4.00 06/23/17 21:00 68 06/23/17 21:00 68 16 159/74 (102) 95 06/23/17 20:01 95 Nasal Cannula 4.00 06/23/17 20:00 70 06/23/17 20:00 98.2 70 18 141/62 (88) 95 06/23/17 19:00 68 16 141/63 (89) 94 06/23/17 18:00 70 06/23/17 18:00 70 14 127/58 (81) 97 06/23/17 17:00 64 29 132/58 (82) 96 I/O 06/23/17 06/23/17 06/23/17 06/24/17 06/24/17 06/24/17 07:00 15:00 23:00 07:00 15:00 23:00 Intake Total 605 ml 437 ml 735 ml Output Total 800 ml 500 ml 50 ml 2300 ml Balance -195 ml 437 ml 235 ml -50 ml -2300 ml Intake Oral 30 ml 320 ml IV Total 35 ml Packed Cells 500 ml FFP 327 ml 365 ml Blood Product IV Normal Saline Flush 75 ml 50 ml 50 ml Other 25 ml Output Urine Total 0 ml Stool Total 800 ml 500 ml 50 ml Hemodialysis 2300 ml # Voids 0 # Bowel Movements 8 Laboratory Laboratory Tests Test 06/24/17 05:46 06/24/17 14:21 White Blood Count 14.1 Red Blood Count 3.06 Hemoglobin 8.4 7.6 Hematocrit 25.7 23.5 Mean Corpuscular Volume 83.8 Mean Corpuscular Hemoglobin 27.5 Mean Corpuscular Hemoglobin Concent 32.8 Red Cell Distribution Width 17.9 Platelet Count 102 Mean Platelet Volume 9.1 Neutrophils (%) (Auto) 94.1 Lymphocytes (%) (Auto) 2.9 Monocytes (%) (Auto) 2.8 Eosinophils (%) (Auto) 0.1 Basophils (%) (Auto) 0.1 Neutrophils # (Auto) 13.3 Lymphocytes # (Auto) 0.4 Monocytes # (Auto) 0.4 Eosinophils # (Auto) 0.0 Basophils # (Auto) 0.0 CBC Comment DIFF FINAL Differential Comment Blood Urea Nitrogen 128 Creatinine 7.30 Random Glucose 254 Calcium Level 8.5 Sodium Level 138 Potassium Level 5.2 Chloride Level 97 Carbon Dioxide Level 23.1 Anion Gap 18 Estimat Glomerular Filtration Rate 5 Date/Time Source Procedure Growth Status 06/12/17 12:45 Blood Peripheral Aerobic Blood Culture - Final NO GROWTH IN 5 DAYS Complete 06/12/17 12:45 Blood Peripheral Anaerobic Blood Culture - Final NO GROWTH IN 5 DAYS Complete 06/13/17 18:31 Stool Stool Stool Occult Blood (MELISSA) - Final HEMOCCULT POSITIVE Complete 06/15/17 06:50 Nasal Aspirate Influenza Types A,B Antigen (MELISSA) - Final NEGATIVE FOR FLU A AND B ANTIGEN.... Complete 06/11/17 20:33 Urine Catheterized Urine Urine Culture - Final Lacey Glabrata Lacey Albicans Complete Physical Exam HEENT: Pupils round and reactive to light; normocephalic; atraumatic; no jaundice. Throat is clear. She generally weak NECK: Neck is supple, no JVD, no lymphadenopathy. CHEST: Chest is clear to auscultation and percussion. CARDIAC: Regular rate and rhythm with no murmur gallop or rubs. ABDOMEN: Soft, nondistended, nontender; no hepatosplenomegaly; bowel sounds are present in all four quadrants. EXTREMITIES: No clubbing, cyanosis, or edema. Assessment and Plan Plan Patient has COPD seems to be improving, extubated followed by pulmonary She had anemia and rectal bleeding yesterday she undergone upper endoscopy and a colonoscopy by Dr. Moseley, upper endoscopy showed gastritis and small hiatal hernia, colonoscopy showed leading ulcer in the cecum that was treated by clips currently hemoglobin stable no active bleeding Recommend advance diet as tolerated, monitor hemoglobin with packed RBC as needed We will follow up as needed 06/23/2017 I was asked to see the patient again because this seems like she has active bleeding again with black stool melena and drop in her hemoglobin general fatigue I order stat INR which was 1.4 platelets above 100 she was given 2 units of packed RBC in the last 12 hours hemoglobin 8.4 Active the patient for urgent upper endoscopy Finding on the endoscopy Severe gastropathy with significant areas and they fundus of the stomach oozing blood this was cauterized by heat with reasonable control of the bleeding but there was significant surface area that has potential for rebleeding 06/24/2017, status post bleeding most likely from the stomach, currently doing well no significant bleeding, hemoglobin slightly low, hungry and wanting to have us advance her diet Continue clear liquid for 1 day Monitor H&H with packed RBC as needed Continue PPI Maria E Guerrero MD Jun 24, 2017 16:50
--- NOTE | 2017-06-24 17:04 | HHI.NPPN ---
Subjective History of Present Illness 76-year-old female with past medical history of hypertension, diabetes mellitus, hyperlipidemia, ischemic heart disease, chronic kidney disease, chronic obstructive pulmonary disease was admitted because of generalized weakness, decreased urine output. I he was called to see the patient for elevated BUN and creatinine. The patient is known to me from before. She has been following with me in the office and last time I saw her was on May 04 and at that time her creatinine was 2.2 with given the GFR of 19-20 she had advanced stage IV chronic kidney disease most likely because of diabetic nephropathy. Additional Remarks No acute distress Review of Systems General General Remarks Intubated and sedated. Objective Data Data 06/24/17 06/25/17 19:00 07:00 Output Total 2300 ml Balance -2300 ml Hemodialysis 2300 ml Vital Signs Date Time Temp Pulse Resp B/P (MAP) Pulse Ox O2 Delivery O2 Flow Rate FiO2 06/24/17 16:16 110 14 114/61 (78) 96 06/24/17 16:00 112 15 95 06/24/17 16:00 102 06/24/17 15:16 118 14 119/58 (78) 95 06/24/17 14:16 114 13 112/51 (71) 95 06/24/17 14:00 107 06/24/17 13:16 110 14 107/56 (73) 96 06/24/17 12:16 124 17 90/55 (67) 92 06/24/17 12:00 102 06/24/17 11:46 124 18 104/51 (68) 93 06/24/17 11:29 94 17 109/52 (71) 98 06/24/17 11:17 96 16 100/43 (62) 96 06/24/17 11:15 94 15 76/46 (56) 96 06/24/17 11:00 94 16 92/50 (64) 95 06/24/17 10:45 92 15 98/42 (60) 95 06/24/17 10:30 90 17 86/47 (60) 95 06/24/17 10:16 90 20 91/44 (60) 95 06/24/17 10:00 90 17 87/49 (62) 95 06/24/17 10:00 72 06/24/17 09:45 88 19 106/46 (66) 95 06/24/17 09:30 86 17 95/44 (61) 95 06/24/17 09:15 84 19 90/48 (62) 95 06/24/17 09:00 78 17 102/49 (66) 94 06/24/17 08:45 72 16 132/53 (79) 94 06/24/17 08:30 72 17 133/63 (86) 97 06/24/17 08:15 70 13 128/53 (78) 96 06/24/17 08:00 74 14 135/55 (81) 96 06/24/17 08:00 Nasal Cannula 4.00 06/24/17 08:00 72 06/24/17 07:31 96 Nasal Cannula 4.00 06/24/17 07:00 68 15 136/53 (80) 96 06/24/17 06:00 76 06/24/17 06:00 76 14 149/70 (96) 95 06/24/17 05:00 72 15 160/79 (106) 97 06/24/17 05:00 72 06/24/17 04:00 82 06/24/17 04:00 98.7 82 19 166/69 (101) 94 06/24/17 03:00 78 18 157/67 (97) 95 06/24/17 03:00 78 06/24/17 02:00 76 06/24/17 02:00 76 15 152/64 (93) 95 06/24/17 01:00 86 21 140/60 (86) 93 06/24/17 01:00 86 06/24/17 00:00 98.7 76 16 123/58 (79) 93 06/24/17 00:00 76 06/23/17 23:00 72 15 133/59 (83) 94 06/23/17 23:00 72 06/23/17 22:00 68 16 144/57 (86) 95 06/23/17 22:00 68 06/23/17 21:32 Nasal Cannula 4.00 06/23/17 21:00 68 06/23/17 21:00 68 16 159/74 (102) 95 06/23/17 20:01 95 Nasal Cannula 4.00 06/23/17 20:00 70 06/23/17 20:00 98.2 70 18 141/62 (88) 95 06/23/17 19:00 68 16 141/63 (89) 94 06/23/17 18:00 70 06/23/17 18:00 70 14 127/58 (81) 97 -: 06/24/17 1421 06/24/17 0546 Physical Exam General Appearance: No Acute Distress, Comfortable Eyes Eye Exam: Pupils Equal Throat Throat Exam: Oral Mucosa [place] & Moist Neck Neck Exam: Neck Supple Pulmonary Resp Exam: Breath Sounds Equal, Rhonchi, Decreased Bases, Diminished Breath Sounds, Poor Inspiratory Effort Cardiology CV Exam: Regular, Normal Sinus Rhythm Gastrointestinal/Abdomen GI Exam: Soft, Non-Tender, Bowel Sounds Present, Distended Extremeties Extremities Exam: Trace Edema Neurologic Neuro Exam: Alert, Awake, Oriented Psychiatric Psych Exam: Appropriate Responses Assessment/Plan Assessment Summary: [place]/Acute Renal Failure, Hypertension, CKD Stage IV Problem List: (1) Chronic kidney disease (CKD) ICD Codes: N18.9 - Chronic kidney disease, unspecified (2) Oliguria ICD Codes: R34 - Anuria and oliguria (3) Diarrhea ICD Codes: R19.7 - Diarrhea, unspecified (4) Metabolic acidosis ICD Codes: E87.2 - Acidosis Status: Acute (5) Uremia ICD Codes: N19 - Unspecified kidney failure Status: Acute (6) Acute renal failure ICD Codes: N17.9 - Acute kidney failure, unspecified Status: Acute Plan Patient has advance stage 4 chronic kidney disease, approach stage 5. Started on HD. Patient has COPD with high CO2 and developing SOB off and on. Off vent doing better BP is stable. Hgb. is better now,on Epogen. Has tunneled catheter for HD Vascular called, they will do AVF as out patient. HD done this morning, follow AM labs. Some tachyardia today after fluid removal - continue to monitor. Plan next HD Monday. Will need eventual outpatient HD arrangements. Problem Qualifiers (1) Chronic kidney disease (CKD): Qualified Codes: N18.5 - Chronic kidney disease, stage 5 (2) Acute renal failure: Qualified Codes: N17.9 - Acute kidney failure, unspecified Laci Gonzalez MD Jun 24, 2017 17:04
[2017-06-24] MEDS: ATORVASTATIN 40 MG TAB PO SCH (20:51)
[2017-06-25] VITALS (32 sets, daily range): BP systolic 108–166; BP diastolic 53–90; PULSE 75–123; RESP 13–30; TEMP 97.6–98.7; O2SAT 91–100
[2017-06-25] MEDS: CHLORHEXIDINE GLUCONATE 2 % 1 PACK (2 CLOTHS) TOP SCH (04:00)
[2017-06-25] MEDS: METOPROLOL TARTRATE 25 MG TAB PO SCH ×3 (06:07→22:23)
[2017-06-25] MEDS: methylPREDNISolone SOD SUCC 40 MG/1 ML VIAL IV PUSH SCH ×3 (06:07→22:23)
[2017-06-25 07:11] LABS: AUTOMATED NEUTROPHIL # 12.6 TH/MM3 (1.8-7.7); BASOPHIL % 0.1 % (0.0-2.0); EOSINOPHIL % 0.1 % (0.0-4.0); HEMATOCRIT 23.7 % (35.0-46.0); LYMPH % 1.7 % (9.0-44.0); LYMPHOCYTE # 0.2 TH/MM3 (1.0-4.8); MEAN CORPUSCULAR HEMOGLOBIN 27.5 PG (27.0-34.0); MEAN CORPUSCULAR HGB CONC 32.4 % (32.0-36.0); MONO % 2.8 % (0.0-8.0); NEUT % 95.3 % (16.0-70.0); PLATELET COUNT 62 TH/MM3 (150-450); RED BLOOD COUNT 2.79 MIL/MM3 (4.00-5.30); RED CELL DISTRIBUTION WIDTH 18.1 % (11.6-17.2); WHITE BLOOD COUNT 13.2 TH/MM3 (4.0-11.0)
[2017-06-25 07:21] LABS: HEMO FLAGS AUTO DIFF
[2017-06-25 07:25] LABS: CHLORIDE 99 MEQ/L (98-107); POTASSIUM 4.7 MEQ/L (3.5-5.1); SODIUM (NA) 140 MEQ/L (136-145)
[2017-06-25 07:31] LABS: ANION GAP 14 MEQ/L (5-15); BICARBONATE 27.1 MEQ/L (21.0-32.0)
[2017-06-25 07:39] LABS: ALKALINE PHOSPHATASE 69 U/L (45-117); ALT (GPT) 19 U/L (10-53); AST (GOT) 62 U/L (15-37); BLOOD UREA NITROGEN 84 MG/DL (7-18); GLOMERULAR FILTRATION RATE 8 ML/MIN (>89); TOTAL BILIRUBIN ADULT 1.2 MG/DL (0.2-1.0)
[2017-06-25 07:46] LABS: PLATELET ESTIMATE SMEAR LOW (NORMAL); PLATELET MORPHOLOGY NORMAL (NORMAL); SCAN/DIFF AUTO DIFF CONFIRMED
[2017-06-25] MEDS: RESP: ALBUTEROL 2.5 MG/3 ML NEB (PRN) NEB (08:19)
[2017-06-25] MEDS: FERROUS SULFATE 325 MG (65 MG ELEMENTAL IRON) TAB PO SCH (08:25)
[2017-06-25] MEDS: ISOSORBIDE MONONITRATE 30 MG TAB PO SCH (08:25)
[2017-06-25] MEDS: DILTIAZEM-CD 240 MG CAP ER PO SCH (08:25)
[2017-06-25] MEDS: BUDESONIDE-FORMOTEROL 160/4.5 MCG INHALER INH SCH ×2 (08:25→20:58)
[2017-06-25] MEDS: PANTOPRAZOLE SOD 40 MG DELAYED RELEASE TAB PO SCH ×2 (08:25→20:58)
[2017-06-25] MEDS: CALCIUM ACETATE 667 MG CAP PO SCH ×3 (08:25→18:08)
[2017-06-25] MEDS: SODIUM CHLORIDE 0.9% FLUSH 10 ML FLUSH IV FLUSH SCH ×3 (08:26→20:59)
[2017-06-25] MEDS: INSULIN NovoLIN REGULAR SUPPLEMENTAL SCALE SQ SCH ×4 (08:26→21:03)
[2017-06-25] MEDS: VITAMIN B CMPLX/VITC/FOLIC AC CAP PO SCH (08:26)
[2017-06-25] MEDS: INSULIN DETEMIR 100 UNITS/ML VIAL SQ SCH ×2 (08:26→21:04)
--- NOTE | 2017-06-25 16:10 | HHI.PR ---
Subjective Remarks Patient has been stable. Remains in atrial fibrillation however heart rate has been controlled today. Patient denies dyspnea or pain. Discussed with ICU nurse Niranjan. Objective Vitals Vital Signs Date Time Temp Pulse Resp B/P (MAP) Pulse Ox O2 Delivery O2 Flow Rate FiO2 06/25/17 15:16 78 17 135/55 (81) 98 06/25/17 14:16 82 20 132/65 (87) 97 06/25/17 14:00 75 06/25/17 13:16 84 20 128/58 (81) 96 06/25/17 12:16 84 15 138/56 (83) 94 06/25/17 12:00 88 06/25/17 11:16 100 13 154/70 (98) 95 06/25/17 10:16 96 14 152/58 (89) 94 06/25/17 10:08 93 06/25/17 09:16 94 17 149/78 (101) 96 06/25/17 08:21 96 Nasal Cannula 4.00 06/25/17 08:16 98.2 88 20 166/75 (105) 95 06/25/17 08:00 Nasal Cannula 3.00 06/25/17 08:00 87 06/25/17 07:16 94 16 141/68 (92) 94 06/25/17 06:08 96 22 158/61 (93) 91 06/25/17 06:00 96 06/25/17 05:00 90 22 158/68 (98) 94 06/25/17 04:16 98.7 100 30 138/61 (86) 91 06/25/17 04:00 123 06/25/17 03:16 98 17 140/66 (90) 98 06/25/17 02:16 98 17 113/59 (77) 96 06/25/17 02:00 86 06/25/17 01:16 108 18 108/53 (71) 95 06/25/17 00:16 104 16 157/90 (112) 94 06/25/17 00:00 86 06/24/17 23:16 98 13 147/59 (88) 95 06/24/17 22:00 96 06/24/17 21:16 100 14 139/57 (84) 94 06/24/17 20:16 98.8 100 14 121/64 (83) 96 06/24/17 20:00 96 06/24/17 19:50 94 Nasal Cannula 4.00 06/24/17 19:16 106 16 128/56 (80) 91 06/24/17 19:16 106 16 128/56 (80) 91 06/24/17 19:00 91 Nasal Cannula 3.00 06/24/17 18:16 102 16 110/54 (72) 92 06/24/17 18:00 96 06/24/17 17:16 106 15 118/49 (72) 93 06/24/17 16:16 110 14 114/61 (78) 96 I/O 06/24/17 06/24/17 06/24/17 06/25/17 06/25/17 06/25/17 07:00 15:00 23:00 07:00 15:00 23:00 Intake Total 380 ml 60 ml Output Total 50 ml 2300 ml 400 ml Balance -50 ml -2300 ml 380 ml -340 ml Intake Oral 380 ml 60 ml Output Urine Total 0 ml Stool Total 50 ml 400 ml Hemodialysis 2300 ml # Voids 0 Result Diagram: 06/25/17 0550 06/25/17 0550 Objective Remarks GENERAL: Well-nourished, well-developed CF patient in NAD. SKIN: Warm and dry. patient has small lesion with necrosis on left forearm just inferior to antecubital fossa, no drainage or erythema. HEAD: Normocephalic. EYES: No scleral icterus. No injection or drainage. NECK: Supple, trachea midline. No JVD or lymphadenopathy. CARDIOVASCULAR: Regular rate and rhythm without murmurs, gallops, or rubs. RESPIRATORY: faint exp wheezing b/l nonlabored breathing on 2L NC. GASTROINTESTINAL: Abdomen soft, non-tender, nondistended. EXTREMITIES: No cyanosis, or edema. NEUROLOGICAL: Awake, alert, and oriented x 3. Non-focal. Date of Insertion: Jun 12, 2017 Line: Central Venous Catheter Side: Left Location: Internal, Jugular A/P Problem List: (1) Acute renal failure ICD Code: N17.9 - Acute kidney failure, unspecified Status: Acute (2) Community acquired pneumonia ICD Code: J18.9 - Pneumonia, unspecified organism Status: Resolved (3) Anxiety ICD Code: F41.9 - Anxiety disorder, unspecified Status: Chronic (4) COPD exacerbation ICD Code: J44.1 - Chronic obstructive pulmonary disease with (acute) exacerbation Status: Acute (5) Paroxysmal atrial fibrillation ICD Code: I48.0 - Paroxysmal atrial fibrillation Status: Acute (6) Anemia ICD Code: D64.9 - Anemia, unspecified Status: Chronic (7) DM2 (diabetes mellitus, type 2) ICD Code: E11.9 - Type 2 diabetes mellitus without complications Status: Chronic (8) Acute and chronic respiratory failure ICD Code: J96.20 - Acute and chronic respiratory failure, unspecified whether with hypoxia or hypercapnia Status: Acute (9) Atrial fibrillation with RVR ICD Code: I48.91 - Unspecified atrial fibrillation Status: Resolved Assessment and Plan 76-year-old female with GI bleeding, status post respiratory failure, extubated , A. fib with RVR, chronic kidney disease that has progressed requiring hemodialysis. GI bleedin/13 s/p EGD, colonoscopy: gastritis, ulcer in cecum with visible vessel - clipped, , ascending and transverse colon ulcer, sigmoid diverticulosis, internal and external hemorrhoids. -Persistent melena on 06/23/17. Patient underwent repeat upper endoscopy by Dr. Guerrero which revealed gastropathy with gastritis and some area of oozing blood. This was cauterized. - Continue PPI, advance to heart healthy diet - Started on Metoprol for gastropathy and given FFP to help with bleeding -monitor Hb and for any signs of rebleeding CKD stage 4 and progressing to HD dependent: Renal ultrasound 05/31 revealed medical renal disease left kidney/atrophy. Right kidney within normal limits Dr. Lee following. Hemodialysis Monday/Monday and Monday On calcium acetate 1334 mg 3 times a day Acute respiratory failure/COPD exacerbation: - Patient is status post intubation/ extubation multiple times. - Pulmonology following. -on Solumedrol 40 mg Q8-will change to prednisone 20 mg by mouth twice a day. duonebs as needed. Supplemental oxygen Afib with RVR. -Heart rate controlled today. She may have gotten RVR due to the fluid shift during dialysis. Continue increased dose of oral Cardizem 240 mg QD. Metoprolol 12.5 mg PO q 8hr. - Monitor. Not a candidate for anticoagulation currently given GI bleeding. -2d echo - LVER 50-55%, possibly lipomatous hypertrophy of interatrial septum -Consult cardiology if rate control and low BP remains an issue - hold hydralazine she is hypotensive after dialysis Anxiety disorder NOS Alprazolam 0.5 mg by mouth every 8hours as needed for anxiety/home medication for anxiety Acetaminophen/hydrocodone 5/325 one tablet every 6 hours as needed Pain 1-5. Morphine sulfate 2 mg IV every 4 hours as needed pain 6-10 Diabetes mellitus Levemir 25 units subcut q12 hours Continue with SSI- medium scale with Accu-Cheks every before meals/at bedtime with Novolin R. GI prophylaxis with pantoprazole 40 mill grams po twice a day and DVT prophylaxis with SCDs and no pharmacological prophylaxis in light of melena stools, cecal ulcer Thrombocytopenia Counts stable at 100. monitor CBC. Anemia of acute blood loss cont feso4, epogen monitor CBC. Transfuse when necessary hemoglobin less than 7 or less than 8 of signs of bleeding Lines: RIJ permacath placed 06/22, central lines DCed 06/22 - peripheral IV. DNR status, palliative care following Will transfer to intermediate care. If heart rate remained stable and pulmonary status remains stable tomorrow she may be transferred to the floor. Discharge Planning nursing home facility. Problem Qualifiers (1) Acute renal failure: Qualified Codes: N17.9 - Acute kidney failure, unspecified Reyna Conte MD Jun 25, 2017 16:10
--- NOTE | 2017-06-25 19:07 | HHI.PR ---
Subjective Remarks 76 YOWF with VDRF,Ac renal Failure,DM, Met acidosis No Fever Alert awake feels weak, mild sob Breathing better Objective Vital Signs Vital Signs Date Time Temp Pulse Resp B/P (MAP) Pulse Ox O2 Delivery O2 Flow Rate FiO2 06/25/17 18:00 152/68 (96) 06/25/17 18:00 92 06/25/17 17:16 90 18 152/57 (88) 100 06/25/17 16:16 84 20 151/59 (89) 95 06/25/17 16:00 82 06/25/17 15:16 78 17 135/55 (81) 98 06/25/17 14:16 82 20 132/65 (87) 97 06/25/17 14:00 75 06/25/17 13:16 84 20 128/58 (81) 96 06/25/17 12:16 84 15 138/56 (83) 94 06/25/17 12:00 88 06/25/17 11:16 100 13 154/70 (98) 95 06/25/17 10:16 96 14 152/58 (89) 94 06/25/17 10:08 93 06/25/17 09:16 94 17 149/78 (101) 96 06/25/17 08:21 96 Nasal Cannula 4.00 06/25/17 08:16 98.2 88 20 166/75 (105) 95 06/25/17 08:00 Nasal Cannula 3.00 06/25/17 08:00 87 06/25/17 07:16 94 16 141/68 (92) 94 06/25/17 06:08 96 22 158/61 (93) 91 06/25/17 06:00 96 06/25/17 05:00 90 22 158/68 (98) 94 06/25/17 04:16 98.7 100 30 138/61 (86) 91 06/25/17 04:00 123 06/25/17 03:16 98 17 140/66 (90) 98 06/25/17 02:16 98 17 113/59 (77) 96 06/25/17 02:00 86 06/25/17 01:16 108 18 108/53 (71) 95 06/25/17 00:16 104 16 157/90 (112) 94 06/25/17 00:00 86 06/24/17 23:16 98 13 147/59 (88) 95 06/24/17 22:00 96 06/24/17 21:16 100 14 139/57 (84) 94 06/24/17 20:16 98.8 100 14 121/64 (83) 96 06/24/17 20:00 96 06/24/17 19:50 94 Nasal Cannula 4.00 06/24/17 19:16 106 16 128/56 (80) 91 06/24/17 19:16 106 16 128/56 (80) 91 I/O 06/24/17 06/24/17 06/24/17 06/25/17 06/25/17 06/25/17 07:00 15:00 23:00 07:00 15:00 23:00 Intake Total 380 ml 60 ml 380 ml Output Total 50 ml 2300 ml 400 ml Balance -50 ml -2300 ml 380 ml -340 ml 380 ml Intake Oral 380 ml 60 ml 380 ml Output Urine Total 0 ml Stool Total 50 ml 400 ml Hemodialysis 2300 ml # Voids 0 # Bowel Movements 3 Result Diagram: 06/25/17 0550 06/25/17 0550 Objective Remarks GENERAL: WBWN WF, On NC SKIN: Warm and dry. HEAD: Normocephalic. EYES: No scleral icterus. No injection or drainage. NECK: Supple, trachea midline. No JVD or lymphadenopathy. CARDIOVASCULAR: Regular rate and rhythm without murmurs, gallops, or rubs. RESPIRATORY: Breath sounds equal bilaterally. No accessory muscle use. GASTROINTESTINAL: Abdomen soft, non-tender, nondistended. MUSCULOSKELETAL: No cyanosis, or edema. BACK: Nontender without obvious deformity. No CVA tenderness. A/P Assessment and Plan VDRF, s/p Extubation COPD Ac renal Failure DM Nicotine use AF with RVR, converted to NSR PLAN: Supplement 02, keep sat 88-92% Monitor RYAN Tucker qid. CPAP prn Monitor H/H Jac Hammonds MD Jun 25, 2017 19:07
[2017-06-25 19:09] LABS: HEMATOCRIT 23.1 % (35.0-46.0)
[2017-06-25 19:14] LABS: REVIEW FLAG FINAL
[2017-06-25] MEDS: ATORVASTATIN 40 MG TAB PO SCH (20:58)
[2017-06-26] VITALS (15 sets, daily range): BP systolic 108–151; BP diastolic 49–76; PULSE 79–112; RESP 15–48; TEMP 97.6–98.7; O2SAT 90–98
[2017-06-26] MEDS: CHLORHEXIDINE GLUCONATE 2 % 1 PACK (2 CLOTHS) TOP SCH (03:58)
[2017-06-26 04:56] LABS: AUTOMATED NEUTROPHIL # 15.9 TH/MM3 (1.8-7.7); EOSINOPHIL % 0.3 % (0.0-4.0); LYMPHOCYTE # 0.2 TH/MM3 (1.0-4.8); MEAN CELL VOLUME 84.9 FL (80.0-100.0); MEAN CORPUSCULAR HEMOGLOBIN 27.9 PG (27.0-34.0); MEAN CORPUSCULAR HGB CONC 32.9 % (32.0-36.0); MONO % 2.6 % (0.0-8.0); NEUT % 96.1 % (16.0-70.0); PLATELET COUNT 73 TH/MM3 (150-450); RED BLOOD COUNT 2.59 MIL/MM3 (4.00-5.30); WHITE BLOOD COUNT 16.5 TH/MM3 (4.0-11.0)
[2017-06-26 05:02] LABS: POTASSIUM 4.9 MEQ/L (3.5-5.1)
[2017-06-26 05:05] LABS: BICARBONATE 26.5 MEQ/L (21.0-32.0)
[2017-06-26 05:12] LABS: HEMO FLAGS AUTO DIFF
[2017-06-26 05:39] LABS: KERATOCYTES 1+ (NORMAL); PLATELET ESTIMATE SMEAR LOW (NORMAL); SCAN/DIFF AUTO DIFF CONFIRMED; TEARDROP RBCS 1+ (NORMAL)
[2017-06-26] MEDS: ISOSORBIDE MONONITRATE 30 MG TAB PO SCH (06:23)
[2017-06-26] MEDS: methylPREDNISolone SOD SUCC 40 MG/1 ML VIAL IV PUSH SCH ×3 (06:24→20:48)
[2017-06-26] MEDS: METOPROLOL TARTRATE 25 MG TAB PO SCH ×3 (06:25→22:37)
[2017-06-26] MEDS: EPOETIN ALFA 10,000 UNITS/ML VIAL IV PUSH PRN (07:57)
[2017-06-26] MEDS: GENTAMICIN SULFATE (DIALYSIS USE ONLY) 20 MG/2 ML VIAL OTHER PRN (07:57)
[2017-06-26] MEDS: HEPARIN SODIUM - IV 10,000 UNITS/10 ML VIAL PRN (07:58)
[2017-06-26] MEDS: INSULIN NovoLIN REGULAR SUPPLEMENTAL SCALE SQ SCH ×4 (08:00→20:47)
[2017-06-26] MEDS: ALBUMIN 25% INJ 100 ML IV PRN (08:39)
[2017-06-26] MEDS: SODIUM CHLORIDE 0.9% FLUSH 10 ML FLUSH IV FLUSH SCH ×3 (09:00→20:51)
[2017-06-26] MEDS: BUDESONIDE-FORMOTEROL 160/4.5 MCG INHALER INH SCH ×2 (11:15→20:50)
[2017-06-26] MEDS: INSULIN DETEMIR 100 UNITS/ML VIAL SQ SCH ×2 (11:21→20:47)
[2017-06-26] MEDS: FERROUS SULFATE 325 MG (65 MG ELEMENTAL IRON) TAB PO SCH (11:21)
[2017-06-26] MEDS: CALCIUM ACETATE 667 MG CAP PO SCH ×3 (11:21→17:43)
[2017-06-26] MEDS: DILTIAZEM-CD 240 MG CAP ER PO SCH (11:21)
[2017-06-26] MEDS: PANTOPRAZOLE SOD 40 MG DELAYED RELEASE TAB PO SCH ×2 (11:24→20:50)
[2017-06-26] MEDS: VITAMIN B CMPLX/VITC/FOLIC AC CAP PO SCH (11:25)
--- NOTE | 2017-06-26 14:48 | HHI.NPPN ---
Subjective History of Present Illness 76-year-old female with past medical history of hypertension, diabetes mellitus, hyperlipidemia, ischemic heart disease, chronic kidney disease, chronic obstructive pulmonary disease was admitted because of generalized weakness, decreased urine output. I he was called to see the patient for elevated BUN and creatinine. The patient is known to me from before. She has been following with me in the office and last time I saw her was on May 04 and at that time her creatinine was 2.2 with given the GFR of 19-20 she had advanced stage IV chronic kidney disease most likely because of diabetic nephropathy. Additional Remarks Patient is alert, with nasal cannula, seen after HD, eating better. Review of Systems General General Remarks Intubated and sedated. Objective Data Data 06/26/17 06/27/17 19:00 07:00 Intake Total 100 ml Output Total 1500 ml Balance -1400 ml IV Total 100 ml Hemodialysis 1500 ml Vital Signs Date Time Temp Pulse Resp B/P (MAP) Pulse Ox O2 Delivery O2 Flow Rate FiO2 06/26/17 14:00 108 06/26/17 12:00 100 06/26/17 12:00 98.4 100 23 132/55 (80) 95 06/26/17 10:10 97 Nasal Cannula 3.00 06/26/17 10:00 98 06/26/17 08:15 92 17 110/58 (75) 93 06/26/17 08:00 97.6 82 17 151/65 (93) 96 06/26/17 08:00 84 06/26/17 07:00 96 Nasal Cannula 3.00 06/26/17 06:00 79 06/26/17 05:00 92 20 98 06/26/17 04:00 98.7 80 17 108/49 (68) 93 06/26/17 04:00 91 06/26/17 02:46 94 48 108/49 (68) 90 06/26/17 00:00 98.2 96 17 135/76 (95) 95 06/26/17 00:00 112 06/25/17 23:50 98.2 96 18 135/76 (95) 95 06/25/17 20:00 108 06/25/17 20:00 97.6 100 15 162/65 (97) 97 06/25/17 19:55 98 Nasal Cannula 4.00 06/25/17 19:00 97 Nasal Cannula 3.00 06/25/17 18:00 152/68 (96) 06/25/17 18:00 92 06/25/17 17:16 90 18 152/57 (88) 100 06/25/17 16:16 84 20 151/59 (89) 95 06/25/17 16:00 82 06/25/17 15:16 78 17 135/55 (81) 98 -: 06/26/17 0440 06/26/17 0440 Physical Exam General Appearance: No Acute Distress, Comfortable Eyes Eye Exam: Pupils Equal Throat Throat Exam: Oral Mucosa [place] & Moist Neck Neck Exam: Neck Supple Pulmonary Resp Exam: Breath Sounds Equal, Rhonchi, Decreased Bases, Diminished Breath Sounds, Poor Inspiratory Effort Cardiology CV Exam: Regular, Normal Sinus Rhythm Gastrointestinal/Abdomen GI Exam: Soft, Non-Tender, Bowel Sounds Present, Distended Extremeties Extremities Exam: Trace Edema Neurologic Neuro Exam: Alert, Awake, Oriented Psychiatric Psych Exam: Appropriate Responses Assessment/Plan Assessment Summary: [place]/Acute Renal Failure, Hypertension, CKD Stage IV Problem List: (1) Chronic kidney disease (CKD) ICD Codes: N18.9 - Chronic kidney disease, unspecified (2) Oliguria ICD Codes: R34 - Anuria and oliguria (3) Diarrhea ICD Codes: R19.7 - Diarrhea, unspecified (4) Metabolic acidosis ICD Codes: E87.2 - Acidosis Status: Acute (5) Uremia ICD Codes: N19 - Unspecified kidney failure Status: Acute (6) Acute renal failure ICD Codes: N17.9 - Acute kidney failure, unspecified Status: Acute Plan Patient has advance stage 4 chronic kidney disease, approach stage 5. Started on HD. Patient has COPD with high CO2 and developing SOB off and on. Off vent doing better BP is stable. Has tunneled catheter for HD Vascular called, they will do AVF as out patient. HD done this morning, 1.5 liters removed. Hgb. dropped, possible transfusion if drop further. On. Epogen with HD. Problem Qualifiers (1) Chronic kidney disease (CKD): Qualified Codes: N18.5 - Chronic kidney disease, stage 5 (2) Acute renal failure: Qualified Codes: N17.9 - Acute kidney failure, unspecified Lexy Lee MD Jun 26, 2017 14:48
--- NOTE | 2017-06-26 15:44 | HHI.HCPN ---
Reason for visit a. To assist with evaluation and management of symptoms including: Dyspnea, anxiety b. To assist medical decision maker(s) with: better understanding of current medical conditions; weighing benefits/burdens of medical treatment options; making medical treatment decisions. (Sivan Hernandez) Subjective/Interval History Patient is a 76-year-old female admitted with COPD exacerbation and end-stage renal disease now on hemodialysis. On 06/20, during attempt to place dialysis access, she developed severe dyspnea and required BiPAP ventilation. She is Status post intubation 2, now extubated to 3 L nasal cannula, tolerating well. Patient seen today for follow up. Patient is resting comfortably in bed, on 2L NC, somewhat drowsy post PT and HD, completed HD earlier today, per RN 1.5L taken off. Anemic today, Hb.2, Hct:22, worsening leukocytosis, WBC:16.5 today. The plan to discharge in a few days to [place] where patient's daughter is located. (Sivan Hernandez) Advance Directives Health Care Surrogate: Copy in medical record (Sivan Hernandez) Advance Directive Specifics Health Care Surrogate(s): Dorothea Gonzalez, patient's daughter (Sivan Hernandez) Objective Vital Signs Date Time Temp Pulse Resp B/P (MAP) Pulse Ox O2 Delivery O2 Flow Rate FiO2 06/26/17 14:00 108 06/26/17 12:00 100 06/26/17 12:00 98.4 100 23 132/55 (80) 95 06/26/17 10:10 97 Nasal Cannula 3.00 06/26/17 10:00 98 06/26/17 08:15 92 17 110/58 (75) 93 06/26/17 08:00 97.6 82 17 151/65 (93) 96 06/26/17 08:00 84 06/26/17 07:00 96 Nasal Cannula 3.00 06/26/17 06:00 79 06/26/17 05:00 92 20 98 06/26/17 04:00 98.7 80 17 108/49 (68) 93 06/26/17 04:00 91 06/26/17 02:46 94 48 108/49 (68) 90 06/26/17 00:00 98.2 96 17 135/76 (95) 95 06/26/17 00:00 112 06/25/17 23:50 98.2 96 18 135/76 (95) 95 06/25/17 20:00 108 06/25/17 20:00 97.6 100 15 162/65 (97) 97 06/25/17 19:55 98 Nasal Cannula 4.00 06/25/17 19:00 97 Nasal Cannula 3.00 06/25/17 18:00 152/68 (96) 06/25/17 18:00 92 06/25/17 17:16 90 18 152/57 (88) 100 06/25/17 16:16 84 20 151/59 (89) 95 06/25/17 16:00 82 Intake & Output 06/26/17 06/26/17 07:00 19:00 Intake Total 60 ml 100 ml Output Total 150 ml 1500 ml Balance -90 ml -1400 ml Intake Oral 60 ml IV Total 100 ml Stool Total 150 ml Hemodialysis 1500 ml # Voids 2 Physical Exam CONSTITUTIONAL/GENERAL: This is an obese, elderly patient, in no apparent distress. TUBES/LINES/DRAINS: PIV x1, Vas cath SKIN: No jaundice, rashes, or lesions. No wounds seen anteriorly. Skin temperature appropriate. Not diaphoretic. HEAD: Atraumatic. Normocephalic. EYES: Pupils equal and round and reactive. Extraocular motions intact. No scleral icterus. No injection or drainage. Fundi not examined. ENT: Hearing grossly normal. Nose without bleeding or purulent drainage. Throat without visible erythema, exudates, masses, or lesions. NECK: Trachea midline. Supple, nontender. CARDIOVASCULAR: Regular rate and rhythm without murmurs, gallops, or rubs. No JVD. Peripheral pulses symmetric. RESPIRATORY/CHEST: Symmetric, unlabored respirations. Clear to auscultation. Breath sounds equal bilaterally. No wheezes, rales, or rhonchi. GASTROINTESTINAL: Abdomen soft, non-tender, nondistended. No hepato-splenomegaly , or palpable masses. No guarding. Bowel sounds present. GENITOURINARY: Without palpable bladder distension. MUSCULOSKELETAL: Extremities without clubbing, cyanosis, or edema. Left arm appears less swollen. No joint tenderness or effusion noted. No calf tenderness. No mottling or clubbing. NEUROLOGICAL: Drowsy. Motor and sensory grossly within normal limits. Follows commands. Moves all extremities. PSYCHIATRIC: Cooperative. . (Sivan Hernandez) Diagnostic Tests Laboratory Laboratory Tests Test 06/23/17 16:35 06/24/17 05:46 06/24/17 14:21 06/25/17 05:50 Hemoglobin 8.2 GM/DL (11.6-15.3) 8.4 GM/DL (11.6-15.3) 7.6 GM/DL (11.6-15.3) 7.7 GM/DL (11.6-15.3) Hematocrit 24.6 % (35.0-46.0) 25.7 % (35.0-46.0) 23.5 % (35.0-46.0) 23.7 % (35.0-46.0) White Blood Count 14.1 TH/MM3 (4.0-11.0) 13.2 TH/MM3 (4.0-11.0) Red Blood Count 3.06 MIL/MM3 (4.00-5.30) 2.79 MIL/MM3 (4.00-5.30) Mean Corpuscular Volume 83.8 FL (80.0-100.0) 85.0 FL (80.0-100.0) Mean Corpuscular Hemoglobin 27.5 PG (27.0-34.0) 27.5 PG (27.0-34.0) Mean Corpuscular Hemoglobin Concent 32.8 % (32.0-36.0) 32.4 % (32.0-36.0) Red Cell Distribution Width 17.9 % (11.6-17.2) 18.1 % (11.6-17.2) Platelet Count 102 TH/MM3 (150-450) 62 TH/MM3 (150-450) Mean Platelet Volume 9.1 FL (7.0-11.0) 9.3 FL (7.0-11.0) Neutrophils (%) (Auto) 94.1 % (16.0-70.0) 95.3 % (16.0-70.0) Lymphocytes (%) (Auto) 2.9 % (9.0-44.0) 1.7 % (9.0-44.0) Monocytes (%) (Auto) 2.8 % (0.0-8.0) 2.8 % (0.0-8.0) Eosinophils (%) (Auto) 0.1 % (0.0-4.0) 0.1 % (0.0-4.0) Basophils (%) (Auto) 0.1 % (0.0-2.0) 0.1 % (0.0-2.0) Neutrophils # (Auto) 13.3 TH/MM3 (1.8-7.7) 12.6 TH/MM3 (1.8-7.7) Lymphocytes # (Auto) 0.4 TH/MM3 (1.0-4.8) 0.2 TH/MM3 (1.0-4.8) Monocytes # (Auto) 0.4 TH/MM3 (0-0.9) 0.4 TH/MM3 (0-0.9) Eosinophils # (Auto) 0.0 TH/MM3 (0-0.4) 0.0 TH/MM3 (0-0.4) Basophils # (Auto) 0.0 TH/MM3 (0-0.2) 0.0 TH/MM3 (0-0.2) CBC Comment DIFF FINAL AUTO DIFF Differential Comment AUTO DIFF CONFIRMED Blood Urea Nitrogen 128 MG/DL (7-18) 84 MG/DL (7-18) Creatinine 7.30 MG/DL (0.50-1.00) 5.20 MG/DL (0.50-1.00) Random Glucose 254 MG/DL (74-106) 196 MG/DL (74-106) Calcium Level 8.5 MG/DL (8.5-10.1) 8.6 MG/DL (8.5-10.1) Sodium Level 138 MEQ/L (136-145) 140 MEQ/L (136-145) Potassium Level 5.2 MEQ/L (3.5-5.1) 4.7 MEQ/L (3.5-5.1) Chloride Level 97 MEQ/L (98-107) 99 MEQ/L (98-107) Carbon Dioxide Level 23.1 MEQ/L (21.0-32.0) 27.1 MEQ/L (21.0-32.0) Anion Gap 18 MEQ/L (5-15) 14 MEQ/L (5-15) Estimat Glomerular Filtration Rate 5 ML/MIN (>89) 8 ML/MIN (>89) Platelet Estimate LOW (NORMAL) Platelet Morphology Comment NORMAL (NORMAL) Total Protein 6.5 GM/DL (6.4-8.2) Albumin 3.9 GM/DL (3.4-5.0) Alkaline Phosphatase 69 U/L (45-117) Aspartate Amino Transf (AST/SGOT) 62 U/L (15-37) Alanine Aminotransferase (ALT/SGPT) 19 U/L (10-53) Total Bilirubin 1.2 MG/DL (0.2-1.0) Test 06/25/17 18:55 06/26/17 04:40 Hemoglobin 7.6 GM/DL (11.6-15.3) 7.2 GM/DL (11.6-15.3) Hematocrit 23.1 % (35.0-46.0) 22.0 % (35.0-46.0) White Blood Count 16.5 TH/MM3 (4.0-11.0) Red Blood Count 2.59 MIL/MM3 (4.00-5.30) Mean Corpuscular Volume 84.9 FL (80.0-100.0) Mean Corpuscular Hemoglobin 27.9 PG (27.0-34.0) Mean Corpuscular Hemoglobin Concent 32.9 % (32.0-36.0) Red Cell Distribution Width 18.0 % (11.6-17.2) Platelet Count 73 TH/MM3 (150-450) Mean Platelet Volume 9.3 FL (7.0-11.0) Neutrophils (%) (Auto) 96.1 % (16.0-70.0) Lymphocytes (%) (Auto) 1.0 % (9.0-44.0) Monocytes (%) (Auto) 2.6 % (0.0-8.0) Eosinophils (%) (Auto) 0.3 % (0.0-4.0) Basophils (%) (Auto) 0.0 % (0.0-2.0) Neutrophils # (Auto) 15.9 TH/MM3 (1.8-7.7) Lymphocytes # (Auto) 0.2 TH/MM3 (1.0-4.8) Monocytes # (Auto) 0.4 TH/MM3 (0-0.9) Eosinophils # (Auto) 0.0 TH/MM3 (0-0.4) Basophils # (Auto) 0.0 TH/MM3 (0-0.2) CBC Comment AUTO DIFF Differential Comment AUTO DIFF CONFIRMED Platelet Estimate LOW (NORMAL) Tear Drop Cells 1+ (NORMAL) Keratocytes 1+ (NORMAL) Blood Urea Nitrogen 119 MG/DL (7-18) Creatinine 6.70 MG/DL (0.50-1.00) Random Glucose 142 MG/DL (74-106) Albumin 3.7 GM/DL (3.4-5.0) Calcium Level 8.4 MG/DL (8.5-10.1) Phosphorus Level 8.4 MG/DL (2.5-4.9) Sodium Level 138 MEQ/L (136-145) Potassium Level 4.9 MEQ/L (3.5-5.1) Chloride Level 98 MEQ/L (98-107) Carbon Dioxide Level 26.5 MEQ/L (21.0-32.0) Anion Gap 14 MEQ/L (5-15) Estimat Glomerular Filtration Rate 6 ML/MIN (>89) (Sivan Hernandez) Result Diagram: 06/26/1743906/26/17439 Procedures 06/01-endotracheal intubation. 06/01-hemodialysis catheter placement in the right IJ vein 06/12-endotracheal intubation 06/12-left IJ central venous catheter placement 06/19-colonoscopy showing ulcers in the cecum, ascending colon, transverse colon and sigmoid diverticulosis. Biopsies taken. 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 She has been twice, in the first and was then during her second marriage. She moved to [place] in 1993 and lives in her own home since that time. She has 1 daughter, Doorthea Gonzalez who lives in [place]. Spiritual: She is a non-practicing Faith who would accept senior asp net developer visits. Legal: She is currently able to make decisions for herself, however has designated her daughter Dorothea as her healthcare surrogate. Ethical issues impacting care: None noted at this time . Important Contacts Daughter-Dorothea Gonzalez Prognosis Her prognosis is guarded. She has been intubated twice and has required BiPAP to prevent a third intubation. She has smoked for approximately 60 years is morbidly obese and sedentary. She is now developed end-stage renal disease and is on dialysis. She has uncontrolled diabetes mellitus and anemia. She was found to have multiple ulcers on colonoscopy and is now on Procrit for combination anemia of chronic disease and GI blood loss. Given her debility from extended hospitalization and baseline decline she is at significant risk for falls, poor self-care and recurrent hospitalizations. . Code Status: No Code Plan PLAN: Legal decision maker: She is currently able to make her own decisions but has designated her daughter, Dorothea Gonzalez as the healthcare surrogate decision- maker. Goals: Aggressive short of CPR. CODE STATUS: DNR. Patient declined completing community DNR form at this time , she stated "I am not in the mood for this" during discussion, will follow up again another visit. SYMPTOMS: * Dyspnea: She remains on oxygen at this time. She states that she is not going to smoke anymore and this was encouraged. She is currently receiving duo nebs, Solu-Medrol, Symbicort, Ativan, Ancef and vancomycin. She remains at risk for continued respiratory compromise. * Anxiety: She has a chronic baseline anxiety for which she took Xanax at home. Her anxiety will be a barrier to her resolution to quit smoking. No recommendations at this time. Palliative care will continue to follow the patient during hospital course as condition evolves, to assist patient/decision-maker with understanding of their medical conditions, weighing benefits/burdens of treatment options, for clarification of goals of treatment. Additionally will assist with any symptoms of palliative concern. . (Sivan Hernandez) Attestation To help prompt me to consider important information that might be impacting today's encounter and assessment, information from prior notes written by myself or my colleagues may have been "brought forward" into today's note. My signature on this note, however, is an attestation that I personally performed the exam, history, and/or decision-making noted today, and, unless otherwise indicated, the interactions with patient, family, and staff as well as the review of records all occurred today. I also attest that the listed assessment and stated plan reflect my best clinical judgment today based on the combination of historical information, prior notes, and today's exam/ interactions. When time spent is documented, it refers only to time spent today by the signer, or if indicated, combined time spent today by collaborating physician/nurse practitioner. (Sivan Hernandez) Collaborating MD Comments Discussed with EMIL, agree with assessment and plan (Tato Quintanilla MD) Sivan Hernandez Jun 26, 2017 15:44 Tato Quintanilla MD Jun 27, 2017 09:55
--- NOTE | 2017-06-26 16:36 | HHI.PR ---
Subjective Remarks Follow-up GI bleed/chronic kidney disease stage IV on hemodialysis/PAF 06/26/17-patient seen and examined, she had hemodialysis today with 1.5 L out. Alert and oriented 3. Currently afebrile Objective Vitals Vital Signs Date Time Temp Pulse Resp B/P (MAP) Pulse Ox O2 Delivery O2 Flow Rate FiO2 06/26/17 14:00 108 06/26/17 12:00 100 06/26/17 12:00 98.4 100 23 132/55 (80) 95 06/26/17 10:10 97 Nasal Cannula 3.00 06/26/17 10:00 98 06/26/17 08:15 92 17 110/58 (75) 93 06/26/17 08:00 97.6 82 17 151/65 (93) 96 06/26/17 08:00 84 06/26/17 07:00 96 Nasal Cannula 3.00 06/26/17 06:00 79 06/26/17 05:00 92 20 98 06/26/17 04:00 98.7 80 17 108/49 (68) 93 06/26/17 04:00 91 06/26/17 02:46 94 48 108/49 (68) 90 06/26/17 00:00 98.2 96 17 135/76 (95) 95 06/26/17 00:00 112 06/25/17 23:50 98.2 96 18 135/76 (95) 95 06/25/17 20:00 108 06/25/17 20:00 97.6 100 15 162/65 (97) 97 06/25/17 19:55 98 Nasal Cannula 4.00 06/25/17 19:00 97 Nasal Cannula 3.00 06/25/17 18:00 152/68 (96) 06/25/17 18:00 92 06/25/17 17:16 90 18 152/57 (88) 100 I/O 06/25/17 06/25/17 06/25/17 06/26/17 06/26/17 06/26/17 06:59 14:59 22:59 06:59 14:59 22:59 Intake Total 60 ml 380 ml 60 ml 100 ml Output Total 400 ml 150 ml 1500 ml Balance -340 ml 380 ml -90 ml -1400 ml Intake Oral 60 ml 380 ml 60 ml IV Total 100 ml Stool Total 400 ml 150 ml Hemodialysis 1500 ml # Voids 0 2 # Bowel Movements 3 Result Diagram: 06/26/17 0440 06/26/17 0440 Imaging Last Impressions Upper Extremity Ultrasound 06/22/17 0000 Signed Impressions: Service Date/Time: June 16:01 - CONCLUSION: Deep venous thrombus within left internal jugular vein. Thrombus within the left cephalic vein at the antecubital fossa and proximal forearm. Ritchie Dumont MD Central Venous Line 06/22/17 0000 Signed Impressions: Service Date/Time: June 00:00 - CONCLUSION: Uncomplicated catheter removal. Robles Corral MD Catheter Placement X-Ray 06/22/17 0000 Signed Impressions: Service Date/Time: June 14:04 - CONCLUSION: Uncomplicated PermaCath placement as above. Robles Corral MD Chest X-Ray 06/20/17 0000 Signed Impressions: Service Date/Time: Tuesday, June 20, 2017 10:53 - CONCLUSION: Stable chest x-ray with small bibasilar opacities, right greater than left. These likely represent small pleural effusions with associated volume loss and/or consolidation. Christ Heller MD Renal Ultrasound 05/31/17 0000 Signed Impressions: Service Date/Time: Wednesday, May 31, 2017 08:54 - CONCLUSION: 1. Abnormal appearance to the left kidney with diminutive size and poor delineation of the parenchymal architecture. 2. No gross abnormality seen in the right kidney. Aramis Scott MD Objective Remarks GENERAL: NAD SKIN: Warm and dry. HEAD: Normocephalic. EYES: No scleral icterus. No injection or drainage. NECK: Supple, trachea midline. No JVD or lymphadenopathy. CARDIOVASCULAR: Regular rate and rhythm without murmurs, gallops, or rubs. RESPIRATORY: Breath sounds equal bilaterally. No accessory muscle use. GASTROINTESTINAL: Abdomen soft, non-tender, nondistended. MUSCULOSKELETAL: No cyanosis, or edema. BACK: Nontender without obvious deformity. No CVA tenderness. Date of Insertion: Jun 12, 2017 Line: Central Venous Catheter Side: Left Location: Internal, Jugular A/P Problem List: (1) Acute renal failure ICD Code: N17.9 - Acute kidney failure, unspecified Status: Acute (2) Community acquired pneumonia ICD Code: J18.9 - Pneumonia, unspecified organism Status: Resolved (3) Anxiety ICD Code: F41.9 - Anxiety disorder, unspecified Status: Chronic (4) COPD exacerbation ICD Code: J44.1 - Chronic obstructive pulmonary disease with (acute) exacerbation Status: Acute (5) Paroxysmal atrial fibrillation ICD Code: I48.0 - Paroxysmal atrial fibrillation Status: Acute (6) Anemia ICD Code: D64.9 - Anemia, unspecified Status: Chronic (7) DM2 (diabetes mellitus, type 2) ICD Code: E11.9 - Type 2 diabetes mellitus without complications Status: Chronic (8) Acute and chronic respiratory failure ICD Code: J96.20 - Acute and chronic respiratory failure, unspecified whether with hypoxia or hypercapnia Status: Acute (9) Atrial fibrillation with RVR ICD Code: I48.91 - Unspecified atrial fibrillation Status: Resolved Assessment and Plan 76 year-old female with GI bleedin/13 s/p EGD, colonoscopy: gastritis, ulcer in cecum with visible vessel - clipped, , ascending and transverse colon ulcer, sigmoid diverticulosis, internal and external hemorrhoids. repeat upper endoscopy 06/23 which revealed gastropathy with gastritis - Continue PPI, Lopressor for gastropathy -Monitor H&H CKD stage 4 and progressing to HD dependent: Currently on Hemodialysis Monday/Monday and Monday per nephrology On calcium acetate 1334 mg 3 times a day Acute respiratory failure/COPD exacerbation: - Patient is status post intubation/ extubation multiple times. -Continue with prednisone 20 mg by mouth twice a day. duo nebs as needed. Supplemental oxygen - Pulmonary medicine following Afib with RVR. Continue Cardizem 240 mg QD. Metoprolol 12.5 mg PO q 8hr. - Monitor. Not a candidate for anticoagulation currently given GI bleeding. -2d echo - LVER 50-55%, possibly lipomatous hypertrophy of interatrial septum -Consult cardiology if rate control and low BP remains an issue - hold hydralazine she is hypotensive after dialysis Anxiety disorder NOS Alprazolam 0.5 mg by mouth every 8hours as needed for anxiety/home medication for anxiety Acetaminophen/hydrocodone 5/325 one tablet every 6 hours as needed Pain 1-5. Morphine sulfate 2 mg IV every 4 hours as needed pain 6-10 Diabetes mellitus Levemir 25 units subcut q12 hours Continue with SSI- medium scale with Accu-Cheks every before meals/at bedtime with Novolin R. GI prophylaxis with pantoprazole 40 mill grams po twice a day and DVT prophylaxis with SCDs and no pharmacological prophylaxis in light of melena stools, cecal ulcer Thrombocytopenia Counts stable at 100. monitor CBC. Anemia of acute blood loss cont feso4, epogen monitor CBC. Problem Qualifiers (1) Acute renal failure: Qualified Codes: N17.9 - Acute kidney failure, unspecified Jamie Blackwood MD Jun 26, 2017 16:36
--- NOTE | 2017-06-26 18:49 | HHI.PR ---
Subjective Remarks 76 YOWF with VDRF,Ac renal Failure,DM, Met acidosis No Fever Alert awake feels weak, mild sob Breathing better Had HD, 1.5 L fluid removed Objective Vital Signs Vital Signs Date Time Temp Pulse Resp B/P (MAP) Pulse Ox O2 Delivery O2 Flow Rate FiO2 06/26/17 16:00 86 06/26/17 16:00 98.4 86 15 138/63 (88) 98 06/26/17 14:00 108 06/26/17 12:00 100 06/26/17 12:00 98.4 100 23 132/55 (80) 95 06/26/17 10:10 97 Nasal Cannula 3.00 06/26/17 10:00 98 06/26/17 08:15 92 17 110/58 (75) 93 06/26/17 08:00 97.6 82 17 151/65 (93) 96 06/26/17 08:00 84 06/26/17 07:00 96 Nasal Cannula 3.00 06/26/17 06:00 79 06/26/17 05:00 92 20 98 06/26/17 04:00 98.7 80 17 108/49 (68) 93 06/26/17 04:00 91 06/26/17 02:46 94 48 108/49 (68) 90 06/26/17 00:00 98.2 96 17 135/76 (95) 95 06/26/17 00:00 112 06/25/17 23:50 98.2 96 18 135/76 (95) 95 06/25/17 20:00 108 06/25/17 20:00 97.6 100 15 162/65 (97) 97 06/25/17 19:55 98 Nasal Cannula 4.00 06/25/17 19:00 97 Nasal Cannula 3.00 I/O 06/25/17 06/25/17 06/25/17 06/26/17 06/26/17 06/26/17 07:00 15:00 23:00 07:00 15:00 23:00 Intake Total 60 ml 380 ml 60 ml 100 ml Output Total 400 ml 150 ml 1500 ml Balance -340 ml 380 ml -90 ml -1400 ml Intake Oral 60 ml 380 ml 60 ml IV Total 100 ml Stool Total 400 ml 150 ml Hemodialysis 1500 ml # Voids 0 2 # Bowel Movements 3 Result Diagram: 06/26/17 0440 06/26/17 0440 Objective Remarks GENERAL: WBWN WF, On NC SKIN: Warm and dry. HEAD: Normocephalic. EYES: No scleral icterus. No injection or drainage. NECK: Supple, trachea midline. No JVD or lymphadenopathy. CARDIOVASCULAR: Regular rate and rhythm without murmurs, gallops, or rubs. RESPIRATORY: Breath sounds equal bilaterally. No accessory muscle use. GASTROINTESTINAL: Abdomen soft, non-tender, nondistended. MUSCULOSKELETAL: No cyanosis, or edema. BACK: Nontender without obvious deformity. No CVA tenderness. A/P Assessment and Plan VDRF, s/p Extubation COPD Ac renal Failure DM Nicotine use AF with RVR, converted to NSR PLAN: Supplement 02, keep sat 88-92% Monitor RYAN Tucker qid. CPAP prn Monitor H/H Jac Hammonds MD Jun 26, 2017 18:49
[2017-06-26] MEDS: RESP: ALBUTEROL 2.5 MG/3 ML NEB (PRN) NEB (20:05)
[2017-06-26] MEDS: ATORVASTATIN 40 MG TAB PO SCH (20:51)
[2017-06-27] VITALS (34 sets, daily range): BP systolic 118–165; BP diastolic 45–77; PULSE 84–138; RESP 15–29; TEMP 97.7–98.8; O2SAT 93–99
[2017-06-27] MEDS: CHLORHEXIDINE GLUCONATE 2 % 1 PACK (2 CLOTHS) TOP SCH (04:00)
[2017-06-27 04:53] LABS: MEAN CELL VOLUME 86.7 FL (80.0-100.0); MEAN CORPUSCULAR HEMOGLOBIN 28.6 PG (27.0-34.0); PLATELET COUNT 46 TH/MM3 (150-450); RED BLOOD COUNT 2.22 MIL/MM3 (4.00-5.30); RED CELL DISTRIBUTION WIDTH 18.7 % (11.6-17.2); WHITE BLOOD COUNT 13.3 TH/MM3 (4.0-11.0)
[2017-06-27 05:03] LABS: REVIEW FLAG FINAL
[2017-06-27 05:04] LABS: HEMATOCRIT 19.3 % (35.0-46.0)
[2017-06-27] MEDS ORDERED: SODIUM CHLOR 0.9% 250 ML INJ 250 ML IV ONE ×2 (05:30→14:45)
[2017-06-27] MEDS: METOPROLOL TARTRATE 25 MG TAB PO SCH ×3 (05:35→22:00)
[2017-06-27] MEDS: methylPREDNISolone SOD SUCC 40 MG/1 ML VIAL IV PUSH SCH ×3 (05:35→22:45)
[2017-06-27 06:37] LABS: POTASSIUM 4.1 MEQ/L (3.5-5.1)
[2017-06-27] MEDS: INSULIN NovoLIN REGULAR SUPPLEMENTAL SCALE SQ SCH ×4 (08:00→21:00)
[2017-06-27] MEDS: CALCIUM ACETATE 667 MG CAP PO SCH ×3 (08:44→19:42)
[2017-06-27] MEDS: PANTOPRAZOLE SOD 40 MG DELAYED RELEASE TAB PO SCH ×2 (08:44→21:00)
[2017-06-27] MEDS: BUDESONIDE-FORMOTEROL 160/4.5 MCG INHALER INH SCH ×2 (08:44→21:00)
[2017-06-27] MEDS: FERROUS SULFATE 325 MG (65 MG ELEMENTAL IRON) TAB PO SCH (08:44)
[2017-06-27] MEDS: ISOSORBIDE MONONITRATE 30 MG TAB PO SCH (08:44)
[2017-06-27] MEDS: DILTIAZEM-CD 240 MG CAP ER PO SCH (08:44)
[2017-06-27] MEDS: VITAMIN B CMPLX/VITC/FOLIC AC CAP PO SCH (08:45)
[2017-06-27] MEDS: SODIUM CHLORIDE 0.9% FLUSH 10 ML FLUSH IV FLUSH SCH ×3 (08:52→21:00)
[2017-06-27] MEDS: INSULIN DETEMIR 100 UNITS/ML VIAL SQ SCH ×2 (08:57→21:00)
--- NOTE | 2017-06-27 11:58 | HHI.PR ---
Subjective Remarks Follow-up GI bleed/chronic kidney disease stage IV on hemodialysis/PAF 06/26/17-patient seen and examined, she had hemodialysis today with 1.5 L out. Alert and oriented 3. Currently afebrile 06/27/17-patient seen and examined, had episode of GI bleed last night. Currently receiving second unit of blood. Patient does not want anymore EGD Objective Vitals Vital Signs Date Time Temp Pulse Resp B/P (MAP) Pulse Ox O2 Delivery O2 Flow Rate FiO2 06/27/17 09:30 97.7 96 19 160/47 97 06/27/17 09:26 92 18 160/47 (84) 96 06/27/17 09:21 98.8 96 18 139/56 96 06/27/17 09:13 92 06/27/17 09:13 92 18 139/56 (83) 95 06/27/17 09:09 98.6 93 22 136/48 96 06/27/17 09:00 100 06/27/17 09:00 100 29 136/48 (77) 94 06/27/17 08:00 95 Nasal Cannula 3.00 06/27/17 08:00 92 18 130/58 (82) 99 06/27/17 07:15 97 Nasal Cannula 3.00 06/27/17 07:00 86 06/27/17 06:00 92 06/27/17 04:41 98.6 94 17 140/48 (78) 98 06/27/17 04:41 94 06/27/17 04:00 96 06/27/17 04:00 96 16 99 06/27/17 02:00 100 06/27/17 01:00 100 17 118/45 (69) 97 06/27/17 00:00 98.8 92 15 134/47 (76) 98 06/27/17 00:00 92 06/26/17 20:06 95 Nasal Cannula 3.00 06/26/17 20:00 98.5 90 24 131/51 (77) 95 06/26/17 20:00 88 06/26/17 19:00 95 Nasal Cannula 3.00 06/26/17 18:00 88 06/26/17 16:00 86 06/26/17 16:00 98.4 86 15 138/63 (88) 98 06/26/17 14:00 108 06/26/17 12:00 100 06/26/17 12:00 98.4 100 23 132/55 (80) 95 I/O 06/26/17 06/26/17 06/26/17 06/27/17 06/27/17 06/27/17 07:00 15:00 23:00 07:00 15:00 23:00 Intake Total 60 ml 100 ml 420 ml 40 ml 680 ml Output Total 150 ml 1500 ml 750 ml 150 ml Balance -90 ml -1400 ml -330 ml -110 ml 680 ml Intake Oral 60 ml 420 ml 40 ml IV Total 100 ml Packed Cells 400 ml Blood Product IV Normal Saline Flush 280 ml Stool Total 150 ml 750 ml 150 ml Hemodialysis 1500 ml # Voids 2 1 0 Result Diagram: 06/27/1743606/27/17436 Objective Remarks GENERAL: NAD SKIN: Warm and dry. HEAD: Normocephalic. EYES: No scleral icterus. No injection or drainage. NECK: Supple, trachea midline. No JVD or lymphadenopathy. CARDIOVASCULAR: Regular rate and rhythm without murmurs, gallops, or rubs. RESPIRATORY: Breath sounds equal bilaterally. No accessory muscle use. GASTROINTESTINAL: Abdomen soft, non-tender, nondistended. MUSCULOSKELETAL: No cyanosis, or edema. BACK: Nontender without obvious deformity. No CVA tenderness. Date of Insertion: Jun 12, 2017 Line: Central Venous Catheter Side: Left Location: Internal, Jugular A/P Problem List: (1) Acute renal failure ICD Code: N17.9 - Acute kidney failure, unspecified Status: Acute (2) Community acquired pneumonia ICD Code: J18.9 - Pneumonia, unspecified organism Status: Resolved (3) Anxiety ICD Code: F41.9 - Anxiety disorder, unspecified Status: Chronic (4) COPD exacerbation ICD Code: J44.1 - Chronic obstructive pulmonary disease with (acute) exacerbation Status: Acute (5) Paroxysmal atrial fibrillation ICD Code: I48.0 - Paroxysmal atrial fibrillation Status: Acute (6) Anemia ICD Code: D64.9 - Anemia, unspecified Status: Chronic (7) DM2 (diabetes mellitus, type 2) ICD Code: E11.9 - Type 2 diabetes mellitus without complications Status: Chronic (8) Acute and chronic respiratory failure ICD Code: J96.20 - Acute and chronic respiratory failure, unspecified whether with hypoxia or hypercapnia Status: Acute (9) Atrial fibrillation with RVR ICD Code: I48.91 - Unspecified atrial fibrillation Status: Resolved Assessment and Plan 76 year-old female with GI bleedin/13 s/p EGD, colonoscopy: gastritis, ulcer in cecum with visible vessel - clipped, , ascending and transverse colon ulcer, sigmoid diverticulosis, internal and external hemorrhoids. repeat upper endoscopy 06/23 which revealed gastropathy with gastritis - Continue PPI, Lopressor for gastropathy -Transfuse 2 units packed red blood cell 06/27/17 -Will Have GI see the patient for evaluation due to current GI bleeding CKD stage 4 and progressing to HD dependent: Currently on Hemodialysis Monday/Monday and Monday per nephrology On calcium acetate 1334 mg 3 times a day Acute respiratory failure/COPD exacerbation: - Patient is status post intubation/ extubation multiple times. -Continue with prednisone 20 mg by mouth twice a day. duo nebs as needed. Supplemental oxygen - Pulmonary medicine following Afib with RVR. Continue Cardizem 240 mg QD. Metoprolol 12.5 mg PO q 8hr. - Monitor. Not a candidate for anticoagulation currently given GI bleeding. -2d echo - LVER 50-55%, possibly lipomatous hypertrophy of interatrial septum -Consult cardiology if rate control and low BP remains an issue - hold hydralazine she is hypotensive after dialysis Anxiety disorder NOS Alprazolam 0.5 mg by mouth every 8hours as needed for anxiety/home medication for anxiety Acetaminophen/hydrocodone 5/325 one tablet every 6 hours as needed Pain 1-5. Morphine sulfate 2 mg IV every 4 hours as needed pain 6-10 Diabetes mellitus Levemir 25 units subcut q12 hours Continue with SSI- medium scale with Accu-Cheks every before meals/at bedtime with Novolin R. GI prophylaxis with pantoprazole 40 mill grams po twice a day and DVT prophylaxis with SCDs and no pharmacological prophylaxis in light of melena stools, cecal ulcer Thrombocytopenia Transfuse 1 unit platelet today 06/27/17 Anemia of acute blood loss cont feso4, epogen monitor CBC. Problem Qualifiers (1) Acute renal failure: Qualified Codes: N17.9 - Acute kidney failure, unspecified Jamie Blackwood MD Jun 27, 2017 11:58
--- NOTE | 2017-06-27 14:16 | HHI.NPPN ---
Subjective History of Present Illness 76-year-old female with past medical history of hypertension, diabetes mellitus, hyperlipidemia, ischemic heart disease, chronic kidney disease, chronic obstructive pulmonary disease was admitted because of generalized weakness, decreased urine output. I he was called to see the patient for elevated BUN and creatinine. The patient is known to me from before. She has been following with me in the office and last time I saw her was on May 04 and at that time her creatinine was 2.2 with given the GFR of 19-20 she had advanced stage IV chronic kidney disease most likely because of diabetic nephropathy. Additional Remarks Patient is alert, with nasal cannula, not in distress. Review of Systems General General Remarks Intubated and sedated. Objective Data Data 06/27/17 06/28/17 19:00 07:00 Intake Total 680 ml Balance 680 ml Packed Cells 400 ml Blood Product IV Normal Saline Flush 280 ml Vital Signs Date Time Temp Pulse Resp B/P (MAP) Pulse Ox O2 Delivery O2 Flow Rate FiO2 06/27/17 09:30 97.7 96 19 160/47 97 06/27/17 09:26 92 18 160/47 (84) 96 06/27/17 09:21 98.8 96 18 139/56 96 06/27/17 09:13 92 06/27/17 09:13 92 18 139/56 (83) 95 06/27/17 09:09 98.6 93 22 136/48 96 06/27/17 09:00 100 06/27/17 09:00 100 29 136/48 (77) 94 06/27/17 08:00 95 Nasal Cannula 3.00 06/27/17 08:00 92 18 130/58 (82) 99 06/27/17 07:15 97 Nasal Cannula 3.00 06/27/17 07:00 86 06/27/17 06:00 92 06/27/17 04:41 98.6 94 17 140/48 (78) 98 06/27/17 04:41 94 06/27/17 04:00 96 06/27/17 04:00 96 16 99 06/27/17 02:00 100 06/27/17 01:00 100 17 118/45 (69) 97 06/27/17 00:00 98.8 92 15 134/47 (76) 98 06/27/17 00:00 92 06/26/17 20:06 95 Nasal Cannula 3.00 06/26/17 20:00 98.5 90 24 131/51 (77) 95 06/26/17 20:00 88 06/26/17 19:00 95 Nasal Cannula 3.00 06/26/17 18:00 88 06/26/17 16:00 86 06/26/17 16:00 98.4 86 15 138/63 (88) 98 -: 06/27/17 0437 06/27/17 0437 Physical Exam General Appearance: No Acute Distress, Comfortable Eyes Eye Exam: Pupils Equal Throat Throat Exam: Oral Mucosa Manteno & Moist Neck Neck Exam: Neck Supple Pulmonary Resp Exam: Breath Sounds Equal, Rhonchi, Decreased Bases, Diminished Breath Sounds, Poor Inspiratory Effort Cardiology CV Exam: Regular, Normal Sinus Rhythm Gastrointestinal/Abdomen GI Exam: Soft, Non-Tender, Bowel Sounds Present, Distended Extremeties Extremities Exam: Trace Edema Neurologic Neuro Exam: Alert, Awake, Oriented Psychiatric Psych Exam: Appropriate Responses Assessment/Plan Assessment Summary: MIRACLE/Acute Renal Failure, Hypertension, CKD Stage IV Problem List: (1) Chronic kidney disease (CKD) ICD Codes: N18.9 - Chronic kidney disease, unspecified (2) Oliguria ICD Codes: R34 - Anuria and oliguria (3) Diarrhea ICD Codes: R19.7 - Diarrhea, unspecified (4) Metabolic acidosis ICD Codes: E87.2 - Acidosis Status: Acute (5) Uremia ICD Codes: N19 - Unspecified kidney failure Status: Acute (6) Acute renal failure ICD Codes: N17.9 - Acute kidney failure, unspecified Status: Acute Plan Patient has advance stage 4 chronic kidney disease, approach stage 5. Started on HD. Patient has COPD with high CO2 and developing SOB off and on. Off vent doing better BP is stable. Has tunneled catheter for HD Vascular called, they will do AVF as out patient. HD done yesterday. Has decrease Hgb and platelet. Consult Hematology. HD in AM. Problem Qualifiers (1) Chronic kidney disease (CKD): Qualified Codes: N18.5 - Chronic kidney disease, stage 5 (2) Acute renal failure: Qualified Codes: N17.9 - Acute kidney failure, unspecified Lexy Lee MD Jun 27, 2017 14:16
[2017-06-27] MEDS: RESP: ALBUTEROL 2.5 MG/3 ML NEB (PRN) NEB ×2 (14:36→19:52)
[2017-06-27] MEDS ORDERED: diphenhydrAMINE HCL 25 MG CAP PO PRN (18:00)
[2017-06-27] MEDS ORDERED: ACETAMINOPHEN 325 MG TAB PO PRN (18:00)
--- NOTE | 2017-06-27 18:27 | HHI.PR ---
Subjective Remarks 76 YOWF with VDRF,Ac renal Failure,DM, Met acidosis No Fever Alert awake feels weak, mild sob Breathing better has rectal bleed received 2 units PRBC Objective Vital Signs Vital Signs Date Time Temp Pulse Resp B/P (MAP) Pulse Ox O2 Delivery O2 Flow Rate FiO2 06/27/17 16:00 84 06/27/17 16:00 86 15 146/68 (94) 97 06/27/17 13:42 108 06/27/17 12:00 100 17 162/67 (98) 96 06/27/17 12:00 96 06/27/17 10:00 94 06/27/17 09:30 97.7 96 19 160/47 97 06/27/17 09:26 92 18 160/47 (84) 96 06/27/17 09:21 98.8 96 18 139/56 96 06/27/17 09:13 92 06/27/17 09:13 92 18 139/56 (83) 95 06/27/17 09:09 98.6 93 22 136/48 96 06/27/17 09:00 100 06/27/17 09:00 100 29 136/48 (77) 94 06/27/17 08:00 95 Nasal Cannula 3.00 06/27/17 08:00 92 18 130/58 (82) 99 06/27/17 07:15 97 Nasal Cannula 3.00 06/27/17 07:00 86 06/27/17 06:00 92 06/27/17 04:41 98.6 94 17 140/48 (78) 98 06/27/17 04:41 94 06/27/17 04:00 96 06/27/17 04:00 96 16 99 06/27/17 02:00 100 06/27/17 01:00 100 17 118/45 (69) 97 06/27/17 00:00 98.8 92 15 134/47 (76) 98 06/27/17 00:00 92 06/26/17 20:06 95 Nasal Cannula 3.00 06/26/17 20:00 98.5 90 24 131/51 (77) 95 06/26/17 20:00 88 06/26/17 19:00 95 Nasal Cannula 3.00 I/O 06/26/17 06/26/17 06/26/17 06/27/17 06/27/1706/27/17 07:00 15:00 23:00 07:00 15:00 23:00 Intake Total 60 ml 100 ml 420 ml 40 ml 680 ml Output Total 150 ml 1500 ml 750 ml 150 ml Balance -90 ml -1400 ml -330 ml -110 ml 680 ml Intake Oral 60 ml 420 ml 40 ml IV Total 100 ml Packed Cells 400 ml Blood Product IV Normal Saline Flush 280 ml Stool Total 150 ml 750 ml 150 ml Hemodialysis 1500 ml # Voids 2 1 0 Result Diagram: 06/27/1743606/27/17436 Objective Remarks GENERAL: WBWN WF, On NC SKIN: Warm and dry. HEAD: Normocephalic. EYES: No scleral icterus. No injection or drainage. NECK: Supple, trachea midline. No JVD or lymphadenopathy. CARDIOVASCULAR: Regular rate and rhythm without murmurs, gallops, or rubs. RESPIRATORY: Breath sounds equal bilaterally. No accessory muscle use. GASTROINTESTINAL: Abdomen soft, non-tender, nondistended. MUSCULOSKELETAL: No cyanosis, or edema. BACK: Nontender without obvious deformity. No CVA tenderness. A/P Assessment and Plan VDRF, s/p Extubation COPD Ac renal Failure DM Nicotine use AF with RVR, converted to NSR PLAN: Supplement 02, keep sat 88-92% Monitor BS Caitlin qid. CPAP prn Monitor H/H Platlets transfusion Jac Hammonds MD Jun 27, 2017 18:27
[2017-06-27 18:46] LABS: APTT (PATIENT) 32.2 SEC (24.3-30.1); INTERNATIONAL NORMALIZED RATIO 2.6 RATIO; PROTHROMBIN TIME - PATIENT 30.5 SEC (9.8-11.6)
[2017-06-27 18:59] LABS: INDIRECT BILIRUBIN 1.2 MG/DL (0.0-0.8); TOTAL BILIRUBIN ADULT 1.7 MG/DL (0.2-1.0)
[2017-06-27] MEDS ORDERED: PEG (High)/E-LYTE SOLN 4000 ML BTL PO ONE (19:00)
--- NOTE | 2017-06-27 19:02 | MB ---
cc: ANTOINE LEE MD, RUBY ANNE E. M.D. DATE OF CONSULTATION 06/27/2017 DATE OF [address] Lee. CHIEF COMPLAINT Dr. Lee requested consultation for Ms. Wilkinson regarding worsening anemia and thrombocytopenia. HISTORY OF THE PRESENT ILLNESS Ms. Wilkinson is a 76-year-old woman with multiple medical problems. She has a history of hypertension, diabetes, hyperlipidemia, ischemic heart disease, chronic kidney disease, COPD. She was admitted with decreased urine output and generalized weakness. She is a patient of Dr. Lee. She was treated conservatively initially and ultimately needed hemodialysis. During the course of her hospitalization, gastroenterology was consulted. She had loose bowel movement, diarrhea. C. difficile was negative. Her hemoglobin had decreased. Her stool was negative for occult blood. She underwent endoscopic evaluation by Dr. Moseley 06/19/2017. The findings showed gastritis in the antrum. There is a large hiatal hernia. Colonoscopy showed ulcer in the cecum. These were treated with clips. There is no active bleeding. She does not have esophageal varices. Despite GI procedures, her hemoglobin had trended down. Her hemoglobin was 7.2 on 06/26/2017. It was 6.3 at the time of the consultation. Her platelet count was also decreasing. Her platelet count was normal 225 on admission. It was around 100,000 in the beginning of June and decreased to less than 100,000 since June 24. It is 46,000 at the time of the consultation. Hematology oncology is consulted for the above, anemia and thrombocytopenia. Review of the electronic medical record shows a slight increase in the bilirubin. She has been transfused several units of packed red blood cells and fresh frozen plasma. There is no DIET TOLERATED, no LDH. Her course is complicated by deep venous thrombosis within the left internal jugular vein and thrombus within the left cephalic vein and antecubital fossa. She was placed on unfractionated heparin. She has multiple heparin injections in her abdomen. On the day of the consultation she was awake, alert, frustrated and wishing to go home. She has been hospitalized for several weeks. She was sitting in bright red blood after a bowel movement. She had just received 2 units of packed red blood cells. A unit of platelet is hanging. PAST MEDICAL HISTORY 1. Hypertension. 2. Diabetes. 3. Hyperlipidemia. 4. Chronic kidney disease - end-stage renal disease on hemodialysis. 5. Chronic obstructive pulmonary disease. 6. Hiatal hernia. 7. Gastritis. 8. Cecal ulcer. 9. Anemia and thrombocytopenia. PAST SURGICAL HISTORY 1. Cholecystectomy. 2. Hysterectomy. 3. Upper endoscopy. 4. Colonoscopy. SOCIAL HISTORY Single. Smokes one-half pack a day. Denies any alcohol or illicit drug use. FAMILY HISTORY Niece is on dialysis with kidney disease. ALLERGIES SULFA. MEDICATIONS Current medications: 1. Lopressor. 2. Solu-Medrol. 3. Diltiazem. 4. Imdur. 5. Albuterol nebulizer. 6. Protonix. 7. Levemir. 8. Symbicort. 9. Imodium as needed. 10. Ferrous sulfate. 11. Nephrocaps. 12. Erythropoietin. 13. PhosLo. 14. Chlorhexidine. 15. Mannitol as needed. 16. Heparin as needed. 17. PHYSICAL EXAMINATION VITAL SIGNS: Temperature 97.7, heart rate 84-100. Respiratory rate 15, blood pressure 146/68, saturation 97%. GENERAL: Ms. Wilkinson is a pale appearing elderly woman. HEENT: Pupils are round, reactive to light and accommodation. Conjunctivae is pale. Oropharynx is clear. NECK: Supple. LUNGS: Clear. CARDIOVASCULAR: Exam reveals tachycardia. ABDOMEN: Benign with multiple ecchymotic areas from injection. EXTREMITIES: Lower extremity with no edema. NEUROLOGICAL: Exam is nonfocal. SKIN: Right chest wall central line with bruise, right neck bruise. RECTAL: There is bright red blood per rectum. LABORATORY DATA Significant for a hemoglobin of 6.3, platelet count of 46,000. BUN of 72, creatinine of 4.5. ASSESSMENT AND PLAN Ms. Wilkinson is a 76-year-old woman with multiple medical problems described above. She is admitted with oliguria and generalized weakness. She has had a complicated hospital course. Hematology oncology is consulted currently for anemia and thrombocytopenia. She is acutely bleeding with bright red blood per rectum. I discussed with her nurse at bedside our plans to support her. She looks hemodynamically stable despite the amount of blood that came out of her rectum. We will continue platelet transfusion and plan 2 additional units of packed red blood cells are ordered. The case was discussed with gastroenterology who plan to perform a prep and proceed with endoscopic evaluation to see if they can stop the bleeding from the suspected lesion in the cecum as well as the gastritis. A call out was made to the regional cra to alert him of the patient's change. She is stable. I will call out to Dr. Lee as well. The patient is pending hemodialysis tomorrow. GI bleed seems to be the most apparent reason for the anemia and thrombocytopenia. Other etiology for the anemia is considered. HIT antibodies are checked. LDH, haptoglobin, Maria Alejandra test will be checked. We will check for post transfusion purpura. Supportive treatment continues. Her questions were answered to her satisfactory. MD SANTIAGO Vasques/CONSUELO /6:12 PM /6:32 PM
[2017-06-27 19:32] LABS: HEMATOCRIT 27.6 % (35.0-46.0); MEAN CELL VOLUME 89.5 FL (80.0-100.0); MEAN CORPUSCULAR HEMOGLOBIN 29.2 PG (27.0-34.0); MEAN CORPUSCULAR HGB CONC 32.6 % (32.0-36.0); PLATELET COUNT 99 TH/MM3 (150-450); RED BLOOD COUNT 3.09 MIL/MM3 (4.00-5.30); RED CELL DISTRIBUTION WIDTH 17.7 % (11.6-17.2); WHITE BLOOD COUNT 16.1 TH/MM3 (4.0-11.0)
[2017-06-27 19:35] LABS: REVIEW FLAG FINAL
[2017-06-27] MEDS: ATORVASTATIN 40 MG TAB PO SCH (21:00)
[2017-06-27] MEDS ORDERED: CHLORHEXIDINE GLUCONATE 2 % 1 PACK (2 CLOTHS)(extra cloths) TOPICAL PRN (22:45)
--- NOTE | 2017-06-27 23:07 | HHI.HP ---
[facility] Service Critical Care Medicine Primary Care Physician Camron Figueroa MD Admission Diagnosis acute renal failure, metabolic acidosis, uremia Diagnosis: (1) Community acquired pneumonia Diagnosis: Secondary (2) Anxiety Diagnosis: Secondary (3) COPD exacerbation Diagnosis: Secondary (4) Paroxysmal atrial fibrillation Diagnosis: Secondary (5) Anemia Diagnosis: Secondary (6) DM2 (diabetes mellitus, type 2) Diagnosis: Secondary (7) Atrial fibrillation with RVR Diagnosis: Secondary (8) GI bleed Diagnosis: Principal (9) Acute blood loss anemia Diagnosis: Principal (10) Thrombocytopenia Diagnosis: Secondary Travel History International Travel<30 Days: No Contact w/Intl Traveler <30 Da: No Traveled to Known Affected Are: No History of Present Illness Original admission to [facility] 05/31/17 76-year-old female with PMH of hypertension, hyperlipidemia, diabetes , chronic obstructive pulmonary disease, CKD who was originally admitted to [facility] on 05/31/17 with nausea, vomiting, diarrhea. She had chronic renal insufficiency and was oliguric with metabolic acidemia. She was intubated for respiratory failure and [facility] was consulted on 06/01/17. She was started on hemodialysis. She was intubated 06/01-06/05. She was reintubated 06/12-06/16. She was on Bipap 06/20 and then was on NC. She hernandez had GI bleeding and underwent EGD and colonoscopy 06/[address] Moseley that showed hiatal hernia, antral gastritis. There was a cecal ulcer with visile vessel that was clipped x2. She has internal and external hemorrhoids. She underwent EGD 06/[address] Allan with severe gastropathy. She is transferred to [facility] due to GI bleeding. Reportedly she has had multiple bloody stools today. She has a rectal bag in place and has apparently had 900 ml output. She denies nausea, vomiting, or abdominal pain. She has been normotensive. Her hemoglobin was 6.3 this morning. She has received 2 units of packed red cells today and one platelet pheresis pack. Her hemoglobin is now 9. Denies h/o NSAIDs. GI planning for bleeding scan in am and repeat colonoscopy. Critical care medicine consulted by Dr. Foster. She denies CP, SOB, remainder of ROS negative. Review of Systems Constitutional: DENIES: Fever Eyes: DENIES: Blurred vision Respiratory: DENIES: Shortness of breath Cardiovascular: DENIES: Syncope Gastrointestinal: COMPLAINS OF: Bloody stools, DENIES: Abdominal pain, Nausea, Vomiting Musculoskeletal: DENIES: Joint Swelling Neurologic: DENIES: Headache Psychiatric: DENIES: Depression Past Family Social History Allergies: Coded Allergies: Sulfa (Sulfonamide Antibiotics) (Verified Allergy, Mild, 05/30/17) Past Medical History Hyperlipidemia Hypertension Anxiety Diabetes ESRD with new hemodialysis start during this hospitalization Tobacco abuse COPD Atrial fibrillation Ulcer Cecum Hiatal hernia Internal/external hemorrhoids Past Surgical History Hysterectomy Open cholecystectomy in 1987 Procedures this hospitalization: 06/01/17 right IJ vas catheter (Robbie Waite) 06/12/17 intubation (Dr. Loera ) 06/12/17 left IJ central venous line (Dr. Loera) 06/19/17 EGD - Antral gastritis, hiatal hernia, biopsy of antrum and duodenum. ( Dr. Moseley) 06/19/17 colonoscopy -Cecal ulcer with clip x2. Internal and external hemorrhoids present. (Dr. Moseley) 06/22/17 right IJ tunneled dialysis catheter Dr. Corral 06/23/17EGD severe gastropathy. Cauterization. (Dr. Anne) Reported Medications Home medications prior to admission were Lipitor 80 mg by mouth daily at bedtime Enalapril 20 mg by mouth twice a day Xanax 0.25 mg by mouth every 8 hours Lasix 20 mill grams by mouth daily Lantus 75 units subcutaneous daily at bedtime Active Ordered Medications Current Medications Medications (Trade) Dose Ordered Sig/[place] Route Start Time Stop Time Status Last Admin (NS Flush) 2 ml UNSCH PRN IV FLUSH 05/30/17 21:45 06/23/17 05:39 (NS Flush) 2 ml BID IV FLUSH 05/31/17 09:00 06/27/17 08:52 (Narcan Inj) 0.4 mg UNSCH PRN IV PUSH 05/30/17 21:45 (Lipitor) 80 mg HS PO 05/31/17 21:00 Future hold 06/26/17 20:51 (Zofran Inj) 4 mg Q6HR PRN IV PUSH 05/31/17 13:00 06/05/17 20:18 Sodium Chloride 1,000 ml @ 0 mls/hr Q0M PRN OTHER 06/01/17 09:07 06/24/17 09:31 (Heparin Inj) 8,000 units UNSCH PRN IV FLUSH 06/01/17 09:15 Sodium Chloride 1,000 ml @ 200 mls/hr Q5H PRN IV 06/01/17 09:07 06/16/17 14:53 Sodium Chloride 1,000 ml @ 0 mls/hr Q0M PRN OTHER 06/01/17 09:07 (Mannitol Inj) 12.5 gm UNSCH PRN IV 06/01/17 09:15 06/02/17 08:06 Albumin Human 100 ml @ 60 mls/hr UNSCH PRN IV 06/01/17 09:15 06/26/17 08:39 (NS Flush) 5 ml UNSCH PRN IV FLUSH 06/01/17 09:15 06/24/17 09:31 (Heparin Inj) UNSCH PRN .XX 06/01/17 09:15 06/26/17 07:58 (Gentamicin (Dialysis) Inj) 20 mg UNSCH PRN OTHER 06/01/17 09:15 06/26/17 07:57 (Zofran Inj) 4 mg UNSCH PRN IV PUSH 06/01/17 09:15 (Benadryl) 25 mg UNSCH PRN PO 06/01/17 09:15 (Nitrostat Sl) 0.4 mg UNSCH PRN SL 06/01/17 09:15 (Catapres) 0.1 mg UNSCH PRN PO 06/01/17 09:15 06/22/17 02:28 (Gelfoam 12 Mm/7 Mm Top) 1 foam UNSCH PRN TOP 06/01/17 09:15 (NS Flush) UNSCH PRN IV FLUSH 06/01/17 09:30 (Senokot) 17.2 mg Q12H PRN PO 06/01/17 18:30 (Dulcolax Supp) 10 mg DAILY PRN RECTAL 06/01/17 18:30 (Xanax) 0.5 mg Q8H PRN PO 06/06/17 13:00 06/28/17 00:53 (Epogen Inj) 10,000 units UNSCH PRN IV PUSH 06/07/17 21:30 06/26/17 07:57 (Nephrocaps) 1 cap DAILY PO 06/08/17 09:00 06/27/17 08:45 (Phoslo) 1,334 mg TID PO 06/08/17 09:00 06/27/17 19:42 (Ferrous Sulfate) 325 mg DAILY PO 06/09/17 09:00 06/27/17 08:44 (Imodium Liq) 2 mg Q4H PRN PO 06/10/17 13:00 06/21/17 20:35 (Brethine Inj) 1 mg UNSCH PRN SQ 06/12/17 08:00 (NS Flush) DAILY IV FLUSH 06/12/17 09:00 06/25/17 08:26 (NS Flush) UNSCH PRN IV FLUSH 06/12/17 08:45 (Glycerin Adult Supp) 2 gm BID PRN RECTAL 06/13/17 07:30 (Symbicort 160-4.5 Inh) 2 puff Q12HR INH 06/17/17 09:00 06/27/17 08:44 (Tylenol 650 Mg/ 20 ml Liq) 650 mg Q6H PRN PO 06/17/17 06:30 (Seymour 5-325 Mg) 1 tab Q6H PRN PO 06/17/17 06:30 (Morphine Inj) 2 mg Q4H PRN IV PUSH 06/17/17 06:30 (Levemir Inj) 25 units Q12HR SQ 06/18/17 09:00 Future Hold 06/27/17 08:57 (Protonix) 40 mg Q12HR PO 06/19/17 21:00 06/27/17 08:44 (D50w (Vial) Inj) 50 ml UNSCH PRN IV PUSH 06/20/17 17:00 (Glucagon Inj) 1 mg UNSCH PRN OTHER 06/20/17 17:00 (Albuterol Neb) 2.5 mg Q2HR NEB PRN NEB 06/22/17 06:45 06/27/17 19:52 (Apresoline) 100 mg Q8HR PO 06/22/17 14:00 Future Hold 06/24/17 05:29 (Cardizem Cd) 240 mg DAILY PO 06/22/17 09:00 06/27/17 08:44 (NovoLIN R SUPPLEMENTAL SCALE) 1 ACHS SQ 06/22/17 08:00 06/27/17 08:00 (Imdur) 30 mg DAILY@07 PO 06/22/17 07:00 06/27/17 08:44 (Trandate Inj) 10 mg Q1HR PRN IV PUSH 06/22/17 06:45 (Nitroglycerin 2% Oint) 2 inch Q6HR PRN TOPICAL 06/22/17 06:45 (Apresoline Inj) 10 mg Q30M PRN IV PUSH 06/22/17 06:45 (NS Flush) UNSCH PRN IV FLUSH 06/22/17 15:45 (Heparin Inj) UNSCH PRN IV FLUSH 06/22/17 15:45 (Lopressor) 12.5 mg Q8HR PO 06/22/17 17:30 06/27/17 22:00 (Pill Splitter) 1 ea UNSCH PRN OTHER 06/22/17 18:00 06/23/17 14:16 (Ativan) 0.5 mg Q8H PRN PO 06/24/17 12:15 Sodium Chloride 250 ml @ 15 mls/hr ONCE ONCE IV 06/27/17 14:45 06/28/17 07:24 06/27/17 14:45 (Tylenol) 650 mg Q4H PRN PO 06/27/17 18:00 (Benadryl) 25 mg Q4H PRN PO 06/27/17 18:00 Miscellaneous Information Patient in critical care unit? Ass... Q361D .XX 06/27/17 22:45 (Chlorhexidine 2% Cloth) 3 pack DAILY@04 TOPICAL 06/28/17 04:00 07/02/17 04:01 (Chlorhexidine 2% Cloth) 3 pack UNSCH PRN TOPICAL 06/27/17 22:45 07/02/17 22:31 (Mephyton Liq) 10 mg DAILY PO 06/28/17 00:30 06/29/17 09:01 Sodium Chloride 250 ml @ 15 mls/hr ONCE ONCE IV 06/28/17 00:30 06/28/17 17:09 (SoluMEDROL INJ) 40 mg Q12H IV PUSH 06/28/17 10:00 Family History Her son of colon cancer at age 55 Social History She smoked tobacco cigarettes per day for 55 years and was smoking up to the time that she was admitted to the hospital in May. No alcohol or illicit drug use She was previously living at home alone. Preparations are being made for transition to rehab. Ultimately her goal is to move to [place] near her daughter. Physical Exam Vital Signs Vital Signs Date Time Temp Pulse Resp B/P (MAP) Pulse Ox O2 Delivery O2 Flow Rate FiO2 06/27/17 21:27 104 19 128/65 (86) 97 06/27/17 21:12 108 19 143/75 (97) 97 06/27/17 20:12 94 15 165/77 (106) 97 06/27/17 19:52 97 Nasal Cannula 3.00 06/27/17 19:12 94 15 150/60 (90) 97 06/27/17 19:00 Nasal Cannula 3.00 06/27/17 18:00 94 06/27/17 16:00 84 06/27/17 16:00 86 15 146/68 (94) 97 06/27/17 13:42 108 06/27/17 12:00 100 17 162/67 (98) 96 06/27/17 12:00 96 06/27/17 10:00 94 06/27/17 09:30 97.7 96 19 160/47 97 06/27/17 09:26 92 18 160/47 (84) 96 06/27/17 09:21 98.8 96 18 139/56 96 06/27/17 09:13 92 06/27/17 09:13 92 18 139/56 (83) 95 06/27/17 09:09 98.6 93 22 136/48 96 06/27/17 09:00 100 06/27/17 09:00 100 29 136/48 (77) 94 06/27/17 08:00 95 Nasal Cannula 3.00 06/27/17 08:00 92 18 130/58 (82) 99 06/27/17 07:15 97 Nasal Cannula 3.00 06/27/17 07:00 86 06/27/17 06:00 92 06/27/17 04:41 98.6 94 17 140/48 (78) 98 06/27/17 04:41 94 06/27/17 04:00 96 06/27/17 04:00 96 16 99 06/27/17 02:00 100 06/27/17 01:00 100 17 118/45 (69) 97 06/27/17 00:00 98.8 92 15 134/47 (76) 98 06/27/17 00:00 92 Physical Exam GENERAL: Patient is 76 yo female, sitting up in [facility] bed, alert and conversant. SKIN: Warm and dry. No rash. Well-perfused. HEAD: Normocephalic. EYES: No scleral icterus. No injection or drainage. NECK: Supple, trachea midline. No JVD or lymphadenopathy. CARDIOVASCULAR: Irregularly irregular, rate in the 120s, 2/6 systolic murmur left sternal border. RESPIRATORY: Breathing comfortably on 3 L nasal cannula. No wheezes Rales or rhonchi. GASTROINTESTINAL: Abdomen protuberant, soft, mildly distended. Nontender. Bowel sounds present. MUSCULOSKELETAL: Trace edema of all extremities. There is ~ 2 cm wound on left upper arm with central eschar of ~0.5 cm. There is surrounding swelling. . No surrounding erythema or cellulitis. No fluid or exudate expressed. NEURO: Awake and oriented 4. Moves all extremities spontaneously with no focal deficit. No facial droop. Laboratory Laboratory Tests Test 06/27/17 04:37 06/27/17 18:10 06/27/17 18:30 06/27/17 19:25 White Blood Count 13.3 16.1 Red Blood Count 2.22 3.09 Hemoglobin 6.3 9.0 Hematocrit 19.3 27.6 Mean Corpuscular Volume 86.7 89.5 Mean Corpuscular Hemoglobin 28.6 29.2 Mean Corpuscular Hemoglobin Concent 33.0 32.6 Red Cell Distribution Width 18.7 17.7 Platelet Count 46 99 Mean Platelet Volume 8.8 8.3 Blood Urea Nitrogen 72 Creatinine 4.50 Random Glucose 154 Calcium Level 8.4 Sodium Level 139 Potassium Level 4.1 Chloride Level 99 Carbon Dioxide Level 30.0 Anion Gap 10 Estimat Glomerular Filtration Rate 10 Prothrombin Time 30.5 Prothromb Time International Ratio 2.6 Activated Partial Thromboplast Time 32.2 Fibrinogen 187 Total Bilirubin 1.7 Direct Bilirubin 0.5 Indirect Bilirubin 1.2 Lactate Dehydrogenase 332 Reticulocyte Count 4.0 Absolute Reticulocyte Count 124.6 Date/Time Source Procedure Growth Status 06/12/17 12:45 Blood Peripheral Aerobic Blood Culture - Final NO GROWTH IN 5 DAYS Complete 06/12/17 12:45 Blood Peripheral Anaerobic Blood Culture - Final NO GROWTH IN 5 DAYS Complete 06/13/17 18:31 Stool Stool Stool Occult Blood (MELISSA) - Final HEMOCCULT POSITIVE Complete 06/15/17 06:50 Nasal Aspirate Influenza Types A,B Antigen (MELISSA) - Final NEGATIVE FOR FLU A AND B ANTIGEN.... Complete 06/11/17 20:33 Urine Catheterized Urine Urine Culture - Final Lacey Glabrata Lacey Albicans Complete Result Diagram: 06/27/17 1925 06/27/17 0437 Caprini VTE Risk Assessment Caprini VTE Risk Assessment: Mod/High Risk (score >= 2) Caprini Risk Assessment Model Point Value = 1 Point Value = 2 Point Value = 3 Point Value = 5 Age 41-60 Minor surgery BMI > 25 kg/m2 Swollen legs Varicose veins or History of unexplained or recurrent spontaneous Oral contraceptives or hormone replacement Sepsis (< 1 month) Serious lung disease, including pneumonia (< 1 month) Abnormal pulmonary function Acute myocardial infarction Congestive heart failure (< 1 month) History of inflammatory bowel disease Medical patient at bed rest Age 61-74 Arthroscopic surgery Major open surgery (> 45 min) Laparoscopic surgery (> 45 min) Malignancy Confined to bed (> 72 hours) Immobilizing plaster cast Central venous access Age >= 75 History of VTE Family history of VTE Factor V Leiden Prothrombin [id number] Lupus anticoagulant Anticardiolipin antibodies Elevated serum homocysteine Heparin-induced thrombocytopenia Other congenital or acquired thrombophilia Stroke (< 1 month) Elective arthroplasty Hip, pelvis, or leg fracture Acute spinal cord injury (< 1 month) Prophylaxis Regimen Total Risk Factor Score Risk Level Prophylaxis Regimen 0-1 Low Early ambulation 2 Moderate Order ONE of the following: *Sequential Compression Device (SCD) *Heparin 5000 units SQ BID 3-4 Higher Order ONE of the following medications: *Heparin 5000 units SQ TID *Enoxaparin/Lovenox 40 mg SQ daily (WT < 150 kg, CrCl > 30 mL/min) *Enoxaparin/Lovenox 30 mg SQ daily (WT < 150 kg, CrCl > 10-29 mL/min) *Enoxaparin/Lovenox 30 mg SQ BID (WT < 150 kg, CrCl > 30 mL/min) AND/OR *Sequential Compression Device (SCD) 5 or more Highest Order ONE of the following medications: *Heparin 5000 units SQ TID (Preferred with Epidurals) *Enoxaparin/Lovenox 40 mg SQ daily (WT < 150 kg, CrCl > 30 mL/min) *Enoxaparin/Lovenox 30 mg SQ daily (WT < 150 kg, CrCl > 10-29 mL/min) *Enoxaparin/Lovenox 30 mg SQ BID (WT < 150 kg, CrCl > 30 mL/min) AND *Sequential Compression Device (SCD) Assessment and Plan Problem List: (1) DM2 (diabetes mellitus, type 2) ICD Code: E11.9 - Type 2 diabetes mellitus without complications Status: Chronic (2) Paroxysmal atrial fibrillation ICD Code: I48.0 - Paroxysmal atrial fibrillation Status: Acute (3) Acute blood loss anemia ICD Code: D62 - Acute posthemorrhagic anemia (4) Thrombocytopenia ICD Code: D69.6 - Thrombocytopenia, unspecified Assessment and Plan Neuro/Psych: Anxiety disorder NOS Alprazolam 0.5 mg by mouth every 8hours as needed for anxiety/home medication for anxiety Acetaminophen 650 mg liquid every 6 hours when necessary for fever Acetaminophen/hydrocodone 5/325 one tablet every 6 hours as needed Pain 1-5. two tab prn pain 6-10 Pulm: Acute hypercapnic respiratory failure - resolved Acute COPD exacerbation - resolved Tobacco abuse Extubated 06/05/17. Reintubated 06/12. Extubated 06/16. Continue with oxygen keep sats> 90%. Currently 3 L NC. Incentive spirometry while awake Albuterol/ipratropium aerosols every 4 hours with albuterol aerosols every 2 hours On budesonide/formoterol 160 g/4.5 g 2 puffs inhaled twice a day A cappella/prep every 6 hours Has been on Methylprednisolone 40 mg every 8 hours since 06/22, will start to wean to 40 mg IV q12. Pulm following, Dr. Hammonds CXR 06/20 bibasilar opacities , stable chest. CV: Hypertension Hyperlipidemia Paroxysmal atrial fibrillation in RVR. Cardizem CD 240 mg po daily Metoprolol 12.5 mg po q 8 hours. Holding lisinopril 20 mg twice a day/home medication. Echo showed 50-55% normal LV. 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 Diabetic nephropathy R Permacath placed 06/22. VAscular surgery planning for AVF as outpatient. IHD M/W/F per Nephrology, Dr. Lee. Plan for HD 06/28. Renal ultrasound 05/31 revealed medical renal disease left kidney/atrophy. Right kidney within normal limits On calcium acetate 1334 mg 3 times a day GI: Cecal ulcer with visible vessel status post clipping 2 06/19 Dr. Moseley Transverse/ascending colon ulcer Sigmoid diverticulosis Internal and external hemorrhoids On pantoprazole 40 mg po twice a day NPO. Bowel prep with Golytely for planned colonoscopy 06/28. Bleeding scan planned per GI 06/28. C diff negative. 2 06/19 s/p EGD, colonoscopy: gastritis, ulcer in cecum with visible vessel - clipped, , ascending and transverse colon ulcer, sigmoid diverticulosis, internal and external hemorrhoids. 06/23 EGD - Severe gastropathy, cauterized by Dr. Guerrero. ?cirrhosis. Check liver u/s. Viral Hepatitis panel negative 06/01 ID: Acute community acquired pneumonia (resolved) Asymptomatic candiduria Off abx, monitor for signs of infections. Will obtain blood cultures and will ultrasound wound on LUE to evaluate for abscess. Wound care consult. Will consult surgery for I and D if evidence of abscess. 06/01 Sputum Kleb pneumonia, E.coli 06/11 Urine cx: C. Glabrata and Albicans Endo: Diabetes mellitus Has been on Detemir 25 units subcut q12 hours . Will hold detemir currently while npo for colonoscopy. Continue with SSI- medium scale with Accu-Cheks every before meals/at bedtime with Novulin R. Heme: DVT L IJ Vein. Superficial thrombus left cephalic vein at the level of the antecubital fossa and proximal arm Anemia consistent with anemia of chronic kidney disease Thrombocytopenia Coagulopathy On iron sulfate 325 mg daily. Monitor CBC. Received 2 units PRBC and 1 unit platelets 06/27. Is coagulopathic with INR 2.6. Not on anticoagulation. Vitamin K 10 mg po daily x3 to ensure replete. Give 2 units FFP now. Repeat Coags and fibrinogen in am. HIT ab pending. Hematology following, Dr. Foster. Continue Epogen lorena 10,000 units with hemodialysis Not candidate for anticoagulation at this point for IJ thrombus due to active bleeding GI prophylaxis with pantoprazole 40 mill grams po twice a day and DVT prophylaxis with SCDs and no pharmacological prophylaxis in light of melena stools per consistent, cecal ulcer Lines: R IJ permacath 06/22 #7. Has a peripheral IV. We'll need additional IV access. Asked vascular access team to place additional IV. Patient states that she is agreeable to intubation if needed for procedure or for recurrent respiratory failure. She states she would be okay with trach if needed. In the setting of cardiac arrest, she does not want CPR, shocks, ACLS drugs or intubation. PT consult Palliative care following. Level III H&P Bonny Hurtado MD Jun 27, 2017 23:07
[2017-06-28] VITALS (15 sets, daily range): BP systolic 114–146; BP diastolic 64–81; PULSE 78–114; RESP 16–20; TEMP 97.4–98.3; O2SAT 94–100
[2017-06-28] MEDS ORDERED: SODIUM CHLOR 0.9% 250 ML INJ 250 ML IV ONE (00:30)
[2017-06-28] MEDS: ALPRAZolam 0.25 MG TAB PO PRN ×2 (00:53→09:44)
[2017-06-28] MEDS: PHYTONADIONE 5 MG/SWFI 5 ML ORAL SYR PO SCH ×2 (02:10→11:46)
[2017-06-28] MEDS: CHLORHEXIDINE GLUCONATE 2 % 1 PACK (2 CLOTHS)(taper/protocol) TOPICAL SCH (04:00)
[2017-06-28] MEDS: METOPROLOL TARTRATE 25 MG TAB PO SCH ×3 (06:17→21:10)
[2017-06-28] MEDS: ISOSORBIDE MONONITRATE 30 MG TAB PO SCH (06:17)
[2017-06-28] MEDS: INSULIN NovoLIN REGULAR SUPPLEMENTAL SCALE SQ SCH ×3 (08:00→18:00)
[2017-06-28] MEDS: HEPARIN SODIUM - IV 10,000 UNITS/10 ML VIAL PRN (08:48)
[2017-06-28] MEDS: GENTAMICIN SULFATE (DIALYSIS USE ONLY) 20 MG/2 ML VIAL OTHER PRN (08:48)
[2017-06-28] MEDS: EPOETIN ALFA 10,000 UNITS/ML VIAL IV PUSH PRN (08:48)
[2017-06-28] MEDS: SODIUM CHLORIDE 0.9% FLUSH 10 ML FLUSH IV FLUSH SCH ×3 (08:58→21:10)
[2017-06-28] MEDS: VITAMIN B CMPLX/VITC/FOLIC AC CAP PO SCH (09:00)
[2017-06-28] MEDS: CALCIUM ACETATE 667 MG CAP PO SCH ×3 (09:00→17:21)
[2017-06-28] MEDS: BUDESONIDE-FORMOTEROL 160/4.5 MCG INHALER INH SCH ×2 (09:00→21:10)
--- NOTE | 2017-06-28 09:19 | RADRPT ---
EXAM DATE/TIME: 06/28/2017 07:48 [facility] COMPARISON: No previous studies available for comparison. EXTERNAL COMPARISON : [facility], US ABDOMEN COMPLETE, October 24, 2016[facility], US KIDNEY-BILATERAL, Sep. INDICATIONS : Cirrhosis. MEDICAL HISTORY : Hypercholesterolemia. Chronic obstructive pulmonary disease. Hypertension. Renal failure. Diabetes. L iver disease. SURGICAL HISTORY : Cholecystectomy. Appendectomy. Hysterectomy. ENCOUNTER: Initial ACUITY: 1 day PAIN SCORE: 0/10 LOCATION: Abdomen. MEASUREMENTS: LIVER: 19.4 cm length COMMON DUCT: 8 mm RIGHT KIDNEY: 10.9 x 5.0 x 4.5 cm SPLEEN: 10.7 cm length FINDINGS: Small bilateral pleural effusions are noted. LIVER: Increased echotexture without focal lesion or ductal dilatation. Tiny fluid adjacent to the liver. COMMON DUCT: No intraluminal mass or stone visualized. GALLBLADDER: Surgically absent. PANCREAS: The visualized portions are within normal limits. RIGHT KIDNEY: Renal echogenicity is isoechoic to liver suggesting mild chronic medical renal disease. No hydronephr osis, stone or mass. SPLEEN: No focal lesion. CONCLUSION: Echogenic liver possibly fatty infiltration. Tiny amount of fluid adjacent to the liver. Small bilate ral pleural effusions. Status post cholecystectomy. Winston Li MD on June 28, 2017 at 9:16 Board Certified Radiologist. This report was verified electronically.
--- NOTE | 2017-06-28 09:20 | RADRPT ---
EXAM DATE/TIME: 06/28/2017 08:00 [facility] COMPARISON: No previous studies available for comparison. INDICATIONS : Left arm swelling, possible abscess. MEDICAL HISTORY : Chronic obstructive pulmonary disease. Hypercholesterolemia. Hypertension. Renal failure. Diabetes. L iver disease. SURGICAL HISTORY : Cholecystectomy. Hysterectomy. Appendectomy. ENCOUNTER: Initial ACUITY: 1 day PAIN SCORE: 0/10 LOCATION: Left arm. AREA EVALUATED: Left arm, ACF and proximal forearm. FINDINGS: MASSES: None. FLUID COLLECTIONS: None. OTHER: Left cephalic vein is occluded in the antecubital fossa and proximal forearm. CONCLUSION: 1. No evidence for soft tissue abscess as questioned. 2. Thrombosed left cephalic vein in the antecubital fossa and proximal forearm. Berny Marie MD on June 28, 2017 at 9:16 Board Certified Radiologist. This report was verified electronically.
[2017-06-28] MEDS: ALBUMIN 25% INJ 100 ML IV PRN (09:22)
[2017-06-28 09:30] LABS: HEMATOCRIT 24.5 % (35.0-46.0); MEAN CELL VOLUME 87.3 FL (80.0-100.0); MEAN CORPUSCULAR HEMOGLOBIN 28.7 PG (27.0-34.0); MEAN CORPUSCULAR HGB CONC 32.9 % (32.0-36.0); PLATELET COUNT 81 TH/MM3 (150-450); RED BLOOD COUNT 2.81 MIL/MM3 (4.00-5.30); RED CELL DISTRIBUTION WIDTH 18.3 % (11.6-17.2); WHITE BLOOD COUNT 14.3 TH/MM3 (4.0-11.0)
[2017-06-28 09:34] LABS: REVIEW FLAG AUTO DIFF
[2017-06-28 09:36] LABS: APTT (PATIENT) 25.2 SEC (24.3-30.1); INTERNATIONAL NORMALIZED RATIO 1.2 RATIO; PROTHROMBIN TIME - PATIENT 13.8 SEC (9.8-11.6)
--- NOTE | 2017-06-28 09:48 | HHI.CCPN ---
Subjective Remarks/Hospital Course The patient is a 76-year-old female with past medical history of hypertension, hyperlipidemia, diabetes mellitus, COPD, chronic kidney disease, who was admitted to [facility] yesterday under hospitalist service for acute renal failure and COPD exacerbation. On arrival the patient had BUN of 99 with a creatinine of 14 and potassium level 4.8. Chest x-ray on admission showed no evidence of any acute cardiopulmonary disease. She was seen by Dr. Lee from nephrology service and placed on bicarb drip. A renal ultrasound was obtained which showed no evidence of hydronephrosis. Her renal function continued to worsen. A Halicat was called this morning for respiratory distress. She was subsequently transferred to ICU and was intubated by Dr. Davila, the ED physician. ABG post-intubation showed severe hypercapnic and metabolic acidosis with a pH of 6.89, CO2 63, bicarb 12, pAO2 211, saturation 96 % on PRVC mode rate of 14, tidal volume 500. I time one, PEEP five and FIO2 60% . Chest x-ray post-intubation showed ET tube above the brayan and bilateral interstitial pattern. Her laboratory data this morning is significant for hyperkalemia with potassium level 6.1, BUN of 118, creatinine 14.0. When seen the patient is intubated and sedated with Diprivan drip. Her current blood pressure is 179/90 with a pulse of 117. 06/02 Patient s/p HD 06/01 with 2L fluid removal, 2 L removed today as well. . Patient remains intubated on low dose Diprivan but awake, alert and follows commands. Afebrile. She went into Afib with RVR overnight and started on Amio drip. 06/03 Converted to sinus with PAC's on amiodarone. Remains on mechanical ventilation. UOP 50 ml over last 24 hours. Following commands on sedation, will do SBT. Plan for HD today per discussion with [facility]AGE. 06/04 CPAP trial terminated yesterday after patient became tachycardic, anxious. HD was not performed yesterday but plan for today per nephrology. Will use Precedex to facilitate comfort with CPAP. UOP 150. 06/05: Patient had hemodialysis today with 3 L fluid removed. Tolerating CPAP well, awake alert following commands communicating by writing. Chest x-ray remains unchanged 06/06: Overnight placed on Precedex for agitation. Also required BIPAP for hypercapnea. Weaned off Precedex by afternoon today. Currently on Xanax when necessary. At this time on BiPAP. Patient is pleasant and communicative breathing comfortably. Bilateral wheezes on exam. I have started patient on IV Solu-Medrol, Symbicort and Spiriva Reconsult 06/12: Reconsulted secondary to acute hypoxemic respiratory failure. Currently on BiPAP with significant acidosis therefore intubated. Central line placed in the left IJ. 06/13: Afebrile. Currently off phenylephrine drip. Remains intubated. Currently in sinus bradycardia. White blood cell count decreased to 16,000. Will attempt PSV trial today. 06/14: Resting comfortably in bed. Tolerated PSV trial still 8 PM last night. During tube feeds. Positive BM. Following simple commands on minimal sedation. 06/15: Return to normal sinus rhythm. Diltiazem Initiated. Will Attempt PSV Trial Again Today. Positive BMs. We'll Check C. difficile. 06/16: No acute issues overnight. Hemoglobin 7. Will transfuse 1 unit during hemodialysis. Attempt spontaneous breathing trials postdialysis with attempt extubated. 06/17: Extubated yesterday without complication of hemodialysis. -3 L. Positive BM 3. Current 4 L nasal cannula. Less lethargic as AM. 06/18: Afebrile. Tolerating diet yesterday overnight. Currently in sinus bradycardia. Positive BM. On nasal cannula and feels better than yesterday Reconsult 06/20 Reconsult for resp distress. Patient was found with labored breathing she was subsequently place on BIPAP 05/11 with 40% FIO2. Afebrile. Awake and alert , CXR showed bibasilar opacities, stable chest. 06/21 No events overnight. Off BIPAP. Awake and alert on 2L oxygen with good sats. Afebrile. Subjective 06/22: Patient currently afebrile on room air. Continues to have rhonchorous breath sounds with end expiratory wheezing. Continues to have black tarry stools. Hemoglobin stable however. Known cecal ulcer status post clipping by Dr. Moseley with transverse/ascending colon ulcers. Very pleasant. Patient is a DNR DO NOT INTUBATE. Plan for permacath today. 06/28 Patient was transferred to [facility] last night for GI bleeding. She is currently receiving HD. s/p transfusion 2units PRBC and 2U FFP. Objective Vital Signs Date Time Temp Pulse Resp B/P (MAP) Pulse Ox O2 Delivery O2 Flow Rate FiO2 06/28/17 09:00 94 Nasal Cannula 3.00 06/28/17 06:00 94 06/28/17 04:00 98.3 19 146/65 (92) Intake and Output 06/28/17 06/28/17 06/29/17 08:00 16:00 00:00 Intake Total 382 ml Output Total 500 ml Balance -118 ml Result Diagram: 06/27/17 1925 06/27/17 0437 Other Results Laboratory Tests Test 06/27/17 18:10 06/27/17 18:30 06/27/17 19:25 06/27/17 22:30 Prothrombin Time 30.5 SEC Prothromb Time International Ratio 2.6 RATIO Activated Partial Thromboplast Time 32.2 SEC Fibrinogen 187 mg/dL Total Bilirubin 1.7 MG/DL Direct Bilirubin 0.5 MG/DL Indirect Bilirubin 1.2 MG/DL Lactate Dehydrogenase 332 U/L White Blood Count 16.1 TH/MM3 Red Blood Count 3.09 MIL/MM3 Hemoglobin 9.0 GM/DL Hematocrit 27.6 % Mean Corpuscular Volume 89.5 FL Mean Corpuscular Hemoglobin 29.2 PG Mean Corpuscular Hemoglobin Concent 32.6 % Red Cell Distribution Width 17.7 % Platelet Count 99 TH/MM3 Mean Platelet Volume 8.3 FL Reticulocyte Count 4.0 % Absolute Reticulocyte Count 124.6 MIL/L Nasal Screen MRSA (PCR) MRSA NOT DETECTED Test 06/28/17 09:05 Imaging Last Impressions Upper Extremity Ultrasound 06/28/17 0000 Signed Impressions: Service Date/Time: Wednesday, June 28, 2017 08:00 - CONCLUSION: 1. No evidence for soft tissue abscess as questioned. 2. Thrombosed left cephalic vein in the antecubital fossa and proximal forearm. Berny Marie MD Liver Ultrasound 06/28/17 0000 Signed Impressions: Service Date/Time: Wednesday, June 28, 2017 07:48 - CONCLUSION: Echogenic liver possibly fatty infiltration. Tiny amount of fluid adjacent to the liver. Small bilateral pleural effusions. Status post cholecystectomy. Winston Li MD Central Venous Line 06/22/17 0000 Signed Impressions: Service Date/Time: June 00:00 - CONCLUSION: Uncomplicated catheter removal. Robles Corral MD Catheter Placement X-Ray 06/22/17 0000 Signed Impressions: Service Date/Time: June 14:04 - CONCLUSION: Uncomplicated PermaCath placement as above. Robles Corral MD Chest X-Ray 06/20/17 0000 Signed Impressions: Service Date/Time: Tuesday, June 20, 2017 10:53 - CONCLUSION: Stable chest x-ray with small bibasilar opacities, right greater than left. These likely represent small pleural effusions with associated volume loss and/or consolidation. Christ Heller MD Renal Ultrasound 05/31/17 0000 Signed Impressions: Service Date/Time: Wednesday, May 31, 2017 08:54 - CONCLUSION: 1. Abnormal appearance to the left kidney with diminutive size and poor delineation of the parenchymal architecture. 2. No gross abnormality seen in the right kidney. Aramis Scott MD Objective Remarks GENERAL: Patient is 76 yo female, sitting up in [facility] bed, alert and conversant. SKIN: Warm and dry. No rash. Well-perfused. HEAD: Normocephalic. EYES: No scleral icterus. No injection or drainage. NECK: Supple, trachea midline. No JVD or lymphadenopathy. CARDIOVASCULAR: Irregularly irregular, RESPIRATORY: Breathing comfortably on 3 L nasal cannula. No wheezes Rales or rhonchi. GASTROINTESTINAL: Abdomen protuberant, soft, mildly distended. Nontender. Bowel sounds present. MUSCULOSKELETAL: Trace edema of all extremities. There is ~ 2 cm wound on left upper arm with central eschar of ~0.5 cm. There is surrounding swelling. . No surrounding erythema or cellulitis. No fluid or exudate expressed. NEURO: Awake and oriented 4. Moves all extremities spontaneously with no focal deficit. No facial droop. Date of Insertion: Jun 12, 2017 Line: Central Venous Catheter Side: Left Location: Internal, Jugular A/P Problem List: (1) DM2 (diabetes mellitus, type 2) ICD Code: E11.9 - Type 2 diabetes mellitus without complications Status: Chronic (2) Paroxysmal atrial fibrillation ICD Code: I48.0 - Paroxysmal atrial fibrillation Status: Acute (3) Acute blood loss anemia ICD Code: D62 - Acute posthemorrhagic anemia (4) Thrombocytopenia ICD Code: D69.6 - Thrombocytopenia, unspecified Assessment and Plan Neuro/Psych: Anxiety disorder NOS Alprazolam 0.5 mg by mouth every 8hours as needed for anxiety/home medication for anxiety Acetaminophen 650 mg liquid every 6 hours when necessary for fever Acetaminophen/hydrocodone 5/325 one tablet every 6 hours as needed Pain 1-5. two tab prn pain 6-10 Pulm: Acute hypercapnic respiratory failure - resolved Acute COPD exacerbation - resolved Tobacco abuse Extubated 06/05/17. Reintubated 06/12. Extubated 06/16. Continue with oxygen keep sats> 90%. Currently 3 L NC. Incentive spirometry while awake Albuterol/ipratropium aerosols every 4 hours with albuterol aerosols every 2 hours On budesonide/formoterol 160 g/4.5 g 2 puffs inhaled twice a day A cappella/prep every 6 hours On Solumederol 40 mg IV q12. Pulm following, Dr. Hammonds CXR 06/20 bibasilar opacities , stable chest. Check CXR today CV: Hypertension Hyperlipidemia Paroxysmal atrial fibrillation in RVR. Monitor HR and BP keep MAP>65mmHg Cardizem CD 240 mg po daily Metoprolol 12.5 mg po q 8 hours. Echo showed 50-55% normal LV. Possible lipomatous hypertrophy of the inter- atrial septum Continue atorvastatin 80 mg by mouth daily Renal/FEN/: CKD Stage IV, on HD and probable ESRD with shelter dialysis. Diabetic nephropathy R Permacath placed 06/22. Vascular surgery planning for AVF as outpatient. IHD M/W/F per Nephrology, Dr. Lee. Receiving HD with 2L goal removal.. Renal ultrasound 05/31 revealed medical renal disease left kidney/atrophy. Right kidney within normal limits On calcium acetate 1334 mg 3 times a day GI: Cecal ulcer with visible vessel status post clipping 2 06/19 Dr. Moseley Transverse/ascending colon ulcer Sigmoid diverticulosis Internal and external hemorrhoids On pantoprazole 40 mg po twice a day NPO. Bowel prep with Golytely for planned colonoscopy 06/28. Bleeding scan planned per GI 06/28. C diff negative. 2 06/19 s/p EGD, colonoscopy: gastritis, ulcer in cecum with visible vessel - clipped, , ascending and transverse colon ulcer, sigmoid diverticulosis, internal and external hemorrhoids. 06/23 EGD - Severe gastropathy, cauterized by Dr. Guerrero. ?cirrhosis. US Liver: Echogenic liver possibly fatty infiltration. Tiny amount of fluid adjacent to the liver. Small bilateral pleural effusions. Status post cholecystectomy Viral Hepatitis panel negative 06/01 ID: Acute community acquired pneumonia (resolved) Asymptomatic candiduria Off abx, monitor for signs of infections. Follow up on BC. Wound care consult. US UE: No evidence for soft tissue abscess as questioned. Thrombosed left cephalic vein in the antecubital fossa and proximal forearm. 06/01 Sputum Kleb pneumonia, E.coli 06/11 Urine cx: C. Glabrata and Albicans Endo: Diabetes mellitus Detemir 25 units subcut q12 hours held as patient is NPO for colonoscopy. Continue with SSI- medium scale with Accu-Cheks Q6h Heme: DVT L IJ Vein. Superficial thrombus left cephalic vein at the level of the antecubital fossa and proximal arm Anemia consistent with anemia of chronic kidney disease Thrombocytopenia Coagulopathy On iron sulfate 325 mg daily. Monitor CBC. Received 2 units PRBC, 1 unit platelets and 2u FFP 06/27. Is coagulopathic with INR 2.6 last night. Follow up on CBC and fibrinogen HIT ab pending. Hematology following, Dr. Foster. Continue Epogen lorena 10,000 units with hemodialysis Not candidate for anticoagulation at this point for IJ thrombus due to active bleeding GI prophylaxis with pantoprazole 40 mill grams po twice a day and DVT prophylaxis with SCDs and no pharmacological prophylaxis in light of melena stools and cecal ulcer Lines: R IJ permacath 06/22 #7. Has a peripheral IV. Per Dr. Hurtado- Patient states that she is agreeable to intubation if needed for procedure or for recurrent respiratory failure. She states she would be okay with trach if needed. In the setting of cardiac arrest, she does not want CPR, shocks, ACLS drugs or intubation. PT consult Palliative care following. level 3 Felix Schultz MD Jun 28, 2017 09:48
--- NOTE | 2017-06-28 11:30 | HHI.HCPN ---
Reason for visit a. To assist with evaluation and management of symptoms including: Dyspnea, anxiety b. To assist medical decision maker(s) with: better understanding of current medical conditions; weighing benefits/burdens of medical treatment options; making medical treatment decisions. Subjective/Interval History Patient is a 76-year-old female admitted with COPD exacerbation and end-stage renal disease now on hemodialysis. On 06/20, during attempt to place dialysis access, she developed severe dyspnea and required BiPAP ventilation. She is Status post intubation 2, now extubated to 3 L nasal cannula, tolerating well. Patient seen today for follow up. Patient was transferred from [facility] to [facility] yesterday evening due to GI bleeding, her rectal bag had a reported 900 mL output of bloody stool, and her hemoglobin dropped down to 6.3. The patient received 2 units of PRBCs,1 unit of platelets, and 1 unit of FFP, status post transfusions her hemoglobin came up to 9. GI plans for bleeding scan and repeat colonoscopy today. During exam patient was receiving HD, she is resting comfortably in bed, on 3L NC, she is sleeping upon entry but awakens to verbal stimuli, she is oriented to person and place, and able to verbalize her needs. She denies any pain, nausea, vomiting, or abdominal pain. Family/friend interactions Telephone conference with patient's daughter Marlene Gonzalez, provided update regarding patient's clinical status, appreciative of update, goals remain aggressive short of CPR, patient is amenable to intubation if necessary but does not want chest compressions or shock. Patient has been apprehensive in the past regarding signing a [facility] DNR and can be reluctant to have the discussion regarding code status. . Advance Directives Health Care Surrogate: Copy in medical record Advance Directive Specifics Health Care Surrogate(s): Dorothea Gonzalez, patient's daughter Objective Vital Signs Date Time Temp Pulse Resp B/P (MAP) Pulse Ox O2 Delivery O2 Flow Rate FiO2 06/28/17 10:00 106 06/28/17 09:00 94 Nasal Cannula 3.00 06/28/17 08:00 97.8 84 18 134/64 (87) 98 06/28/17 08:00 84 06/28/17 07:00 98 Nasal Cannula 3.00 06/28/17 06:00 94 06/28/17 04:00 92 06/28/17 04:00 98.3 92 19 146/65 (92) 100 06/28/17 04:00 98.3 94 19 146/65 99 06/28/17 02:00 90 06/28/17 01:24 98.2 103 19 143/81 99 06/28/17 00:00 114 06/28/17 00:00 98.2 114 16 114/81 (92) 98 06/27/17 22:00 138 06/27/17 21:27 104 19 128/65 (86) 97 06/27/17 21:12 108 19 143/75 (97) 97 06/27/17 20:12 94 15 165/77 (106) 97 06/27/17 20:00 86 06/27/17 19:52 97 Nasal Cannula 3.00 06/27/17 19:12 94 15 150/60 (90) 97 06/27/17 19:00 Nasal Cannula 3.00 06/27/17 18:30 98.8 92 15 152/62 (92) 97 06/27/17 18:15 98.6 90 15 158/64 (95) 97 06/27/17 18:00 94 06/27/17 18:00 98.2 92 15 144/70 (94) 97 06/27/17 17:45 98.8 84 15 152/66 (94) 97 06/27/17 17:30 98.7 88 15 164/74 (104) 97 06/27/17 16:00 84 06/27/17 16:00 86 15 146/68 (94) 97 06/27/17 13:42 108 06/27/17 13:00 98.5 94 24 158/56 93 06/27/17 12:45 98.4 88 26 158/60 94 06/27/17 12:30 98.8 06/27/17 12:30 98.7 92 22 162/48 93 06/27/17 12:20 98.7 92 24 160/48 93 06/27/17 12:00 100 17 162/67 (98) 96 06/27/17 12:00 96 Intake & Output 06/28/17 06/28/17 07:00 19:00 Intake Total 600 ml Output Total 500 ml Balance 100 ml Intake Oral 60 ml IV Total 100 ml FFP 222 ml Platelets 218 ml Stool Total 500 ml . Physical Exam CONSTITUTIONAL/GENERAL: This is an elderly female patient, in no apparent distress. TUBES/LINES/DRAINS: PIV x1, Vas cath SKIN: No jaundice, rashes, or lesions. No wounds seen anteriorly. Skin temperature appropriate. Not diaphoretic. EYES: Pupils equal and round and reactive. Extraocular motions intact. No scleral icterus. No injection or drainage. Fundi not examined. ENT: Hearing grossly normal. Nose without bleeding or purulent drainage. Throat without visible erythema, exudates, masses, or lesions. CARDIOVASCULAR: Regular rate and rhythm without murmurs, gallops, or rubs. No JVD. Peripheral pulses symmetric. RESPIRATORY/CHEST: Symmetric, unlabored respirations. Clear to auscultation. Breath sounds equal bilaterally. No wheezes, rales, or rhonchi. GASTROINTESTINAL: Abdomen soft, non-tender, nondistended. No hepato-splenomegaly , or palpable masses. No guarding. Bowel sounds present. GENITOURINARY: Without palpable bladder distension. MUSCULOSKELETAL: Extremities without clubbing, cyanosis, or edema. Left arm appears less swollen. No joint tenderness or effusion noted. No calf tenderness. No mottling or clubbing. NEUROLOGICAL: Drowsy. Motor and sensory grossly within normal limits. Follows commands. Moves all extremities. PSYCHIATRIC: Cooperative. . Diagnostic Tests Laboratory Laboratory Tests Test 06/25/17 18:55 06/26/17 04:40 06/27/17 04:37 06/27/17 18:10 Hemoglobin 7.6 GM/DL (11.6-15.3) 7.2 GM/DL (11.6-15.3) 6.3 GM/DL (11.6-15.3) Hematocrit 23.1 % (35.0-46.0) 22.0 % (35.0-46.0) 19.3 % (35.0-46.0) White Blood Count 16.5 TH/MM3 (4.0-11.0) 13.3 TH/MM3 (4.0-11.0) Red Blood Count 2.59 MIL/MM3 (4.00-5.30) 2.22 MIL/MM3 (4.00-5.30) Mean Corpuscular Volume 84.9 FL (80.0-100.0) 86.7 FL (80.0-100.0) Mean Corpuscular Hemoglobin 27.9 PG (27.0-34.0) 28.6 PG (27.0-34.0) Mean Corpuscular Hemoglobin Concent 32.9 % (32.0-36.0) 33.0 % (32.0-36.0) Red Cell Distribution Width 18.0 % (11.6-17.2) 18.7 % (11.6-17.2) Platelet Count 73 TH/MM3 (150-450) 46 TH/MM3 (150-450) Mean Platelet Volume 9.3 FL (7.0-11.0) 8.8 FL (7.0-11.0) Neutrophils (%) (Auto) 96.1 % (16.0-70.0) Lymphocytes (%) (Auto) 1.0 % (9.0-44.0) Monocytes (%) (Auto) 2.6 % (0.0-8.0) Eosinophils (%) (Auto) 0.3 % (0.0-4.0) Basophils (%) (Auto) 0.0 % (0.0-2.0) Neutrophils # (Auto) 15.9 TH/MM3 (1.8-7.7) Lymphocytes # (Auto) 0.2 TH/MM3 (1.0-4.8) Monocytes # (Auto) 0.4 TH/MM3 (0-0.9) Eosinophils # (Auto) 0.0 TH/MM3 (0-0.4) Basophils # (Auto) 0.0 TH/MM3 (0-0.2) CBC Comment AUTO DIFF Differential Comment AUTO DIFF CONFIRMED Platelet Estimate LOW (NORMAL) Tear Drop Cells 1+ (NORMAL) Keratocytes 1+ (NORMAL) Blood Urea Nitrogen 119 MG/DL (7-18) 72 MG/DL (7-18) Creatinine 6.70 MG/DL (0.50-1.00) 4.50 MG/DL (0.50-1.00) Random Glucose 142 MG/DL (74-106) 154 MG/DL (74-106) Albumin 3.7 GM/DL (3.4-5.0) Calcium Level 8.4 MG/DL (8.5-10.1) 8.4 MG/DL (8.5-10.1) Phosphorus Level 8.4 MG/DL (2.5-4.9) Sodium Level 138 MEQ/L (136-145) 139 MEQ/L (136-145) Potassium Level 4.9 MEQ/L (3.5-5.1) 4.1 MEQ/L (3.5-5.1) Chloride Level 98 MEQ/L (98-107) 99 MEQ/L (98-107) Carbon Dioxide Level 26.5 MEQ/L (21.0-32.0) 30.0 MEQ/L (21.0-32.0) Anion Gap 14 MEQ/L (5-15) 10 MEQ/L (5-15) Estimat Glomerular Filtration Rate 6 ML/MIN (>89) 10 ML/MIN (>89) Prothrombin Time 30.5 SEC (9.8-11.6) Prothromb Time International Ratio 2.6 RATIO Activated Partial Thromboplast Time 32.2 SEC (24.3-30.1) Fibrinogen 187 mg/dL (227-377) Test 06/27/17 18:30 06/27/17 19:25 06/27/17 22:30 06/28/17 09:05 Total Bilirubin 1.7 MG/DL (0.2-1.0) Direct Bilirubin 0.5 MG/DL (0.0-0.2) Indirect Bilirubin 1.2 MG/DL (0.0-0.8) Lactate Dehydrogenase 332 U/L (84-246) White Blood Count 16.1 TH/MM3 (4.0-11.0) 14.3 TH/MM3 (4.0-11.0) Red Blood Count 3.09 MIL/MM3 (4.00-5.30) 2.81 MIL/MM3 (4.00-5.30) Hemoglobin 9.0 GM/DL (11.6-15.3) 8.1 GM/DL (11.6-15.3) Hematocrit 27.6 % (35.0-46.0) 24.5 % (35.0-46.0) Mean Corpuscular Volume 89.5 FL (80.0-100.0) 87.3 FL (80.0-100.0) Mean Corpuscular Hemoglobin 29.2 PG (27.0-34.0) 28.7 PG (27.0-34.0) Mean Corpuscular Hemoglobin Concent 32.6 % (32.0-36.0) 32.9 % (32.0-36.0) Red Cell Distribution Width 17.7 % (11.6-17.2) 18.3 % (11.6-17.2) Platelet Count 99 TH/MM3 (150-450) 81 TH/MM3 (150-450) Mean Platelet Volume 8.3 FL (7.0-11.0) 8.5 FL (7.0-11.0) Reticulocyte Count 4.0 % (0.4-3.0) Absolute Reticulocyte Count 124.6 MIL/L (20.0-150.0) Nasal Screen MRSA (PCR) MRSA NOT DETECTED (NOT Prothrombin Time 13.8 SEC (9.8-11.6) Prothromb Time International Ratio 1.2 RATIO Activated Partial Thromboplast Time 25.2 SEC (24.3-30.1) Fibrinogen 226 mg/dL (227-377) Result Diagram: 06/28/1705 06/27/17 0437 Microbiology Microbiology Date/Time Source Procedure Growth Status 06/28/17 09:05 Blood Peripheral Aerobic Blood Culture Pending Received 06/28/17 09:05 Blood Peripheral Anaerobic Blood Culture Pending Received Procedures 06/01-endotracheal intubation. 06/01-hemodialysis catheter placement in the right IJ vein 06/12-endotracheal intubation 06/12-left IJ central venous catheter placement 06/19-colonoscopy showing ulcers in the cecum, ascending colon, transverse colon and sigmoid diverticulosis. Biopsies taken. 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 She has been twice, in the first and was then during her second marriage. She moved to [place] in 1993 and lives in her own home since that time. She has 1 daughter, Dorothea Gonzalez who lives in [place]. Spiritual: She is a non-practicing [employer] who would accept furniture painter visits. Legal: She is currently able to make decisions for herself, however has designated her daughter Dorothea as her healthcare surrogate. Ethical issues impacting care: None noted at this time . Important Contacts Daughter-Dorothea Gonzalez Prognosis Her prognosis is guarded. She has been intubated twice and has required BiPAP to prevent a third intubation. She has smoked for approximately 60 years is morbidly obese and sedentary. She is now developed end-stage renal disease and is on dialysis. She has uncontrolled diabetes mellitus and anemia. She was found to have multiple ulcers on colonoscopy and is now on Procrit for combination anemia of chronic disease and GI blood loss. Given her debility from extended hospitalization and baseline decline she is at significant risk for falls, poor self-care and recurrent hospitalizations. . Code Status: Alternative Code Plan PLAN: Legal decision maker: She is currently able to make her own decisions but has designated her daughter, Dorothea Gonzalez as the healthcare surrogate decision- maker. Goals: Aggressive short of CPR. CODE STATUS: Alternative code, intubation only. SYMPTOMS: * Dyspnea: She remains on oxygen at this time. She states that she is not going to smoke anymore and this was encouraged. She is currently receiving duo nebs, Solu-Medrol, Symbicort, Ativan, Ancef and vancomycin. She remains at risk for continued respiratory compromise. * Anxiety: She has a chronic baseline anxiety for which she took Xanax at home. Her anxiety will be a barrier to her resolution to quit smoking. No recommendations at this time. Palliative care will continue to follow the patient during hospital course as condition evolves, to assist patient/decision-maker with understanding of their medical conditions, weighing benefits/burdens of treatment options, for clarification of goals of treatment. Additionally will assist with any symptoms of palliative concern. . Attestation To help prompt me to consider important information that might be impacting today's encounter and assessment, information from prior notes written by myself or my colleagues may have been "brought forward" into today's note. My signature on this note, however, is an attestation that I personally performed the exam, history, and/or decision-making noted today, and, unless otherwise indicated, the interactions with patient, family, and staff as well as the review of records all occurred today. I also attest that the listed assessment and stated plan reflect my best clinical judgment today based on the combination of historical information, prior notes, and today's exam/ interactions. When time spent is documented, it refers only to time spent today by the signer, or if indicated, combined time spent today by collaborating physician/nurse practitioner. Sivan Hernandez Jun 28, 2017 11:30
[2017-06-28] MEDS: methylPREDNISolone SOD SUCC 40 MG/1 ML VIAL IV PUSH SCH ×2 (11:46→21:10)
[2017-06-28] MEDS: PANTOPRAZOLE SOD 40 MG DELAYED RELEASE TAB PO SCH (11:47)
[2017-06-28] MEDS: FERROUS SULFATE 325 MG (65 MG ELEMENTAL IRON) TAB PO SCH (11:47)
[2017-06-28] MEDS: DILTIAZEM-CD 240 MG CAP ER PO SCH (11:47)
--- NOTE | 2017-06-28 12:00 | PD.WCN.NOT ---
Wound Consult Description: Received wound management consult of L arm from Doctor Bonny Hurtado Communicated with: SAUL Justice 5th floor [facility] and Doctor Chan Recommendation: Please cleanse wound with L arm with normal saline only and pat dry. Apply Santyl ointment supriya thickness and cover with dry cover dressing or cover with dry 4x4 gauze pads, secured with rolled gauze and tape. Change dressing daily or PRN if saturated or dislodged. Additional Information: Patient seen on 5th floor [facility] for evaluation of wound management of L arm. Removed blood pressure cuff in place to patient's L arm to reveal wound that is open to air. Wound has no active drainage or odor. Slight induration is noted at wound margins circumferentially.Soft tissue Ultrasound of L arm has been completed with results as follows:No evidence for soft tissue abscess as questioned and thrombosed left cephalic vein in the antecubital fossa and proximal forearm. Periwound is noted without erythema or heat. Wound measures 2.9 cm x 2.3 cm x slough. Cleansed wound with normal saline and applied skin prep to periwound before covering wound with bordered gauze. Wound care recommendations are noted above. Rossy Nowak [facility] Jun 28, 2017 12:00
--- NOTE | 2017-06-28 12:27 | HHI.GIFU ---
Subjective Remarks Pt was transferred to [facility] from for GI bleeding. She has had 400cc rectal bleeding- very dark maroon- almost black. Just finished with HD. Going for bleeding scan in a few minutes. Did not take hardly any of the Golytely yesterday. NPO. No hematemesis. Pt denies any abdominal pain or nausea. (Melanie Plata) Objective Vitals I&O Vital Signs Date Time Temp Pulse Resp B/P (MAP) Pulse Ox O2 Delivery O2 Flow Rate FiO2 06/28/17 10:00 106 06/28/17 09:00 94 Nasal Cannula 3.00 06/28/17 08:00 97.8 84 18 134/64 (87) 98 06/28/17 08:00 84 06/28/17 07:00 98 Nasal Cannula 3.00 06/28/17 06:00 94 06/28/17 04:00 92 06/28/17 04:00 98.3 92 19 146/65 (92) 100 06/28/17 04:00 98.3 94 19 146/65 99 06/28/17 02:00 90 06/28/17 01:24 98.2 103 19 143/81 99 06/28/17 00:00 114 06/28/17 00:00 98.2 114 16 114/81 (92) 98 06/27/17 22:00 138 06/27/17 21:27 104 19 128/65 (86) 97 06/27/17 21:12 108 19 143/75 (97) 97 06/27/17 20:12 94 15 165/77 (106) 97 06/27/17 20:00 86 06/27/17 19:52 97 Nasal Cannula 3.00 06/27/17 19:12 94 15 150/60 (90) 97 06/27/17 19:00 Nasal Cannula 3.00 06/27/17 18:30 98.8 92 15 152/62 (92) 97 06/27/17 18:15 98.6 90 15 158/64 (95) 97 06/27/17 18:00 94 06/27/17 18:00 98.2 92 15 144/70 (94) 97 06/27/17 17:45 98.8 84 15 152/66 (94) 97 06/27/17 17:30 98.7 88 15 164/74 (104) 97 06/27/17 16:00 84 06/27/17 16:00 86 15 146/68 (94) 97 06/27/17 13:42 108 06/27/17 13:00 98.5 94 24 158/56 93 06/27/17 12:45 98.4 88 26 158/60 94 06/27/17 12:30 98.8 06/27/17 12:30 98.7 92 22 162/48 93 06/27/17 12:20 98.7 92 24 160/48 93 06/27/17 12:00 100 17 162/67 (98) 96 06/27/17 12:00 96 I/O 06/27/17 06/27/17 06/27/17 06/28/17 06/28/17 06/28/17 07:00 15:00 23:00 07:00 15:00 23:00 Intake Total 40 ml 680 ml 458 ml 382 ml Output Total 150 ml 480 ml 500 ml 2000 ml Balance -110 ml 680 ml -22 ml -118 ml -2000 ml Intake Oral 40 ml 240 ml 60 ml IV Total 100 ml Packed Cells 400 ml FFP 222 ml Platelets 218 ml Blood Product IV Normal Saline Flush 280 ml Stool Total 150 ml 500 ml Drainage Total 480 ml Hemodialysis 2000 ml # Voids 0 3 Laboratory Laboratory Tests Test 06/27/17 18:10 06/27/17 18:30 06/27/17 19:25 06/27/17 22:30 Prothrombin Time 30.5 Prothromb Time International Ratio 2.6 Activated Partial Thromboplast Time 32.2 Fibrinogen 187 Total Bilirubin 1.7 Direct Bilirubin 0.5 Indirect Bilirubin 1.2 Lactate Dehydrogenase 332 White Blood Count 16.1 Red Blood Count 3.09 Hemoglobin 9.0 Hematocrit 27.6 Mean Corpuscular Volume 89.5 Mean Corpuscular Hemoglobin 29.2 Mean Corpuscular Hemoglobin Concent 32.6 Red Cell Distribution Width 17.7 Platelet Count 99 Mean Platelet Volume 8.3 Reticulocyte Count 4.0 Absolute Reticulocyte Count 124.6 Nasal Screen MRSA (PCR) MRSA NOT DETECTED Test 06/28/17 09:05 White Blood Count 14.3 Red Blood Count 2.81 Hemoglobin 8.1 Hematocrit 24.5 Mean Corpuscular Volume 87.3 Mean Corpuscular Hemoglobin 28.7 Mean Corpuscular Hemoglobin Concent 32.9 Red Cell Distribution Width 18.3 Platelet Count 81 Mean Platelet Volume 8.5 Prothrombin Time 13.8 Prothromb Time International Ratio 1.2 Activated Partial Thromboplast Time 25.2 Fibrinogen 226 Date/Time Source Procedure Growth Status 06/28/17 09:05 Blood Peripheral Aerobic Blood Culture Pending Received 06/28/17 09:05 Blood Peripheral Anaerobic Blood Culture Pending Received 06/13/17 18:31 Stool Stool Stool Occult Blood (MELISSA) - Final HEMOCCULT POSITIVE Complete 06/15/17 06:50 Nasal Aspirate Influenza Types A,B Antigen (MELISSA) - Final NEGATIVE FOR FLU A AND B ANTIGEN.... Complete 06/11/17 20:33 Urine Catheterized Urine Urine Culture - Final Lacey Glabrata Lacey Albicans Complete Imaging Last Impressions Upper Extremity Ultrasound 06/28/17 0000 Signed Impressions: Service Date/Time: Wednesday, June 28, 2017 08:00 - CONCLUSION: 1. No evidence for soft tissue abscess as questioned. 2. Thrombosed left cephalic vein in the antecubital fossa and proximal forearm. Berny Marie MD Liver Ultrasound 06/28/17 0000 Signed Impressions: Service Date/Time: Wednesday, June 28, 2017 07:48 - CONCLUSION: Echogenic liver possibly fatty infiltration. Tiny amount of fluid adjacent to the liver. Small bilateral pleural effusions. Status post cholecystectomy. Winston iL MD Central Venous Line 06/22/17 0000 Signed Impressions: Service Date/Time: June 00:00 - CONCLUSION: Uncomplicated catheter removal. Robles Corral MD Catheter Placement X-Ray 06/22/17 0000 Signed Impressions: Service Date/Time: June 14:04 - CONCLUSION: Uncomplicated PermaCath placement as above. Robles Corral MD Chest X-Ray 06/20/17 0000 Signed Impressions: Service Date/Time: Tuesday, June 20, 2017 10:53 - CONCLUSION: Stable chest x-ray with small bibasilar opacities, right greater than left. These likely represent small pleural effusions with associated volume loss and/or consolidation. Christ Heller MD Renal Ultrasound 05/31/17 0000 Signed Impressions: Service Date/Time: Wednesday, May 31, 2017 08:54 - CONCLUSION: 1. Abnormal appearance to the left kidney with diminutive size and poor delineation of the parenchymal architecture. 2. No gross abnormality seen in the right kidney. Aramis Scott MD Physical Exam HEENT: Normocephalic; atraumatic; no jaundice. CHEST: Resp. shallow, even. Expiratory wheezing. CARDIAC: Irregular, 100's-130's ABDOMEN: Soft, mildly bloated, nontender; no hepatosplenomegaly; bowel sounds are present in all four quadrants. Rectal bag with 400cc dark maroon, almost black SKIN: Generalized pallor, EXTREMITIES: Generalized edema. (Melanie Plata) Assessment and Plan Plan ASSESSMENT: - GIB Rectal bleeding. S/P EGD/Colonoscopy (06/19/17)---> 1. Gastritis antrum -biopsy duodenum normal-biopsy 2. Retroflexed views revealed a hiatal hernia 1. Ulcer cecum-visible vessel- 2 clips applied ulcer in ascending colon-biopsy ulcer in transverse colon-biopsy diverticulosis sigmoid,descending 2. Retroflexed views revealed internal hemorrhoids 3. Retroflexed views revealed medium internal hemorrhoids 4. Revealed external hemorrhoids 5. Revealed decreased sphincter tone. She then had melena and underwent EGD with control of bleeding (06/23/17)---> Severe gastropathy with significant areas and they fundus of the stomach oozing blood this was cauterized by heat with reasonable control of the bleeding but there was significant surface area that has potential for rebleeding Patient has gastritis in the antrum also. SHe was transfused with PRBC and FFP and BB was recommended as soon as possible to try to reduce portal htn. She was then transferred to [facility] last night for active GI bleeding. The plan was for a GI bleeding scan and possible egd/colonoscopy today. However, she did not drink her Golytely prep- full gallon is at bedside. She currently has no n/v, abdominal pain. Rectal bag with 400cc dark maroon, almost black stool. HH dropped to 6.3/19.3. She has had 5 units of PRBC, 3 units FFP, and 1 unit Plt and her HH is now 8.1/24.5. Await bleeding scan. May need NGT to get bowel prep pending the results from bleeding scan. Protonix Gtt. Of note, hr is fluctuating 105-130. ? Adding BB if okay with Dr. Chan. - Cecal ulcer, s/p clipping. - Gastropathy. PPI, add BB if okay with Dr. Chan. - Fatty liver, likely cirrhosis. US 06/28/17 with echogenic liver possibly fatty infiltration. Tiny amount of fluid adjacent to the liver. Small bilateral pleural effusions, s/p cholecystectomy - Thrombocytopenia/Coagulopathy. Plt 81. PT 13.8. INR 1.2. Vit. K - DVT Left IJ vein, superficial thrombus left cephalic vein. - Atrial fibrillation, HR 106-130's. - COPD/HCAP. Expiratory wheezing. On n/c. Per CCM - ARF, on HD per nephrology. - HTN, Hyperlipidemia, CKD, DM, ANxiety per attending. PLAN: - NPO - Protonix Gtt - Add Propanolol 10mg po TID if okay with CCM, d/w CCM - Await Bleeding Scan - Notify GI of results of Bleeding scan - Monitor HH - Transfuse as necessary - May need NGT for Bowel prep for repeat EGD/Colonoscopy, based on bleeding scan results - Notify GI of active bleeding - Supportive care - Further recommendations to follow based on results of above - Pt seen and exmained by Dr. Varela and myself and this note is written on his behalf (Melanie Plata) Physician Comments Seen and examined with EMIL, going down for bleeding scan. Monitor H/H. Repeat Egd/colonoscopy planned. (Remedios Varela MD) Melanie Plata Jun 28, 2017 12:27 Remedios Varela MD Jun 28, 2017 14:41
[2017-06-28] MEDS: PANTOPRAZOLE SODIUM 40 MG VIAL IV PUSH SCH ×2 (13:00→21:10)
[2017-06-28 14:06] LABS: HEPARIN AB OD 0.157 O.D. (0.000-0.300); HEPARIN INDUCED PLATELET AB NEGATIVE (NEGATIVE)
--- NOTE | 2017-06-28 15:13 | RADRPT ---
EXAM DATE/TIME: 06/28/2017 12:31 [facility] COMPARISON: No previous studies available for comparison. INDICATIONS : Rectal bleeding DOSE: 21 mCi Tc99m Ultratag labeled red blood cells IV IMAGIN hrs MEDICAL HISTORY : Chronic obstructive pulmonary disease. Hypertension. Diabetes mellitus type 2. SURGICAL HISTORY : Cholecystectomy. Hysterectomy. Rotator cuff, right. Rotator cuff left and carpal tunnel. ENCOUNTER: Initial ACUITY: 1 day PAIN SCALE: 0/10 LOCATION: Abdomen. TECHNIQUE: Following the modified in vitro labeling of autologous red cells, dynamic continuous images were acqu ired for the specified interval. FINDINGS: BIODISTRIBUTION: There is a very good labeling of red cells without significant uptake in the gastric wall. There is good delineation of the blood pool of the spleen and abdominal vessels. BLEEDING: No definite episodes of active GI bleeding are observed during specified interval of continuous obser vation. In the very last images there are 2 small areas of radiotracer accumulation in the right mida bdomen but I don't believe they correspond with a loop of bowel CONCLUSION: No definite evidence of active colonic GI bleeding is noted. 2 very tiny areas are identified the rig ht midabdomen but they do not correspond with bowel activity. Winston Li MD on June 28, 2017 at 15:10 Board Certified Radiologist. This report was verified electronically.
--- NOTE | 2017-06-28 15:16 | RADRPT ---
EXAM DATE/TIME: 06/28/2017 14:56 [place] COMPARISON: No previous studies available for comparison. INDICATIONS : Infiltrate. MEDICAL HISTORY : Chronic obstructive pulmonary disease. Hypertension Diabetes mellitus type II. Stage 4 kidney dis ease. Congestive heart failure SURGICAL HISTORY : Umbilical hernia repair. Cholecystectomy. Appendectomy. hysterectomy. ENCOUNTER: Subsequent ACUITY: 3 weeks PAIN SCORE: 0/10 LOCATION: Bilateral chest FINDINGS: A single view of the chest demonstrates persistent perihilar vascular congestion. There is a right IJ dual-lumen catheter in good position. There is no visible pneumothorax.. The cardiomediastinal cont ours are unremarkable except for cardiomegaly. Osseous structures are intact. CONCLUSION: Right IJ dual-lumen catheter in excellent position. Mild pulmonary vascular congestion with persisten t cardiomegaly is unchanged Winston Li MD on June 28, 2017 at 15:13 Board Certified Radiologist. This report was verified electronically.
[2017-06-28] MEDS: PROPRANOLOL HCL 10 MG TAB PO SCH ×2 (15:21→21:10)
[2017-06-28 17:19] LABS: BASOPHIL % 0.2 % (0.0-2.0); HEMATOCRIT 23.4 % (35.0-46.0); LYMPHOCYTE # 0.1 TH/MM3 (1.0-4.8); MEAN CELL VOLUME 87.7 FL (80.0-100.0); MEAN CORPUSCULAR HEMOGLOBIN 28.8 PG (27.0-34.0); MEAN CORPUSCULAR HGB CONC 32.9 % (32.0-36.0); MONO % 3.5 % (0.0-8.0); NEUT % 95.3 % (16.0-70.0); PLATELET COUNT 73 TH/MM3 (150-450); RED BLOOD COUNT 2.67 MIL/MM3 (4.00-5.30); RED CELL DISTRIBUTION WIDTH 17.5 % (11.6-17.2); WHITE BLOOD COUNT 11.5 TH/MM3 (4.0-11.0)
[2017-06-28 17:23] LABS: HEMO FLAGS AUTO DIFF
[2017-06-28 17:34] LABS: ALT (GPT) 29 U/L (10-53); ANION GAP 11 MEQ/L (5-15); AST (GOT) 43 U/L (15-37); BICARBONATE 29.8 MEQ/L (21.0-32.0); BLOOD UREA NITROGEN 50 MG/DL (7-18); CHLORIDE 99 MEQ/L (98-107); GLOMERULAR FILTRATION RATE 13 ML/MIN (>89); POTASSIUM 4.2 MEQ/L (3.5-5.1); SODIUM (NA) 140 MEQ/L (136-145)
[2017-06-28 17:36] LABS: ALKALINE PHOSPHATASE 95 U/L (45-117); TOTAL BILIRUBIN ADULT 1.9 MG/DL (0.2-1.0)
[2017-06-28 17:58] LABS: PLATELET ESTIMATE SMEAR LOW (NORMAL); PLATELET MORPHOLOGY NORMAL (NORMAL); SCAN/DIFF AUTO DIFF CONFIRMED
--- NOTE | 2017-06-28 18:03 | HHI.PR ---
Subjective Remarks 76 YOWF with VDRF,Ac renal Failure,DM, Met acidosis No Fever Alert awake feels weak, mild sob Breathing better has rectal bleed Tr to IMC Bleeding scan Negative Objective Vital Signs Vital Signs Date Time Temp Pulse Resp B/P (MAP) Pulse Ox O2 Delivery O2 Flow Rate FiO2 06/28/17 16:00 97.4 88 20 96 06/28/17 16:00 88 06/28/17 14:00 95 06/28/17 12:00 98 06/28/17 12:00 97.9 98 18 137/66 (89) 97 06/28/17 10:00 106 06/28/17 09:00 94 Nasal Cannula 3.00 06/28/17 08:00 97.8 84 18 134/64 (87) 98 06/28/17 08:00 84 06/28/17 07:00 98 Nasal Cannula 3.00 06/28/17 06:00 94 06/28/17 04:00 92 06/28/17 04:00 98.3 92 19 146/65 (92) 100 06/28/17 04:00 98.3 94 19 146/65 99 06/28/17 02:00 90 06/28/17 01:24 98.2 103 19 143/81 99 06/28/17 00:00 114 06/28/17 00:00 98.2 114 16 114/81 (92) 98 06/27/17 22:00 138 06/27/17 21:27 104 19 128/65 (86) 97 06/27/17 21:12 108 19 143/75 (97) 97 06/27/17 20:12 94 15 165/77 (106) 97 06/27/17 20:00 86 06/27/17 19:52 97 Nasal Cannula 3.00 06/27/17 19:12 94 15 150/60 (90) 97 06/27/17 19:00 Nasal Cannula 3.00 06/27/17 18:30 98.8 92 15 152/62 (92) 97 06/27/17 18:15 98.6 90 15 158/64 (95) 97 I/O 06/27/17 06/27/17 06/27/17 06/28/17 06/28/17 06/28/17 07:00 15:00 23:00 07:00 15:00 23:00 Intake Total 40 ml 680 ml 458 ml 382 ml 100 ml Output Total 150 ml 480 ml 500 ml 2000 ml Balance -110 ml 680 ml -22 ml -118 ml -1900 ml Intake Oral 40 ml 240 ml 60 ml IV Total 100 ml 100 ml Packed Cells 400 ml FFP 222 ml Platelets 218 ml Blood Product IV Normal Saline Flush 280 ml Stool Total 150 ml 500 ml Drainage Total 480 ml Hemodialysis 2000 ml # Voids 0 3 Result Diagram: 06/28/17162706/28/171627 Objective Remarks GENERAL: WBWN WF, On NC SKIN: Warm and dry. HEAD: Normocephalic. EYES: No scleral icterus. No injection or drainage. NECK: Supple, trachea midline. No JVD or lymphadenopathy. CARDIOVASCULAR: Regular rate and rhythm without murmurs, gallops, or rubs. RESPIRATORY: Breath sounds equal bilaterally. No accessory muscle use. GASTROINTESTINAL: Abdomen soft, non-tender, nondistended. MUSCULOSKELETAL: No cyanosis, or edema. BACK: Nontender without obvious deformity. No CVA tenderness. A/P Assessment and Plan VDRF, s/p Extubation COPD Ac renal Failure DM Nicotine use AF with RVR, converted to NSR PLAN: Supplement 02, keep sat 88-92% Monitor BS Caitlin qid. CPAP prn Monitor H/H GI following. Jac Hammonds MD Jun 28, 2017 18:03
--- NOTE | 2017-06-28 18:52 | HHI.NPPN ---
Subjective History of Present Illness 76-year-old female with past medical history of hypertension, diabetes mellitus, hyperlipidemia, ischemic heart disease, chronic kidney disease, chronic obstructive pulmonary disease was admitted because of generalized weakness, decreased urine output. I he was called to see the patient for elevated BUN and creatinine. The patient is known to me from before. She has been following with me in the office and last time I saw her was on May 04 and at that time her creatinine was 2.2 with given the GFR of 19-20 she had advanced stage IV chronic kidney disease most likely because of diabetic nephropathy. Additional Remarks Patient is alert, with nasal cannula, seen after HD, no abd. pain. Review of Systems General General Remarks Intubated and sedated. Objective Data Data 06/28/17 06/29/17 19:00 07:00 Intake Total 130 ml Output Total 2200 ml Balance -2070 ml Intake Oral 30 ml IV Total 100 ml Output Urine Total 0 ml Stool Total 200 ml Hemodialysis 2000 ml Vital Signs Date Time Temp Pulse Resp B/P (MAP) Pulse Ox O2 Delivery O2 Flow Rate FiO2 06/28/17 18:00 78 06/28/17 16:00 97.4 88 20 96 06/28/17 16:00 88 06/28/17 14:00 95 06/28/17 12:00 98 06/28/17 12:00 97.9 98 18 137/66 (89) 97 06/28/17 10:00 106 06/28/17 09:00 94 Nasal Cannula 3.00 06/28/17 08:00 97.8 84 18 134/64 (87) 98 06/28/17 08:00 84 06/28/17 07:00 98 Nasal Cannula 3.00 06/28/17 06:00 94 06/28/17 04:00 92 06/28/17 04:00 98.3 92 19 146/65 (92) 100 06/28/17 04:00 98.3 94 19 146/65 99 06/28/17 02:00 90 06/28/17 01:24 98.2 103 19 143/81 99 06/28/17 00:00 114 06/28/17 00:00 98.2 114 16 114/81 (92) 98 06/27/17 22:00 138 06/27/17 21:27 104 19 128/65 (86) 97 06/27/17 21:12 108 19 143/75 (97) 97 06/27/17 20:12 94 15 165/77 (106) 97 06/27/17 20:00 86 06/27/17 19:52 97 Nasal Cannula 3.00 06/27/17 19:12 94 15 150/60 (90) 97 06/27/17 19:00 Nasal Cannula 3.00 -: 06/28/17 1628 06/28/17 1628 Microbiology 06/28/17 Aerobic Blood Culture, Received Pending 06/28/17 Anaerobic Blood Culture, Received Pending 06/28/17 Aerobic Blood Culture, Received Pending 06/28/17 Anaerobic Blood Culture, Received Pending Physical Exam General Appearance: No Acute Distress, Comfortable Eyes Eye Exam: Pupils Equal Throat Throat Exam: Oral Mucosa [place] & Moist Neck Neck Exam: Neck Supple Pulmonary Resp Exam: Breath Sounds Equal, Rhonchi, Decreased Bases, Diminished Breath Sounds, Poor Inspiratory Effort Cardiology CV Exam: Regular, Normal Sinus Rhythm Gastrointestinal/Abdomen GI Exam: Soft, Non-Tender, Bowel Sounds Present, Distended Extremeties Extremities Exam: Trace Edema Neurologic Neuro Exam: Alert, Awake, Oriented Psychiatric Psych Exam: Appropriate Responses Assessment/Plan Assessment Summary: [place]/Acute Renal Failure, Hypertension, CKD Stage IV Problem List: (1) Chronic kidney disease (CKD) ICD Codes: N18.9 - Chronic kidney disease, unspecified (2) Oliguria ICD Codes: R34 - Anuria and oliguria (3) Diarrhea ICD Codes: R19.7 - Diarrhea, unspecified (4) Metabolic acidosis ICD Codes: E87.2 - Acidosis Status: Acute (5) Uremia ICD Codes: N19 - Unspecified kidney failure Status: Acute (6) Acute renal failure ICD Codes: N17.9 - Acute kidney failure, unspecified Status: Acute Plan Patient has advance stage 4 chronic kidney disease, approach stage 5. Started on HD. Patient has COPD with high CO2 and developing SOB off and on. Off vent doing better BP is stable. Has tunneled catheter for HD Vascular called, they will do AVF as out patient. HD done this morning, 2.0 liters removed. Hgb. dropped, post transfusion , On. Epogen with HD. Has GI bleeding, GI following. Follow Hgb and transfuse as needed. Problem Qualifiers (1) Chronic kidney disease (CKD): Qualified Codes: N18.5 - Chronic kidney disease, stage 5 (2) Acute renal failure: Qualified Codes: N17.9 - Acute kidney failure, unspecified Lexy Lee MD Jun 28, 2017 18:52
--- NOTE | 2017-06-28 19:53 | PD.ONC.PN ---
Subjective Subjective Remarks Events last 24 hours noted. Pt transferred to [facility]. Discussed w/ Help Desk Manager, noted dialyze this AM, due to fluids and transfusion over night. Discussed w/ GI on going evaluation to locate source of bleed, pt did not have prep from night prior. Objective Data Date Time Temp Pulse Resp B/P (MAP) Pulse Ox O2 Delivery O2 Flow Rate FiO2 06/28/17 18:00 78 06/28/17 16:00 97.4 88 20 96 06/28/17 16:00 88 06/28/17 14:00 95 06/28/17 12:00 98 06/28/17 12:00 97.9 98 18 137/66 (89) 97 06/28/17 10:00 106 06/28/17 09:00 94 Nasal Cannula 3.00 06/28/17 08:00 97.8 84 18 134/64 (87) 98 06/28/17 08:00 84 06/28/17 07:00 98 Nasal Cannula 3.00 06/28/17 06:00 94 06/28/17 04:00 92 06/28/17 04:00 98.3 92 19 146/65 (92) 100 06/28/17 04:00 98.3 94 19 146/65 99 06/28/17 02:00 90 06/28/17 01:24 98.2 103 19 143/81 99 06/28/17 00:00 114 06/28/17 00:00 98.2 114 16 114/81 (92) 98 06/27/17 22:00 138 06/27/17 21:27 104 19 128/65 (86) 97 06/27/17 21:12 108 19 143/75 (97) 97 06/27/17 20:12 94 15 165/77 (106) 97 06/27/17 20:00 86 06/27/17 19:52 97 Nasal Cannula 3.00 06/28/17 06/28/17 06/28/17 07:00 15:00 23:00 Intake Total 382 ml 100 ml 30 ml Output Total 500 ml 2000 ml 200 ml Balance -118 ml -1900 ml -170 ml Result Diagram: 06/28/17 1628 06/28/17 1628 Laboratory Results Laboratory Tests Test 06/27/17 22:30 06/28/17 09:05 06/28/17 16:28 Nasal Screen MRSA (PCR) MRSA NOT DETECTED White Blood Count 14.3 TH/MM3 11.5 TH/MM3 Red Blood Count 2.81 MIL/MM3 2.67 MIL/MM3 Hemoglobin 8.1 GM/DL 7.7 GM/DL Hematocrit 24.5 % 23.4 % Mean Corpuscular Volume 87.3 FL 87.7 FL Mean Corpuscular Hemoglobin 28.7 PG 28.8 PG Mean Corpuscular Hemoglobin Concent 32.9 % 32.9 % Red Cell Distribution Width 18.3 % 17.5 % Platelet Count 81 TH/MM3 73 TH/MM3 Mean Platelet Volume 8.5 FL 8.6 FL Prothrombin Time 13.8 SEC Prothromb Time International Ratio 1.2 RATIO Activated Partial Thromboplast Time 25.2 SEC Fibrinogen 226 mg/dL Neutrophils (%) (Auto) 95.3 % Lymphocytes (%) (Auto) 1.0 % Monocytes (%) (Auto) 3.5 % Eosinophils (%) (Auto) 0.0 % Basophils (%) (Auto) 0.2 % Neutrophils # (Auto) 11.0 TH/MM3 Lymphocytes # (Auto) 0.1 TH/MM3 Monocytes # (Auto) 0.4 TH/MM3 Eosinophils # (Auto) 0.0 TH/MM3 Basophils # (Auto) 0.0 TH/MM3 CBC Comment AUTO DIFF Differential Comment AUTO DIFF CONFIRMED Platelet Estimate LOW Platelet Morphology Comment NORMAL Blood Urea Nitrogen 50 MG/DL Creatinine 3.40 MG/DL Random Glucose 120 MG/DL Total Protein 6.4 GM/DL Albumin 4.0 GM/DL Calcium Level 8.5 MG/DL Alkaline Phosphatase 95 U/L Aspartate Amino Transf (AST/SGOT) 43 U/L Alanine Aminotransferase (ALT/SGPT) 29 U/L Total Bilirubin 1.9 MG/DL Sodium Level 140 MEQ/L Potassium Level 4.2 MEQ/L Chloride Level 99 MEQ/L Carbon Dioxide Level 29.8 MEQ/L Anion Gap 11 MEQ/L Estimat Glomerular Filtration Rate 13 ML/MIN Culture Results Microbiology Date/Time Source Procedure Growth Status 06/28/17 16:28 Blood Peripheral Aerobic Blood Culture Pending Received 06/28/17 16:28 Blood Peripheral Anaerobic Blood Culture Pending Received 06/28/17 09:05 Blood Peripheral Aerobic Blood Culture Pending Received 06/28/17 09:05 Blood Peripheral Anaerobic Blood Culture Pending Received Imaging Studies Last 24 hours Impressions Upper Extremity Ultrasound 06/28/17 0000 Signed Impressions: Service Date/Time: Wednesday, June 28, 2017 08:00 - CONCLUSION: 1. No evidence for soft tissue abscess as questioned. 2. Thrombosed left cephalic vein in the antecubital fossa and proximal forearm. Berny Marie MD Liver Ultrasound 06/28/17 0000 Signed Impressions: Service Date/Time: Wednesday, June 28, 2017 07:48 - CONCLUSION: Echogenic liver possibly fatty infiltration. Tiny amount of fluid adjacent to the liver. Small bilateral pleural effusions. Status post cholecystectomy. Winston Li MD GI Bleed Scan Nuclear Medicine 06/28/17 0000 Signed Impressions: Service Date/Time: Wednesday, June 28, 2017 12:31 - CONCLUSION: No definite evidence of active colonic GI bleeding is noted. 2 very tiny areas are identified the right midabdomen but they do not correspond with bowel activity. Winston Li MD Chest X-Ray 06/28/17 0000 Signed Impressions: Service Date/Time: Wednesday, June 28, 2017 14:56 - CONCLUSION: Right IJ dual-lumen catheter in excellent position. Mild pulmonary vascular congestion with persistent cardiomegaly is unchanged Winston Li MD Administered Medications Medications (Trade) Dose Ordered Sig/[place] Route PRN Reason Start Time Stop Time Status Last Admin Dose Admin Sodium Chloride (NS Flush) 2 ml UNSCH PRN IV FLUSH FLUSH AFTER USING IV ACCESS 05/30/17 21:45 06/23/17 05:39 Sodium Chloride (NS Flush) 2 ml BID IV FLUSH 05/31/17 09:00 06/28/17 08:58 Atorvastatin Calcium (Lipitor) 80 mg HS PO 05/31/17 21:00 Future hold 06/26/17 20:51 Ondansetron HCl (Zofran Inj) 4 mg Q6HR PRN IV PUSH NAUSEA OR VOMITING 05/31/17 13:00 06/05/17 20:18 Sodium Chloride 1,000 ml @ 0 mls/hr Q0M PRN OTHER For Prime & Rinse Back 06/01/17 09:07 06/24/17 09:31 Sodium Chloride 1,000 ml @ 200 mls/hr Q5H PRN IV WITH DIALYSIS 06/01/17 09:07 06/16/17 14:53 Mannitol (Mannitol Inj) 12.5 gm UNSCH PRN IV WITH DIALYSIS 06/01/17 09:15 06/02/17 08:06 Albumin Human 100 ml @ 60 mls/hr UNSCH PRN IV WITH DIALYSIS 06/01/17 09:15 06/28/17 09:22 Sodium Chloride (NS Flush) 5 ml UNSCH PRN IV FLUSH WITH DIALYSIS 06/01/17 09:15 06/24/17 09:31 Heparin Sodium (Porcine) (Heparin Inj) UNSCH PRN .XX WITH DIALYSIS 06/01/17 09:15 06/28/17 08:48 Gentamicin Sulfate (Gentamicin (Dialysis) Inj) 20 mg UNSCH PRN OTHER WITH DIALYSIS 06/01/17 09:15 06/28/17 08:48 Clonidine (Catapres) 0.1 mg UNSCH PRN PO for BP > 180/100 X 2 readings 06/01/17 09:15 06/22/17 02:28 Alprazolam (Xanax) 0.5 mg Q8H PRN PO MILD ANXIETY 06/06/17 13:00 06/28/17 09:44 Epoetin Geoffrey (Epogen Inj) 10,000 units UNSCH PRN IV PUSH WITH DIALYSIS 06/07/17 21:30 06/28/17 08:48 Vitamin B Complex/ Vit C/Folic Acid (Nephrocaps) 1 cap DAILY PO 06/08/17 09:00 06/27/17 08:45 Calcium Acetate (Phoslo) 1,334 mg TID PO 06/08/17 09:00 06/27/17 19:42 Ferrous Sulfate (Ferrous Sulfate) 325 mg DAILY PO 06/09/17 09:00 06/28/17 11:47 Loperamide HCl (Imodium Liq) 2 mg Q4H PRN PO DIARRHEA 06/10/17 13:00 06/21/17 20:35 Sodium Chloride (NS Flush) DAILY IV FLUSH 06/12/17 09:00 06/28/17 08:58 Budesonide/ Formoterol Fumarate (Symbicort 160-4.5 Inh) 2 puff Q12HR INH 06/17/17 09:00 06/27/17 08:44 Insulin Detemir (Levemir Inj) 25 units Q12HR SQ 06/18/17 09:00 Future Hold 06/27/17 08:57 Albuterol Sulfate (Albuterol Neb) 2.5 mg Q2HR NEB PRN NEB dyspnea 06/22/17 06:45 06/27/17 19:52 Hydralazine HCl (Apresoline) 100 mg Q8HR PO 06/22/17 14:00 Future Hold 06/24/17 05:29 Diltiazem HCl (Cardizem Cd) 240 mg DAILY PO 06/22/17 09:00 06/28/17 11:47 Isosorbide Mononitrate (Imdur) 30 mg DAILY@07 PO 06/22/17 07:00 06/28/17 06:17 Metoprolol Tartrate (Lopressor) 12.5 mg Q8HR PO 06/22/17 17:30 06/28/17 15:21 Miscellaneous (Pill Splitter) 1 ea UNSCH PRN OTHER SEE LABEL COMMENTS 06/22/17 18:00 06/23/17 14:16 Chlorhexidine Gluconate (Chlorhexidine 2% Cloth) 3 pack DAILY@04 TOPICAL 06/28/17 04:00 07/02/17 04:01 06/28/17 04:00 Phytonadione (Mephyton Liq) 10 mg DAILY PO 06/28/17 00:30 06/29/17 09:01 06/28/17 11:46 Methylprednisolone Sodium Succinate (SoluMEDROL INJ) 40 mg Q12H IV PUSH 06/28/17 10:00 06/28/17 11:46 Pantoprazole Sodium (Protonix Inj) 40 mg Q12HR IV PUSH 06/28/17 13:00 06/28/17 13:00 Propranolol HCl (Inderal) 10 mg Q8HR PO 06/28/17 14:00 06/28/17 15:21 Objective Remarks GENERAL: Well-nourished, well-developed patient. SKIN: Warm and dry. Pallor. HEAD: Normocephalic. EYES: No scleral icterus. No injection or drainage. NECK: Supple, trachea midline. No JVD or lymphadenopathy. LYMPHATIC: No adenopathy. CARDIOVASCULAR: Regular rate and rhythm without murmurs. RESPIRATORY: Breath sounds equal bilaterally. No accessory muscle use. GASTROINTESTINAL: Abdomen soft, non-tender, nondistended. Rectal bag with melena, blood tinge. EXTREMITIES: No cyanosis, or trace edema. MUSCULOSKELETAL: Adequate muscle tone. NEUROLOGICAL: No obvious focal deficit. Sleeping. Assessment/Plan Problem List: (1) DVT of upper extremity (deep vein thrombosis) ICD Codes: I82.629 - Acute embolism and thrombosis of deep veins of unspecified upper extremity Status: Acute Plan: Anticoagulation on hold due to acute GI bleed, melena/BRBPR, anemia and thrombocytopenia. LUE previous internal jugular vein thrombus, L cephalic vein persist on FU US today. (2) Acute blood loss anemia ICD Codes: D62 - Acute posthemorrhagic anemia Status: Acute Plan: Supportive transfusion. Likely etiology of anemia/thrombocytopenia. Melenotic loose stools continue, bright blood also noted. GI, avaya engineer, nephrology consulted. Work up negative: HIT neg, PAT neg, retic high c/w blood loss anemia. Coagulopathy- pt/ptt prolonged with decrease fibrinogen. Noted improve PTT and increase fibrinogen with FFP. Assessment 76y/o woman, complicated hospital course, acute blood loss anemia w/ thrombocytopenia, work up on going. Plan 1. Continue supportive transfusion. Problem Qualifiers (1) DVT of upper extremity (deep vein thrombosis): Qualified Codes: I82.622 - Acute embolism and thrombosis of deep veins of left upper extremity Socorro Foster MD Jun 28, 2017 19:53
[2017-06-28 20:56] LABS: REVIEW FLAG FINAL
[2017-06-28] MEDS: ATORVASTATIN 40 MG TAB PO SCH (21:09)
[2017-06-29] VITALS (14 sets, daily range): BP systolic 125–166; BP diastolic 60–89; PULSE 62–96; RESP 16–37; TEMP 97.1–98.4; O2SAT 93–97
[2017-06-29 03:59] LABS: AUTOMATED NEUTROPHIL # 9.5 TH/MM3 (1.8-7.7); BASOPHIL % 0.1 % (0.0-2.0); HEMATOCRIT 21.9 % (35.0-46.0); LYMPH % 1.2 % (9.0-44.0); LYMPHOCYTE # 0.1 TH/MM3 (1.0-4.8); MEAN CELL VOLUME 88.2 FL (80.0-100.0); MEAN CORPUSCULAR HEMOGLOBIN 29.4 PG (27.0-34.0); MEAN CORPUSCULAR HGB CONC 33.3 % (32.0-36.0); MONO % 3.1 % (0.0-8.0); NEUT % 95.6 % (16.0-70.0); PLATELET COUNT 70 TH/MM3 (150-450); RED BLOOD COUNT 2.49 MIL/MM3 (4.00-5.30)
[2017-06-29] MEDS: CHLORHEXIDINE GLUCONATE 2 % 1 PACK (2 CLOTHS)(taper/protocol) TOPICAL SCH (04:00)
[2017-06-29 04:09] LABS: HEMO FLAGS AUTO DIFF
[2017-06-29 04:20] LABS: ALKALINE PHOSPHATASE 94 U/L (45-117); ALT (GPT) 26 U/L (10-53); ANION GAP 14 MEQ/L (5-15); AST (GOT) 38 U/L (15-37); BICARBONATE 27.4 MEQ/L (21.0-32.0); BLOOD UREA NITROGEN 69 MG/DL (7-18); CHLORIDE 98 MEQ/L (98-107); GLOMERULAR FILTRATION RATE 11 ML/MIN (>89); POTASSIUM 4.3 MEQ/L (3.5-5.1); SODIUM (NA) 139 MEQ/L (136-145); TOTAL BILIRUBIN ADULT 1.7 MG/DL (0.2-1.0)
[2017-06-29 04:23] LABS: APTT (PATIENT) 25.3 SEC (24.3-30.1); PROTHROMBIN TIME - PATIENT 11.5 SEC (9.8-11.6)
[2017-06-29 04:33] LABS: PLATELET ESTIMATE SMEAR LOW (NORMAL); PLATELET MORPHOLOGY NORMAL (NORMAL); SCAN/DIFF AUTO DIFF CONFIRMED
[2017-06-29] MEDS: PROPRANOLOL HCL 10 MG TAB PO SCH ×3 (05:47→20:08)
[2017-06-29] MEDS: METOPROLOL TARTRATE 25 MG TAB PO SCH (05:47)
[2017-06-29] MEDS: INSULIN NovoLIN REGULAR SUPPLEMENTAL SCALE SQ SCH ×4 (05:47→17:43)
[2017-06-29] MEDS: ISOSORBIDE MONONITRATE 30 MG TAB PO SCH (05:47)
--- NOTE | 2017-06-29 07:44 | HHI.CCPN ---
Subjective Remarks/Hospital Course The patient is a 76-year-old female with past medical history of hypertension, hyperlipidemia, diabetes mellitus, COPD, chronic kidney disease, who was admitted to [facility] yesterday under hospitalist service for acute renal failure and COPD exacerbation. On arrival the patient had BUN of 99 with a creatinine of 14 and potassium level 4.8. Chest x-ray on admission showed no evidence of any acute cardiopulmonary disease. She was seen by Dr. Lee from nephrology service and placed on bicarb drip. A renal ultrasound was obtained which showed no evidence of hydronephrosis. Her renal function continued to worsen. A Halicat was called this morning for respiratory distress. She was subsequently transferred to ICU and was intubated by Dr. Davila, the ED physician. ABG post-intubation showed severe hypercapnic and metabolic acidosis with a pH of 6.89, CO2 63, bicarb 12, pAO2 211, saturation 96 % on PRVC mode rate of 14, tidal volume 500. I time one, PEEP five and FIO2 60% . Chest x-ray post-intubation showed ET tube above the brayan and bilateral interstitial pattern. Her laboratory data this morning is significant for hyperkalemia with potassium level 6.1, BUN of 118, creatinine 14.0. When seen the patient is intubated and sedated with Diprivan drip. Her current blood pressure is 179/90 with a pulse of 117. 06/02 Patient s/p HD 06/01 with 2L fluid removal, 2 L removed today as well. . Patient remains intubated on low dose Diprivan but awake, alert and follows commands. Afebrile. She went into Afib with RVR overnight and started on Amio drip. 06/03 Converted to sinus with PAC's on amiodarone. Remains on mechanical ventilation. UOP 50 ml over last 24 hours. Following commands on sedation, will do SBT. Plan for HD today per discussion with C[employer]ER [employer] INTERN. 06/04 CPAP trial terminated yesterday after patient became tachycardic, anxious. HD was not performed yesterday but plan for today per nephrology. Will use Precedex to facilitate comfort with CPAP. UOP 150. 06/05: Patient had hemodialysis today with 3 L fluid removed. Tolerating CPAP well, awake alert following commands communicating by writing. Chest x-ray remains unchanged 06/06: Overnight placed on Precedex for agitation. Also required BIPAP for hypercapnea. Weaned off Precedex by afternoon today. Currently on Xanax when necessary. At this time on BiPAP. Patient is pleasant and communicative breathing comfortably. Bilateral wheezes on exam. I have started patient on IV Solu-Medrol, Symbicort and Spiriva Reconsult 06/12: Reconsulted secondary to acute hypoxemic respiratory failure. Currently on BiPAP with significant acidosis therefore intubated. Central line placed in the left IJ. 06/13: Afebrile. Currently off phenylephrine drip. Remains intubated. Currently in sinus bradycardia. White blood cell count decreased to 16,000. Will attempt PSV trial today. 06/14: Resting comfortably in bed. Tolerated PSV trial still 8 PM last night. During tube feeds. Positive BM. Following simple commands on minimal sedation. 06/15: Return to normal sinus rhythm. Diltiazem Initiated. Will Attempt PSV Trial Again Today. Positive BMs. We'll Check C. difficile. 06/16: No acute issues overnight. Hemoglobin 7. Will transfuse 1 unit during hemodialysis. Attempt spontaneous breathing trials postdialysis with attempt extubated. 06/17: Extubated yesterday without complication of hemodialysis. -3 L. Positive BM 3. Current 4 L nasal cannula. Less lethargic as AM. 06/18: Afebrile. Tolerating diet yesterday overnight. Currently in sinus bradycardia. Positive BM. On nasal cannula and feels better than yesterday Reconsult 06/20 Reconsult for resp distress. Patient was found with labored breathing she was subsequently place on BIPAP 05/11 with 40% FIO2. Afebrile. Awake and alert , CXR showed bibasilar opacities, stable chest. 06/21 No events overnight. Off BIPAP. Awake and alert on 2L oxygen with good sats. Afebrile. Subjective 06/22: Patient currently afebrile on room air. Continues to have rhonchorous breath sounds with end expiratory wheezing. Continues to have black tarry stools. Hemoglobin stable however. Known cecal ulcer status post clipping by Dr. Moseley with transverse/ascending colon ulcers. Very pleasant. Patient is a DNR DO NOT INTUBATE. Plan for permacath today. 06/28 Patient was transferred to [facility] last night for GI bleeding. She is currently receiving HD. s/p transfusion 2units PRBC and 2U FFP. 06/29 No events overnight. s/p HD yesterday with removal 2L. Bleeding scan yesterday showed no evidence of active bleeding. Hgb 7.3 this morning. Objective Vital Signs Date Time Temp Pulse Resp B/P (MAP) Pulse Ox O2 Delivery O2 Flow Rate FiO2 06/29/17 06:00 77 06/29/17 04:00 97.7 21 125/60 (81) 95 06/28/17 19:46 Nasal Cannula 2.00 Intake and Output 06/29/17 06/29/17 06/30/17 08:00 16:00 00:00 Intake Total 25 ml Output Total 650 ml Balance -625 ml Result Diagram: 06/29/17 0316 06/29/176 Other Results Laboratory Tests Test 06/28/17 09:05 06/28/17 16:28 06/28/17 20:43 06/29/17 03:16 White Blood Count 14.3 TH/MM3 11.5 TH/MM3 10.0 TH/MM3 Red Blood Count 2.81 MIL/MM3 2.67 MIL/MM3 2.49 MIL/MM3 Hemoglobin 8.1 GM/DL 7.7 GM/DL 7.6 GM/DL 7.3 GM/DL Hematocrit 24.5 % 23.4 % 23.0 % 21.9 % Mean Corpuscular Volume 87.3 FL 87.7 FL 88.2 FL Mean Corpuscular Hemoglobin 28.7 PG 28.8 PG 29.4 PG Mean Corpuscular Hemoglobin Concent 32.9 % 32.9 % 33.3 % Red Cell Distribution Width 18.3 % 17.5 % 18.0 % Platelet Count 81 TH/MM3 73 TH/MM3 70 TH/MM3 Mean Platelet Volume 8.5 FL 8.6 FL 9.2 FL Prothrombin Time 13.8 SEC 11.5 SEC Prothromb Time International Ratio 1.2 RATIO 1.0 RATIO Activated Partial Thromboplast Time 25.2 SEC 25.3 SEC Fibrinogen 226 mg/dL 198 mg/dL Neutrophils (%) (Auto) 95.3 % 95.6 % Lymphocytes (%) (Auto) 1.0 % 1.2 % Monocytes (%) (Auto) 3.5 % 3.1 % Eosinophils (%) (Auto) 0.0 % 0.0 % Basophils (%) (Auto) 0.2 % 0.1 % Neutrophils # (Auto) 11.0 TH/MM3 9.5 TH/MM3 Lymphocytes # (Auto) 0.1 TH/MM3 0.1 TH/MM3 Monocytes # (Auto) 0.4 TH/MM3 0.3 TH/MM3 Eosinophils # (Auto) 0.0 TH/MM3 0.0 TH/MM3 Basophils # (Auto) 0.0 TH/MM3 0.0 TH/MM3 CBC Comment AUTO DIFF AUTO DIFF Differential Comment AUTO DIFF CONFIRMED AUTO DIFF CONFIRMED Platelet Estimate LOW LOW Platelet Morphology Comment NORMAL NORMAL Blood Urea Nitrogen 50 MG/DL 69 MG/DL Creatinine 3.40 MG/DL 4.08 MG/DL Random Glucose 120 MG/DL 218 MG/DL Total Protein 6.4 GM/DL 5.9 GM/DL Albumin 4.0 GM/DL 3.7 GM/DL Calcium Level 8.5 MG/DL 8.2 MG/DL Alkaline Phosphatase 95 U/L 94 U/L Aspartate Amino Transf (AST/SGOT) 43 U/L 38 U/L Alanine Aminotransferase (ALT/SGPT) 29 U/L 26 U/L Total Bilirubin 1.9 MG/DL 1.7 MG/DL Sodium Level 140 MEQ/L 139 MEQ/L Potassium Level 4.2 MEQ/L 4.3 MEQ/L Chloride Level 99 MEQ/L 98 MEQ/L Carbon Dioxide Level 29.8 MEQ/L 27.4 MEQ/L Anion Gap 11 MEQ/L 14 MEQ/L Estimat Glomerular Filtration Rate 13 ML/MIN 11 ML/MIN Imaging Last Impressions Upper Extremity Ultrasound 06/28/17 0000 Signed Impressions: Service Date/Time: Wednesday, June 28, 2017 08:00 - CONCLUSION: 1. No evidence for soft tissue abscess as questioned. 2. Thrombosed left cephalic vein in the antecubital fossa and proximal forearm. Berny Marie MD Liver Ultrasound 06/28/17 0000 Signed Impressions: Service Date/Time: Wednesday, June 28, 2017 07:48 - CONCLUSION: Echogenic liver possibly fatty infiltration. Tiny amount of fluid adjacent to the liver. Small bilateral pleural effusions. Status post cholecystectomy. Winston Li MD GI Bleed Scan Nuclear Medicine 06/28/17 0000 Signed Impressions: Service Date/Time: Wednesday, June 28, 2017 12:31 - CONCLUSION: No definite evidence of active colonic GI bleeding is noted. 2 very tiny areas are identified the right midabdomen but they do not correspond with bowel activity. Winston Li MD Chest X-Ray 06/28/17 0000 Signed Impressions: Service Date/Time: Wednesday, June 28, 2017 14:56 - CONCLUSION: Right IJ dual-lumen catheter in excellent position. Mild pulmonary vascular congestion with persistent cardiomegaly is unchanged Winston Li MD Central Venous Line 06/22/17 0000 Signed Impressions: Service Date/Time: June 00:00 - CONCLUSION: Uncomplicated catheter removal. Robles Corral MD Catheter Placement X-Ray 06/22/17 0000 Signed Impressions: Service Date/Time: June 14:04 - CONCLUSION: Uncomplicated PermaCath placement as above. Robles Corral MD Renal Ultrasound 05/31/17 0000 Signed Impressions: Service Date/Time: Wednesday, May 31, 2017 08:54 - CONCLUSION: 1. Abnormal appearance to the left kidney with diminutive size and poor delineation of the parenchymal architecture. 2. No gross abnormality seen in the right kidney. Aramis Scott MD Objective Remarks GENERAL: Patient is 76 yo female, sitting up in [facility] bed, alert and conversant. SKIN: Warm and dry. No rash. Well-perfused. HEAD: Normocephalic. EYES: No scleral icterus. No injection or drainage. NECK: Supple, trachea midline. No JVD or lymphadenopathy. CARDIOVASCULAR: Irregularly irregular, RESPIRATORY: Breathing comfortably on 3 L nasal cannula. No wheezes Rales or rhonchi. GASTROINTESTINAL: Abdomen protuberant, soft, mildly distended. Nontender. Bowel sounds present. MUSCULOSKELETAL: Trace edema of all extremities. There is ~ 2 cm wound on left upper arm with central eschar of ~0.5 cm. There is surrounding swelling. . No surrounding erythema or cellulitis. No fluid or exudate expressed. NEURO: Awake and oriented 4. Moves all extremities spontaneously with no focal deficit. No facial droop. Date of Insertion: Jun 12, 2017 Line: Central Venous Catheter Side: Left Location: Internal, Jugular A/P Problem List: (1) DM2 (diabetes mellitus, type 2) ICD Code: E11.9 - Type 2 diabetes mellitus without complications Status: Chronic (2) Paroxysmal atrial fibrillation ICD Code: I48.0 - Paroxysmal atrial fibrillation Status: Acute (3) Acute blood loss anemia ICD Code: D62 - Acute posthemorrhagic anemia Status: Acute (4) Thrombocytopenia ICD Code: D69.6 - Thrombocytopenia, unspecified Assessment and Plan Neuro/Psych: Anxiety disorder NOS Awake and alert Alprazolam 0.5 mg by mouth every 8hours as needed for anxiety/home medication for anxiety Acetaminophen 650 mg liquid every 6 hours when necessary for fever Acetaminophen/hydrocodone 5/325 one tablet every 6 hours as needed Pain 1-5. two tab prn pain 6-10 Pulm: Acute hypercapnic respiratory failure - resolved Acute COPD exacerbation - resolved Tobacco abuse Extubated 06/05/17. Reintubated 06/12. Extubated 06/16. Continue with oxygen keep sats> 90%. Incentive spirometry while awake Albuterol/ipratropium aerosols every 4 hours with albuterol aerosols every 2 hours On budesonide/formoterol 160 g/4.5 g 2 puffs inhaled twice a day On Solumederol 40 mg IV q12. Pulm following, Dr. Hammonds CV: Hypertension Hyperlipidemia Paroxysmal atrial fibrillation in RVR. Monitor HR and BP keep MAP>65mmHg Inderal 10mg Q8, Imdur 30mg daily, Add Cardizem 60mgQ6 Echo showed 50-55% normal LV. Possible lipomatous hypertrophy of the inter- atrial septum Continue atorvastatin 80 mg by mouth daily Renal/FEN/: CKD Stage IV, on HD and probable ESRD with correction dialysis. Diabetic nephropathy R Permacath placed 06/22. Vascular surgery planning for AVF as outpatient. IHD M/W/F per Nephrology, Dr. Lee. s/p HD with 2L removal. on 06/28. Renal ultrasound 05/31 revealed medical renal disease left kidney/atrophy. Right kidney within normal limits On calcium acetate 1334 mg 3 times a day GI: Cecal ulcer with visible vessel status post clipping 2 06/19 Dr. Moseley Transverse/ascending colon ulcer Sigmoid diverticulosis Internal and external hemorrhoids On pantoprazole 40 mg po twice a day NPO. Bleeding scan 06/28: No active bleeding noted. GI is following. Might need repeat EGD/colonoscopy C diff negative. 2 06/19 s/p EGD, colonoscopy: gastritis, ulcer in cecum with visible vessel - clipped, , ascending and transverse colon ulcer, sigmoid diverticulosis, internal and external hemorrhoids. 06/23 EGD - Severe gastropathy, cauterized by Dr. Guerrero. ?cirrhosis. US Liver: Echogenic liver possibly fatty infiltration. Tiny amount of fluid adjacent to the liver. Small bilateral pleural effusions. Status post cholecystectomy Viral Hepatitis panel negative 06/01 ID: Acute community acquired pneumonia (resolved) Asymptomatic candiduria Off abx, monitor for signs of infections. Follow up on BC. Wound care consult. Check UA US UE: No evidence for soft tissue abscess as questioned. Thrombosed left cephalic vein in the antecubital fossa and proximal forearm. 06/01 Sputum Kleb pneumonia, E.coli 06/11 Urine cx: C. Glabrata and Albicans Endo: Diabetes mellitus Detemir 25 units subcut q12 hours held as patient is NPO Continue with SSI- medium scale with Accu-Cheks Q6h Heme: DVT L IJ Vein. Superficial thrombus left cephalic vein at the level of the antecubital fossa and proximal arm Anemia consistent with anemia of chronic kidney disease Thrombocytopenia Coagulopathy On iron sulfate 325 mg daily. Monitor CBC. Received 2 units PRBC, 1 unit platelets and 2u FFP 06/27. Monitor CBC, coags and fibrinogen-INR 1.0 and Fibrinogen level 198. Will transfuse 1unit PRBC today for Hgb 7.3 ( trending down) HIT ab negative. Hematology following, Dr. Foster. Continue Epogen lorena 10,000 units with hemodialysis Not candidate for anticoagulation at this point for IJ thrombus due to active bleeding GI prophylaxis with pantoprazole 40 mill grams po twice a day and DVT prophylaxis with SCDs and no pharmacological prophylaxis in light of melena stools and cecal ulcer Lines: R IJ permacath 06/22 #7. Has a peripheral IV. Per Dr. Hurtado- Patient states that she is agreeable to intubation if needed for procedure or for recurrent respiratory failure. She states she would be okay with trach if needed. In the setting of cardiac arrest, she does not want CPR, shocks, ACLS drugs or intubation. PT consult Palliative care following. level 3 Felix Schultz MD Jun 29, 2017 07:44
[2017-06-29] MEDS: PANTOPRAZOLE SODIUM 40 MG VIAL IV PUSH SCH ×2 (07:53→20:08)
[2017-06-29] MEDS: FERROUS SULFATE 325 MG (65 MG ELEMENTAL IRON) TAB PO SCH (07:54)
[2017-06-29] MEDS: VITAMIN B CMPLX/VITC/FOLIC AC CAP PO SCH (07:54)
[2017-06-29] MEDS: BUDESONIDE-FORMOTEROL 160/4.5 MCG INHALER INH SCH ×2 (07:54→20:09)
[2017-06-29] MEDS: PHYTONADIONE 5 MG/SWFI 5 ML ORAL SYR PO SCH (07:54)
[2017-06-29] MEDS: SODIUM CHLORIDE 0.9% FLUSH 10 ML FLUSH IV FLUSH SCH ×3 (07:54→20:09)
[2017-06-29] MEDS: CALCIUM ACETATE 667 MG CAP PO SCH ×3 (07:54→17:43)
[2017-06-29] MEDS: DILTIAZEM HCL 60 MG TAB PO SCH ×3 (07:59→20:10)
[2017-06-29] MEDS: methylPREDNISolone SOD SUCC 40 MG/1 ML VIAL IV PUSH SCH ×2 (07:59→20:08)
--- NOTE | 2017-06-29 09:34 | HHI.GIFU ---
Subjective Remarks Resting in bed. Getting transfused. Pt denies any abdominal pain. No longer having maroon stool- now liquid brown color. D/W patient need for bowel prep to repeat egd/colonoscopy to evaluate cecal ulcer and evaluate for bleeding from portal gastropathy. (Melanie Plata) Objective Vitals I&O Vital Signs Date Time Temp Pulse Resp B/P (MAP) Pulse Ox O2 Delivery O2 Flow Rate FiO2 06/29/17 08:00 97.1 75 16 136/89 (105) 97 06/29/17 08:00 62 06/29/17 07:37 95 Nasal Cannula 2.00 06/29/17 06:00 77 06/29/17 04:00 97.7 86 21 125/60 (81) 95 06/29/17 04:00 86 06/29/17 02:00 86 06/29/17 00:00 96 06/29/17 00:00 97.9 96 37 144/64 (90) 95 06/28/17 22:00 82 06/28/17 20:00 88 06/28/17 20:00 97.7 88 20 146/65 (92) 95 06/28/17 19:46 99 Nasal Cannula 2.00 06/28/17 19:00 97 Nasal Cannula 3.00 06/28/17 18:00 78 06/28/17 16:00 97.4 88 20 96 06/28/17 16:00 88 06/28/17 14:00 95 06/28/17 12:00 98 06/28/17 12:00 97.9 98 18 137/66 (89) 97 06/28/17 10:00 106 I/O 06/28/17 06/28/17 06/28/17 06/29/17 06/29/17 06/29/17 07:00 15:00 23:00 07:00 15:00 23:00 Intake Total 382 ml 100 ml 30 ml 25 ml 25 ml Output Total 500 ml 2000 ml 200 ml 650 ml Balance -118 ml -1900 ml -170 ml -625 ml 25 ml Intake Oral 60 ml 30 ml 25 ml IV Total 100 ml 100 ml FFP 222 ml Blood Product IV Normal Saline Flush 25 ml Output Urine Total 0 ml 0 ml Stool Total 500 ml 200 ml 650 ml Hemodialysis 2000 ml Laboratory Laboratory Tests Test 06/28/17 16:28 06/28/17 20:43 06/29/17 03:16 White Blood Count 11.5 10.0 Red Blood Count 2.67 2.49 Hemoglobin 7.7 7.6 7.3 Hematocrit 23.4 23.0 21.9 Mean Corpuscular Volume 87.7 88.2 Mean Corpuscular Hemoglobin 28.8 29.4 Mean Corpuscular Hemoglobin Concent 32.9 33.3 Red Cell Distribution Width 17.5 18.0 Platelet Count 73 70 Mean Platelet Volume 8.6 9.2 Neutrophils (%) (Auto) 95.3 95.6 Lymphocytes (%) (Auto) 1.0 1.2 Monocytes (%) (Auto) 3.5 3.1 Eosinophils (%) (Auto) 0.0 0.0 Basophils (%) (Auto) 0.2 0.1 Neutrophils # (Auto) 11.0 9.5 Lymphocytes # (Auto) 0.1 0.1 Monocytes # (Auto) 0.4 0.3 Eosinophils # (Auto) 0.0 0.0 Basophils # (Auto) 0.0 0.0 CBC Comment AUTO DIFF AUTO DIFF Differential Comment AUTO DIFF CONFIRMED AUTO DIFF CONFIRMED Platelet Estimate LOW LOW Platelet Morphology Comment NORMAL NORMAL Blood Urea Nitrogen 50 69 Creatinine 3.40 4.08 Random Glucose 120 218 Total Protein 6.4 5.9 Albumin 4.0 3.7 Calcium Level 8.5 8.2 Alkaline Phosphatase 95 94 Aspartate Amino Transf (AST/SGOT) 43 38 Alanine Aminotransferase (ALT/SGPT) 29 26 Total Bilirubin 1.9 1.7 Sodium Level 140 139 Potassium Level 4.2 4.3 Chloride Level 99 98 Carbon Dioxide Level 29.8 27.4 Anion Gap 11 14 Estimat Glomerular Filtration Rate 13 11 Prothrombin Time 11.5 Prothromb Time International Ratio 1.0 Activated Partial Thromboplast Time 25.3 Fibrinogen 198 Date/Time Source Procedure Growth Status 06/28/17 16:28 Blood Peripheral Aerobic Blood Culture Pending Received 06/28/17 16:28 Blood Peripheral Anaerobic Blood Culture Pending Received 06/13/17 18:31 Stool Stool Stool Occult Blood (MELISSA) - Final HEMOCCULT POSITIVE Complete 06/15/17 06:50 Nasal Aspirate Influenza Types A,B Antigen (MELISSA) - Final NEGATIVE FOR FLU A AND B ANTIGEN.... Complete 06/11/17 20:33 Urine Catheterized Urine Urine Culture - Final Lacey Glabrata Lacey Albicans Complete Imaging Last Impressions Upper Extremity Ultrasound 06/28/17 0000 Signed Impressions: Service Date/Time: Wednesday, June 28, 2017 08:00 - CONCLUSION: 1. No evidence for soft tissue abscess as questioned. 2. Thrombosed left cephalic vein in the antecubital fossa and proximal forearm. Berny Marie MD Liver Ultrasound 06/28/17 0000 Signed Impressions: Service Date/Time: Wednesday, June 28, 2017 07:48 - CONCLUSION: Echogenic liver possibly fatty infiltration. Tiny amount of fluid adjacent to the liver. Small bilateral pleural effusions. Status post cholecystectomy. Winston Li MD GI Bleed Scan Nuclear Medicine 06/28/17 0000 Signed Impressions: Service Date/Time: Wednesday, June 28, 2017 12:31 - CONCLUSION: No definite evidence of active colonic GI bleeding is noted. 2 very tiny areas are identified the right midabdomen but they do not correspond with bowel activity. Winston Li MD Chest X-Ray 06/28/17 0000 Signed Impressions: Service Date/Time: Wednesday, June 28, 2017 14:56 - CONCLUSION: Right IJ dual-lumen catheter in excellent position. Mild pulmonary vascular congestion with persistent cardiomegaly is unchanged Winston Li MD Central Venous Line 06/22/17 0000 Signed Impressions: Service Date/Time: June 00:00 - CONCLUSION: Uncomplicated catheter removal. Robles Corral MD Catheter Placement X-Ray 06/22/17 0000 Signed Impressions: Service Date/Time: June 14:04 - CONCLUSION: Uncomplicated PermaCath placement as above. Robles Corral MD Renal Ultrasound 05/31/17 0000 Signed Impressions: Service Date/Time: Wednesday, May 31, 2017 08:54 - CONCLUSION: 1. Abnormal appearance to the left kidney with diminutive size and poor delineation of the parenchymal architecture. 2. No gross abnormality seen in the right kidney. Aramis Scott MD Physical Exam HEENT: Normocephalic; atraumatic; no jaundice. CHEST: Resp. shallow, even. Expiratory wheezing. CARDIAC: Irregular, 90's ABDOMEN: Soft, mildly bloated, nontender; no hepatosplenomegaly; bowel sounds are present in all four quadrants. Rectal bag with small amount liquid brown stool in tubing. SKIN: Generalized pallor, EXTREMITIES: Generalized edema. (Melanie Plata) Assessment and Plan Plan ASSESSMENT: - GIB Rectal bleeding. S/P EGD/Colonoscopy (06/19/17)---> 1. Gastritis antrum -biopsy duodenum normal-biopsy 2. Retroflexed views revealed a hiatal hernia 1. Ulcer cecum-visible vessel- 2 clips applied ulcer in ascending colon-biopsy ulcer in transverse colon-biopsy diverticulosis sigmoid,descending 2. Retroflexed views revealed internal hemorrhoids 3. Retroflexed views revealed medium internal hemorrhoids 4. Revealed external hemorrhoids 5. Revealed decreased sphincter tone. She then had melena and underwent EGD with control of bleeding (06/23/17)---> Severe gastropathy with significant areas and they fundus of the stomach oozing blood this was cauterized by heat with reasonable control of the bleeding but there was significant surface area that has potential for rebleeding Patient has gastritis in the antrum also. She was transfused with PRBC and FFP and BB was recommended as soon as possible to try to reduce portal htn. She was then transferred to [facility] for active GI bleeding. The plan was for a GI bleeding scan and possible egd/colonoscopy yesterday, but she did not take prep. S/P Bleeding scan ()---> No definite evidence of active colonic GI bleeding is noted. 2 very tiny areas are identified the right midabdomen but they do not correspond with bowel activity. Rectal bag with small amount liquid brown stool. HH 7.3/21.9. Getting transfused. On BB. - Cecal ulcer, s/p clipping. - Gastropathy. PPI, BB - Fatty liver, likely cirrhosis. US 06/28/17 with echogenic liver possibly fatty infiltration. Tiny amount of fluid adjacent to the liver. Small bilateral pleural effusions, s/p cholecystectomy. T. Bili 1.7, 38, 26 , 94. - Thrombocytopenia/Coagulopathy. Plt 70. PT 11.5. INR 1.0. Vit. K - DVT Left IJ vein, superficial thrombus left cephalic vein. - Atrial fibrillation, HR 106-130's. - COPD/HCAP. Per CCM - ARF, HD per nephrology. - HTN, Hyperlipidemia, CKD, DM, Anxiety per attending. PLAN: - Plan for EGD/Colonoscopy in am - Obtain consents - Golytely prep- start now. If unable to take, then insert NGT and give via NGT - Clear liquids - NPO after MN - Protonix Gtt - Propanolol - Monitor HH - Transfuse as necessary - Supportive care - Notify GI of active bleeding - Further recommendations to follow based on results of above - Pt seen and exmained by Dr. Varela and myself and this note is written on his behalf (Melanie Plata) Physician Comments Seen and examined with [employer], No active bleeding. Bleeding scan -ve. Egd/ colonoscopy planned for tomorrow. (Remedios Varela MD) Melanie Plata Jun 29, 2017 09:34 Remedios Varela MD Jun 29, 2017 11:14
[2017-06-29] MEDS ORDERED: PEG (High)/E-LYTE SOLN 4000 ML BTL PO ONE (09:45)
--- NOTE | 2017-06-29 13:18 | HHI.PR ---
Subjective Remarks 76 YOWF with VDRF,Ac renal Failure,DM, Met acidosis No Fever Alert awake feels weak, mild sob Breathing better has rectal bleed Recived 1 unit PRBC Objective Vital Signs Vital Signs Date Time Temp Pulse Resp B/P (MAP) Pulse Ox O2 Delivery O2 Flow Rate FiO2 06/29/17 10:00 67 06/29/17 08:00 97.1 75 16 136/89 (105) 97 06/29/17 08:00 62 06/29/17 07:37 95 Nasal Cannula 2.00 06/29/17 07:00 98 Nasal Cannula 3.00 06/29/17 06:00 77 06/29/17 04:00 97.7 86 21 125/60 (81) 95 06/29/17 04:00 86 06/29/17 02:00 86 06/29/17 00:00 96 06/29/17 00:00 97.9 96 37 144/64 (90) 95 06/28/17 22:00 82 06/28/17 20:00 88 06/28/17 20:00 97.7 88 20 146/65 (92) 95 06/28/17 19:46 99 Nasal Cannula 2.00 06/28/17 19:00 97 Nasal Cannula 3.00 06/28/17 18:00 78 06/28/17 16:00 97.4 88 20 96 06/28/17 16:00 88 06/28/17 14:00 95 I/O 06/28/17 06/28/17 06/28/17 06/29/17 06/29/17 06/29/17 07:00 15:00 23:00 07:00 15:00 23:00 Intake Total 382 ml 100 ml 30 ml 25 ml 425 ml Output Total 500 ml 2000 ml 200 ml 650 ml Balance -118 ml -1900 ml -170 ml -625 ml 425 ml Intake Oral 60 ml 30 ml 25 ml IV Total 100 ml 100 ml Packed Cells 400 ml FFP 222 ml Blood Product IV Normal Saline Flush 25 ml Output Urine Total 0 ml 0 ml Stool Total 500 ml 200 ml 650 ml Hemodialysis 2000 ml Result Diagram: 06/29/1731506/29/17315 Objective Remarks GENERAL: WBWN WF, On NC SKIN: Warm and dry. HEAD: Normocephalic. EYES: No scleral icterus. No injection or drainage. NECK: Supple, trachea midline. No JVD or lymphadenopathy. CARDIOVASCULAR: Regular rate and rhythm without murmurs, gallops, or rubs. RESPIRATORY: Breath sounds equal bilaterally. No accessory muscle use. GASTROINTESTINAL: Abdomen soft, non-tender, nondistended. MUSCULOSKELETAL: No cyanosis, or edema. BACK: Nontender without obvious deformity. No CVA tenderness. A/P Assessment and Plan VDRF, s/p Extubation COPD Ac renal Failure DM Nicotine use AF with RVR, converted to NSR PLAN: Supplement 02, keep sat 88-92% Monitor BS Caitlin qid. CPAP prn Monitor H/H For colonoscopy in AM Jac Hammonds MD Jun 29, 2017 13:18
--- NOTE | 2017-06-29 13:26 | HHI.NPPN ---
Subjective History of Present Illness 76-year-old female with past medical history of hypertension, diabetes mellitus, hyperlipidemia, ischemic heart disease, chronic kidney disease, chronic obstructive pulmonary disease was admitted because of generalized weakness, decreased urine output. I he was called to see the patient for elevated BUN and creatinine. The patient is known to me from before. She has been following with me in the office and last time I saw her was on May 04 and at that time her creatinine was 2.2 with given the GFR of 19-20 she had advanced stage IV chronic kidney disease most likely because of diabetic nephropathy. Additional Remarks Patient is alert, with nasal cannula, no abd. pain, drinking Golytle for Colonoscopy. Review of Systems General General Remarks Intubated and sedated. Objective Data Data 06/29/17 06/30/17 19:00 07:00 Intake Total 425 ml Balance 425 ml Packed Cells 400 ml Blood Product IV Normal Saline Flush 25 ml Vital Signs Date Time Temp Pulse Resp B/P (MAP) Pulse Ox O2 Delivery O2 Flow Rate FiO2 06/29/17 10:00 67 06/29/17 08:00 97.1 75 16 136/89 (105) 97 06/29/17 08:00 62 06/29/17 07:37 95 Nasal Cannula 2.00 06/29/17 07:00 98 Nasal Cannula 3.00 06/29/17 06:00 77 06/29/17 04:00 97.7 86 21 125/60 (81) 95 06/29/17 04:00 86 06/29/17 02:00 86 06/29/17 00:00 96 06/29/17 00:00 97.9 96 37 144/64 (90) 95 06/28/17 22:00 82 06/28/17 20:00 88 06/28/17 20:00 97.7 88 20 146/65 (92) 95 06/28/17 19:46 99 Nasal Cannula 2.00 06/28/17 19:00 97 Nasal Cannula 3.00 06/28/17 18:00 78 06/28/17 16:00 97.4 88 20 96 06/28/17 16:00 88 06/28/17 14:00 95 -: 06/29/17 0316 06/29/17 0316 Microbiology 06/28/17 Aerobic Blood Culture - Preliminary, Resulted NO GROWTH IN 1 DAY 06/28/17 Anaerobic Blood Culture - Preliminary, Resulted NO GROWTH IN 1 DAY Physical Exam General Appearance: No Acute Distress, Comfortable Eyes Eye Exam: Pupils Equal Throat Throat Exam: Oral Mucosa [place] & Moist Neck Neck Exam: Neck Supple Pulmonary Resp Exam: Breath Sounds Equal, Rhonchi, Decreased Bases, Diminished Breath Sounds, Poor Inspiratory Effort Cardiology CV Exam: Regular, Normal Sinus Rhythm Gastrointestinal/Abdomen GI Exam: Soft, Non-Tender, Bowel Sounds Present, Distended Extremeties Extremities Exam: Trace Edema Neurologic Neuro Exam: Alert, Awake, Oriented Psychiatric Psych Exam: Appropriate Responses Assessment/Plan Assessment Summary: MIRACLE/Acute Renal Failure, Hypertension, CKD Stage IV Problem List: (1) Chronic kidney disease (CKD) ICD Codes: N18.9 - Chronic kidney disease, unspecified (2) Oliguria ICD Codes: R34 - Anuria and oliguria (3) Diarrhea ICD Codes: R19.7 - Diarrhea, unspecified (4) Metabolic acidosis ICD Codes: E87.2 - Acidosis Status: Acute (5) Uremia ICD Codes: N19 - Unspecified kidney failure Status: Acute (6) Acute renal failure ICD Codes: N17.9 - Acute kidney failure, unspecified Status: Acute Plan Patient has advance stage 4 chronic kidney disease, approach stage 5. Started on HD. Patient has COPD with high CO2 and developing SOB off and on. Off vent doing better BP is stable. Has tunneled catheter for HD Vascular called, they will do AVF as out patient. HD done this morning, 2.0 liters removed. Hgb. is slowly dropping after transfusion., On. Epogen with HD. Has GI bleeding, GI following. Follow Hgb and transfuse as needed. For colonoscopy in AM. Problem Qualifiers (1) Chronic kidney disease (CKD): Qualified Codes: N18.5 - Chronic kidney disease, stage 5 (2) Acute renal failure: Qualified Codes: N17.9 - Acute kidney failure, unspecified Lexy Lee MD Jun 29, 2017 13:26
[2017-06-29 14:55] LABS: HEMATOCRIT 26.7 % (35.0-46.0)
[2017-06-29 14:58] LABS: REVIEW FLAG FINAL
[2017-06-29] MEDS: ONDANSETRON HCL 4 MG/2 ML VIAL IV PUSH PRN (19:53)
[2017-06-29] MEDS: ATORVASTATIN 40 MG TAB PO SCH (20:09)
[2017-06-29] MEDS: ALPRAZolam 0.25 MG TAB PO PRN (23:05)
[2017-06-30] VITALS (14 sets, daily range): BP systolic 129–165; BP diastolic 66–103; PULSE 69–92; RESP 17–24; TEMP 97.4–98.6; O2SAT 88–98
[2017-06-30] MEDS: DILTIAZEM HCL 60 MG TAB PO SCH ×4 (03:50→21:04)
[2017-06-30] MEDS: CHLORHEXIDINE GLUCONATE 2 % 1 PACK (2 CLOTHS)(taper/protocol) TOPICAL SCH (04:00)
[2017-06-30] MEDS: INSULIN NovoLIN REGULAR SUPPLEMENTAL SCALE SQ SCH ×4 (06:00→16:15)
[2017-06-30] MEDS: PROPRANOLOL HCL 10 MG TAB PO SCH ×3 (06:23→21:04)
[2017-06-30] MEDS: ISOSORBIDE MONONITRATE 30 MG TAB PO SCH (06:24)
[2017-06-30 07:59] LABS: AUTOMATED NEUTROPHIL # 9.4 TH/MM3 (1.8-7.7); EOSINOPHIL % 0.1 % (0.0-4.0); HEMATOCRIT 27.2 % (35.0-46.0); LYMPH % 1.2 % (9.0-44.0); LYMPHOCYTE # 0.1 TH/MM3 (1.0-4.8); MEAN CELL VOLUME 88.2 FL (80.0-100.0); MEAN CORPUSCULAR HEMOGLOBIN 29.3 PG (27.0-34.0); MEAN CORPUSCULAR HGB CONC 33.2 % (32.0-36.0); MONO % 4.3 % (0.0-8.0); NEUT % 94.4 % (16.0-70.0); PLATELET COUNT 71 TH/MM3 (150-450); RED BLOOD COUNT 3.08 MIL/MM3 (4.00-5.30); RED CELL DISTRIBUTION WIDTH 16.8 % (11.6-17.2); WHITE BLOOD COUNT 9.9 TH/MM3 (4.0-11.0)
[2017-06-30 08:02] LABS: HEMO FLAGS AUTO DIFF
[2017-06-30] MEDS: VITAMIN B CMPLX/VITC/FOLIC AC CAP PO SCH (08:03)
[2017-06-30] MEDS: FERROUS SULFATE 325 MG (65 MG ELEMENTAL IRON) TAB PO SCH (08:03)
[2017-06-30] MEDS: CALCIUM ACETATE 667 MG CAP PO SCH ×3 (08:03→16:15)
[2017-06-30] MEDS: PANTOPRAZOLE SODIUM 40 MG VIAL IV PUSH SCH ×2 (08:04→21:07)
[2017-06-30] MEDS: BUDESONIDE-FORMOTEROL 160/4.5 MCG INHALER INH SCH ×2 (08:04→21:05)
[2017-06-30] MEDS: SODIUM CHLORIDE 0.9% FLUSH 10 ML FLUSH IV FLUSH SCH ×3 (08:04→21:04)
[2017-06-30] MEDS: methylPREDNISolone SOD SUCC 40 MG/1 ML VIAL IV PUSH SCH ×2 (08:06→21:05)
[2017-06-30 08:33] LABS: ALKALINE PHOSPHATASE 139 U/L (45-117); ALT (GPT) 32 U/L (10-53); ANION GAP 14 MEQ/L (5-15); AST (GOT) 41 U/L (15-37); BICARBONATE 28.7 MEQ/L (21.0-32.0); BLOOD UREA NITROGEN 94 MG/DL (7-18); CHLORIDE 95 MEQ/L (98-107); GLOMERULAR FILTRATION RATE 8 ML/MIN (>89); POTASSIUM 4.3 MEQ/L (3.5-5.1); SODIUM (NA) 138 MEQ/L (136-145); TOTAL BILIRUBIN ADULT 1.6 MG/DL (0.2-1.0)
[2017-06-30 08:37] LABS: PLATELET ESTIMATE SMEAR LOW (NORMAL); PLATELET MORPHOLOGY NORMAL (NORMAL); SCAN/DIFF AUTO DIFF CONFIRMED
--- NOTE | 2017-06-30 09:43 | HHI.CCPN ---
Subjective Remarks/Hospital Course The patient is a 76-year-old female with past medical history of hypertension, hyperlipidemia, diabetes mellitus, COPD, chronic kidney disease, who was admitted to [facility] yesterday under hospitalist service for acute renal failure and COPD exacerbation. On arrival the patient had BUN of 99 with a creatinine of 14 and potassium level 4.8. Chest x-ray on admission showed no evidence of any acute cardiopulmonary disease. She was seen by Dr. Lee from nephrology service and placed on bicarb drip. A renal ultrasound was obtained which showed no evidence of hydronephrosis. Her renal function continued to worsen. A Halicat was called this morning for respiratory distress. She was subsequently transferred to ICU and was intubated by Dr. Davila, the ED physician. ABG post-intubation showed severe hypercapnic and metabolic acidosis with a pH of 6.89, CO2 63, bicarb 12, pAO2 211, saturation 96 % on PRVC mode rate of 14, tidal volume 500. I time one, PEEP five and FIO2 60% . Chest x-ray post-intubation showed ET tube above the brayan and bilateral interstitial pattern. Her laboratory data this morning is significant for hyperkalemia with potassium level 6.1, BUN of 118, creatinine 14.0. When seen the patient is intubated and sedated with Diprivan drip. Her current blood pressure is 179/90 with a pulse of 117. 06/02 Patient s/p HD 06/01 with 2L fluid removal, 2 L removed today as well. . Patient remains intubated on low dose Diprivan but awake, alert and follows commands. Afebrile. She went into Afib with RVR overnight and started on Amio drip. 06/03 Converted to sinus with PAC's on amiodarone. Remains on mechanical ventilation. UOP 50 ml over last 24 hours. Following commands on sedation, will do SBT. Plan for HD today per discussion with [employer]. 06/04 CPAP trial terminated yesterday after patient became tachycardic, anxious. HD was not performed yesterday but plan for today per nephrology. Will use Precedex to facilitate comfort with CPAP. UOP 150. 06/05: Patient had hemodialysis today with 3 L fluid removed. Tolerating CPAP well, awake alert following commands communicating by writing. Chest x-ray remains unchanged 06/06: Overnight placed on Precedex for agitation. Also required BIPAP for hypercapnea. Weaned off Precedex by afternoon today. Currently on Xanax when necessary. At this time on BiPAP. Patient is pleasant and communicative breathing comfortably. Bilateral wheezes on exam. I have started patient on IV Solu-Medrol, Symbicort and Spiriva Reconsult 06/12: Reconsulted secondary to acute hypoxemic respiratory failure. Currently on BiPAP with significant acidosis therefore intubated. Central line placed in the left IJ. 06/13: Afebrile. Currently off phenylephrine drip. Remains intubated. Currently in sinus bradycardia. White blood cell count decreased to 16,000. Will attempt PSV trial today. 06/14: Resting comfortably in bed. Tolerated PSV trial still 8 PM last night. During tube feeds. Positive BM. Following simple commands on minimal sedation. 06/15: Return to normal sinus rhythm. Diltiazem Initiated. Will Attempt PSV Trial Again Today. Positive BMs. We'll Check C. difficile. 06/16: No acute issues overnight. Hemoglobin 7. Will transfuse 1 unit during hemodialysis. Attempt spontaneous breathing trials postdialysis with attempt extubated. 06/17: Extubated yesterday without complication of hemodialysis. -3 L. Positive BM 3. Current 4 L nasal cannula. Less lethargic as AM. 06/18: Afebrile. Tolerating diet yesterday overnight. Currently in sinus bradycardia. Positive BM. On nasal cannula and feels better than yesterday Reconsult 06/20 Reconsult for resp distress. Patient was found with labored breathing she was subsequently place on BIPAP 05/11 with 40% FIO2. Afebrile. Awake and alert , CXR showed bibasilar opacities, stable chest. 06/21 No events overnight. Off BIPAP. Awake and alert on 2L oxygen with good sats. Afebrile. Subjective 06/22: Patient currently afebrile on room air. Continues to have rhonchorous breath sounds with end expiratory wheezing. Continues to have black tarry stools. Hemoglobin stable however. Known cecal ulcer status post clipping by Dr. Moseley with transverse/ascending colon ulcers. Very pleasant. Patient is a DNR DO NOT INTUBATE. Plan for permacath today. 06/28 Patient was transferred to [facility] last night for GI bleeding. She is currently receiving HD. s/p transfusion 2units PRBC and 2U FFP. 06/29 No events overnight. s/p HD yesterday with removal 2L. Bleeding scan yesterday showed no evidence of active bleeding. Hgb 7.3 this morning. 06/30 No events overnight. For EGD/colonoscopy today. Afebrile. s/p transfusion 1unit PRBC yesterday Objective Vital Signs Date Time Temp Pulse Resp B/P (MAP) Pulse Ox O2 Delivery O2 Flow Rate FiO2 06/30/17 09:30 97.6 74 20 129/79 (96) 95 06/30/17 07:00 Nasal Cannula 4.00 40 Intake and Output 06/30/17 06/30/17 07/01/17 08:00 16:00 00:00 Intake Total 3700 ml Balance 3700 ml Result Diagram: 06/30/17 0641 06/30/17 0641 Other Results Laboratory Tests Test 06/29/17 14:30 06/30/17 06:41 Hemoglobin 9.1 GM/DL 9.0 GM/DL Hematocrit 26.7 % 27.2 % White Blood Count 9.9 TH/MM3 Red Blood Count 3.08 MIL/MM3 Mean Corpuscular Volume 88.2 FL Mean Corpuscular Hemoglobin 29.3 PG Mean Corpuscular Hemoglobin Concent 33.2 % Red Cell Distribution Width 16.8 % Platelet Count 71 TH/MM3 Mean Platelet Volume 9.5 FL Neutrophils (%) (Auto) 94.4 % Lymphocytes (%) (Auto) 1.2 % Monocytes (%) (Auto) 4.3 % Eosinophils (%) (Auto) 0.1 % Basophils (%) (Auto) 0.0 % Neutrophils # (Auto) 9.4 TH/MM3 Lymphocytes # (Auto) 0.1 TH/MM3 Monocytes # (Auto) 0.4 TH/MM3 Eosinophils # (Auto) 0.0 TH/MM3 Basophils # (Auto) 0.0 TH/MM3 CBC Comment AUTO DIFF Differential Comment AUTO DIFF CONFIRMED Platelet Estimate LOW Platelet Morphology Comment NORMAL Basophilic Stippling FAINT Blood Urea Nitrogen 94 MG/DL Creatinine 5.31 MG/DL Random Glucose 217 MG/DL Total Protein 6.2 GM/DL Albumin 3.6 GM/DL Calcium Level 7.9 MG/DL Alkaline Phosphatase 139 U/L Aspartate Amino Transf (AST/SGOT) 41 U/L Alanine Aminotransferase (ALT/SGPT) 32 U/L Total Bilirubin 1.6 MG/DL Sodium Level 138 MEQ/L Potassium Level 4.3 MEQ/L Chloride Level 95 MEQ/L Carbon Dioxide Level 28.7 MEQ/L Anion Gap 14 MEQ/L Estimat Glomerular Filtration Rate 8 ML/MIN Imaging Last Impressions Upper Extremity Ultrasound 06/28/17 0000 Signed Impressions: Service Date/Time: Wednesday, June 28, 2017 08:00 - CONCLUSION: 1. No evidence for soft tissue abscess as questioned. 2. Thrombosed left cephalic vein in the antecubital fossa and proximal forearm. Berny Marie MD Liver Ultrasound 06/28/17 0000 Signed Impressions: Service Date/Time: Wednesday, June 28, 2017 07:48 - CONCLUSION: Echogenic liver possibly fatty infiltration. Tiny amount of fluid adjacent to the liver. Small bilateral pleural effusions. Status post cholecystectomy. Winston Li MD GI Bleed Scan Nuclear Medicine 06/28/17 0000 Signed Impressions: Service Date/Time: Wednesday, June 28, 2017 12:31 - CONCLUSION: No definite evidence of active colonic GI bleeding is noted. 2 very tiny areas are identified the right midabdomen but they do not correspond with bowel activity. Winston Li MD Chest X-Ray 06/28/17 0000 Signed Impressions: Service Date/Time: Wednesday, June 28, 2017 14:56 - CONCLUSION: Right IJ dual-lumen catheter in excellent position. Mild pulmonary vascular congestion with persistent cardiomegaly is unchanged Winston Li MD Central Venous Line 06/22/17 0000 Signed Impressions: Service Date/Time: June 00:00 - CONCLUSION: Uncomplicated catheter removal. Robles Corral MD Catheter Placement X-Ray 06/22/17 0000 Signed Impressions: Service Date/Time: June 14:04 - CONCLUSION: Uncomplicated PermaCath placement as above. Robles Corral MD Renal Ultrasound 05/31/17 0000 Signed Impressions: Service Date/Time: Wednesday, May 31, 2017 08:54 - CONCLUSION: 1. Abnormal appearance to the left kidney with diminutive size and poor delineation of the parenchymal architecture. 2. No gross abnormality seen in the right kidney. Aramis Scott MD Objective Remarks GENERAL: Patient is 76 yo female lying in bed in NAD SKIN: Warm and dry. No rash. Well-perfused. HEAD: Normocephalic. EYES: No scleral icterus. No injection or drainage. NECK: Supple, trachea midline. No JVD or lymphadenopathy. CARDIOVASCULAR: Irregularly irregular, RESPIRATORY: Breathing comfortably on 3 L nasal cannula. No wheezes Rales or rhonchi. GASTROINTESTINAL: Abdomen protuberant, soft, mildly distended. Nontender. Bowel sounds present. MUSCULOSKELETAL: Trace edema of all extremities. There is ~ 2 cm wound on left upper arm with central eschar of ~0.5 cm. There is surrounding swelling. . No surrounding erythema or cellulitis. No fluid or exudate expressed. NEURO: Awake and oriented 4. Moves all extremities spontaneously with no focal deficit. No facial droop. Date of Insertion: Jun 12, 2017 Line: Central Venous Catheter Side: Left Location: Internal, Jugular A/P Problem List: (1) DM2 (diabetes mellitus, type 2) ICD Code: E11.9 - Type 2 diabetes mellitus without complications Status: Chronic (2) Paroxysmal atrial fibrillation ICD Code: I48.0 - Paroxysmal atrial fibrillation Status: Acute (3) Acute blood loss anemia ICD Code: D62 - Acute posthemorrhagic anemia Status: Acute (4) Thrombocytopenia ICD Code: D69.6 - Thrombocytopenia, unspecified Assessment and Plan Neuro/Psych: Anxiety disorder NOS Awake and alert Alprazolam 0.5 mg by mouth every 8hours as needed for anxiety/home medication for anxiety Acetaminophen 650 mg liquid every 6 hours when necessary for fever Acetaminophen/hydrocodone 5/325 one tablet every 6 hours as needed Pain 1-5. two tab prn pain 6-10 Pulm: Acute hypercapnic respiratory failure - resolved Acute COPD exacerbation - resolved Tobacco abuse Extubated 06/05/17. Reintubated 06/12. Extubated 06/16. Continue with oxygen keep sats> 90%. Incentive spirometry while awake Albuterol/ipratropium aerosols every 4 hours with albuterol aerosols every 2 hours On budesonide/formoterol 160 g/4.5 g 2 puffs inhaled twice a day On Solumederol 40 mg IV q12. Pulm following, Dr. Aneja CV: Hypertension Hyperlipidemia Paroxysmal atrial fibrillation in RVR. Monitor HR and BP keep MAP>65mmHg Inderal 10mg Q8, Imdur 30mg daily, Cardizem 60mgQ6 Echo showed 50-55% normal LV. 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 Diabetic nephropathy R Permacath placed 06/22. Vascular surgery planning for AVF as outpatient. IHD M/W/F per Nephrology, Dr. Lee. s/p HD with 2L removal. on 06/28. Renal ultrasound 05/31 revealed medical renal disease left kidney/atrophy. Right kidney within normal limits On calcium acetate 1334 mg 3 times a day GI: Cecal ulcer with visible vessel status post clipping 2 06/19 Dr. Moseley Transverse/ascending colon ulcer Sigmoid diverticulosis Internal and external hemorrhoids On pantoprazole 40 mg po twice a day NPO. Bleeding scan 06/28: No active bleeding noted. GI is following. For repeat EGD/colonoscopy today C diff negative. 2 06/19 s/p EGD, colonoscopy: gastritis, ulcer in cecum with visible vessel - clipped, , ascending and transverse colon ulcer, sigmoid diverticulosis, internal and external hemorrhoids. 06/23 EGD - Severe gastropathy, cauterized by Dr. Guerrero. ?cirrhosis. US Liver: Echogenic liver possibly fatty infiltration. Tiny amount of fluid adjacent to the liver. Small bilateral pleural effusions. Status post cholecystectomy Viral Hepatitis panel negative 06/01 ID: Acute community acquired pneumonia (resolved) Asymptomatic candiduria Off abx, monitor for signs of infections. Follow up on BC. Wound care consult. Check UA US UE: No evidence for soft tissue abscess as questioned. Thrombosed left cephalic vein in the antecubital fossa and proximal forearm. 06/01 Sputum Kleb pneumonia, E.coli 06/11 Urine cx: C. Glabrata and Albicans Endo: Diabetes mellitus Detemir 25 units subcut q12 hours held as patient is NPO Continue with SSI- medium scale with Accu-Cheks Q6h Heme: DVT L IJ Vein. Superficial thrombus left cephalic vein at the level of the antecubital fossa and proximal arm Anemia consistent with anemia of chronic kidney disease Thrombocytopenia Coagulopathy On iron sulfate 325 mg daily. Monitor CBC. Received 2 units PRBC, 1 unit platelets and 2u FFP 06/27. Monitor CBC, coags and fibrinogen-INR 1.0 and Fibrinogen level 198. s/p transfuse 1unit PRBC 06/29 HIT ab negative. Hematology following, Dr. Foster. Continue Epogen lorena 10,000 units with hemodialysis Not candidate for anticoagulation at this point for IJ thrombus due to active bleeding GI prophylaxis with pantoprazole 40 mill grams po twice a day and DVT prophylaxis with SCDs and no pharmacological prophylaxis in light of cecal ulcer /GI bleed Lines: R IJ permacath 06/22 #7. Has a peripheral IV. Per Dr. Hurtado- Patient states that she is agreeable to intubation if needed for procedure or for recurrent respiratory failure. She states she would be okay with trach if needed. In the setting of cardiac arrest, she does not want CPR, shocks, ACLS drugs or intubation. Palliative care following. level 2 Felix Schultz MD Jun 30, 2017 09:43
[2017-06-30] MEDS ORDERED: EPINEPHrine HCL (1:10,000) 1 MG/10 ML SYRINGE OTHER ONE (09:58)
--- NOTE | 2017-06-30 10:03 | GIPROC ---
[facility] [address] [facility]. [facility], [address] EGD PROCEDURE REPORT EXAM DATE: 06/30/2017 PATIENT NAME: Silvia Wilkinson MR #: [id number] BIRTHDATE: 1940 ATTENDING: Remedios Varela MD ORDER #: [id number] WHARF HELPER: Syed Brown and Danni Longo STATUS: inpatient INDICATIONS: The patient is a 76 yr old female here for an EGD due to acute post hemorrhagic anemia PROCEDURE PERFORMED: EGD w/ biopsy MEDICATIONS: None and Per Anesthesia. TOPICAL ANESTHETIC: CONSENT: The patient understands the risks and benefits of the procedure and understands that these risks include, but are not limited to: sedation, allergic reaction, infection, perforation and/or bleeding. Alternative means of evaluation and treatment include, among others: physical exam, x-rays, and/or surgical intervention. The patient elects to proceed with this endoscopic procedure. medical equipment was checked for proper function. Hand hygiene and appropriate measures for infection prevention was taken. After the risks, benefits and alternatives of the procedure were thoroughly explained, Informed consent was verified, confirmed and timeout was successfully executed by the treatment team. The patient was anesthetized with topical anesthesia and the [id number] (Pedi C) endoscope was introduced through the mouth and advanced to the second portion of the duodenum. Retroflexed views revealed no abnormalities The gastroscope was then slowly withdrawn and removed. ESOPHAGUS: There was LA Class B esophagitis noted. STOMACH: There was erythematous severe and erosive gastritis in the gastric antrum. A biopsy was performed using cold forceps. Sample obtained for microbiology. Sample sent for histology. DUODENUM: The duodenal mucosa appeared normal. ADVERSE EVENTS: There were no complications. IMPRESSIONS: 1. There was LA Class B esophagitis noted 2. There was erythematous gastritis in the gastric antrum; biopsy was performed 3. Normal duodenal mucosa 4. Retroflexed views revealed no abnormalities RECOMMENDATIONS: 1. Await biopsy results. Biopsy results will not be ready for 7-10 days. If you don't hear from us in two weeks, call our office for biopsy results. 2. Anti-reflux regimen 3. Continue PPI PATIENT CONDITION: stable DISPOSITION: Inpatient REPEAT EXAM: Return 1 year EGD pending biopsy results Remedios aVrela MD eSigned: Remedios Varela MD 06/30/2017 10:03 AM cc: PATIENT NAME: Silvia Wilkinson MR#: [id number]
--- NOTE | 2017-06-30 10:08 | GIPROC ---
[facility] [address] [facility]. [facility], [id number] COLONOSCOPY PROCEDURE REPORT EXAM DATE: 06/30/2017 PATIENT NAME: Silvia Wilkinson MR #: [id number] BIRTHDATE: 1940 ENDOSCOPIST: Remedios Varela MD ORDER #: [id number] NAPPER FIXER: Syed Brown and Danni Longo STATUS: inpatient INDICATIONS: The patient is a 76 yr old female here for a colonoscopy due to hematochezia and iron deficiency anemia PROCEDURE PERFORMED: Colonoscopy with ablation Colonoscopy with GI bleeding control MEDICATIONS: None and Per Anesthesia. PREP QUALITY: The [place] Bowel Prep Score was Right colon 2, Mid colon 2, and Left colon 2. Total = 6. PREP TYPE:GoLytely PREP TYPE:Type: ESTIMATED BLOOD LOSS: None CONSENT: The patient understands the risks and benefits of the procedure and understands that these risks include, but are not limited to: sedation, allergic reaction, infection, perforation and/or bleeding. Alternative means of evaluation and treatment include, among others: physical exam, x-rays, and/or surgical intervention. The patient elects to proceed with this endoscopic procedure. medical equipment was checked for proper function. Hand hygiene and appropriate measures for infection prevention was taken. After the risks, benefits and alternatives of the procedure were thoroughly explained, Informed consent was verified, confirmed and timeout was successfully executed by the treatment team. A digital exam revealed external hemorrhoids The Pentax [id number] endoscope was introduced through the anus and advanced to the cecum, which was identified by both the appendix and ileocecal valve. The instrument was then slowly withdrawn as the colon was fully examined. COLON FINDINGS: Severe diverticulosis was noted in the sigmoid colon. No bleeding was noted from the diverticulosis. A 3 x 5cm patch of colitis was found in the transverse colon. The mucosa was erythematous, friable, ulcerated and oozing blood. Not clear what this area is? Possible area of previous endoscopic therapy. Injected with 5 cc of epinephrine, and ablated with APC. Good hemostasis obtained. Retroflexed views revealed internal hemorrhoids and Retroflexed views revealed medium internal hemorrhoids The scope was then completely withdrawn from the patient and the procedure terminated. PROCEDURE WITHDRAWAL TIME:10minutes ADVERSE EVENTS: There were no complications. IMPRESSIONS: 1. Severe diverticulosis was noted in the sigmoid colon 2. 3 x 5cm colitis was found in the transverse colon; The mucosa was erythematous, friable, ulcerated and oozing blood; Not clear what this area is? Possible area of previous endoscopic therapy. Injected with 5 cc of epinephrine, and ablated with APC. Good hemostasis obtained 3. Retroflexed views revealed internal hemorrhoids 4. Retroflexed views revealed medium internal hemorrhoids 5. Revealed external hemorrhoids RECOMMENDATIONS: 1. Continue surveillance 2. Yearly hemoccult 3. Monitor H/H, angiogram with embolization if further bleed. RECALL: Return 3 months Colonoscopy Remedios Varela MD eSigned: Remedios Varela MD 06/30/2017 10:08 AM cc: PATIENT NAME: Silvia Wilkinson MR#: [id number]
[2017-06-30] MEDS ORDERED: DO NOT ADM ANY ANTICOAGULANT DRUGS PRN (10:30)
[2017-06-30] MEDS ORDERED: LIDOCAINE HCL 1% PF 5 ML SYRINGE OTHER ONE (12:00)
[2017-06-30] MEDS ORDERED: PROPOFOL 200 MG/20 ML AMP IV ONE (12:00)
--- NOTE | 2017-06-30 12:17 | HHI.NPPN ---
Subjective History of Present Illness 76-year-old female with past medical history of hypertension, diabetes mellitus, hyperlipidemia, ischemic heart disease, chronic kidney disease, chronic obstructive pulmonary disease was admitted because of generalized weakness, decreased urine output. I he was called to see the patient for elevated BUN and creatinine. The patient is known to me from before. She has been following with me in the office and last time I saw her was on May 04 and at that time her creatinine was 2.2 with given the GFR of 19-20 she had advanced stage IV chronic kidney disease most likely because of diabetic nephropathy. Additional Remarks Patient is alert, with nasal cannula, no abd. pain, seen after the GI procedure. Review of Systems General General Remarks Intubated and sedated. Objective Data Data 06/30/17 07/01/17 19:00 07:00 Intake Total 150 ml Balance 150 ml Other 150 ml Vital Signs Date Time Temp Pulse Resp B/P (MAP) Pulse Ox O2 Delivery O2 Flow Rate FiO2 06/30/17 10:33 97.4 63 20 159/74 (102) 95 Nasal Cannula 2 06/30/17 10:15 63 20 159/74 (102) 95 Nasal Cannula 2 06/30/17 10:07 97.4 72 20 132/76 (94) 95 Nasal Cannula 2 06/30/17 09:30 97.6 74 20 129/79 (96) 95 06/30/17 08:30 97.6 74 20 129/79 (96) 95 06/30/17 07:00 Nasal Cannula 4.00 40 06/30/17 06:00 70 06/30/17 04:00 98.6 89 21 133/103 (113) 88 06/30/17 04:00 89 06/30/17 02:00 71 06/30/17 00:00 75 06/30/17 00:00 98.4 75 21 153/66 (95) 93 06/29/17 22:00 76 06/29/17 20:00 79 06/29/17 20:00 98.4 79 19 166/69 (101) 94 06/29/17 19:15 96 Nasal Cannula 3.00 06/29/17 19:00 Nasal Cannula 3.00 40 06/29/17 18:00 78 06/29/17 16:00 79 06/29/17 16:00 97.5 79 18 141/69 (93) 94 06/29/17 14:00 78 -: 06/30/17 0641 06/30/17 0641 Physical Exam General Appearance: No Acute Distress, Comfortable Eyes Eye Exam: Pupils Equal Throat Throat Exam: Oral Mucosa Metcalfe & Moist Neck Neck Exam: Neck Supple Pulmonary Resp Exam: Breath Sounds Equal, Rhonchi, Decreased Bases, Diminished Breath Sounds, Poor Inspiratory Effort Cardiology CV Exam: Regular, Normal Sinus Rhythm Gastrointestinal/Abdomen GI Exam: Soft, Non-Tender, Bowel Sounds Present, Distended Extremeties Extremities Exam: Trace Edema Neurologic Neuro Exam: Alert, Awake, Oriented Psychiatric Psych Exam: Appropriate Responses Assessment/Plan Assessment Summary: [place]/Acute Renal Failure, Hypertension, CKD Stage IV Problem List: (1) Chronic kidney disease (CKD) ICD Codes: N18.9 - Chronic kidney disease, unspecified (2) Oliguria ICD Codes: R34 - Anuria and oliguria (3) Diarrhea ICD Codes: R19.7 - Diarrhea, unspecified (4) Metabolic acidosis ICD Codes: E87.2 - Acidosis Status: Acute (5) Uremia ICD Codes: N19 - Unspecified kidney failure Status: Acute (6) Acute renal failure ICD Codes: N17.9 - Acute kidney failure, unspecified Status: Acute Plan Patient has advance stage 4 chronic kidney disease, approach stage 5. Started on HD. Patient has COPD with high CO2 and developing SOB off and on. Off vent doing better BP is stable. Has tunneled catheter for HD Vascular called, they will do AVF as out patient. Hgb. is stable after transfusion., On. Epogen with HD. Has GI bleeding, GI following. Follow Hgb and transfuse as needed. The results of the EGD and colonoscopy noted. HD will be in AM, follow the Hgb. Problem Qualifiers (1) Chronic kidney disease (CKD): Qualified Codes: N18.5 - Chronic kidney disease, stage 5 (2) Acute renal failure: Qualified Codes: N17.9 - Acute kidney failure, unspecified Lexy Lee MD Jun 30, 2017 12:17
--- NOTE | 2017-06-30 14:35 | HHI.PR ---
Subjective Remarks 76 YOWF with VDRF,Ac renal Failure,DM, Met acidosis No Fever Alert awake feels weak, mild sob Breathing better Recived 1 unit PRBC had Colonoscopy and bleeding vessel cauterised. Objective Vital Signs Vital Signs Date Time Temp Pulse Resp B/P (MAP) Pulse Ox O2 Delivery O2 Flow Rate FiO2 06/30/17 10:33 97.4 63 20 159/74 (102) 95 Nasal Cannula 2 06/30/17 10:15 63 20 159/74 (102) 95 Nasal Cannula 2 06/30/17 10:07 97.4 72 20 132/76 (94) 95 Nasal Cannula 2 06/30/17 09:30 97.6 74 20 129/79 (96) 95 06/30/17 08:30 97.6 74 20 129/79 (96) 95 06/30/17 07:33 96 Nasal Cannula 2.00 06/30/17 07:00 Nasal Cannula 4.00 40 06/30/17 06:00 70 06/30/17 04:00 98.6 89 21 133/103 (113) 88 06/30/17 04:00 89 06/30/17 02:00 71 06/30/17 00:00 75 06/30/17 00:00 98.4 75 21 153/66 (95) 93 06/29/17 22:00 76 06/29/17 20:00 79 06/29/17 20:00 98.4 79 19 166/69 (101) 94 06/29/17 19:15 96 Nasal Cannula 3.00 06/29/17 19:00 Nasal Cannula 3.00 40 06/29/17 18:00 78 06/29/17 16:00 79 06/29/17 16:00 97.5 79 18 141/69 (93) 94 I/O 06/29/17 06/29/17 06/29/17 06/30/17 06/30/17 06/30/17 07:00 15:00 23:00 07:00 15:00 23:00 Intake Total 25 ml 425 ml 130 ml 3700 ml 150 ml Output Total 650 ml 150 ml Balance -625 ml 425 ml -20 ml 3700 ml 150 ml Intake Oral 25 ml 130 ml 3700 ml Packed Cells 400 ml Blood Product IV Normal Saline Flush 25 ml Other 150 ml Output Urine Total 0 ml 0 ml Stool Total 650 ml 150 ml # Voids 0 # Bowel Movements 7 Result Diagram: 06/30/1764006/30/17640 Objective Remarks GENERAL: WBWN WF, On NC SKIN: Warm and dry. HEAD: Normocephalic. EYES: No scleral icterus. No injection or drainage. NECK: Supple, trachea midline. No JVD or lymphadenopathy. CARDIOVASCULAR: Regular rate and rhythm without murmurs, gallops, or rubs. RESPIRATORY: Breath sounds equal bilaterally. No accessory muscle use. GASTROINTESTINAL: Abdomen soft, non-tender, nondistended. MUSCULOSKELETAL: No cyanosis, or edema. BACK: Nontender without obvious deformity. No CVA tenderness. A/P Assessment and Plan VDRF, s/p Extubation COPD Ac renal Failure DM Nicotine use AF with RVR, converted to NSR PLAN: Supplement 02, keep sat 88-92% Monitor BS Caitlin qid. CPAP prn Monitor H/H Jac Hammonds MD Jun 30, 2017 14:35
[2017-06-30] MEDS: ATORVASTATIN 40 MG TAB PO SCH (21:04)
[2017-06-30] MEDS: ALPRAZolam 0.25 MG TAB PO PRN (21:04)
[2017-07-01] VITALS (10 sets, daily range): BP systolic 117–147; BP diastolic 57–85; PULSE 55–91; RESP 14–22; TEMP 95.2–97.7; O2SAT 90–98
[2017-07-01] MEDS: ACETAMINOPHEN/HYDROcodone 325 MG/5 MG TAB PO PRN (00:07)
[2017-07-01] MEDS: DILTIAZEM HCL 60 MG TAB PO SCH ×4 (02:00→21:15)
[2017-07-01] MEDS: CHLORHEXIDINE GLUCONATE 2 % 1 PACK (2 CLOTHS)(taper/protocol) TOPICAL SCH (04:00)
[2017-07-01] MEDS: PROPRANOLOL HCL 10 MG TAB PO SCH ×3 (05:50→21:03)
[2017-07-01] MEDS: INSULIN NovoLIN REGULAR SUPPLEMENTAL SCALE SQ SCH ×4 (05:51→17:34)
[2017-07-01] MEDS: ISOSORBIDE MONONITRATE 30 MG TAB PO SCH (05:51)
[2017-07-01 06:47] LABS: AUTOMATED NEUTROPHIL # 7.5 TH/MM3 (1.8-7.7); BASOPHIL % 0.1 % (0.0-2.0); EOSINOPHIL % 0.1 % (0.0-4.0); LYMPH % 1.3 % (9.0-44.0); LYMPHOCYTE # 0.1 TH/MM3 (1.0-4.8); MEAN CORPUSCULAR HEMOGLOBIN 29.8 PG (27.0-34.0); MEAN CORPUSCULAR HGB CONC 33.4 % (32.0-36.0); MONO % 3.2 % (0.0-8.0); NEUT % 95.3 % (16.0-70.0); PLATELET COUNT 65 TH/MM3 (150-450); RED BLOOD COUNT 2.92 MIL/MM3 (4.00-5.30); RED CELL DISTRIBUTION WIDTH 17.1 % (11.6-17.2); WHITE BLOOD COUNT 7.8 TH/MM3 (4.0-11.0)
[2017-07-01 07:29] LABS: HEMO FLAGS AUTO DIFF
[2017-07-01 07:39] LABS: BICARBONATE 25.3 MEQ/L (21.0-32.0); POTASSIUM 4.9 MEQ/L (3.5-5.1)
[2017-07-01] MEDS: methylPREDNISolone SOD SUCC 40 MG/1 ML VIAL IV PUSH SCH ×2 (08:12→21:03)
[2017-07-01] MEDS: FERROUS SULFATE 325 MG (65 MG ELEMENTAL IRON) TAB PO SCH (08:12)
[2017-07-01] MEDS: VITAMIN B CMPLX/VITC/FOLIC AC CAP PO SCH (08:12)
[2017-07-01] MEDS: CALCIUM ACETATE 667 MG CAP PO SCH ×3 (08:12→17:26)
[2017-07-01] MEDS: PANTOPRAZOLE SODIUM 40 MG VIAL IV PUSH SCH ×2 (08:12→21:02)
[2017-07-01] MEDS: SODIUM CHLORIDE 0.9% FLUSH 10 ML FLUSH IV FLUSH SCH ×3 (08:13→21:15)
[2017-07-01] MEDS: BUDESONIDE-FORMOTEROL 160/4.5 MCG INHALER INH SCH ×2 (08:14→21:00)
--- NOTE | 2017-07-01 08:25 | HHI.CCPN ---
Subjective Remarks/Hospital Course The patient is a 76-year-old female with past medical history of hypertension, hyperlipidemia, diabetes mellitus, COPD, chronic kidney disease, who was admitted to [facility] yesterday under hospitalist service for acute renal failure and COPD exacerbation. On arrival the patient had BUN of 99 with a creatinine of 14 and potassium level 4.8. Chest x-ray on admission showed no evidence of any acute cardiopulmonary disease. She was seen by Dr. Lee from nephrology service and placed on bicarb drip. A renal ultrasound was obtained which showed no evidence of hydronephrosis. Her renal function continued to worsen. A Halicat was called this morning for respiratory distress. She was subsequently transferred to ICU and was intubated by Dr. Davila, the ED physician. ABG post-intubation showed severe hypercapnic and metabolic acidosis with a pH of 6.89, CO2 63, bicarb 12, pAO2 211, saturation 96 % on PRVC mode rate of 14, tidal volume 500. I time one, PEEP five and FIO2 60% . Chest x-ray post-intubation showed ET tube above the brayan and bilateral interstitial pattern. Her laboratory data this morning is significant for hyperkalemia with potassium level 6.1, BUN of 118, creatinine 14.0. When seen the patient is intubated and sedated with Diprivan drip. Her current blood pressure is 179/90 with a pulse of 117. 06/02 Patient s/p HD 06/01 with 2L fluid removal, 2 L removed today as well. . Patient remains intubated on low dose Diprivan but awake, alert and follows commands. Afebrile. She went into Afib with RVR overnight and started on Amio drip. 06/03 Converted to sinus with PAC's on amiodarone. Remains on mechanical ventilation. UOP 50 ml over last 24 hours. Following commands on sedation, will do SBT. Plan for HD today per discussion with [facility]. 06/04 CPAP trial terminated yesterday after patient became tachycardic, anxious. HD was not performed yesterday but plan for today per nephrology. Will use Precedex to facilitate comfort with CPAP. UOP 150. 06/05: Patient had hemodialysis today with 3 L fluid removed. Tolerating CPAP well, awake alert following commands communicating by writing. Chest x-ray remains unchanged 06/06: Overnight placed on Precedex for agitation. Also required BIPAP for hypercapnea. Weaned off Precedex by afternoon today. Currently on Xanax when necessary. At this time on BiPAP. Patient is pleasant and communicative breathing comfortably. Bilateral wheezes on exam. I have started patient on IV Solu-Medrol, Symbicort and Spiriva Reconsult 06/12: Reconsulted secondary to acute hypoxemic respiratory failure. Currently on BiPAP with significant acidosis therefore intubated. Central line placed in the left IJ. 06/13: Afebrile. Currently off phenylephrine drip. Remains intubated. Currently in sinus bradycardia. White blood cell count decreased to 16,000. Will attempt PSV trial today. 06/14: Resting comfortably in bed. Tolerated PSV trial still 8 PM last night. During tube feeds. Positive BM. Following simple commands on minimal sedation. 06/15: Return to normal sinus rhythm. Diltiazem Initiated. Will Attempt PSV Trial Again Today. Positive BMs. We'll Check C. difficile. 06/16: No acute issues overnight. Hemoglobin 7. Will transfuse 1 unit during hemodialysis. Attempt spontaneous breathing trials postdialysis with attempt extubated. 06/17: Extubated yesterday without complication of hemodialysis. -3 L. Positive BM 3. Current 4 L nasal cannula. Less lethargic as AM. 06/18: Afebrile. Tolerating diet yesterday overnight. Currently in sinus bradycardia. Positive BM. On nasal cannula and feels better than yesterday Reconsult 06/20 Reconsult for resp distress. Patient was found with labored breathing she was subsequently place on BIPAP 05/11 with 40% FIO2. Afebrile. Awake and alert , CXR showed bibasilar opacities, stable chest. 06/21 No events overnight. Off BIPAP. Awake and alert on 2L oxygen with good sats. Afebrile. Subjective 06/22: Patient currently afebrile on room air. Continues to have rhonchorous breath sounds with end expiratory wheezing. Continues to have black tarry stools. Hemoglobin stable however. Known cecal ulcer status post clipping by Dr. Moseley with transverse/ascending colon ulcers. Very pleasant. Patient is a DNR DO NOT INTUBATE. Plan for permacath today. 06/28 Patient was transferred to [facility] last night for GI bleeding. She is currently receiving HD. s/p transfusion 2units PRBC and 2U FFP. 06/29 No events overnight. s/p HD yesterday with removal 2L. Bleeding scan yesterday showed no evidence of active bleeding. Hgb 7.3 this morning. 06/30 No events overnight. For EGD/colonoscopy today. Afebrile. s/p transfusion 1unit PRBC yesterday 07/01 No events overnight. s/p EGD yesterday showed Gastritis and Esophagitis. For HD today. H/H stable. Objective Vital Signs Date Time Temp Pulse Resp B/P (MAP) Pulse Ox O2 Delivery O2 Flow Rate FiO2 07/01/17 06:00 55 07/01/17 04:00 97.7 14 131/85 (100) 93 06/30/17 20:00 Nasal Cannula 2.00 Humidified 06/30/17 07:00 40 Intake and Output 07/01/17 07/01/17 07/02/17 08:00 16:00 00:00 Intake Total 620 ml Output Total 0 ml Balance 620 ml Result Diagram: 07/01/17 0508 07/01/17 0508 Other Results Laboratory Tests Test 07/01/17 05:08 White Blood Count 7.8 TH/MM3 Red Blood Count 2.92 MIL/MM3 Hemoglobin 8.7 GM/DL Hematocrit 26.0 % Mean Corpuscular Volume 89.0 FL Mean Corpuscular Hemoglobin 29.8 PG Mean Corpuscular Hemoglobin Concent 33.4 % Red Cell Distribution Width 17.1 % Platelet Count 65 TH/MM3 Mean Platelet Volume 9.7 FL Neutrophils (%) (Auto) 95.3 % Lymphocytes (%) (Auto) 1.3 % Monocytes (%) (Auto) 3.2 % Eosinophils (%) (Auto) 0.1 % Basophils (%) (Auto) 0.1 % Neutrophils # (Auto) 7.5 TH/MM3 Lymphocytes # (Auto) 0.1 TH/MM3 Monocytes # (Auto) 0.2 TH/MM3 Eosinophils # (Auto) 0.0 TH/MM3 Basophils # (Auto) 0.0 TH/MM3 CBC Comment AUTO DIFF Blood Urea Nitrogen 122 MG/DL Creatinine 6.07 MG/DL Random Glucose 378 MG/DL Calcium Level 7.7 MG/DL Sodium Level 133 MEQ/L Potassium Level 4.9 MEQ/L Chloride Level 92 MEQ/L Carbon Dioxide Level 25.3 MEQ/L Anion Gap 16 MEQ/L Estimat Glomerular Filtration Rate 7 ML/MIN Imaging Last Impressions Upper Extremity Ultrasound 06/28/17 Signed Impressions: Service Date/Time: Wednesday, June 28, 2017 08:00 - CONCLUSION: 1. No evidence for soft tissue abscess as questioned. 2. Thrombosed left cephalic vein in the antecubital fossa and proximal forearm. Berny Marie MD Liver Ultrasound 06/28/17 0000 Signed Impressions: Service Date/Time: Wednesday, June 28, 2017 07:48 - CONCLUSION: Echogenic liver possibly fatty infiltration. Tiny amount of fluid adjacent to the liver. Small bilateral pleural effusions. Status post cholecystectomy. Winston Li MD GI Bleed Scan Nuclear Medicine 06/28/17 Signed Impressions: Service Date/Time: Wednesday, June 28, 2017 12:31 - CONCLUSION: No definite evidence of active colonic GI bleeding is noted. 2 very tiny areas are identified the right midabdomen but they do not correspond with bowel activity. Winston Li MD Chest X-Ray 06/28/17 Signed Impressions: Service Date/Time: Wednesday, June 28, 2017 14:56 - CONCLUSION: Right IJ dual-lumen catheter in excellent position. Mild pulmonary vascular congestion with persistent cardiomegaly is unchanged Winston Li MD Central Venous Line 06/22/17 Signed Impressions: Service Date/Time: June 00:00 - CONCLUSION: Uncomplicated catheter removal. Robles Corral MD Catheter Placement X-Ray 06/22/17 Signed Impressions: Service Date/Time: June 14:04 - CONCLUSION: Uncomplicated PermaCath placement as above. Robles Corral MD Renal Ultrasound 05/31/17 0000 Signed Impressions: Service Date/Time: Wednesday, May 31, 2017 08:54 - CONCLUSION: 1. Abnormal appearance to the left kidney with diminutive size and poor delineation of the parenchymal architecture. 2. No gross abnormality seen in the right kidney. Aramis Scott MD Objective Remarks GENERAL: Patient is 76 yo female lying in bed in NAD SKIN: Warm and dry. No rash. Well-perfused. HEAD: Normocephalic. EYES: No scleral icterus. No injection or drainage. NECK: Supple, trachea midline. No JVD or lymphadenopathy. CARDIOVASCULAR: Irregularly irregular, RESPIRATORY: Breathing comfortably on 3 L nasal cannula. No wheezes Rales or rhonchi. GASTROINTESTINAL: Abdomen protuberant, soft, mildly distended. Nontender. Bowel sounds present. MUSCULOSKELETAL: Trace edema of all extremities. There is ~ 2 cm wound on left upper arm with central eschar of ~0.5 cm. There is surrounding swelling. . No surrounding erythema or cellulitis. No fluid or exudate expressed. NEURO: Awake and oriented 4. Moves all extremities spontaneously with no focal deficit. No facial droop. Date of Insertion: Jun 12, 2017 Line: Central Venous Catheter Side: Left Location: Internal, Jugular A/P Problem List: (1) DM2 (diabetes mellitus, type 2) ICD Code: E11.9 - Type 2 diabetes mellitus without complications Status: Chronic (2) Paroxysmal atrial fibrillation ICD Code: I48.0 - Paroxysmal atrial fibrillation Status: Acute (3) Acute blood loss anemia ICD Code: D62 - Acute posthemorrhagic anemia Status: Acute (4) Thrombocytopenia ICD Code: D69.6 - Thrombocytopenia, unspecified Assessment and Plan Neuro/Psych: Anxiety disorder NOS Awake and alert Alprazolam 0.5 mg by mouth every 8hours as needed for anxiety/home medication for anxiety Acetaminophen 650 mg liquid every 6 hours when necessary for fever Acetaminophen/hydrocodone 5/325 one tablet every 6 hours as needed Pain 1-5. two tab prn pain 6-10 Pulm: Acute hypercapnic respiratory failure - resolved Acute COPD exacerbation - resolved Tobacco abuse Extubated 06/05/17. Reintubated 06/12. Extubated 06/16. Continue with oxygen keep sats> 90%. Incentive spirometry while awake Albuterol/ipratropium aerosols every 4 hours with albuterol aerosols every 2 hours On budesonide/formoterol 160 g/4.5 g 2 puffs inhaled twice a day On Solumederol 40 mg IV q12. Pulm following, Dr. Hammonds CV: Hypertension Hyperlipidemia Paroxysmal atrial fibrillation in RVR. Monitor HR and BP keep MAP>65mmHg Inderal 10mg Q8, Imdur 30mg daily, Cardizem 60mgQ6 Echo showed 50-55% normal LV. Possible lipomatous hypertrophy of the inter- atrial septum Continue atorvastatin 80 mg by mouth daily Renal/FEN/: CKD Stage IV, on HD and probable ESRD with detention dialysis. Diabetic nephropathy R Permacath placed 06/22. Vascular surgery planning for AVF as outpatient. IHD M/W/F per Nephrology, Dr. Lee. s/p HD with 2L removal. on 06/28. For HD today Renal ultrasound 05/31 revealed medical renal disease left kidney/atrophy. Right kidney within normal limits On calcium acetate 1334 mg 3 times a day GI: Cecal ulcer with visible vessel status post clipping 2 06/19 Dr. Moseley Transverse/ascending colon ulcer Sigmoid diverticulosis Internal and external hemorrhoids Started on PO heart healthy diet s/p EGD 06/30: Esophagitis and Gastritis. s/p Colonoscopy 06/30: Severe diverticulosis was noted in the sigmoid colon, 3 x 5cm colitis was found in the transverse colon; The mucosa was erythematous, friable, ulcerated and oozing blood s/p EPi injection and ablated with APC. Internal/ External hemorrhoids On pantoprazole 40 mg po twice a day Bleeding scan 06/28: No active bleeding noted. GI is following. For repeat EGD/ colonoscopy today C diff negative. 2 06/19 s/p EGD, colonoscopy: gastritis, ulcer in cecum with visible vessel - clipped, , ascending and transverse colon ulcer, sigmoid diverticulosis, internal and external hemorrhoids. 06/23 EGD - Severe gastropathy, cauterized by Dr. Guerrero. ?cirrhosis. US Liver: Echogenic liver possibly fatty infiltration. Tiny amount of fluid adjacent to the liver. Small bilateral pleural effusions. Status post cholecystectomy Viral Hepatitis panel negative 06/01 ID: Acute community acquired pneumonia (resolved) Asymptomatic candiduria Off abx, monitor for signs of infections. Follow up on BC. Wound care consult. Check UA US UE: No evidence for soft tissue abscess as questioned. Thrombosed left cephalic vein in the antecubital fossa and proximal forearm. 06/01 Sputum Kleb pneumonia, E.coli 06/11 Urine cx: C. Glabrata and Albicans Endo: Diabetes mellitus Resume Detemir 25 units subcut q12 hours Continue with SSI- medium scale with Accu-Cheks Q6h Heme: DVT L IJ Vein. Superficial thrombus left cephalic vein at the level of the antecubital fossa and proximal arm Anemia consistent with anemia of chronic kidney disease Thrombocytopenia Coagulopathy On iron sulfate 325 mg daily. Monitor CBC. Received 2 units PRBC, 1 unit platelets and 2u FFP 06/27. Monitor CBC, coags and fibrinogen-INR 1.0 and Fibrinogen level 198. s/p transfuse 1unit PRBC 06/29 HIT ab negative. Hematology following, Dr. Foster. Continue Epogen lorena 10,000 units with hemodialysis Not candidate for anticoagulation at this point for IJ thrombus due to active bleeding. Further anticoagulation per Heme GI prophylaxis with pantoprazole 40 mill grams po twice a day and DVT prophylaxis with SCDs and no pharmacological prophylaxis in light of cecal ulcer /GI bleed Lines: R IJ permacath 06/22 #7. Has a peripheral IV. Per Dr. Hurtado- Patient states that she is agreeable to intubation if needed for procedure or for recurrent respiratory failure. She states she would be okay with trach if needed. In the setting of cardiac arrest, she does not want CPR, shocks, ACLS drugs or intubation. Palliative care following. Will sign off and transfer care to [facility] level 2 Felix Schultz MD Jul 01, 2017 08:25
[2017-07-01] MEDS: INSULIN DETEMIR 100 UNITS/ML VIAL SQ SCH ×2 (09:00→21:00)
[2017-07-01 09:49] LABS: PLATELET ESTIMATE SMEAR LOW (NORMAL); PLATELET MORPHOLOGY NORMAL (NORMAL); SCAN/DIFF AUTO DIFF CONFIRMED
--- NOTE | 2017-07-01 11:21 | HHI.GIFU ---
GI Follow-up Note Consult Follow-up Subjective: Patient laying in bed comfortably, no new complaints Last Impressions Upper Extremity Ultrasound 06/28/17 0000 Signed Impressions: Service Date/Time: Wednesday, June 28, 2017 08:00 - CONCLUSION: 1. No evidence for soft tissue abscess as questioned. 2. Thrombosed left cephalic vein in the antecubital fossa and proximal forearm. Berny Marie MD Liver Ultrasound 06/28/17 0000 Signed Impressions: Service Date/Time: Wednesday, June 28, 2017 07:48 - CONCLUSION: Echogenic liver possibly fatty infiltration. Tiny amount of fluid adjacent to the liver. Small bilateral pleural effusions. Status post cholecystectomy. Winston Li MD GI Bleed Scan Nuclear Medicine 06/28/17 0000 Signed Impressions: Service Date/Time: Wednesday, June 28, 2017 12:31 - CONCLUSION: No definite evidence of active colonic GI bleeding is noted. 2 very tiny areas are identified the right midabdomen but they do not correspond with bowel activity. Winston Li MD Chest X-Ray 06/28/17 0000 Signed Impressions: Service Date/Time: Wednesday, June 28, 2017 14:56 - CONCLUSION: Right IJ dual-lumen catheter in excellent position. Mild pulmonary vascular congestion with persistent cardiomegaly is unchanged Winston Li MD Central Venous Line 06/22/17 0000 Signed Impressions: Service Date/Time: June 00:00 - CONCLUSION: Uncomplicated catheter removal. Robles Corral MD Catheter Placement X-Ray 06/22/17 0000 Signed Impressions: Service Date/Time: June 14:04 - CONCLUSION: Uncomplicated PermaCath placement as above. Robles Corral MD Renal Ultrasound 05/31/17 0000 Signed Impressions: Service Date/Time: Wednesday, May 31, 2017 08:54 - CONCLUSION: 1. Abnormal appearance to the left kidney with diminutive size and poor delineation of the parenchymal architecture. 2. No gross abnormality seen in the right kidney. Aramis Scott MD Laboratory Tests Test 06/29/17 14:30 06/30/17 06:41 07/01/17 05:08 Hemoglobin 9.1 GM/DL 9.0 GM/DL 8.7 GM/DL Hematocrit 26.7 % 27.2 % 26.0 % White Blood Count 9.9 TH/MM3 7.8 TH/MM3 Red Blood Count 3.08 MIL/MM3 2.92 MIL/MM3 Mean Corpuscular Volume 88.2 FL 89.0 FL Mean Corpuscular Hemoglobin 29.3 PG 29.8 PG Mean Corpuscular Hemoglobin Concent 33.2 % 33.4 % Red Cell Distribution Width 16.8 % 17.1 % Platelet Count 71 TH/MM3 65 TH/MM3 Mean Platelet Volume 9.5 FL 9.7 FL Neutrophils (%) (Auto) 94.4 % 95.3 % Lymphocytes (%) (Auto) 1.2 % 1.3 % Monocytes (%) (Auto) 4.3 % 3.2 % Eosinophils (%) (Auto) 0.1 % 0.1 % Basophils (%) (Auto) 0.0 % 0.1 % Neutrophils # (Auto) 9.4 TH/MM3 7.5 TH/MM3 Lymphocytes # (Auto) 0.1 TH/MM3 0.1 TH/MM3 Monocytes # (Auto) 0.4 TH/MM3 0.2 TH/MM3 Eosinophils # (Auto) 0.0 TH/MM3 0.0 TH/MM3 Basophils # (Auto) 0.0 TH/MM3 0.0 TH/MM3 CBC Comment AUTO DIFF AUTO DIFF Differential Comment AUTO DIFF CONFIRMED AUTO DIFF CONFIRMED Platelet Estimate LOW LOW Platelet Morphology Comment NORMAL NORMAL Basophilic Stippling FAINT Blood Urea Nitrogen 94 MG/DL 122 MG/DL Creatinine 5.31 MG/DL 6.07 MG/DL Random Glucose 217 MG/DL 378 MG/DL Total Protein 6.2 GM/DL Albumin 3.6 GM/DL Calcium Level 7.9 MG/DL 7.7 MG/DL Alkaline Phosphatase 139 U/L Aspartate Amino Transf (AST/SGOT) 41 U/L Alanine Aminotransferase (ALT/SGPT) 32 U/L Total Bilirubin 1.6 MG/DL Sodium Level 138 MEQ/L 133 MEQ/L Potassium Level 4.3 MEQ/L 4.9 MEQ/L Chloride Level 95 MEQ/L 92 MEQ/L Carbon Dioxide Level 28.7 MEQ/L 25.3 MEQ/L Anion Gap 14 MEQ/L 16 MEQ/L Estimat Glomerular Filtration Rate 8 ML/MIN 7 ML/MIN Allergies Coded Allergies Type Severity Reaction Last Updated Verified Sulfa (Sulfonamide Antibiotics) Allergy Mild 05/30/17 Yes Active Scripts Medications Dose Route/Sig Max Daily Dose Days Date Category Lantus Inj (Insulin Glargine) 1,000 Unit/10 Ml Vial 75 Units SQ HS 05/30/17 Reported Xanax (Alprazolam) 0.25 Mg Tab 0.25 Mg PO Q8H PRN 05/30/17 Reported Enalapril (Enalapril Maleate) 20 Mg Tab 20 Mg PO BID 05/30/17 Reported Lasix (Furosemide) 20 Mg Tab 20 Mg PO DAILY 05/30/17 Reported Lasix (Furosemide) 20 Mg Tab 20 Mg PO DAILY 05/30/17 Reported Lipitor (Atorvastatin Calcium) 80 Mg Tab 80 Mg PO HS 05/30/17 Reported Objective: PHYSICAL EXAMINATION: Vitals signs stable No fever HEENT: Pupils round and reactive to light; normocephalic; atraumatic; no jaundice. Throat is clear. NECK: Neck is supple, no JVD, no lymphadenopathy. CHEST: Chest is clear to auscultation and percussion. CARDIAC: Regular rate and rhythm with no murmur gallop or rubs. ABDOMEN: Soft, nondistended, nontender; no hepatosplenomegaly; bowel sounds are present in all four quadrants. EXTREMITIES: No clubbing, cyanosis, or edema. 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 Available Data (labs, X- Rays, Procedues) : ASSESSMENT/PLAN: Seen and examined, no active bleeding reported. Monitor h/h closely. High risk for rebleed. Diet as tolerated. It was a pleasure seeing Silvia Wilkinson. Thank you for this consult. Entered by: Remedios Tamayo MD Jul 01, 2017 11:21
--- NOTE | 2017-07-01 11:48 | HHI.NPPN ---
Subjective History of Present Illness 76-year-old female with past medical history of hypertension, diabetes mellitus, hyperlipidemia, ischemic heart disease, chronic kidney disease, chronic obstructive pulmonary disease was admitted because of generalized weakness, decreased urine output. I he was called to see the patient for elevated BUN and creatinine. The patient is known to me from before. She has been following with me in the office and last time I saw her was on May 04 and at that time her creatinine was 2.2 with given the GFR of 19-20 she had advanced stage IV chronic kidney disease most likely because of diabetic nephropathy. Additional Remarks Patient is alert, with nasal cannula, Review of Systems General General Remarks Intubated and sedated. Objective Data Data Vital Signs Date Time Temp Pulse Resp B/P (MAP) Pulse Ox O2 Delivery O2 Flow Rate FiO2 07/01/17 08:38 93 Nasal Cannula 2.00 07/01/17 08:00 60 07/01/17 08:00 97.3 60 16 133/82 (99) 98 07/01/17 07:00 98 Nasal Cannula 2.00 07/01/17 06:00 55 07/01/17 04:00 71 07/01/17 04:00 97.7 73 14 131/85 (100) 93 07/01/17 02:00 64 07/01/17 00:00 97.6 91 22 147/84 (105) 94 07/01/17 00:00 70 06/30/17 22:00 81 06/30/17 20:00 77 06/30/17 20:00 98.1 92 24 148/76 (100) 93 06/30/17 20:00 Nasal Cannula 2.00 Humidified 06/30/17 19:02 94 Nasal Cannula 2.00 06/30/17 18:00 69 06/30/17 16:00 97.4 81 20 154/71 (98) 98 06/30/17 16:00 81 06/30/17 14:00 85 06/30/17 12:00 98.3 78 17 165/77 (106) 91 06/30/17 12:00 78 -: 07/01/17 0508 07/01/17 0508 Physical Exam General Appearance: No Acute Distress, Comfortable Eyes Eye Exam: Pupils Equal Throat Throat Exam: Oral Mucosa [place] & Moist Neck Neck Exam: Neck Supple Pulmonary Resp Exam: Breath Sounds Equal, Rhonchi, Decreased Bases, Diminished Breath Sounds, Poor Inspiratory Effort Cardiology CV Exam: Regular, Normal Sinus Rhythm Gastrointestinal/Abdomen GI Exam: Soft, Non-Tender, Bowel Sounds Present, Distended Extremeties Extremities Exam: Trace Edema Neurologic Neuro Exam: Alert, Awake, Oriented Psychiatric Psych Exam: Appropriate Responses Assessment/Plan Assessment Summary: [place]/Acute Renal Failure, Hypertension, CKD Stage IV Problem List: (1) Chronic kidney disease (CKD) ICD Codes: N18.9 - Chronic kidney disease, unspecified (2) Oliguria ICD Codes: R34 - Anuria and oliguria (3) Diarrhea ICD Codes: R19.7 - Diarrhea, unspecified (4) Metabolic acidosis ICD Codes: E87.2 - Acidosis Status: Acute (5) Uremia ICD Codes: N19 - Unspecified kidney failure Status: Acute (6) Acute renal failure ICD Codes: N17.9 - Acute kidney failure, unspecified Status: Acute Plan Patient has advance stage 4 chronic kidney disease, approach stage 5. Started on HD. Patient has COPD with high CO2 and developing SOB off and on. Off vent doing better BP is stable. Has tunneled catheter for HD Vascular called, they will do AVF as out patient. she is doing well seen at hemodialysis UF 2.5 L tolerating it well HD TTS Hb 8.7 on Epo Problem Qualifiers (1) Chronic kidney disease (CKD): Qualified Codes: N18.5 - Chronic kidney disease, stage 5 (2) Acute renal failure: Qualified Codes: N17.9 - Acute kidney failure, unspecified Mike Saeed MD Jul 01, 2017 11:47
[2017-07-01] MEDS: GENTAMICIN SULFATE (DIALYSIS USE ONLY) 20 MG/2 ML VIAL OTHER PRN (12:13)
[2017-07-01] MEDS: HEPARIN SODIUM - IV 10,000 UNITS/10 ML VIAL PRN (12:14)
[2017-07-01] MEDS: EPOETIN ALFA 10,000 UNITS/ML VIAL IV PUSH PRN (12:15)
[2017-07-01] MEDS: ALBUMIN 25% INJ 100 ML IV PRN (12:18)
--- NOTE | 2017-07-01 17:42 | HHI.PR ---
Subjective Remarks 76 YOWF with VDRF,Ac renal Failure,DM, Met acidosis No Fever Alert awake feels weak, mild sob Breathing better Objective Vital Signs Vital Signs Date Time Temp Pulse Resp B/P (MAP) Pulse Ox O2 Delivery O2 Flow Rate FiO2 07/01/17 16:00 95.2 81 17 136/75 (95) 96 07/01/17 14:37 93 2.00 07/01/17 13:10 96.1 60 17 129/61 (83) 90 07/01/17 08:38 93 Nasal Cannula 2.00 07/01/17 08:00 60 07/01/17 08:00 97.3 60 16 133/82 (99) 98 07/01/17 07:00 98 Nasal Cannula 2.00 07/01/17 06:00 55 07/01/17 04:00 71 07/01/17 04:00 97.7 73 14 131/85 (100) 93 07/01/17 02:00 64 07/01/17 00:00 97.6 91 22 147/84 (105) 94 07/01/17 00:00 70 06/30/17 22:00 81 06/30/17 20:00 77 06/30/17 20:00 98.1 92 24 148/76 (100) 93 06/30/17 20:00 Nasal Cannula 2.00 Humidified 06/30/17 19:02 94 Nasal Cannula 2.00 06/30/17 18:00 69 I/O 06/30/17 06/30/17 06/30/17 07/01/17 07/01/17 07/01/17 07:00 15:00 23:00 07:00 15:00 23:00 Intake Total 3700 ml 150 ml 480 ml 620 ml Output Total 0 ml 2300 ml Balance 3700 ml 150 ml 480 ml 620 ml -2300 ml Intake Oral 3700 ml 480 ml 620 ml Other 150 ml Output Urine Total 0 ml Hemodialysis 2300 ml # Voids 0 0 # Bowel Movements 7 1 Result Diagram: 07/01/17 05007/01/17 0508 Objective Remarks GENERAL: WBWN WF, On NC SKIN: Warm and dry. HEAD: Normocephalic. EYES: No scleral icterus. No injection or drainage. NECK: Supple, trachea midline. No JVD or lymphadenopathy. CARDIOVASCULAR: Regular rate and rhythm without murmurs, gallops, or rubs. RESPIRATORY: Breath sounds equal bilaterally. No accessory muscle use. GASTROINTESTINAL: Abdomen soft, non-tender, nondistended. MUSCULOSKELETAL: No cyanosis, or edema. BACK: Nontender without obvious deformity. No CVA tenderness. A/P Assessment and Plan VDRF, s/p Extubation COPD Ac renal Failure DM Nicotine use AF with RVR, converted to NSR PLAN: Supplement 02, keep sat 88-92% Monitor RYAN Tucker qid. Monitor H/H Jac Hammonds MD Jul 01, 2017 17:42
[2017-07-01] MEDS: ATORVASTATIN 40 MG TAB PO SCH (21:03)
[2017-07-02] VITALS (7 sets, daily range): BP systolic 123–153; BP diastolic 64–84; PULSE 63–97; RESP 17–20; TEMP 95.2–98.6; O2SAT 92–96
[2017-07-02] MEDS: DILTIAZEM HCL 60 MG TAB PO SCH ×4 (03:02→20:11)
[2017-07-02] MEDS: CHLORHEXIDINE GLUCONATE 2 % 1 PACK (2 CLOTHS)(taper/protocol) TOPICAL SCH (04:00)
[2017-07-02] MEDS: PROPRANOLOL HCL 10 MG TAB PO SCH ×3 (05:57→20:11)
[2017-07-02] MEDS: ISOSORBIDE MONONITRATE 30 MG TAB PO SCH (05:57)
[2017-07-02] MEDS: INSULIN NovoLIN REGULAR SUPPLEMENTAL SCALE SQ SCH ×5 (06:06→23:53)
[2017-07-02 07:45] LABS: AUTOMATED NEUTROPHIL # 8.6 TH/MM3 (1.8-7.7); BASOPHIL % 0.2 % (0.0-2.0); HEMATOCRIT 25.8 % (35.0-46.0); LYMPH % 1.8 % (9.0-44.0); LYMPHOCYTE # 0.2 TH/MM3 (1.0-4.8); MEAN CELL VOLUME 88.9 FL (80.0-100.0); MEAN CORPUSCULAR HEMOGLOBIN 30.1 PG (27.0-34.0); MEAN CORPUSCULAR HGB CONC 33.9 % (32.0-36.0); MONO % 4.6 % (0.0-8.0); NEUT % 93.4 % (16.0-70.0); PLATELET COUNT 62 TH/MM3 (150-450); RED CELL DISTRIBUTION WIDTH 17.1 % (11.6-17.2); WHITE BLOOD COUNT 9.2 TH/MM3 (4.0-11.0)
[2017-07-02 07:48] LABS: HEMO FLAGS AUTO DIFF
[2017-07-02 08:11] LABS: BICARBONATE 27.3 MEQ/L (21.0-32.0); POTASSIUM 4.6 MEQ/L (3.5-5.1)
[2017-07-02 08:42] LABS: BANDS 1 % (0-6); MYELOCYTES 1 % (0-0); NEUTROPHIL # MANUAL DIFF 9.1 TH/MM3 (1.8-7.7); POLYS (SEG NEUTROPHILS) 97 % (16-70); WBC DIFF SAMPLE 100
[2017-07-02 08:43] LABS: PLATELET ESTIMATE SMEAR LOW (NORMAL)
[2017-07-02 08:44] LABS: PLATELET MORPHOLOGY ENLARGED (NORMAL)
[2017-07-02 08:45] LABS: OVALOCYTES 1+ (NORMAL); SCAN/DIFF FINAL DIFF MANUAL
[2017-07-02] MEDS: BUDESONIDE-FORMOTEROL 160/4.5 MCG INHALER INH SCH ×2 (09:00→20:11)
[2017-07-02] MEDS: SODIUM CHLORIDE 0.9% FLUSH 10 ML FLUSH IV FLUSH SCH ×3 (09:00→21:00)
[2017-07-02] MEDS: VITAMIN B CMPLX/VITC/FOLIC AC CAP PO SCH (09:40)
[2017-07-02] MEDS: methylPREDNISolone SOD SUCC 40 MG/1 ML VIAL IV PUSH SCH ×2 (09:41→20:11)
[2017-07-02] MEDS: FERROUS SULFATE 325 MG (65 MG ELEMENTAL IRON) TAB PO SCH (09:41)
[2017-07-02] MEDS: PANTOPRAZOLE SODIUM 40 MG VIAL IV PUSH SCH ×2 (09:41→20:11)
[2017-07-02] MEDS: INSULIN DETEMIR 100 UNITS/ML VIAL SQ SCH ×2 (09:42→20:21)
[2017-07-02] MEDS: CALCIUM ACETATE 667 MG CAP PO SCH ×3 (09:42→18:37)
--- NOTE | 2017-07-02 12:02 | HHI.GIFU ---
GI Follow-up Note Consult Follow-up Subjective: Patient laying in bed comfortably, no new complaints Objective: PHYSICAL EXAMINATION: Vitals signs stable No fever HEENT: Pupils round and reactive to light; normocephalic; atraumatic; no jaundice. Throat is clear. NECK: Neck is supple, no JVD, no lymphadenopathy. CHEST: Chest is clear to auscultation and percussion. CARDIAC: Regular rate and rhythm with no murmur gallop or rubs. ABDOMEN: Soft, nondistended, nontender; no hepatosplenomegaly; bowel sounds are present in all four quadrants. EXTREMITIES: No clubbing, cyanosis, or edema. 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 Available Data (labs, X- Rays, Procedues) : Last Impressions Upper Extremity Ultrasound 06/28/17 0000 Signed Impressions: Service Date/Time: Wednesday, June 28, 2017 08:00 - CONCLUSION: 1. No evidence for soft tissue abscess as questioned. 2. Thrombosed left cephalic vein in the antecubital fossa and proximal forearm. Berny Marie MD Liver Ultrasound 06/28/17 0000 Signed Impressions: Service Date/Time: Wednesday, June 28, 2017 07:48 - CONCLUSION: Echogenic liver possibly fatty infiltration. Tiny amount of fluid adjacent to the liver. Small bilateral pleural effusions. Status post cholecystectomy. Winston Li MD GI Bleed Scan Nuclear Medicine 06/28/17 0000 Signed Impressions: Service Date/Time: Wednesday, June 28, 2017 12:31 - CONCLUSION: No definite evidence of active colonic GI bleeding is noted. 2 very tiny areas are identified the right midabdomen but they do not correspond with bowel activity. Winston Li MD Chest X-Ray 06/28/17 0000 Signed Impressions: Service Date/Time: Wednesday, June 28, 2017 14:56 - CONCLUSION: Right IJ dual-lumen catheter in excellent position. Mild pulmonary vascular congestion with persistent cardiomegaly is unchanged Winston Li MD Central Venous Line 06/22/17 0000 Signed Impressions: Service Date/Time: June 00:00 - CONCLUSION: Uncomplicated catheter removal. Robles Corral MD Catheter Placement X-Ray 06/22/17 0000 Signed Impressions: Service Date/Time: June 14:04 - CONCLUSION: Uncomplicated PermaCath placement as above. Robles Corral MD Renal Ultrasound 05/31/17 0000 Signed Impressions: Service Date/Time: Wednesday, May 31, 2017 08:54 - CONCLUSION: 1. Abnormal appearance to the left kidney with diminutive size and poor delineation of the parenchymal architecture. 2. No gross abnormality seen in the right kidney. Aramis Scott MD Laboratory Tests Test 07/01/17 05:08 07/02/17 06:30 White Blood Count 7.8 TH/MM3 9.2 TH/MM3 Red Blood Count 2.92 MIL/MM3 2.90 MIL/MM3 Hemoglobin 8.7 GM/DL 8.7 GM/DL Hematocrit 26.0 % 25.8 % Mean Corpuscular Volume 89.0 FL 88.9 FL Mean Corpuscular Hemoglobin 29.8 PG 30.1 PG Mean Corpuscular Hemoglobin Concent 33.4 % 33.9 % Red Cell Distribution Width 17.1 % 17.1 % Platelet Count 65 TH/MM3 62 TH/MM3 Mean Platelet Volume 9.7 FL 9.5 FL Neutrophils (%) (Auto) 95.3 % 93.4 % Lymphocytes (%) (Auto) 1.3 % 1.8 % Monocytes (%) (Auto) 3.2 % 4.6 % Eosinophils (%) (Auto) 0.1 % 0.0 % Basophils (%) (Auto) 0.1 % 0.2 % Neutrophils # (Auto) 7.5 TH/MM3 8.6 TH/MM3 Lymphocytes # (Auto) 0.1 TH/MM3 0.2 TH/MM3 Monocytes # (Auto) 0.2 TH/MM3 0.4 TH/MM3 Eosinophils # (Auto) 0.0 TH/MM3 0.0 TH/MM3 Basophils # (Auto) 0.0 TH/MM3 0.0 TH/MM3 CBC Comment AUTO DIFF AUTO DIFF Differential Comment AUTO DIFF CONFIRMED FINAL DIFF MANUAL Platelet Estimate LOW LOW Platelet Morphology Comment NORMAL ENLARGED Blood Urea Nitrogen 122 MG/DL 77 MG/DL Creatinine 6.07 MG/DL 4.14 MG/DL Random Glucose 378 MG/DL 190 MG/DL Calcium Level 7.7 MG/DL 8.3 MG/DL Sodium Level 133 MEQ/L 135 MEQ/L Potassium Level 4.9 MEQ/L 4.6 MEQ/L Chloride Level 92 MEQ/L 94 MEQ/L Carbon Dioxide Level 25.3 MEQ/L 27.3 MEQ/L Anion Gap 16 MEQ/L 14 MEQ/L Estimat Glomerular Filtration Rate 7 ML/MIN 10 ML/MIN Differential Total Cells Counted 100 Neutrophils % (Manual) 97 % Band Neutrophils % 1 % Monocytes % 1 % Neutrophils # (Manual) 9.1 TH/MM3 Myelocytes 1 % Basophilic Stippling FAINT Ovalocytes 1+ Allergies Coded Allergies Type Severity Reaction Last Updated Verified Sulfa (Sulfonamide Antibiotics) Allergy Mild 05/30/17 Yes Active Scripts Medications Dose Route/Sig Max Daily Dose Days Date Category Lantus Inj (Insulin Glargine) 1,000 Unit/10 Ml Vial 75 Units SQ HS 05/30/17 Reported Xanax (Alprazolam) 0.25 Mg Tab 0.25 Mg PO Q8H PRN 05/30/17 Reported Enalapril (Enalapril Maleate) 20 Mg Tab 20 Mg PO BID 05/30/17 Reported Lasix (Furosemide) 20 Mg Tab 20 Mg PO DAILY 05/30/17 Reported Lasix (Furosemide) 20 Mg Tab 20 Mg PO DAILY 05/30/17 Reported Lipitor (Atorvastatin Calcium) 80 Mg Tab 80 Mg PO HS 05/30/17 Reported ASSESSMENT/PLAN: Seen and examined with STATION CHIEF, doing well with no obvious bleeding. Encouraged to ambulate. Remains at high risk for rebleeding from Colon lesions. It was a pleasure seeing Silvia Wilkinson. Thank you for this consult. Entered by: Remedios Tamayo MD Jul 02, 2017 12:02
--- NOTE | 2017-07-02 13:02 | HHI.PR ---
Subjective Remarks The patient is a 76-year-old female with past medical history of hypertension, hyperlipidemia, diabetes mellitus, COPD, chronic kidney disease, who was admitted to [facility] yesterday under hospitalist service for acute renal failure and COPD exacerbation. On arrival the patient had BUN of 99 with a creatinine of 14 and potassium level 4.8. Chest x-ray on admission showed no evidence of any acute cardiopulmonary disease. She was seen by Dr. Lee from nephrology service and placed on bicarb drip. A renal ultrasound was obtained which showed no evidence of hydronephrosis. Her renal function continued to worsen. A Halicat was called this morning for respiratory distress. She was subsequently transferred to ICU and was intubated by Dr. Davila, the ED physician. ABG post-intubation showed severe hypercapnic and metabolic acidosis with a pH of 6.89, CO2 63, bicarb 12, pAO2 211, saturation 96 % on PRVC mode rate of 14, tidal volume 500. I time one, PEEP five and FIO2 60% . Chest x-ray post-intubation showed ET tube above the brayan and bilateral interstitial pattern. Her laboratory data this morning is significant for hyperkalemia with potassium level 6.1, BUN of 118, creatinine 14.0. When seen the patient is intubated and sedated with Diprivan drip. Her current blood pressure is 179/90 with a pulse of 117. 06/02 Patient s/p HD 06/01 with 2L fluid removal, 2 L removed today as well. . Patient remains intubated on low dose Diprivan but awake, alert and follows commands. Afebrile. She went into Afib with RVR overnight and started on Amio drip. 06/03 Converted to sinus with PAC's on amiodarone. Remains on mechanical ventilation. UOP 50 ml over last 24 hours. Following commands on sedation, will do SBT. Plan for HD today per discussion with ORGANIZATION DEVELOPMENT CONSULTANT. 06/04 CPAP trial terminated yesterday after patient became tachycardic, anxious. HD was not performed yesterday but plan for today per nephrology. Will use Precedex to facilitate comfort with CPAP. UOP 150. 06/05: Patient had hemodialysis today with 3 L fluid removed. Tolerating CPAP well, awake alert following commands communicating by writing. Chest x-ray remains unchanged 06/06: Overnight placed on Precedex for agitation. Also required BIPAP for hypercapnea. Weaned off Precedex by afternoon today. Currently on Xanax when necessary. At this time on BiPAP. Patient is pleasant and communicative breathing comfortably. Bilateral wheezes on exam. I have started patient on IV Solu-Medrol, Symbicort and Spiriva Reconsult 06/12: Reconsulted secondary to acute hypoxemic respiratory failure. Currently on BiPAP with significant acidosis therefore intubated. Central line placed in the left IJ. 06/13: Afebrile. Currently off phenylephrine drip. Remains intubated. Currently in sinus bradycardia. White blood cell count decreased to 16,000. Will attempt PSV trial today. 06/14: Resting comfortably in bed. Tolerated PSV trial still 8 PM last night. During tube feeds. Positive BM. Following simple commands on minimal sedation. 06/15: Return to normal sinus rhythm. Diltiazem Initiated. Will Attempt PSV Trial Again Today. Positive BMs. We'll Check C. difficile. 06/16: No acute issues overnight. Hemoglobin 7. Will transfuse 1 unit during hemodialysis. Attempt spontaneous breathing trials postdialysis with attempt extubated. 06/17: Extubated yesterday without complication of hemodialysis. -3 L. Positive BM 3. Current 4 L nasal cannula. Less lethargic as AM. 06/18: Afebrile. Tolerating diet yesterday overnight. Currently in sinus bradycardia. Positive BM. On nasal cannula and feels better than yesterday Reconsult 06/20 Reconsult for resp distress. Patient was found with labored breathing she was subsequently place on BIPAP 05/11 with 40% FIO2. Afebrile. Awake and alert , CXR showed bibasilar opacities, stable chest. 06/21 No events overnight. Off BIPAP. Awake and alert on 2L oxygen with good sats. Afebrile. Subjective 06/22: Patient currently afebrile on room air. Continues to have rhonchorous breath sounds with end expiratory wheezing. Continues to have black tarry stools. Hemoglobin stable however. Known cecal ulcer status post clipping by Dr. Moseley with transverse/ascending colon ulcers. Very pleasant. Patient is a DNR DO NOT INTUBATE. Plan for permacath today. 06/28 Patient was transferred to [place] [facility] last night for GI bleeding. She is currently receiving HD. s/p transfusion 2units PRBC and 2U FFP. 06/29 No events overnight. s/p HD yesterday with removal 2L. Bleeding scan yesterday showed no evidence of active bleeding. Hgb 7.3 this morning. 06/30 No events overnight. For EGD/colonoscopy today. Afebrile. s/p transfusion 1unit PRBC yesterday 07/01 No events overnight. s/p EGD yesterday showed Gastritis and Esophagitis. For HD today. H/H stable. 07-02 TRANSFERRED BACK TO OUR SERVICE ON HD NEEDS OUTPT HD SET UP DW RN AND PT AND FAMILY AT BEDSIDE Needs physical therapy and occupational therapy Objective Vitals Vital Signs Date Time Temp Pulse Resp B/P (MAP) Pulse Ox O2 Delivery O2 Flow Rate FiO2 07/02/17 12:00 96.4 76 17 153/67 (95) 95 07/02/17 08:00 97.0 65 19 123/65 (84) 95 07/02/17 06:26 93 Nasal Cannula 2.00 07/02/17 04:00 97.9 63 17 124/84 (97) 93 07/02/17 03:28 94 2.00 07/02/17 00:00 97.6 67 17 151/75 (100) 94 07/01/17 20:00 96.5 75 17 117/57 (77) 94 07/01/17 19:00 74 07/01/17 16:00 95.2 81 17 136/75 (95) 96 07/01/17 14:37 93 2.00 07/01/17 13:10 96.1 60 17 129/61 (83) 90 I/O 07/01/17 07/01/17 07/01/17 07/02/17 07/02/17 07/02/17 07:00 15:00 23:00 07:00 15:00 23:00 Intake Total 620 ml 740 ml 240 ml Output Total 0 ml 2300 ml Balance 620 ml -2300 ml 740 ml 240 ml Intake Oral 620 ml 740 ml 240 ml Output Urine Total 0 ml Hemodialysis 2300 ml # Voids 0 0 # Bowel Movements 1 0 Result Diagram: 07/02/1762907/02/17 06 Other Results Laboratory Tests Test 06/29/17 14:30 06/30/17 06:41 07/01/17 05:08 07/02/17 06:30 Hemoglobin 9.1 GM/DL 9.0 GM/DL 8.7 GM/DL 8.7 GM/DL Hematocrit 26.7 % 27.2 % 26.0 % 25.8 % White Blood Count 9.9 TH/MM3 7.8 TH/MM3 9.2 TH/MM3 Red Blood Count 3.08 MIL/MM3 2.92 MIL/MM3 2.90 MIL/MM3 Mean Corpuscular Volume 88.2 FL 89.0 FL 88.9 FL Mean Corpuscular Hemoglobin 29.3 PG 29.8 PG 30.1 PG Mean Corpuscular Hemoglobin Concent 33.2 % 33.4 % 33.9 % Red Cell Distribution Width 16.8 % 17.1 % 17.1 % Platelet Count 71 TH/MM3 65 TH/MM3 62 TH/MM3 Mean Platelet Volume 9.5 FL 9.7 FL 9.5 FL Neutrophils (%) (Auto) 94.4 % 95.3 % 93.4 % Lymphocytes (%) (Auto) 1.2 % 1.3 % 1.8 % Monocytes (%) (Auto) 4.3 % 3.2 % 4.6 % Eosinophils (%) (Auto) 0.1 % 0.1 % 0.0 % Basophils (%) (Auto) 0.0 % 0.1 % 0.2 % Neutrophils # (Auto) 9.4 TH/MM3 7.5 TH/MM3 8.6 TH/MM3 Lymphocytes # (Auto) 0.1 TH/MM3 0.1 TH/MM3 0.2 TH/MM3 Monocytes # (Auto) 0.4 TH/MM3 0.2 TH/MM3 0.4 TH/MM3 Eosinophils # (Auto) 0.0 TH/MM3 0.0 TH/MM3 0.0 TH/MM3 Basophils # (Auto) 0.0 TH/MM3 0.0 TH/MM3 0.0 TH/MM3 CBC Comment AUTO DIFF AUTO DIFF AUTO DIFF Differential Comment AUTO DIFF CONFIRMED AUTO DIFF CONFIRMED FINAL DIFF MANUAL Platelet Estimate LOW LOW LOW Platelet Morphology Comment NORMAL NORMAL ENLARGED Basophilic Stippling FAINT FAINT Blood Urea Nitrogen 94 MG/DL 122 MG/DL 77 MG/DL Creatinine 5.31 MG/DL 6.07 MG/DL 4.14 MG/DL Random Glucose 217 MG/DL 378 MG/DL 190 MG/DL Total Protein 6.2 GM/DL Albumin 3.6 GM/DL Calcium Level 7.9 MG/DL 7.7 MG/DL 8.3 MG/DL Alkaline Phosphatase 139 U/L Aspartate Amino Transf (AST/SGOT) 41 U/L Alanine Aminotransferase (ALT/SGPT) 32 U/L Total Bilirubin 1.6 MG/DL Sodium Level 138 MEQ/L 133 MEQ/L 135 MEQ/L Potassium Level 4.3 MEQ/L 4.9 MEQ/L 4.6 MEQ/L Chloride Level 95 MEQ/L 92 MEQ/L 94 MEQ/L Carbon Dioxide Level 28.7 MEQ/L 25.3 MEQ/L 27.3 MEQ/L Anion Gap 14 MEQ/L 16 MEQ/L 14 MEQ/L Estimat Glomerular Filtration Rate 8 ML/MIN 7 ML/MIN 10 ML/MIN Differential Total Cells Counted 100 Neutrophils % (Manual) 97 % Band Neutrophils % 1 % Monocytes % 1 % Neutrophils # (Manual) 9.1 TH/MM3 Myelocytes 1 % Ovalocytes 1+ Imaging Last Impressions Upper Extremity Ultrasound 06/28/17 0000 Signed Impressions: Service Date/Time: Wednesday, June 28, 2017 08:00 - CONCLUSION: 1. No evidence for soft tissue abscess as questioned. 2. Thrombosed left cephalic vein in the antecubital fossa and proximal forearm. Berny Marie MD Liver Ultrasound 06/28/17 0000 Signed Impressions: Service Date/Time: Wednesday, June 28, 2017 07:48 - CONCLUSION: Echogenic liver possibly fatty infiltration. Tiny amount of fluid adjacent to the liver. Small bilateral pleural effusions. Status post cholecystectomy. Winston Li MD GI Bleed Scan Nuclear Medicine 06/28/17 0000 Signed Impressions: Service Date/Time: Wednesday, June 28, 2017 12:31 - CONCLUSION: No definite evidence of active colonic GI bleeding is noted. 2 very tiny areas are identified the right midabdomen but they do not correspond with bowel activity. Winston Li MD Chest X-Ray 06/28/17 0000 Signed Impressions: Service Date/Time: Wednesday, June 28, 2017 14:56 - CONCLUSION: Right IJ dual-lumen catheter in excellent position. Mild pulmonary vascular congestion with persistent cardiomegaly is unchanged Winston Li MD Central Venous Line 06/22/17 0000 Signed Impressions: Service Date/Time: June 00:00 - CONCLUSION: Uncomplicated catheter removal. Robles Corral MD Catheter Placement X-Ray 06/22/17 0000 Signed Impressions: Service Date/Time: June 14:04 - CONCLUSION: Uncomplicated PermaCath placement as above. Robles Corral MD Renal Ultrasound 05/31/17 0000 Signed Impressions: Service Date/Time: Wednesday, May 31, 2017 08:54 - CONCLUSION: 1. Abnormal appearance to the left kidney with diminutive size and poor delineation of the parenchymal architecture. 2. No gross abnormality seen in the right kidney. Aramis Scott MD Objective Remarks GENERAL: Awake alert oriented talkative and cooperative appears stated age SKIN: Warm and dry. HEAD: Atraumatic. Normocephalic. EYES: Pupils equal and round. No scleral icterus. No injection or drainage. Extraocular muscles intact ENT: No nasal bleeding or discharge. Mucous membranes pink and moist. Tongue is midline NECK: Trachea midline. No JVD. Supple dialysis catheter in place CARDIOVASCULAR: Regular rate and rhythm. S1 and S2 no S3 or S4 no heave or thrill or rub or gallop RESPIRATORY: No accessory muscle use. Clear to auscultation. Breath sounds equal bilaterally. GASTROINTESTINAL: Abdomen soft, non-tender, nondistended. Hepatic and splenic margins not palpable. MUSCULOSKELETAL: Extremities without clubbing, cyanosis, or edema. No obvious deformities. NEUROLOGICAL: Awake and alert. No obvious cranial nerve deficits. Motor grossly within normal limits. Five out of 5 muscle strength in the arms and legs. Normal speech. PSYCHIATRIC: Appropriate mood and affect; insight and judgment normal. Procedures Date of Insertion: Jun 12, 2017 Line: Central Venous Catheter Side: Left Location: Internal, Jugular Post Procedure Progress Note Pre Procedure Diagnosis: (1) Acute renal failure Post Procedure Diagnosis: (1) Acute renal failure (2) Chronic kidney disease (CKD) Procedure Date: Jun 22, 2017 Supervising Radiologist: Robles Corral Proceduralist/Assist: Ervin Jennings RT(R), RT Bay(R) Anesthesia: Local, Analgesia, Conscious Sedation Plan of Activity Patient to Unit: PACU Patient Condition: Good See PACS Report for procedural detail/treatment Central Venous Access Device Procedure 1 Right Internal Jugular Hemodialysis Catheter Tunneled Placement dual lumen Finnish: 15 PICC Line Length (cm): 23 Robles Corral MD Jun 22, 2017 15:38 <Electronically signed by Robles Corral MD> 06/22/17 1538 COLONOSCOPY PROCEDURE REPORT EXAM DATE: 06/30/2017 PATIENT NAME: Silvia Wilkinson MR #: [id number] BIRTHDATE: 1940 ENDOSCOPIST: Remedios Varela MD ORDER #: [id number] TRANSPORTATION DRIVER: Syed Brown and Danni Longo STATUS: inpatient INDICATIONS: The patient is a 76 yr old female here for a colonoscopy due to hematochezia and iron deficiency anemia PROCEDURE PERFORMED: Colonoscopy with ablation Colonoscopy with GI bleeding control MEDICATIONS: None and Per Anesthesia. PREP QUALITY: The [facility] Bowel Prep Score was Right colon 2, Mid colon 2, and Left colon 2. Total = 6. PREP TYPE:GoLytely PREP TYPE:Type: ESTIMATED BLOOD LOSS: None CONSENT: The patient understands the risks and benefits of the procedure and understands that these risks include, but are not limited to: sedation, allergic reaction, infection, perforation and/or bleeding. Alternative means of evaluation and treatment include, among others: physical exam, x-rays, and/or surgical intervention. The patient elects to proceed with this endoscopic procedure. medical equipment was checked for proper function. Hand hygiene and appropriate measures for infection prevention was taken. After the risks, benefits and alternatives of the procedure were thoroughly explained, Informed consent was verified, confirmed and timeout was successfully executed by the treatment team. A digital exam revealed external hemorrhoids The Pentax EC-[id number] endoscope was introduced through the anus and advanced to the cecum, which was identified by both the appendix and ileocecal valve. The instrument was then slowly withdrawn as the colon was fully examined. COLON FINDINGS: Severe diverticulosis was noted in the sigmoid colon. No bleeding was noted from the diverticulosis. A 3 x 5cm patch of colitis was found in the transverse colon. The mucosa was erythematous, friable, ulcerated and oozing blood. Not clear what this area is? Possible area of previous endoscopic therapy. Injected with 5 cc of epinephrine, and ablated with APC. Good hemostasis obtained. Retroflexed views revealed internal hemorrhoids and Retroflexed views revealed medium internal hemorrhoids The scope was then completely withdrawn from the patient and the procedure terminated. PROCEDURE WITHDRAWAL TIME:10minutes ADVERSE EVENTS: There were no complications. IMPRESSIONS: 1. Severe diverticulosis was noted in the sigmoid colon 2. 3 x 5cm colitis was found in the transverse colon; The mucosa was erythematous, friable, ulcerated and oozing blood; Not clear what this area is? Possible area of previous endoscopic therapy. Injected with 5 cc of epinephrine, and ablated with APC. Good hemostasis obtained 3. Retroflexed views revealed internal hemorrhoids 4. Retroflexed views revealed medium internal hemorrhoids 5. Revealed external hemorrhoids RECOMMENDATIONS: 1. Continue surveillance 2. Yearly hemoccult 3. Monitor H/H, angiogram with embolization if further bleed. RECALL: Return 3 months Colonoscopy EGD PROCEDURE REPORT EXAM DATE: 06/30/2017 PATIENT NAME: Silvia Wilkinson MR #: [id number] BIRTHDATE: 1940 ATTENDING: Remedios Varela MD ORDER #: [id number] TRANSPORTATION DRIVER: Syed Brown and Danni Longo STATUS: inpatient INDICATIONS: The patient is a 76 yr old female here for an EGD due to acute post hemorrhagic anemia PROCEDURE PERFORMED: EGD w/ biopsy MEDICATIONS: None and Per Anesthesia. TOPICAL ANESTHETIC: CONSENT: The patient understands the risks and benefits of the procedure and understands that these risks include, but are not limited to: sedation, allergic reaction, infection, perforation and/or bleeding. Alternative means of evaluation and treatment include, among others: physical exam, x-rays, and/or surgical intervention. The patient elects to proceed with this endoscopic procedure. medical equipment was checked for proper function. Hand hygiene and appropriate measures for infection prevention was taken. After the risks, benefits and alternatives of the procedure were thoroughly explained, Informed consent was verified, confirmed and timeout was successfully executed by the treatment team. The patient was anesthetized with topical anesthesia and the EC-[id number] (Pedi C) endoscope was introduced through the mouth and advanced to the second portion of the duodenum. Retroflexed views revealed no abnormalities The gastroscope was then slowly withdrawn and removed. ESOPHAGUS: There was LA Class B esophagitis noted. STOMACH: There was erythematous severe and erosive gastritis in the gastric antrum. A biopsy was performed using cold forceps. Sample obtained for microbiology. Sample sent for histology. DUODENUM: The duodenal mucosa appeared normal. ADVERSE EVENTS: There were no complications. IMPRESSIONS: 1. There was LA Class B esophagitis noted 2. There was erythematous gastritis in the gastric antrum; biopsy was performed 3. Normal duodenal mucosa 4. Retroflexed views revealed no abnormalities RECOMMENDATIONS: 1. Await biopsy results. Biopsy results will not be ready for 7-10 days. If you don't hear from us in two weeks, call our office for biopsy results. 2. Anti-reflux regimen 3. Continue PPI PATIENT CONDITION: stable DISPOSITION: Inpatient REPEAT EXAM: Return 1 year EGD pending biopsy results Medications and IVs Current Medications Sodium Chloride (NS Flush) 2 ml UNSCH PRN IV FLUSH FLUSH AFTER USING IV ACCESS ; Start 05/30/17 at 20:00; Stop 05/30/17 at 21:44; Status DC Sodium Chloride 1,000 ml @ 999 mls/hr BOLUS ONCE IV Last administered on 22:13; Start 05/30/17 at 20:45; Stop 05/30/17 at 21:45; Status DC Sodium Chloride 1,000 ml @ 125 mls/hr Q8H IV Last administered on 05/30/17 23:53; Start 05/30/17 at 21:06; Stop 05/31/17 at 05:05; Status DC Sodium Chloride (NS Flush) 2 ml UNSCH PRN IV FLUSH FLUSH AFTER USING IV ACCESS Last administered on 06/23/17 05:39; Start 05/30/17 at 21:45 Sodium Chloride (NS Flush) 2 ml BID IV FLUSH Last administered on 07/02/17 12 :32; Start 05/31/17 at 09:00 Naloxone HCl (Narcan Inj) 0.4 mg UNSCH PRN IV PUSH SEE LABEL COMMENTS; Start 05/30/17 at 21:45 Dextrose (D50w (Vial) Inj) 50 ml UNSCH PRN IV PUSH HYPOGLYCEMIA-SEE COMMENTS; Start 05/30/17 at 21:45; Stop 06/14/17 at 13:58; Status DC Glucagon (Glucagon Inj) 1 mg UNSCH PRN OTHER HYPOGLYCEMIA-SEE COMMENTS; Start 05/30/17 at 21:45; Stop 06/14/17 at 13:58; Status DC Insulin Aspart (NovoLOG SUPPLEMENTAL SCALE) 1 ACHS SLIDING SCALE SQ Last administered on 05/31/17 20:50; Start 05/31/17 at 08:00; Stop 06/01/17 at 07 :00; Status DC Influenza Virus Vaccine (Flu (Quadrivalent) Vaccine Inj) 0.5 ml ONCE ONCE IM ; Start 06/01/17 at 10:00; Stop 06/01/17 at 10:01; Status DC Albuterol/ Ipratropium (Duoneb Neb) 1 ampule Q6HR NEB NEB Last administered on 05/31/17 10:13; Start 05/31/17 at 04:00; Stop 05/31/17 at 12:58; Status DC Albuterol/ Ipratropium (Duoneb Neb) 1 ampule Q2HR NEB PRN NEB wheezing Last administered on 06/06/17 07:32; Start 05/31/17 at 03:15; Stop 06/12/17 at 08: 51; Status DC Sodium Chloride 1,000 ml @ 70 mls/hr [id number] IV ; Start 05/31/17 at 10:15; Stop 05/31/17 at 16:47; Status DC Furosemide (Lasix Inj) 40 mg ONCE ONCE IV PUSH Last administered on 11:28; Start 05/31/17 at 10:15; Stop 05/31/17 at 10:56; Status DC Methylprednisolone Sodium Succinate (SoluMEDROL INJ) 125 mg ONCE ONCE IV PUSH Last administered on 05/31/17 11:28; Start 05/31/17 at 10:15; Stop 05/31/17 at 10:56; Status DC Methylprednisolone Sodium Succinate (SoluMEDROL INJ) 60 mg Q12HR IV PUSH Last administered on 05/31/17 20:24; Start 05/31/17 at 21:00; Stop 06/01/17 at 07 :03; Status DC Atorvastatin Calcium (Lipitor) 80 mg HS PO Last administered on 07/01/17 21: 03; Start 05/31/17 at 21:00; Status Future hold Albuterol/ Ipratropium (Duoneb Neb) 1 ampule Q6HR WHILE AWAKE NEB NEB Last administered on 05/31/17 20:39; Start 05/31/17 at 14:00; Stop 06/01/17 at 07 :08; Status DC Ondansetron HCl (Zofran Inj) 4 mg Q6HR PRN IV PUSH NAUSEA OR VOMITING Last administered on 06/29/17 19:53; Start 05/31/17 at 13:00 Heparin Sodium (Porcine) (Heparin Inj) 5,000 units Q8HR SQ Last administered on 06/08/17 13:17; Start 05/31/17 at 16:00; Stop 06/08/17 at 13:57; Status DC Sodium Bicarbonate 75 meq/Sodium Chloride 1,075 ml @ 70 mls/hr [id number] IV Last administered on 06/02/17 03:04; Start 05/31/17 at 19:00; Stop 06/02/17 at 14:59; Status DC Etomidate (Amidate Inj) 20 mg ONCE ONCE IVP Last administered on 06/01/17 06 :23; Start 06/01/17 at 06:15; Stop 06/01/17 at 06:16; Status DC Albuterol/ Ipratropium (Duoneb Neb) 1 ampule Q15M INH ; Start 06/01/17 at 06:15 ; Stop 06/01/17 at 06:46; Status DC Sodium Chloride (NS Flush) 2 ml UNSCH PRN IVF FLUSH AFTER USING IV ACCESS; Start 06/01/17 at 06:15; Stop 06/01/17 at 06:15; Status DC Rocuronium Monarch (Zemuron Inj) 50 mg BOLUS ONCE IV Last administered on 06:15; Start 06/01/17 at 06:15; Stop 06/01/17 at 06:17; Status DC Propofol 100 ml @ 2.619 mls/ hr TITRATE PRN IV Ordered RASS Last administered on 06/03/17 22:43; Start 06/01/17 at 06:15; Stop 06/05/17 at 14:19; Status DC Insulin Aspart (NovoLOG SUPPLEMENTAL SCALE) 1 Q4H SQ ; Start 06/01/17 at 09:00 ; Stop 06/01/17 at 09:00; Status DC Sodium Bicarbonate (Sodium Bicarbonate 8.4% Inj) 100 meq ONCE ONCE IV PUSH Last administered on 06/01/17 07:14; Start 06/01/17 at 07:00; Stop 06/01/17 at 07:03; Status DC Insulin Human Regular (NovoLIN R INJ) 10 units ONCE ONCE IV PUSH Last administered on 06/01/17 07:15; Start 06/01/17 at 07:00; Stop 06/01/17 at 07 :03; Status DC Dextrose (D50w (Vial) Inj) 50 ml ONCE ONCE IV PUSH Last administered on 07:17; Start 06/01/17 at 07:00; Stop 06/01/17 at 07:06; Status DC Sodium Polystyrene Sulfonate (Kayexalate Liq) 30 gm ONCE ONCE PO Last administered on 06/01/17 11:57; Start 06/01/17 at 07:00; Stop 06/01/17 at 07 :04; Status DC Calcium Gluconate 1 gm/Sodium Chloride 110 ml @ 110 mls/hr ONCE ONCE IV Last administered on 06/01/17 07:14; Start 06/01/17 at 07:00; Stop 06/01/17 at 07 :59; Status DC Albuterol/ Ipratropium (Duoneb Neb) 1 ampule Q4HR NEB NEB Last administered on 06/05/17 07:21; Start 06/01/17 at 08:00; Stop 06/05/17 at 07:59; Status DC Methylprednisolone Sodium Succinate (SoluMEDROL INJ) 60 mg Q6HR IV PUSH ; Start 06/01/17 at 07:15; Stop 06/01/17 at 07:17; Status DC Piperacillin Sod/ Tazobactam Sod 100 ml @ 200 mls/hr Q8H IV ; Start 06/01/17 at 07:15; Status UNV Piperacillin Sod/ Tazobactam Sod 50 ml @ 100 mls/hr Q8H IV Last administered on 06/04/17 01:11; Start 06/01/17 at 08:00; Stop 06/04/17 at 07:27; Status DC Methylprednisolone Sodium Succinate (SoluMEDROL INJ) 40 mg Q12HR IV PUSH Last administered on 06/04/17 20:41; Start 06/01/17 at 09:00; Stop 06/04/17 at 21 :00; Status DC Fentanyl Citrate 250 ml @ 5 mls/hr TITRATE PRN IV SEDATION Last administered on 06/05/17 03:42; Start 06/01/17 at 07:15; Stop 06/06/17 at 16:52; Status DC Pantoprazole Sodium (Protonix Inj) 40 mg Q24H IV PUSH Last administered on 11:58; Start 06/01/17 at 09:00; Stop 06/01/17 at 18:44; Status DC Dextrose (D50w (Vial) Inj) 50 ml UNSCH PRN IV PUSH HYPOGLYCEMIA-SEE COMMENTS; Start 06/01/17 at 07:15; Status UNV Glucagon (Glucagon Inj) 1 mg UNSCH PRN OTHER HYPOGLYCEMIA-SEE COMMENTS; Start 06/01/17 at 07:15; Status UNV Insulin Human Regular (NovoLIN R SUPPLEMENTAL SCALE) 1 Q4HR SQ Last administered on 06/05/17 08:11; Start 06/01/17 at 08:00; Stop 06/06/17 at 01 :32; Status DC Sodium Chloride 1,000 ml @ 0 mls/hr Q0M PRN OTHER For Prime & Rinse Back Last administered on 06/24/17 09:31; Start 06/01/17 at 09:07 Heparin Sodium (Porcine) (Heparin Inj) 8,000 units UNSCH PRN IV FLUSH WITH DIALYSIS; Start 06/01/17 at 09:15 Sodium Chloride 1,000 ml @ 200 mls/hr Q5H PRN IV WITH DIALYSIS Last administered on 06/16/17 14:53; Start 06/01/17 at 09:07 Sodium Chloride 1,000 ml @ 0 mls/hr Q0M PRN OTHER WITH DIALYSIS; Start at 09:07 Mannitol (Mannitol Inj) 12.5 gm UNSCH PRN IV WITH DIALYSIS Last administered on 06/02/17 08:06; Start 06/01/17 at 09:15 Albumin Human 100 ml @ 60 mls/hr UNSCH PRN IV WITH DIALYSIS Last administered on 07/01/17 12:18; Start 06/01/17 at 09:15 Sodium Chloride (NS Flush) 5 ml UNSCH PRN IV FLUSH WITH DIALYSIS Last administered on 06/24/17 09:31; Start 06/01/17 at 09:15 Heparin Sodium (Porcine) (Heparin Inj) UNSCH PRN .XX WITH DIALYSIS Last administered on 07/01/17 12:14; Start 06/01/17 at 09:15 Gentamicin Sulfate (Gentamicin (Dialysis) Inj) 20 mg UNSCH PRN OTHER WITH DIALYSIS Last administered on 07/01/17 12:13; Start 06/01/17 at 09:15 Ondansetron HCl (Zofran Inj) 4 mg UNSCH PRN IV PUSH WITH DIALYSIS; Start 06/01 at 09:15 Acetaminophen (Tylenol) 650 mg UNSCH PRN PO for headach, pain, temp > 89F; Start 06/01/17 at 09:15; Stop 06/12/17 at 09:11; Status DC Diphenhydramine HCl (Benadryl) 25 mg UNSCH PRN PO for hives/itching/anaphylaxis ; Start 06/01/17 at 09:15 Nitroglycerin (Nitrostat Sl) 0.4 mg UNSCH PRN SL CHEST PAIN; Start 06/01/17 at 09:15 Clonidine (Catapres) 0.1 mg UNSCH PRN PO for BP > 180/100 X 2 readings Last administered on 06/22/17 02:28; Start 06/01/17 at 09:15 Epoetin Lorena (Epogen Inj) 6,000 units UNSCH PRN IV PUSH WITH DIALYSIS Last administered on 06/07/17 15:12; Start 06/01/17 at 09:15; Stop 06/07/17 at 21: 30; Status DC Gelatin (Gelfoam 12 Mm/7 Mm Top) 1 foam UNSCH PRN TOP SEE LABEL COMMENTS; Start 06/01/17 at 09:15 Sodium Chloride (NS Flush) UNSCH PRN IV FLUSH SEE PROTOCOL; Start 06/01/17 at 09:30 Heparin Sodium (Porcine) (Heparin Inj) UNSCH PRN IV FLUSH SEE PROTOCOL; Start 06/01/17 at 09:30; Stop 06/15/17 at 06:38; Status DC Chlorhexidine Gluconate (Peridex 0.12% Liq) 15 ml BID@08,20 MT Last administered on 06/14/17 20:47; Start 06/01/17 at 20:00; Stop 06/15/17 at 07: 31; Status DC Midazolam HCl (Versed Inj) 2 mg Q1H PRN IV PUSH SEDATION; Start 06/01/17 at 18 :30; Stop 06/06/17 at 16:52; Status DC Lorazepam (Ativan Inj) 1 mg Q1H PRN IV PUSH Agitation/Sedation; Start at 18:30; Stop 06/06/17 at 16:55; Status DC Miscellaneous Information 1 [id number] Last administered on 06/01/17 18:30; Start 06/01/17 at 18:30; Stop 06/27/17 at 22:31; Status DC Chlorhexidine Gluconate (Chlorhexidine 2% Cloth) Taper DAILY@04 TOP Last administered on 06/27/17 04:00; Start 06/02/17 at 04:00; Stop 06/27/17 at 22 :31; Status DC Chlorhexidine Gluconate (Chlorhexidine 2% Cloth) 3 pack UNSCH PRN TOP HYGIENIC CARE; Start 06/01/17 at 18:30; Stop 06/27/17 at 22:31; Status DC Famotidine (Pepcid Inj) 20 mg Q12HR IV PUSH Last administered on 06/01/17 20: 02; Start 06/01/17 at 21:00; Stop 06/02/17 at 14:03; Status DC Senna/Docusate Sodium (Stephenie-Colace) 1 tab BID PO Last administered on 09:08; Start 06/01/17 at 21:00; Stop 06/19/17 at 13:57; Status DC Magnesium Hydroxide (Milk Of Magnesia Liq) 30 ml Q12H PRN PO Mild constipation ; Start 06/01/17 at 18:30; Stop 06/08/17 at 13:57; Status DC Sennosides (Senokot) 17.2 mg Q12H PRN PO Moderate constipation; Start at 18:30 Bisacodyl (Dulcolax Supp) 10 mg DAILY PRN RECTAL SEVERE CONSITIPATION; Start 06/01/17 at 18:30 Lactulose (Lactulose Liq) 30 ml DAILY PRN PO SEVERE CONSITIPATION; Start 06/01 at 18:30; Stop 06/08/17 at 13:57; Status DC Calcium Chloride 1 gm/Sodium Chloride 110 ml @ 110 mls/hr STAT ONCE IV Last administered on 06/02/17 03:01; Start 06/02/17 at 02:30; Stop 06/02/17 at 03 :29; Status DC Amiodarone HCl 150 mg/Dextrose 103 ml @ 600 mls/hr Q11M ONCE IV Last administered on 06/02/17 03:02; Start 06/02/17 at 02:20; Stop 06/02/17 at 02 :39; Status DC Amiodarone HCl 900 mg/Dextrose 500 ml @ 33.33 mls/ hr Q15H1M PRN IV Per Protocol; Start 06/02/17 at 02:30; Status UNV Diltiazem HCl (Cardizem Inj) 20 mg STAT ONCE IV Last administered on 03:00; Start 06/02/17 at 02:30; Stop 06/02/17 at 02:39; Status DC Amiodarone HCl 450 mg/Dextrose 250 ml @ 33.33 mls/ hr TITRATE PRN IV Per Protocol Last administered on 06/03/17 09:26; Start 06/02/17 at 02:45; Stop 06/04/17 at 02:21; Status DC Famotidine (Pepcid Inj) 10 mg Q12HR IV PUSH Last administered on 06/11/17 20: 40; Start 06/02/17 at 21:00; Stop 06/12/17 at 08:59; Status DC Insulin Detemir (Levemir Inj) 5 units Q12HR SQ Last administered on 06/03/17 20:54; Start 06/03/17 at 09:00; Stop 06/04/17 at 05:29; Status DC Amiodarone HCl (Cordarone) 200 mg Q12HR PO Last administered on 06/04/17 20: 40; Start 06/04/17 at 09:00; Stop 06/04/17 at 21:00; Status DC Insulin Detemir (Levemir Inj) 10 units Q12HR SQ Last administered on 06/10/17 21:01; Start 06/04/17 at 09:00; Stop 06/11/17 at 08:26; Status DC Dexmedetomidine HCl 200 mcg/ Sodium Chloride 52 ml @ 4.92 mls/hr TITRATE PRN IV SEDATION Last administered on 06/05/17 13:37; Start 06/04/17 at 07:15; Stop 06/05/17 at 14:19; Status DC Alprazolam (Xanax) 0.25 mg Q8H PRN PO MILD ANXIETY Last administered on 20:04; Start 06/04/17 at 07:15; Stop 06/06/17 at 12:30; Status DC Ceftriaxone Sodium 1000 mg/ Sodium Chloride 100 ml @ 200 mls/hr Q12H IV Last administered on 06/12/17 20:01; Start 06/04/17 at 08:00; Stop 06/13/17 at 07: 15; Status DC Albuterol/ Ipratropium (Duoneb Neb) 1 ampule Q6HR NEB NEB Last administered on 06/09/17 15:54; Start 06/05/17 at 16:00; Stop 06/09/17 at 15:59; Status DC Diltiazem HCl (Cardizem Inj) 10 mg ONCE ONCE IV Last administered on 22:24; Start 06/05/17 at 22:15; Stop 06/05/17 at 22:16; Status DC Dexmedetomidine HCl 200 mcg/ Sodium Chloride 52 ml @ 4.69 mls/hr TITRATE PRN IV SEDATION Last administered on 06/06/17 03:36; Start 06/05/17 at 22:45; Stop 06/06/17 at 16:52; Status DC Dexmedetomidine HCl (Precedex Inj) 200 mcg STK-MED ONCE .ROUTE Last administered on 06/05/17 22:37; Start 06/05/17 at 22:33; Stop 06/05/17 at 22 :34; Status DC Diltiazem HCl (Cardizem Inj) 10 mg ONCE ONCE IV Last administered on 23:05; Start 06/05/17 at 23:00; Stop 06/05/17 at 23:01; Status DC Diltiazem HCl (Cardizem Inj) 10 mg NOW IV ; Start 06/05/17 at 22:50; Stop at 23:56; Status DC Insulin Human Regular (NovoLIN R SUPPLEMENTAL SCALE) 1 Q4H SQ Last administered on 06/08/17 16:32; Start 06/06/17 at 04:00; Stop 06/08/17 at 19: 30; Status DC Alprazolam (Xanax) 0.5 mg Q8H PRN PO MILD ANXIETY Last administered on 21:04; Start 06/06/17 at 13:00 Methylprednisolone Sodium Succinate (SoluMEDROL INJ) 40 mg Q8HR IV PUSH Last administered on 06/08/17 13:18; Start 06/06/17 at 22:00; Stop 06/08/17 at 13: 57; Status DC Methylprednisolone Sodium Succinate (SoluMEDROL INJ) 80 mg ONCE ONCE IV PUSH Last administered on 06/06/17 17:30; Start 06/06/17 at 16:45; Stop 06/06/17 at 17:19; Status DC Budesonide/ Formoterol Fumarate (Symbicort 160-4.5 Inh) 2 puff Q12HR INH Last administered on 06/11/17 20:39; Start 06/06/17 at 21:00; Stop 06/17/17 at 06: 28; Status DC Tiotropium Monarch (Spiriva Inh) 18 mcg DAILY INH Last administered on 08:27; Start 06/07/17 at 09:00; Stop 06/12/17 at 09:00; Status DC Lorazepam (Ativan Inj) 0.5 mg Q2H PRN IV PUSH Agitation/Sedation Last administered on 06/08/17 23:50; Start 06/06/17 at 17:00; Stop 06/11/17 at 16: 59; Status DC Diltiazem HCl (Cardizem Cd) 120 mg DAILY PO Last administered on 06/09/17 11: 41; Start 06/06/17 at 17:00; Stop 06/10/17 at 08:30; Status DC Epoetin Lorena (Epogen Inj) 10,000 units UNSCH PRN IV PUSH WITH DIALYSIS Last administered on 07/01/17 12:15; Start 06/07/17 at 21:30 Vitamin B Complex/ Vit C/Folic Acid (Nephrocaps) 1 cap DAILY PO Last administered on 07/02/17 09:40; Start 06/08/17 at 09:00 Calcium Acetate (Phoslo) 1,334 mg TID PO Last administered on 07/02/17 12:29 ; Start 06/08/17 at 09:00 Ferrous Sulfate (Ferrous Sulfate) 325 mg DAILY PO Last administered on 09:41; Start 06/09/17 at 09:00 Heparin Sodium (Porcine) (Heparin Inj) 5,000 units Q12HR SQ Last administered on 06/11/17 20:40; Start 06/08/17 at 21:00; Stop 06/12/17 at 09:00; Status DC Methylprednisolone Sodium Succinate (SoluMEDROL INJ) 40 mg Q12H IV PUSH Last administered on 06/19/17 23:17; Start 06/09/17 at 00:00; Stop 06/20/17 at 10: 34; Status DC Insulin Human Regular (NovoLIN R SUPPLEMENTAL SCALE) 1 ACHS SQ Last administered on 06/12/17 07:26; Start 06/08/17 at 21:00; Stop 06/12/17 at 08:53 ; Status DC Sodium Chloride (NS Flush) 2 ml UNSCH PRN IV FLUSH FLUSH AFTER USING IV ACCESS ; Start 06/09/17 at 13:30; Stop 06/15/17 at 08:43; Status DC Sodium Chloride (NS Flush) 2 ml BID IV FLUSH Last administered on 06/14/17 20: 37; Start 06/09/17 at 21:00; Stop 06/15/17 at 08:43; Status DC Diltiazem HCl (Cardizem Inj) 15 mg ONCE ONCE IV PUSH Last administered on 06/09 13:50; Start 06/09/17 at 13:30; Stop 06/09/17 at 13:31; Status DC Diltiazem HCl 125 mg/Sodium Chloride 125 ml @ 5 mls/hr TITRATE PRN IV Tachycardia; Start 06/09/17 at 13:30; Stop 06/10/17 at 10:00; Status DC Albuterol/ Ipratropium (Duoneb Neb) 1 ampule Q6HR WHILE AWAKE NEB NEB Last administered on 06/11/17 20:44; Start 06/09/17 at 20:00; Stop 06/12/17 at 08:51 ; Status DC Diltiazem HCl (Cardizem Cd) 240 mg DAILY PO Last administered on 06/11/17 08: 28; Start 06/10/17 at 09:00; Stop 06/12/17 at 09:00; Status DC Loperamide HCl (Imodium Liq) 2 mg Q4H PRN PO DIARRHEA Last administered on 20:35; Start 06/10/17 at 13:00 Insulin Human Regular (NovoLIN R INJ) 5 units ONCE ONCE SQ Last administered on 06/10/17 22:00; Start 06/10/17 at 22:00; Stop 06/10/17 at 22:01; Status DC Insulin Detemir (Levemir Inj) 16 units Q12HR SQ Last administered on 06/11/17 20:41; Start 06/11/17 at 09:00; Stop 06/12/17 at 08:54; Status DC Diltiazem HCl (Cardizem Inj) 15 mg ONCE ONCE IV Last administered on 02:45; Start 06/12/17 at 02:45; Stop 06/12/17 at 02:46; Status DC Diltiazem HCl (Cardizem Inj) 15 mg ONCE ONCE IV PUSH Last administered on 06/12 04:16; Start 06/12/17 at 04:15; Stop 06/12/17 at 04:16; Status DC Diltiazem HCl 125 mg/Sodium Chloride 125 ml @ 5 mls/hr TITRATE PRN IV Tachycardia Last administered on 06/12/17 04:18; Start 06/12/17 at 04:15; Stop 06/19/17 at 13:57; Status DC Lorazepam (Ativan Inj) 1 mg ONCE ONCE IV PUSH Last administered on 06/12/17 04:17; Start 06/12/17 at 04:15; Stop 06/12/17 at 04:16; Status DC Furosemide (Lasix Inj) 40 mg ONCE ONCE IV PUSH Last administered on 06/12/17 05:22; Start 06/12/17 at 05:00; Stop 06/12/17 at 05:09; Status DC Chlorhexidine Gluconate (Peridex 0.12% Liq) 15 ml BID@08,20 MT Last administered on 06/16/17 08:11; Start 06/12/17 at 08:00; Stop 06/19/17 at 13: 57; Status DC Propofol 100 ml @ 2.511 mls/ hr TITRATE PRN IV SEDATION Last administered on 06/16/17 01:20; Start 06/12/17 at 08:00; Stop 06/19/17 at 13:57; Status DC Fentanyl Citrate 250 ml @ 5 mls/hr TITRATE PRN IV SEDATION Last administered on 06/12/17 07:45; Start 06/12/17 at 08:00; Stop 06/17/17 at 06:29; Status DC Phenylephrine HCl 160 mg/Dextrose 500 ml @ 7.5 mls/hr TITRATE PRN IV Blood pressure management; Start 06/12/17 at 08:00; Stop 06/17/17 at 06:29; Status DC Terbutaline Sulfate (Brethine Inj) 1 mg UNSCH PRN SQ For Extravasation; Start 06/12/17 at 08:00 Etomidate (Amidate Inj) 40 mg ONCE ONCE IV PUSH ; Start 06/12/17 at 08:00; Stop 06/12/17 at 08:01; Status DC Rocuronium Monarch (Zemuron Inj) 100 mg BOLUS ONCE IV Last administered on 12:12; Start 06/12/17 at 08:00; Stop 06/12/17 at 08:01; Status DC Midazolam HCl (Versed Inj) 5 mg STK-MED ONCE .ROUTE Last administered on 12:13; Start 06/12/17 at 08:12; Stop 06/12/17 at 08:13; Status DC Etomidate (Amidate Inj) 40 mg ONCE ONCE IV PUSH ; Start 06/12/17 at 08:30; Stop 06/12/17 at 08:31; Status DC Sodium Chloride (NS Flush) DAILY IV FLUSH Last administered on 06/29/17 07: 55; Start 06/12/17 at 09:00 Sodium Chloride (NS Flush) UNSCH PRN IV FLUSH SEE PROTOCOL; Start 06/12/17 at 08:45 Albuterol/ Ipratropium (Duoneb Neb) 1 ampule QID NEB NEB Last administered on 06/15/17 11:10; Start 06/12/17 at 12:00; Stop 06/15/17 at 16:27; Status DC Albuterol Sulfate (Albuterol Neb) 2.5 mg Q2HR NEB PRN NEB dyspnea Last administered on 06/19/17 04:13; Start 06/12/17 at 09:00; Stop 06/19/17 at 13: 12; Status DC Dextrose (D50w (Vial) Inj) 50 ml UNSCH PRN IV PUSH HYPOGLYCEMIA-SEE COMMENTS; Start 06/12/17 at 09:00; Stop 06/20/17 at 16:58; Status DC Glucagon (Glucagon Inj) 1 mg UNSCH PRN OTHER HYPOGLYCEMIA-SEE COMMENTS; Start 06/12/17 at 09:00; Stop 06/20/17 at 16:58; Status DC Insulin Human Regular (NovoLIN R SUPPLEMENTAL SCALE) 1 Q4HR SQ Last administered on 06/18/17 04:05; Start 06/12/17 at 12:00; Stop 06/18/17 at 07: 14; Status DC Insulin Detemir (Levemir Inj) 10 units Q12HR SQ Last administered on 06/12/17 20:17; Start 06/12/17 at 09:00; Stop 06/13/17 at 07:08; Status DC Protein (Beneprotein Powder) 1 pack TID G-TUBE Last administered on 06/16/17 17:11; Start 06/12/17 at 09:00; Stop 06/17/17 at 06:29; Status DC Artificial Tears (Tears Naturale Opth Soln) 1 drop Q8HR EACH EYE Last administered on 06/17/17 05:53; Start 06/12/17 at 14:00; Stop 06/17/17 at 06: 29; Status DC Famotidine (Pepcid) 20 mg DAILY NG Last administered on 06/14/17 11:58; Start 06/12/17 at 09:45; Stop 06/15/17 at 06:39; Status DC Diltiazem HCl (Cardizem) 60 mg Q6HR PO Last administered on 06/14/17 11:58; Start 06/12/17 at 12:00; Stop 06/14/17 at 13:32; Status DC Heparin Sodium/ Dextrose 250 ml @ 15.066 mls/ hr TITRATE PRN IV Coagulation Management Last administered on 06/12/17 14:13; Start 06/12/17 at 09:00; Stop 06/13/17 at 10:31; Status DC Acetaminophen (Tylenol 650 Mg/ 20 ml Liq) 650 mg Q6H PRN [id number] fever; Start 06/12/17 at 09:00; Stop 06/17/17 at 06:30; Status DC Budesonide (Pulmicort Respule Neb) 0.5 mg Q12HR NEB NEB Last administered on 06/16/17 19:40; Start 06/12/17 at 20:00; Stop 06/17/17 at 06:28; Status DC Piperacillin Sod/ Tazobactam Sod 50 ml @ 100 mls/hr Q8H IV Last administered on 06/19/17 12:03; Start 06/12/17 at 12:00; Stop 06/19/17 at 13:59; Status DC Pharmacy Profile Note 0 ml @ 0 mls/hr UNSCH OTHER ; Start 06/12/17 at 09:15; Status UNV Insulin Detemir (Levemir Inj) 25 units Q12HR SQ Last administered on 06/14/17 20:44; Start 06/13/17 at 09:00; Stop 06/15/17 at 06:35; Status DC Norepinephrine Bitartrate 4 mg/ Sodium Chloride 250 ml @ 7.5 mls/hr TITRATE PRN IV Blood pressure management; Start 06/13/17 at 07:15; Stop 06/17/17 at 06: 29; Status DC Polyethylene Glycol (Miralax) 17 gm BID PO Last administered on 06/13/17 09:07 ; Start 06/13/17 at 09:00; Stop 06/17/17 at 06:29; Status DC Lactulose (Lactulose Liq) 30 ml DAILY PO Last administered on 06/13/17 09:07; Start 06/13/17 at 09:00; Stop 06/17/17 at 06:29; Status DC Glycerin (Glycerin Adult Supp) 2 gm BID PRN RECTAL CONSTIPATION; Start at 07:30 Heparin Sodium/ Dextrose 250 ml @ 18 mls/hr TITRATE PRN IV Coagulation Management; Start 06/13/17 at 10:45; Stop 06/13/17 at 11:44; Status DC Heparin Sodium/ Dextrose 250 ml @ 18 mls/hr TITRATE PRN IV Coagulation Management Last administered on 06/13/17 14:43; Start 06/13/17 at 11:45; Stop 06/15/17 at 06:38; Status DC Fluconazole (Diflucan 10 Mg/ ml Liq) 100 mg DAILY PO Last administered on 06/17 09:59; Start 06/14/17 at 09:00; Stop 06/18/17 at 07:14; Status DC Diltiazem HCl (Cardizem Inj) 20 mg ONCE ONCE IV Last administered on 13:30; Start 06/14/17 at 13:30; Stop 06/14/17 at 13:57; Status DC Digoxin (Lanoxin Inj) 0.25 mg ONCE ONCE IV PUSH Last administered on 14:19; Start 06/14/17 at 13:30; Stop 06/14/17 at 13:57; Status DC Diltiazem HCl (Cardizem) 30 mg Q6HR NG Last administered on 06/15/17 11:48; Start 06/14/17 at 18:00; Stop 06/15/17 at 12:41; Status DC Insulin Detemir (Levemir Inj) 40 units Q12HR SQ Last administered on 06/15/17 19:53; Start 06/15/17 at 09:00; Stop 06/18/17 at 07:16; Status DC Pantoprazole Sodium (Protonix Inj) 40 mg Q12H IV PUSH ; Start 06/15/17 at 06:45 ; Stop 06/15/17 at 07:31; Status DC Sodium Chloride 1,000 ml @ 42 mls/hr [id number] IV Last administered on 08:10; Start 06/15/17 at 06:45; Stop 06/17/17 at 06:29; Status DC Pantoprazole Sodium (Protonix Inj) 40 mg Q12HR IV PUSH Last administered on 08:34; Start 06/15/17 at 09:00; Stop 06/19/17 at 13:59; Status DC Diltiazem HCl (Cardizem) 30 mg Q6HR NG Last administered on 06/19/17 12:03; Start 06/15/17 at 18:00; Stop 06/19/17 at 14:06; Status DC Albuterol/ Ipratropium (Duoneb Neb) 1 ampule QID NEB NEB Last administered on 06/19/17 11:05; Start 06/15/17 at 20:00; Stop 06/19/17 at 13:12; Status DC Protein (Beneprotein Powder) 1 pack TID G-TUBE ; Start 06/16/17 at 09:00; Stop 06/16/17 at 09:05; Status DC Insulin Detemir (Levemir Inj) 10 units Q12HR SQ Last administered on 19:57; Start 06/16/17 at 09:00; Stop 06/18/17 at 07:14; Status DC Budesonide/ Formoterol Fumarate (Symbicort 160-4.5 Inh) 2 puff Q12HR INH Last administered on 07/01/17 21:00; Start 06/17/17 at 09:00 Acetaminophen (Tylenol 650 Mg/ 20 ml Liq) 650 mg Q6H PRN PO fever; Start 06/17 at 06:30 Acetaminophen/ Hydrocodone Bitart (Moore 5-325 Mg) 1 tab Q6H PRN PO pain 1-5; Start 06/17/17 at 06:30 Morphine Sulfate (Morphine Inj) 2 mg Q4H PRN IV PUSH pain 6-10; Start at 06:30 Insulin Human Regular (NovoLIN R SUPPLEMENTAL SCALE) 1 ACHS AND 3AM SQ Last administered on 06/20/17 09:19; Start 06/18/17 at 08:00; Stop 06/20/17 at 16 :52; Status DC Insulin Detemir (Levemir Inj) 25 units Q12HR SQ Last administered on 09:42; Start 06/18/17 at 09:00; Status Future hold Polyethylene Glycol/ Electrolytes (Colyte Liq) 4,000 ml ONCE ONCE PO Last administered on 06/18/17 15:29; Start 06/18/17 at 10:00; Stop 06/18/17 at 10 :01; Status DC Bisacodyl (Dulcolax Ec) 20 mg ONCE ONCE PO Last administered on 06/18/17 15: 29; Start 06/18/17 at 10:00; Stop 06/18/17 at 10:01; Status DC Lactated Ringer's 1,000 ml @ 30 mls/hr Q24H PRN IV SEE LABEL COMMENTS; Start 06/18/17 at 18:45; Stop 06/21/17 at 18:44; Status DC Sodium Chloride 500 ml @ 30 mls/hr [id number] PRN IV SEE LABEL COMMENTS; Start at 18:45; Stop 06/21/17 at 18:44; Status DC Metoprolol Tartrate (Lopressor) 25 mg STOCK DRIER TENDER PRN PO SEE LABEL COMMENTS; Start 06/18/17 at 18:45; Stop 06/21/17 at 18:44; Status DC Povidone Iodine (Betadine 5% Antisepsis Kit) 1 applic STOCK DRIER TENDER PRN EACH NARE SEE LABEL COMMENTS; Start 06/18/17 at 18:45; Stop 06/21/17 at 18:44; Status DC Chlorhexidine Gluconate (Chlorhexidine 2% Cloth) 3 pack STOCK DRIER TENDER PRN TOPICAL SEE LABEL COMMENTS; Start 06/18/17 at 18:45; Stop 06/20/17 at 12:15; Status DC Insulin Human Regular (NovoLIN R INJ) See Protocol Table ... STOCK DRIER TENDER PRN SQ SEE PROTOCOL TABLE; Start 06/18/17 at 18:45; Stop 06/21/17 at 18:44; Status DC Albuterol/ Ipratropium (Duoneb Neb) 1 ampule Q6HR WHILE AWAKE NEB NEB Last administered on 06/20/17 08:16; Start 06/19/17 at 14:00; Stop 06/20/17 at 10 :30; Status DC Albuterol/ Ipratropium (Duoneb Neb) 1 ampule Q2HR NEB PRN NEB SOB/WHEEZING Last administered on 06/20/17 10:49; Start 06/19/17 at 13:15; Stop 06/22/17 at 06:41; Status DC Pantoprazole Sodium (Protonix) 40 mg Q12HR PO Last administered on 06/28/17 11:47; Start 06/19/17 at 21:00; Stop 06/28/17 at 12:29; Status DC Diltiazem HCl (Cardizem Cd) 180 mg DAILY PO Last administered on 06/21/17 09: 14; Start 06/19/17 at 14:15; Stop 06/22/17 at 06:53; Status DC Lactated Ringer's 1,000 ml @ 30 mls/hr Q24H PRN IV SEE LABEL COMMENTS; Start 06/19/17 at 16:00; Stop 06/22/17 at 15:59; Status DC Sodium Chloride 500 ml @ 30 mls/hr [id number] PRN IV SEE LABEL COMMENTS; Start at 16:00; Stop 06/22/17 at 15:59; Status DC Metoprolol Tartrate (Lopressor) 25 mg STOCK DRIER TENDER PRN PO SEE LABEL COMMENTS; Start 06/19/17 at 16:00; Stop 06/22/17 at 15:59; Status DC Povidone Iodine (Betadine 5% Antisepsis Kit) 1 applic STOCK DRIER TENDER PRN EACH NARE SEE LABEL COMMENTS; Start 06/19/17 at 16:00; Stop 06/22/17 at 15:59; Status DC Chlorhexidine Gluconate (Chlorhexidine 2% Cloth) 3 pack STOCK DRIER TENDER PRN TOPICAL SEE LABEL COMMENTS; Start 06/19/17 at 16:00; Stop 06/22/17 at 15:59; Status DC Insulin Human Regular (NovoLIN R INJ) See Protocol Table ... STOCK DRIER TENDER PRN SQ SEE PROTOCOL TABLE; Start 06/19/17 at 16:00; Stop 06/22/17 at 15:59; Status DC Cefazolin Sodium/ Dextrose 50 ml @ 100 mls/hr STOCK DRIER TENDER IV Last administered on 06/20/17 09:16; Start 06/19/17 at 16:30; Stop 06/22/17 at 10:55; Status DC Vancomycin HCl 1000 mg/Sodium Chloride 250 ml @ 250 mls/hr STOCK DRIER TENDER IV Last administered on 06/20/17 09:16; Start 06/19/17 at 16:30; Stop 06/22/17 at 10 :55; Status DC Propofol (Diprivan 200 Mg/20 ml Inj) 200 mg STK-MED ONCE IV ; Start 06/19/17 at 16:47; Stop 06/19/17 at 16:48; Status DC Albuterol/ Ipratropium (Duoneb Neb) 1 ampule Q4HR NEB NEB Last administered on 06/24/17 11:25; Start 06/20/17 at 12:00; Stop 06/24/17 at 11:59; Status DC Methylprednisolone Sodium Succinate (SoluMEDROL INJ) 60 mg Q6H IV PUSH Last administered on 06/22/17 05:06; Start 06/20/17 at 11:00; Stop 06/22/17 at 06 :53; Status DC Lorazepam (Ativan Inj) 0.5 mg Q4H PRN IV PUSH anxiety Last administered on 14:24; Start 06/20/17 at 11:45; Stop 06/24/17 at 12:05; Status DC Alteplase, Recombinant (Cathflo Activase Inj) 2 mg ONCE ONCE INTRACATH ; Start 06/20/17 at 13:00; Stop 06/20/17 at 18:31; Status DC Dextrose (D50w (Vial) Inj) 50 ml UNSCH PRN IV PUSH HYPOGLYCEMIA-SEE COMMENTS; Start 06/20/17 at 17:00 Glucagon (Glucagon Inj) 1 mg UNSCH PRN OTHER HYPOGLYCEMIA-SEE COMMENTS; Start 06/20/17 at 17:00 Insulin Human Regular (NovoLIN R SUPPLEMENTAL SCALE) 1 Q6H SQ ; Start 06/20/17 at 17:00; Stop 06/20/17 at 17:00; Status DC Insulin Human Regular (NovoLIN R SUPPLEMENTAL SCALE) 1 Q6HR SQ Last administered on 06/22/17 05:57; Start 06/20/17 at 18:00; Stop 06/22/17 at 06 :53; Status DC Hydralazine HCl (Apresoline) 50 mg Q8HR PO Last administered on 06/22/17 05: 57; Start 06/21/17 at 16:45; Stop 06/22/17 at 06:44; Status DC Albuterol Sulfate (Albuterol Neb) 2.5 mg Q2HR NEB PRN NEB dyspnea Last administered on 06/27/17 19:52; Start 06/22/17 at 06:45 Hydralazine HCl (Apresoline) 100 mg Q8HR PO Last administered on 06/24/17 05: 29; Start 06/22/17 at 14:00; Status Future Hold Diltiazem HCl (Cardizem Cd) 240 mg DAILY PO Last administered on 06/28/17 11: 47; Start 06/22/17 at 09:00; Stop 06/29/17 at 07:36; Status DC Insulin Human Regular (NovoLIN R SUPPLEMENTAL SCALE) 1 ACHS SQ Last administered on 06/27/17 08:00; Start 06/22/17 at 08:00; Stop 06/28/17 at 09 :50; Status DC Methylprednisolone Sodium Succinate (SoluMEDROL INJ) 40 mg Q8HR IV PUSH Last administered on 06/27/17 13:33; Start 06/22/17 at 14:00; Stop 06/28/17 at 00 :32; Status DC Isosorbide Mononitrate (Imdur) 30 mg DAILY@07 PO Last administered on 05:57; Start 06/22/17 at 07:00 Labetalol HCl (Trandate Inj) 10 mg Q1HR PRN IV PUSH SBP>165, DBP>80, HR>65; Start 06/22/17 at 06:45 Nitroglycerin (Nitroglycerin 2% Oint) 2 inch Q6HR PRN TOPICAL SBP>160, DBP>90; Start 06/22/17 at 06:45 Hydralazine HCl (Apresoline Inj) 10 mg Q30M PRN IV PUSH SBP>160, DBP>90; Start 06/22/17 at 06:45 Vancomycin HCl 1000 mg/Sodium Chloride 250 ml @ 250 mls/hr STOCK DRIER TENDER IV Last administered on 06/22/17 16:12; Start 06/22/17 at 10:45; Stop 06/26/17 at 10 :44; Status DC Cefazolin Sodium/ Dextrose 50 ml @ 100 mls/hr STOCK DRIER TENDER IV Last administered on 06/22/17 16:12; Start 06/22/17 at 10:45; Stop 06/26/17 at 10:44; Status DC Diltiazem HCl (Cardizem Inj) 10 mg ONCE ONCE IV Last administered on 11:48; Start 06/22/17 at 11:45; Stop 06/22/17 at 11:46; Status DC Diltiazem HCl 125 mg/Sodium Chloride 125 ml @ 5 mls/hr TITRATE PRN IV Tachycardia Last administered on 06/22/17 22:33; Start 06/22/17 at 12:00; Stop 06/23/17 at 14:28; Status DC Sodium Chloride (NS Flush) UNSCH PRN IV FLUSH SEE PROTOCOL; Start 06/22/17 at 15:45 Heparin Sodium (Porcine) (Heparin Inj) UNSCH PRN IV FLUSH SEE PROTOCOL; Start 06/22/17 at 15:45 Fentanyl Citrate (fentaNYL INJ) 50 mcg STK-MED ONCE IV PUSH Last administered on 06/22/17 15:05; Start 06/22/17 at 16:13; Stop 06/22/17 at 16:14; Status DC Midazolam HCl (Versed Inj) 1 mg STK-MED ONCE IV PUSH Last administered on 06/22 15:05; Start 06/22/17 at 16:15; Stop 06/22/17 at 16:16; Status DC Metoprolol Tartrate (Lopressor Inj) 5 mg ONCE ONCE IV PUSH Last administered on 06/22/17 16:45; Start 06/22/17 at 16:45; Stop 06/22/17 at 16:57; Status DC Digoxin (Lanoxin Inj) 0.25 mg ONCE ONCE IV PUSH Last administered on 17:00; Start 06/22/17 at 16:45; Stop 06/22/17 at 16:57; Status DC Metoprolol Tartrate (Lopressor) 12.5 mg Q8HR PO Last administered on 05:47; Start 06/22/17 at 17:30; Stop 06/29/17 at 07:36; Status DC Miscellaneous (Pill Splitter) 1 ea UNSCH PRN OTHER SEE LABEL COMMENTS Last administered on 06/23/17 14:16; Start 06/22/17 at 18:00 Propofol (Diprivan 200 Mg/20 ml Inj) 110 mg STK-MED ONCE IV ; Start 06/23/17 at 09:16; Stop 06/23/17 at 09:17; Status DC Sodium Chloride (NS 500 ml Inj) 25 ml STK-MED ONCE IV ; Start 06/23/17 at 09:16 ; Stop 06/23/17 at 09:17; Status DC Lorazepam (Ativan) 0.5 mg Q8H PRN PO anxiety; Start 06/24/17 at 12:15 Sodium Chloride 250 ml @ 15 mls/hr ONCE ONCE IV Last administered on 08:51; Start 06/27/17 at 05:30; Stop 06/27/17 at 22:09; Status DC Sodium Chloride 250 ml @ 15 mls/hr ONCE ONCE IV Last administered on 14:45; Start 06/27/17 at 14:45; Stop 06/28/17 at 07:24; Status DC Acetaminophen (Tylenol) 650 mg Q4H PRN PO SEE LABEL COMMENTS; Start 06/27/17 at 18:00 Diphenhydramine HCl (Benadryl) 25 mg Q4H PRN PO SEE LABEL COMMENTS; Start at 18:00 Polyethylene Glycol/ Electrolytes (Colyte Liq) 4,000 ml ONCE ONCE PO Last administered on 06/28/17 02:56; Start 06/27/17 at 19:00; Stop 06/27/17 at 19 :01; Status DC Miscellaneous Information Patient in critical care unit? Ass... [id number] .XX ; Start 06/27/17 at 22:45 Chlorhexidine Gluconate (Chlorhexidine 2% Cloth) 3 pack DAILY@04 TOPICAL Last administered on 07/01/17 04:00; Start 06/28/17 at 04:00; Stop 07/02/17 at 04 :01; Status DC Chlorhexidine Gluconate (Chlorhexidine 2% Cloth) 3 pack UNSCH PRN TOPICAL HYGIENIC CARE; Start 06/27/17 at 22:45; Stop 07/02/17 at 22:31 Phytonadione (Mephyton Liq) 10 mg DAILY PO Last administered on 06/29/17 07: 54; Start 06/28/17 at 00:30; Stop 06/29/17 at 09:01; Status DC Sodium Chloride 250 ml @ 15 mls/hr ONCE ONCE IV Last administered on 00:30; Start 06/28/17 at 00:30; Stop 06/28/17 at 17:09; Status DC Methylprednisolone Sodium Succinate (SoluMEDROL INJ) 40 mg Q12H IV PUSH Last administered on 07/02/17 09:41; Start 06/28/17 at 10:00 Acetaminophen/ Hydrocodone Bitart (Moore 5-325 Mg) 2 tab Q6H PRN PO PAIN 6-10 Last administered on 07/01/17 00:07; Start 06/28/17 at 08:15 Insulin Human Regular (NovoLIN R SUPPLEMENTAL SCALE) 1 Q6HR SQ Last administered on 07/02/17 12:31; Start 06/28/17 at 12:00 Heparin Sodium (Porcine) (Heparin Central Flush) 500 units STK-MED ONCE IV FLUSH ; Start 06/28/17 at 11:59; Stop 06/28/17 at 12:00; Status DC Pantoprazole Sodium (Protonix Inj) 40 mg Q12HR IV PUSH Last administered on 09:41; Start 06/28/17 at 13:00 Propranolol HCl (Inderal) 10 mg Q8HR PO Last administered on 07/02/17 12:30; Start 06/28/17 at 14:00 Diltiazem HCl (Cardizem) 60 mg Q6H PO Last administered on 07/02/17 12:29; Start 06/29/17 at 08:00 Polyethylene Glycol/ Electrolytes (Colyte Liq) 4,000 ml ONCE ONCE PO Last administered on 06/29/17 17:42; Start 06/29/17 at 09:45; Stop 06/29/17 at 09 :46; Status DC Epinephrine HCl (EPINEPHrine (1:10,000) INJ) 0.5 mg ONCE ONCE OTHER Last administered on 06/30/17 09:58; Start 06/30/17 at 09:58; Stop 06/30/17 at 10 :02; Status DC Miscellaneous Information ALL NURSING DEPARTME... UNSCH PRN .XX SEE LABEL COMMENTS; Start 06/30/17 at 10:30; Stop 07/01/17 at 10:29; Status DC Date of Insertion: Jun 12, 2017 Line: Central Venous Catheter Side: Left Location: Internal, Jugular A/P Problem List: (1) Community acquired pneumonia ICD Code: J18.9 - Pneumonia, unspecified organism Status: Resolved (2) Anxiety ICD Code: F41.9 - Anxiety disorder, unspecified Status: Chronic (3) COPD exacerbation ICD Code: J44.1 - Chronic obstructive pulmonary disease with (acute) exacerbation Status: Acute (4) Paroxysmal atrial fibrillation ICD Code: I48.0 - Paroxysmal atrial fibrillation Status: Acute (5) Anemia ICD Code: D64.9 - Anemia, unspecified Status: Chronic (6) DM2 (diabetes mellitus, type 2) ICD Code: E11.9 - Type 2 diabetes mellitus without complications Status: Chronic (7) Atrial fibrillation with RVR ICD Code: I48.91 - Unspecified atrial fibrillation Status: Resolved (8) GI bleed ICD Code: K92.2 - Gastrointestinal hemorrhage, unspecified (9) Acute blood loss anemia ICD Code: D62 - Acute posthemorrhagic anemia Status: Acute (10) Thrombocytopenia ICD Code: D69.6 - Thrombocytopenia, unspecified Assessment and Plan Neuro/Psych: Anxiety disorder NOS Awake and alert Alprazolam 0.5 mg by mouth every 8hours as needed for anxiety/home medication for anxiety Acetaminophen 650 mg liquid every 6 hours when necessary for fever Acetaminophen/hydrocodone 5/325 one tablet every 6 hours as needed Pain 1-5. two tab prn pain 6-10 Pulm: Acute hypercapnic respiratory failure - resolved Acute COPD exacerbation - resolved Tobacco abuse --smoking cessation recommended Extubated 06/05/17. Reintubated 06/12. Extubated 06/16. Continue with oxygen keep sats> 90%. Incentive spirometry while awake Albuterol/ipratropium aerosols every 4 hours with albuterol aerosols every 2 hours On budesonide/formoterol 160 g/4.5 g 2 puffs inhaled twice a day On Solumederol 40 mg IV q12. Pulm following, Dr. Hammonds CV: Hypertension Hyperlipidemia Paroxysmal atrial fibrillation in RVR. Monitor HR and BP keep MAP>65mmHg Inderal 10mg Q8, Imdur 30mg daily, Cardizem 60mgQ6 Echo showed 50-55% normal LV. 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 Diabetic nephropathy R Permacath placed 06/22. Vascular surgery planning for AVF as outpatient. IHD M/W/F per Nephrology, Dr. Lee. s/p HD with 2L removal. on 06/28. For HD today Renal ultrasound 05/31 revealed medical renal disease left kidney/atrophy. Right kidney within normal limits On calcium acetate 1334 mg 3 times a day Hemodialysis per renal GI: Cecal ulcer with visible vessel status post clipping 2 06/19 Dr. Moseley Transverse/ascending colon ulcer Sigmoid diverticulosis Internal and external hemorrhoids Started on PO heart healthy diet s/p EGD 06/30: Esophagitis and Gastritis. s/p Colonoscopy 06/30: Severe diverticulosis was noted in the sigmoid colon, 3 x 5cm colitis was found in the transverse colon; The mucosa was erythematous, friable, ulcerated and oozing blood s/p EPi injection and ablated with APC. Internal/ External hemorrhoids On pantoprazole 40 mg po twice a day Bleeding scan 06/28: No active bleeding noted. GI is following. For repeat EGD/ colonoscopy today C diff negative. 2 06/19 s/p EGD, colonoscopy: gastritis, ulcer in cecum with visible vessel - clipped, , ascending and transverse colon ulcer, sigmoid diverticulosis, internal and external hemorrhoids. 06/23 EGD - Severe gastropathy, cauterized by Dr. Guerrero. ?cirrhosis. US Liver: Echogenic liver possibly fatty infiltration. Tiny amount of fluid adjacent to the liver. Small bilateral pleural effusions. Status post cholecystectomy Viral Hepatitis panel negative 06/01 ID: Acute community acquired pneumonia (resolved) Asymptomatic candiduria Off abx, monitor for signs of infections. Follow up on BC. Wound care consult. Check UA US UE: No evidence for soft tissue abscess as questioned. Thrombosed left cephalic vein in the antecubital fossa and proximal forearm. 06/01 Sputum Kleb pneumonia, E.coli 06/11 Urine cx: C. Glabrata and Albicans Endo: Diabetes mellitus Resume Detemir 25 units subcut q12 hours Continue with SSI- medium scale with Accu-Cheks Q6h Heme: DVT L IJ Vein. Superficial thrombus left cephalic vein at the level of the antecubital fossa and proximal arm Anemia consistent with anemia of chronic kidney disease Thrombocytopenia Coagulopathy On iron sulfate 325 mg daily. Monitor CBC. Received 2 units PRBC, 1 unit platelets and 2u FFP 06/27. Monitor CBC, coags and fibrinogen-INR 1.0 and Fibrinogen level 198. s/p transfuse 1unit PRBC 06/29 HIT ab negative. Hematology following, Dr. Foster. Continue Epogen lorena 10,000 units with hemodialysis Not candidate for anticoagulation at this point for IJ thrombus due to active bleeding. Further anticoagulation per Heme GI prophylaxis with pantoprazole 40 mill grams po twice a day and DVT prophylaxis with SCDs and no pharmacological prophylaxis in light of cecal ulcer /GI bleed Lines: R IJ permacath 06/22 #7. Has a peripheral IV. Per Dr. Hurtado- Patient states that she is agreeable to intubation if needed for procedure or for recurrent respiratory failure. She states she would be okay with trach if needed. In the setting of cardiac arrest, she does not want CPR, shocks, ACLS drugs or intubation. Palliative care following. Discharge Planning Needs outpatient hemodialysis set up Will need physical therapy and occupational therapy and probably will need inpatient rehabilitation if she can be placed Keo Acevedo DO Jul 02, 2017 13:01
--- NOTE | 2017-07-02 15:35 | HHI.PR ---
Subjective Remarks 76 YOWF with VDRF,Ac renal Failure,DM, Met acidosis No Fever Alert awake feels weak, mild sob Breathing better Planning to move to [place] to be near her daughter. Objective Vital Signs Vital Signs Date Time Temp Pulse Resp B/P (MAP) Pulse Ox O2 Delivery O2 Flow Rate FiO2 07/02/17 12:00 93 2.00 07/02/17 12:00 96.4 76 17 153/67 (95) 95 07/02/17 08:00 97.0 65 19 123/65 (84) 95 07/02/17 06:26 93 Nasal Cannula 2.00 07/02/17 04:00 97.9 63 17 124/84 (97) 93 07/02/17 03:28 94 2.00 07/02/17 00:00 97.6 67 17 151/75 (100) 94 07/01/17 20:00 96.5 75 17 117/57 (77) 94 07/01/17 19:00 74 07/01/17 16:00 95.2 81 17 136/75 (95) 96 I/O 07/01/17 07/01/17 07/01/17 07/02/17 07/02/17 07/02/17 07:00 15:00 23:00 07:00 15:00 23:00 Intake Total 620 ml 740 ml 240 ml Output Total 0 ml 2300 ml Balance 620 ml -2300 ml 740 ml 240 ml Intake Oral 620 ml 740 ml 240 ml Output Urine Total 0 ml Hemodialysis 2300 ml # Voids 0 0 # Bowel Movements 1 0 Result Diagram: 07/02/17 0630 07/02/17 0630 Objective Remarks GENERAL: WBWN WF, On NC SKIN: Warm and dry. HEAD: Normocephalic. EYES: No scleral icterus. No injection or drainage. NECK: Supple, trachea midline. No JVD or lymphadenopathy. CARDIOVASCULAR: Regular rate and rhythm without murmurs, gallops, or rubs. RESPIRATORY: Breath sounds equal bilaterally. No accessory muscle use. GASTROINTESTINAL: Abdomen soft, non-tender, nondistended. MUSCULOSKELETAL: No cyanosis, or edema. BACK: Nontender without obvious deformity. No CVA tenderness. A/P Assessment and Plan VDRF, s/p Extubation COPD Ac renal Failure DM Nicotine use AF with RVR, converted to NSR PLAN: Supplement 02, keep sat 88-92% Monitor RYAN Tucker qid. Monitor H/H DC Plans underway Jac Hammonds MD Jul 02, 2017 15:35
--- NOTE | 2017-07-02 16:41 | HHI.NPPN ---
Subjective History of Present Illness 76-year-old female with past medical history of hypertension, diabetes mellitus, hyperlipidemia, ischemic heart disease, chronic kidney disease, chronic obstructive pulmonary disease was admitted because of generalized weakness, decreased urine output. I he was called to see the patient for elevated BUN and creatinine. The patient is known to me from before. She has been following with me in the office and last time I saw her was on May 04 and at that time her creatinine was 2.2 with given the GFR of 19-20 she had advanced stage IV chronic kidney disease most likely because of diabetic nephropathy. Additional Remarks Patient is alert, with nasal cannula, Review of Systems General General Remarks Intubated and sedated. Objective Data Data Vital Signs Date Time Temp Pulse Resp B/P (MAP) Pulse Ox O2 Delivery O2 Flow Rate FiO2 07/02/17 16:00 97.4 76 19 138/64 (88) 92 07/02/17 12:00 93 2.00 07/02/17 12:00 96.4 76 17 153/67 (95) 95 07/02/17 08:00 97.0 65 19 123/65 (84) 95 07/02/17 06:26 93 Nasal Cannula 2.00 07/02/17 04:00 97.9 63 17 124/84 (97) 93 07/02/17 03:28 94 2.00 07/02/17 00:00 97.6 67 17 151/75 (100) 94 07/01/17 20:00 96.5 75 17 117/57 (77) 94 07/01/17 19:00 74 -: 07/02/17 0630 07/02/17 0630 Physical Exam General Appearance: No Acute Distress, Comfortable Eyes Eye Exam: Pupils Equal Throat Throat Exam: Oral Mucosa [place] & Moist Neck Neck Exam: Neck Supple Pulmonary Resp Exam: Breath Sounds Equal, Rhonchi, Decreased Bases, Diminished Breath Sounds, Poor Inspiratory Effort Cardiology CV Exam: Regular, Normal Sinus Rhythm Gastrointestinal/Abdomen GI Exam: Soft, Non-Tender, Bowel Sounds Present, Distended Extremeties Extremities Exam: Trace Edema Neurologic Neuro Exam: Alert, Awake, Oriented Psychiatric Psych Exam: Appropriate Responses Assessment/Plan Assessment Summary: [place]/Acute Renal Failure, Hypertension, CKD Stage IV Problem List: (1) Chronic kidney disease (CKD) ICD Codes: N18.9 - Chronic kidney disease, unspecified (2) Oliguria ICD Codes: R34 - Anuria and oliguria (3) Diarrhea ICD Codes: R19.7 - Diarrhea, unspecified (4) Metabolic acidosis ICD Codes: E87.2 - Acidosis Status: Acute (5) Uremia ICD Codes: N19 - Unspecified kidney failure Status: Acute (6) Acute renal failure ICD Codes: N17.9 - Acute kidney failure, unspecified Status: Acute Plan Patient has advance stage 4 chronic kidney disease, approach stage 5. Started on HD. Patient has COPD with high CO2 and developing SOB off and on. Off vent doing better BP is stable. Has tunneled catheter for HD Vascular called, they will do AVF as out patient. yesterday hemodialysis UF 2.5 L tolerating it well HD TTS Hb 8.[address] Lee to follow Problem Qualifiers (1) Chronic kidney disease (CKD): Qualified Codes: N18.5 - Chronic kidney disease, stage 5 (2) Acute renal failure: Qualified Codes: N17.9 - Acute kidney failure, unspecified Mike Saeed MD Jul 02, 2017 16:41
[2017-07-02] MEDS: ATORVASTATIN 40 MG TAB PO SCH (20:11)
[2017-07-03] VITALS (7 sets, daily range): BP systolic 127–203; BP diastolic 66–85; PULSE 54–79; RESP 17–22; TEMP 95.8–97.1; O2SAT 91–97
[2017-07-03] MEDS: DILTIAZEM HCL 60 MG TAB PO SCH ×4 (02:53→20:49)
[2017-07-03] MEDS: PROPRANOLOL HCL 10 MG TAB PO SCH ×3 (05:23→20:49)
[2017-07-03] MEDS: ISOSORBIDE MONONITRATE 30 MG TAB PO SCH (05:24)
[2017-07-03] MEDS: INSULIN NovoLIN REGULAR SUPPLEMENTAL SCALE SQ SCH ×2 (05:37→13:09)
[2017-07-03 07:51] LABS: AUTOMATED NEUTROPHIL # 9.1 TH/MM3 (1.8-7.7); BASOPHIL % 0.4 % (0.0-2.0); HEMATOCRIT 24.2 % (35.0-46.0); LYMPH % 1.7 % (9.0-44.0); LYMPHOCYTE # 0.2 TH/MM3 (1.0-4.8); MEAN CELL VOLUME 88.4 FL (80.0-100.0); MEAN CORPUSCULAR HEMOGLOBIN 30.3 PG (27.0-34.0); MEAN CORPUSCULAR HGB CONC 34.3 % (32.0-36.0); MONO % 3.7 % (0.0-8.0); NEUT % 94.2 % (16.0-70.0); PLATELET COUNT 57 TH/MM3 (150-450); RED BLOOD COUNT 2.73 MIL/MM3 (4.00-5.30); RED CELL DISTRIBUTION WIDTH 17.5 % (11.6-17.2); WHITE BLOOD COUNT 9.6 TH/MM3 (4.0-11.0)
[2017-07-03 08:04] LABS: HEMO FLAGS AUTO DIFF
[2017-07-03 08:23] LABS: ALKALINE PHOSPHATASE 151 U/L (45-117); ALT (GPT) 38 U/L (10-53); ANION GAP 13 MEQ/L (5-15); AST (GOT) 42 U/L (15-37); BICARBONATE 27.9 MEQ/L (21.0-32.0); BLOOD UREA NITROGEN 107 MG/DL (7-18); CHLORIDE 92 MEQ/L (98-107); FREE T4 0.59 NG/DL (0.76-1.46); GLOMERULAR FILTRATION RATE 8 ML/MIN (>89); POTASSIUM 5.7 MEQ/L (3.5-5.1); SODIUM (NA) 133 MEQ/L (136-145); TOTAL BILIRUBIN ADULT 1.3 MG/DL (0.2-1.0)
[2017-07-03] MEDS: PANTOPRAZOLE SODIUM 40 MG VIAL IV PUSH SCH ×2 (08:57→21:44)
[2017-07-03] MEDS: FERROUS SULFATE 325 MG (65 MG ELEMENTAL IRON) TAB PO SCH (08:57)
[2017-07-03] MEDS: CALCIUM ACETATE 667 MG CAP PO SCH ×3 (08:57→18:25)
[2017-07-03] MEDS: VITAMIN B CMPLX/VITC/FOLIC AC CAP PO SCH (08:57)
[2017-07-03] MEDS: SODIUM CHLORIDE 0.9% FLUSH 10 ML FLUSH IV FLUSH SCH ×3 (09:00→21:44)
[2017-07-03] MEDS: INSULIN DETEMIR 100 UNITS/ML VIAL SQ SCH (09:04)
[2017-07-03] MEDS: methylPREDNISolone SOD SUCC 40 MG/1 ML VIAL IV PUSH SCH ×2 (09:04→21:44)
[2017-07-03] MEDS: BUDESONIDE-FORMOTEROL 160/4.5 MCG INHALER INH SCH ×2 (09:04→21:43)
[2017-07-03 09:36] LABS: PLATELET ESTIMATE SMEAR LOW (NORMAL); PLATELET MORPHOLOGY ENLARGED (NORMAL); SCAN/DIFF AUTO DIFF CONFIRMED
--- NOTE | 2017-07-03 11:34 | HHI.GIFU ---
Subjective Remarks resting in bed, afebrile no acute complaints of abd pain or bleeding (Namita Harris) Objective Vitals I&O Vital Signs Date Time Temp Pulse Resp B/P (MAP) Pulse Ox O2 Delivery O2 Flow Rate FiO2 07/03/17 08:00 96.2 79 18 127/78 (94) 96 07/03/17 04:00 95.8 54 18 140/67 (91) 91 07/03/17 00:00 96.3 68 17 140/66 (90) 91 07/02/17 20:00 95.2 77 17 149/67 (94) 92 07/02/17 19:20 94 Nasal Cannula 2.00 07/02/17 16:00 97.4 76 19 138/64 (88) 92 07/02/17 12:00 93 2.00 07/02/17 12:00 96.4 76 17 153/67 (95) 95 I/O 07/02/17 07/02/17 07/02/17 07/03/17 07/03/17 07/03/17 07:00 15:00 23:00 07:00 15:00 23:00 Intake Total 240 ml 360 ml 240 ml Output Total 0 ml 0 ml Balance 240 ml 360 ml 240 ml Intake Oral 240 ml 360 ml 240 ml Output Urine Total 0 ml 0 ml # Voids 0 0 # Bowel Movements 0 0 Laboratory Laboratory Tests Test 07/03/17 06:31 White Blood Count 9.6 Red Blood Count 2.73 Hemoglobin 8.3 Hematocrit 24.2 Mean Corpuscular Volume 88.4 Mean Corpuscular Hemoglobin 30.3 Mean Corpuscular Hemoglobin Concent 34.3 Red Cell Distribution Width 17.5 Platelet Count 57 Mean Platelet Volume 10.0 Neutrophils (%) (Auto) 94.2 Lymphocytes (%) (Auto) 1.7 Monocytes (%) (Auto) 3.7 Eosinophils (%) (Auto) 0.0 Basophils (%) (Auto) 0.4 Neutrophils # (Auto) 9.1 Lymphocytes # (Auto) 0.2 Monocytes # (Auto) 0.4 Eosinophils # (Auto) 0.0 Basophils # (Auto) 0.0 CBC Comment AUTO DIFF Differential Comment AUTO DIFF CONFIRMED Platelet Estimate LOW Platelet Morphology Comment ENLARGED Blood Urea Nitrogen 107 Creatinine 5.21 Random Glucose 147 Total Protein 5.8 Albumin 3.4 Calcium Level 8.2 Phosphorus Level 6.4 Magnesium Level 2.0 Alkaline Phosphatase 151 Aspartate Amino Transf (AST/SGOT) 42 Alanine Aminotransferase (ALT/SGPT) 38 Total Bilirubin 1.3 Sodium Level 133 Potassium Level 5.7 Chloride Level 92 Carbon Dioxide Level 27.9 Anion Gap 13 Estimat Glomerular Filtration Rate 8 Free Thyroxine 0.59 Thyroid Stimulating Hormone 3rd Gen 0.372 Date/Time Source Procedure Growth Status 06/28/17 16:28 Blood Peripheral Aerobic Blood Culture - Final NO GROWTH IN 5 DAYS Complete 06/28/17 16:28 Blood Peripheral Anaerobic Blood Culture - Final NO GROWTH IN 5 DAYS Complete 06/13/17 18:31 Stool Stool Stool Occult Blood (MELISSA) - Final HEMOCCULT POSITIVE Complete 06/15/17 06:50 Nasal Aspirate Influenza Types A,B Antigen (MELISSA) - Final NEGATIVE FOR FLU A AND B ANTIGEN.... Complete 06/11/17 20:33 Urine Catheterized Urine Urine Culture - Final Lacey Glabrata Lacey Albicans Complete Imaging Last Impressions Upper Extremity Ultrasound 06/28/17 0000 Signed Impressions: Service Date/Time: Wednesday, June 28, 2017 08:00 - CONCLUSION: 1. No evidence for soft tissue abscess as questioned. 2. Thrombosed left cephalic vein in the antecubital fossa and proximal forearm. Berny Marie MD Liver Ultrasound 06/28/17 0000 Signed Impressions: Service Date/Time: Wednesday, June 28, 2017 07:48 - CONCLUSION: Echogenic liver possibly fatty infiltration. Tiny amount of fluid adjacent to the liver. Small bilateral pleural effusions. Status post cholecystectomy. Winston Li MD GI Bleed Scan Nuclear Medicine 06/28/17 0000 Signed Impressions: Service Date/Time: Wednesday, June 28, 2017 12:31 - CONCLUSION: No definite evidence of active colonic GI bleeding is noted. 2 very tiny areas are identified the right midabdomen but they do not correspond with bowel activity. Winston Li MD Chest X-Ray 06/28/17 0000 Signed Impressions: Service Date/Time: Wednesday, June 28, 2017 14:56 - CONCLUSION: Right IJ dual-lumen catheter in excellent position. Mild pulmonary vascular congestion with persistent cardiomegaly is unchanged Winston Li MD Central Venous Line 06/22/17 0000 Signed Impressions: Service Date/Time: June 00:00 - CONCLUSION: Uncomplicated catheter removal. Robles Corral MD Catheter Placement X-Ray 06/22/17 0000 Signed Impressions: Service Date/Time: June 14:04 - CONCLUSION: Uncomplicated PermaCath placement as above. Robles Corral MD Renal Ultrasound 05/31/17 0000 Signed Impressions: Service Date/Time: Wednesday, May 31, 2017 08:54 - CONCLUSION: 1. Abnormal appearance to the left kidney with diminutive size and poor delineation of the parenchymal architecture. 2. No gross abnormality seen in the right kidney. Aramis Scott MD Physical Exam HEENT: Normocephalic; atraumatic; no jaundice. PEARLA CHEST: Resp. even, unlabored, No SOB. rm air CARDIAC: Irregular, 90's ABDOMEN: Soft, taut, nontender to light palpation; bowel sounds soft, in all four quadrants. Rectal bag with small amount liquid brown stool in tubing. SKIN: pale , warm, dry EXTREMITIES: trace edema Namita Mustafa) Assessment and Plan Plan ASSESSMENT: - GIB Rectal bleeding. S/P EGD/Colonoscopy (06/19/17)---> 1. Gastritis antrum -biopsy duodenum normal-biopsy 2. Retroflexed views revealed a hiatal hernia 1. Ulcer cecum-visible vessel- 2 clips applied ulcer in ascending colon-biopsy ulcer in transverse colon-biopsy diverticulosis sigmoid,descending 2. Retroflexed views revealed internal hemorrhoids 3. Retroflexed views revealed medium internal hemorrhoids 4. Revealed external hemorrhoids 5. Revealed decreased sphincter tone. She then had melena and underwent EGD with control of bleeding (06/23/17)---> Severe gastropathy with significant areas and they fundus of the stomach oozing blood this was cauterized by heat with reasonable control of the bleeding but there was significant surface area that has potential for rebleeding Patient has gastritis in the antrum also. She was transfused with PRBC and FFP and BB was recommended as soon as possible to try to reduce portal htn. She was then transferred to [facility] for active GI bleeding. The plan was for a GI bleeding scan and possible egd/colonoscopy yesterday, but she did not take prep. S/P Bleeding scan ()---> No definite evidence of active colonic GI bleeding is noted. 2 very tiny areas are identified the right midabdomen but they do not correspond with bowel activity. Rectal bag with small amount liquid brown stool. HH 7.3/21.9. Getting transfused. On BB. 07/03, hgb stable at 8.3, no abd pain or active beeding - Cecal ulcer, s/p clipping. - Gastropathy. PPI, BB - Fatty liver, likely cirrhosis. US 06/28/17 with echogenic liver possibly fatty infiltration. Tiny amount of fluid adjacent to the liver. Small bilateral pleural effusions, s/p cholecystectomy. T. Bili 1.7, 38, 26 , 94. - Thrombocytopenia/Coagulopathy. Plt 70. PT 11.5. INR 1.0. Vit. K - DVT Left IJ vein, superficial thrombus left cephalic vein. - Atrial fibrillation, HR - COPD/HCAP. Per [facility] - ARF, HD per nephrology. 3X week - HTN, Hyperlipidemia, CKD, DM, Anxiety per attending. PLAN: - Protonix IV - Zofran as needed -Senokot/Glycerin supp. as needed -Imodium as needed - Monitor labs - Transfuse as necessary - Supportive care - Notify GI of active bleeding,high risk from rebleeding colon lesions. -Encourage ambulation -Heart healthy renal diet. - Further recommendations to follow based on results of above - Pt seen and exmained by Dr. Moseley and myself and this note is written on his behalf (Namita Harris) Physician Comments seen, examined agree with above hematology inquiring about restarting anticoagulation She is high risk of rebleeding , but also she is high risk for embolism in view of risl , benefits of restarting anticoagulation, ok to restart with close monitoring abdominal us with mesenteric vessels Doppler (Danna Moseley MD) Namita Harris Jul 03, 2017 11:34 Danna Moseley MD Jul 03, 2017 16:11
--- NOTE | 2017-07-03 13:11 | PD.ONC.PN ---
Subjective Subjective Remarks Afebrile overnight. No bowel movement in two days. Has not seen any bleeding. Resting comfortably. Objective Data Date Time Temp Pulse Resp B/P (MAP) Pulse Ox O2 Delivery O2 Flow Rate FiO2 07/03/17 12:00 97.1 59 18 168/72 (104) 96 07/03/17 08:00 96.2 79 18 127/78 (94) 96 07/03/17 04:00 95.8 54 18 140/67 (91) 91 07/03/17 00:00 96.3 68 17 140/66 (90) 91 07/02/17 20:00 95.2 77 17 149/67 (94) 92 07/02/17 19:20 94 Nasal Cannula 2.00 07/02/17 16:00 97.4 76 19 138/64 (88) 92 07/03/17 07/03/17 07/03/17 07:00 15:00 23:00 Intake Total 240 ml Output Total 0 ml Balance 240 ml Result Diagram: 07/03/1763007/03/17 0631 Laboratory Results Laboratory Tests Test 07/03/17 06:31 White Blood Count 9.6 TH/MM3 Red Blood Count 2.73 MIL/MM3 Hemoglobin 8.3 GM/DL Hematocrit 24.2 % Mean Corpuscular Volume 88.4 FL Mean Corpuscular Hemoglobin 30.3 PG Mean Corpuscular Hemoglobin Concent 34.3 % Red Cell Distribution Width 17.5 % Platelet Count 57 TH/MM3 Mean Platelet Volume 10.0 FL Neutrophils (%) (Auto) 94.2 % Lymphocytes (%) (Auto) 1.7 % Monocytes (%) (Auto) 3.7 % Eosinophils (%) (Auto) 0.0 % Basophils (%) (Auto) 0.4 % Neutrophils # (Auto) 9.1 TH/MM3 Lymphocytes # (Auto) 0.2 TH/MM3 Monocytes # (Auto) 0.4 TH/MM3 Eosinophils # (Auto) 0.0 TH/MM3 Basophils # (Auto) 0.0 TH/MM3 CBC Comment AUTO DIFF Differential Comment AUTO DIFF CONFIRMED Platelet Estimate LOW Platelet Morphology Comment ENLARGED Blood Urea Nitrogen 107 MG/DL Creatinine 5.21 MG/DL Random Glucose 147 MG/DL Total Protein 5.8 GM/DL Albumin 3.4 GM/DL Calcium Level 8.2 MG/DL Phosphorus Level 6.4 MG/DL Magnesium Level 2.0 MG/DL Alkaline Phosphatase 151 U/L Aspartate Amino Transf (AST/SGOT) 42 U/L Alanine Aminotransferase (ALT/SGPT) 38 U/L Total Bilirubin 1.3 MG/DL Sodium Level 133 MEQ/L Potassium Level 5.7 MEQ/L Chloride Level 92 MEQ/L Carbon Dioxide Level 27.9 MEQ/L Anion Gap 13 MEQ/L Estimat Glomerular Filtration Rate 8 ML/MIN Free Thyroxine 0.59 NG/DL Thyroid Stimulating Hormone 3rd Gen 0.372 uIU/ML Administered Medications Medications (Trade) Dose Ordered Sig/[place] Route PRN Reason Start Time Stop Time Status Last Admin Dose Admin Sodium Chloride (NS Flush) 2 ml UNSCH PRN IV FLUSH FLUSH AFTER USING IV ACCESS 05/30/17 21:45 06/23/17 05:39 Sodium Chloride (NS Flush) 2 ml BID IV FLUSH 05/31/17 09:00 07/03/17 09:00 Atorvastatin Calcium (Lipitor) 80 mg HS PO 05/31/17 21:00 Future hold 07/02/17 20:11 Ondansetron HCl (Zofran Inj) 4 mg Q6HR PRN IV PUSH NAUSEA OR VOMITING 05/31/17 13:00 06/29/17 19:53 Sodium Chloride 1,000 ml @ 0 mls/hr Q0M PRN OTHER For Prime & Rinse Back 06/01/17 09:07 06/24/17 09:31 Sodium Chloride 1,000 ml @ 200 mls/hr Q5H PRN IV WITH DIALYSIS 06/01/17 09:07 06/16/17 14:53 Mannitol (Mannitol Inj) 12.5 gm UNSCH PRN IV WITH DIALYSIS 06/01/17 09:15 06/02/17 08:06 Albumin Human 100 ml @ 60 mls/hr UNSCH PRN IV WITH DIALYSIS 06/01/17 09:15 07/01/17 12:18 Sodium Chloride (NS Flush) 5 ml UNSCH PRN IV FLUSH WITH DIALYSIS 06/01/17 09:15 06/24/17 09:31 Heparin Sodium (Porcine) (Heparin Inj) UNSCH PRN .XX WITH DIALYSIS 06/01/17 09:15 07/01/17 12:14 Gentamicin Sulfate (Gentamicin (Dialysis) Inj) 20 mg UNSCH PRN OTHER WITH DIALYSIS 06/01/17 09:15 07/01/17 12:13 Clonidine (Catapres) 0.1 mg UNSCH PRN PO for BP > 180/100 X 2 readings 06/01/17 09:15 06/22/17 02:28 Alprazolam (Xanax) 0.5 mg Q8H PRN PO MILD ANXIETY 06/06/17 13:00 06/30/17 21:04 Epoetin Geoffrey (Epogen Inj) 10,000 units UNSCH PRN IV PUSH WITH DIALYSIS 06/07/17 21:30 07/01/17 12:15 Vitamin B Complex/ Vit C/Folic Acid (Nephrocaps) 1 cap DAILY PO 06/08/17 09:00 07/03/17 08:57 Calcium Acetate (Phoslo) 1,334 mg TID PO 06/08/17 09:00 07/03/17 08:57 Ferrous Sulfate (Ferrous Sulfate) 325 mg DAILY PO 06/09/17 09:00 07/03/17 08:57 Loperamide HCl (Imodium Liq) 2 mg Q4H PRN PO DIARRHEA 06/10/17 13:00 06/21/17 20:35 Sodium Chloride (NS Flush) DAILY IV FLUSH 06/12/17 09:00 06/29/17 07:55 Budesonide/ Formoterol Fumarate (Symbicort 160-4.5 Inh) 2 puff Q12HR INH 06/17/17 09:00 07/03/17 09:04 Insulin Detemir (Levemir Inj) 25 units Q12HR SQ 06/18/17 09:00 Future hold 07/03/17 09:04 Albuterol Sulfate (Albuterol Neb) 2.5 mg Q2HR NEB PRN NEB dyspnea 06/22/17 06:45 06/27/17 19:52 Hydralazine HCl (Apresoline) 100 mg Q8HR PO 06/22/17 14:00 Future Hold 06/24/17 05:29 Isosorbide Mononitrate (Imdur) 30 mg DAILY@07 PO 06/22/17 07:00 07/03/17 05:24 Miscellaneous (Pill Splitter) 1 ea UNSCH PRN OTHER SEE LABEL COMMENTS 06/22/17 18:00 06/23/17 14:16 Methylprednisolone Sodium Succinate (SoluMEDROL INJ) 40 mg Q12H IV PUSH 06/28/17 10:00 07/03/17 09:04 Acetaminophen/ Hydrocodone Bitart ([place] 5-325 Mg) 2 tab Q6H PRN PO PAIN 6-10 06/28/17 08:15 07/01/17 00:07 Insulin Human Regular (NovoLIN R SUPPLEMENTAL SCALE) 1 Q6HR SQ 06/28/17 12:00 07/03/17 05:37 Pantoprazole Sodium (Protonix Inj) 40 mg Q12HR IV PUSH 06/28/17 13:00 07/03/17 08:57 Propranolol HCl (Inderal) 10 mg Q8HR PO 06/28/17 14:00 07/03/17 05:23 Diltiazem HCl (Cardizem) 60 mg Q6H PO 06/29/17 08:00 07/03/17 08:57 Objective Remarks GENERAL: Elderly female supine in bed resting. SKIN: Warm and dry. HEAD: Normocephalic. EYES: No injection or drainage. NECK: Supple, trachea midline. CARDIOVASCULAR: Regular rate and rhythm RESPIRATORY: anterior shaffer clear. GASTROINTESTINAL: Abdomen soft, non-tender, nondistended. EXTREMITIES: No cyanosis NEUROLOGICAL: awake and alert, normal speech. Assessment/Plan Problem List: (1) DVT of upper extremity (deep vein thrombosis) ICD Codes: I82.629 - Acute embolism and thrombosis of deep veins of unspecified upper extremity Status: Acute Plan: Anticoagulation on hold due to acute GI bleed, melena/BRBPR, anemia and thrombocytopenia. LUE previous internal jugular vein thrombus, L cephalic vein persist on FU US today. (2) Acute blood loss anemia ICD Codes: D62 - Acute posthemorrhagic anemia Status: Acute Plan: Supportive transfusion. Likely etiology of anemia/thrombocytopenia. Work up negative: HIT neg, PAT neg, retic high c/w blood loss anemia. EGD/colonoscopy 06/19-->gastritis in the antrum. +large hiatal hernia. Colonoscopy showed ulcer in the cecum. These were treated with clips. There is no active bleeding. She does not have esophageal varices. EGD/colonoscopy 06/23--> erythematous gastritis in the gastric antrum; Severe diverticulosis in the sigmoid colon. 3 x 5cm colitis was found in the transverse colon; The mucosa was erythematous, friable, ulcerated and oozing blood; Injected with 5 cc of epinephrine, and ablated with APC. Good hemostasis obtained Bleeding scan (06/28/17)---> No definite evidence of active colonic GI bleeding is noted. 2 very tiny areas are identified the right midabdomen but they do not correspond with bowel activity. Assessment 76y/o female admitted with generalized weakness. Hematology consulted for anemia /thrombocytopenia. history of hypertension, diabetes, hyperlipidemia, ischemic heart disease, chronic kidney disease on hemodialysis. COPD Plan 1. check coag/fibrinogen today 2. check ultrasound lower extremities 3. hgb and platelet continuing to fall, will hold off on starting anticoagulation. she is still high risk for further bleeding. Attending Statement The exam, history, and the medical decision-making described in the above note were completed with the assistance of the mid-level provider. I reviewed and agree with the findings presented. I attest that I had a [id number] encounter with the patient on the same day, and personally performed and documented my assessment and findings in the medical record. Pt seen and examined. Deconditioned. No leg swelling. US LE neg. "I want to get out of here" State she is moving her legs, can't wait to be home where she is more comfortable. Denies any bleeding. Noted however, decrease hgb and platelet count. 06/22 US L UE show IJ vein clot 06/28. L cephalic vein clot low risk embolism. Risk bleeding higher than embolic event. Hold anticoagulation for now. Problem Qualifiers (1) DVT of upper extremity (deep vein thrombosis): Qualified Codes: I82.622 - Acute embolism and thrombosis of deep veins of left upper extremity Leticia Telles Jul 03, 2017 13:11 Socorro Foster MD Jul 03, 2017 19:06
--- NOTE | 2017-07-03 14:39 | RADRPT ---
EXAM DATE/TIME: 07/03/2017 13:54 [facility] COMPARISON: No previous studies available for comparison. INDICATIONS : Bilateral leg pain. MEDICAL HISTORY : Chronic obstructive pulmonary disease. Hypercholesterolemia. Hypertension. Renal failure. Diabetes. L iver disease. SURGICAL HISTORY : Cholecystectomy. Hysterectomy. Appendectomy. ENCOUNTER: Initial ACUITY: 1 day PAIN SCORE: 0/10 LOCATION: Bilateral legs. TECHNIQUE: Venous ultrasound of the left and right leg was performed from the inguinal ligament to the proximal calf. Real-time, color Doppler and spectral tracing, compression and augmentation techniques were us ed. FINDINGS: RIGHT LEG: There is normal compressibility of the deep venous system from the inguinal region to the proximal ca lf. No echogenic clot is seen in the lumen of the common femoral, femoral, popliteal, and posterior tibial veins. There is a normal response of the venous system to proximal and distal augmentation an d respiration. LEFT LEG: There is normal compressibility of the deep venous system from the inguinal region to the proximal ca lf. No echogenic clot is seen in the lumen of the common femoral, femoral, popliteal, and posterior tibial veins. There is a normal response of the venous system to proximal and distal augmentation an d respiration. CONCLUSION: Normal examination. Christ Feldman MD on July 03, 2017 at 14:37 Board Certified Radiologist. This report was verified electronically.
--- NOTE | 2017-07-03 15:07 | HHI.NPPN ---
Subjective History of Present Illness 76-year-old female with past medical history of hypertension, diabetes mellitus, hyperlipidemia, ischemic heart disease, chronic kidney disease, chronic obstructive pulmonary disease was admitted because of generalized weakness, decreased urine output. I he was called to see the patient for elevated BUN and creatinine. The patient is known to me from before. She has been following with me in the office and last time I saw her was on May 04 and at that time her creatinine was 2.2 with given the GFR of 19-20 she had advanced stage IV chronic kidney disease most likely because of diabetic nephropathy. Additional Remarks Patient is alert, with nasal cannula, not eating well. Review of Systems General General Remarks Intubated and sedated. Objective Data Data Vital Signs Date Time Temp Pulse Resp B/P (MAP) Pulse Ox O2 Delivery O2 Flow Rate FiO2 07/03/17 13:02 Nasal Cannula 2.00 07/03/17 12:00 97.1 59 18 168/72 (104) 96 07/03/17 08:00 96.2 79 18 127/78 (94) 96 07/03/17 04:00 95.8 54 18 140/67 (91) 91 07/03/17 00:00 96.3 68 17 140/66 (90) 91 07/02/17 20:00 95.2 77 17 149/67 (94) 92 07/02/17 19:20 94 Nasal Cannula 2.00 07/02/17 16:00 97.4 76 19 138/64 (88) 92 -: 07/03/17 0631 07/03/17 0631 Physical Exam General Appearance: No Acute Distress, Comfortable Eyes Eye Exam: Pupils Equal Throat Throat Exam: Oral Mucosa [place] & Moist Neck Neck Exam: Neck Supple Pulmonary Resp Exam: Breath Sounds Equal, Rhonchi, Decreased Bases, Diminished Breath Sounds, Poor Inspiratory Effort Cardiology CV Exam: Regular, Normal Sinus Rhythm Gastrointestinal/Abdomen GI Exam: Soft, Non-Tender, Bowel Sounds Present, Distended Extremeties Extremities Exam: Trace Edema Neurologic Neuro Exam: Alert, Awake, Oriented Psychiatric Psych Exam: Appropriate Responses Assessment/Plan Assessment Summary: [place]/Acute Renal Failure, Hypertension, CKD Stage IV Problem List: (1) Chronic kidney disease (CKD) ICD Codes: N18.9 - Chronic kidney disease, unspecified (2) Oliguria ICD Codes: R34 - Anuria and oliguria (3) Diarrhea ICD Codes: R19.7 - Diarrhea, unspecified (4) Metabolic acidosis ICD Codes: E87.2 - Acidosis Status: Acute (5) Uremia ICD Codes: N19 - Unspecified kidney failure Status: Acute (6) Acute renal failure ICD Codes: N17.9 - Acute kidney failure, unspecified Status: Acute Plan Patient has advance stage 4 chronic kidney disease, approach stage 5. Started on HD. Patient has COPD with high CO2 and developing SOB off and on. Off vent doing better BP is stable. Has tunneled catheter for HD Vascular called, they will do AVF as out patient. HD done, K was high pre HD, now better. Out patient HD arrangement. Problem Qualifiers (1) Chronic kidney disease (CKD): Qualified Codes: N18.5 - Chronic kidney disease, stage 5 (2) Acute renal failure: Qualified Codes: N17.9 - Acute kidney failure, unspecified Lexy Lee MD Jul 03, 2017 15:07
[2017-07-03 16:22] LABS: HEMOGLOBIN A1a 1.3 %; HEMOGLOBIN A1b 2.1 %; HEMOGLOBIN Ao 81.7 %; HEMOGLOBIN LA1C 2.5 %; HEMOGLOBIN P3 6.7 %
[2017-07-03 16:55] LABS: APTT (PATIENT) 24.6 SEC (24.3-30.1); PROTHROMBIN TIME - PATIENT 10.8 SEC (9.8-11.6)
--- NOTE | 2017-07-03 17:01 | HHI.PR ---
Subjective Remarks Mrs. Wilkinson is doing well today. No further episodes of A. fib RVR. Hyperkalemia present today. She is currently on hemodialysis. She will need PT and OT long-term. Anticoagulation is resumed today. Objective Vital Signs Date Time Temp Pulse Resp B/P (MAP) Pulse Ox O2 Delivery O2 Flow Rate FiO2 07/03/17 16:00 96.9 62 18 159/74 (102) 96 07/03/17 13:02 Nasal Cannula 2.00 07/03/17 12:00 97.1 59 18 168/72 (104) 96 07/03/17 08:00 96.2 79 18 127/78 (94) 96 07/03/17 04:00 95.8 54 18 140/67 (91) 91 07/03/17 00:00 96.3 68 17 140/66 (90) 91 07/02/17 20:00 95.2 77 17 149/67 (94) 92 07/02/17 19:20 94 Nasal Cannula 2.00 I/O 07/02/17 07/02/17 07/02/17 07/03/17 07/03/17 07/03/17 07:00 15:00 23:00 07:00 15:00 23:00 Intake Total 240 ml 360 ml 240 ml Output Total 0 ml 0 ml Balance 240 ml 360 ml 240 ml Intake Oral 240 ml 360 ml 240 ml Output Urine Total 0 ml 0 ml # Voids 0 0 # Bowel Movements 0 0 Result Diagram: 07/03/1731 07/03/17 0631 Objective Remarks GENERAL: NAD, A&Ox3 HEAD: Normocephalic. NECK: Supple, trachea midline. No lymphadenopathy. EYES: No scleral icterus. No injection or drainage. CARDIOVASCULAR: Irregularly irregular rate with tachycardic rhythm, without murmurs, gallops, or rubs. RESPIRATORY: Breath sounds equal bilaterally. No accessory muscle use. GASTROINTESTINAL: Abdomen soft, non-tender, nondistended. MUSCULOSKELETAL: No cyanosis, or edema. SKIN: Warm and dry. NEURO: No focal neurological deficitis. A/P Problem List: (1) Atrial fibrillation with RVR ICD Code: I48.91 - Unspecified atrial fibrillation Status: Resolved (2) COPD exacerbation ICD Code: J44.1 - Chronic obstructive pulmonary disease with (acute) exacerbation Status: Acute (3) Acute renal failure ICD Code: N17.9 - Acute kidney failure, unspecified Status: Acute (4) Chronic kidney disease (CKD) ICD Code: N18.9 - Chronic kidney disease, unspecified (5) Paroxysmal atrial fibrillation ICD Code: I48.0 - Paroxysmal atrial fibrillation Status: Acute Assessment and Plan Assessment and plan 76-year-old female admitted secondary to pneumonia with acute renal failure. Presently on chronic hemodialysis. A. fib RVR Baseline paroxysmal A. fib Now rate controlled Continue Cardizem Follow on telemetry Community-acquired pneumonia COPD exacerbation Treatment completed No further exacerbation Status post extubation 06/06/17 Continue oxygen as needed Continue Spiriva Continue Symbicort Chronic kidney disease stage IV End-stage renal disease Continue on hemodialysis Nephrology following Outpatient arrangements are in process R Permacath placed 06/22 Continue calcium acetate 1334 mg 3 times a day Gen. anxiety disorder Continue as needed Xanax Anemia Related to chronic kidney disease Continue Epogen Continue iron Diabetes mellitus type 2 Follow blood sugars Insulin sliding scale Diabetic diet DVT Prophylaxis Heparin Discharge Planning halfway facility for OT and PT Outpatient Dialysis anticipated Problem Qualifiers (1) Acute renal failure: Qualified Codes: N17.9 - Acute kidney failure, unspecified (2) Chronic kidney disease (CKD): Qualified Codes: N18.5 - Chronic kidney disease, stage 5 Laci Ibarra MD Jul 03, 2017 17:01
--- NOTE | 2017-07-03 17:25 | HHI.HCPN ---
Reason for visit a. To assist with evaluation and management of symptoms including: Dyspnea, anxiety b. To assist medical decision maker(s) with: better understanding of current medical conditions; weighing benefits/burdens of medical treatment options; making medical treatment decisions. Subjective/Interval History Transferred from [place] for acute GI bleed. No current bleeding. Patient believes she is going home tomorrow. She has not been out of bed with physical therapy. Arrangements are being made with [facility] for outpatient hemodialysis. Chair time pending. Patient planning to move to [place] to be closer to her daughter. Interim history: * Laboratory: WBC 9.6, Hgb 8.3, HCT 24.2, platelets 57, PT 10.8, INR 1.0, APTT 24.6, fibrinogen 223, sodium 133, potassium 5.7, BUN 107, creatinine 5.21, calcium 8.2, phosphorus 6.4. * Radiology: Bilateral venous Doppler is negative for DVT. Consultations: * Hematology: Cleared patient to resume anticoagulation, she is considered high risk for rebleeding and for embolism. Remains thrombocytopenic with platelets at 57. HIT panel was negative. Bleeding scan was negative. * Gastroenterology: EGD 06/23 showed erythematous gastritis in the gastric antrum with severe diverticulosis in the sigmoid colon. 3 x 5 cm colitis was found in the transverse colon. Mucosa was erythematous, friable, ulcerated and oozing blood. Injected with 5 cc of epinephrine and ablated with APC with good hemostasis obtained. Continue Protonix. Advance Directives Health Care Surrogate: Copy in medical record Advance Directive Specifics Health Care Surrogate(s): Dorothea Gonzalez, patient's daughter Objective Vital Signs Date Time Temp Pulse Resp B/P (MAP) Pulse Ox O2 Delivery O2 Flow Rate FiO2 07/03/17 13:02 Nasal Cannula 2.00 07/03/17 12:00 97.1 59 18 168/72 (104) 96 07/03/17 08:00 96.2 79 18 127/78 (94) 96 07/03/17 04:00 95.8 54 18 140/67 (91) 91 07/03/17 00:00 96.3 68 17 140/66 (90) 91 07/02/17 20:00 95.2 77 17 149/67 (94) 92 07/02/17 19:20 94 Nasal Cannula 2.00 Intake & Output 07/03/17 07/03/17 07:00 19:00 Intake Total 240 ml Output Total 0 ml Balance 240 ml Intake Oral 240 ml Output Urine Total 0 ml # Voids 0 # Bowel Movements 0 Physical Exam CONSTITUTIONAL/GENERAL: This is an elderly female patient, in no apparent distress. TUBES/LINES/DRAINS: PIV x1, Vas cath SKIN: No jaundice, rashes, or lesions. Right ACF bruise. Skin temperature appropriate. Not diaphoretic. Painful excoriation on coccyx. EYES: Pupils equal and round and reactive. Extraocular motions intact. No scleral icterus. No injection or drainage. Fundi not examined. ENT: Hearing grossly normal. Nose without bleeding or purulent drainage. Throat without visible erythema, exudates, masses, or lesions. CARDIOVASCULAR: Irregular rhythm, controlled rate without murmurs, gallops, or rubs. No JVD. Peripheral pulses symmetric. RESPIRATORY/CHEST: Symmetric, unlabored respirations. Clear to auscultation. Breath sounds equal bilaterally. No wheezes, rales, or rhonchi. GASTROINTESTINAL: Abdomen soft, non-tender, nondistended. No hepato-splenomegaly , or palpable masses. No guarding. Bowel sounds present. GENITOURINARY: Without palpable bladder distension. MUSCULOSKELETAL: Extremities without clubbing, cyanosis, or edema. No joint tenderness or effusion noted. No calf tenderness. No mottling or clubbing. NEUROLOGICAL: Alert and oriented 4, no obvious deficits. PSYCHIATRIC: Cooperative. . Diagnostic Tests Laboratory Laboratory Tests Test 07/01/17 05:08 07/02/17 06:30 07/03/17 06:31 07/03/17 16:06 White Blood Count 7.8 TH/MM3 (4.0-11.0) 9.2 TH/MM3 (4.0-11.0) 9.6 TH/MM3 (4.0-11.0) Red Blood Count 2.92 MIL/MM3 (4.00-5.30) 2.90 MIL/MM3 (4.00-5.30) 2.73 MIL/MM3 (4.00-5.30) Hemoglobin 8.7 GM/DL (11.6-15.3) 8.7 GM/DL (11.6-15.3) 8.3 GM/DL (11.6-15.3) Hematocrit 26.0 % (35.0-46.0) 25.8 % (35.0-46.0) 24.2 % (35.0-46.0) Mean Corpuscular Volume 89.0 FL (80.0-100.0) 88.9 FL (80.0-100.0) 88.4 FL (80.0-100.0) Mean Corpuscular Hemoglobin 29.8 PG (27.0-34.0) 30.1 PG (27.0-34.0) 30.3 PG (27.0-34.0) Mean Corpuscular Hemoglobin Concent 33.4 % (32.0-36.0) 33.9 % (32.0-36.0) 34.3 % (32.0-36.0) Red Cell Distribution Width 17.1 % (11.6-17.2) 17.1 % (11.6-17.2) 17.5 % (11.6-17.2) Platelet Count 65 TH/MM3 (150-450) 62 TH/MM3 (150-450) 57 TH/MM3 (150-450) Mean Platelet Volume 9.7 FL (7.0-11.0) 9.5 FL (7.0-11.0) 10.0 FL (7.0-11.0) Neutrophils (%) (Auto) 95.3 % (16.0-70.0) 93.4 % (16.0-70.0) 94.2 % (16.0-70.0) Lymphocytes (%) (Auto) 1.3 % (9.0-44.0) 1.8 % (9.0-44.0) 1.7 % (9.0-44.0) Monocytes (%) (Auto) 3.2 % (0.0-8.0) 4.6 % (0.0-8.0) 3.7 % (0.0-8.0) Eosinophils (%) (Auto) 0.1 % (0.0-4.0) 0.0 % (0.0-4.0) 0.0 % (0.0-4.0) Basophils (%) (Auto) 0.1 % (0.0-2.0) 0.2 % (0.0-2.0) 0.4 % (0.0-2.0) Neutrophils # (Auto) 7.5 TH/MM3 (1.8-7.7) 8.6 TH/MM3 (1.8-7.7) 9.1 TH/MM3 (1.8-7.7) Lymphocytes # (Auto) 0.1 TH/MM3 (1.0-4.8) 0.2 TH/MM3 (1.0-4.8) 0.2 TH/MM3 (1.0-4.8) Monocytes # (Auto) 0.2 TH/MM3 (0-0.9) 0.4 TH/MM3 (0-0.9) 0.4 TH/MM3 (0-0.9) Eosinophils # (Auto) 0.0 TH/MM3 (0-0.4) 0.0 TH/MM3 (0-0.4) 0.0 TH/MM3 (0-0.4) Basophils # (Auto) 0.0 TH/MM3 (0-0.2) 0.0 TH/MM3 (0-0.2) 0.0 TH/MM3 (0-0.2) CBC Comment AUTO DIFF AUTO DIFF AUTO DIFF Differential Comment AUTO DIFF CONFIRMED FINAL DIFF MANUAL AUTO DIFF CONFIRMED Platelet Estimate LOW (NORMAL) LOW (NORMAL) LOW (NORMAL) Platelet Morphology Comment NORMAL (NORMAL) ENLARGED (NORMAL) ENLARGED (NORMAL) Blood Urea Nitrogen 122 MG/DL (7-18) 77 MG/DL (7-18) 107 MG/DL (7-18) Creatinine 6.07 MG/DL (0.50-1.00) 4.14 MG/DL (0.50-1.00) 5.21 MG/DL (0.50-1.00) Random Glucose 378 MG/DL (74-106) 190 MG/DL (74-106) 147 MG/DL (74-106) Calcium Level 7.7 MG/DL (8.5-10.1) 8.3 MG/DL (8.5-10.1) 8.2 MG/DL (8.5-10.1) Sodium Level 133 MEQ/L (136-145) 135 MEQ/L (136-145) 133 MEQ/L (136-145) Potassium Level 4.9 MEQ/L (3.5-5.1) 4.6 MEQ/L (3.5-5.1) 5.7 MEQ/L (3.5-5.1) Chloride Level 92 MEQ/L (98-107) 94 MEQ/L (98-107) 92 MEQ/L (98-107) Carbon Dioxide Level 25.3 MEQ/L (21.0-32.0) 27.3 MEQ/L (21.0-32.0) 27.9 MEQ/L (21.0-32.0) Anion Gap 16 MEQ/L (5-15) 14 MEQ/L (5-15) 13 MEQ/L (5-15) Estimat Glomerular Filtration Rate 7 ML/MIN (>89) 10 ML/MIN (>89) 8 ML/MIN (>89) Differential Total Cells Counted 100 Neutrophils % (Manual) 97 % (16-70) Band Neutrophils % 1 % (0-6) Monocytes % 1 % (0-8) Neutrophils # (Manual) 9.1 TH/MM3 (1.8-7.7) Myelocytes 1 % (0-0) Basophilic Stippling FAINT (NORMAL) Ovalocytes 1+ (NORMAL) Total Protein 5.8 GM/DL (6.4-8.2) Albumin 3.4 GM/DL (3.4-5.0) Phosphorus Level 6.4 MG/DL (2.5-4.9) Magnesium Level 2.0 MG/DL (1.5-2.5) Alkaline Phosphatase 151 U/L (45-117) Aspartate Amino Transf (AST/SGOT) 42 U/L (15-37) Alanine Aminotransferase (ALT/SGPT) 38 U/L (10-53) Total Bilirubin 1.3 MG/DL (0.2-1.0) Free Thyroxine 0.59 NG/DL (0.76-1.46) Thyroid Stimulating Hormone 3rd Gen 0.372 uIU/ML (0.358-3.740) Result Diagram: 07/03/1763007/03/1731 Microbiology Microbiology Date/Time Source Procedure Growth Status 06/28/17 16:28 Blood Peripheral Aerobic Blood Culture - Final NO GROWTH IN 5 DAYS Complete 06/28/17 16:28 Blood Peripheral Anaerobic Blood Culture - Final NO GROWTH IN 5 DAYS Complete 06/13/17 18:31 Stool Stool Stool Occult Blood (MELISSA) - Final HEMOCCULT POSITIVE Complete 06/15/17 06:50 Nasal Aspirate Influenza Types A,B Antigen (MELISSA) - Final NEGATIVE FOR FLU A AND B ANTIGEN.... Complete 06/11/17 20:33 Urine Catheterized Urine Urine Culture - Final Lacey Glabrata Lacey Albicans Complete Imaging Last Impressions Upper Extremity Ultrasound 06/28/17 0000 Signed Impressions: Service Date/Time: Wednesday, June 28, 2017 08:00 - CONCLUSION: 1. No evidence for soft tissue abscess as questioned. 2. Thrombosed left cephalic vein in the antecubital fossa and proximal forearm. Berny Marie MD Liver Ultrasound 06/28/17 0000 Signed Impressions: Service Date/Time: Wednesday, June 28, 2017 07:48 - CONCLUSION: Echogenic liver possibly fatty infiltration. Tiny amount of fluid adjacent to the liver. Small bilateral pleural effusions. Status post cholecystectomy. Winston Li MD GI Bleed Scan Nuclear Medicine 06/28/17 0000 Signed Impressions: Service Date/Time: Wednesday, June 28, 2017 12:31 - CONCLUSION: No definite evidence of active colonic GI bleeding is noted. 2 very tiny areas are identified the right midabdomen but they do not correspond with bowel activity. Winston Li MD Chest X-Ray 06/28/17 0000 Signed Impressions: Service Date/Time: Wednesday, June 28, 2017 14:56 - CONCLUSION: Right IJ dual-lumen catheter in excellent position. Mild pulmonary vascular congestion with persistent cardiomegaly is unchanged Winston Li MD Central Venous Line 06/22/17 0000 Signed Impressions: Service Date/Time: June 00:00 - CONCLUSION: Uncomplicated catheter removal. Robles Corral MD Catheter Placement X-Ray 06/22/17 0000 Signed Impressions: Service Date/Time: June 14:04 - CONCLUSION: Uncomplicated PermaCath placement as above. Robles Corral MD Renal Ultrasound 05/31/17 0000 Signed Impressions: Service Date/Time: Wednesday, May 31, 2017 08:54 - CONCLUSION: 1. Abnormal appearance to the left kidney with diminutive size and poor delineation of the parenchymal architecture. 2. No gross abnormality seen in the right kidney. Aramis Scott MD Procedures 06/01-endotracheal intubation. 06/01-hemodialysis catheter placement in the right IJ vein 06/12-endotracheal intubation 06/12-left IJ central venous catheter placement 06/19-colonoscopy showing ulcers in the cecum, ascending colon, transverse colon and sigmoid diverticulosis. Biopsies taken. 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 She has been twice, in the first and was then during her second marriage. She moved to [place] in 1993 and lives in her own home since that time. She has 1 daughter, Dorothea Gonzalez who lives in [place]. Spiritual: She is a non-practicing [employer] who would accept digital asset coordinator visits. Legal: She is currently able to make decisions for herself, however has designated her daughter Dorothea as her healthcare surrogate. Ethical issues impacting care: None noted at this time . Important Contacts Daughter-Dorothea Gonzalez Prognosis Her prognosis is guarded. She has been intubated twice and has required BiPAP to prevent a third intubation. She has smoked for approximately 60 years is morbidly obese and sedentary. She is now developed end-stage renal disease and is on dialysis. She has uncontrolled diabetes mellitus and anemia. She was found to have multiple ulcers on colonoscopy and is now on Procrit for combination anemia of chronic disease and GI blood loss. Given her debility from extended hospitalization and baseline decline she is at significant risk for falls, poor self-care and recurrent hospitalizations. . Code Status: Alternative Code Plan PLAN: Legal decision maker: She is currently able to make her own decisions but has designated her daughter, Dorothea Gonzalez as the healthcare surrogate decision- maker. Goals: Aggressive short of CPR. CODE STATUS: Alternative code, intubation only. SYMPTOMS: * Dyspnea: She remains on oxygen at this time. She states that she is not going to smoke anymore and this was encouraged. She is currently receiving albuterol, Solu-Medrol, Symbicort, Ativan. She remains at risk for continued respiratory compromise. * Anxiety: She has a chronic baseline anxiety for which she took Xanax at home. She is very happy that she has quit smoking and is showing no significant anxiety at this time. She is at risk for anxiety secondary to her high bleeding risk. She states she does not want to go to a SNF, however, she has not been out of bed since she was hospitalized. Case management planning for significant discharge. Patient's ultimate goal is to move to [place] near her daughter. As she is on hemodialysis, the complications of this are likely to increase her anxiety. She will require significant social support to make this transition. Palliative care will continue to follow the patient during hospital course as condition evolves, to assist patient/decision-maker with understanding of their medical conditions, weighing benefits/burdens of treatment options, for clarification of goals of treatment. Additionally will assist with any symptoms of palliative concern. . Attestation To help prompt me to consider important information that might be impacting today's encounter and assessment, information from prior notes written by myself or my colleagues may have been "brought forward" into today's note. My signature on this note, however, is an attestation that I personally performed the exam, history, and/or decision-making noted today, and, unless otherwise indicated, the interactions with patient, family, and staff as well as the review of records all occurred today. I also attest that the listed assessment and stated plan reflect my best clinical judgment today based on the combination of historical information, prior notes, and today's exam/ interactions. When time spent is documented, it refers only to time spent today by the signer, or if indicated, combined time spent today by collaborating physician/nurse practitioner. . Sangeeta Johnson Jul 03, 2017 17:25
--- NOTE | 2017-07-03 18:28 | HHI.PR ---
Subjective Remarks 76 YOWF with VDRF,Ac renal Failure,DM, Met acidosis No Fever Alert awake feels weak, mild sob Breathing better Objective Vital Signs Vital Signs Date Time Temp Pulse Resp B/P (MAP) Pulse Ox O2 Delivery O2 Flow Rate FiO2 07/03/17 16:00 96.9 62 18 159/74 (102) 96 07/03/17 13:02 Nasal Cannula 2.00 07/03/17 12:00 97.1 59 18 168/72 (104) 96 07/03/17 08:00 96.2 79 18 127/78 (94) 96 07/03/17 04:00 95.8 54 18 140/67 (91) 91 07/03/17 00:00 96.3 68 17 140/66 (90) 91 07/02/17 20:00 95.2 77 17 149/67 (94) 92 07/02/17 19:20 94 Nasal Cannula 2.00 I/O 07/02/17 07/02/17 07/02/17 07/03/17 07/03/17 07/03/17 07:00 15:00 23:00 07:00 15:00 23:00 Intake Total 240 ml 360 ml 240 ml Output Total 0 ml 0 ml Balance 240 ml 360 ml 240 ml Intake Oral 240 ml 360 ml 240 ml Output Urine Total 0 ml 0 ml # Voids 0 0 # Bowel Movements 0 0 Result Diagram: 07/03/1763007/03/17630 Objective Remarks GENERAL: WBWN WF, On NC SKIN: Warm and dry. HEAD: Normocephalic. EYES: No scleral icterus. No injection or drainage. NECK: Supple, trachea midline. No JVD or lymphadenopathy. CARDIOVASCULAR: Regular rate and rhythm without murmurs, gallops, or rubs. RESPIRATORY: Breath sounds equal bilaterally. No accessory muscle use. GASTROINTESTINAL: Abdomen soft, non-tender, nondistended. MUSCULOSKELETAL: No cyanosis, or edema. BACK: Nontender without obvious deformity. No CVA tenderness. A/P Assessment and Plan VDRF, s/p Extubation COPD Ac renal Failure DM Nicotine use AF with RVR, converted to NSR PLAN: Supplement 02, keep sat 88-92% Monitor RYAN Tucker qid. Monitor H/H Jac Hammonds MD Jul 03, 2017 18:28
[2017-07-03] MEDS: ATORVASTATIN 40 MG TAB PO SCH (20:50)
[2017-07-04] VITALS (9 sets, daily range): BP systolic 121–173; BP diastolic 66–95; PULSE 52–112; RESP 18–22; TEMP 96–97.9; O2SAT 91–97
[2017-07-04] MEDS: INSULIN DETEMIR 100 UNITS/ML VIAL SQ SCH ×3 (00:11→21:45)
[2017-07-04] MEDS: INSULIN NovoLIN REGULAR SUPPLEMENTAL SCALE SQ SCH ×4 (00:12→17:42)
[2017-07-04] MEDS: DILTIAZEM HCL 60 MG TAB PO SCH ×4 (04:09→18:20)
[2017-07-04] MEDS: ISOSORBIDE MONONITRATE 30 MG TAB PO SCH (06:55)
[2017-07-04] MEDS: PROPRANOLOL HCL 10 MG TAB PO SCH ×3 (06:55→21:19)
[2017-07-04 08:50] LABS: ALKALINE PHOSPHATASE 146 U/L (45-117); ALT (GPT) 42 U/L (10-53); ANION GAP 17 MEQ/L (5-15); AST (GOT) 47 U/L (15-37); BICARBONATE 23.1 MEQ/L (21.0-32.0); BLOOD UREA NITROGEN 142 MG/DL (7-18); CHLORIDE 91 MEQ/L (98-107); GLOMERULAR FILTRATION RATE 7 ML/MIN (>89); SODIUM (NA) 131 MEQ/L (136-145)
[2017-07-04] MEDS: CALCIUM ACETATE 667 MG CAP PO SCH ×3 (09:00→17:43)
[2017-07-04] MEDS: VITAMIN B CMPLX/VITC/FOLIC AC CAP PO SCH (09:00)
[2017-07-04] MEDS: FERROUS SULFATE 325 MG (65 MG ELEMENTAL IRON) TAB PO SCH (09:00)
[2017-07-04] MEDS: SODIUM CHLORIDE 0.9% FLUSH 10 ML FLUSH IV FLUSH SCH ×3 (09:00→21:21)
[2017-07-04] MEDS ORDERED: INSULIN HUMAN REGULAR 1,000 UNITS/10 ML VIAL IV PUSH ONE (09:15)
[2017-07-04] MEDS ORDERED: RESP: ALBUTEROL CONC 2.5 MG/0.5 ML NEB INH ONE (09:15)
[2017-07-04] MEDS ORDERED: DEXTROSE 50% IN WATER 50 ML VIAL(D50) IV PUSH ONE (09:15)
--- NOTE | 2017-07-04 09:55 | RADRPT ---
EXAM DATE/TIME: 07/04/2017 08:08 [facility] COMPARISON: No previous studies available for comparison. INDICATIONS : Mesenteric ishchemia. MEDICAL HISTORY : Chronic obstructive pulmonary disease. Hypercholesterolemia. Hypertension.Renal failure. Diabetes. Li edwina disease. SURGICAL HISTORY : Cholecystectomy. Hysterectomy. Appendectomy. ENCOUNTER: Initial ACUITY: 1 day PAIN SCORE: 0/10 LOCATION: Abdomen. AORTA: SAGITTAL PROXIMAL: 49.3 cm/sec SAGITTAL MID: 105.6 cm/sec SAGITTAL DISTAL: UTO CELIAC ARTERY: CA ORIGIN: 124.8 cm/sec CA PROXIMAL: 147.7 cm/sec CA MID: 219.5 cm/sec CA DISTAL: 202.1 cm/sec HEPATIC ARTERY: 191.7 cm/sec SPLENIC ARTERY: 69.6 cm/sec SUPERIOR MESENTERIC ARTERY: SMA PROXIMAL: 111.9 cm/sec SMA MID: 88.0 cm/sec SMA DISTAL: 64.3 cm/sec FINDINGS: Celiac and SMA are patent and satisfactory in appearance. CONCLUSION: Negative Christ Feldman MD on July 04, 2017 at 9:51 Board Certified Radiologist. This report was verified electronically.
[2017-07-04] MEDS: ALBUMIN 25% INJ 100 ML IV PRN ×2 (10:13→10:26)
[2017-07-04 10:17] LABS: AUTOMATED NEUTROPHIL # 9.1 TH/MM3 (1.8-7.7); BASOPHIL % 0.2 % (0.0-2.0); LYMPH % 1.6 % (9.0-44.0); LYMPHOCYTE # 0.2 TH/MM3 (1.0-4.8); MEAN CELL VOLUME 87.7 FL (80.0-100.0); MEAN CORPUSCULAR HEMOGLOBIN 30.2 PG (27.0-34.0); MEAN CORPUSCULAR HGB CONC 34.4 % (32.0-36.0); MONO % 2.1 % (0.0-8.0); NEUT % 96.1 % (16.0-70.0); PLATELET COUNT 46 TH/MM3 (150-450); RED BLOOD COUNT 2.51 MIL/MM3 (4.00-5.30); RED CELL DISTRIBUTION WIDTH 17.1 % (11.6-17.2); WHITE BLOOD COUNT 9.5 TH/MM3 (4.0-11.0)
[2017-07-04 10:19] LABS: HEMO FLAGS AUTO DIFF
[2017-07-04 11:02] LABS: PLATELET ESTIMATE SMEAR LOW (NORMAL); PLATELET MORPHOLOGY NORMAL (NORMAL); SCAN/DIFF AUTO DIFF CONFIRMED
[2017-07-04] MEDS: EPOETIN ALFA 10,000 UNITS/ML VIAL IV PUSH PRN (12:25)
[2017-07-04] MEDS: GENTAMICIN SULFATE (DIALYSIS USE ONLY) 20 MG/2 ML VIAL OTHER PRN (12:50)
[2017-07-04] MEDS: methylPREDNISolone SOD SUCC 40 MG/1 ML VIAL IV PUSH SCH ×2 (13:36→21:18)
[2017-07-04] MEDS: PANTOPRAZOLE SODIUM 40 MG VIAL IV PUSH SCH ×2 (13:36→21:18)
--- NOTE | 2017-07-04 13:40 | PD.ONC.PN ---
Subjective Subjective Remarks Afebrile overnight. Patient resting in bed in nad. Just back from dialysis. Denies any obvious bleeding. Has not seen blood in bowel movements. Objective Data Date Time Temp Pulse Resp B/P (MAP) Pulse Ox O2 Delivery O2 Flow Rate FiO2 07/04/17 10:50 97 Nasal Cannula 2.00 07/04/17 08:34 97.9 53 18 141/66 (91) 93 07/04/17 08:00 53 07/04/17 08:00 94 Nasal Cannula 2.00 07/04/17 04:00 96.4 55 19 173/77 (109) 95 07/04/17 00:00 96.0 56 22 160/67 (98) 97 07/03/17 21:00 Nasal Cannula 2.00 40 07/03/17 20:40 97 Nasal Cannula 2.00 07/03/17 20:00 96.1 60 22 203/85 (124) 94 07/03/17 16:00 96.9 62 18 159/74 (102) 96 Result Diagram: 07/04/17 0945 07/04/17 0750 Laboratory Results Laboratory Tests Test 07/03/17 16:06 07/04/17 07:50 07/04/17 09:45 Prothrombin Time 10.8 SEC Prothromb Time International Ratio 1.0 RATIO Activated Partial Thromboplast Time 24.6 SEC Fibrinogen 223 mg/dL Lactate Dehydrogenase 359 U/L Blood Urea Nitrogen 142 MG/DL Creatinine 6.02 MG/DL Random Glucose 109 MG/DL Total Protein 5.5 GM/DL Albumin 3.1 GM/DL Calcium Level 8.0 MG/DL Alkaline Phosphatase 146 U/L Aspartate Amino Transf (AST/SGOT) 47 U/L Alanine Aminotransferase (ALT/SGPT) 42 U/L Total Bilirubin 1.0 MG/DL Sodium Level 131 MEQ/L Potassium Level 7.0 MEQ/L Chloride Level 91 MEQ/L Carbon Dioxide Level 23.1 MEQ/L Anion Gap 17 MEQ/L Estimat Glomerular Filtration Rate 7 ML/MIN White Blood Count 9.5 TH/MM3 Red Blood Count 2.51 MIL/MM3 Hemoglobin 7.6 GM/DL Hematocrit 22.0 % Mean Corpuscular Volume 87.7 FL Mean Corpuscular Hemoglobin 30.2 PG Mean Corpuscular Hemoglobin Concent 34.4 % Red Cell Distribution Width 17.1 % Platelet Count 46 TH/MM3 Mean Platelet Volume 9.5 FL Neutrophils (%) (Auto) 96.1 % Lymphocytes (%) (Auto) 1.6 % Monocytes (%) (Auto) 2.1 % Eosinophils (%) (Auto) 0.0 % Basophils (%) (Auto) 0.2 % Neutrophils # (Auto) 9.1 TH/MM3 Lymphocytes # (Auto) 0.2 TH/MM3 Monocytes # (Auto) 0.2 TH/MM3 Eosinophils # (Auto) 0.0 TH/MM3 Basophils # (Auto) 0.0 TH/MM3 CBC Comment AUTO DIFF Differential Comment AUTO DIFF CONFIRMED Platelet Estimate LOW Platelet Morphology Comment NORMAL Imaging Studies Last 24 hours Impressions Abdomen Ultrasound 07/04/17 0000 Signed Impressions: Service Date/Time: Tuesday, July 04, 2017 08:08 - CONCLUSION: Negative Christ Feldman MD Administered Medications Medications (Trade) Dose Ordered Sig/[place] Route PRN Reason Start Time Stop Time Status Last Admin Dose Admin Sodium Chloride (NS Flush) 2 ml UNSCH PRN IV FLUSH FLUSH AFTER USING IV ACCESS 05/30/17 21:45 06/23/17 05:39 Sodium Chloride (NS Flush) 2 ml BID IV FLUSH 05/31/17 09:00 07/03/17 21:44 Atorvastatin Calcium (Lipitor) 80 mg HS PO 05/31/17 21:00 Future hold 07/02/17 20:11 Ondansetron HCl (Zofran Inj) 4 mg Q6HR PRN IV PUSH NAUSEA OR VOMITING 05/31/17 13:00 06/29/17 19:53 Sodium Chloride 1,000 ml @ 0 mls/hr Q0M PRN OTHER For Prime & Rinse Back 06/01/17 09:07 06/24/17 09:31 Sodium Chloride 1,000 ml @ 200 mls/hr Q5H PRN IV WITH DIALYSIS 06/01/17 09:07 06/16/17 14:53 Mannitol (Mannitol Inj) 12.5 gm UNSCH PRN IV WITH DIALYSIS 06/01/17 09:15 06/02/17 08:06 Albumin Human 100 ml @ 60 mls/hr UNSCH PRN IV WITH DIALYSIS 06/01/17 09:15 07/04/17 10:26 Sodium Chloride (NS Flush) 5 ml UNSCH PRN IV FLUSH WITH DIALYSIS 06/01/17 09:15 06/24/17 09:31 Heparin Sodium (Porcine) (Heparin Inj) UNSCH PRN .XX WITH DIALYSIS 06/01/17 09:15 07/01/17 12:14 Gentamicin Sulfate (Gentamicin (Dialysis) Inj) 20 mg UNSCH PRN OTHER WITH DIALYSIS 06/01/17 09:15 07/04/17 12:50 Clonidine (Catapres) 0.1 mg UNSCH PRN PO for BP > 180/100 X 2 readings 06/01/17 09:15 06/22/17 02:28 Alprazolam (Xanax) 0.5 mg Q8H PRN PO MILD ANXIETY 06/06/17 13:00 06/30/17 21:04 Epoetin Geoffrey (Epogen Inj) 10,000 units UNSCH PRN IV PUSH WITH DIALYSIS 06/07/17 21:30 07/04/17 12:25 Vitamin B Complex/ Vit C/Folic Acid (Nephrocaps) 1 cap DAILY PO 06/08/17 09:00 07/03/17 08:57 Calcium Acetate (Phoslo) 1,334 mg TID PO 06/08/17 09:00 07/03/17 18:25 Ferrous Sulfate (Ferrous Sulfate) 325 mg DAILY PO 06/09/17 09:00 07/03/17 08:57 Loperamide HCl (Imodium Liq) 2 mg Q4H PRN PO DIARRHEA 06/10/17 13:00 06/21/17 20:35 Sodium Chloride (NS Flush) DAILY IV FLUSH 06/12/17 09:00 06/29/17 07:55 Budesonide/ Formoterol Fumarate (Symbicort 160-4.5 Inh) 2 puff Q12HR INH 06/17/17 09:00 07/03/17 21:43 Insulin Detemir (Levemir Inj) 25 units Q12HR SQ 06/18/17 09:00 Future hold 07/04/17 00:11 Albuterol Sulfate (Albuterol Neb) 2.5 mg Q2HR NEB PRN NEB dyspnea 06/22/17 06:45 06/27/17 19:52 Hydralazine HCl (Apresoline) 100 mg Q8HR PO 06/22/17 14:00 Future Hold 06/24/17 05:29 Isosorbide Mononitrate (Imdur) 30 mg DAILY@07 PO 06/22/17 07:00 07/04/17 06:55 Miscellaneous (Pill Splitter) 1 ea UNSCH PRN OTHER SEE LABEL COMMENTS 06/22/17 18:00 06/23/17 14:16 Methylprednisolone Sodium Succinate (SoluMEDROL INJ) 40 mg Q12H IV PUSH 06/28/17 10:00 07/03/17 21:44 Acetaminophen/ Hydrocodone Bitart ([place] 5-325 Mg) 2 tab Q6H PRN PO PAIN 6-10 06/28/17 08:15 07/01/17 00:07 Insulin Human Regular (NovoLIN R SUPPLEMENTAL SCALE) 1 Q6HR SQ 06/28/17 12:00 07/04/17 00:12 Pantoprazole Sodium (Protonix Inj) 40 mg Q12HR IV PUSH 06/28/17 13:00 07/03/17 21:44 Propranolol HCl (Inderal) 10 mg Q8HR PO 06/28/17 14:00 07/04/17 06:55 Diltiazem HCl (Cardizem) 60 mg Q6H PO 06/29/17 08:00 07/04/17 04:09 Objective Remarks GENERAL: Elderly female supine in bed in nad. SKIN: Warm and dry. HEAD: Normocephalic. EYES: No injection or drainage. NECK: Supple, trachea midline. CARDIOVASCULAR: +S1/S2 RESPIRATORY: anterior shaffer clear. GASTROINTESTINAL: Abdomen soft, non-tender, nondistended. EXTREMITIES: No cyanosis NEUROLOGICAL: awake and alert, normal speech. able to move extremities. Assessment/Plan Problem List: (1) DVT of upper extremity (deep vein thrombosis) ICD Codes: I82.629 - Acute embolism and thrombosis of deep veins of unspecified upper extremity Status: Acute Plan: Anticoagulation on hold due to acute GI bleed, melena/BRBPR, anemia and thrombocytopenia. LUE previous internal jugular vein thrombus, L cephalic vein persist on FU US today. (2) Acute blood loss anemia ICD Codes: D62 - Acute posthemorrhagic anemia Status: Acute Plan: Supportive transfusion. Likely etiology of anemia/thrombocytopenia. Work up negative: HIT neg, PAT neg, retic high c/w blood loss anemia. EGD/colonoscopy 06/19-->gastritis in the antrum. +large hiatal hernia. Colonoscopy showed ulcer in the cecum. These were treated with clips. There is no active bleeding. She does not have esophageal varices. EGD/colonoscopy 06/23--> erythematous gastritis in the gastric antrum; Severe diverticulosis in the sigmoid colon. 3 x 5cm colitis was found in the transverse colon; The mucosa was erythematous, friable, ulcerated and oozing blood; Injected with 5 cc of epinephrine, and ablated with APC. Good hemostasis obtained Bleeding scan (06/28/17)---> No definite evidence of active colonic GI bleeding is noted. 2 very tiny areas are identified the right midabdomen but they do not correspond with bowel activity. Assessment 76y/o female admitted with generalized weakness. Hematology consulted for anemia /thrombocytopenia. history of hypertension, diabetes, hyperlipidemia, ischemic heart disease, chronic kidney disease on hemodialysis. COPD Plan 1. continue to hold anticoagulation due to high bleeding risk, low platelets 2. monitor CBC Attending Statement The exam, history, and the medical decision-making described in the above note were completed with the assistance of the mid-level provider. I reviewed and agree with the findings presented. I attest that I had a [id number] encounter with the patient on the same day, and personally performed and documented my assessment and findings in the medical record. Hgb and platelet still trending down. Transfuse in AM if hgb <7.4. Problem Qualifiers (1) DVT of upper extremity (deep vein thrombosis): Qualified Codes: I82.622 - Acute embolism and thrombosis of deep veins of left upper extremity Leticia Telles Jul 04, 2017 13:40 Socorro Foster MD Jul 04, 2017 19:31
--- NOTE | 2017-07-04 14:11 | HHI.HCPN ---
Reason for visit a. To assist with evaluation and management of symptoms including: Dyspnea, anxiety b. To assist medical decision maker(s) with: better understanding of current medical conditions; weighing benefits/burdens of medical treatment options; making medical treatment decisions. Subjective/Interval History Having dialysis today. Discharge plans in process for rehabilitation. Patient stated that she is going to go home and pack up her belongings and moved to [place] to be near her daughter, however, has not been out of bed for the last 35 days and is refusing physical therapy. Interim history: * Laboratory: WBC 9.5, Hgb 7.6, HCT 22.0, platelets 46, sodium 131, potassium 7.0, BUN 142, creatinine 6.02, calcium 8.0. * Radiology: Abdominal ultrasound is negative. Consultations: * Hematology: Cleared patient to resume anticoagulation, she is considered high risk for rebleeding and for embolism. Remains thrombocytopenic with platelets at 46. HIT panel was negative. Bleeding scan was negative. * Gastroenterology: EGD 06/23 showed erythematous gastritis in the gastric antrum with severe diverticulosis in the sigmoid colon. 3 x 5 cm colitis was found in the transverse colon. Mucosa was erythematous, friable, ulcerated and oozing blood. Injected with 5 cc of epinephrine and ablated with APC with good hemostasis obtained. Continue Protonix. * Nephrology: Following for dialysis management. AV fistula placement planned as outpatient. Currently has tunneled catheter for dialysis. . Family/friend interactions Spoke with her daughter, Dorothea, at length regarding discharge plans. Advise daughter that patient states she is going home to pack up her belongings so she can move to [place] and that she has not been out of bed for over 30 days and has been refusing physical therapy. Case management is planning rehabilitation at discharge to include transportation to dialysis and chair time. The daughter states that she does plan to move her mother to [place] but was unaware of the difficulties coordinating a transfer given the dialysis scheduling and lack of train gateman follow-up in [place]. After discussion she will contact her primary care provider for a referral to train gateman who can coordinate with Dr. Lee when patient is transferred. She is also planning to evaluate local care facilities for possible placement when her mother arrives. She expresses significant concerns regarding her mother's lack of compliance with dialysis, diabetes management, dietary restrictions, smoking cessation and therapy recommendations. She is concerned that her mother is at a very high risk of falls if she does go back to her home. . Advance Directives Health Care Surrogate: Copy in medical record Advance Directive Specifics Health Care Surrogate(s): Dorothea Gonzalez, patient's daughter Objective Vital Signs Date Time Temp Pulse Resp B/P (MAP) Pulse Ox O2 Delivery O2 Flow Rate FiO2 07/04/17 13:37 96.9 52 18 155/95 (115) 92 07/04/17 10:50 97 Nasal Cannula 2.00 07/04/17 08:34 97.9 53 18 141/66 (91) 93 07/04/17 08:00 53 07/04/17 08:00 94 Nasal Cannula 2.00 07/04/17 04:00 96.4 55 19 173/77 (109) 95 07/04/17 00:00 96.0 56 22 160/67 (98) 97 07/03/17 21:00 Nasal Cannula 2.00 40 07/03/17 20:40 97 Nasal Cannula 2.00 07/03/17 20:00 96.1 60 22 203/85 (124) 94 07/03/17 16:00 96.9 62 18 159/74 (102) 96 Intake & Output 07/04/17 07/04/17 07:00 19:00 Intake Total 240 ml Balance 240 ml Intake Oral 240 ml # Bowel Movements 1 Physical Exam CONSTITUTIONAL/GENERAL: This is an elderly female patient, in no apparent distress. TUBES/LINES/DRAINS: PIV x1, Vas cath SKIN: No jaundice, rashes, or lesions. Right ACF bruise. Skin temperature appropriate. Not diaphoretic. Painful excoriation on coccyx. EYES: Pupils equal and round and reactive. Extraocular motions intact. No scleral icterus. No injection or drainage. Fundi not examined. ENT: Hearing grossly normal. Nose without bleeding or purulent drainage. Throat without visible erythema, exudates, masses, or lesions. CARDIOVASCULAR: Irregular rhythm, controlled rate without murmurs, gallops, or rubs. No JVD. Peripheral pulses symmetric. RESPIRATORY/CHEST: Symmetric, unlabored respirations. Clear to auscultation. Breath sounds equal bilaterally. No wheezes, rales, or rhonchi. GASTROINTESTINAL: Abdomen soft, non-tender, nondistended. No hepato-splenomegaly , or palpable masses. No guarding. Bowel sounds present. GENITOURINARY: Without palpable bladder distension. MUSCULOSKELETAL: Extremities without clubbing, cyanosis, or edema. No joint tenderness or effusion noted. No calf tenderness. No mottling or clubbing. NEUROLOGICAL: Sleepy, arousable and oriented 4, no obvious deficits. PSYCHIATRIC: Cooperative. . Diagnostic Tests Laboratory Laboratory Tests Test 07/02/17 06:30 07/03/17 06:31 07/03/17 16:06 07/04/17 07:50 White Blood Count 9.2 TH/MM3 (4.0-11.0) 9.6 TH/MM3 (4.0-11.0) Red Blood Count 2.90 MIL/MM3 (4.00-5.30) 2.73 MIL/MM3 (4.00-5.30) Hemoglobin 8.7 GM/DL (11.6-15.3) 8.3 GM/DL (11.6-15.3) Hematocrit 25.8 % (35.0-46.0) 24.2 % (35.0-46.0) Mean Corpuscular Volume 88.9 FL (80.0-100.0) 88.4 FL (80.0-100.0) Mean Corpuscular Hemoglobin 30.1 PG (27.0-34.0) 30.3 PG (27.0-34.0) Mean Corpuscular Hemoglobin Concent 33.9 % (32.0-36.0) 34.3 % (32.0-36.0) Red Cell Distribution Width 17.1 % (11.6-17.2) 17.5 % (11.6-17.2) Platelet Count 62 TH/MM3 (150-450) 57 TH/MM3 (150-450) Mean Platelet Volume 9.5 FL (7.0-11.0) 10.0 FL (7.0-11.0) Neutrophils (%) (Auto) 93.4 % (16.0-70.0) 94.2 % (16.0-70.0) Lymphocytes (%) (Auto) 1.8 % (9.0-44.0) 1.7 % (9.0-44.0) Monocytes (%) (Auto) 4.6 % (0.0-8.0) 3.7 % (0.0-8.0) Eosinophils (%) (Auto) 0.0 % (0.0-4.0) 0.0 % (0.0-4.0) Basophils (%) (Auto) 0.2 % (0.0-2.0) 0.4 % (0.0-2.0) Neutrophils # (Auto) 8.6 TH/MM3 (1.8-7.7) 9.1 TH/MM3 (1.8-7.7) Lymphocytes # (Auto) 0.2 TH/MM3 (1.0-4.8) 0.2 TH/MM3 (1.0-4.8) Monocytes # (Auto) 0.4 TH/MM3 (0-0.9) 0.4 TH/MM3 (0-0.9) Eosinophils # (Auto) 0.0 TH/MM3 (0-0.4) 0.0 TH/MM3 (0-0.4) Basophils # (Auto) 0.0 TH/MM3 (0-0.2) 0.0 TH/MM3 (0-0.2) CBC Comment AUTO DIFF AUTO DIFF Differential Total Cells Counted 100 Neutrophils % (Manual) 97 % (16-70) Band Neutrophils % 1 % (0-6) Monocytes % 1 % (0-8) Neutrophils # (Manual) 9.1 TH/MM3 (1.8-7.7) Myelocytes 1 % (0-0) Differential Comment FINAL DIFF MANUAL AUTO DIFF CONFIRMED Platelet Estimate LOW (NORMAL) LOW (NORMAL) Platelet Morphology Comment ENLARGED (NORMAL) ENLARGED (NORMAL) Basophilic Stippling FAINT (NORMAL) Ovalocytes 1+ (NORMAL) Blood Urea Nitrogen 77 MG/DL (7-18) 107 MG/DL (7-18) 142 MG/DL (7-18) Creatinine 4.14 MG/DL (0.50-1.00) 5.21 MG/DL (0.50-1.00) 6.02 MG/DL (0.50-1.00) Random Glucose 190 MG/DL (74-106) 147 MG/DL (74-106) 109 MG/DL (74-106) Calcium Level 8.3 MG/DL (8.5-10.1) 8.2 MG/DL (8.5-10.1) 8.0 MG/DL (8.5-10.1) Sodium Level 135 MEQ/L (136-145) 133 MEQ/L (136-145) 131 MEQ/L (136-145) Potassium Level 4.6 MEQ/L (3.5-5.1) 5.7 MEQ/L (3.5-5.1) 7.0 MEQ/L (3.5-5.1) Chloride Level 94 MEQ/L (98-107) 92 MEQ/L (98-107) 91 MEQ/L (98-107) Carbon Dioxide Level 27.3 MEQ/L (21.0-32.0) 27.9 MEQ/L (21.0-32.0) 23.1 MEQ/L (21.0-32.0) Anion Gap 14 MEQ/L (5-15) 13 MEQ/L (5-15) 17 MEQ/L (5-15) Estimat Glomerular Filtration Rate 10 ML/MIN (>89) 8 ML/MIN (>89) 7 ML/MIN (>89) Total Protein 5.8 GM/DL (6.4-8.2) 5.5 GM/DL (6.4-8.2) Albumin 3.4 GM/DL (3.4-5.0) 3.1 GM/DL (3.4-5.0) Phosphorus Level 6.4 MG/DL (2.5-4.9) Magnesium Level 2.0 MG/DL (1.5-2.5) Alkaline Phosphatase 151 U/L (45-117) 146 U/L (45-117) Aspartate Amino Transf (AST/SGOT) 42 U/L (15-37) 47 U/L (15-37) Alanine Aminotransferase (ALT/SGPT) 38 U/L (10-53) 42 U/L (10-53) Total Bilirubin 1.3 MG/DL (0.2-1.0) 1.0 MG/DL (0.2-1.0) Hemoglobin A1c 6.6 % (4.3-6.0) Free Thyroxine 0.59 NG/DL (0.76-1.46) Thyroid Stimulating Hormone 3rd Gen 0.372 uIU/ML (0.358-3.740) Prothrombin Time 10.8 SEC (9.8-11.6) Prothromb Time International Ratio 1.0 RATIO Activated Partial Thromboplast Time 24.6 SEC (24.3-30.1) Fibrinogen 223 mg/dL (227-377) Lactate Dehydrogenase 359 U/L (84-246) Test 07/04/17 09:45 White Blood Count 9.5 TH/MM3 (4.0-11.0) Red Blood Count 2.51 MIL/MM3 (4.00-5.30) Hemoglobin 7.6 GM/DL (11.6-15.3) Hematocrit 22.0 % (35.0-46.0) Mean Corpuscular Volume 87.7 FL (80.0-100.0) Mean Corpuscular Hemoglobin 30.2 PG (27.0-34.0) Mean Corpuscular Hemoglobin Concent 34.4 % (32.0-36.0) Red Cell Distribution Width 17.1 % (11.6-17.2) Platelet Count 46 TH/MM3 (150-450) Mean Platelet Volume 9.5 FL (7.0-11.0) Neutrophils (%) (Auto) 96.1 % (16.0-70.0) Lymphocytes (%) (Auto) 1.6 % (9.0-44.0) Monocytes (%) (Auto) 2.1 % (0.0-8.0) Eosinophils (%) (Auto) 0.0 % (0.0-4.0) Basophils (%) (Auto) 0.2 % (0.0-2.0) Neutrophils # (Auto) 9.1 TH/MM3 (1.8-7.7) Lymphocytes # (Auto) 0.2 TH/MM3 (1.0-4.8) Monocytes # (Auto) 0.2 TH/MM3 (0-0.9) Eosinophils # (Auto) 0.0 TH/MM3 (0-0.4) Basophils # (Auto) 0.0 TH/MM3 (0-0.2) CBC Comment AUTO DIFF Differential Comment AUTO DIFF CONFIRMED Platelet Estimate LOW (NORMAL) Platelet Morphology Comment NORMAL (NORMAL) Result Diagram: 07/04/17 0945 07/04/17 0750 Microbiology Microbiology Date/Time Source Procedure Growth Status 06/28/17 16:28 Blood Peripheral Aerobic Blood Culture - Final NO GROWTH IN 5 DAYS Complete 06/28/17 16:28 Blood Peripheral Anaerobic Blood Culture - Final NO GROWTH IN 5 DAYS Complete 06/13/17 18:31 Stool Stool Stool Occult Blood (MELISSA) - Final HEMOCCULT POSITIVE Complete 06/15/17 06:50 Nasal Aspirate Influenza Types A,B Antigen (MELISSA) - Final NEGATIVE FOR FLU A AND B ANTIGEN.... Complete 06/11/17 20:33 Urine Catheterized Urine Urine Culture - Final Lacey Glabrata Lacey Albicans Complete Imaging Last Impressions Abdomen Ultrasound 07/04/17 0000 Signed Impressions: Service Date/Time: Tuesday, July 04, 2017 08:08 - CONCLUSION: Negative Christ Feldman MD Lower Extremity Ultrasound 07/03/17 0000 Signed Impressions: Service Date/Time: Monday, July 03, 2017 13:54 - CONCLUSION: Normal examination. Christ Feldman MD Upper Extremity Ultrasound 06/28/17 0000 Signed Impressions: Service Date/Time: Wednesday, June 28, 2017 08:00 - CONCLUSION: 1. No evidence for soft tissue abscess as questioned. 2. Thrombosed left cephalic vein in the antecubital fossa and proximal forearm. Berny Marie MD Liver Ultrasound 06/28/17 0000 Signed Impressions: Service Date/Time: Wednesday, June 28, 2017 07:48 - CONCLUSION: Echogenic liver possibly fatty infiltration. Tiny amount of fluid adjacent to the liver. Small bilateral pleural effusions. Status post cholecystectomy. Winston Li MD GI Bleed Scan Nuclear Medicine 06/28/17 0000 Signed Impressions: Service Date/Time: Wednesday, June 28, 2017 12:31 - CONCLUSION: No definite evidence of active colonic GI bleeding is noted. 2 very tiny areas are identified the right midabdomen but they do not correspond with bowel activity. Winston Li MD Chest X-Ray 06/28/17 0000 Signed Impressions: Service Date/Time: Wednesday, June 28, 2017 14:56 - CONCLUSION: Right IJ dual-lumen catheter in excellent position. Mild pulmonary vascular congestion with persistent cardiomegaly is unchanged Winston Li MD Central Venous Line 06/22/17 0000 Signed Impressions: Service Date/Time: June 00:00 - CONCLUSION: Uncomplicated catheter removal. Robles Corral MD Catheter Placement X-Ray 06/22/17 0000 Signed Impressions: Service Date/Time: June 14:04 - CONCLUSION: Uncomplicated PermaCath placement as above. Robles Corral MD Renal Ultrasound 05/31/17 0000 Signed Impressions: Service Date/Time: Wednesday, May 31, 2017 08:54 - CONCLUSION: 1. Abnormal appearance to the left kidney with diminutive size and poor delineation of the parenchymal architecture. 2. No gross abnormality seen in the right kidney. Aramis Scott MD Procedures 06/01-endotracheal intubation. 06/01-hemodialysis catheter placement in the right IJ vein 06/12-endotracheal intubation 06/12-left IJ central venous catheter placement 06/19-colonoscopy showing ulcers in the cecum, ascending colon, transverse colon and sigmoid diverticulosis. Biopsies taken. 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 She has been twice, in the first and was then during her second marriage. She moved to [place] in 1993 and lives in her own home since that time. She has 1 daughter, Dorothea Gonzalez who lives in [place]. Spiritual: She is a non-practicing Religion who would accept furnace loader visits. Legal: She is currently able to make decisions for herself, however has designated her daughter Dorothea as her healthcare surrogate. Ethical issues impacting care: None noted at this time . Important Contacts Daughter-Dorothea Gonzalez Prognosis Her prognosis is guarded. She has been intubated twice and has required BiPAP to prevent a third intubation. She has smoked for approximately 60 years is morbidly obese and sedentary. She is now developed end-stage renal disease and is on dialysis. She has uncontrolled diabetes mellitus and anemia. She was found to have multiple ulcers on colonoscopy and is now on Procrit for combination anemia of chronic disease and GI blood loss. Given her debility from extended hospitalization and baseline decline she is at significant risk for falls, poor self-care and recurrent hospitalizations. . Code Status: Alternative Code Plan PLAN: Legal decision maker: She is currently able to make her own decisions but has designated her daughter, Dorothea Gonzalez as the healthcare surrogate decision- maker. Goals: Aggressive short of CPR. CODE STATUS: Alternative code, intubation only. SYMPTOMS: * Dyspnea: She remains on oxygen at this time. She states that she is not going to smoke anymore and this was encouraged. Her daughter is concerned that if she does return to her home, she will return to smoking. She is currently receiving albuterol, Solu-Medrol, Symbicort, Ativan. She remains at risk for continued respiratory compromise. * Anxiety: She has a chronic baseline anxiety for which she took Xanax at home. She is very happy that she has quit smoking and is showing no significant anxiety at this time. She is at risk for anxiety secondary to her high bleeding risk. She states she does not want to go to a SNF, however, she has not been out of bed since she was hospitalized. Case management planning for upcoming discharge. Patient's ultimate goal is to move to [place] near her daughter. As she is on hemodialysis, the complications of this are likely to increase her anxiety. She will require significant social support to make this transition. Palliative care will continue to follow the patient during hospital course as condition evolves, to assist patient/decision-maker with understanding of their medical conditions, weighing benefits/burdens of treatment options, for clarification of goals of treatment. Additionally will assist with any symptoms of palliative concern. . Attestation To help prompt me to consider important information that might be impacting today's encounter and assessment, information from prior notes written by myself or my colleagues may have been "brought forward" into today's note. My signature on this note, however, is an attestation that I personally performed the exam, history, and/or decision-making noted today, and, unless otherwise indicated, the interactions with patient, family, and staff as well as the review of records all occurred today. I also attest that the listed assessment and stated plan reflect my best clinical judgment today based on the combination of historical information, prior notes, and today's exam/ interactions. When time spent is documented, it refers only to time spent today by the signer, or if indicated, combined time spent today by collaborating physician/nurse practitioner. . Sangeeta Johnson Jul 04, 2017 14:11
--- NOTE | 2017-07-04 14:30 | HHI.PR ---
Subjective Remarks Potassium was significantly elevated at 7.0 today. Acute treatments were ordered but patient went to dialysis clinically so treatments occurred there. No arrhythmias. Objective Vital Signs Date Time Temp Pulse Resp B/P (MAP) Pulse Ox O2 Delivery O2 Flow Rate FiO2 07/04/17 13:37 96.9 52 18 155/95 (115) 92 07/04/17 10:50 97 Nasal Cannula 2.00 07/04/17 08:34 97.9 53 18 141/66 (91) 93 07/04/17 08:00 53 07/04/17 08:00 94 Nasal Cannula 2.00 07/04/17 04:00 96.4 55 19 173/77 (109) 95 07/04/17 00:00 96.0 56 22 160/67 (98) 97 07/03/17 21:00 Nasal Cannula 2.00 40 07/03/17 20:40 97 Nasal Cannula 2.00 07/03/17 20:00 96.1 60 22 203/85 (124) 94 07/03/17 16:00 96.9 62 18 159/74 (102) 96 I/O 07/03/17 07/03/17 07/03/17 07/04/17 07/04/17 07/04/17 07:00 15:00 23:00 07:00 15:00 23:00 Intake Total 240 ml 1440 ml Output Total 0 ml Balance 240 ml 1440 ml Intake Oral 240 ml 1440 ml Output Urine Total 0 ml # Voids 0 # Bowel Movements 0 2 Result Diagram: 07/04/17 0945 07/04/17 0750 Objective Remarks GENERAL: NAD, A&Ox3 HEAD: Normocephalic. NECK: Supple, trachea midline. No lymphadenopathy. EYES: No scleral icterus. No injection or drainage. CARDIOVASCULAR: Irregularly irregular rate with tachycardic rhythm, without murmurs, gallops, or rubs. RESPIRATORY: Breath sounds equal bilaterally. No accessory muscle use. GASTROINTESTINAL: Abdomen soft, non-tender, nondistended. MUSCULOSKELETAL: No cyanosis, or edema. SKIN: Warm and dry. NEURO: No focal neurological deficitis. A/P Problem List: (1) Atrial fibrillation with RVR ICD Code: I48.91 - Unspecified atrial fibrillation Status: Resolved (2) COPD exacerbation ICD Code: J44.1 - Chronic obstructive pulmonary disease with (acute) exacerbation Status: Acute (3) Acute renal failure ICD Code: N17.9 - Acute kidney failure, unspecified Status: Acute (4) Chronic kidney disease (CKD) ICD Code: N18.9 - Chronic kidney disease, unspecified (5) Paroxysmal atrial fibrillation ICD Code: I48.0 - Paroxysmal atrial fibrillation Status: Acute Assessment and Plan Assessment and plan 76-year-old female admitted secondary to pneumonia with acute renal failure. Presently on chronic hemodialysis. Labs reviewed. Potassium elevations are present. Dialysis provided today. Continue to monitor potassium levels for stability prior to consideration for discharge. A. fib RVR Baseline paroxysmal A. fib Now rate controlled Continue Cardizem Follow on telemetry Community-acquired pneumonia COPD exacerbation Treatment completed No further exacerbation Status post extubation 06/06/17 Continue oxygen as needed Continue Spiriva Continue Symbicort Chronic kidney disease stage IV End-stage renal disease Continue on hemodialysis Nephrology following Outpatient arrangements are in process R Permacath placed 06/22 Continue calcium acetate 1334 mg 3 times a day Gen. anxiety disorder Continue as needed Xanax Anemia Related to chronic kidney disease Continue Epogen Continue iron Diabetes mellitus type 2 Follow blood sugars Insulin sliding scale Diabetic diet DVT Prophylaxis Heparin Discharge Planning halfway facility for OT and PT Outpatient Dialysis anticipated Problem Qualifiers (1) Acute renal failure: Qualified Codes: N17.9 - Acute kidney failure, unspecified (2) Chronic kidney disease (CKD): Qualified Codes: N18.5 - Chronic kidney disease, stage 5 Laci Ibarra MD Jul 04, 2017 14:30
--- NOTE | 2017-07-04 14:39 | HHI.GIFU ---
Subjective Remarks dozing, but responds to verbal stimuli. HD today Hungry, No nausea /vomiting Objective Vitals I&O Vital Signs Date Time Temp Pulse Resp B/P (MAP) Pulse Ox O2 Delivery O2 Flow Rate FiO2 07/04/17 13:37 96.9 52 18 155/95 (115) 92 07/04/17 10:50 97 Nasal Cannula 2.00 07/04/17 08:34 97.9 53 18 141/66 (91) 93 07/04/17 08:00 53 07/04/17 08:00 94 Nasal Cannula 2.00 07/04/17 04:00 96.4 55 19 173/77 (109) 95 07/04/17 00:00 96.0 56 22 160/67 (98) 97 07/03/17 21:00 Nasal Cannula 2.00 40 07/03/17 20:40 97 Nasal Cannula 2.00 07/03/17 20:00 96.1 60 22 203/85 (124) 94 07/03/17 16:00 96.9 62 18 159/74 (102) 96 I/O 07/03/17 07/03/17 07/03/17 07/04/17 07/04/17 07/04/17 07:00 15:00 23:00 07:00 15:00 23:00 Intake Total 240 ml 1440 ml Output Total 0 ml Balance 240 ml 1440 ml Intake Oral 240 ml 1440 ml Output Urine Total 0 ml # Voids 0 # Bowel Movements 0 2 Laboratory Laboratory Tests Test 07/03/17 16:06 07/04/17 07:50 07/04/17 09:45 Prothrombin Time 10.8 Prothromb Time International Ratio 1.0 Activated Partial Thromboplast Time 24.6 Fibrinogen 223 Lactate Dehydrogenase 359 Blood Urea Nitrogen 142 Creatinine 6.02 Random Glucose 109 Total Protein 5.5 Albumin 3.1 Calcium Level 8.0 Alkaline Phosphatase 146 Aspartate Amino Transf (AST/SGOT) 47 Alanine Aminotransferase (ALT/SGPT) 42 Total Bilirubin 1.0 Sodium Level 131 Potassium Level 7.0 Chloride Level 91 Carbon Dioxide Level 23.1 Anion Gap 17 Estimat Glomerular Filtration Rate 7 White Blood Count 9.5 Red Blood Count 2.51 Hemoglobin 7.6 Hematocrit 22.0 Mean Corpuscular Volume 87.7 Mean Corpuscular Hemoglobin 30.2 Mean Corpuscular Hemoglobin Concent 34.4 Red Cell Distribution Width 17.1 Platelet Count 46 Mean Platelet Volume 9.5 Neutrophils (%) (Auto) 96.1 Lymphocytes (%) (Auto) 1.6 Monocytes (%) (Auto) 2.1 Eosinophils (%) (Auto) 0.0 Basophils (%) (Auto) 0.2 Neutrophils # (Auto) 9.1 Lymphocytes # (Auto) 0.2 Monocytes # (Auto) 0.2 Eosinophils # (Auto) 0.0 Basophils # (Auto) 0.0 CBC Comment AUTO DIFF Differential Comment AUTO DIFF CONFIRMED Platelet Estimate LOW Platelet Morphology Comment NORMAL Date/Time Source Procedure Growth Status 06/28/17 16:28 Blood Peripheral Aerobic Blood Culture - Final NO GROWTH IN 5 DAYS Complete 06/28/17 16:28 Blood Peripheral Anaerobic Blood Culture - Final NO GROWTH IN 5 DAYS Complete 06/13/17 18:31 Stool Stool Stool Occult Blood (MELISSA) - Final HEMOCCULT POSITIVE Complete 06/15/17 06:50 Nasal Aspirate Influenza Types A,B Antigen (MELISSA) - Final NEGATIVE FOR FLU A AND B ANTIGEN.... Complete 06/11/17 20:33 Urine Catheterized Urine Urine Culture - Final Lacey Glabrata Lacey Albicans Complete Imaging Last Impressions Abdomen Ultrasound 07/04/17 0000 Signed Impressions: Service Date/Time: Tuesday, July 04, 2017 08:08 - CONCLUSION: Negative Christ Feldman MD Lower Extremity Ultrasound 07/03/17 0000 Signed Impressions: Service Date/Time: Monday, July 03, 2017 13:54 - CONCLUSION: Normal examination. Christ Feldman MD Upper Extremity Ultrasound 06/28/17 0000 Signed Impressions: Service Date/Time: Wednesday, June 28, 2017 08:00 - CONCLUSION: 1. No evidence for soft tissue abscess as questioned. 2. Thrombosed left cephalic vein in the antecubital fossa and proximal forearm. Berny Marie MD Liver Ultrasound 06/28/17 0000 Signed Impressions: Service Date/Time: Wednesday, June 28, 2017 07:48 - CONCLUSION: Echogenic liver possibly fatty infiltration. Tiny amount of fluid adjacent to the liver. Small bilateral pleural effusions. Status post cholecystectomy. Winston Li MD GI Bleed Scan Nuclear Medicine 06/28/17 0000 Signed Impressions: Service Date/Time: Wednesday, June 28, 2017 12:31 - CONCLUSION: No definite evidence of active colonic GI bleeding is noted. 2 very tiny areas are identified the right midabdomen but they do not correspond with bowel activity. Winston Li MD Chest X-Ray 06/28/17 0000 Signed Impressions: Service Date/Time: Wednesday, June 28, 2017 14:56 - CONCLUSION: Right IJ dual-lumen catheter in excellent position. Mild pulmonary vascular congestion with persistent cardiomegaly is unchanged Winston Li MD Central Venous Line 06/22/17 0000 Signed Impressions: Service Date/Time: June 00:00 - CONCLUSION: Uncomplicated catheter removal. Robles Corral MD Catheter Placement X-Ray 06/22/17 0000 Signed Impressions: Service Date/Time: June 14:04 - CONCLUSION: Uncomplicated PermaCath placement as above. Robles Corral MD Renal Ultrasound 05/31/17 0000 Signed Impressions: Service Date/Time: Wednesday, May 31, 2017 08:54 - CONCLUSION: 1. Abnormal appearance to the left kidney with diminutive size and poor delineation of the parenchymal architecture. 2. No gross abnormality seen in the right kidney. Aramis Scott MD Physical Exam HEENT: Normocephalic; atraumatic; color pale, no juandice PEARLA CHEST: Resp. even, unlabored, No SOB. rm air, volumes low. CARDIAC: Irregular, 50s ABDOMEN: Soft, taut, nontender to light palpation; bowel sounds soft and active, in all four quadrants. SKIN: pale , warm, dry, no rash EXTREMITIES: trace edema LE Assessment and Plan Plan ASSESSMENT: - GIB Rectal bleeding. S/P EGD/Colonoscopy (06/19/17)---> 1. Gastritis antrum -biopsy duodenum normal-biopsy 2. Retroflexed views revealed a hiatal hernia 1. Ulcer cecum-visible vessel- 2 clips applied ulcer in ascending colon-biopsy ulcer in transverse colon-biopsy diverticulosis sigmoid,descending 2. Retroflexed views revealed internal hemorrhoids 3. Retroflexed views revealed medium internal hemorrhoids 4. Revealed external hemorrhoids 5. Revealed decreased sphincter tone. She then had melena and underwent EGD with control of bleeding (06/23/17)---> Severe gastropathy with significant areas and they fundus of the stomach oozing blood this was cauterized by heat with reasonable control of the bleeding but there was significant surface area that has potential for rebleeding Patient has gastritis in the antrum also. She was transfused with PRBC and FFP and BB was recommended as soon as possible to try to reduce portal htn. She was then transferred to [facility] for active GI bleeding. The plan was for a GI bleeding scan and possible egd/colonoscopy yesterday, but she did not take prep. S/P Bleeding scan ()---> No definite evidence of active colonic GI bleeding is noted. 2 very tiny areas are identified the right midabdomen but they do not correspond with bowel activity. Rectal bag with small amount liquid brown stool. HH now 7.6 On BB. 07/04, hgb 7.6, no abd pain or active beeding, HD today - Cecal ulcer, s/p clipping. - Gastropathy. PPI, BB - Fatty liver, likely cirrhosis. US 06/28/17 with echogenic liver possibly fatty infiltration. Tiny amount of fluid adjacent to the liver. Small bilateral pleural effusions, s/p cholecystectomy. - Thrombocytopenia/Coagulopathy. Plt 46 - DVT Left IJ vein, superficial thrombus left cephalic vein. - Atrial fibrillation, HR 50s today - COPD/HCAP. Per CCM - ARF, HD per nephrology. 3X week, HD today - HTN, Hyperlipidemia, CKD, DM, Anxiety per attending. - Bowel Regimin BM 07/04 X 2. No active bleeding PLAN: - Protonix IV - Zofran as needed -Senokot/Glycerin supp. as needed -Imodium as needed - Monitor labs, recheck in am - Transfuse as necessary - Supportive care - Notify GI of active bleeding,high risk from rebleeding colon lesions. -Encourage ambulation , tires easily -Heart healthy renal diet. - Further recommendations to follow based on results of above - Pt seen and exmained by Dr. Moseley and myself and this note is written on his behalf Namita Harris Jul 04, 2017 14:39
[2017-07-04 16:24] LABS: HEMATOCRIT 22.3 % (35.0-46.0)
[2017-07-04 16:25] LABS: REVIEW FLAG FINAL
--- NOTE | 2017-07-04 18:56 | HHI.PR ---
Subjective Remarks 76 YOWF with VDRF,Ac renal Failure,DM, Met acidosis No Fever Alert awake feels weak, mild sob Breathing better No new complaint Objective Vital Signs Vital Signs Date Time Temp Pulse Resp B/P (MAP) Pulse Ox O2 Delivery O2 Flow Rate FiO2 07/04/17 16:34 96.3 81 18 142/80 (100) 95 07/04/17 13:37 96.9 52 18 155/95 (115) 92 07/04/17 10:50 97 Nasal Cannula 2.00 07/04/17 08:34 97.9 53 18 141/66 (91) 93 07/04/17 08:00 53 07/04/17 08:00 94 Nasal Cannula 2.00 07/04/17 04:00 96.4 55 19 173/77 (109) 95 07/04/17 00:00 96.0 56 22 160/67 (98) 97 07/03/17 21:00 Nasal Cannula 2.00 40 07/03/17 20:40 97 Nasal Cannula 2.00 07/03/17 20:00 96.1 60 22 203/85 (124) 94 I/O 07/03/17 07/03/17 07/03/17 07/04/17 07/04/17 07/04/17 07:00 15:00 23:00 07:00 15:00 23:00 Intake Total 240 ml 1440 ml Output Total 0 ml Balance 240 ml 1440 ml Intake Oral 240 ml 1440 ml Output Urine Total 0 ml # Voids 0 # Bowel Movements 0 2 Result Diagram: 07/04/17 1530 07/04/17 1530 Objective Remarks GENERAL: WBWN WF, On NC SKIN: Warm and dry. HEAD: Normocephalic. EYES: No scleral icterus. No injection or drainage. NECK: Supple, trachea midline. No JVD or lymphadenopathy. CARDIOVASCULAR: Regular rate and rhythm without murmurs, gallops, or rubs. RESPIRATORY: Breath sounds equal bilaterally. No accessory muscle use. GASTROINTESTINAL: Abdomen soft, non-tender, nondistended. MUSCULOSKELETAL: No cyanosis, or edema. BACK: Nontender without obvious deformity. No CVA tenderness. A/P Assessment and Plan VDRF, s/p Extubation COPD Ac renal Failure DM Nicotine use AF with RVR, converted to NSR PLAN: Supplement 02, keep sat 88-92% Monitor BS Brandonbs qid. Monitor H/H DC plans underway. Jac Hammonds MD Jul 04, 2017 18:56
--- NOTE | 2017-07-04 19:19 | HHI.NPPN ---
Subjective History of Present Illness 76-year-old female with past medical history of hypertension, diabetes mellitus, hyperlipidemia, ischemic heart disease, chronic kidney disease, chronic obstructive pulmonary disease was admitted because of generalized weakness, decreased urine output. I he was called to see the patient for elevated BUN and creatinine. The patient is known to me from before. She has been following with me in the office and last time I saw her was on May 04 and at that time her creatinine was 2.2 with given the GFR of 19-20 she had advanced stage IV chronic kidney disease most likely because of diabetic nephropathy. Additional Remarks Patient is alert, started eating better, no SOB, with nasal cannula. Review of Systems General General Remarks Intubated and sedated. Objective Data Data 07/04/17 07/05/17 18:59 06:59 Intake Total 480 ml Balance 480 ml Intake Oral 480 ml # Bowel Movements 3 Vital Signs Date Time Temp Pulse Resp B/P (MAP) Pulse Ox O2 Delivery O2 Flow Rate FiO2 07/04/17 16:34 96.3 81 18 142/80 (100) 95 07/04/17 13:37 96.9 52 18 155/95 (115) 92 07/04/17 10:50 97 Nasal Cannula 2.00 07/04/17 08:34 97.9 53 18 141/66 (91) 93 07/04/17 08:00 53 07/04/17 08:00 94 Nasal Cannula 2.00 07/04/17 04:00 96.4 55 19 173/77 (109) 95 07/04/17 00:00 96.0 56 22 160/67 (98) 97 07/03/17 21:00 Nasal Cannula 2.00 40 07/03/17 20:40 97 Nasal Cannula 2.00 07/03/17 20:00 96.1 60 22 203/85 (124) 94 -: 07/04/17 1530 07/04/17 1530 Physical Exam General Appearance: No Acute Distress, Comfortable Eyes Eye Exam: Pupils Equal Throat Throat Exam: Oral Mucosa [place] & Moist Neck Neck Exam: Neck Supple Pulmonary Resp Exam: Breath Sounds Equal, Rhonchi, Decreased Bases, Diminished Breath Sounds, Poor Inspiratory Effort Cardiology CV Exam: Regular, Normal Sinus Rhythm Gastrointestinal/Abdomen GI Exam: Soft, Non-Tender, Bowel Sounds Present, Distended Extremeties Extremities Exam: Trace Edema Neurologic Neuro Exam: Alert, Awake, Oriented Psychiatric Psych Exam: Appropriate Responses Assessment/Plan Assessment Summary: MIRACLE/Acute Renal Failure, Hypertension, CKD Stage IV Problem List: (1) Chronic kidney disease (CKD) ICD Codes: N18.9 - Chronic kidney disease, unspecified (2) Oliguria ICD Codes: R34 - Anuria and oliguria (3) Diarrhea ICD Codes: R19.7 - Diarrhea, unspecified (4) Metabolic acidosis ICD Codes: E87.2 - Acidosis Status: Acute (5) Uremia ICD Codes: N19 - Unspecified kidney failure Status: Acute (6) Acute renal failure ICD Codes: N17.9 - Acute kidney failure, unspecified Status: Acute Plan Patient has advance stage 4 chronic kidney disease, approach stage 5. Started on HD. Patient has COPD with high CO2 and developing SOB off and on. Off vent doing better BP is stable. Has tunneled catheter for HD Vascular called, they will do AVF as out patient. HD done yesterday. Out patient HD arrangement. Add Nepro, and Keflex for cellulitis at left arm IV site. Problem Qualifiers (1) Chronic kidney disease (CKD): Qualified Codes: N18.5 - Chronic kidney disease, stage 5 (2) Acute renal failure: Qualified Codes: N17.9 - Acute kidney failure, unspecified Lexy Lee MD Jul 04, 2017 19:19
[2017-07-04] MEDS: ATORVASTATIN 40 MG TAB PO SCH (21:18)
[2017-07-04] MEDS: BUDESONIDE-FORMOTEROL 160/4.5 MCG INHALER INH SCH (21:21)
[2017-07-04] MEDS: CEPHALEXIN MONOHYDRATE 250 MG CAP PO SCH (21:44)
[2017-07-04] MEDS: ALPRAZolam 0.25 MG TAB PO PRN (21:50)
[2017-07-05] VITALS (16 sets, daily range): BP systolic 128–154; BP diastolic 64–75; PULSE 60–105; RESP 17–20; TEMP 95.6–96.9; O2SAT 90–96
[2017-07-05] MEDS: DILTIAZEM HCL 60 MG TAB PO SCH ×4 (00:47→20:56)
[2017-07-05] MEDS: INSULIN NovoLIN REGULAR SUPPLEMENTAL SCALE SQ SCH ×4 (00:58→18:01)
[2017-07-05] MEDS ORDERED: diphenhydrAMINE HCL 25 MG CAP PO PRN (06:00)
[2017-07-05] MEDS ORDERED: ACETAMINOPHEN 325 MG TAB PO PRN (06:00)
[2017-07-05 06:13] LABS: AUTOMATED NEUTROPHIL # 7.7 TH/MM3 (1.8-7.7); BASOPHIL % 0.3 % (0.0-2.0); HEMATOCRIT 20.8 % (35.0-46.0); LYMPH % 1.7 % (9.0-44.0); LYMPHOCYTE # 0.1 TH/MM3 (1.0-4.8); MEAN CELL VOLUME 88.4 FL (80.0-100.0); MEAN CORPUSCULAR HEMOGLOBIN 29.2 PG (27.0-34.0); MONO % 2.9 % (0.0-8.0); NEUT % 95.1 % (16.0-70.0); PLATELET COUNT 45 TH/MM3 (150-450); RED BLOOD COUNT 2.35 MIL/MM3 (4.00-5.30); RED CELL DISTRIBUTION WIDTH 17.8 % (11.6-17.2)
[2017-07-05 06:18] LABS: HEMO FLAGS AUTO DIFF
[2017-07-05 06:22] LABS: WHITE BLOOD COUNT 8.1 TH/MM3 (4.0-11.0)
[2017-07-05] MEDS: ISOSORBIDE MONONITRATE 30 MG TAB PO SCH (06:34)
[2017-07-05] MEDS: PROPRANOLOL HCL 10 MG TAB PO SCH ×3 (06:34→20:56)
[2017-07-05 06:45] LABS: ALKALINE PHOSPHATASE 170 U/L (45-117); ALT (GPT) 51 U/L (10-53); ANION GAP 12 MEQ/L (5-15); AST (GOT) 58 U/L (15-37); BICARBONATE 26.5 MEQ/L (21.0-32.0); BLOOD UREA NITROGEN 88 MG/DL (7-18); CHLORIDE 96 MEQ/L (98-107); GLOMERULAR FILTRATION RATE 10 ML/MIN (>89); POTASSIUM 4.7 MEQ/L (3.5-5.1); SODIUM (NA) 134 MEQ/L (136-145); TOTAL BILIRUBIN ADULT 1.4 MG/DL (0.2-1.0)
[2017-07-05] MEDS: FERROUS SULFATE 325 MG (65 MG ELEMENTAL IRON) TAB PO SCH (08:14)
[2017-07-05] MEDS: PANTOPRAZOLE SODIUM 40 MG VIAL IV PUSH SCH ×2 (08:15→21:09)
[2017-07-05] MEDS: VITAMIN B CMPLX/VITC/FOLIC AC CAP PO SCH (08:15)
[2017-07-05] MEDS: CALCIUM ACETATE 667 MG CAP PO SCH ×3 (08:15→18:01)
[2017-07-05] MEDS: INSULIN DETEMIR 100 UNITS/ML VIAL SQ SCH ×2 (08:16→21:18)
[2017-07-05] MEDS: SODIUM CHLORIDE 0.9% FLUSH 10 ML FLUSH IV FLUSH SCH ×3 (08:16→21:09)
[2017-07-05] MEDS: BUDESONIDE-FORMOTEROL 160/4.5 MCG INHALER INH SCH ×2 (08:17→20:56)
[2017-07-05] MEDS: methylPREDNISolone SOD SUCC 40 MG/1 ML VIAL IV PUSH SCH ×2 (08:31→20:56)
[2017-07-05] MEDS: CEPHALEXIN MONOHYDRATE 250 MG CAP PO SCH ×2 (08:31→20:56)
[2017-07-05 09:06] LABS: PLATELET ESTIMATE SMEAR LOW (NORMAL); PLATELET MORPHOLOGY NORMAL (NORMAL); SCAN/DIFF AUTO DIFF CONFIRMED
--- NOTE | 2017-07-05 11:17 | HHI.NPPN ---
Subjective History of Present Illness 76-year-old female with past medical history of hypertension, diabetes mellitus, hyperlipidemia, ischemic heart disease, chronic kidney disease, chronic obstructive pulmonary disease was admitted because of generalized weakness, decreased urine output. I he was called to see the patient for elevated BUN and creatinine. The patient is known to me from before. She has been following with me in the office and last time I saw her was on May 04 and at that time her creatinine was 2.2 with given the GFR of 19-20 she had advanced stage IV chronic kidney disease most likely because of diabetic nephropathy. Additional Remarks Patient is alert, no SOB, with nasal cannula, not in distress. Review of Systems General General Remarks Intubated and sedated. Objective Data Data Vital Signs Date Time Temp Pulse Resp B/P (MAP) Pulse Ox O2 Delivery O2 Flow Rate FiO2 07/05/17 10:10 92 Nasal Cannula 2.00 07/05/17 08:00 96.0 68 18 154/71 (98) 92 07/05/17 05:12 96.4 77 20 133/67 (89) 90 07/05/17 04:00 62 07/05/17 01:48 96.9 86 20 128/64 (85) 92 07/05/17 00:06 102 07/04/17 22:05 97.6 112 20 121/77 (92) 91 07/04/17 21:15 91 Nasal Cannula 2.00 07/04/17 19:27 106 07/04/17 16:34 96.3 81 18 142/80 (100) 95 07/04/17 13:37 96.9 52 18 155/95 (115) 92 -: 07/05/17 0420 07/05/17 0420 Physical Exam General Appearance: No Acute Distress, Comfortable Eyes Eye Exam: Pupils Equal Throat Throat Exam: Oral Mucosa [place] & Moist Neck Neck Exam: Neck Supple Pulmonary Resp Exam: Breath Sounds Equal, Rhonchi, Decreased Bases, Diminished Breath Sounds, Poor Inspiratory Effort Cardiology CV Exam: Regular, Normal Sinus Rhythm Gastrointestinal/Abdomen GI Exam: Soft, Non-Tender, Bowel Sounds Present, Distended Extremeties Extremities Exam: Trace Edema Neurologic Neuro Exam: Alert, Awake, Oriented Psychiatric Psych Exam: Appropriate Responses Assessment/Plan Assessment Summary: [place]LE/Acute Renal Failure, Hypertension, CKD Stage IV Problem List: (1) Chronic kidney disease (CKD) ICD Codes: N18.9 - Chronic kidney disease, unspecified (2) Oliguria ICD Codes: R34 - Anuria and oliguria (3) Diarrhea ICD Codes: R19.7 - Diarrhea, unspecified (4) Metabolic acidosis ICD Codes: E87.2 - Acidosis Status: Acute (5) Uremia ICD Codes: N19 - Unspecified kidney failure Status: Acute (6) Acute renal failure ICD Codes: N17.9 - Acute kidney failure, unspecified Status: Acute Plan Patient has advance stage 4 chronic kidney disease, approach stage 5. Started on HD. Patient has COPD with high CO2 and developing SOB off and on. Off vent doing better BP is stable. Has tunneled catheter for HD Vascular called, they will do AVF as out patient. HD done yesterday. Out patient HD arrangement. On Nepro, and Keflex for cellulitis at left arm IV site. Hgb. dropped, for transfusion. HD will be in AM. Problem Qualifiers (1) Chronic kidney disease (CKD): Qualified Codes: N18.5 - Chronic kidney disease, stage 5 (2) Acute renal failure: Qualified Codes: N17.9 - Acute kidney failure, unspecified Lexy Lee MD Jul 05, 2017 11:17
--- NOTE | 2017-07-05 12:11 | PD.ONC.PN ---
Subjective Subjective Remarks Afebrile overnight. Patient resting in bed in nad. Denies bleeding. Denies dizziness. Objective Data Date Time Temp Pulse Resp B/P (MAP) Pulse Ox O2 Delivery O2 Flow Rate FiO2 07/05/17 11:52 96.0 60 17 145/70 94 07/05/17 11:29 96.0 63 18 149/72 90 07/05/17 10:10 92 Nasal Cannula 2.00 07/05/17 08:00 96.0 68 18 154/71 (98) 92 07/05/17 05:12 96.4 77 20 133/67 (89) 90 07/05/17 04:00 62 07/05/17 01:48 96.9 86 20 128/64 (85) 92 07/05/17 00:06 102 07/04/17 22:05 97.6 112 20 121/77 (92) 91 07/04/17 21:15 91 Nasal Cannula 2.00 07/04/17 19:27 106 07/04/17 16:34 96.3 81 18 142/80 (100) 95 07/04/17 13:37 96.9 52 18 155/95 (115) 92 07/05/17 07/05/17 07/05/17 07:00 15:00 23:00 Intake Total 240 ml 2 ml Balance 240 ml 2 ml Result Diagram: 07/05/1741907/05/17 0420 Laboratory Results Laboratory Tests Test 07/04/17 15:30 07/05/17 04:20 Hemoglobin 7.4 GM/DL 6.9 GM/DL Hematocrit 22.3 % 20.8 % Potassium Level 4.1 MEQ/L 4.7 MEQ/L White Blood Count 8.1 TH/MM3 Red Blood Count 2.35 MIL/MM3 Mean Corpuscular Volume 88.4 FL Mean Corpuscular Hemoglobin 29.2 PG Mean Corpuscular Hemoglobin Concent 33.0 % Red Cell Distribution Width 17.8 % Platelet Count 45 TH/MM3 Mean Platelet Volume 9.1 FL Neutrophils (%) (Auto) 95.1 % Lymphocytes (%) (Auto) 1.7 % Monocytes (%) (Auto) 2.9 % Eosinophils (%) (Auto) 0.0 % Basophils (%) (Auto) 0.3 % Neutrophils # (Auto) 7.7 TH/MM3 Lymphocytes # (Auto) 0.1 TH/MM3 Monocytes # (Auto) 0.2 TH/MM3 Eosinophils # (Auto) 0.0 TH/MM3 Basophils # (Auto) 0.0 TH/MM3 CBC Comment AUTO DIFF Differential Comment AUTO DIFF CONFIRMED Platelet Estimate LOW Platelet Morphology Comment NORMAL Basophilic Stippling MOD Blood Urea Nitrogen 88 MG/DL Creatinine 4.28 MG/DL Random Glucose 137 MG/DL Total Protein 6.1 GM/DL Albumin 3.8 GM/DL Calcium Level 8.0 MG/DL Alkaline Phosphatase 170 U/L Aspartate Amino Transf (AST/SGOT) 58 U/L Alanine Aminotransferase (ALT/SGPT) 51 U/L Total Bilirubin 1.4 MG/DL Sodium Level 134 MEQ/L Chloride Level 96 MEQ/L Carbon Dioxide Level 26.5 MEQ/L Anion Gap 12 MEQ/L Estimat Glomerular Filtration Rate 10 ML/MIN Administered Medications Medications (Trade) Dose Ordered Sig/[place] Route PRN Reason Start Time Stop Time Status Last Admin Dose Admin Sodium Chloride (NS Flush) 2 ml UNSCH PRN IV FLUSH FLUSH AFTER USING IV ACCESS 05/30/17 21:45 06/23/17 05:39 Sodium Chloride (NS Flush) 2 ml BID IV FLUSH 05/31/17 09:00 07/05/17 08:16 Atorvastatin Calcium (Lipitor) 80 mg HS PO 05/31/17 21:00 Future hold 07/04/17 21:18 Ondansetron HCl (Zofran Inj) 4 mg Q6HR PRN IV PUSH NAUSEA OR VOMITING 05/31/17 13:00 06/29/17 19:53 Sodium Chloride 1,000 ml @ 0 mls/hr Q0M PRN OTHER For Prime & Rinse Back 06/01/17 09:07 06/24/17 09:31 Sodium Chloride 1,000 ml @ 200 mls/hr Q5H PRN IV WITH DIALYSIS 06/01/17 09:07 06/16/17 14:53 Mannitol (Mannitol Inj) 12.5 gm UNSCH PRN IV WITH DIALYSIS 06/01/17 09:15 06/02/17 08:06 Albumin Human 100 ml @ 60 mls/hr UNSCH PRN IV WITH DIALYSIS 06/01/17 09:15 07/04/17 10:26 Sodium Chloride (NS Flush) 5 ml UNSCH PRN IV FLUSH WITH DIALYSIS 06/01/17 09:15 11/18/17 09:31 Heparin Sodium (Porcine) (Heparin Inj) UNSCH PRN .XX WITH DIALYSIS 06/01/17 09:15 07/01/17 12:14 Gentamicin Sulfate (Gentamicin (Dialysis) Inj) 20 mg UNSCH PRN OTHER WITH DIALYSIS 06/01/17 09:15 07/04/17 12:50 Diphenhydramine HCl (Benadryl) 25 mg UNSCH PRN PO for hives/itching/anaphylaxis 06/01/17 09:15 07/05/17 10:55 Clonidine (Catapres) 0.1 mg UNSCH PRN PO for BP > 180/100 X 2 readings 06/01/17 09:15 06/22/17 02:28 Sennosides (Senokot) 17.2 mg Q12H PRN PO Moderate constipation 06/01/17 18:30 07/04/17 13:56 Alprazolam (Xanax) 0.5 mg Q8H PRN PO MILD ANXIETY 06/06/17 13:00 07/04/17 21:50 Epoetin Geoffrey (Epogen Inj) 10,000 units UNSCH PRN IV PUSH WITH DIALYSIS 06/07/17 21:30 07/04/17 12:25 Vitamin B Complex/ Vit C/Folic Acid (Nephrocaps) 1 cap DAILY PO 06/08/17 09:00 07/05/17 08:15 Calcium Acetate (Phoslo) 1,334 mg TID PO 06/08/17 09:00 07/05/17 08:15 Ferrous Sulfate (Ferrous Sulfate) 325 mg DAILY PO 06/09/17 09:00 07/05/17 08:14 Loperamide HCl (Imodium Liq) 2 mg Q4H PRN PO DIARRHEA 06/10/17 13:00 06/21/17 20:35 Sodium Chloride (NS Flush) DAILY IV FLUSH 06/12/17 09:00 07/05/17 08:16 Budesonide/ Formoterol Fumarate (Symbicort 160-4.5 Inh) 2 puff Q12HR INH 06/17/17 09:00 07/05/17 08:17 Insulin Detemir (Levemir Inj) 25 units Q12HR SQ 06/18/17 09:00 Future hold 07/05/17 08:16 Albuterol Sulfate (Albuterol Neb) 2.5 mg Q2HR NEB PRN NEB dyspnea 06/22/17 06:45 06/27/17 19:52 Hydralazine HCl (Apresoline) 100 mg Q8HR PO 06/22/17 14:00 Future Hold 06/24/17 05:29 Isosorbide Mononitrate (Imdur) 30 mg DAILY@07 PO 06/22/17 07:00 07/05/17 06:34 Miscellaneous (Pill Splitter) 1 ea UNSCH PRN OTHER SEE LABEL COMMENTS 06/22/17 18:00 06/23/17 14:16 Methylprednisolone Sodium Succinate (SoluMEDROL INJ) 40 mg Q12H IV PUSH 06/28/17 10:00 07/05/17 08:31 Acetaminophen/ Hydrocodone Bitart ([place] 5-325 Mg) 2 tab Q6H PRN PO PAIN 6-10 06/28/17 08:15 07/01/17 00:07 Insulin Human Regular (NovoLIN R SUPPLEMENTAL SCALE) 1 Q6HR SQ 06/28/17 12:00 07/05/17 00:58 Pantoprazole Sodium (Protonix Inj) 40 mg Q12HR IV PUSH 06/28/17 13:00 07/05/17 08:15 Propranolol HCl (Inderal) 10 mg Q8HR PO 06/28/17 14:00 07/05/17 06:34 Diltiazem HCl (Cardizem) 60 mg Q6H PO 06/29/17 08:00 07/05/17 08:14 Cephalexin Monohydrate (Keflex) 250 mg BID PO 07/04/17 21:00 07/05/17 08:31 Objective Remarks GENERAL: Elderly female sitting up in bed in [facility]. SKIN: Warm and dry. HEAD: Normocephalic. EYES: No injection or drainage. NECK: Supple, trachea midline. CARDIOVASCULAR: +S1/S2 RESPIRATORY: anterior shaffer clear. GASTROINTESTINAL: Abdomen soft, non-tender, nondistended. EXTREMITIES: No cyanosis NEUROLOGICAL: awake and alert. moving extremities. Assessment/Plan Problem List: (1) DVT of upper extremity (deep vein thrombosis) ICD Codes: I82.629 - Acute embolism and thrombosis of deep veins of unspecified upper extremity Status: Acute Plan: Anticoagulation on hold due to acute GI bleed, melena/BRBPR, anemia and thrombocytopenia. LUE previous internal jugular vein thrombus, L cephalic vein persist on FU US today. (2) Acute blood loss anemia ICD Codes: D62 - Acute posthemorrhagic anemia Status: Acute Plan: Supportive transfusion. Likely etiology of anemia/thrombocytopenia. Work up negative: HIT neg, PAT neg, retic high c/w blood loss anemia. EGD/colonoscopy 06/19-->gastritis in the antrum. +large hiatal hernia. Colonoscopy showed ulcer in the cecum. These were treated with clips. There is no active bleeding. She does not have esophageal varices. EGD/colonoscopy 06/23--> erythematous gastritis in the gastric antrum; Severe diverticulosis in the sigmoid colon. 3 x 5cm colitis was found in the transverse colon; The mucosa was erythematous, friable, ulcerated and oozing blood; Injected with 5 cc of epinephrine, and ablated with APC. Good hemostasis obtained Bleeding scan (06/28/17)---> No definite evidence of active colonic GI bleeding is noted. 2 very tiny areas are identified the right midabdomen but they do not correspond with bowel activity. Assessment 76y/o female admitted with generalized weakness. Hematology consulted for anemia /thrombocytopenia. history of hypertension, diabetes, hyperlipidemia, ischemic heart disease, chronic kidney disease on hemodialysis. COPD Plan 1. give pRBC today 2. monitor CBC 3. hold anticoagulation Attending Statement The exam, history, and the medical decision-making described in the above note were completed with the assistance of the mid-level provider. I reviewed and agree with the findings presented. I attest that I had a [id number] encounter with the patient on the same day, and personally performed and documented my assessment and findings in the medical record. Noted hgb 6.9, s/p 1UPRBC, no sign fluid overload. Thrombocytopenia persist due to consumption. Suspect on going slow possibly intermittent bleed. Continue transfusion support, pt already had multiple GI procedure. Problem Qualifiers (1) DVT of upper extremity (deep vein thrombosis): Qualified Codes: I82.622 - Acute embolism and thrombosis of deep veins of left upper extremity Leticia Telles Jul 05, 2017 12:11 Socorro Foster MD Jul 05, 2017 18:20
--- NOTE | 2017-07-05 12:17 | HHI.GIFU ---
Subjective Remarks Resting in bed. No obvious active bleeding. Denies any abdominal pain. No diarrhea. Getting blood transfusion. (Melanie Plata) Objective Vitals I&O Vital Signs Date Time Temp Pulse Resp B/P (MAP) Pulse Ox O2 Delivery O2 Flow Rate FiO2 07/05/17 11:52 96.0 60 17 145/70 94 07/05/17 11:29 96.0 63 18 149/72 90 07/05/17 10:10 92 Nasal Cannula 2.00 07/05/17 08:00 96.0 68 18 154/71 (98) 92 07/05/17 05:12 96.4 77 20 133/67 (89) 90 07/05/17 04:00 62 07/05/17 01:48 96.9 86 20 128/64 (85) 92 07/05/17 00:06 102 07/04/17 22:05 97.6 112 20 121/77 (92) 91 07/04/17 21:15 91 Nasal Cannula 2.00 07/04/17 19:27 106 07/04/17 16:34 96.3 81 18 142/80 (100) 95 07/04/17 13:37 96.9 52 18 155/95 (115) 92 I/O 07/04/17 07/04/17 07/04/17 07/05/17 07/05/17 07/05/17 07:00 15:00 23:00 07:00 15:00 23:00 Intake Total 480 ml 240 ml 2 ml Balance 480 ml 240 ml 2 ml Intake Oral 480 ml 240 ml Blood Product IV Normal Saline Flush 2 ml # Voids 3 # Bowel Movements 3 Laboratory Laboratory Tests Test 07/04/17 15:30 07/05/17 04:20 Hemoglobin 7.4 6.9 Hematocrit 22.3 20.8 Potassium Level 4.1 4.7 White Blood Count 8.1 Red Blood Count 2.35 Mean Corpuscular Volume 88.4 Mean Corpuscular Hemoglobin 29.2 Mean Corpuscular Hemoglobin Concent 33.0 Red Cell Distribution Width 17.8 Platelet Count 45 Mean Platelet Volume 9.1 Neutrophils (%) (Auto) 95.1 Lymphocytes (%) (Auto) 1.7 Monocytes (%) (Auto) 2.9 Eosinophils (%) (Auto) 0.0 Basophils (%) (Auto) 0.3 Neutrophils # (Auto) 7.7 Lymphocytes # (Auto) 0.1 Monocytes # (Auto) 0.2 Eosinophils # (Auto) 0.0 Basophils # (Auto) 0.0 CBC Comment AUTO DIFF Differential Comment AUTO DIFF CONFIRMED Platelet Estimate LOW Platelet Morphology Comment NORMAL Basophilic Stippling MOD Blood Urea Nitrogen 88 Creatinine 4.28 Random Glucose 137 Total Protein 6.1 Albumin 3.8 Calcium Level 8.0 Alkaline Phosphatase 170 Aspartate Amino Transf (AST/SGOT) 58 Alanine Aminotransferase (ALT/SGPT) 51 Total Bilirubin 1.4 Sodium Level 134 Chloride Level 96 Carbon Dioxide Level 26.5 Anion Gap 12 Estimat Glomerular Filtration Rate 10 Date/Time Source Procedure Growth Status 06/28/17 16:28 Blood Peripheral Aerobic Blood Culture - Final NO GROWTH IN 5 DAYS Complete 06/28/17 16:28 Blood Peripheral Anaerobic Blood Culture - Final NO GROWTH IN 5 DAYS Complete 06/13/17 18:31 Stool Stool Stool Occult Blood (MELISSA) - Final HEMOCCULT POSITIVE Complete 06/15/17 06:50 Nasal Aspirate Influenza Types A,B Antigen (MELISSA) - Final NEGATIVE FOR FLU A AND B ANTIGEN.... Complete 06/11/17 20:33 Urine Catheterized Urine Urine Culture - Final Lacey Glabrata Lacey Albicans Complete Imaging Last Impressions Abdomen Ultrasound 07/04/17 0000 Signed Impressions: Service Date/Time: Tuesday, July 04, 2017 08:08 - CONCLUSION: Negative Christ Feldman MD Lower Extremity Ultrasound 07/03/17 0000 Signed Impressions: Service Date/Time: Monday, July 03, 2017 13:54 - CONCLUSION: Normal examination. Christ Feldman MD Upper Extremity Ultrasound 06/28/17 0000 Signed Impressions: Service Date/Time: Wednesday, June 28, 2017 08:00 - CONCLUSION: 1. No evidence for soft tissue abscess as questioned. 2. Thrombosed left cephalic vein in the antecubital fossa and proximal forearm. Berny Marie MD Liver Ultrasound 06/28/17 0000 Signed Impressions: Service Date/Time: Wednesday, June 28, 2017 07:48 - CONCLUSION: Echogenic liver possibly fatty infiltration. Tiny amount of fluid adjacent to the liver. Small bilateral pleural effusions. Status post cholecystectomy. Winston Li MD GI Bleed Scan Nuclear Medicine 06/28/17 0000 Signed Impressions: Service Date/Time: Wednesday, June 28, 2017 12:31 - CONCLUSION: No definite evidence of active colonic GI bleeding is noted. 2 very tiny areas are identified the right midabdomen but they do not correspond with bowel activity. Winston Li MD Chest X-Ray 06/28/17 0000 Signed Impressions: Service Date/Time: Wednesday, June 28, 2017 14:56 - CONCLUSION: Right IJ dual-lumen catheter in excellent position. Mild pulmonary vascular congestion with persistent cardiomegaly is unchanged Winsotn Li MD Central Venous Line 06/22/17 0000 Signed Impressions: Service Date/Time: June 00:00 - CONCLUSION: Uncomplicated catheter removal. Robles Corral MD Catheter Placement X-Ray 06/22/17 0000 Signed Impressions: Service Date/Time: June 14:04 - CONCLUSION: Uncomplicated PermaCath placement as above. Robles Corral MD Renal Ultrasound 05/31/17 0000 Signed Impressions: Service Date/Time: Wednesday, May 31, 2017 08:54 - CONCLUSION: 1. Abnormal appearance to the left kidney with diminutive size and poor delineation of the parenchymal architecture. 2. No gross abnormality seen in the right kidney. Aramis Scott MD Physical Exam HEENT: Normocephalic; atraumatic; color pale, no juandice PEARLA CHEST: Resp. even, unlabored, No SOB. rm air, volumes low. CARDIAC: Irregular ABDOMEN: Soft, taut, nontender to light palpation; bowel sounds soft and active, in all four quadrants. SKIN: multiple ecchymotic areas EXTREMITIES: trace edema LE (Melanie PlataP) Assessment and Plan Plan ASSESSMENT: - GIB Rectal bleeding. S/P EGD/Colonoscopy (06/19/17)---> 1. Gastritis antrum -biopsy duodenum normal-biopsy 2. Retroflexed views revealed a hiatal hernia 1. Ulcer cecum-visible vessel- 2 clips applied ulcer in ascending colon-biopsy ulcer in transverse colon-biopsy diverticulosis sigmoid,descending 2. Retroflexed views revealed internal hemorrhoids 3. Retroflexed views revealed medium internal hemorrhoids 4. Revealed external hemorrhoids 5. Revealed decreased sphincter tone. She then had melena and underwent EGD with control of bleeding (06/23/17)---> Severe gastropathy with significant areas and they fundus of the stomach oozing blood this was cauterized by heat with reasonable control of the bleeding but there was significant surface area that has potential for rebleeding Patient has gastritis in the antrum also. She was transfused with PRBC and FFP and BB was recommended as soon as possible to try to reduce portal htn. She was then transferred to [facility] for active GI bleeding. The plan was for a GI bleeding scan and possible egd/colonoscopy yesterday, but she did not take prep. S/P Bleeding scan ()---> No definite evidence of active colonic GI bleeding is noted. 2 very tiny areas are identified the right midabdomen but they do not correspond with bowel activity. Rpt. EGD/Colonoscopy (06/30/17)----> There was LA Class B esophagitis noted, there was erythematous gastritis in the gastric antrum, normal duodenal mucosa, retroflexed views revealed no abnormalities. Severe diverticulosis was noted in the sigmoid colon, 3 x 5 cm colitis was found in the transverse colon; the mucosa was erythematous, friable, ulcerated and oozing blood, not clear what this area is? possible area of previous endoscopic therapy. Injected with 5 cc of epinephrine, and ablated with APC. Good hemostasis obtained, retroflexed revealed internal hemorrhoids, medium internal hemorrhoids, external hemorrhoids. Pathology gastric antral mucosa with reactive features and focal calcifications, neg. for H. pylori. No obvious active bleeding, but HH continues to slowly trend down. HH 6.9/20.8 today, getting PRBC. Anticoagulation on hold. Pt is a high risk for rebleed. - Cecal ulcer, s/p clipping. - Gastropathy. PPI, BB - Fatty liver, likely cirrhosis. US 06/28/17 with echogenic liver possibly fatty infiltration. Tiny amount of fluid adjacent to the liver. Small bilateral pleural effusions, s/p cholecystectomy. - Thrombocytopenia/Coagulopathy. - DVT Left IJ vein, superficial thrombus left cephalic vein. Hematology following, anticoagulation on hold for high risk of rebleeding. - Atrial fibrillation, - COPD/HCAP. Per [facility] - ARF, HD per nephrology. 3X week, HD today - HTN, Hyperlipidemia, CKD, DM, Anxiety per attending. PLAN: - PAT - Monitor HH - Transfuse as necessary - Cont. PPI - Cont. Propranolol - Zofran as needed - Hematology following - Supportive care - Notify GI of active bleeding - Pt is a high risk for rebleeding from colon lesions. - Further recommendations to follow based on results of above - Angiogram with embolization if further bleeding - Rpt. Colonoscopy 3 months, EGD 1 year. - Pt seen and exmained by Dr. Moseley and myself and this note is written on his behalf (Melanie Plata) Physician Comments agree with above gi will sign off if active bleeding reconsult please and order stat bleeding scan pathology stomach-benign (Danna Moseley MD) Melanie Plata Jul 05, 2017 12:17 Danna Moseley MD Jul 05, 2017 18:37
--- NOTE | 2017-07-05 14:30 | HHI.PR ---
Subjective Remarks Potassium is improved status post dialysis. Anemia is present this morning and progressive. Hemoglobin now at 6.9. Transfusion ordered. Objective Vital Signs Date Time Temp Pulse Resp B/P (MAP) Pulse Ox O2 Delivery O2 Flow Rate FiO2 07/05/17 11:52 96.0 60 17 145/70 94 07/05/17 11:45 96.0 60 17 145/70 (95) 95 07/05/17 11:30 96.0 63 18 149/72 (97) 90 07/05/17 11:29 96.0 63 18 149/72 90 07/05/17 10:10 92 Nasal Cannula 2.00 07/05/17 08:00 96.0 68 18 154/71 (98) 92 07/05/17 05:12 96.4 77 20 133/67 (89) 90 07/05/17 04:00 62 07/05/17 01:48 96.9 86 20 128/64 (85) 92 07/05/17 00:06 102 07/04/17 22:05 97.6 112 20 121/77 (92) 91 07/04/17 21:15 91 Nasal Cannula 2.00 07/04/17 19:27 106 07/04/17 16:34 96.3 81 18 142/80 (100) 95 I/O 07/04/17 07/04/17 07/04/17 07/05/17 07/05/17 07/05/17 07:00 15:00 23:00 07:00 15:00 23:00 Intake Total 480 ml 240 ml 2 ml Balance 480 ml 240 ml 2 ml Intake Oral 480 ml 240 ml Blood Product IV Normal Saline Flush 2 ml # Voids 3 # Bowel Movements 3 Result Diagram: 07/05/1741907/05/17419 Objective Remarks GENERAL: NAD, A&Ox3 HEAD: Normocephalic. NECK: Supple, trachea midline. No lymphadenopathy. EYES: No scleral icterus. No injection or drainage. CARDIOVASCULAR: Irregularly irregular rate with tachycardic rhythm, without murmurs, gallops, or rubs. RESPIRATORY: Breath sounds equal bilaterally. No accessory muscle use. GASTROINTESTINAL: Abdomen soft, non-tender, nondistended. MUSCULOSKELETAL: No cyanosis, or edema. SKIN: Warm and dry. NEURO: No focal neurological deficitis. A/P Problem List: (1) Atrial fibrillation with RVR ICD Code: I48.91 - Unspecified atrial fibrillation Status: Resolved (2) COPD exacerbation ICD Code: J44.1 - Chronic obstructive pulmonary disease with (acute) exacerbation Status: Acute (3) Acute renal failure ICD Code: N17.9 - Acute kidney failure, unspecified Status: Acute (4) Chronic kidney disease (CKD) ICD Code: N18.9 - Chronic kidney disease, unspecified (5) Paroxysmal atrial fibrillation ICD Code: I48.0 - Paroxysmal atrial fibrillation Status: Acute Assessment and Plan Assessment and plan 76-year-old female admitted secondary to pneumonia with acute renal failure. Presently on chronic hemodialysis. Labs reviewed. Stabilized potassium today. Anemia is present. Transfusion of packed red blood cells will occur today. Continue to monitor labs. Labs ordered. A. fib RVR Baseline paroxysmal A. fib Now rate controlled Continue Cardizem Follow on telemetry Community-acquired pneumonia COPD exacerbation Treatment completed No further exacerbation Status post extubation 06/06/17 Continue oxygen as needed Continue Spiriva Continue Symbicort Chronic kidney disease stage IV End-stage renal disease Continue on hemodialysis Nephrology following Outpatient arrangements are in process R Permacath placed 06/22 Continue calcium acetate 1334 mg 3 times a day Gen. anxiety disorder Continue as needed Xanax Anemia Related to chronic kidney disease Continue Epogen Continue iron Diabetes mellitus type 2 Follow blood sugars Insulin sliding scale Diabetic diet DVT Prophylaxis Heparin Discharge Planning [facility] facility for OT and PT Outpatient Dialysis anticipated Problem Qualifiers (1) Acute renal failure: Qualified Codes: N17.9 - Acute kidney failure, unspecified (2) Chronic kidney disease (CKD): Qualified Codes: N18.5 - Chronic kidney disease, stage 5 Laci Ibarra MD Jul 05, 2017 14:30
--- NOTE | 2017-07-05 19:50 | HHI.PR ---
Subjective Remarks 76 YOWF with VDRF,Ac renal Failure,DM, Met acidosis No Fever Alert awake feels weak, mild sob Breathing better Dcreased H/H Objective Vital Signs Vital Signs Date Time Temp Pulse Resp B/P (MAP) Pulse Ox O2 Delivery O2 Flow Rate FiO2 07/05/17 16:00 95.6 74 17 141/72 (95) 95 07/05/17 11:52 96.0 60 17 145/70 94 07/05/17 11:45 96.0 60 17 145/70 (95) 95 07/05/17 11:30 96.0 63 18 149/72 (97) 90 07/05/17 11:29 96.0 63 18 149/72 90 07/05/17 10:10 92 Nasal Cannula 2.00 07/05/17 08:00 96.0 68 18 154/71 (98) 92 07/05/17 05:12 96.4 77 20 133/67 (89) 90 07/05/17 04:00 62 07/05/17 01:48 96.9 86 20 128/64 (85) 92 07/05/17 00:06 102 07/04/17 22:05 97.6 112 20 121/77 (92) 91 07/04/17 21:15 91 Nasal Cannula 2.00 I/O 07/04/17 07/04/17 07/04/17 07/05/17 07/05/17 07/05/17 07:00 15:00 23:00 07:00 15:00 23:00 Intake Total 480 ml 240 ml 2 ml 885 ml Balance 480 ml 240 ml 2 ml 885 ml Intake Oral 480 ml 240 ml 480 ml Packed Cells 400 ml Blood Product IV Normal Saline Flush 2 ml 5 ml # Voids 3 0 # Bowel Movements 3 1 Result Diagram: 07/05/1741907/05/17419 Objective Remarks GENERAL: WBWN WF, On NC SKIN: Warm and dry. HEAD: Normocephalic. EYES: No scleral icterus. No injection or drainage. NECK: Supple, trachea midline. No JVD or lymphadenopathy. CARDIOVASCULAR: Regular rate and rhythm without murmurs, gallops, or rubs. RESPIRATORY: Breath sounds equal bilaterally. No accessory muscle use. GASTROINTESTINAL: Abdomen soft, non-tender, nondistended. MUSCULOSKELETAL: No cyanosis, or edema. BACK: Nontender without obvious deformity. No CVA tenderness. A/P Assessment and Plan VDRF, s/p Extubation COPD Ac renal Failure DM Nicotine use AF with RVR, converted to NSR PLAN: Supplement 02, keep sat 88-92% Monitor RYAN Tucker qid. Monitor H/H PRBC Jac Hammonds MD Jul 05, 2017 19:50
[2017-07-05] MEDS: ATORVASTATIN 40 MG TAB PO SCH (20:56)
[2017-07-06] VITALS (10 sets, daily range): BP systolic 122–164; BP diastolic 59–90; PULSE 51–85; RESP 17–20; TEMP 95.5–96.4; O2SAT 95–99
[2017-07-06 00:21] LABS: AUTOMATED NEUTROPHIL # 10.7 TH/MM3 (1.8-7.7); BASOPHIL % 0.2 % (0.0-2.0); EOSINOPHIL % 0.1 % (0.0-4.0); HEMATOCRIT 27.4 % (35.0-46.0); LYMPH % 1.8 % (9.0-44.0); LYMPHOCYTE # 0.2 TH/MM3 (1.0-4.8); MEAN CELL VOLUME 91.1 FL (80.0-100.0); MEAN CORPUSCULAR HEMOGLOBIN 31.1 PG (27.0-34.0); MEAN CORPUSCULAR HGB CONC 34.1 % (32.0-36.0); MONO % 2.9 % (0.0-8.0); PLATELET COUNT 49 TH/MM3 (150-450); RED BLOOD COUNT 3.01 MIL/MM3 (4.00-5.30); RED CELL DISTRIBUTION WIDTH 17.3 % (11.6-17.2); WHITE BLOOD COUNT 11.2 TH/MM3 (4.0-11.0)
[2017-07-06 00:23] LABS: HEMO FLAGS AUTO DIFF
[2017-07-06 00:36] LABS: MAGNESIUM 2.1 MG/DL (1.5-2.5); POTASSIUM 5.3 MEQ/L (3.5-5.1)
[2017-07-06 00:58] LABS: ACANTHOCYTES OCC (NORMAL)
[2017-07-06 00:59] LABS: OVALOCYTES 1+ (NORMAL); PLATELET ESTIMATE SMEAR LOW (NORMAL); PLATELET MORPHOLOGY NORMAL (NORMAL); SCAN/DIFF AUTO DIFF CONFIRMED
[2017-07-06] MEDS ORDERED: FUROSEMIDE 40 MG/4 ML VIAL IV PUSH ONE (01:15)
[2017-07-06] MEDS: DILTIAZEM HCL 60 MG TAB PO SCH ×4 (01:25→21:39)
[2017-07-06] MEDS: INSULIN NovoLIN REGULAR SUPPLEMENTAL SCALE SQ SCH ×4 (06:00→17:44)
[2017-07-06] MEDS: ISOSORBIDE MONONITRATE 30 MG TAB PO SCH (06:07)
[2017-07-06] MEDS: PROPRANOLOL HCL 10 MG TAB PO SCH ×3 (06:07→21:40)
[2017-07-06 07:34] LABS: ALT (GPT) 66 U/L (10-53); AUTOMATED NEUTROPHIL # 10.4 TH/MM3 (1.8-7.7); BASOPHIL % 0.3 % (0.0-2.0); HEMO FLAGS AUTO DIFF; LYMPH % 2.1 % (9.0-44.0); LYMPHOCYTE # 0.2 TH/MM3 (1.0-4.8); MEAN CELL VOLUME 92.5 FL (80.0-100.0); MEAN CORPUSCULAR HEMOGLOBIN 30.5 PG (27.0-34.0); MONO % 2.2 % (0.0-8.0); NEUT % 95.4 % (16.0-70.0); PLATELET COUNT 45 TH/MM3 (150-450); RED BLOOD COUNT 3.02 MIL/MM3 (4.00-5.30); RED CELL DISTRIBUTION WIDTH 17.4 % (11.6-17.2); WHITE BLOOD COUNT 10.9 TH/MM3 (4.0-11.0)
[2017-07-06 07:38] LABS: ALKALINE PHOSPHATASE 197 U/L (45-117); TOTAL BILIRUBIN ADULT 1.6 MG/DL (0.2-1.0)
[2017-07-06 07:41] LABS: ANION GAP 15 MEQ/L (5-15); AST (GOT) 75 U/L (15-37); BICARBONATE 23.3 MEQ/L (21.0-32.0); BLOOD UREA NITROGEN 116 MG/DL (7-18); CHLORIDE 93 MEQ/L (98-107); GLOMERULAR FILTRATION RATE 9 ML/MIN (>89); SODIUM (NA) 131 MEQ/L (136-145)
[2017-07-06 07:42] LABS: POTASSIUM 5.7 MEQ/L (3.5-5.1)
[2017-07-06] MEDS: INSULIN DETEMIR 100 UNITS/ML VIAL SQ SCH ×2 (08:37→21:40)
[2017-07-06 08:39] LABS: SCAN/DIFF AUTO DIFF CONFIRMED
[2017-07-06] MEDS: CALCIUM ACETATE 667 MG CAP PO SCH ×3 (09:00→17:42)
[2017-07-06] MEDS: PANTOPRAZOLE SODIUM 40 MG VIAL IV PUSH SCH ×2 (09:00→21:38)
[2017-07-06] MEDS: SODIUM CHLORIDE 0.9% FLUSH 10 ML FLUSH IV FLUSH SCH ×3 (09:00→21:39)
[2017-07-06] MEDS: CEPHALEXIN MONOHYDRATE 250 MG CAP PO SCH ×2 (09:00→21:38)
[2017-07-06] MEDS: VITAMIN B CMPLX/VITC/FOLIC AC CAP PO SCH (09:00)
[2017-07-06] MEDS: FERROUS SULFATE 325 MG (65 MG ELEMENTAL IRON) TAB PO SCH (09:00)
[2017-07-06] MEDS: methylPREDNISolone SOD SUCC 40 MG/1 ML VIAL IV PUSH SCH ×2 (10:00→21:38)
--- NOTE | 2017-07-06 11:07 | HHI.NPPN ---
Subjective History of Present Illness 76-year-old female with past medical history of hypertension, diabetes mellitus, hyperlipidemia, ischemic heart disease, chronic kidney disease, chronic obstructive pulmonary disease was admitted because of generalized weakness, decreased urine output. I he was called to see the patient for elevated BUN and creatinine. The patient is known to me from before. She has been following with me in the office and last time I saw her was on May 04 and at that time her creatinine was 2.2 with given the GFR of 19-20 she had advanced stage IV chronic kidney disease most likely because of diabetic nephropathy. Additional Remarks Patient is alert, seen during HD, alert, no SOB, with nasal cannula. Review of Systems General General Remarks Intubated and sedated. Objective Data Data Vital Signs Date Time Temp Pulse Resp B/P (MAP) Pulse Ox O2 Delivery O2 Flow Rate FiO2 07/06/17 11:01 78 07/06/17 11:01 78 07/06/17 08:00 96.1 59 17 133/70 (91) 97 07/06/17 06:00 95.5 73 20 164/77 (106) 95 07/06/17 04:00 96.1 74 20 143/70 (94) 99 07/06/17 03:29 70 07/05/17 23:54 89 07/05/17 23:49 95.8 105 20 131/75 (93) 96 07/05/17 21:26 103 07/05/17 20:25 96 Nasal Cannula 2.00 07/05/17 20:25 101 07/05/17 16:00 95.6 74 17 141/72 (95) 95 07/05/17 11:52 96.0 60 17 145/70 94 07/05/17 11:45 96.0 60 17 145/70 (95) 95 07/05/17 11:30 96.0 63 18 149/72 (97) 90 07/05/17 11:29 96.0 63 18 149/72 90 -: 07/06/17 0609 07/06/17 0609 Physical Exam General Appearance: No Acute Distress, Comfortable Eyes Eye Exam: Pupils Equal Throat Throat Exam: Oral Mucosa Lares & Moist Neck Neck Exam: Neck Supple Pulmonary Resp Exam: Breath Sounds Equal, Rhonchi, Decreased Bases, Diminished Breath Sounds, Poor Inspiratory Effort Cardiology CV Exam: Regular, Normal Sinus Rhythm Gastrointestinal/Abdomen GI Exam: Soft, Non-Tender, Bowel Sounds Present, Distended Extremeties Extremities Exam: Trace Edema Neurologic Neuro Exam: Alert, Awake, Oriented Psychiatric Psych Exam: Appropriate Responses Assessment/Plan Assessment Summary: [place]/Acute Renal Failure, Hypertension, CKD Stage IV Problem List: (1) Chronic kidney disease (CKD) ICD Codes: N18.9 - Chronic kidney disease, unspecified (2) Oliguria ICD Codes: R34 - Anuria and oliguria (3) Diarrhea ICD Codes: R19.7 - Diarrhea, unspecified (4) Metabolic acidosis ICD Codes: E87.2 - Acidosis Status: Acute (5) Uremia ICD Codes: N19 - Unspecified kidney failure Status: Acute (6) Acute renal failure ICD Codes: N17.9 - Acute kidney failure, unspecified Status: Acute Plan Patient has advance stage 4 chronic kidney disease, approach stage 5. Started on HD. Patient has COPD with high CO2 and developing SOB off and on. Off vent doing better BP is stable. Has tunneled catheter for HD Vascular called, they will do AVF as out patient. HD done yesterday. Out patient HD arrangement. On Nepro, and Keflex for cellulitis at left arm IV site. Hgb. dropped, for transfused and now stable. On Epogen with HD. HD now, for D/C, she is MWF as out patient, so to start tomorrow if D/C. Problem Qualifiers (1) Chronic kidney disease (CKD): Qualified Codes: N18.5 - Chronic kidney disease, stage 5 (2) Acute renal failure: Qualified Codes: N17.9 - Acute kidney failure, unspecified Lexy Lee MD Jul 06, 2017 11:07
[2017-07-06] MEDS: EPOETIN ALFA 10,000 UNITS/ML VIAL IV PUSH PRN (11:27)
[2017-07-06] MEDS: GENTAMICIN SULFATE (DIALYSIS USE ONLY) 20 MG/2 ML VIAL OTHER PRN (11:28)
[2017-07-06] MEDS: BUDESONIDE-FORMOTEROL 160/4.5 MCG INHALER INH SCH ×2 (12:45→21:38)
--- NOTE | 2017-07-06 13:22 | PD.ONC.PN ---
Subjective Subjective Remarks Afebrile Anxious to get out of the hospital; complaining about the food No bleeding No other acute complaints Objective Data Date Time Temp Pulse Resp B/P (MAP) Pulse Ox O2 Delivery O2 Flow Rate FiO2 07/06/17 12:40 96.4 66 17 153/70 (97) 97 07/06/17 11:01 78 07/06/17 11:01 78 07/06/17 08:00 96.1 59 17 133/70 (91) 97 07/06/17 06:00 95.5 73 20 164/77 (106) 95 07/06/17 04:00 96.1 74 20 143/70 (94) 99 07/06/17 03:29 70 07/05/17 23:54 89 07/05/17 23:49 95.8 105 20 131/75 (93) 96 07/05/17 21:26 103 07/05/17 20:25 96 Nasal Cannula 2.00 07/05/17 20:25 101 07/05/17 16:00 95.6 74 17 141/72 (95) 95 07/06/17 07/06/17 07/06/17 07:00 15:00 23:00 Output Total 1000 ml Balance -1000 ml Result Diagram: 07/06/17 0609 07/06/17 0609 Laboratory Results Laboratory Tests Test 07/05/17 23:59 07/06/17 06:09 07/06/17 12:34 White Blood Count 11.2 TH/MM3 10.9 TH/MM3 Red Blood Count 3.01 MIL/MM3 3.02 MIL/MM3 Hemoglobin 9.4 GM/DL 9.2 GM/DL Hematocrit 27.4 % 28.0 % Mean Corpuscular Volume 91.1 FL 92.5 FL Mean Corpuscular Hemoglobin 31.1 PG 30.5 PG Mean Corpuscular Hemoglobin Concent 34.1 % 33.0 % Red Cell Distribution Width 17.3 % 17.4 % Platelet Count 49 TH/MM3 45 TH/MM3 Mean Platelet Volume 10.5 FL 10.1 FL Neutrophils (%) (Auto) 95.0 % 95.4 % Lymphocytes (%) (Auto) 1.8 % 2.1 % Monocytes (%) (Auto) 2.9 % 2.2 % Eosinophils (%) (Auto) 0.1 % 0.0 % Basophils (%) (Auto) 0.2 % 0.3 % Neutrophils # (Auto) 10.7 TH/MM3 10.4 TH/MM3 Lymphocytes # (Auto) 0.2 TH/MM3 0.2 TH/MM3 Monocytes # (Auto) 0.3 TH/MM3 0.2 TH/MM3 Eosinophils # (Auto) 0.0 TH/MM3 0.0 TH/MM3 Basophils # (Auto) 0.0 TH/MM3 0.0 TH/MM3 CBC Comment AUTO DIFF AUTO DIFF Differential Comment AUTO DIFF CONFIRMED AUTO DIFF CONFIRMED Platelet Estimate LOW Platelet Morphology Comment NORMAL Ovalocytes 1+ Acanthocytes OCC Blood Urea Nitrogen 116 MG/DL 116 MG/DL Creatinine 4.71 MG/DL 4.91 MG/DL Random Glucose 147 MG/DL 105 MG/DL Calcium Level 8.5 MG/DL 8.5 MG/DL Magnesium Level 2.1 MG/DL Sodium Level 132 MEQ/L 131 MEQ/L Potassium Level 5.3 MEQ/L 5.7 MEQ/L Chloride Level 95 MEQ/L 93 MEQ/L Carbon Dioxide Level 25.0 MEQ/L 23.3 MEQ/L Anion Gap 12 MEQ/L 15 MEQ/L Estimat Glomerular Filtration Rate 9 ML/MIN 9 ML/MIN Troponin I 0.23 NG/ML 0.23 NG/ML B-Type Natriuretic Peptide 820 PG/ML Total Protein 6.4 GM/DL Albumin 3.7 GM/DL Alkaline Phosphatase 197 U/L Aspartate Amino Transf (AST/SGOT) 75 U/L Alanine Aminotransferase (ALT/SGPT) 66 U/L Total Bilirubin 1.6 MG/DL Administered Medications Medications (Trade) Dose Ordered Sig/[place] Route PRN Reason Start Time Stop Time Status Last Admin Dose Admin Sodium Chloride (NS Flush) 2 ml UNSCH PRN IV FLUSH FLUSH AFTER USING IV ACCESS 05/30/17 21:45 06/23/17 05:39 Sodium Chloride (NS Flush) 2 ml BID IV FLUSH 05/31/17 09:00 07/05/17 21:09 Atorvastatin Calcium (Lipitor) 80 mg HS PO 05/31/17 21:00 Future hold 07/05/17 20:56 Ondansetron HCl (Zofran Inj) 4 mg Q6HR PRN IV PUSH NAUSEA OR VOMITING 05/31/17 13:00 06/29/17 19:53 Sodium Chloride 1,000 ml @ 0 mls/hr Q0M PRN OTHER For Prime & Rinse Back 06/01/17 09:07 06/24/17 09:31 Heparin Sodium (Porcine) (Heparin Inj) 8,000 units UNSCH PRN IV FLUSH WITH DIALYSIS 06/01/17 09:15 07/06/17 11:27 Sodium Chloride 1,000 ml @ 200 mls/hr Q5H PRN IV WITH DIALYSIS 06/01/17 09:07 06/16/17 14:53 Mannitol (Mannitol Inj) 12.5 gm UNSCH PRN IV WITH DIALYSIS 06/01/17 09:15 06/02/17 08:06 Albumin Human 100 ml @ 60 mls/hr UNSCH PRN IV WITH DIALYSIS 06/01/17 09:15 07/04/17 10:26 Sodium Chloride (NS Flush) 5 ml UNSCH PRN IV FLUSH WITH DIALYSIS 06/01/17 09:15 06/24/17 09:31 Heparin Sodium (Porcine) (Heparin Inj) UNSCH PRN .XX WITH DIALYSIS 06/01/17 09:15 07/01/17 12:14 Gentamicin Sulfate (Gentamicin (Dialysis) Inj) 20 mg UNSCH PRN OTHER WITH DIALYSIS 06/01/17 09:15 07/06/17 11:28 Diphenhydramine HCl (Benadryl) 25 mg UNSCH PRN PO for hives/itching/anaphylaxis 06/01/17 09:15 07/05/17 10:55 Clonidine (Catapres) 0.1 mg UNSCH PRN PO for BP > 180/100 X 2 readings 06/01/17 09:15 06/22/17 02:28 Sennosides (Senokot) 17.2 mg Q12H PRN PO Moderate constipation 06/01/17 18:30 07/04/17 13:56 Alprazolam (Xanax) 0.5 mg Q8H PRN PO MILD ANXIETY 06/06/17 13:00 07/04/17 21:50 Epoetin Geoffrey (Epogen Inj) 10,000 units UNSCH PRN IV PUSH WITH DIALYSIS 06/07/17 21:30 07/06/17 11:27 Vitamin B Complex/ Vit C/Folic Acid (Nephrocaps) 1 cap DAILY PO 06/08/17 09:00 07/05/17 08:15 Calcium Acetate (Phoslo) 1,334 mg TID PO 06/08/17 09:00 07/06/17 12:45 Ferrous Sulfate (Ferrous Sulfate) 325 mg DAILY PO 06/09/17 09:00 07/05/17 08:14 Loperamide HCl (Imodium Liq) 2 mg Q4H PRN PO DIARRHEA 06/10/17 13:00 06/21/17 20:35 Sodium Chloride (NS Flush) DAILY IV FLUSH 06/12/17 09:00 07/05/17 08:16 Budesonide/ Formoterol Fumarate (Symbicort 160-4.5 Inh) 2 puff Q12HR INH 06/17/17 09:00 07/06/17 12:45 Insulin Detemir (Levemir Inj) 25 units Q12HR SQ 06/18/17 09:00 Future hold 07/06/17 08:37 Albuterol Sulfate (Albuterol Neb) 2.5 mg Q2HR NEB PRN NEB dyspnea 06/22/17 06:45 06/27/17 19:52 Hydralazine HCl (Apresoline) 100 mg Q8HR PO 06/22/17 14:00 Future Hold 06/24/17 05:29 Isosorbide Mononitrate (Imdur) 30 mg DAILY@07 PO 06/22/17 07:00 07/06/17 06:07 Miscellaneous (Pill Splitter) 1 ea UNSCH PRN OTHER SEE LABEL COMMENTS 06/22/17 18:00 06/23/17 14:16 Methylprednisolone Sodium Succinate (SoluMEDROL INJ) 40 mg Q12H IV PUSH 06/28/17 10:00 07/05/17 20:56 Acetaminophen/ Hydrocodone Bitart ([place] 5-325 Mg) 2 tab Q6H PRN PO PAIN 6-10 06/28/17 08:15 07/01/17 00:07 Insulin Human Regular (NovoLIN R SUPPLEMENTAL SCALE) 1 Q6HR SQ 06/28/17 12:00 07/05/17 18:01 Pantoprazole Sodium (Protonix Inj) 40 mg Q12HR IV PUSH 06/28/17 13:00 07/05/17 21:09 Propranolol HCl (Inderal) 10 mg Q8HR PO 06/28/17 14:00 07/06/17 12:45 Diltiazem HCl (Cardizem) 60 mg Q6H PO 06/29/17 08:00 07/06/17 12:46 Cephalexin Monohydrate (Keflex) 250 mg BID PO 07/04/17 21:00 07/05/17 20:56 Objective Remarks GENERAL: Elderly female sitting up in bed eating lunch in no acute distress SKIN: Warm and dry. Multiple bruises HEAD: Normocephalic. EYES: No injection or drainage. NECK: Supple, trachea midline. CARDIOVASCULAR: +S1/S2 RESPIRATORY: Scattered rhonchi anteriorly. GASTROINTESTINAL: Abdomen soft, non-tender, nondistended. EXTREMITIES: No cyanosis NEUROLOGICAL: Normal speech. Moving extremities. No obvious focal deficits Assessment/Plan Problem List: (1) DVT of upper extremity (deep vein thrombosis) ICD Codes: I82.629 - Acute embolism and thrombosis of deep veins of unspecified upper extremity Status: Acute Plan: Anticoagulation on hold due to acute GI bleed, melena/BRBPR, anemia and thrombocytopenia. LUE previous internal jugular vein thrombus, L cephalic vein persist on FU US today. (2) Acute blood loss anemia ICD Codes: D62 - Acute posthemorrhagic anemia Status: Acute Plan: Supportive transfusion. Likely etiology of anemia/thrombocytopenia. Work up negative: HIT neg, PAT neg, retic high c/w blood loss anemia. EGD/colonoscopy 06/19-->gastritis in the antrum. +large hiatal hernia. Colonoscopy showed ulcer in the cecum. These were treated with clips. There is no active bleeding. She does not have esophageal varices. EGD/colonoscopy 06/23--> erythematous gastritis in the gastric antrum; Severe diverticulosis in the sigmoid colon. 3 x 5cm colitis was found in the transverse colon; The mucosa was erythematous, friable, ulcerated and oozing blood; Injected with 5 cc of epinephrine, and ablated with APC. Good hemostasis obtained Bleeding scan (06/28/17)---> No definite evidence of active colonic GI bleeding is noted. 2 very tiny areas are identified the right midabdomen but they do not correspond with bowel activity. Assessment 76y/o female admitted with generalized weakness. Hematology consulted for anemia /thrombocytopenia. history of hypertension, diabetes, hyperlipidemia, ischemic heart disease, chronic kidney disease on hemodialysis. COPD Plan 1. Hemoglobin much improved after 1 unit packed red blood cells yesterday. 2. Thrombocytopenia likely due to consumption 3. Monitor CBC. 4. Hold anticoagulation until platelets consistently greater than 100k. Attending Statement The exam, history, and the medical decision-making described in the above note were completed with the assistance of the mid-level provider. I reviewed and agree with the findings presented. I attest that I had a [id number] encounter with the patient on the same day, and personally performed and documented my assessment and findings in the medical record. Denies any bleeding. Hgb and platelet stable. Pending DC to rehab. Recommend check CBC w/ hemodialysis and transfuse as needed. Problem Qualifiers (1) DVT of upper extremity (deep vein thrombosis): Qualified Codes: I82.622 - Acute embolism and thrombosis of deep veins of left upper extremity Hoa Case Jul 06, 2017 13:22 Socorro Foster MD Jul 06, 2017 22:52
--- NOTE | 2017-07-06 14:56 | HHI.PR ---
Subjective Remarks High potassium this morning. Patient seen Status post dialysis today. Patient' s fatigue. She will have another dialysis tomorrow. Objective Vital Signs Date Time Temp Pulse Resp B/P (MAP) Pulse Ox O2 Delivery O2 Flow Rate FiO2 07/06/17 12:40 96.4 66 17 153/70 (97) 97 07/06/17 11:01 78 07/06/17 11:01 78 07/06/17 08:00 96.1 59 17 133/70 (91) 97 07/06/17 06:00 95.5 73 20 164/77 (106) 95 07/06/17 04:00 96.1 74 20 143/70 (94) 99 07/06/17 03:29 70 07/05/17 23:54 89 07/05/17 23:49 95.8 105 20 131/75 (93) 96 07/05/17 21:26 103 07/05/17 20:25 96 Nasal Cannula 2.00 07/05/17 20:25 101 07/05/17 16:00 95.6 74 17 141/72 (95) 95 I/O 07/05/17 07/05/17 07/05/17 07/06/17 07/06/17 07/06/17 06:59 14:59 22:59 06:59 14:59 22:59 Intake Total 240 ml 2 ml 885 ml Output Total 1000 ml Balance 240 ml 2 ml 885 ml -1000 ml Intake Oral 240 ml 480 ml Packed Cells 400 ml Blood Product IV Normal Saline Flush 2 ml 5 ml Hemodialysis 1000 ml # Voids 3 0 # Bowel Movements 1 1 Result Diagram: 07/06/17 0609 07/06/17 0609 Objective Remarks GENERAL: NAD, A&Ox3 HEAD: Normocephalic. NECK: Supple, trachea midline. No lymphadenopathy. EYES: No scleral icterus. No injection or drainage. CARDIOVASCULAR: Irregularly irregular rate with tachycardic rhythm, without murmurs, gallops, or rubs. RESPIRATORY: Breath sounds equal bilaterally. No accessory muscle use. GASTROINTESTINAL: Abdomen soft, non-tender, nondistended. MUSCULOSKELETAL: No cyanosis, or edema. SKIN: Warm and dry. NEURO: No focal neurological deficitis. A/P Problem List: (1) Atrial fibrillation with RVR ICD Code: I48.91 - Unspecified atrial fibrillation Status: Resolved (2) COPD exacerbation ICD Code: J44.1 - Chronic obstructive pulmonary disease with (acute) exacerbation Status: Acute (3) Acute renal failure ICD Code: N17.9 - Acute kidney failure, unspecified Status: Acute (4) Chronic kidney disease (CKD) ICD Code: N18.9 - Chronic kidney disease, unspecified (5) Paroxysmal atrial fibrillation ICD Code: I48.0 - Paroxysmal atrial fibrillation Status: Acute Assessment and Plan Assessment and plan 76-year-old female admitted secondary to pneumonia with acute renal failure. Presently on chronic hemodialysis. Labs reviewed. Elevated potassium today. Anemia is present. Improved anemia status post transfusion. Slight downward trend. Continue to monitor potassium and CBC. Labs ordered for further monitoring. Dialysis planned for tomorrow. A. fib RVR Baseline paroxysmal A. fib Now rate controlled Continue Cardizem Follow on telemetry Community-acquired pneumonia COPD exacerbation Treatment completed No further exacerbation Status post extubation 06/06/17 Continue oxygen as needed Continue Spiriva Continue Symbicort Chronic kidney disease stage IV End-stage renal disease Continue on hemodialysis Nephrology following Outpatient arrangements are in process R Permacath placed 06/22 Continue calcium acetate 1334 mg 3 times a day Gen. anxiety disorder Continue as needed Xanax Anemia Related to chronic kidney disease Continue Epogen Continue iron Diabetes mellitus type 2 Follow blood sugars Insulin sliding scale Diabetic diet DVT Prophylaxis Heparin Discharge Planning shelter facility for OT and PT Outpatient Dialysis anticipated Problem Qualifiers (1) Acute renal failure: Qualified Codes: N17.9 - Acute kidney failure, unspecified (2) Chronic kidney disease (CKD): Qualified Codes: N18.5 - Chronic kidney disease, stage 5 Laci Ibarra MD Jul 06, 2017 14:56
--- NOTE | 2017-07-06 16:08 | HHI.HCPN ---
Reason for visit a. To assist with evaluation and management of symptoms including: Dyspnea, anxiety, debility b. To assist medical decision maker(s) with: better understanding of current medical conditions; weighing benefits/burdens of medical treatment options; making medical treatment decisions. Subjective/Interval History Interim history: * Laboratory: WBC 10.9, Hgb 9.2 (dropped to 6.9 07/05, transfused with 1 unit PRBC), HCT 28.0, platelets 45, sodium 131, potassium 5.7, BUN 116, creatinine 4.91, calcium 8.5. * Radiology: Abdominal ultrasound is negative. Consultations: * Hematology: Following for thrombocytopenia, thought to be due to consumption. Hold anticoagulation until platelets greater than 100 consistently due to GI bleed/BRBPR. * Gastroenterology: EGD 06/23 showed erythematous gastritis in the gastric antrum with severe diverticulosis in the sigmoid colon. 3 x 5 cm colitis was found in the transverse colon. Mucosa was erythematous, friable, ulcerated and oozing blood. Injected with 5 cc of epinephrine and ablated with APC with good hemostasis obtained. Continue Protonix. GI has signed off. * Nephrology: Following for dialysis management, will follow as outpatient. AV fistula placement planned as outpatient. Currently has tunneled catheter for dialysis. . Advance Directives Health Care Surrogate: Copy in medical record Advance Directive Specifics Health Care Surrogate(s): Dorothea Gonzalez, patient's daughter Objective Vital Signs Date Time Temp Pulse Resp B/P (MAP) Pulse Ox O2 Delivery O2 Flow Rate FiO2 07/06/17 12:40 96.4 66 17 153/70 (97) 97 07/06/17 11:01 78 07/06/17 11:01 78 07/06/17 08:00 96.1 59 17 133/70 (91) 97 07/06/17 06:00 95.5 73 20 164/77 (106) 95 07/06/17 04:00 96.1 74 20 143/70 (94) 99 07/06/17 03:29 70 07/05/17 23:54 89 07/05/17 23:49 95.8 105 20 131/75 (93) 96 07/05/17 21:26 103 07/05/17 20:25 96 Nasal Cannula 2.00 07/05/17 20:25 101 07/05/17 16:00 95.6 74 17 141/72 (95) 95 Intake & Output 07/06/17 07/06/17 07:00 19:00 Output Total 1000 ml Balance -1000 ml Hemodialysis 1000 ml # Bowel Movements 1 Physical Exam CONSTITUTIONAL/GENERAL: This is an elderly female patient, in no apparent distress. TUBES/LINES/DRAINS: PIV x1, Vas cath SKIN: No jaundice, rashes, or lesions. Right ACF bruise. Skin temperature appropriate. Not diaphoretic. Painful excoriation on coccyx. CARDIOVASCULAR: Irregular rhythm, controlled rate without murmurs, gallops, or rubs. No JVD. Peripheral pulses symmetric. RESPIRATORY/CHEST: Symmetric, unlabored respirations. Clear to auscultation. Breath sounds equal bilaterally. No wheezes, rales, or rhonchi. GASTROINTESTINAL: Abdomen soft, non-tender, nondistended. No hepato-splenomegaly , or palpable masses. No guarding. Bowel sounds present. GENITOURINARY: Without palpable bladder distension. MUSCULOSKELETAL: Extremities without clubbing, cyanosis, or edema. No joint tenderness or effusion noted. No calf tenderness. No mottling or clubbing. NEUROLOGICAL: Alert and oriented 4, no obvious deficits. PSYCHIATRIC: Cooperative. . Diagnostic Tests Laboratory Laboratory Tests Test 07/03/17 16:06 07/04/17 07:50 07/04/17 09:45 07/04/17 15:30 Prothrombin Time 10.8 SEC (9.8-11.6) Prothromb Time International Ratio 1.0 RATIO Activated Partial Thromboplast Time 24.6 SEC (24.3-30.1) Fibrinogen 223 mg/dL (227-377) Lactate Dehydrogenase 359 U/L (84-246) Blood Urea Nitrogen 142 MG/DL (7-18) Creatinine 6.02 MG/DL (0.50-1.00) Random Glucose 109 MG/DL (74-106) Total Protein 5.5 GM/DL (6.4-8.2) Albumin 3.1 GM/DL (3.4-5.0) Calcium Level 8.0 MG/DL (8.5-10.1) Alkaline Phosphatase 146 U/L (45-117) Aspartate Amino Transf (AST/SGOT) 47 U/L (15-37) Alanine Aminotransferase (ALT/SGPT) 42 U/L (10-53) Total Bilirubin 1.0 MG/DL (0.2-1.0) Sodium Level 131 MEQ/L (136-145) Potassium Level 7.0 MEQ/L (3.5-5.1) 4.1 MEQ/L (3.5-5.1) Chloride Level 91 MEQ/L (98-107) Carbon Dioxide Level 23.1 MEQ/L (21.0-32.0) Anion Gap 17 MEQ/L (5-15) Estimat Glomerular Filtration Rate 7 ML/MIN (>89) White Blood Count 9.5 TH/MM3 (4.0-11.0) Red Blood Count 2.51 MIL/MM3 (4.00-5.30) Hemoglobin 7.6 GM/DL (11.6-15.3) 7.4 GM/DL (11.6-15.3) Hematocrit 22.0 % (35.0-46.0) 22.3 % (35.0-46.0) Mean Corpuscular Volume 87.7 FL (80.0-100.0) Mean Corpuscular Hemoglobin 30.2 PG (27.0-34.0) Mean Corpuscular Hemoglobin Concent 34.4 % (32.0-36.0) Red Cell Distribution Width 17.1 % (11.6-17.2) Platelet Count 46 TH/MM3 (150-450) Mean Platelet Volume 9.5 FL (7.0-11.0) Neutrophils (%) (Auto) 96.1 % (16.0-70.0) Lymphocytes (%) (Auto) 1.6 % (9.0-44.0) Monocytes (%) (Auto) 2.1 % (0.0-8.0) Eosinophils (%) (Auto) 0.0 % (0.0-4.0) Basophils (%) (Auto) 0.2 % (0.0-2.0) Neutrophils # (Auto) 9.1 TH/MM3 (1.8-7.7) Lymphocytes # (Auto) 0.2 TH/MM3 (1.0-4.8) Monocytes # (Auto) 0.2 TH/MM3 (0-0.9) Eosinophils # (Auto) 0.0 TH/MM3 (0-0.4) Basophils # (Auto) 0.0 TH/MM3 (0-0.2) CBC Comment AUTO DIFF Differential Comment AUTO DIFF CONFIRMED Platelet Estimate LOW (NORMAL) Platelet Morphology Comment NORMAL (NORMAL) Test 07/05/17 04:20 07/05/17 23:59 07/06/17 06:09 07/06/17 12:34 White Blood Count 8.1 TH/MM3 (4.0-11.0) 11.2 TH/MM3 (4.0-11.0) 10.9 TH/MM3 (4.0-11.0) Red Blood Count 2.35 MIL/MM3 (4.00-5.30) 3.01 MIL/MM3 (4.00-5.30) 3.02 MIL/MM3 (4.00-5.30) Hemoglobin 6.9 GM/DL (11.6-15.3) 9.4 GM/DL (11.6-15.3) 9.2 GM/DL (11.6-15.3) Hematocrit 20.8 % (35.0-46.0) 27.4 % (35.0-46.0) 28.0 % (35.0-46.0) Mean Corpuscular Volume 88.4 FL (80.0-100.0) 91.1 FL (80.0-100.0) 92.5 FL (80.0-100.0) Mean Corpuscular Hemoglobin 29.2 PG (27.0-34.0) 31.1 PG (27.0-34.0) 30.5 PG (27.0-34.0) Mean Corpuscular Hemoglobin Concent 33.0 % (32.0-36.0) 34.1 % (32.0-36.0) 33.0 % (32.0-36.0) Red Cell Distribution Width 17.8 % (11.6-17.2) 17.3 % (11.6-17.2) 17.4 % (11.6-17.2) Platelet Count 45 TH/MM3 (150-450) 49 TH/MM3 (150-450) 45 TH/MM3 (150-450) Mean Platelet Volume 9.1 FL (7.0-11.0) 10.5 FL (7.0-11.0) 10.1 FL (7.0-11.0) Neutrophils (%) (Auto) 95.1 % (16.0-70.0) 95.0 % (16.0-70.0) 95.4 % (16.0-70.0) Lymphocytes (%) (Auto) 1.7 % (9.0-44.0) 1.8 % (9.0-44.0) 2.1 % (9.0-44.0) Monocytes (%) (Auto) 2.9 % (0.0-8.0) 2.9 % (0.0-8.0) 2.2 % (0.0-8.0) Eosinophils (%) (Auto) 0.0 % (0.0-4.0) 0.1 % (0.0-4.0) 0.0 % (0.0-4.0) Basophils (%) (Auto) 0.3 % (0.0-2.0) 0.2 % (0.0-2.0) 0.3 % (0.0-2.0) Neutrophils # (Auto) 7.7 TH/MM3 (1.8-7.7) 10.7 TH/MM3 (1.8-7.7) 10.4 TH/MM3 (1.8-7.7) Lymphocytes # (Auto) 0.1 TH/MM3 (1.0-4.8) 0.2 TH/MM3 (1.0-4.8) 0.2 TH/MM3 (1.0-4.8) Monocytes # (Auto) 0.2 TH/MM3 (0-0.9) 0.3 TH/MM3 (0-0.9) 0.2 TH/MM3 (0-0.9) Eosinophils # (Auto) 0.0 TH/MM3 (0-0.4) 0.0 TH/MM3 (0-0.4) 0.0 TH/MM3 (0-0.4) Basophils # (Auto) 0.0 TH/MM3 (0-0.2) 0.0 TH/MM3 (0-0.2) 0.0 TH/MM3 (0-0.2) CBC Comment AUTO DIFF AUTO DIFF AUTO DIFF Differential Comment AUTO DIFF CONFIRMED AUTO DIFF CONFIRMED AUTO DIFF CONFIRMED Platelet Estimate LOW (NORMAL) LOW (NORMAL) Platelet Morphology Comment NORMAL (NORMAL) NORMAL (NORMAL) Basophilic Stippling MOD (NORMAL) Blood Urea Nitrogen 88 MG/DL (7-18) 116 MG/DL (7-18) 116 MG/DL (7-18) Creatinine 4.28 MG/DL (0.50-1.00) 4.71 MG/DL (0.50-1.00) 4.91 MG/DL (0.50-1.00) Random Glucose 137 MG/DL (74-106) 147 MG/DL (74-106) 105 MG/DL (74-106) Total Protein 6.1 GM/DL (6.4-8.2) 6.4 GM/DL (6.4-8.2) Albumin 3.8 GM/DL (3.4-5.0) 3.7 GM/DL (3.4-5.0) Calcium Level 8.0 MG/DL (8.5-10.1) 8.5 MG/DL (8.5-10.1) 8.5 MG/DL (8.5-10.1) Alkaline Phosphatase 170 U/L (45-117) 197 U/L (45-117) Aspartate Amino Transf (AST/SGOT) 58 U/L (15-37) 75 U/L (15-37) Alanine Aminotransferase (ALT/SGPT) 51 U/L (10-53) 66 U/L (10-53) Total Bilirubin 1.4 MG/DL (0.2-1.0) 1.6 MG/DL (0.2-1.0) Sodium Level 134 MEQ/L (136-145) 132 MEQ/L (136-145) 131 MEQ/L (136-145) Potassium Level 4.7 MEQ/L (3.5-5.1) 5.3 MEQ/L (3.5-5.1) 5.7 MEQ/L (3.5-5.1) Chloride Level 96 MEQ/L (98-107) 95 MEQ/L (98-107) 93 MEQ/L (98-107) Carbon Dioxide Level 26.5 MEQ/L (21.0-32.0) 25.0 MEQ/L (21.0-32.0) 23.3 MEQ/L (21.0-32.0) Anion Gap 12 MEQ/L (5-15) 12 MEQ/L (5-15) 15 MEQ/L (5-15) Estimat Glomerular Filtration Rate 10 ML/MIN (>89) 9 ML/MIN (>89) 9 ML/MIN (>89) Ovalocytes 1+ (NORMAL) Acanthocytes OCC (NORMAL) Magnesium Level 2.1 MG/DL (1.5-2.5) Troponin I 0.23 NG/ML (0.02-0.05) 0.23 NG/ML (0.02-0.05) 0.24 NG/ML (0.02-0.05) B-Type Natriuretic Peptide 820 PG/ML (0-100) Result Diagram: 07/06/17 0609 07/06/17 0609 Microbiology Microbiology Date/Time Source Procedure Growth Status 06/28/17 16:28 Blood Peripheral Aerobic Blood Culture - Final NO GROWTH IN 5 DAYS Complete 06/28/17 16:28 Blood Peripheral Anaerobic Blood Culture - Final NO GROWTH IN 5 DAYS Complete 06/13/17 18:31 Stool Stool Stool Occult Blood (MELISSA) - Final HEMOCCULT POSITIVE Complete 06/15/17 06:50 Nasal Aspirate Influenza Types A,B Antigen (MELISSA) - Final NEGATIVE FOR FLU A AND B ANTIGEN.... Complete 06/11/17 20:33 Urine Catheterized Urine Urine Culture - Final Lacey Glabrata Lacey Albicans Complete Imaging Last Impressions Abdomen Ultrasound 07/04/17 0000 Signed Impressions: Service Date/Time: Tuesday, July 04, 2017 08:08 - CONCLUSION: Negative Christ Feldman MD Lower Extremity Ultrasound 07/03/17 0000 Signed Impressions: Service Date/Time: Monday, July 03, 2017 13:54 - CONCLUSION: Normal examination. Christ Feldman MD Upper Extremity Ultrasound 06/28/17 0000 Signed Impressions: Service Date/Time: Wednesday, June 28, 2017 08:00 - CONCLUSION: 1. No evidence for soft tissue abscess as questioned. 2. Thrombosed left cephalic vein in the antecubital fossa and proximal forearm. Berny Marie MD Liver Ultrasound 06/28/17 0000 Signed Impressions: Service Date/Time: Wednesday, June 28, 2017 07:48 - CONCLUSION: Echogenic liver possibly fatty infiltration. Tiny amount of fluid adjacent to the liver. Small bilateral pleural effusions. Status post cholecystectomy. Winston Li MD GI Bleed Scan Nuclear Medicine 06/28/17 0000 Signed Impressions: Service Date/Time: Wednesday, June 28, 2017 12:31 - CONCLUSION: No definite evidence of active colonic GI bleeding is noted. 2 very tiny areas are identified the right midabdomen but they do not correspond with bowel activity. Winston Li MD Chest X-Ray 06/28/17 0000 Signed Impressions: Service Date/Time: Wednesday, June 28, 2017 14:56 - CONCLUSION: Right IJ dual-lumen catheter in excellent position. Mild pulmonary vascular congestion with persistent cardiomegaly is unchanged Winston Li MD Central Venous Line 06/22/17 0000 Signed Impressions: Service Date/Time: June 00:00 - CONCLUSION: Uncomplicated catheter removal. Robles Corral MD Catheter Placement X-Ray 06/22/17 0000 Signed Impressions: Service Date/Time: June 14:04 - CONCLUSION: Uncomplicated PermaCath placement as above. Robles Corral MD Renal Ultrasound 05/31/17 0000 Signed Impressions: Service Date/Time: Wednesday, May 31, 2017 08:54 - CONCLUSION: 1. Abnormal appearance to the left kidney with diminutive size and poor delineation of the parenchymal architecture. 2. No gross abnormality seen in the right kidney. Aramis Scott MD Procedures 06/01-endotracheal intubation. 06/01-hemodialysis catheter placement in the right IJ vein 06/12-endotracheal intubation 06/12-left IJ central venous catheter placement 06/19-colonoscopy showing ulcers in the cecum, ascending colon, transverse colon and sigmoid diverticulosis. Biopsies taken. . 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 She has been twice, in the first and was then during her second marriage. She moved to [place] in 1993 and lives in her own home since that time. She has 1 daughter, Dorothea Gonzalez who lives in [place]. Spiritual: She is a non-practicing [employer] who would accept duct maker visits. Legal: She is currently able to make decisions for herself, however has designated her daughter Dorothea as her healthcare surrogate. Ethical issues impacting care: None noted at this time . Important Contacts Daughter-Dorothea Gonzalez Prognosis Her prognosis is guarded. She has been intubated twice and has required BiPAP to prevent a third intubation. She has smoked for approximately 60 years is morbidly obese and sedentary. She is now developed end-stage renal disease and is on dialysis. She has uncontrolled diabetes mellitus and anemia. She was found to have multiple ulcers on colonoscopy and is now on Procrit for combination anemia of chronic disease and GI blood loss. Given her debility from extended hospitalization and baseline decline she is at significant risk for falls, poor self-care and recurrent hospitalizations. . Code Status: Alternative Code Plan PLAN: Legal decision maker: She is currently able to make her own decisions but has designated her daughter, Dorothea Gonzalez as the healthcare surrogate decision- maker. Goals: Aggressive short of CPR. CODE STATUS: Alternative code, intubation only. SYMPTOMS: * Dyspnea: She is on room air with no dyspnea at this time. She states that she is not going to smoke anymore and this was encouraged. Her daughter is concerned that if she does return to her home, she will return to smoking. She is currently receiving albuterol, Solu-Medrol, Symbicort, Ativan. She remains at risk for continued respiratory compromise. * Anxiety: She has a chronic baseline anxiety for which she took Xanax at home. She is very happy that she has quit smoking and is showing no significant anxiety at this time. She is at risk for anxiety secondary to her high bleeding risk. Case management planning for upcoming discharge. Patient's ultimate goal is to move to [place] near her daughter. As she is on hemodialysis, the complications of this are likely to increase her anxiety. She will require significant social support to make this transition. * Debility: She has been bedbound for over a month and has suffered significant debility from that. Physical therapy found her unable to stand unassisted and was able to sit up with repeated cuing for about 8 minutes before slumping to the left. She will need rehabilitative therapy. Palliative care will continue to follow the patient during hospital course as condition evolves, to assist patient/decision-maker with understanding of their medical conditions, weighing benefits/burdens of treatment options, for clarification of goals of treatment. Additionally will assist with any symptoms of palliative concern. . Attestation To help prompt me to consider important information that might be impacting today's encounter and assessment, information from prior notes written by myself or my colleagues may have been "brought forward" into today's note. My signature on this note, however, is an attestation that I personally performed the exam, history, and/or decision-making noted today, and, unless otherwise indicated, the interactions with patient, family, and staff as well as the review of records all occurred today. I also attest that the listed assessment and stated plan reflect my best clinical judgment today based on the combination of historical information, prior notes, and today's exam/ interactions. When time spent is documented, it refers only to time spent today by the signer, or if indicated, combined time spent today by collaborating physician/nurse practitioner. . Sangeeta Johnson Jul 06, 2017 4:08 pm
--- NOTE | 2017-07-06 17:43 | HHI.PR ---
Subjective Remarks 76 YOWF with VDRF,Ac renal Failure,DM, Met acidosis No Fever Alert awake feels weak, mild sob Breathing better Objective Vital Signs Vital Signs Date Time Temp Pulse Resp B/P (MAP) Pulse Ox O2 Delivery O2 Flow Rate FiO2 07/06/17 16:00 95.9 51 17 122/90 (101) 95 07/06/17 12:45 Nasal Cannula 2.00 07/06/17 12:40 96.4 66 17 153/70 (97) 97 07/06/17 11:01 78 07/06/17 11:01 78 07/06/17 08:00 96.1 59 17 133/70 (91) 97 07/06/17 06:00 95.5 73 20 164/77 (106) 95 07/06/17 04:00 96.1 74 20 143/70 (94) 99 07/06/17 03:29 70 07/05/17 23:54 89 07/05/17 23:49 95.8 105 20 131/75 (93) 96 07/05/17 21:26 103 07/05/17 20:25 96 Nasal Cannula 2.00 07/05/17 20:25 101 I/O 07/05/17 07/05/17 07/05/17 07/06/17 07/06/17 07/06/17 07:00 15:00 23:00 07:00 15:00 23:00 Intake Total 240 ml 2 ml 885 ml Output Total 1000 ml Balance 240 ml 2 ml 885 ml -1000 ml Intake Oral 240 ml 480 ml Packed Cells 400 ml Blood Product IV Normal Saline Flush 2 ml 5 ml Hemodialysis 1000 ml # Voids 3 0 # Bowel Movements 1 1 Result Diagram: 07/06/17 0609 07/06/17 0609 Objective Remarks GENERAL: WBWN WF, On NC SKIN: Warm and dry. HEAD: Normocephalic. EYES: No scleral icterus. No injection or drainage. NECK: Supple, trachea midline. No JVD or lymphadenopathy. CARDIOVASCULAR: Regular rate and rhythm without murmurs, gallops, or rubs. RESPIRATORY: Breath sounds equal bilaterally. No accessory muscle use. GASTROINTESTINAL: Abdomen soft, non-tender, nondistended. MUSCULOSKELETAL: No cyanosis, or edema. BACK: Nontender without obvious deformity. No CVA tenderness. A/P Assessment and Plan VDRF, s/p Extubation COPD Ac renal Failure DM Nicotine use AF with RVR, converted to NSR PLAN: Supplement 02, keep sat 88-92% Monitor RYAN Tucker qid. Monitor H/H DC plans for SNF Jac Hammonds MD Jul 06, 2017 17:43
[2017-07-06] MEDS: ATORVASTATIN 40 MG TAB PO SCH (21:39)
[2017-07-07] VITALS (9 sets, daily range): BP systolic 128–146; BP diastolic 59–72; PULSE 37–71; RESP 17–20; TEMP 95.6–97; O2SAT 96–98
[2017-07-07] MEDS: DILTIAZEM HCL 60 MG TAB PO SCH ×4 (02:43→22:03)
[2017-07-07] MEDS: INSULIN NovoLIN REGULAR SUPPLEMENTAL SCALE SQ SCH ×4 (05:01→18:00)
[2017-07-07] MEDS: ISOSORBIDE MONONITRATE 30 MG TAB PO SCH (05:30)
[2017-07-07] MEDS: PROPRANOLOL HCL 10 MG TAB PO SCH ×3 (05:30→22:03)
[2017-07-07] MEDS: INSULIN DETEMIR 100 UNITS/ML VIAL SQ SCH (09:00)
[2017-07-07] MEDS: CEPHALEXIN MONOHYDRATE 250 MG CAP PO SCH ×2 (09:02→22:02)
[2017-07-07] MEDS: methylPREDNISolone SOD SUCC 40 MG/1 ML VIAL IV PUSH SCH ×2 (09:02→22:03)
[2017-07-07] MEDS: PANTOPRAZOLE SODIUM 40 MG VIAL IV PUSH SCH ×2 (09:02→22:03)
[2017-07-07] MEDS: VITAMIN B CMPLX/VITC/FOLIC AC CAP PO SCH (09:02)
[2017-07-07] MEDS: CALCIUM ACETATE 667 MG CAP PO SCH ×3 (09:03→18:12)
[2017-07-07] MEDS: FERROUS SULFATE 325 MG (65 MG ELEMENTAL IRON) TAB PO SCH (09:03)
[2017-07-07 09:04] LABS: AUTOMATED NEUTROPHIL # 7.6 TH/MM3 (1.8-7.7); BASOPHIL % 0.2 % (0.0-2.0); EOSINOPHIL % 0.1 % (0.0-4.0); LYMPH % 1.9 % (9.0-44.0); LYMPHOCYTE # 0.2 TH/MM3 (1.0-4.8); MEAN CELL VOLUME 92.1 FL (80.0-100.0); MEAN CORPUSCULAR HEMOGLOBIN 31.5 PG (27.0-34.0); MEAN CORPUSCULAR HGB CONC 34.2 % (32.0-36.0); MONO % 2.2 % (0.0-8.0); NEUT % 95.6 % (16.0-70.0); PLATELET COUNT 34 TH/MM3 (150-450); RED BLOOD COUNT 2.82 MIL/MM3 (4.00-5.30); RED CELL DISTRIBUTION WIDTH 17.5 % (11.6-17.2); WHITE BLOOD COUNT 7.9 TH/MM3 (4.0-11.0)
[2017-07-07] MEDS: BUDESONIDE-FORMOTEROL 160/4.5 MCG INHALER INH SCH ×2 (09:04→22:23)
[2017-07-07 09:08] LABS: HEMO FLAGS AUTO DIFF
[2017-07-07] MEDS: ONDANSETRON HCL 4 MG/2 ML VIAL IV PUSH PRN (09:13)
[2017-07-07 09:31] LABS: ALKALINE PHOSPHATASE 242 U/L (45-117); ALT (GPT) 92 U/L (10-53); ANION GAP 11 MEQ/L (5-15); AST (GOT) 105 U/L (15-37); BICARBONATE 26.2 MEQ/L (21.0-32.0); BLOOD UREA NITROGEN 70 MG/DL (7-18); CHLORIDE 98 MEQ/L (98-107); GLOMERULAR FILTRATION RATE 14 ML/MIN (>89); POTASSIUM 4.2 MEQ/L (3.5-5.1); SODIUM (NA) 135 MEQ/L (136-145); TOTAL BILIRUBIN ADULT 1.4 MG/DL (0.2-1.0)
--- NOTE | 2017-07-07 10:16 | HHI.NPPN ---
Subjective History of Present Illness 76-year-old female with past medical history of hypertension, diabetes mellitus, hyperlipidemia, ischemic heart disease, chronic kidney disease, chronic obstructive pulmonary disease was admitted because of generalized weakness, decreased urine output. I he was called to see the patient for elevated BUN and creatinine. The patient is known to me from before. She has been following with me in the office and last time I saw her was on May 04 and at that time her creatinine was 2.2 with given the GFR of 19-20 she had advanced stage IV chronic kidney disease most likely because of diabetic nephropathy. Additional Remarks Patient is alert, seen during HD, alert, no SOB, with nasal cannula, feeling better. Review of Systems General General Remarks Intubated and sedated. Objective Data Data Vital Signs Date Time Temp Pulse Resp B/P (MAP) Pulse Ox O2 Delivery O2 Flow Rate FiO2 07/07/17 08:00 95.6 62 17 128/59 (82) 96 07/07/17 06:14 65 07/07/17 05:14 95.7 64 18 129/60 (83) 96 07/07/17 03:01 37 07/07/17 01:00 71 07/07/17 00:12 96.1 69 18 129/65 (86) 96 07/06/17 22:50 85 07/06/17 21:04 96.0 76 18 135/59 (84) 95 07/06/17 21:02 95 Nasal Cannula 2.00 07/06/17 16:00 95.9 51 17 122/90 (101) 95 07/06/17 12:45 Nasal Cannula 2.00 07/06/17 12:40 96.4 66 17 153/70 (97) 97 07/06/17 11:01 78 07/06/17 11:01 78 07/06/17 10:30 2.00 -: 07/07/17 0658 07/07/17 0658 Physical Exam General Appearance: No Acute Distress, Comfortable Eyes Eye Exam: Pupils Equal Throat Throat Exam: Oral Mucosa [place] & Moist Neck Neck Exam: Neck Supple Pulmonary Resp Exam: Breath Sounds Equal, Rhonchi, Decreased Bases, Diminished Breath Sounds, Poor Inspiratory Effort Cardiology CV Exam: Regular, Normal Sinus Rhythm Gastrointestinal/Abdomen GI Exam: Soft, Non-Tender, Bowel Sounds Present, Distended Extremeties Extremities Exam: Trace Edema Neurologic Neuro Exam: Alert, Awake, Oriented Psychiatric Psych Exam: Appropriate Responses Assessment/Plan Assessment Summary: [place]/Acute Renal Failure, Hypertension, CKD Stage IV Problem List: (1) Chronic kidney disease (CKD) ICD Codes: N18.9 - Chronic kidney disease, unspecified (2) Oliguria ICD Codes: R34 - Anuria and oliguria (3) Diarrhea ICD Codes: R19.7 - Diarrhea, unspecified (4) Metabolic acidosis ICD Codes: E87.2 - Acidosis Status: Acute (5) Uremia ICD Codes: N19 - Unspecified kidney failure Status: Acute (6) Acute renal failure ICD Codes: N17.9 - Acute kidney failure, unspecified Status: Acute Plan Patient has advance stage 4 chronic kidney disease, approach stage 5. Started on HD. Patient has COPD with high CO2 and developing SOB off and on. Has tunneled catheter for HD Vascular called, they will do AVF as out patient. HD done yesterday. Out patient HD arrangement. On Nepro, and Keflex for cellulitis at left arm IV site. Hgb. dropped, for transfused and now stable. On Epogen with HD. HD now, to get her back on MWF HD. she is MWF as out patient. For D/C to SNF. Problem Qualifiers (1) Chronic kidney disease (CKD): Qualified Codes: N18.5 - Chronic kidney disease, stage 5 (2) Acute renal failure: Qualified Codes: N17.9 - Acute kidney failure, unspecified Lexy Lee MD Jul 07, 2017 10:16
[2017-07-07 10:28] LABS: BANDS 3 % (0-6); MYELOCYTES 2 % (0-0); NEUTROPHIL # MANUAL DIFF 7.7 TH/MM3 (1.8-7.7); POLYS (SEG NEUTROPHILS) 92 % (16-70); TOXIC VACUOLATION PRESENT (NONE SEEN); WBC DIFF SAMPLE 100
[2017-07-07 10:36] LABS: ACANTHOCYTES OCC (NORMAL); OVALOCYTES 1+ (NORMAL); PLATELET ESTIMATE SMEAR LOW (NORMAL); PLATELET MORPHOLOGY NORMAL (NORMAL); SCAN/DIFF FINAL DIFF MANUAL
--- NOTE | 2017-07-07 11:12 | HHI.PR ---
Subjective Remarks 76 YOWF with VDRF,Ac renal Failure,DM, Met acidosis No Fever Alert awake feels weak, mild sob Breathing better Undergoing HD Objective Vital Signs Vital Signs Date Time Temp Pulse Resp B/P (MAP) Pulse Ox O2 Delivery O2 Flow Rate FiO2 07/07/17 10:40 96 07/07/17 08:00 95.6 62 17 128/59 (82) 96 07/07/17 06:14 65 07/07/17 05:14 95.7 64 18 129/60 (83) 96 07/07/17 03:01 37 07/07/17 01:00 71 07/07/17 00:12 96.1 69 18 129/65 (86) 96 07/06/17 22:50 85 07/06/17 21:04 96.0 76 18 135/59 (84) 95 07/06/17 21:02 95 Nasal Cannula 2.00 07/06/17 16:00 95.9 51 17 122/90 (101) 95 07/06/17 12:45 Nasal Cannula 2.00 07/06/17 12:40 96.4 66 17 153/70 (97) 97 I/O 07/06/17 07/06/17 07/06/17 07/07/17 07/07/17 07/07/17 07:00 15:00 23:00 07:00 15:00 23:00 Intake Total 720 ml Output Total 1000 ml Balance -1000 ml 720 ml Intake Oral 720 ml Hemodialysis 1000 ml # Voids 0 0 # Bowel Movements 1 3 0 Result Diagram: 07/07/1758 07/07/17 0658 Objective Remarks GENERAL: WBWN WF, On NC SKIN: Warm and dry. HEAD: Normocephalic. EYES: No scleral icterus. No injection or drainage. NECK: Supple, trachea midline. No JVD or lymphadenopathy. CARDIOVASCULAR: Regular rate and rhythm without murmurs, gallops, or rubs. RESPIRATORY: Breath sounds equal bilaterally. No accessory muscle use. GASTROINTESTINAL: Abdomen soft, non-tender, nondistended. MUSCULOSKELETAL: No cyanosis, or edema. BACK: Nontender without obvious deformity. No CVA tenderness. A/P Assessment and Plan VDRF, s/p Extubation COPD Ac renal Failure DM Nicotine use AF with RVR, converted to NSR PLAN: Supplement 02, keep sat 88-92% Monitor BS Brandonbs qid. Monitor H/H DC plans for [facility] Jac Hammonds MD Jul 07, 2017 11:12
[2017-07-07] MEDS: SODIUM CHLOR 0.9% 1000 ML INJ 1,000 ML OTHER PRN (11:30)
[2017-07-07] MEDS: GENTAMICIN SULFATE (DIALYSIS USE ONLY) 20 MG/2 ML VIAL OTHER PRN (11:30)
[2017-07-07] MEDS: HEPARIN SODIUM - IV 10,000 UNITS/10 ML VIAL PRN (11:30)
--- NOTE | 2017-07-07 13:02 | HHI.PR ---
Subjective Remarks Hypoglycemia nausea and vomiting this morning. Clinically patient does not seem stable for discharge at this time. Dialysis today. Objective Vital Signs Date Time Temp Pulse Resp B/P (MAP) Pulse Ox O2 Delivery O2 Flow Rate FiO2 07/07/17 10:40 96 07/07/17 08:00 95.6 62 17 128/59 (82) 96 07/07/17 06:14 65 07/07/17 05:14 95.7 64 18 129/60 (83) 96 07/07/17 03:01 37 07/07/17 01:00 71 07/07/17 00:12 96.1 69 18 129/65 (86) 96 07/06/17 22:50 85 07/06/17 21:04 96.0 76 18 135/59 (84) 95 07/06/17 21:02 95 Nasal Cannula 2.00 07/06/17 16:00 95.9 51 17 122/90 (101) 95 I/O 07/06/17 07/06/17 07/06/17 07/07/17 07/07/17 07/07/17 07:00 15:00 23:00 07:00 15:00 23:00 Intake Total 720 ml Output Total 1000 ml 1500 ml Balance -1000 ml 720 ml -1500 ml Intake Oral 720 ml Hemodialysis 1000 ml 1500 ml # Voids 0 0 # Bowel Movements 1 3 0 Result Diagram: 07/07/1765707/07/17 0658 Objective Remarks GENERAL: NAD, A&Ox3 HEAD: Normocephalic. NECK: Supple, trachea midline. No lymphadenopathy. EYES: No scleral icterus. No injection or drainage. CARDIOVASCULAR: Irregularly irregular rate with tachycardic rhythm, without murmurs, gallops, or rubs. RESPIRATORY: Breath sounds equal bilaterally. No accessory muscle use. GASTROINTESTINAL: Abdomen soft, non-tender, nondistended. MUSCULOSKELETAL: No cyanosis, or edema. SKIN: Warm and dry. NEURO: No focal neurological deficitis. A/P Problem List: (1) Atrial fibrillation with RVR ICD Code: I48.91 - Unspecified atrial fibrillation Status: Resolved (2) COPD exacerbation ICD Code: J44.1 - Chronic obstructive pulmonary disease with (acute) exacerbation Status: Acute (3) Acute renal failure ICD Code: N17.9 - Acute kidney failure, unspecified Status: Acute (4) Chronic kidney disease (CKD) ICD Code: N18.9 - Chronic kidney disease, unspecified (5) Paroxysmal atrial fibrillation ICD Code: I48.0 - Paroxysmal atrial fibrillation Status: Acute Assessment and Plan Assessment and plan 76-year-old female admitted secondary to pneumonia with acute renal failure. Presently on chronic hemodialysis. Labs reviewed. Elevated potassium today. Anemia is present. Continue to monitor potassium and CBC. Labs ordered for further monitoring. Dialysis today. Nausea and vomiting and hypoglycemia this morning. Monitor blood sugars and monitor for improvement by mouth intake. A. fib RVR Baseline paroxysmal A. fib Now rate controlled Continue Cardizem Follow on telemetry Community-acquired pneumonia COPD exacerbation Treatment completed No further exacerbation Status post extubation 06/06/17 Continue oxygen as needed Continue Spiriva Continue Symbicort Chronic kidney disease stage IV End-stage renal disease Continue on hemodialysis Nephrology following Outpatient arrangements are in process R Permacath placed 06/22 Continue calcium acetate 1334 mg 3 times a day Gen. anxiety disorder Continue as needed Xanax Anemia Related to chronic kidney disease Continue Epogen Continue iron Diabetes mellitus type 2 Follow blood sugars Insulin sliding scale Diabetic diet DVT Prophylaxis Heparin Discharge Planning long term facility for OT and PT Outpatient Dialysis anticipated Problem Qualifiers (1) Acute renal failure: Qualified Codes: N17.9 - Acute kidney failure, unspecified (2) Chronic kidney disease (CKD): Qualified Codes: N18.5 - Chronic kidney disease, stage 5 Laci Ibarra MD Jul 07, 2017 13:02
--- NOTE | 2017-07-07 13:56 | PD.ONC.PN ---
Subjective Subjective Remarks Afebrile Had hypoglycemia with nausea and vomiting this morning Denies bleeding "I feel terrible" Objective Data Date Time Temp Pulse Resp B/P (MAP) Pulse Ox O2 Delivery O2 Flow Rate FiO2 07/07/17 10:40 96 07/07/17 08:00 95.6 62 17 128/59 (82) 96 07/07/17 06:14 65 07/07/17 05:14 95.7 64 18 129/60 (83) 96 07/07/17 03:01 37 07/07/17 01:00 71 07/07/17 00:12 96.1 69 18 129/65 (86) 96 07/06/17 22:50 85 07/06/17 21:04 96.0 76 18 135/59 (84) 95 07/06/17 21:02 95 Nasal Cannula 2.00 07/06/17 16:00 95.9 51 17 122/90 (101) 95 07/07/17 07/07/17 07/07/17 07:00 15:00 23:00 Output Total 1500 ml Balance -1500 ml Result Diagram: 07/07/17 0658 07/07/17 0658 Laboratory Results Laboratory Tests Test 07/07/17 06:58 White Blood Count 7.9 TH/MM3 Red Blood Count 2.82 MIL/MM3 Hemoglobin 8.9 GM/DL Hematocrit 26.0 % Mean Corpuscular Volume 92.1 FL Mean Corpuscular Hemoglobin 31.5 PG Mean Corpuscular Hemoglobin Concent 34.2 % Red Cell Distribution Width 17.5 % Platelet Count 34 TH/MM3 Mean Platelet Volume 10.5 FL Neutrophils (%) (Auto) 95.6 % Lymphocytes (%) (Auto) 1.9 % Monocytes (%) (Auto) 2.2 % Eosinophils (%) (Auto) 0.1 % Basophils (%) (Auto) 0.2 % Neutrophils # (Auto) 7.6 TH/MM3 Lymphocytes # (Auto) 0.2 TH/MM3 Monocytes # (Auto) 0.2 TH/MM3 Eosinophils # (Auto) 0.0 TH/MM3 Basophils # (Auto) 0.0 TH/MM3 CBC Comment AUTO DIFF Differential Total Cells Counted 100 Neutrophils % (Manual) 92 % Band Neutrophils % 3 % Lymphocytes % 3 % Neutrophils # (Manual) 7.7 TH/MM3 Myelocytes 2 % Differential Comment FINAL DIFF MANUAL Toxic Vacuolation PRESENT Platelet Estimate LOW Platelet Morphology Comment NORMAL Ovalocytes 1+ Acanthocytes OCC Blood Urea Nitrogen 70 MG/DL Creatinine 3.24 MG/DL Random Glucose 67 MG/DL Total Protein 5.8 GM/DL Albumin 3.2 GM/DL Calcium Level 8.1 MG/DL Alkaline Phosphatase 242 U/L Aspartate Amino Transf (AST/SGOT) 105 U/L Alanine Aminotransferase (ALT/SGPT) 92 U/L Total Bilirubin 1.4 MG/DL Sodium Level 135 MEQ/L Potassium Level 4.2 MEQ/L Chloride Level 98 MEQ/L Carbon Dioxide Level 26.2 MEQ/L Anion Gap 11 MEQ/L Estimat Glomerular Filtration Rate 14 ML/MIN Administered Medications Medications (Trade) Dose Ordered Sig/[place] Route PRN Reason Start Time Stop Time Status Last Admin Dose Admin Sodium Chloride (NS Flush) 2 ml UNSCH PRN IV FLUSH FLUSH AFTER USING IV ACCESS 05/30/17 21:45 06/23/17 05:39 Sodium Chloride (NS Flush) 2 ml BID IV FLUSH 05/31/17 09:00 07/06/17 21:39 Atorvastatin Calcium (Lipitor) 80 mg HS PO 05/31/17 21:00 Future hold 07/06/17 21:39 Ondansetron HCl (Zofran Inj) 4 mg Q6HR PRN IV PUSH NAUSEA OR VOMITING 05/31/17 13:00 07/07/17 09:13 Sodium Chloride 1,000 ml @ 0 mls/hr Q0M PRN OTHER For Prime & Rinse Back 06/01/17 09:07 07/07/17 11:30 Heparin Sodium (Porcine) (Heparin Inj) 8,000 units UNSCH PRN IV FLUSH WITH DIALYSIS 06/01/17 09:15 07/06/17 11:27 Sodium Chloride 1,000 ml @ 200 mls/hr Q5H PRN IV WITH DIALYSIS 06/01/17 09:07 06/16/17 14:53 Mannitol (Mannitol Inj) 12.5 gm UNSCH PRN IV WITH DIALYSIS 06/01/17 09:15 06/02/17 08:06 Albumin Human 100 ml @ 60 mls/hr UNSCH PRN IV WITH DIALYSIS 06/01/17 09:15 07/04/17 10:26 Sodium Chloride (NS Flush) 5 ml UNSCH PRN IV FLUSH WITH DIALYSIS 06/01/17 09:15 06/24/17 09:31 Heparin Sodium (Porcine) (Heparin Inj) UNSCH PRN .XX WITH DIALYSIS 06/01/17 09:15 07/07/17 11:30 Gentamicin Sulfate (Gentamicin (Dialysis) Inj) 20 mg UNSCH PRN OTHER WITH DIALYSIS 06/01/17 09:15 07/07/17 11:30 Diphenhydramine HCl (Benadryl) 25 mg UNSCH PRN PO for hives/itching/anaphylaxis 06/01/17 09:15 07/05/17 10:55 Clonidine (Catapres) 0.1 mg UNSCH PRN PO for BP > 180/100 X 2 readings 06/01/17 09:15 06/22/17 02:28 Sennosides (Senokot) 17.2 mg Q12H PRN PO Moderate constipation 06/01/17 18:30 07/04/17 13:56 Alprazolam (Xanax) 0.5 mg Q8H PRN PO MILD ANXIETY 06/06/17 13:00 07/04/17 21:50 Epoetin Geoffrey (Epogen Inj) 10,000 units UNSCH PRN IV PUSH WITH DIALYSIS 06/07/17 21:30 07/06/17 11:27 Vitamin B Complex/ Vit C/Folic Acid (Nephrocaps) 1 cap DAILY PO 06/08/17 09:00 07/07/17 09:02 Calcium Acetate (Phoslo) 1,334 mg TID PO 06/08/17 09:00 07/07/17 09:03 Ferrous Sulfate (Ferrous Sulfate) 325 mg DAILY PO 06/09/17 09:00 07/07/17 09:03 Loperamide HCl (Imodium Liq) 2 mg Q4H PRN PO DIARRHEA 06/10/17 13:00 06/21/17 20:35 Sodium Chloride (NS Flush) DAILY IV FLUSH 06/12/17 09:00 07/05/17 08:16 Budesonide/ Formoterol Fumarate (Symbicort 160-4.5 Inh) 2 puff Q12HR INH 06/17/17 09:00 07/07/17 09:04 Acetaminophen/ Hydrocodone Bitart ([place] 5-325 Mg) 1 tab Q6H PRN PO pain 1-5 06/17/17 06:30 11/30/17 15:08 Insulin Detemir (Levemir Inj) 25 units Q12HR SQ 06/18/17 09:00 Future hold 07/06/17 21:40 Albuterol Sulfate (Albuterol Neb) 2.5 mg Q2HR NEB PRN NEB dyspnea 06/22/17 06:45 06/27/17 19:52 Hydralazine HCl (Apresoline) 100 mg Q8HR PO 06/22/17 14:00 Future Hold 06/24/17 05:29 Isosorbide Mononitrate (Imdur) 30 mg DAILY@07 PO 06/22/17 07:00 07/07/17 05:30 Miscellaneous (Pill Splitter) 1 ea UNSCH PRN OTHER SEE LABEL COMMENTS 06/22/17 18:00 06/23/17 14:16 Methylprednisolone Sodium Succinate (SoluMEDROL INJ) 40 mg Q12H IV PUSH 06/28/17 10:00 07/07/17 09:02 Acetaminophen/ Hydrocodone Bitart ([place] 5-325 Mg) 2 tab Q6H PRN PO PAIN 6-10 06/28/17 08:15 07/01/17 00:07 Insulin Human Regular (NovoLIN R SUPPLEMENTAL SCALE) 1 Q6HR SQ 06/28/17 12:00 07/05/17 18:01 Pantoprazole Sodium (Protonix Inj) 40 mg Q12HR IV PUSH 06/28/17 13:00 07/07/17 09:02 Propranolol HCl (Inderal) 10 mg Q8HR PO 06/28/17 14:00 07/06/17 21:40 Diltiazem HCl (Cardizem) 60 mg Q6H PO 06/29/17 08:00 07/07/17 09:03 Cephalexin Monohydrate (Keflex) 250 mg BID PO 07/04/17 21:00 07/07/17 09:02 Objective Remarks GENERAL: Chronically ill appearing older female, resting in bed in no acute distress. SKIN: Warm and dry. Multiple bruises. No oozing from lines. HEAD: Normocephalic. EYES: No injection or drainage. NECK: Supple, trachea midline. CARDIOVASCULAR: Regular rate and rhythm without murmurs. RESPIRATORY: Clear anteriorly. Breathing unlabored at rest. GASTROINTESTINAL: Abdomen soft, non-tender, nondistended. EXTREMITIES: No cyanosis, or edema. MUSCULOSKELETAL: Generalized weakness. NEUROLOGICAL: No obvious focal deficit. Awake, alert, and oriented x3. Assessment/Plan Problem List: (1) DVT of upper extremity (deep vein thrombosis) ICD Codes: I82.629 - Acute embolism and thrombosis of deep veins of unspecified upper extremity Status: Acute Plan: Anticoagulation on hold due to acute GI bleed, melena/BRBPR, anemia and thrombocytopenia. LUE previous internal jugular vein thrombus, L cephalic vein persist on FU US today. (2) Acute blood loss anemia ICD Codes: D62 - Acute posthemorrhagic anemia Status: Acute Plan: Supportive transfusion. Likely etiology of anemia/thrombocytopenia. Work up negative: HIT neg, PAT neg, retic high c/w blood loss anemia. EGD/colonoscopy 06/19-->gastritis in the antrum. +large hiatal hernia. Colonoscopy showed ulcer in the cecum. These were treated with clips. There is no active bleeding. She does not have esophageal varices. EGD/colonoscopy 06/23--> erythematous gastritis in the gastric antrum; Severe diverticulosis in the sigmoid colon. 3 x 5cm colitis was found in the transverse colon; The mucosa was erythematous, friable, ulcerated and oozing blood; Injected with 5 cc of epinephrine, and ablated with APC. Good hemostasis obtained Bleeding scan (06/28/17)---> No definite evidence of active colonic GI bleeding is noted. 2 very tiny areas are identified the right midabdomen but they do not correspond with bowel activity. Assessment 76y/o female admitted with generalized weakness. Hematology consulted for anemia /thrombocytopenia. history of hypertension, diabetes, hyperlipidemia, ischemic heart disease, chronic kidney disease on hemodialysis. COPD Plan 1. Thrombocytopenia worsening; agree with holding discharge. 2. Transfuse for Hgb less than 8 or platelets less than 20k or for any bleeding. 3. Monitor CBC. 4. Hold anticoagulation until platelets consistently greater than 100k. Attending Statement The exam, history, and the medical decision-making described in the above note were completed with the assistance of the mid-level provider. I reviewed and agree with the findings presented. I attest that I had a [id number] encounter with the patient on the same day, and personally performed and documented my assessment and findings in the medical record. Hgb 8.9 and platelet 34, noted bruising more prominent along dialysis catheter site. L forearm scab no bleed. Denies any GI bleeding- melena or BRBPR No overt bleeding but slow decline in hgb and platelet suggest slower loss. Work up negative for other etiology, Unable to exclude anemia chronic illness/chronic kidney disease- but rapidity of decline in hgb suggest a loss rather than bone marrow failure. Transfuse support. Problem Qualifiers (1) DVT of upper extremity (deep vein thrombosis): Qualified Codes: I82.622 - Acute embolism and thrombosis of deep veins of left upper extremity Hoa Case Jul 07, 2017 13:56 Socorro Foster MD Jul 07, 2017 19:30
--- NOTE | 2017-07-07 14:21 | HHI.HCPN ---
Reason for visit a. To assist with evaluation and management of symptoms including: Dyspnea, anxiety, debility, nausea b. To assist medical decision maker(s) with: better understanding of current medical conditions; weighing benefits/burdens of medical treatment options; making medical treatment decisions. Subjective/Interval History Interim history: * Laboratory: WBC 7.9, Hgb 8.9 (dropped to 6.9 07/05, transfused with 1 unit PRBC), HCT 26.0, platelets 34, sodium 135, potassium 4.2, BUN 70, creatinine 3.24, calcium 8.1. * Radiology: Abdominal ultrasound is negative. No new studies. Consultations: * Hematology: Following for thrombocytopenia, thought to be due to consumption. Hold anticoagulation until platelets greater than 100 consistently due to GI bleed/BRBPR. * Gastroenterology: EGD 06/23 showed erythematous gastritis in the gastric antrum with severe diverticulosis in the sigmoid colon. 3 x 5 cm colitis was found in the transverse colon. Mucosa was erythematous, friable, ulcerated and oozing blood. Injected with 5 cc of epinephrine and ablated with APC with good hemostasis obtained. Continue Protonix. GI has signed off. * Nephrology: Following for dialysis management, will follow as outpatient. AV fistula placement planned as outpatient. Currently has tunneled catheter for dialysis. Developed mild hypoglycemia this morning with a lab glucose of 67 treated with snacks. 11 AM glucose, 83. Patient complains of nausea and vomiting this morning with the low glucose. Feeling better now, sleepy after dialysis. Discharge held for today. If stable likely discharge over the weekend to rehabilitation. . Advance Directives Health Care Surrogate: Copy in medical record Advance Directive Specifics Health Care Surrogate(s): Dorothea Gonzalez, patient's daughter Objective Vital Signs Date Time Temp Pulse Resp B/P (MAP) Pulse Ox O2 Delivery O2 Flow Rate FiO2 07/07/17 10:40 96 07/07/17 08:00 95.6 62 17 128/59 (82) 96 07/07/17 06:14 65 07/07/17 05:14 95.7 64 18 129/60 (83) 96 07/07/17 03:01 37 07/07/17 01:00 71 07/07/17 00:12 96.1 69 18 129/65 (86) 96 07/06/17 22:50 85 07/06/17 21:04 96.0 76 18 135/59 (84) 95 07/06/17 21:02 95 Nasal Cannula 2.00 07/06/17 16:00 95.9 51 17 122/90 (101) 95 Intake & Output 07/07/17 07/07/17 07:00 19:00 Output Total 1500 ml Balance -1500 ml Hemodialysis 1500 ml # Voids 0 # Bowel Movements 0 Physical Exam CONSTITUTIONAL/GENERAL: This is an elderly female patient, in no apparent distress. TUBES/LINES/DRAINS: PIV x1, Vas cath SKIN: No jaundice, rashes, or lesions. Right ACF bruise. Skin temperature appropriate. Not diaphoretic. Painful excoriation on coccyx. CARDIOVASCULAR: Irregular rhythm, controlled rate without murmurs, gallops, or rubs. No JVD. Peripheral pulses symmetric. RESPIRATORY/CHEST: Symmetric, unlabored respirations. Clear to auscultation. Breath sounds equal bilaterally. No wheezes, rales, or rhonchi. GASTROINTESTINAL: Abdomen soft, non-tender, nondistended. No hepato-splenomegaly , or palpable masses. No guarding. Bowel sounds present. GENITOURINARY: Without palpable bladder distension. MUSCULOSKELETAL: Extremities without clubbing, cyanosis, or edema. No joint tenderness or effusion noted. No calf tenderness. No mottling or clubbing. NEUROLOGICAL: Alert and oriented 4, no obvious deficits. PSYCHIATRIC: Cooperative. . Diagnostic Tests Laboratory Laboratory Tests Test 07/04/17 15:30 07/05/17 04:20 07/05/17 23:59 07/06/17 06:09 Hemoglobin 7.4 GM/DL (11.6-15.3) 6.9 GM/DL (11.6-15.3) 9.4 GM/DL (11.6-15.3) 9.2 GM/DL (11.6-15.3) Hematocrit 22.3 % (35.0-46.0) 20.8 % (35.0-46.0) 27.4 % (35.0-46.0) 28.0 % (35.0-46.0) Potassium Level 4.1 MEQ/L (3.5-5.1) 4.7 MEQ/L (3.5-5.1) 5.3 MEQ/L (3.5-5.1) 5.7 MEQ/L (3.5-5.1) White Blood Count 8.1 TH/MM3 (4.0-11.0) 11.2 TH/MM3 (4.0-11.0) 10.9 TH/MM3 (4.0-11.0) Red Blood Count 2.35 MIL/MM3 (4.00-5.30) 3.01 MIL/MM3 (4.00-5.30) 3.02 MIL/MM3 (4.00-5.30) Mean Corpuscular Volume 88.4 FL (80.0-100.0) 91.1 FL (80.0-100.0) 92.5 FL (80.0-100.0) Mean Corpuscular Hemoglobin 29.2 PG (27.0-34.0) 31.1 PG (27.0-34.0) 30.5 PG (27.0-34.0) Mean Corpuscular Hemoglobin Concent 33.0 % (32.0-36.0) 34.1 % (32.0-36.0) 33.0 % (32.0-36.0) Red Cell Distribution Width 17.8 % (11.6-17.2) 17.3 % (11.6-17.2) 17.4 % (11.6-17.2) Platelet Count 45 TH/MM3 (150-450) 49 TH/MM3 (150-450) 45 TH/MM3 (150-450) Mean Platelet Volume 9.1 FL (7.0-11.0) 10.5 FL (7.0-11.0) 10.1 FL (7.0-11.0) Neutrophils (%) (Auto) 95.1 % (16.0-70.0) 95.0 % (16.0-70.0) 95.4 % (16.0-70.0) Lymphocytes (%) (Auto) 1.7 % (9.0-44.0) 1.8 % (9.0-44.0) 2.1 % (9.0-44.0) Monocytes (%) (Auto) 2.9 % (0.0-8.0) 2.9 % (0.0-8.0) 2.2 % (0.0-8.0) Eosinophils (%) (Auto) 0.0 % (0.0-4.0) 0.1 % (0.0-4.0) 0.0 % (0.0-4.0) Basophils (%) (Auto) 0.3 % (0.0-2.0) 0.2 % (0.0-2.0) 0.3 % (0.0-2.0) Neutrophils # (Auto) 7.7 TH/MM3 (1.8-7.7) 10.7 TH/MM3 (1.8-7.7) 10.4 TH/MM3 (1.8-7.7) Lymphocytes # (Auto) 0.1 TH/MM3 (1.0-4.8) 0.2 TH/MM3 (1.0-4.8) 0.2 TH/MM3 (1.0-4.8) Monocytes # (Auto) 0.2 TH/MM3 (0-0.9) 0.3 TH/MM3 (0-0.9) 0.2 TH/MM3 (0-0.9) Eosinophils # (Auto) 0.0 TH/MM3 (0-0.4) 0.0 TH/MM3 (0-0.4) 0.0 TH/MM3 (0-0.4) Basophils # (Auto) 0.0 TH/MM3 (0-0.2) 0.0 TH/MM3 (0-0.2) 0.0 TH/MM3 (0-0.2) CBC Comment AUTO DIFF AUTO DIFF AUTO DIFF Differential Comment AUTO DIFF CONFIRMED AUTO DIFF CONFIRMED AUTO DIFF CONFIRMED Platelet Estimate LOW (NORMAL) LOW (NORMAL) Platelet Morphology Comment NORMAL (NORMAL) NORMAL (NORMAL) Basophilic Stippling MOD (NORMAL) Blood Urea Nitrogen 88 MG/DL (7-18) 116 MG/DL (7-18) 116 MG/DL (7-18) Creatinine 4.28 MG/DL (0.50-1.00) 4.71 MG/DL (0.50-1.00) 4.91 MG/DL (0.50-1.00) Random Glucose 137 MG/DL (74-106) 147 MG/DL (74-106) 105 MG/DL (74-106) Total Protein 6.1 GM/DL (6.4-8.2) 6.4 GM/DL (6.4-8.2) Albumin 3.8 GM/DL (3.4-5.0) 3.7 GM/DL (3.4-5.0) Calcium Level 8.0 MG/DL (8.5-10.1) 8.5 MG/DL (8.5-10.1) 8.5 MG/DL (8.5-10.1) Alkaline Phosphatase 170 U/L (45-117) 197 U/L (45-117) Aspartate Amino Transf (AST/SGOT) 58 U/L (15-37) 75 U/L (15-37) Alanine Aminotransferase (ALT/SGPT) 51 U/L (10-53) 66 U/L (10-53) Total Bilirubin 1.4 MG/DL (0.2-1.0) 1.6 MG/DL (0.2-1.0) Sodium Level 134 MEQ/L (136-145) 132 MEQ/L (136-145) 131 MEQ/L (136-145) Chloride Level 96 MEQ/L (98-107) 95 MEQ/L (98-107) 93 MEQ/L (98-107) Carbon Dioxide Level 26.5 MEQ/L (21.0-32.0) 25.0 MEQ/L (21.0-32.0) 23.3 MEQ/L (21.0-32.0) Anion Gap 12 MEQ/L (5-15) 12 MEQ/L (5-15) 15 MEQ/L (5-15) Estimat Glomerular Filtration Rate 10 ML/MIN (>89) 9 ML/MIN (>89) 9 ML/MIN (>89) Ovalocytes 1+ (NORMAL) Acanthocytes OCC (NORMAL) Magnesium Level 2.1 MG/DL (1.5-2.5) Troponin I 0.23 NG/ML (0.02-0.05) 0.23 NG/ML (0.02-0.05) B-Type Natriuretic Peptide 820 PG/ML (0-100) Test 07/06/17 12:34 07/07/17 06:58 Troponin I 0.24 NG/ML (0.02-0.05) White Blood Count 7.9 TH/MM3 (4.0-11.0) Red Blood Count 2.82 MIL/MM3 (4.00-5.30) Hemoglobin 8.9 GM/DL (11.6-15.3) Hematocrit 26.0 % (35.0-46.0) Mean Corpuscular Volume 92.1 FL (80.0-100.0) Mean Corpuscular Hemoglobin 31.5 PG (27.0-34.0) Mean Corpuscular Hemoglobin Concent 34.2 % (32.0-36.0) Red Cell Distribution Width 17.5 % (11.6-17.2) Platelet Count 34 TH/MM3 (150-450) Mean Platelet Volume 10.5 FL (7.0-11.0) Neutrophils (%) (Auto) 95.6 % (16.0-70.0) Lymphocytes (%) (Auto) 1.9 % (9.0-44.0) Monocytes (%) (Auto) 2.2 % (0.0-8.0) Eosinophils (%) (Auto) 0.1 % (0.0-4.0) Basophils (%) (Auto) 0.2 % (0.0-2.0) Neutrophils # (Auto) 7.6 TH/MM3 (1.8-7.7) Lymphocytes # (Auto) 0.2 TH/MM3 (1.0-4.8) Monocytes # (Auto) 0.2 TH/MM3 (0-0.9) Eosinophils # (Auto) 0.0 TH/MM3 (0-0.4) Basophils # (Auto) 0.0 TH/MM3 (0-0.2) CBC Comment AUTO DIFF Differential Total Cells Counted 100 Neutrophils % (Manual) 92 % (16-70) Band Neutrophils % 3 % (0-6) Lymphocytes % 3 % (9-44) Neutrophils # (Manual) 7.7 TH/MM3 (1.8-7.7) Myelocytes 2 % (0-0) Differential Comment FINAL DIFF MANUAL Toxic Vacuolation PRESENT (NONE SEEN) Platelet Estimate LOW (NORMAL) Platelet Morphology Comment NORMAL (NORMAL) Ovalocytes 1+ (NORMAL) Acanthocytes OCC (NORMAL) Blood Urea Nitrogen 70 MG/DL (7-18) Creatinine 3.24 MG/DL (0.50-1.00) Random Glucose 67 MG/DL (74-106) Total Protein 5.8 GM/DL (6.4-8.2) Albumin 3.2 GM/DL (3.4-5.0) Calcium Level 8.1 MG/DL (8.5-10.1) Alkaline Phosphatase 242 U/L (45-117) Aspartate Amino Transf (AST/SGOT) 105 U/L (15-37) Alanine Aminotransferase (ALT/SGPT) 92 U/L (10-53) Total Bilirubin 1.4 MG/DL (0.2-1.0) Sodium Level 135 MEQ/L (136-145) Potassium Level 4.2 MEQ/L (3.5-5.1) Chloride Level 98 MEQ/L (98-107) Carbon Dioxide Level 26.2 MEQ/L (21.0-32.0) Anion Gap 11 MEQ/L (5-15) Estimat Glomerular Filtration Rate 14 ML/MIN (>89) Result Diagram: 07/07/1765707/07/17657 Procedures 06/01-endotracheal intubation. 06/01-hemodialysis catheter placement in the right IJ vein 06/12-endotracheal intubation 06/12-left IJ central venous catheter placement 06/19-colonoscopy showing ulcers in the cecum, ascending colon, transverse colon and sigmoid diverticulosis. Biopsies taken. . 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 She has been twice, in the first and was then during her second marriage. She moved to [place] in 1993 and lives in her own home since that time. She has 1 daughter, Dorothea Gonzalez who lives in [place]. Spiritual: She is a non-practicing Baptism who would accept scale operator visits. Legal: She is currently able to make decisions for herself, however has designated her daughter Dorothea as her healthcare surrogate. Ethical issues impacting care: None noted at this time . Important Contacts Daughter-Dorothea Gonzalez Prognosis Her prognosis is guarded. She has been intubated twice and has required BiPAP to prevent a third intubation. She has smoked for approximately 60 years is morbidly obese and sedentary. She is now developed end-stage renal disease and is on dialysis. She has uncontrolled diabetes mellitus and anemia. She was found to have multiple ulcers on colonoscopy and is now on Procrit for combination anemia of chronic disease and GI blood loss. Given her debility from extended hospitalization and baseline decline she is at significant risk for falls, poor self-care and recurrent hospitalizations. . Code Status: Alternative Code Plan PLAN: Legal decision maker: She is currently able to make her own decisions but has designated her daughter, Dorothea Gonzalez as the healthcare surrogate decision- maker. Goals: Aggressive short of CPR. CODE STATUS: Alternative code, intubation only. SYMPTOMS: * Dyspnea: On 02 today, denies shortness of breath. At risk for continued respiratory compromise due to COPD, history of chronic tobacco use. * Anxiety: She has a chronic baseline anxiety for which she took Xanax at home. She is very happy that she has quit smoking and is showing no significant anxiety at this time. She is at risk for anxiety secondary to her high bleeding risk, transition to rehabilitation, unfamiliar surroundings. Case management planning for upcoming discharge. Patient's ultimate goal is to move to [place] near her daughter. As she is on hemodialysis, the complications of this are likely to increase her anxiety. She will require significant social support to make this transition. * Debility: She has been bedbound for over a month and has suffered significant debility from that. Physical therapy found her unable to stand unassisted and was able to sit up with repeated cuing for about 8 minutes before slumping to the left. She will need rehabilitative therapy. * Nausea: Nauseated this morning with hypoglycemia. States she had significant vomiting, resolved with Zofran. At risk for recurrence due to noncompliance with diabetes and diet. Palliative care will continue to follow the patient during hospital course as condition evolves, to assist patient/decision-maker with understanding of their medical conditions, weighing benefits/burdens of treatment options, for clarification of goals of treatment. Additionally will assist with any symptoms of palliative concern. . Attestation To help prompt me to consider important information that might be impacting today's encounter and assessment, information from prior notes written by myself or my colleagues may have been "brought forward" into today's note. My signature on this note, however, is an attestation that I personally performed the exam, history, and/or decision-making noted today, and, unless otherwise indicated, the interactions with patient, family, and staff as well as the review of records all occurred today. I also attest that the listed assessment and stated plan reflect my best clinical judgment today based on the combination of historical information, prior notes, and today's exam/ interactions. When time spent is documented, it refers only to time spent today by the signer, or if indicated, combined time spent today by collaborating physician/nurse practitioner. . Sangeeta Johnson Jul 07, 2017 14:21
[2017-07-07] MEDS: SODIUM CHLORIDE 0.9% FLUSH 10 ML FLUSH IV FLUSH SCH ×3 (15:28→22:03)
--- NOTE | 2017-07-07 17:03 | HHI.GIFU ---
Subjective Remarks Pt resting in bed, talking on phone. GI reconsulted for n/v. She says she vomited some this morning when her blood sugar was low but feels fine now and actually declines my evaluation, "I'm on the phone." Objective Vitals I&O Vital Signs Date Time Temp Pulse Resp B/P (MAP) Pulse Ox O2 Delivery O2 Flow Rate FiO2 07/07/17 16:00 96.2 53 17 146/66 (92) 98 07/07/17 15:52 97 2.00 07/07/17 10:40 96 07/07/17 08:00 95.6 62 17 128/59 (82) 96 07/07/17 06:14 65 07/07/17 05:14 95.7 64 18 129/60 (83) 96 07/07/17 03:01 37 07/07/17 01:00 71 07/07/17 00:12 96.1 69 18 129/65 (86) 96 07/06/17 22:50 85 07/06/17 21:04 96.0 76 18 135/59 (84) 95 07/06/17 21:02 95 Nasal Cannula 2.00 I/O 07/06/17 07/06/17 07/06/17 07/07/17 07/07/17 07/07/17 06:59 14:59 22:59 06:59 14:59 22:59 Intake Total 720 ml Output Total 1000 ml 1500 ml Balance -1000 ml 720 ml -1500 ml Intake Oral 720 ml Hemodialysis 1000 ml 1500 ml # Voids 0 0 # Bowel Movements 1 3 0 Laboratory Laboratory Tests Test 07/07/17 06:58 White Blood Count 7.9 Red Blood Count 2.82 Hemoglobin 8.9 Hematocrit 26.0 Mean Corpuscular Volume 92.1 Mean Corpuscular Hemoglobin 31.5 Mean Corpuscular Hemoglobin Concent 34.2 Red Cell Distribution Width 17.5 Platelet Count 34 Mean Platelet Volume 10.5 Neutrophils (%) (Auto) 95.6 Lymphocytes (%) (Auto) 1.9 Monocytes (%) (Auto) 2.2 Eosinophils (%) (Auto) 0.1 Basophils (%) (Auto) 0.2 Neutrophils # (Auto) 7.6 Lymphocytes # (Auto) 0.2 Monocytes # (Auto) 0.2 Eosinophils # (Auto) 0.0 Basophils # (Auto) 0.0 CBC Comment AUTO DIFF Differential Total Cells Counted 100 Neutrophils % (Manual) 92 Band Neutrophils % 3 Lymphocytes % 3 Neutrophils # (Manual) 7.7 Myelocytes 2 Differential Comment FINAL DIFF MANUAL Toxic Vacuolation PRESENT Platelet Estimate LOW Platelet Morphology Comment NORMAL Ovalocytes 1+ Acanthocytes OCC Blood Urea Nitrogen 70 Creatinine 3.24 Random Glucose 67 Total Protein 5.8 Albumin 3.2 Calcium Level 8.1 Alkaline Phosphatase 242 Aspartate Amino Transf (AST/SGOT) 105 Alanine Aminotransferase (ALT/SGPT) 92 Total Bilirubin 1.4 Sodium Level 135 Potassium Level 4.2 Chloride Level 98 Carbon Dioxide Level 26.2 Anion Gap 11 Estimat Glomerular Filtration Rate 14 Date/Time Source Procedure Growth Status 06/28/17 16:28 Blood Peripheral Aerobic Blood Culture - Final NO GROWTH IN 5 DAYS Complete 06/28/17 16:28 Blood Peripheral Anaerobic Blood Culture - Final NO GROWTH IN 5 DAYS Complete 06/13/17 18:31 Stool Stool Stool Occult Blood (MELISSA) - Final HEMOCCULT POSITIVE Complete 06/15/17 06:50 Nasal Aspirate Influenza Types A,B Antigen (MELISSA) - Final NEGATIVE FOR FLU A AND B ANTIGEN.... Complete 06/11/17 20:33 Urine Catheterized Urine Urine Culture - Final Lacey Glabrata Lacey Albicans Complete Physical Exam HEENT: Normocephalic; atraumatic; color pale, no juandice CHEST: Resp. even, unlabored further exam declined Assessment and Plan Plan ASSESSMENT: - GIB Rectal bleeding. S/P EGD/Colonoscopy (06/19/17)---> 1. Gastritis antrum -biopsy duodenum normal-biopsy 2. Retroflexed views revealed a hiatal hernia 1. Ulcer cecum-visible vessel- 2 clips applied ulcer in ascending colon-biopsy ulcer in transverse colon-biopsy diverticulosis sigmoid,descending 2. Retroflexed views revealed internal hemorrhoids 3. Retroflexed views revealed medium internal hemorrhoids 4. Revealed external hemorrhoids 5. Revealed decreased sphincter tone. She then had melena and underwent EGD with control of bleeding (06/23/17)---> Severe gastropathy with significant areas and they fundus of the stomach oozing blood this was cauterized by heat with reasonable control of the bleeding but there was significant surface area that has potential for rebleeding Patient has gastritis in the antrum also. She was transfused with PRBC and FFP and BB was recommended as soon as possible to try to reduce portal htn. She was then transferred to [facility] for active GI bleeding. The plan was for a GI bleeding scan and possible egd/colonoscopy yesterday, but she did not take prep. S/P Bleeding scan ()---> No definite evidence of active colonic GI bleeding is noted. 2 very tiny areas are identified the right midabdomen but they do not correspond with bowel activity. Rpt. EGD/Colonoscopy (06/30/17)----> There was LA Class B esophagitis noted, there was erythematous gastritis in the gastric antrum, normal duodenal mucosa, retroflexed views revealed no abnormalities. Severe diverticulosis was noted in the sigmoid colon, 3 x 5 cm colitis was found in the transverse colon; the mucosa was erythematous, friable, ulcerated and oozing blood, not clear what this area is? possible area of previous endoscopic therapy. Injected with 5 cc of epinephrine, and ablated with APC. Good hemostasis obtained, retroflexed revealed internal hemorrhoids, medium internal hemorrhoids, external hemorrhoids. Pathology gastric antral mucosa with reactive features and focal calcifications, neg. for H. pylori. No obvious active bleeding, but HH continues to slowly trend down. HH 6.9/20.8 today, getting PRBC. Anticoagulation on hold. Pt is a high risk for rebleed. - Cecal ulcer, s/p clipping. - Gastropathy. PPI, BB - Fatty liver, likely cirrhosis. US 06/28/17 with echogenic liver possibly fatty infiltration. Tiny amount of fluid adjacent to the liver. Small bilateral pleural effusions, s/p cholecystectomy. - Thrombocytopenia/Coagulopathy. - DVT Left IJ vein, superficial thrombus left cephalic vein. Hematology following, anticoagulation on hold for high risk of rebleeding. - Atrial fibrillation, - COPD/HCAP. Per [facility] - [facility], HD per nephrology. 3X week, HD today - HTN, Hyperlipidemia, CKD, DM, Anxiety per attending. 07/07/17 - GI reconsulted for n/v. Pt currently tolerating diet and not nauseous. Vomited few times this am and said her BG was low. She declined further evaluation stating "I'm on the phone." PLAN: - PAT - Monitor HH - Transfuse as necessary - Cont. PPI - Cont. Propranolol - Zofran as needed - Hematology following - Supportive care - Notify GI of active bleeding - Pt is a high risk for rebleeding from colon lesions. - Further recommendations to follow based on results of above - Angiogram with embolization if further bleeding - Rpt. Colonoscopy 3 months, EGD 1 year. - GI will sign off. please reconsult if needed. - Pt seen and exmained by Dr. Moseley and myself and this note is written on his behalf Radha Hoyt Jul 07, 2017 17:03
[2017-07-07] MEDS: ATORVASTATIN 40 MG TAB PO SCH (22:03)
[2017-07-07] MEDS: DEXTROSE 50% IN WATER 50 ML VIAL(D50) IV PUSH PRN (22:20)
[2017-07-08] VITALS (7 sets, daily range): BP systolic 126–146; BP diastolic 60–71; PULSE 54–106; RESP 17–20; TEMP 96.1–97.6; O2SAT 95–100
[2017-07-08] MEDS: INSULIN NovoLIN REGULAR SUPPLEMENTAL SCALE SQ SCH ×5 (01:29→23:30)
[2017-07-08] MEDS: INSULIN DETEMIR 100 UNITS/ML VIAL SQ SCH (01:36)
[2017-07-08] MEDS: DILTIAZEM HCL 60 MG TAB PO SCH ×4 (01:38→21:43)
[2017-07-08] MEDS: ALPRAZolam 0.25 MG TAB PO PRN (06:17)
[2017-07-08] MEDS: ISOSORBIDE MONONITRATE 30 MG TAB PO SCH (06:17)
[2017-07-08] MEDS: PROPRANOLOL HCL 10 MG TAB PO SCH ×3 (06:17→21:43)
[2017-07-08] MEDS: DEXTROSE 50% IN WATER 50 ML VIAL(D50) IV PUSH PRN (06:26)
[2017-07-08 06:48] LABS: AUTOMATED NEUTROPHIL # 9.1 TH/MM3 (1.8-7.7); BASOPHIL % 0.1 % (0.0-2.0); HEMATOCRIT 26.1 % (35.0-46.0); LYMPHOCYTE # 0.2 TH/MM3 (1.0-4.8); MEAN CELL VOLUME 92.1 FL (80.0-100.0); MEAN CORPUSCULAR HEMOGLOBIN 31.6 PG (27.0-34.0); MEAN CORPUSCULAR HGB CONC 34.3 % (32.0-36.0); MONO % 2.1 % (0.0-8.0); NEUT % 95.8 % (16.0-70.0); PLATELET COUNT 40 TH/MM3 (150-450); RED BLOOD COUNT 2.83 MIL/MM3 (4.00-5.30); RED CELL DISTRIBUTION WIDTH 17.4 % (11.6-17.2); WHITE BLOOD COUNT 9.5 TH/MM3 (4.0-11.0)
[2017-07-08 06:52] LABS: HEMO FLAGS AUTO DIFF
[2017-07-08 07:16] LABS: ANION GAP 10 MEQ/L (5-15); AST (GOT) 91 U/L (15-37); BICARBONATE 28.4 MEQ/L (21.0-32.0); BLOOD UREA NITROGEN 55 MG/DL (7-18); CHLORIDE 98 MEQ/L (98-107); GLOMERULAR FILTRATION RATE 16 ML/MIN (>89); POTASSIUM 3.7 MEQ/L (3.5-5.1); SODIUM (NA) 136 MEQ/L (136-145)
[2017-07-08 07:19] LABS: ALKALINE PHOSPHATASE 241 U/L (45-117); ALT (GPT) 99 U/L (10-53); TOTAL BILIRUBIN ADULT 1.4 MG/DL (0.2-1.0)
[2017-07-08 08:40] LABS: PLATELET ESTIMATE SMEAR LOW (NORMAL); PLATELET MORPHOLOGY NORMAL (NORMAL); SCAN/DIFF AUTO DIFF CONFIRMED
[2017-07-08] MEDS: FERROUS SULFATE 325 MG (65 MG ELEMENTAL IRON) TAB PO SCH (09:00)
[2017-07-08] MEDS: CEPHALEXIN MONOHYDRATE 250 MG CAP PO SCH ×2 (09:00→21:43)
[2017-07-08] MEDS: PANTOPRAZOLE SODIUM 40 MG VIAL IV PUSH SCH ×2 (09:00→21:43)
[2017-07-08] MEDS: VITAMIN B CMPLX/VITC/FOLIC AC CAP PO SCH (09:00)
[2017-07-08] MEDS: SODIUM CHLORIDE 0.9% FLUSH 10 ML FLUSH IV FLUSH SCH ×3 (09:00→21:44)
[2017-07-08] MEDS: CALCIUM ACETATE 667 MG CAP PO SCH ×3 (09:00→18:23)
[2017-07-08] MEDS: BUDESONIDE-FORMOTEROL 160/4.5 MCG INHALER INH SCH ×2 (09:00→21:44)
[2017-07-08] MEDS: methylPREDNISolone SOD SUCC 40 MG/1 ML VIAL IV PUSH SCH ×2 (09:14→21:43)
--- NOTE | 2017-07-08 12:13 | HHI.NPPN ---
Subjective History of Present Illness 76-year-old female with past medical history of hypertension, diabetes mellitus, hyperlipidemia, ischemic heart disease, chronic kidney disease, chronic obstructive pulmonary disease was admitted because of generalized weakness, decreased urine output. I he was called to see the patient for elevated BUN and creatinine. The patient is known to me from before. She has been following with me in the office and last time I saw her was on May 04 and at that time her creatinine was 2.2 with given the GFR of 19-20 she had advanced stage IV chronic kidney disease most likely because of diabetic nephropathy. Additional Remarks Patient is alert, no SOB, with nasal cannula, feeling better. Review of Systems General General Remarks Intubated and sedated. Objective Data Data Vital Signs Date Time Temp Pulse Resp B/P (MAP) Pulse Ox O2 Delivery O2 Flow Rate FiO2 07/08/17 11:58 96.4 76 19 144/70 (94) 98 07/08/17 08:00 96.1 65 20 146/67 (93) 100 07/08/17 06:14 97.6 76 20 145/68 (93) 95 07/08/17 00:00 69 07/08/17 00:00 97.2 54 20 126/60 (82) 97 07/07/17 22:12 2.50 07/07/17 20:00 97.0 68 20 131/72 (91) 97 07/07/17 16:00 96.2 53 17 146/66 (92) 98 07/07/17 15:52 97 2.00 -: 07/08/17 0610 07/08/17 0610 Physical Exam General Appearance: No Acute Distress, Comfortable Eyes Eye Exam: Pupils Equal Throat Throat Exam: Oral Mucosa [place] & Moist Neck Neck Exam: Neck Supple Pulmonary Resp Exam: Breath Sounds Equal, Rhonchi, Decreased Bases, Diminished Breath Sounds, Poor Inspiratory Effort Cardiology CV Exam: Regular, Normal Sinus Rhythm Gastrointestinal/Abdomen GI Exam: Soft, Non-Tender, Bowel Sounds Present, Distended Extremeties Extremities Exam: Trace Edema Neurologic Neuro Exam: Alert, Awake, Oriented Psychiatric Psych Exam: Appropriate Responses Assessment/Plan Assessment Summary: [place]LE/Acute Renal Failure, Hypertension, CKD Stage IV Problem List: (1) Chronic kidney disease (CKD) ICD Codes: N18.9 - Chronic kidney disease, unspecified (2) Oliguria ICD Codes: R34 - Anuria and oliguria (3) Diarrhea ICD Codes: R19.7 - Diarrhea, unspecified (4) Metabolic acidosis ICD Codes: E87.2 - Acidosis Status: Acute (5) Uremia ICD Codes: N19 - Unspecified kidney failure Status: Acute (6) Acute renal failure ICD Codes: N17.9 - Acute kidney failure, unspecified Status: Acute Plan Patient has advance stage 4 chronic kidney disease, approach stage 5. Started on HD. Patient has COPD with high CO2 and developing SOB off and on. Has tunneled catheter for HD Vascular called, they will do AVF as out patient. HD done yesterday. Out patient HD arrangement. On Nepro, and Keflex for cellulitis at left arm IV site. Hgb. dropped, for transfused and now stable. On Epogen with HD. HD done yesterday, to get her back on MWF HD. she is MWF as out patient. For D/C to SNF, when arrangements done. Problem Qualifiers (1) Chronic kidney disease (CKD): Qualified Codes: N18.5 - Chronic kidney disease, stage 5 (2) Acute renal failure: Qualified Codes: N17.9 - Acute kidney failure, unspecified Lexy Lee MD Jul 08, 2017 12:13
--- NOTE | 2017-07-08 13:42 | HHI.PR ---
Subjective Remarks Hypoglycemia present again this morning. Insulin detemir discontinued. Patient will need split insulin dosing with NPH to be able to control her sugars during the day he had not send her hypoglycemic overnight. Patient's complaint today is leg pain bilaterally. Objective Vital Signs Date Time Temp Pulse Resp B/P (MAP) Pulse Ox O2 Delivery O2 Flow Rate FiO2 07/08/17 11:58 96.4 76 19 144/70 (94) 98 07/08/17 08:00 96.1 65 20 146/67 (93) 100 07/08/17 06:14 97.6 76 20 145/68 (93) 95 07/08/17 00:00 69 07/08/17 00:00 97.2 54 20 126/60 (82) 97 07/07/17 22:12 2.50 07/07/17 20:00 97.0 68 20 131/72 (91) 97 07/07/17 16:00 96.2 53 17 146/66 (92) 98 07/07/17 15:52 97 2.00 I/O 07/07/17 07/07/17 07/07/17 07/08/17 07/08/17 07/08/17 07:00 15:00 23:00 07:00 15:00 23:00 Intake Total 480 ml 240 ml Output Total 1500 ml 0 ml Balance -1500 ml 480 ml 240 ml Intake Oral 480 ml 240 ml Output Urine Total 0 ml Hemodialysis 1500 ml # Voids 0 # Bowel Movements 0 0 Result Diagram: 07/08/17 0610 07/08/17 0610 Objective Remarks GENERAL: NAD, A&Ox3 HEAD: Normocephalic. NECK: Supple, trachea midline. No lymphadenopathy. EYES: No scleral icterus. No injection or drainage. CARDIOVASCULAR: Irregularly irregular rate with tachycardic rhythm, without murmurs, gallops, or rubs. RESPIRATORY: Breath sounds equal bilaterally. No accessory muscle use. GASTROINTESTINAL: Abdomen soft, non-tender, nondistended. MUSCULOSKELETAL: No cyanosis, or edema. SKIN: Warm and dry. NEURO: No focal neurological deficitis. A/P Problem List: (1) Atrial fibrillation with RVR ICD Code: I48.91 - Unspecified atrial fibrillation Status: Resolved (2) COPD exacerbation ICD Code: J44.1 - Chronic obstructive pulmonary disease with (acute) exacerbation Status: Acute (3) Acute renal failure ICD Code: N17.9 - Acute kidney failure, unspecified Status: Acute (4) Chronic kidney disease (CKD) ICD Code: N18.9 - Chronic kidney disease, unspecified (5) Paroxysmal atrial fibrillation ICD Code: I48.0 - Paroxysmal atrial fibrillation Status: Acute Assessment and Plan Assessment and plan 76-year-old female admitted secondary to pneumonia with acute renal failure. Presently on chronic hemodialysis. Labs reviewed. Continue to monitor potassium levels. Anemia remains, monitor further. Labs ordered for further monitoring. Hypoglycemia present this morning. Insulin detemir discontinued. NPH insulin started. 30 units every morning and 10 units every afternoon of NPH insulin, adjust as needed. Continue to monitor blood sugars. Patient will need to avoid the degree of hypoglycemia she has prior to consideration for discharge. A. fib RVR Baseline paroxysmal A. fib Now rate controlled Continue Cardizem Follow on telemetry Community-acquired pneumonia COPD exacerbation Treatment completed No further exacerbation Status post extubation 06/06/17 Continue oxygen as needed Continue Spiriva Continue Symbicort Chronic kidney disease stage IV End-stage renal disease Continue on hemodialysis Nephrology following Outpatient arrangements are in process R Permacath placed 06/22 Continue calcium acetate 1334 mg 3 times a day Gen. anxiety disorder Continue as needed Xanax Anemia Related to chronic kidney disease Continue Epogen Continue iron Diabetes mellitus type 2 Follow blood sugars Insulin sliding scale Diabetic diet DVT Prophylaxis Heparin Discharge Planning [facility] facility for OT and PT Outpatient Dialysis anticipated Problem Qualifiers (1) Acute renal failure: Qualified Codes: N17.9 - Acute kidney failure, unspecified (2) Chronic kidney disease (CKD): Qualified Codes: N18.5 - Chronic kidney disease, stage 5 Laci Ibarra MD Jul 08, 2017 13:42
[2017-07-08] MEDS ORDERED: INSULIN HUMAN NPH 1,000 UNITS/10 ML VIAL SQ SCH (19:00)
[2017-07-08] MEDS: ATORVASTATIN 40 MG TAB PO SCH (21:43)
[2017-07-09] VITALS (13 sets, daily range): BP systolic 104–154; BP diastolic 59–92; PULSE 51–81; RESP 17–20; TEMP 95.6–96.8; O2SAT 92–100
[2017-07-09] MEDS: ACETAMINOPHEN/HYDROcodone 325 MG/5 MG TAB PO PRN ×2 (00:05→08:49)
[2017-07-09] MEDS: DILTIAZEM HCL 60 MG TAB PO SCH ×5 (02:00→22:27)
[2017-07-09] MEDS: PROPRANOLOL HCL 10 MG TAB PO SCH ×3 (04:16→22:27)
[2017-07-09] MEDS: INSULIN NovoLIN REGULAR SUPPLEMENTAL SCALE SQ SCH ×4 (04:18→22:59)
[2017-07-09] MEDS: ALPRAZolam 0.25 MG TAB PO PRN (04:23)
[2017-07-09] MEDS: INSULIN HUMAN NPH 1,000 UNITS/10 ML VIAL SQ SCH (07:00)
[2017-07-09] MEDS: ISOSORBIDE MONONITRATE 30 MG TAB PO SCH (07:27)
[2017-07-09] MEDS: CEPHALEXIN MONOHYDRATE 250 MG CAP PO SCH ×2 (08:49→22:32)
[2017-07-09] MEDS: CALCIUM ACETATE 667 MG CAP PO SCH ×3 (08:50→18:00)
[2017-07-09] MEDS: FERROUS SULFATE 325 MG (65 MG ELEMENTAL IRON) TAB PO SCH (08:50)
[2017-07-09] MEDS: BUDESONIDE-FORMOTEROL 160/4.5 MCG INHALER INH SCH ×2 (08:55→22:32)
[2017-07-09] MEDS: VITAMIN B CMPLX/VITC/FOLIC AC CAP PO SCH (08:57)
[2017-07-09] MEDS: PANTOPRAZOLE SODIUM 40 MG VIAL IV PUSH SCH ×2 (08:58→22:27)
[2017-07-09] MEDS: SODIUM CHLORIDE 0.9% FLUSH 10 ML FLUSH IV FLUSH SCH ×3 (09:00→22:33)
[2017-07-09] MEDS: methylPREDNISolone SOD SUCC 40 MG/1 ML VIAL IV PUSH SCH ×2 (09:02→22:27)
[2017-07-09 09:32] LABS: AUTOMATED NEUTROPHIL # 11.3 TH/MM3 (1.8-7.7); BASOPHIL % 0.3 % (0.0-2.0); HEMATOCRIT 24.4 % (35.0-46.0); LYMPH % 1.9 % (9.0-44.0); LYMPHOCYTE # 0.2 TH/MM3 (1.0-4.8); MEAN CELL VOLUME 91.6 FL (80.0-100.0); MEAN CORPUSCULAR HEMOGLOBIN 30.3 PG (27.0-34.0); MONO % 2.1 % (0.0-8.0); NEUT % 95.7 % (16.0-70.0); PLATELET COUNT 44 TH/MM3 (150-450); RED BLOOD COUNT 2.66 MIL/MM3 (4.00-5.30); RED CELL DISTRIBUTION WIDTH 17.3 % (11.6-17.2); WHITE BLOOD COUNT 11.8 TH/MM3 (4.0-11.0)
[2017-07-09 09:34] LABS: HEMO FLAGS AUTO DIFF
[2017-07-09 10:10] LABS: ALKALINE PHOSPHATASE 278 U/L (45-117); ALT (GPT) 101 U/L (10-53); ANION GAP 10 MEQ/L (5-15); AST (GOT) 96 U/L (15-37); BICARBONATE 26.6 MEQ/L (21.0-32.0); BLOOD UREA NITROGEN 79 MG/DL (7-18); CHLORIDE 94 MEQ/L (98-107); GLOMERULAR FILTRATION RATE 12 ML/MIN (>89); SODIUM (NA) 131 MEQ/L (136-145); TOTAL BILIRUBIN ADULT 1.1 MG/DL (0.2-1.0)
[2017-07-09 10:11] LABS: PLATELET ESTIMATE SMEAR LOW (NORMAL); PLATELET MORPHOLOGY NORMAL (NORMAL); SCAN/DIFF AUTO DIFF CONFIRMED; TEARDROP RBCS 1+ (NORMAL)
--- NOTE | 2017-07-09 11:04 | HHI.NPPN ---
Subjective History of Present Illness 76-year-old female with past medical history of hypertension, diabetes mellitus, hyperlipidemia, ischemic heart disease, chronic kidney disease, chronic obstructive pulmonary disease was admitted because of generalized weakness, decreased urine output. I he was called to see the patient for elevated BUN and creatinine. The patient is known to me from before. She has been following with me in the office and last time I saw her was on May 04 and at that time her creatinine was 2.2 with given the GFR of 19-20 she had advanced stage IV chronic kidney disease most likely because of diabetic nephropathy. Additional Remarks Patient is alert, no SOB,complain of weakness , sherry. in the legs. Review of Systems General General Remarks Intubated and sedated. Objective Data Data Vital Signs Date Time Temp Pulse Resp B/P (MAP) Pulse Ox O2 Delivery O2 Flow Rate FiO2 07/09/17 08:00 96.2 73 20 132/67 (88) 100 07/09/17 04:29 95.7 75 20 109/59 (76) 99 07/09/17 04:00 96.8 81 17 128/62 (84) 96 07/09/17 03:55 63 07/09/17 00:22 67 07/09/17 00:00 95.7 70 17 104/61 (75) 96 07/08/17 20:31 96 Nasal Cannula 2.00 07/08/17 20:17 106 07/08/17 20:00 97.6 82 17 141/71 (94) 96 07/08/17 16:00 96.9 71 18 129/62 (84) 96 07/08/17 11:58 96.4 76 19 144/70 (94) 98 -: 07/09/17 0839 07/09/17 0839 Physical Exam General Appearance: No Acute Distress, Comfortable Eyes Eye Exam: Pupils Equal Throat Throat Exam: Oral Mucosa [place] & Moist Neck Neck Exam: Neck Supple Pulmonary Resp Exam: Breath Sounds Equal, Rhonchi, Decreased Bases, Diminished Breath Sounds, Poor Inspiratory Effort Cardiology CV Exam: Regular, Normal Sinus Rhythm Gastrointestinal/Abdomen GI Exam: Soft, Non-Tender, Bowel Sounds Present, Distended Extremeties Extremities Exam: Trace Edema Neurologic Neuro Exam: Alert, Awake, Oriented Psychiatric Psych Exam: Appropriate Responses Assessment/Plan Assessment Summary: MIRACLE/Acute Renal Failure, Hypertension, CKD Stage IV Problem List: (1) Chronic kidney disease (CKD) ICD Codes: N18.9 - Chronic kidney disease, unspecified (2) Oliguria ICD Codes: R34 - Anuria and oliguria (3) Diarrhea ICD Codes: R19.7 - Diarrhea, unspecified (4) Metabolic acidosis ICD Codes: E87.2 - Acidosis Status: Acute (5) Uremia ICD Codes: N19 - Unspecified kidney failure Status: Acute (6) Acute renal failure ICD Codes: N17.9 - Acute kidney failure, unspecified Status: Acute Plan Patient has advance stage 4 chronic kidney disease, approach stage 5. Started on HD. Patient has COPD with high CO2 and developing SOB off and on. Has tunneled catheter for HD Vascular called, they will do AVF as out patient. HD done yesterday. Out patient HD arrangement. On Nepro, and Keflex for cellulitis at left arm IV site. Hgb. dropped, for transfused and now stable. On Epogen with HD. HD done on Monday. she is MWF as out patient. For D/C to SNF, when arrangements done. HD in AM. Problem Qualifiers (1) Chronic kidney disease (CKD): Qualified Codes: N18.5 - Chronic kidney disease, stage 5 (2) Acute renal failure: Qualified Codes: N17.9 - Acute kidney failure, unspecified Lexy Lee MD Jul 09, 2017 11:04
--- NOTE | 2017-07-09 11:47 | HHI.PR ---
Subjective Remarks Insulins have been adjusted. Hypoglycemia is present again this morning. Etiology could be related to lingering detemir in her system. She had a significantly decreased dose of insulin last night with transition from detemir to NPH. It is possible she does not need insulin at night. Objective Vital Signs Date Time Temp Pulse Resp B/P (MAP) Pulse Ox O2 Delivery O2 Flow Rate FiO2 07/09/17 08:00 96.2 73 20 132/67 (88) 100 07/09/17 07:00 Nasal Cannula 2.00 07/09/17 04:29 95.7 75 20 109/59 (76) 99 07/09/17 04:00 96.8 81 17 128/62 (84) 96 07/09/17 03:55 63 07/09/17 00:22 67 07/09/17 00:00 95.7 70 17 104/61 (75) 96 07/08/17 20:31 96 Nasal Cannula 2.00 07/08/17 20:17 106 07/08/17 20:00 97.6 82 17 141/71 (94) 96 07/08/17 16:00 96.9 71 18 129/62 (84) 96 07/08/17 11:58 96.4 76 19 144/70 (94) 98 I/O 07/08/17 07/08/17 07/08/17 07/09/17 07/09/17 07/09/17 07:00 15:00 23:00 07:00 15:00 23:00 Intake Total 240 ml 240 ml 240 ml Balance 240 ml 240 ml 240 ml Intake Oral 240 ml 240 ml 240 ml # Voids 0 0 # Bowel Movements 0 Result Diagram: 07/09/17 0839 07/09/17 0839 Objective Remarks GENERAL: NAD, A&Ox3 HEAD: Normocephalic. NECK: Supple, trachea midline. No lymphadenopathy. EYES: No scleral icterus. No injection or drainage. CARDIOVASCULAR: Irregularly irregular rate with tachycardic rhythm, without murmurs, gallops, or rubs. RESPIRATORY: Breath sounds equal bilaterally. No accessory muscle use. GASTROINTESTINAL: Abdomen soft, non-tender, nondistended. MUSCULOSKELETAL: No cyanosis, or edema. SKIN: Warm and dry. NEURO: No focal neurological deficitis. A/P Problem List: (1) Atrial fibrillation with RVR ICD Code: I48.91 - Unspecified atrial fibrillation Status: Resolved (2) COPD exacerbation ICD Code: J44.1 - Chronic obstructive pulmonary disease with (acute) exacerbation Status: Acute (3) Acute renal failure ICD Code: N17.9 - Acute kidney failure, unspecified Status: Acute (4) Chronic kidney disease (CKD) ICD Code: N18.9 - Chronic kidney disease, unspecified (5) Paroxysmal atrial fibrillation ICD Code: I48.0 - Paroxysmal atrial fibrillation Status: Acute Assessment and Plan Assessment and plan 76-year-old female admitted secondary to pneumonia with acute renal failure. Presently on chronic hemodialysis. Labs reviewed. Potassium levels are improving. Hypoglycemia is present again this morning. Continue to monitor potassium levels. Anemia remains, monitor further. Labs ordered for further monitoring. NPH insulin adjusted. Presently these treatments are on hold until blood sugars stabilized. Nighttime insulins are placed on hold. Continue to monitor blood sugars. Patient will need to avoid the degree of hypoglycemia she has prior to consideration for discharge. A. fib RVR Baseline paroxysmal A. fib Now rate controlled Continue Cardizem Follow on telemetry Community-acquired pneumonia COPD exacerbation Treatment completed No further exacerbation Status post extubation 06/06/17 Continue oxygen as needed Continue Spiriva Continue Symbicort Chronic kidney disease stage IV End-stage renal disease Continue on hemodialysis Nephrology following Outpatient arrangements are in process R Permacath placed 06/22 Continue calcium acetate 1334 mg 3 times a day Gen. anxiety disorder Continue as needed Xanax Anemia Related to chronic kidney disease Continue Epogen Continue iron Diabetes mellitus type 2 Follow blood sugars Insulin sliding scale Diabetic diet DVT Prophylaxis Heparin [facility] Outpatient Dialysis anticipated Problem Qualifiers (1) Acute renal failure: Qualified Codes: N17.9 - Acute kidney failure, unspecified (2) Chronic kidney disease (CKD): Qualified Codes: N18.5 - Chronic kidney disease, stage 5 Laci Ibarra MD Jul 09, 2017 11:47
[2017-07-09] MEDS: ATORVASTATIN 40 MG TAB PO SCH (22:27)
[2017-07-10] VITALS (9 sets, daily range): BP systolic 120–185; BP diastolic 55–96; PULSE 53–96; RESP 18–24; TEMP 95.4–98.1; O2SAT 82–98
[2017-07-10] MEDS: DILTIAZEM HCL 60 MG TAB PO SCH ×5 (03:30→21:10)
[2017-07-10] MEDS: PROPRANOLOL HCL 10 MG TAB PO SCH ×4 (04:25→21:45)
[2017-07-10] MEDS: INSULIN NovoLIN REGULAR SUPPLEMENTAL SCALE SQ SCH ×3 (04:26→18:28)
[2017-07-10] MEDS: INSULIN HUMAN NPH 1,000 UNITS/10 ML VIAL SQ SCH (07:00)
[2017-07-10] MEDS: ISOSORBIDE MONONITRATE 30 MG TAB PO SCH (07:45)
[2017-07-10] MEDS: CEPHALEXIN MONOHYDRATE 250 MG CAP PO SCH ×2 (09:00→21:00)
[2017-07-10] MEDS: PANTOPRAZOLE SODIUM 40 MG VIAL IV PUSH SCH ×2 (09:00→21:10)
[2017-07-10] MEDS: FERROUS SULFATE 325 MG (65 MG ELEMENTAL IRON) TAB PO SCH (09:00)
[2017-07-10] MEDS: SODIUM CHLORIDE 0.9% FLUSH 10 ML FLUSH IV FLUSH SCH ×3 (09:00→21:10)
[2017-07-10] MEDS: BUDESONIDE-FORMOTEROL 160/4.5 MCG INHALER INH SCH ×2 (09:00→21:43)
[2017-07-10] MEDS: VITAMIN B CMPLX/VITC/FOLIC AC CAP PO SCH (09:00)
[2017-07-10] MEDS: CALCIUM ACETATE 667 MG CAP PO SCH ×3 (09:00→18:00)
[2017-07-10] MEDS: ALBUMIN 25% INJ 100 ML IV PRN ×2 (09:57→10:25)
[2017-07-10] MEDS: methylPREDNISolone SOD SUCC 40 MG/1 ML VIAL IV PUSH SCH ×2 (10:00→21:10)
--- NOTE | 2017-07-10 10:06 | HHI.NPPN ---
Subjective History of Present Illness 76-year-old female with past medical history of hypertension, diabetes mellitus, hyperlipidemia, ischemic heart disease, chronic kidney disease, chronic obstructive pulmonary disease was admitted because of generalized weakness, decreased urine output. I he was called to see the patient for elevated BUN and creatinine. The patient is known to me from before. She has been following with me in the office and last time I saw her was on May 04 and at that time her creatinine was 2.2 with given the GFR of 19-20 she had advanced stage IV chronic kidney disease most likely because of diabetic nephropathy. Additional Remarks Patient is alert, now on HD, has generalized weakness. Review of Systems General General Remarks Intubated and sedated. Objective Data Data Vital Signs Date Time Temp Pulse Resp B/P (MAP) Pulse Ox O2 Delivery O2 Flow Rate FiO2 07/10/17 08:00 96.6 66 19 148/69 (95) 97 07/10/17 00:00 97.6 75 20 138/74 (95) 98 07/09/17 23:27 69 07/09/17 22:26 96 Nasal Cannula 2.00 07/09/17 22:00 96.2 74 20 151/76 (101) 98 07/09/17 20:00 95.6 69 20 127/67 (87) 96 07/09/17 19:38 65 07/09/17 19:32 97 Nasal Cannula 2.00 07/09/17 16:00 96.0 51 20 120/81 (94) 98 07/09/17 12:00 96.6 71 19 154/92 (112) 92 -: 07/09/17 0839 07/09/17 0839 Physical Exam General Appearance: No Acute Distress, Comfortable Eyes Eye Exam: Pupils Equal Throat Throat Exam: Oral Mucosa [place] & Moist Neck Neck Exam: Neck Supple Pulmonary Resp Exam: Breath Sounds Equal, Rhonchi, Decreased Bases, Diminished Breath Sounds, Poor Inspiratory Effort Cardiology CV Exam: Regular, Normal Sinus Rhythm Gastrointestinal/Abdomen GI Exam: Soft, Non-Tender, Bowel Sounds Present, Distended Extremeties Extremities Exam: Trace Edema Neurologic Neuro Exam: Alert, Awake, Oriented Psychiatric Psych Exam: Appropriate Responses Assessment/Plan Assessment Summary: [place]/Acute Renal Failure, Hypertension, CKD Stage IV Problem List: (1) Chronic kidney disease (CKD) ICD Codes: N18.9 - Chronic kidney disease, unspecified (2) Oliguria ICD Codes: R34 - Anuria and oliguria (3) Diarrhea ICD Codes: R19.7 - Diarrhea, unspecified (4) Metabolic acidosis ICD Codes: E87.2 - Acidosis Status: Acute (5) Uremia ICD Codes: N19 - Unspecified kidney failure Status: Acute (6) Acute renal failure ICD Codes: N17.9 - Acute kidney failure, unspecified Status: Acute Plan Patient has advance stage 4 chronic kidney disease, approach stage 5. Started on HD. Patient has COPD with high CO2 and developing SOB off and on. Has tunneled catheter for HD Vascular called, they will do AVF as out patient. Out patient HD arrangement. On Nepro, and Keflex for cellulitis at left arm IV site. Hgb. dropped, for transfused and now stable. On Epogen with HD. She is MWF as out patient. HD now, remove fluid as tolerated. BP is on lower side. Problem Qualifiers (1) Chronic kidney disease (CKD): Qualified Codes: N18.5 - Chronic kidney disease, stage 5 (2) Acute renal failure: Qualified Codes: N17.9 - Acute kidney failure, unspecified Lexy Lee MD Jul 10, 2017 10:06
--- NOTE | 2017-07-10 11:35 | PD.ONC.PN ---
Subjective Subjective Remarks Afebrile overnight. Patient seen in dialysis. She is eager to go home. She is tired of being in the hospital. Denies bleeding. Objective Data Date Time Temp Pulse Resp B/P (MAP) Pulse Ox O2 Delivery O2 Flow Rate FiO2 07/10/17 08:00 96.6 66 19 148/69 (95) 97 07/10/17 00:00 97.6 75 20 138/74 (95) 98 07/09/17 23:27 69 07/09/17 22:26 96 Nasal Cannula 2.00 07/09/17 22:00 96.2 74 20 151/76 (101) 98 07/09/17 20:00 95.6 69 20 127/67 (87) 96 07/09/17 19:38 65 07/09/17 19:32 97 Nasal Cannula 2.00 07/09/17 16:00 96.0 51 20 120/81 (94) 98 07/09/17 12:00 96.6 71 19 154/92 (112) 92 07/10/17 07/10/17 07/10/17 07:00 15:00 23:00 Intake Total 100 ml Balance 100 ml Result Diagram: 07/09/17 0839 07/09/17 0839 Administered Medications Medications (Trade) Dose Ordered Sig/[place] Route PRN Reason Start Time Stop Time Status Last Admin Dose Admin Sodium Chloride (NS Flush) 2 ml UNSCH PRN IV FLUSH FLUSH AFTER USING IV ACCESS 05/30/17 21:45 06/23/17 05:39 Sodium Chloride (NS Flush) 2 ml BID IV FLUSH 05/31/17 09:00 07/09/17 22:33 Atorvastatin Calcium (Lipitor) 80 mg HS PO 05/31/17 21:00 Future hold 07/09/17 22:27 Ondansetron HCl (Zofran Inj) 4 mg Q6HR PRN IV PUSH NAUSEA OR VOMITING 05/31/17 13:00 07/07/17 09:13 Sodium Chloride 1,000 ml @ 0 mls/hr Q0M PRN OTHER For [employer] & Rinse Back 06/01/17 09:07 07/07/17 11:30 Heparin Sodium (Porcine) (Heparin Inj) 8,000 units UNSCH PRN IV FLUSH WITH DIALYSIS 06/01/17 09:15 07/06/17 11:27 Sodium Chloride 1,000 ml @ 200 mls/hr Q5H PRN IV WITH DIALYSIS 06/01/17 09:07 06/16/17 14:53 Mannitol (Mannitol Inj) 12.5 gm UNSCH PRN IV WITH DIALYSIS 06/01/17 09:15 06/02/17 08:06 Albumin Human 100 ml @ 60 mls/hr UNSCH PRN IV WITH DIALYSIS 06/01/17 09:15 07/10/17 10:25 Sodium Chloride (NS Flush) 5 ml UNSCH PRN IV FLUSH WITH DIALYSIS 06/01/17 09:15 06/24/17 09:31 Heparin Sodium (Porcine) (Heparin Inj) UNSCH PRN .XX WITH DIALYSIS 06/01/17 09:15 07/07/17 11:30 Gentamicin Sulfate (Gentamicin (Dialysis) Inj) 20 mg UNSCH PRN OTHER WITH DIALYSIS 06/01/17 09:15 07/07/17 11:30 Diphenhydramine HCl (Benadryl) 25 mg UNSCH PRN PO for hives/itching/anaphylaxis 06/01/17 09:15 07/05/17 10:55 Clonidine (Catapres) 0.1 mg UNSCH PRN PO for BP > 180/100 X 2 readings 06/01/17 09:15 06/22/17 02:28 Sennosides (Senokot) 17.2 mg Q12H PRN PO Moderate constipation 06/01/17 18:30 07/04/17 13:56 Alprazolam (Xanax) 0.5 mg Q8H PRN PO MILD ANXIETY 06/06/17 13:00 07/09/17 04:23 Epoetin [place] (Epogen Inj) 10,000 units UNSCH PRN IV PUSH WITH DIALYSIS 06/07/17 21:30 07/06/17 11:27 Vitamin B Complex/ Vit C/Folic Acid (Nephrocaps) 1 cap DAILY PO 06/08/17 09:00 07/09/17 08:57 Calcium Acetate (Phoslo) 1,334 mg TID PO 06/08/17 09:00 07/09/17 18:00 Ferrous Sulfate (Ferrous Sulfate) 325 mg DAILY PO 06/09/17 09:00 07/09/17 08:50 Loperamide HCl (Imodium Liq) 2 mg Q4H PRN PO DIARRHEA 06/10/17 13:00 06/21/17 20:35 Sodium Chloride (NS Flush) DAILY IV FLUSH 06/12/17 09:00 07/07/17 15:28 Budesonide/ Formoterol Fumarate (Symbicort 160-4.5 Inh) 2 puff Q12HR INH 06/17/17 09:00 07/09/17 22:32 Acetaminophen/ Hydrocodone Bitart ([place] 5-325 Mg) 1 tab Q6H PRN PO pain 1-5 06/17/17 06:30 07/06/17 15:08 Dextrose (D50w (Vial) Inj) 50 ml UNSCH PRN IV PUSH HYPOGLYCEMIA-SEE COMMENTS 06/20/17 17:00 07/08/17 06:26 Albuterol Sulfate (Albuterol Neb) 2.5 mg Q2HR NEB PRN NEB dyspnea 06/22/17 06:45 06/27/17 19:52 Hydralazine HCl (Apresoline) 100 mg Q8HR PO 06/22/17 14:00 Future Hold 06/24/17 05:29 Isosorbide Mononitrate (Imdur) 30 mg DAILY@07 PO 06/22/17 07:00 07/10/17 07:45 Miscellaneous (Pill Splitter) 1 ea UNSCH PRN OTHER SEE LABEL COMMENTS 06/22/17 18:00 06/23/17 14:16 Methylprednisolone Sodium Succinate (SoluMEDROL INJ) 40 mg Q12H IV PUSH 06/28/17 10:00 07/09/17 22:27 Acetaminophen/ Hydrocodone Bitart ([place] 5-325 Mg) 2 tab Q6H PRN PO PAIN 6-10 06/28/17 08:15 07/09/17 08:49 Insulin Human Regular (NovoLIN R SUPPLEMENTAL SCALE) 1 Q6HR SQ 06/28/17 12:00 07/09/17 22:59 Pantoprazole Sodium (Protonix Inj) 40 mg Q12HR IV PUSH 06/28/17 13:00 07/09/17 22:27 Propranolol HCl (Inderal) 10 mg Q8HR PO 06/28/17 14:00 07/10/17 04:25 Diltiazem HCl (Cardizem) 60 mg Q6H PO 06/29/17 08:00 07/10/17 03:30 Cephalexin Monohydrate (Keflex) 250 mg BID PO 07/04/17 21:00 07/09/17 22:32 Insulin Human NPH (NovoLIN N INJ) 10 units DAILY@1900 SQ 07/08/17 19:00 Future Hold 07/08/17 18:54 Objective Remarks GENERAL: Chronically ill female lying supine in bed in dialysis. SKIN: Warm and dry. vas-cath right neck, no oozing. HEAD: Normocephalic. EYES: No injection or drainage. NECK: Supple, trachea midline. CARDIOVASCULAR: Regular rate and rhythm RESPIRATORY: anterior shaffer clear. GASTROINTESTINAL: Abdomen soft, non-tender, nondistended. EXTREMITIES: No cyanosis. moderate edema, bilateral lower extremities. NEUROLOGICAL: No obvious focal deficit. Awake, alert, and oriented x3. Assessment/Plan Problem List: (1) DVT of upper extremity (deep vein thrombosis) ICD Codes: I82.629 - Acute embolism and thrombosis of deep veins of unspecified upper extremity Status: Acute Plan: Anticoagulation on hold due to acute GI bleed, melena/BRBPR, anemia and thrombocytopenia. LUE previous internal jugular vein thrombus, L cephalic vein persists on repeat ultrasound. (2) Acute blood loss anemia ICD Codes: D62 - Acute posthemorrhagic anemia Status: Acute Plan: Supportive transfusion. GIB likely cause of anemia/thrombocytopenia. Work up negative: HIT neg, PAT neg, retic high c/w blood loss anemia. EGD/colonoscopy 06/19-->gastritis in the antrum. +large hiatal hernia. Colonoscopy showed ulcer in the cecum. These were treated with clips. There is no active bleeding. She does not have esophageal varices. EGD/colonoscopy 06/23--> erythematous gastritis in the gastric antrum; Severe diverticulosis in the sigmoid colon. 3 x 5cm colitis was found in the transverse colon; The mucosa was erythematous, friable, ulcerated and oozing blood; Injected with 5 cc of epinephrine, and ablated with APC. Good hemostasis obtained Bleeding scan (06/28/17)---> No definite evidence of active colonic GI bleeding is noted. 2 very tiny areas are identified the right midabdomen but they do not correspond with bowel activity. Assessment 76y/o female admitted with generalized weakness. Hematology consulted for anemia /thrombocytopenia. history of hypertension, diabetes, hyperlipidemia, ischemic heart disease, chronic kidney disease on hemodialysis. COPD Plan 1. monitor CBC. 2. no transfusion needed today 3. continue to hold anticoagulation until platelets remain greater than 100K. Attending Statement Discussed above, continue current management. Problem Qualifiers (1) DVT of upper extremity (deep vein thrombosis): Qualified Codes: I82.622 - Acute embolism and thrombosis of deep veins of left upper extremity Leticia Telles Jul 10, 2017 11:35 Socorro Foster MD Jul 11, 2017 18:14
[2017-07-10] MEDS: GENTAMICIN SULFATE (DIALYSIS USE ONLY) 20 MG/2 ML VIAL OTHER PRN (11:43)
[2017-07-10] MEDS: EPOETIN ALFA 10,000 UNITS/ML VIAL IV PUSH PRN (11:43)
[2017-07-10] MEDS: HEPARIN SODIUM - IV 10,000 UNITS/10 ML VIAL PRN (11:44)
[2017-07-10] MEDS ORDERED: MEDR4PAK PO (13:41)
[2017-07-10] MEDS ORDERED: NEPHRO PO (13:41)
[2017-07-10] MEDS ORDERED: PROP10TA6 PO (13:41)
[2017-07-10] MEDS ORDERED: DILT60TA33 PO (13:41)
[2017-07-10] MEDS ORDERED: CALC667C PO (13:41)
[2017-07-10] MEDS ORDERED: FERR325T20 PO (13:41)
[2017-07-10] MEDS ORDERED: Budeson-Formot 160-4.5 Mg Inh INH (13:41)
[2017-07-10] MEDS ORDERED: NITR0.4S SL (13:41)
[2017-07-10] MEDS ORDERED: PANT40P PO (13:41)
[2017-07-10] MEDS ORDERED: ISOS30TA3 PO (13:41)
[2017-07-10] MEDS ORDERED: Albuterol Neb NEB (13:41)
[2017-07-10] MEDS ORDERED: HYDR-3516 PO (13:41)
[2017-07-10] MEDS ORDERED: CEPH250C PO (13:41)
[2017-07-10] MEDS ORDERED: TERBUTALINE SQ (13:41)
--- NOTE | 2017-07-10 15:19 | HHI.PR ---
Subjective Remarks Blood sugars better controlled. Currently patient is not on insulin. Gradual decline in hemoglobin. Possible need for transfusion today. Labs pending. Objective Vital Signs Date Time Temp Pulse Resp B/P (MAP) Pulse Ox O2 Delivery O2 Flow Rate FiO2 07/10/17 08:00 96.6 66 19 148/69 (95) 97 07/10/17 00:00 97.6 75 20 138/74 (95) 98 07/09/17 23:27 69 07/09/17 22:26 96 Nasal Cannula 2.00 07/09/17 22:00 96.2 74 20 151/76 (101) 98 07/09/17 20:00 95.6 69 20 127/67 (87) 96 07/09/17 19:38 65 07/09/17 19:32 97 Nasal Cannula 2.00 07/09/17 16:00 96.0 51 20 120/81 (94) 98 I/O 07/09/17 07/09/17 07/09/17 07/10/17 07/10/17 07/10/17 07:00 15:00 23:00 07:00 15:00 23:00 Intake Total 240 ml 480 ml 100 ml Output Total 2000 ml Balance 240 ml 480 ml -1900 ml Intake Oral 240 ml 480 ml IV Total 0 ml 100 ml Hemodialysis 2000 ml # Voids 0 0 0 # Bowel Movements 0 Result Diagram: 07/09/1739 07/09/17 0839 Objective Remarks GENERAL: NAD, A&Ox3 HEAD: Normocephalic. NECK: Supple, trachea midline. No lymphadenopathy. EYES: No scleral icterus. No injection or drainage. CARDIOVASCULAR: Irregularly irregular rate with tachycardic rhythm, without murmurs, gallops, or rubs. RESPIRATORY: Breath sounds equal bilaterally. No accessory muscle use. GASTROINTESTINAL: Abdomen soft, non-tender, nondistended. MUSCULOSKELETAL: No cyanosis, or edema. SKIN: Warm and dry. NEURO: No focal neurological deficitis. A/P Problem List: (1) Atrial fibrillation with RVR ICD Code: I48.91 - Unspecified atrial fibrillation Status: Resolved (2) COPD exacerbation ICD Code: J44.1 - Chronic obstructive pulmonary disease with (acute) exacerbation Status: Acute (3) Acute renal failure ICD Code: N17.9 - Acute kidney failure, unspecified Status: Acute (4) Chronic kidney disease (CKD) ICD Code: N18.9 - Chronic kidney disease, unspecified (5) Paroxysmal atrial fibrillation ICD Code: I48.0 - Paroxysmal atrial fibrillation Status: Acute Assessment and Plan Assessment and plan 76-year-old female admitted secondary to pneumonia with acute renal failure. Presently on chronic hemodialysis. Labs reviewed. Potassium improved. Hypoglycemia resolved. Continue to monitor potassium levels. Anemia remains, monitor further. Monitor blood work for stability. May discharge once blood sugars, potassium, and anemia have stabilized. Plan for transfusion if further decline in Hgb is present. A. fib RVR Baseline paroxysmal A. fib Now rate controlled Continue Cardizem Follow on telemetry Community-acquired pneumonia COPD exacerbation Treatment completed No further exacerbation Status post extubation 06/06/17 Continue oxygen as needed Continue Spiriva Continue Symbicort Chronic kidney disease stage IV End-stage renal disease Continue on hemodialysis Nephrology following Outpatient arrangements are in process R Permacath placed 06/22 Continue calcium acetate 1334 mg 3 times a day Gen. anxiety disorder Continue as needed Xanax Anemia Related to chronic kidney disease Continue Epogen Continue iron Diabetes mellitus type 2 Follow blood sugars Insulin sliding scale Diabetic diet DVT Prophylaxis Heparin Discharge Planning [facility] facility for OT and PT Outpatient Dialysis anticipated Problem Qualifiers (1) Acute renal failure: Qualified Codes: N17.9 - Acute kidney failure, unspecified (2) Chronic kidney disease (CKD): Qualified Codes: N18.5 - Chronic kidney disease, stage 5 Laci Ibarra MD Jul 10, 2017 15:19
--- NOTE | 2017-07-10 16:22 | HHI.PR ---
Subjective Remarks 76 YOWF with VDRF,Ac renal Failure,DM, Met acidosis No Fever Alert awake feels weak, mild sob Breathing better H/H decreased Had HD Objective Vital Signs Vital Signs Date Time Temp Pulse Resp B/P (MAP) Pulse Ox O2 Delivery O2 Flow Rate FiO2 07/10/17 08:00 96.6 66 19 148/69 (95) 97 07/10/17 00:00 97.6 75 20 138/74 (95) 98 07/09/17 23:27 69 07/09/17 22:26 96 Nasal Cannula 2.00 07/09/17 22:00 96.2 74 20 151/76 (101) 98 07/09/17 20:00 95.6 69 20 127/67 (87) 96 07/09/17 19:38 65 07/09/17 19:32 97 Nasal Cannula 2.00 I/O 07/09/17 07/09/17 07/09/17 07/10/17 07/10/17 07/10/17 07:00 15:00 23:00 07:00 15:00 23:00 Intake Total 240 ml 480 ml 100 ml Output Total 2000 ml Balance 240 ml 480 ml -1900 ml Intake Oral 240 ml 480 ml IV Total 0 ml 100 ml Hemodialysis 2000 ml # Voids 0 0 0 # Bowel Movements 0 Result Diagram: 07/09/1783807/09/17838 Objective Remarks GENERAL: WBWN WF, On NC SKIN: Warm and dry. HEAD: Normocephalic. EYES: No scleral icterus. No injection or drainage. NECK: Supple, trachea midline. No JVD or lymphadenopathy. CARDIOVASCULAR: Regular rate and rhythm without murmurs, gallops, or rubs. RESPIRATORY: Breath sounds equal bilaterally. No accessory muscle use. GASTROINTESTINAL: Abdomen soft, non-tender, nondistended. MUSCULOSKELETAL: No cyanosis, or edema. BACK: Nontender without obvious deformity. No CVA tenderness. A/P Assessment and Plan VDRF, s/p Extubation COPD Ac renal Failure DM Nicotine use AF with RVR, converted to NSR PLAN: Supplement 02, keep sat 88-92% Monitor BS Caitlin qid. Monitor H/H Jac Hammonds MD Jul 10, 2017 16:22
[2017-07-10 16:48] LABS: AUTOMATED NEUTROPHIL # 9.8 TH/MM3 (1.8-7.7); BASOPHIL % 0.1 % (0.0-2.0); HEMATOCRIT 23.5 % (35.0-46.0); LYMPH % 1.6 % (9.0-44.0); LYMPHOCYTE # 0.2 TH/MM3 (1.0-4.8); MEAN CELL VOLUME 93.7 FL (80.0-100.0); MEAN CORPUSCULAR HEMOGLOBIN 31.4 PG (27.0-34.0); MEAN CORPUSCULAR HGB CONC 33.5 % (32.0-36.0); MONO % 3.1 % (0.0-8.0); NEUT % 95.2 % (16.0-70.0); PLATELET COUNT 39 TH/MM3 (150-450); RED CELL DISTRIBUTION WIDTH 17.6 % (11.6-17.2); WHITE BLOOD COUNT 10.2 TH/MM3 (4.0-11.0)
[2017-07-10 17:06] LABS: ALKALINE PHOSPHATASE 271 U/L (45-117); ALT (GPT) 99 U/L (10-53); ANION GAP 9 MEQ/L (5-15); AST (GOT) 86 U/L (15-37); BICARBONATE 29.6 MEQ/L (21.0-32.0); BLOOD UREA NITROGEN 43 MG/DL (7-18); CHLORIDE 95 MEQ/L (98-107); GLOMERULAR FILTRATION RATE 19 ML/MIN (>89); POTASSIUM 3.9 MEQ/L (3.5-5.1); SODIUM (NA) 134 MEQ/L (136-145); TOTAL BILIRUBIN ADULT 1.9 MG/DL (0.2-1.0)
[2017-07-10 17:24] LABS: HEMO FLAGS AUTO DIFF
[2017-07-10] MEDS: RESP: ALBUTEROL 2.5 MG/3 ML NEB (PRN) NEB (17:30)
[2017-07-10] MEDS: LORazepam 0.5 MG TAB PO PRN (17:39)
[2017-07-10] MEDS ORDERED: SODIUM CHLOR 0.9% 250 ML INJ 250 ML IV ONE (17:45)
[2017-07-10 18:38] LABS: BLOOD GAS BASE EXCESS 3.4 mmol/L (-2-2); BLOOD GAS HCO3 29 mmol/L (22-26); BLOOD GAS METHEMOGLOBIN 1.2 % (0-2); BLOOD GAS O2 HGB SATURATION 97 % (90-100); BLOOD GAS OXYGEN CONTENT 11.7 Vol % (12.0-20.0); BLOOD GAS PCO2 55 mmHg (38-42); BLOOD GAS PO2 203 mmHg (61-120); BLOOD GAS TOTAL HGB 8.2 G/DL (12.0-16.0); TEMP CORR TO 98.6
[2017-07-10 18:41] LABS: CRITICAL VALUE YES; DRAW SITE RT RADIAL; FIO2 100 %; LITER FLOW 15 L/M; NUMBER OF ARTERIAL PUNCTURES 1; OXYGEN DEVICE NON REBREATHER; STAT YES; ULNAR PULSE PRESENT
[2017-07-10] MEDS ORDERED: HEPARIN-D5W 25,000 U/250 ML 250 ML IV PRN (19:00)
[2017-07-10] MEDS ORDERED: HEPARIN SODIUM - IV 10,000 UNITS/10 ML VIAL IV PUSH ONE (19:00)
--- NOTE | 2017-07-10 19:07 | RADRPT ---
EXAM DATE/TIME: 07/10/2017 18:33 [facility] COMPARISON: CHEST SINGLE AP, June 28, 2017, 14:56. INDICATIONS : Shortness of breath. MEDICAL HISTORY : Chronic obstructive pulmonary disease. Hypertension Diabetes mellitus type II. Stage 4 kidney disease . Congestive heart failure. SURGICAL HISTORY : Umbilical hernia repair. Cholecystectomy. Appendectomy. hysterectomy ENCOUNTER: Subsequent ACUITY: 1 month PAIN SCORE: Non-responsive. LOCATION: Bilateral chest FINDINGS: Mild pulmonary vascular congestion is noted. Small bilateral pleural effusions are noted. The heart i s enlarged. Right internal jugular dialysis catheter has its tips in the right atrium. CONCLUSION: 1. Mild pulmonary vascular congestion. 2. Small bilateral pleural effusions. 3. Cardiomegaly. Ritchie Dumont MD on July 10, 2017 at 19:04 Board Certified Radiologist. This report was verified electronically.
[2017-07-10 19:36] LABS: PLATELET MORPHOLOGY NORMAL (NORMAL); SCAN/DIFF AUTO DIFF CONFIRMED
[2017-07-10 19:37] LABS: PLATELET ESTIMATE SMEAR LOW (NORMAL)
[2017-07-10 19:38] LABS: TEARDROP RBCS 1+ (NORMAL)
[2017-07-10] MEDS ORDERED: IOHEXOL 350 MG/ML 10 ML VIAL (for RAD DIAG) IVCONTRAST ONE (19:46)
--- NOTE | 2017-07-10 20:02 | RADRPT ---
EXAM DATE/TIME: 07/10/2017 19:34 [facility] COMPARISON: No previous studies available for comparison. INDICATIONS : Shortness of breath. IV CONTRAST: 75 cc Omnipaque 350 (iohexol) IV RADIATION DOSE: 23.13 CTDIvol (mGy) MEDICAL HISTORY : Cardiovascular disease. Chronic obstructive pulmonary disease. SURGICAL HISTORY : Appendectomy. Hysterectomy. ENCOUNTER: Initial ACUITY: 1 day PAIN SCALE: 4/10 LOCATION: Bilateral chest TECH NOTE: patient will have dylasis tomorrow per Dr Gibson. ok'd by Dr Gibson and Dr. Dumont. TECHNIQUE: Volumetric scanning of the chest was performed using a pulmonary embolism protocol MIP images were re constructed. Using automated exposure control and adjustment of the mA and/or kV according to patien t size, radiation dose was kept as low as reasonably achievable to obtain optimal diagnostic quality images. DICOM format image data is available electronically for review and comparison. Follow-up recommendations for detected pulmonary nodules are based at a minimum on nodule size and pa tient risk factors according to Fleischner Society Guidelines. FINDINGS: There is no evidence of pulmonary embolism. The heart is enlarged. Small right pleural effusion and t iny left pleural effusion are noted. Alveolar consolidation involving the right lower lobe and to a l avtar extent the posterior aspects of the upper lobes and posterior aspect of the left lower lobe con sistent with pneumonia and/or atelectasis. Underlying moderate emphysematous changes are noted bilate rally. No pulmonary nodule or mass is noted. No mediastinal, hilar or axillary lymphadenopathy is not ed. Degenerative changes and scoliosis of the thoracic spine are noted. CONCLUSION: 1. Alveolar consolidation involving the right lower lobe and to a lesser extent the posterior aspects of the upper lobes and posterior aspect of the left lower lobe consistent with pneumonia and/or atel ectasis. 2. No evidence of pulmonary embolism. 3. Small right pleural effusion and tiny left pleural effusion. 4. Cardiomegaly. 5. Moderate emphysematous changes bilaterally. 6. Degenerative changes and scoliosis of the thoracic spine. Ritchie Dumont MD on July 10, 2017 at 19:56 Board Certified Radiologist. This report was verified electronically.
[2017-07-10] MEDS ORDERED: VANCOMYCIN INJ 1,000 MG in SODIUM CHLOR 0.9% 250 ML INJ 250 ML IV SCH (20:30)
[2017-07-10] MEDS ORDERED: Vancomycin Consult Pharmacy 1 EA OTHER SCH (20:30)
[2017-07-10 20:41] LABS: HEMATOCRIT 24.1 % (35.0-46.0); MEAN CELL VOLUME 91.8 FL (80.0-100.0); MEAN CORPUSCULAR HEMOGLOBIN 30.1 PG (27.0-34.0); MEAN CORPUSCULAR HGB CONC 32.8 % (32.0-36.0); PLATELET COUNT 57 TH/MM3 (150-450); RED BLOOD COUNT 2.62 MIL/MM3 (4.00-5.30); RED CELL DISTRIBUTION WIDTH 17.6 % (11.6-17.2); WHITE BLOOD COUNT 21.5 TH/MM3 (4.0-11.0)
[2017-07-10 20:46] LABS: REVIEW FLAG FINAL
[2017-07-10 20:56] LABS: APTT (PATIENT) 24.9 SEC (24.3-30.1); INTERNATIONAL NORMALIZED RATIO 1.1 RATIO; PROTHROMBIN TIME - PATIENT 10.9 SEC (9.8-11.6)
[2017-07-10] MEDS: ATORVASTATIN 40 MG TAB PO SCH ×2 (21:00→21:10)
[2017-07-10] MEDS: AZITHROMYCIN INJ 500 MG in SODIUM CHLOR 0.9% 250 ML INJ 250 ML IV SCH (21:10)
[2017-07-10] MEDS: PIPERACIL-TAZO 4.5 GM PREMIX 100 ML IV SCH (21:11)
[2017-07-10] MEDS ORDERED: VANCOMYCIN INJ 2,000 MG in SODIUM CHLORID 0.9% 500 ML INJ 500 ML IV ONE (21:30)
--- NOTE | 2017-07-10 23:19 | HHI.CCPN ---
Subjective Remarks/Hospital Course The patient is a 76-year-old female with past medical history of hypertension, hyperlipidemia, diabetes mellitus, COPD, chronic kidney disease, who was admitted to [facility] yesterday under hospitalist service for acute renal failure and COPD exacerbation. On arrival the patient had BUN of 99 with a creatinine of 14 and potassium level 4.8. Chest x-ray on admission showed no evidence of any acute cardiopulmonary disease. She was seen by Dr. Lee from nephrology service and placed on bicarb drip. A renal ultrasound was obtained which showed no evidence of hydronephrosis. Her renal function continued to worsen. A Halicat was called this morning for respiratory distress. She was subsequently transferred to ICU and was intubated by Dr. Davila, the ED physician. ABG post-intubation showed severe hypercapnic and metabolic acidosis with a pH of 6.89, CO2 63, bicarb 12, pAO2 211, saturation 96 % on PRVC mode rate of 14, tidal volume 500. I time one, PEEP five and FIO2 60% . Chest x-ray post-intubation showed ET tube above the brayan and bilateral interstitial pattern. Her laboratory data this morning is significant for hyperkalemia with potassium level 6.1, BUN of 118, creatinine 14.0. When seen the patient is intubated and sedated with Diprivan drip. Her current blood pressure is 179/90 with a pulse of 117. 06/02 Patient s/p HD 06/01 with 2L fluid removal, 2 L removed today as well. . Patient remains intubated on low dose Diprivan but awake, alert and follows commands. Afebrile. She went into Afib with RVR overnight and started on Amio drip. 06/03 Converted to sinus with PAC's on amiodarone. Remains on mechanical ventilation. UOP 50 ml over last 24 hours. Following commands on sedation, will do SBT. Plan for HD today per discussion with SECURITIES ANALYST. 06/04 CPAP trial terminated yesterday after patient became tachycardic, anxious. HD was not performed yesterday but plan for today per nephrology. Will use Precedex to facilitate comfort with CPAP. UOP 150. 06/05: Patient had hemodialysis today with 3 L fluid removed. Tolerating CPAP well, awake alert following commands communicating by writing. Chest x-ray remains unchanged 06/06: Overnight placed on Precedex for agitation. Also required BIPAP for hypercapnea. Weaned off Precedex by afternoon today. Currently on Xanax when necessary. At this time on BiPAP. Patient is pleasant and communicative breathing comfortably. Bilateral wheezes on exam. I have started patient on IV Solu-Medrol, Symbicort and Spiriva Reconsult 06/12: Reconsulted secondary to acute hypoxemic respiratory failure. Currently on BiPAP with significant acidosis therefore intubated. Central line placed in the left IJ. 06/13: Afebrile. Currently off phenylephrine drip. Remains intubated. Currently in sinus bradycardia. White blood cell count decreased to 16,000. Will attempt PSV trial today. 06/14: Resting comfortably in bed. Tolerated PSV trial still 8 PM last night. During tube feeds. Positive BM. Following simple commands on minimal sedation. 06/15: Return to normal sinus rhythm. Diltiazem Initiated. Will Attempt PSV Trial Again Today. Positive BMs. We'll Check C. difficile. 06/16: No acute issues overnight. Hemoglobin 7. Will transfuse 1 unit during hemodialysis. Attempt spontaneous breathing trials postdialysis with attempt extubated. 06/17: Extubated yesterday without complication of hemodialysis. -3 L. Positive BM 3. Current 4 L nasal cannula. Less lethargic as AM. 06/18: Afebrile. Tolerating diet yesterday overnight. Currently in sinus bradycardia. Positive BM. On nasal cannula and feels better than yesterday Reconsult 06/20 Reconsult for resp distress. Patient was found with labored breathing she was subsequently place on BIPAP 05/11 with 40% FIO2. Afebrile. Awake and alert , CXR showed bibasilar opacities, stable chest. 06/21 No events overnight. Off BIPAP. Awake and alert on 2L oxygen with good sats. Afebrile. Subjective 06/22: Patient currently afebrile on room air. Continues to have rhonchorous breath sounds with end expiratory wheezing. Continues to have black tarry stools. Hemoglobin stable however. Known cecal ulcer status post clipping by Dr. Moseley with transverse/ascending colon ulcers. Very pleasant. Patient is a DNR DO NOT INTUBATE. Plan for permacath today. 06/28 Patient was transferred to [facility] last night for GI bleeding. She is currently receiving HD. s/p transfusion 2units PRBC and 2U FFP. 06/29 No events overnight. s/p HD yesterday with removal 2L. Bleeding scan yesterday showed no evidence of active bleeding. Hgb 7.3 this morning. 06/30 No events overnight. For EGD/colonoscopy today. Afebrile. s/p transfusion 1unit PRBC yesterday 07/01 No events overnight. s/p EGD yesterday showed Gastritis and Esophagitis. For HD today. H/H stable. Reconsult 07/10 reconsulted for respiratory distress requiring intubation and mechanical ventilation Objective Vital Signs Date Time Temp Pulse Resp B/P (MAP) Pulse Ox O2 Delivery O2 Flow Rate FiO2 07/10/17 22:03 96 Non-Rebreather 12.00 07/10/17 18:30 96 20 165/96 (119) 07/10/17 16:00 97.9 Intake and Output 07/10/17 07/10/17 07/11/17 08:00 16:00 00:00 Intake Total 100 ml 480 ml Output Total 2000 ml Balance -1900 ml 480 ml Result Diagram: 07/10/17201407/10/17 1606 Other Results Laboratory Tests Test 07/10/17 18:27 Blood Gas Puncture Site RT RADIAL Blood Gas Patient Temperature 98.6 Blood Gas HCO3 29 mmol/L (22-26) Blood Gas Base Excess 3.4 mmol/L (-2-2) Blood Gas Oxygen Saturation 97 % (90-100) Arterial Blood pH 7.34 (7.380-7.420) Arterial Blood Partial Pressure CO2 55 mmHg (38-42) Arterial Blood Partial Pressure O2 203 mmHg (61-120) Arterial Blood Oxygen Content 11.7 Vol % (12.0-20.0) Arterial Blood Carboxyhemoglobin 2.0 % (0-4) Arterial Blood Methemoglobin 1.2 % (0-2) Blood Gas Hemoglobin 8.2 G/DL (12.0-16.0) Oxygen Delivery Device NON REBREATHER Blood Gas Liter Flow 15 L/M Blood Gas Inspired Oxygen 100 % Imaging Last Impressions Upper Extremity Ultrasound 06/28/17 0000 Signed Impressions: Service Date/Time: Monday, June 28, 2017 08:00 - CONCLUSION: 1. No evidence for soft tissue abscess as questioned. 2. Thrombosed left cephalic vein in the antecubital fossa and proximal forearm. Berny Marie MD Liver Ultrasound 06/28/17 0000 Signed Impressions: Service Date/Time: Wednesday, June 28, 2017 07:48 - CONCLUSION: Echogenic liver possibly fatty infiltration. Tiny amount of fluid adjacent to the liver. Small bilateral pleural effusions. Status post cholecystectomy. Winston Li MD GI Bleed Scan Nuclear Medicine 06/28/17 0000 Signed Impressions: Service Date/Time: Wednesday, June 28, 2017 12:31 - CONCLUSION: No definite evidence of active colonic GI bleeding is noted. 2 very tiny areas are identified the right midabdomen but they do not correspond with bowel activity. Winston Li MD Chest X-Ray 06/28/17 0000 Signed Impressions: Service Date/Time: Wednesday, June 28, 2017 14:56 - CONCLUSION: Right IJ dual-lumen catheter in excellent position. Mild pulmonary vascular congestion with persistent cardiomegaly is unchanged Winston Li MD Central Venous Line 06/22/17 0000 Signed Impressions: Service Date/Time: June 00:00 - CONCLUSION: Uncomplicated catheter removal. Robles Corral MD Catheter Placement X-Ray 06/22/17 0000 Signed Impressions: Service Date/Time: June 14:04 - CONCLUSION: Uncomplicated PermaCath placement as above. Robles Corral MD Renal Ultrasound 05/31/17 0000 Signed Impressions: Service Date/Time: Wednesday, May 31, 2017 08:54 - CONCLUSION: 1. Abnormal appearance to the left kidney with diminutive size and poor delineation of the parenchymal architecture. 2. No gross abnormality seen in the right kidney. Aramis Scott MD Objective Remarks GENERAL: Patient is 76 yo female lying in bed sedated and intubated SKIN: Warm and dry. No rash. Well-perfused. HEAD: Normocephalic. EYES: No scleral icterus. No injection or drainage. NECK: Supple, trachea midline. No JVD or lymphadenopathy. CARDIOVASCULAR: Irregularly irregular, RESPIRATORY: No wheezes Rales occasional fine rhonchi bilaterally. GASTROINTESTINAL: Abdomen protuberant, soft, mildly distended. Nontender. Bowel sounds present. MUSCULOSKELETAL: Trace edema of all extremities. There is ~ 2 cm wound on left upper arm with central eschar of ~0.5 cm. There is surrounding swelling. . No surrounding erythema or cellulitis. No fluid or exudate expressed. NEURO: Sedated and intubated. Moves all extremities spontaneously with no focal deficit. No facial droop. Procedures Date of Insertion: Jun 12, 2017 Line: Central Venous Catheter Side: Left Location: Internal, Jugular Post Procedure Progress Note Pre Procedure Diagnosis: (1) Acute renal failure Post Procedure Diagnosis: (1) Acute renal failure (2) Chronic kidney disease (CKD) Procedure Date: Jun 22, 2017 Supervising Radiologist: Robles Corral Proceduralist/Assist: Ervin Jennings, RT(R), Shannan Levine RT(R) Anesthesia: Local, Analgesia, Conscious Sedation Plan of Activity Patient to Unit: PACU Patient Condition: Good See PACS Report for procedural detail/treatment Central Venous Access Device Procedure 1 Right Internal Jugular Hemodialysis Catheter Tunneled Placement dual lumen Pashto: 15 PICC Line Length (cm): 23 Robles Corral MD Jun 22, 2017 15:38 <Electronically signed by Robles Corral MD> 06/22/17 1538 COLONOSCOPY PROCEDURE REPORT EXAM DATE: 06/30/2017 PATIENT NAME: Silvia Wilkinson MR #: [id number] BIRTHDATE: 1940 ENDOSCOPIST: Remedios Varela MD ORDER #: [id number] JACKER FEEDER: Syed Brown and Danni Longo STATUS: inpatient INDICATIONS: The patient is a 76 yr old female here for a colonoscopy due to hematochezia and iron deficiency anemia PROCEDURE PERFORMED: Colonoscopy with ablation Colonoscopy with GI bleeding control MEDICATIONS: None and Per Anesthesia. PREP QUALITY: The [place] Bowel Prep Score was Right colon 2, Mid colon 2, and Left colon 2. Total = 6. PREP TYPE:GoLytely PREP TYPE:Type: ESTIMATED BLOOD LOSS: None CONSENT: The patient understands the risks and benefits of the procedure and understands that these risks include, but are not limited to: sedation, allergic reaction, infection, perforation and/or bleeding. Alternative means of evaluation and treatment include, among others: physical exam, x-rays, and/or surgical intervention. The patient elects to proceed with this endoscopic procedure. medical equipment was checked for proper function. Hand hygiene and appropriate measures for infection prevention was taken. After the risks, benefits and alternatives of the procedure were thoroughly explained, Informed consent was verified, confirmed and timeout was successfully executed by the treatment team. A digital exam revealed external hemorrhoids The Pentax EC-3490Li endoscope was introduced through the anus and advanced to the cecum, which was identified by both the appendix and ileocecal valve. The instrument was then slowly withdrawn as the colon was fully examined. COLON FINDINGS: Severe diverticulosis was noted in the sigmoid colon. No bleeding was noted from the diverticulosis. A 3 x 5cm patch of colitis was found in the transverse colon. The mucosa was erythematous, friable, ulcerated and oozing blood. Not clear what this area is? Possible area of previous endoscopic therapy. Injected with 5 cc of epinephrine, and ablated with APC. Good hemostasis obtained. Retroflexed views revealed internal hemorrhoids and Retroflexed views revealed medium internal hemorrhoids The scope was then completely withdrawn from the patient and the procedure terminated. PROCEDURE WITHDRAWAL TIME:10minutes ADVERSE EVENTS: There were no complications. IMPRESSIONS: 1. Severe diverticulosis was noted in the sigmoid colon 2. 3 x 5cm colitis was found in the transverse colon; The mucosa was erythematous, friable, ulcerated and oozing blood; Not clear what this area is? Possible area of previous endoscopic therapy. Injected with 5 cc of epinephrine, and ablated with APC. Good hemostasis obtained 3. Retroflexed views revealed internal hemorrhoids 4. Retroflexed views revealed medium internal hemorrhoids 5. Revealed external hemorrhoids RECOMMENDATIONS: 1. Continue surveillance 2. Yearly hemoccult 3. Monitor H/H, angiogram with embolization if further bleed. RECALL: Return 3 months Colonoscopy EGD PROCEDURE REPORT EXAM DATE: 06/30/2017 PATIENT NAME: Silvia Wilkinson MR #: [id number] BIRTHDATE: 1940 ATTENDING: Remedios Varela MD ORDER #: [id number] JACKER FEEDER: Syed Brown and Danni Longo STATUS: inpatient INDICATIONS: The patient is a 76 yr old female here for an EGD due to acute post hemorrhagic anemia PROCEDURE PERFORMED: EGD w/ biopsy MEDICATIONS: None and Per Anesthesia. TOPICAL ANESTHETIC: CONSENT: The patient understands the risks and benefits of the procedure and understands that these risks include, but are not limited to: sedation, allergic reaction, infection, perforation and/or bleeding. Alternative means of evaluation and treatment include, among others: physical exam, x-rays, and/or surgical intervention. The patient elects to proceed with this endoscopic procedure. medical equipment was checked for proper function. Hand hygiene and appropriate measures for infection prevention was taken. After the risks, benefits and alternatives of the procedure were thoroughly explained, Informed consent was verified, confirmed and timeout was successfully executed by the treatment team. The patient was anesthetized with topical anesthesia and the EC-3490Li (Pedi C) endoscope was introduced through the mouth and advanced to the second portion of the duodenum. Retroflexed views revealed no abnormalities The gastroscope was then slowly withdrawn and removed. ESOPHAGUS: There was LA Class B esophagitis noted. STOMACH: There was erythematous severe and erosive gastritis in the gastric antrum. A biopsy was performed using cold forceps. Sample obtained for microbiology. Sample sent for histology. DUODENUM: The duodenal mucosa appeared normal. ADVERSE EVENTS: There were no complications. IMPRESSIONS: 1. There was LA Class B esophagitis noted 2. There was erythematous gastritis in the gastric antrum; biopsy was performed 3. Normal duodenal mucosa 4. Retroflexed views revealed no abnormalities RECOMMENDATIONS: 1. Await biopsy results. Biopsy results will not be ready for 7-10 days. If you don't hear from us in two weeks, call our office for biopsy results. 2. Anti-reflux regimen 3. Continue PPI PATIENT CONDITION: stable DISPOSITION: Inpatient REPEAT EXAM: Return 1 year EGD pending biopsy results 07/11 endotracheal intubation Endotracheal Intubation A time-out was completed verifying correct patient, procedure, site, positioning , and special equipment if applicable. The patient was placed in a flat position. Sedation was obtained using Etomidate 20mg. The patient was easily ventilated using an ambu bag. The GLIDESCOPE TECHNOLOGY/ MAC 4 BLADE was used and inserted into the oropharynx at which time there was a Grade 1 view of the vocal cords. A 8-estonian endotracheal tube was inserted and visualized going through the vocal cords. The stylette was removed. Colorimetric change was visualized on the CO2 meter. Breath sounds were heard in both lung shaffer equally. The endotracheal tube was placed at 23 cm, measured at the teeth. A chest x-ray was ordered to assess for pneumothorax and verify endotrachealtube placement. Estimated Blood Loss: 0 The patient tolerated the procedure well and there were no complications. Date of Insertion: Jun 12, 2017 Line: Central Venous Catheter Side: Right A/P Problem List: (1) DM2 (diabetes mellitus, type 2) ICD Code: E11.9 - Type 2 diabetes mellitus without complications Status: Chronic (2) Paroxysmal atrial fibrillation ICD Code: I48.0 - Paroxysmal atrial fibrillation Status: Acute (3) Acute blood loss anemia ICD Code: D62 - Acute posthemorrhagic anemia Status: Acute (4) Thrombocytopenia ICD Code: D69.6 - Thrombocytopenia, unspecified Assessment and Plan Neuro/Psych: Anxiety disorder NOS Sedated and intubated Versed and fentanyl drip for vent synchrony Alprazolam 0.5 mg by mouth every 8hours as needed for anxiety/home medication for anxiety Acetaminophen 650 mg liquid every 6 hours when necessary for fever Acetaminophen/hydrocodone 5/325 one tablet every 6 hours as needed Pain 1-5. two tab prn pain 6-10 Pulm: Acute hypercapnic respiratory failure -reintubated Acute COPD exacerbation - resolved Tobacco abuse Extubated 06/05/17. Reintubated 06/12. Extubated 06/16. Reintubated 07/11 Continue with mechanical ventilation. Albuterol/ipratropium aerosols every 4 hours with albuterol aerosols every 2 hours On budesonide/formoterol 160 g/4.5 g 2 puffs inhaled twice a day Pulm following, Dr. Hammonds Infiltrate on chest x-ray will cover with broad-spectrum antibiotics for hospital-acquired pneumonia and de-escalate per culture and sensitivity CV: Hypertension Hyperlipidemia Paroxysmal atrial fibrillation in RVR. Monitor HR and BP keep MAP>65mmHg Inderal 10mg Q8, Imdur 30mg daily, Cardizem 60mgQ6 Echo showed 50-55% normal LV. 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 Diabetic nephropathy R Permacath placed 06/22. Vascular surgery planning for AVF as outpatient. IHD M/W/F per Nephrology, Dr. Lee. s/p HD with 2L removal. on 06/28. For HD today Renal ultrasound 05/31 revealed medical renal disease left kidney/atrophy. Right kidney within normal limits On calcium acetate 1334 mg 3 times a day GI: Cecal ulcer with visible vessel status post clipping 2 06/19 Dr. Moseley Transverse/ascending colon ulcer Sigmoid diverticulosis Internal and external hemorrhoids Will start tube feeds while intubated with a Nepro s/p EGD 06/30: Esophagitis and Gastritis. s/p Colonoscopy 06/30: Severe diverticulosis was noted in the sigmoid colon, 3 x 5cm colitis was found in the transverse colon; The mucosa was erythematous, friable, ulcerated and oozing blood s/p EPi injection and ablated with APC. Internal/ External hemorrhoids On pantoprazole 40 mg po twice a day Bleeding scan 06/28: No active bleeding noted. GI is following. For repeat EGD/ colonoscopy today C diff negative. 2 06/19 s/p EGD, colonoscopy: gastritis, ulcer in cecum with visible vessel - clipped, , ascending and transverse colon ulcer, sigmoid diverticulosis, internal and external hemorrhoids. 06/23 EGD - Severe gastropathy, cauterized by Dr. Guerrero. ?cirrhosis. US Liver: Echogenic liver possibly fatty infiltration. Tiny amount of fluid adjacent to the liver. Small bilateral pleural effusions. Status post cholecystectomy Viral Hepatitis panel negative 06/01 ID: Acute community acquired pneumonia (resolved) Asymptomatic candiduria Hospital-acquired pneumonia Vancomycin, Zosyn, azithromycin Follow up on . Wound care consult. Check UA US UE: No evidence for soft tissue abscess as questioned. Thrombosed left cephalic vein in the antecubital fossa and proximal forearm. 06/01 Sputum Kleb pneumonia, E.coli 06/11 Urine cx: C. Glabrata and Albicans Endo: Diabetes mellitus Hold Detemir 25 units subcut q12 hours until tube feeds at the goal Continue with SSI- medium scale with Accu-Cheks Q6h Heme: DVT L IJ Vein. Superficial thrombus left cephalic vein at the level of the antecubital fossa and proximal arm Anemia consistent with anemia of chronic kidney disease Thrombocytopenia Coagulopathy On iron sulfate 325 mg daily. Monitor CBC. Received 2 units PRBC, 1 unit platelets and 2u FFP 06/27. Monitor CBC, coags and fibrinogen-INR 1.0 and Fibrinogen level 198. s/p transfuse 1unit PRBC 06/29 HIT ab negative. Hematology following, Dr. Foster. Continue Epogen lorena 10,000 units with hemodialysis Not candidate for anticoagulation at this point for IJ thrombus due to active bleeding. Further anticoagulation per Heme GI prophylaxis with pantoprazole 40 mill grams po twice a day and DVT prophylaxis with SCDs and no pharmacological prophylaxis in light of cecal ulcer /GI bleed Lines: Right subclavian dialysis catheter Has a peripheral IV. Per documentation- Patient is agreeable to intubation if needed for procedure or for recurrent respiratory failure. She states she would be okay with trach if needed. In the setting of cardiac arrest, she does not want CPR, shocks, ACLS drugs or intubation. Palliative care following. Critical Care: The total critical care time was 35 minutes. Time to perform other separately billable procedures was not included in the critical care time. Deangelo Holt MD Jul 10, 2017 11:19 pm
[2017-07-10] MEDS ORDERED: MIDAZOLAM HCL 5 MG/ML VIAL (1 ML) ONE (23:59)
[2017-07-10] MEDS ORDERED: SUCCINYLCHOLINE CHLORIDE 200 MG/10 ML VIAL ONE (23:59)
[2017-07-11] VITALS (19 sets, daily range): BP systolic 74–151; BP diastolic 36–63; PULSE 56–110; RESP 16–26; TEMP 97.8–98.2; O2SAT 93–100
[2017-07-11] MEDS: MIDAZOLAM 100 MG/100 ML INJ 100 ML IV PRN (00:29)
[2017-07-11] MEDS ORDERED: fentaNYL DRIP 250 ML IV PRN (00:30)
--- NOTE | 2017-07-11 00:42 | PD.PROCEDR ---
Procedure Note Procedure Endotracheal Intubation A time-out was completed verifying correct patient, procedure, site, positioning , and special equipment if applicable. The patient was placed in a flat position. Sedation was obtained using Etomidate 20mg. The patient was easily ventilated using an ambu bag. The GLIDESCOPE TECHNOLOGY/ MAC 4 BLADE was used and inserted into the oropharynx at which time there was a Grade 1 view of the vocal cords. A 8-welsh endotracheal tube was inserted and visualized going through the vocal cords. The stylette was removed. Colorimetric change was visualized on the CO2 meter. Breath sounds were heard in both lung shaffer equally. The endotracheal tube was placed at 23 cm, measured at the teeth. A chest x-ray was ordered to assess for pneumothorax and verify endotrachealtube placement. Estimated Blood Loss: 0 The patient tolerated the procedure well and there were no complications. Deangelo Holt MD Jul 11, 2017 12:42 am
[2017-07-11] MEDS: DILTIAZEM HCL 60 MG TAB PO SCH ×2 (01:04→01:34)
[2017-07-11] MEDS: INSULIN NovoLIN REGULAR SUPPLEMENTAL SCALE SQ SCH ×4 (01:04→17:41)
[2017-07-11] MEDS ORDERED: NOREPINEPHRINE 4 MG/4 ML AMP ONE ×2 (01:52)
--- NOTE | 2017-07-11 01:54 | RADRPT ---
EXAM DATE/TIME: 07/11/2017 00:45 [facility] COMPARISON: CHEST SINGLE AP, July 10, 2017, 18:33. INDICATIONS : Status post intubation, NG tube placement. MEDICAL HISTORY : Chronic obstructive pulmonary disease. Hypertension Diabetes mellitus type II. Stage 4 kidney disease . Congestive heart failure. SURGICAL HISTORY : Umbilical hernia repair. Cholecystectomy. Appendectomy. hysterectomy ENCOUNTER: Subsequent ACUITY: 2 days PAIN SCORE: 0/10 LOCATION: Bilateral chest FINDINGS: A single AP semierect view of the chest was obtained and demonstrates interval intubation with the en dotracheal tube tip approximately 3 cm above the brayan. Nasogastric tube is been placed and is seen coursing through the esophagus into the stomach. The right-sided double lumen central venous line rem ains in place. Hazy perihilar and bibasilar opacities are noted consolidation in the right lower lobe . Both costophrenic angles remain blunted. The heart size is at the upper limits of normal. CONCLUSION: 1. Interval intubation and placement of nasogastric tube. 2. Stable pulmonary infiltrates and apparent small effusions. Milad Richardson MD on July 11, 2017 at 1:49 Board Certified Radiologist. This report was verified electronically.
[2017-07-11 02:50] LABS: BLOOD GAS BASE EXCESS 2.5 mmol/L (-2-2); BLOOD GAS CARBOXYHEMOGLOBIN 1.8 % (0-4); BLOOD GAS HCO3 27 mmol/L (22-26); BLOOD GAS METHEMOGLOBIN 1.3 % (0-2); BLOOD GAS O2 HGB SATURATION 97 % (90-100); BLOOD GAS OXYGEN CONTENT 12.8 Vol % (12.0-20.0); BLOOD GAS PCO2 50 mmHg (38-42); BLOOD GAS PO2 179 mmHg (61-120); BLOOD GAS TOTAL HGB 9.1 G/DL (12.0-16.0); CRITICAL VALUE NO; OXYGEN DEVICE VENTILATOR; TEMP CORR TO 98.6
[2017-07-11 02:51] LABS: DRAW SITE RT RADIAL; FIO2 100 %; NUMBER OF ARTERIAL PUNCTURES 1; STAT NO; ULNAR PULSE PRESENT; VENT SETTINGS PRVC/AC
[2017-07-11 05:03] LABS: HEMATOCRIT 26.6 % (35.0-46.0); MEAN CELL VOLUME 90.3 FL (80.0-100.0); MEAN CORPUSCULAR HGB CONC 34.3 % (32.0-36.0); PLATELET COUNT 42 TH/MM3 (150-450); RED BLOOD COUNT 2.95 MIL/MM3 (4.00-5.30); RED CELL DISTRIBUTION WIDTH 17.2 % (11.6-17.2); WHITE BLOOD COUNT 8.8 TH/MM3 (4.0-11.0)
[2017-07-11 05:07] LABS: HEMO FLAGS AUTO DIFF
[2017-07-11] MEDS: LORazepam 0.5 MG TAB PO PRN (05:29)
[2017-07-11] MEDS: PIPERACIL-TAZO 4.5 GM PREMIX 100 ML IV SCH ×3 (05:29→14:55)
[2017-07-11 05:30] LABS: ALKALINE PHOSPHATASE 290 U/L (45-117); ALT (GPT) 101 U/L (10-53); ANION GAP 10 MEQ/L (5-15); AST (GOT) 89 U/L (15-37); BICARBONATE 28.3 MEQ/L (21.0-32.0); BLOOD UREA NITROGEN 54 MG/DL (7-18); CHLORIDE 96 MEQ/L (98-107); GLOMERULAR FILTRATION RATE 16 ML/MIN (>89); MAGNESIUM 2.1 MG/DL (1.5-2.5); POTASSIUM 3.8 MEQ/L (3.5-5.1); SODIUM (NA) 134 MEQ/L (136-145); TOTAL BILIRUBIN ADULT 2.1 MG/DL (0.2-1.0)
[2017-07-11] MEDS: PROPRANOLOL HCL 10 MG TAB PO SCH (05:41)
[2017-07-11] MEDS: ISOSORBIDE MONONITRATE 30 MG TAB PO SCH (05:41)
[2017-07-11 06:01] LABS: BLOOD GAS BASE EXCESS 1.9 mmol/L (-2-2); BLOOD GAS CARBOXYHEMOGLOBIN 1.6 % (0-4); BLOOD GAS HCO3 28 mmol/L (22-26); BLOOD GAS METHEMOGLOBIN 1.2 % (0-2); BLOOD GAS O2 HGB SATURATION 92 % (90-100); BLOOD GAS OXYGEN CONTENT 14.3 Vol % (12.0-20.0); BLOOD GAS PCO2 60 mmHg (38-42); BLOOD GAS PO2 73 mmHg (61-120); BLOOD GAS TOTAL HGB 11.1 G/DL (12.0-16.0); TEMP CORR TO 98.6
[2017-07-11 06:06] LABS: CRITICAL VALUE YES; DRAW SITE RT RADIAL; FIO2 70 %; NUMBER OF ARTERIAL PUNCTURES 1; OXYGEN DEVICE VENTILATOR; ULNAR PULSE PRESENT; VENT SETTINGS PRVC/AC
[2017-07-11 06:07] LABS: STAT NO
[2017-07-11] MEDS: INSULIN HUMAN NPH 1,000 UNITS/10 ML VIAL SQ SCH (06:22)
[2017-07-11 07:45] LABS: BANDS 8 % (0-6); NEUTROPHIL # MANUAL DIFF 8.5 TH/MM3 (1.8-7.7); OVALOCYTES 1+ (NORMAL); PLATELET ESTIMATE SMEAR LOW (NORMAL); PLATELET MORPHOLOGY NORMAL (NORMAL); POLYS (SEG NEUTROPHILS) 89 % (16-70); SCAN/DIFF FINAL DIFF MANUAL; WBC DIFF SAMPLE 100
[2017-07-11] MEDS ORDERED: ALBUMIN 25% INJ 100 ML IV ONE (08:45)
--- NOTE | 2017-07-11 08:59 | HHI.CCPN ---
Subjective Remarks/Hospital Course The patient is a 76-year-old female with past medical history of hypertension, hyperlipidemia, diabetes mellitus, COPD, chronic kidney disease, who was admitted to [facility] yesterday under hospitalist service for acute renal failure and COPD exacerbation. On arrival the patient had BUN of 99 with a creatinine of 14 and potassium level 4.8. Chest x-ray on admission showed no evidence of any acute cardiopulmonary disease. She was seen by Dr. Lee from nephrology service and placed on bicarb drip. A renal ultrasound was obtained which showed no evidence of hydronephrosis. Her renal function continued to worsen. A Halicat was called this morning for respiratory distress. She was subsequently transferred to ICU and was intubated by Dr. Davila, the ED physician. ABG post-intubation showed severe hypercapnic and metabolic acidosis with a pH of 6.89, CO2 63, bicarb 12, pAO2 211, saturation 96 % on PRVC mode rate of 14, tidal volume 500. I time one, PEEP five and FIO2 60% . Chest x-ray post-intubation showed ET tube above the brayan and bilateral interstitial pattern. Her laboratory data this morning is significant for hyperkalemia with potassium level 6.1, BUN of 118, creatinine 14.0. When seen the patient is intubated and sedated with Diprivan drip. Her current blood pressure is 179/90 with a pulse of 117. 06/02 Patient s/p HD 06/01 with 2L fluid removal, 2 L removed today as well. . Patient remains intubated on low dose Diprivan but awake, alert and follows commands. Afebrile. She went into Afib with RVR overnight and started on Amio drip. 06/03 Converted to sinus with PAC's on amiodarone. Remains on mechanical ventilation. UOP 50 ml over last 24 hours. Following commands on sedation, will do SBT. Plan for HD today per discussion with CHEMICAL PROCESS EQUIPMENT OPERATOR. 06/04 CPAP trial terminated yesterday after patient became tachycardic, anxious. HD was not performed yesterday but plan for today per nephrology. Will use Precedex to facilitate comfort with CPAP. UOP 150. 06/05: Patient had hemodialysis today with 3 L fluid removed. Tolerating CPAP well, awake alert following commands communicating by writing. Chest x-ray remains unchanged 06/06: Overnight placed on Precedex for agitation. Also required BIPAP for hypercapnea. Weaned off Precedex by afternoon today. Currently on Xanax when necessary. At this time on BiPAP. Patient is pleasant and communicative breathing comfortably. Bilateral wheezes on exam. I have started patient on IV Solu-Medrol, Symbicort and Spiriva Reconsult 06/12: Reconsulted secondary to acute hypoxemic respiratory failure. Currently on BiPAP with significant acidosis therefore intubated. Central line placed in the left IJ. 06/13: Afebrile. Currently off phenylephrine drip. Remains intubated. Currently in sinus bradycardia. White blood cell count decreased to 16,000. Will attempt PSV trial today. 06/14: Resting comfortably in bed. Tolerated PSV trial still 8 PM last night. During tube feeds. Positive BM. Following simple commands on minimal sedation. 06/15: Return to normal sinus rhythm. Diltiazem Initiated. Will Attempt PSV Trial Again Today. Positive BMs. We'll Check C. difficile. 06/16: No acute issues overnight. Hemoglobin 7. Will transfuse 1 unit during hemodialysis. Attempt spontaneous breathing trials postdialysis with attempt extubated. 06/17: Extubated yesterday without complication of hemodialysis. -3 L. Positive BM 3. Current 4 L nasal cannula. Less lethargic as AM. 06/18: Afebrile. Tolerating diet yesterday overnight. Currently in sinus bradycardia. Positive BM. On nasal cannula and feels better than yesterday Reconsult 06/20 Reconsult for resp distress. Patient was found with labored breathing she was subsequently place on BIPAP 05/11 with 40% FIO2. Afebrile. Awake and alert , CXR showed bibasilar opacities, stable chest. 06/21 No events overnight. Off BIPAP. Awake and alert on 2L oxygen with good sats. Afebrile. Subjective 06/22: Patient currently afebrile on room air. Continues to have rhonchorous breath sounds with end expiratory wheezing. Continues to have black tarry stools. Hemoglobin stable however. Known cecal ulcer status post clipping by Dr. Moseley with transverse/ascending colon ulcers. Very pleasant. Patient is a DNR DO NOT INTUBATE. Plan for permacath today. 06/28 Patient was transferred to [facility] last night for GI bleeding. She is currently receiving HD. s/p transfusion 2units PRBC and 2U FFP. 06/29 No events overnight. s/p HD yesterday with removal 2L. Bleeding scan yesterday showed no evidence of active bleeding. Hgb 7.3 this morning. 06/30 No events overnight. For EGD/colonoscopy today. Afebrile. s/p transfusion 1unit PRBC yesterday 07/01 No events overnight. s/p EGD yesterday showed Gastritis and Esophagitis. For HD today. H/H stable. Reconsult 07/10 reconsulted for respiratory distress requiring intubation and mechanical ventilation 07/11: clinically declining. hypotensive requiring vasopressors. hypoxic on rising fio2. clinically appears septic, although likely with concomitant volume overload. intubated overnight. this will be her 4th ICU visit this hospital admission and her 3rd intubation. Objective Vital Signs Date Time Temp Pulse Resp B/P (MAP) Pulse Ox O2 Delivery O2 Flow Rate FiO2 07/11/17 08:04 100 50 07/11/17 06:00 68 07/11/17 04:00 97.8 16 122/59 (80) 07/10/17 22:03 Non-Rebreather 12.00 Intake and Output 07/11/17 07/11/17 07/12/17 08:00 16:00 00:00 Intake Total 627 ml Balance 627 ml Result Diagram: 07/11/17 0424 07/11/17 0424 Other Results Laboratory Tests Test 07/10/17 18:27 07/11/17 02:38 07/11/17 05:50 Blood Gas Puncture Site RT RADIAL RT RADIAL RT RADIAL Blood Gas Patient Temperature 98.6 98.6 98.6 Blood Gas HCO3 29 mmol/L (22-26) 27 mmol/L (22-26) 28 mmol/L (22-26) Blood Gas Base Excess 3.4 mmol/L (-2-2) 2.5 mmol/L (-2-2) 1.9 mmol/L (-2-2) Blood Gas Oxygen Saturation 97 % (90-100) 97 % (90-100) 92 % (90-100) Arterial Blood pH 7.34 (7.380-7.420) 7.36 (7.380-7.420) 7.29 (7.380-7.420) Arterial Blood Partial Pressure CO2 55 mmHg (38-42) 50 mmHg (38-42) 60 mmHg (38-42) Arterial Blood Partial Pressure O2 203 mmHg (61-120) 179 mmHg (61-120) 73 mmHg (61-120) Arterial Blood Oxygen Content 11.7 Vol % (12.0-20.0) 12.8 Vol % (12.0-20.0) 14.3 Vol % (12.0-20.0) Arterial Blood Carboxyhemoglobin 2.0 % (0-4) 1.8 % (0-4) 1.6 % (0-4) Arterial Blood Methemoglobin 1.2 % (0-2) 1.3 % (0-2) 1.2 % (0-2) Blood Gas Hemoglobin 8.2 G/DL (12.0-16.0) 9.1 G/DL (12.0-16.0) 11.1 G/DL (12.0-16.0) Oxygen Delivery Device NON REBREATHER VENTILATOR VENTILATOR Blood Gas Liter Flow 15 L/M Blood Gas Inspired Oxygen 100 % 100 % 70 % Blood Gas Ventilator Setting PRVC/AC PRVC/AC Imaging Last Impressions Upper Extremity Ultrasound 06/28/17 0000 Signed Impressions: Service Date/Time: Wednesday, June 28, 2017 08:00 - CONCLUSION: 1. No evidence for soft tissue abscess as questioned. 2. Thrombosed left cephalic vein in the antecubital fossa and proximal forearm. Berny Marie MD Liver Ultrasound 06/28/17 0000 Signed Impressions: Service Date/Time: Wednesday, June 28, 2017 07:48 - CONCLUSION: Echogenic liver possibly fatty infiltration. Tiny amount of fluid adjacent to the liver. Small bilateral pleural effusions. Status post cholecystectomy. Winston Li MD GI Bleed Scan Nuclear Medicine 06/28/17 0000 Signed Impressions: Service Date/Time: Wednesday, June 28, 2017 12:31 - CONCLUSION: No definite evidence of active colonic GI bleeding is noted. 2 very tiny areas are identified the right midabdomen but they do not correspond with bowel activity. Winston Li MD Chest X-Ray 06/28/17 0000 Signed Impressions: Service Date/Time: Wednesday, June 28, 2017 14:56 - CONCLUSION: Right IJ dual-lumen catheter in excellent position. Mild pulmonary vascular congestion with persistent cardiomegaly is unchanged Winston Li MD Central Venous Line 06/22/17 0000 Signed Impressions: Service Date/Time: June 00:00 - CONCLUSION: Uncomplicated catheter removal. Robles Corral MD Catheter Placement X-Ray 06/22/17 0000 Signed Impressions: Service Date/Time: June 14:04 - CONCLUSION: Uncomplicated PermaCath placement as above. Robles Corral MD Renal Ultrasound 05/31/17 0000 Signed Impressions: Service Date/Time: Wednesday, May 31, 2017 08:54 - CONCLUSION: 1. Abnormal appearance to the left kidney with diminutive size and poor delineation of the parenchymal architecture. 2. No gross abnormality seen in the right kidney. Aramis Scott MD Objective Remarks GENERAL: Patient is 76 yo female lying in bed sedated and intubated, critically ill SKIN: Warm and dry. No rash. Well-perfused. HEAD: Normocephalic. EYES: No scleral icterus. No injection or drainage. NECK: trachea midline. No JVD CARDIOVASCULAR: Irregularly irregular, hypotensive, on levophed. RESPIRATORY: equal chest rise. PEEP 14, fio2 80%, PRVC, peak pressures 32 cmH2O. minimal secretions in ett. GASTROINTESTINAL: Abdomen protuberant, soft, nondistended. Nontender. MUSCULOSKELETAL: Trace edema of all extremities. There is ~ 2 cm wound on left upper arm with central eschar of ~0.5 cm. There is surrounding swelling. . No surrounding erythema or cellulitis. No fluid or exudate expressed. NEURO: RASS -3. Sedated and intubated. Moves all extremities spontaneously with no focal deficit. No facial droop. withdraws to pain. does not follow commands. Procedures Date of Insertion: Jun 12, 2017 Line: Central Venous Catheter Side: Left Location: Internal, Jugular Post Procedure Progress Note Pre Procedure Diagnosis: (1) Acute renal failure Post Procedure Diagnosis: (1) Acute renal failure (2) Chronic kidney disease (CKD) Procedure Date: Jun 22, 2017 Supervising Radiologist: Robles Corral Proceduralist/Assist: Ervin Jennings, RT(R), Shannan Levine RT(R) Anesthesia: Local, Analgesia, Conscious Sedation Plan of Activity Patient to Unit: PACU Patient Condition: Good See PACS Report for procedural detail/treatment Central Venous Access Device Procedure 1 Right Internal Jugular Hemodialysis Catheter Tunneled Placement dual lumen Welsh: 15 PICC Line Length (cm): 23 Robles Corral MD Jun 22, 2017 15:38 <Electronically signed by Robles Corral MD> 06/22/17 1538 COLONOSCOPY PROCEDURE REPORT EXAM DATE: 06/30/2017 PATIENT NAME: Silvia Wilkinson MR #: [id number] BIRTHDATE: 1940 ENDOSCOPIST: Remedios Varela MD ORDER #: [id number] ULTRASOUND MANAGER: Syed Brown and Danni Longo STATUS: inpatient INDICATIONS: The patient is a 76 yr old female here for a colonoscopy due to hematochezia and iron deficiency anemia PROCEDURE PERFORMED: Colonoscopy with ablation Colonoscopy with GI bleeding control MEDICATIONS: None and Per Anesthesia. PREP QUALITY: The [place] Bowel Prep Score was Right colon 2, Mid colon 2, and Left colon 2. Total = 6. PREP TYPE:GoLytely PREP TYPE:Type: ESTIMATED BLOOD LOSS: None CONSENT: The patient understands the risks and benefits of the procedure and understands that these risks include, but are not limited to: sedation, allergic reaction, infection, perforation and/or bleeding. Alternative means of evaluation and treatment include, among others: physical exam, x-rays, and/or surgical intervention. The patient elects to proceed with this endoscopic procedure. medical equipment was checked for proper function. Hand hygiene and appropriate measures for infection prevention was taken. After the risks, benefits and alternatives of the procedure were thoroughly explained, Informed consent was verified, confirmed and timeout was successfully executed by the treatment team. A digital exam revealed external hemorrhoids The Pentax EC-3490Li endoscope was introduced through the anus and advanced to the cecum, which was identified by both the appendix and ileocecal valve. The instrument was then slowly withdrawn as the colon was fully examined. COLON FINDINGS: Severe diverticulosis was noted in the sigmoid colon. No bleeding was noted from the diverticulosis. A 3 x 5cm patch of colitis was found in the transverse colon. The mucosa was erythematous, friable, ulcerated and oozing blood. Not clear what this area is? Possible area of previous endoscopic therapy. Injected with 5 cc of epinephrine, and ablated with APC. Good hemostasis obtained. Retroflexed views revealed internal hemorrhoids and Retroflexed views revealed medium internal hemorrhoids The scope was then completely withdrawn from the patient and the procedure terminated. PROCEDURE WITHDRAWAL TIME:10minutes ADVERSE EVENTS: There were no complications. IMPRESSIONS: 1. Severe diverticulosis was noted in the sigmoid colon 2. 3 x 5cm colitis was found in the transverse colon; The mucosa was erythematous, friable, ulcerated and oozing blood; Not clear what this area is? Possible area of previous endoscopic therapy. Injected with 5 cc of epinephrine, and ablated with APC. Good hemostasis obtained 3. Retroflexed views revealed internal hemorrhoids 4. Retroflexed views revealed medium internal hemorrhoids 5. Revealed external hemorrhoids RECOMMENDATIONS: 1. Continue surveillance 2. Yearly hemoccult 3. Monitor H/H, angiogram with embolization if further bleed. RECALL: Return 3 months Colonoscopy EGD PROCEDURE REPORT EXAM DATE: 06/30/2017 PATIENT NAME: Silvia Wilkinson MR #: [id number] BIRTHDATE: 1940 ATTENDING: Remedios Varela MD ORDER #: [id number] ULTRASOUND MANAGER: Syed Brown and Danni Longo STATUS: inpatient INDICATIONS: The patient is a 76 yr old female here for an EGD due to acute post hemorrhagic anemia PROCEDURE PERFORMED: EGD w/ biopsy MEDICATIONS: None and Per Anesthesia. TOPICAL ANESTHETIC: CONSENT: The patient understands the risks and benefits of the procedure and understands that these risks include, but are not limited to: sedation, allergic reaction, infection, perforation and/or bleeding. Alternative means of evaluation and treatment include, among others: physical exam, x-rays, and/or surgical intervention. The patient elects to proceed with this endoscopic procedure. medical equipment was checked for proper function. Hand hygiene and appropriate measures for infection prevention was taken. After the risks, benefits and alternatives of the procedure were thoroughly explained, Informed consent was verified, confirmed and timeout was successfully executed by the treatment team. The patient was anesthetized with topical anesthesia and the EC-[id number] (Pedi C) endoscope was introduced through the mouth and advanced to the second portion of the duodenum. Retroflexed views revealed no abnormalities The gastroscope was then slowly withdrawn and removed. ESOPHAGUS: There was LA Class B esophagitis noted. STOMACH: There was erythematous severe and erosive gastritis in the gastric antrum. A biopsy was performed using cold forceps. Sample obtained for microbiology. Sample sent for histology. DUODENUM: The duodenal mucosa appeared normal. ADVERSE EVENTS: There were no complications. IMPRESSIONS: 1. There was LA Class B esophagitis noted 2. There was erythematous gastritis in the gastric antrum; biopsy was performed 3. Normal duodenal mucosa 4. Retroflexed views revealed no abnormalities RECOMMENDATIONS: 1. Await biopsy results. Biopsy results will not be ready for 7-10 days. If you don't hear from us in two weeks, call our office for biopsy results. 2. Anti-reflux regimen 3. Continue PPI PATIENT CONDITION: stable DISPOSITION: Inpatient REPEAT EXAM: Return 1 year EGD pending biopsy results 07/11 endotracheal intubation Endotracheal Intubation A time-out was completed verifying correct patient, procedure, site, positioning , and special equipment if applicable. The patient was placed in a flat position. Sedation was obtained using Etomidate 20mg. The patient was easily ventilated using an ambu bag. The [employer]/ MAC 4 BLADE was used and inserted into the oropharynx at which time there was a Grade 1 view of the vocal cords. A 8-nigerien endotracheal tube was inserted and visualized going through the vocal cords. The stylette was removed. Colorimetric change was visualized on the CO2 meter. Breath sounds were heard in both lung shaffer equally. The endotracheal tube was placed at 23 cm, measured at the teeth. A chest x-ray was ordered to assess for pneumothorax and verify endotrachealtube placement. Estimated Blood Loss: 0 The patient tolerated the procedure well and there were no complications. A/P Problem List: (1) DM2 (diabetes mellitus, type 2) ICD Code: E11.9 - Type 2 diabetes mellitus without complications Status: Chronic (2) Paroxysmal atrial fibrillation ICD Code: I48.0 - Paroxysmal atrial fibrillation Status: Acute (3) Acute blood loss anemia ICD Code: D62 - Acute posthemorrhagic anemia Status: Acute (4) Thrombocytopenia ICD Code: D69.6 - Thrombocytopenia, unspecified Assessment and Plan Assessment: 76yF with COPD, active smoker, admitted for COPD exacerbation with prolonged hospital course, now with her 3rd intubation this admission, 4th ICU stay, now what appears to be Healthcare associated pneumonia, possible volume overload, ESRD on IHD, and new distributive shock, likely septic from pneumonia. critically ill. declining. will re-engage palliative care. in the past, her goals have been aggressive. Neuro/Psych: Anxiety disorder NOS Sedated and intubated Versed and fentanyl drip for vent synchrony Alprazolam 0.5 mg by mouth every 8hours as needed for anxiety/home medication for anxiety Acetaminophen 650 mg liquid every 6 hours when necessary for fever Acetaminophen/hydrocodone 5/325 one tablet every 6 hours as needed Pain 1-5. two tab prn pain 6-10 Pulm: Acute hypoxic respiratory failure - recurrent, severe. Acute COPD exacerbation - resolved Tobacco abuse Extubated 06/05/17. Reintubated 06/12. Extubated 06/16. Reintubated 07/11 Continue with mechanical ventilation. PEEP 14, wean fio2 for goal spo2 > 88% Albuterol/ipratropium aerosols every 4 hours with albuterol aerosols every 2 hours On budesonide/formoterol 160 g/4.5 g 2 puffs inhaled twice a day Pulm following, Dr. Hammonds Infiltrate on chest x-ray will cover with broad-spectrum antibiotics for hospital-acquired pneumonia and de-escalate per culture and sensitivity CV: Septic Shock Hyperlipidemia Paroxysmal atrial fibrillation in RVR. Monitor HR and BP keep MAP>65mmHg hold cardizem and indural while in shock levophed for map > 65 mmhg. give albumin 25% 100mL today to help recruit extravascular volume. [holding Inderal 10mg Q8, Imdur 30mg daily, Cardizem 60mgQ6] Echo showed 50-55% normal LV. Possible lipomatous hypertrophy of the inter- atrial septum Continue atorvastatin 80 mg by mouth daily Renal/FEN/: CKD Stage IV, on HD and probable ESRD with long-term dialysis. Diabetic nephropathy R Permacath placed 06/22. Vascular surgery planning for AVF as outpatient. IHD M/W/F per Nephrology, Dr. Lee. s/p HD with 2L removal. on 06/28. For HD today Renal ultrasound 05/31 revealed medical renal disease left kidney/atrophy. Right kidney within normal limits On calcium acetate 1334 mg 3 times a day GI: Cecal ulcer with visible vessel status post clipping 2 06/19 Dr. Moseley Transverse/ascending colon ulcer Sigmoid diverticulosis Internal and external hemorrhoids tube feeds while intubated with a Nepro s/p EGD 06/30: Esophagitis and Gastritis. s/p Colonoscopy 06/30: Severe diverticulosis was noted in the sigmoid colon, 3 x 5cm colitis was found in the transverse colon; The mucosa was erythematous, friable, ulcerated and oozing blood s/p EPi injection and ablated with APC. Internal/ External hemorrhoids On pantoprazole 40 mg iv twice a day Bleeding scan 06/28: No active bleeding noted. GI is following. For repeat EGD/ colonoscopy today C diff negative. 2 06/19 s/p EGD, colonoscopy: gastritis, ulcer in cecum with visible vessel - clipped, , ascending and transverse colon ulcer, sigmoid diverticulosis, internal and external hemorrhoids. 06/23 EGD - Severe gastropathy, cauterized by Dr. Guerrero. ?cirrhosis. US Liver: Echogenic liver possibly fatty infiltration. Tiny amount of fluid adjacent to the liver. Small bilateral pleural effusions. Status post cholecystectomy Viral Hepatitis panel negative 06/01 ID: Acute community acquired pneumonia (resolved) Asymptomatic candiduria Hospital-acquired pneumonia Vancomycin, Zosyn, azithromycin Follow up on . Wound care consult. Check UA US UE: No evidence for soft tissue abscess as questioned. Thrombosed left cephalic vein in the antecubital fossa and proximal forearm. 06/01 Sputum Kleb pneumonia, E.coli 06/11 Urine cx: C. Glabrata and Albicans Endo: Diabetes mellitus Presumed adrenal insufficiency Hold Detemir 25 units subcut q12 hours until tube feeds at the goal Continue with SSI- medium scale with Accu-Cheks Q6h start hydrocortisone 50mg iv q6h. Heme: DVT L IJ Vein. Superficial thrombus left cephalic vein at the level of the antecubital fossa and proximal arm Anemia consistent with anemia of chronic kidney disease Thrombocytopenia Coagulopathy On iron sulfate 325 mg daily. Monitor CBC. Received 2 units PRBC, 1 unit platelets and 2u FFP 06/27. Monitor CBC, coags and fibrinogen-INR 1.0 and Fibrinogen level 198. s/p transfuse 1unit PRBC 06/29 HIT ab negative. Hematology following, Dr. Foster. Continue Epogen lorena 10,000 units with hemodialysis Not candidate for anticoagulation at this point for IJ thrombus due to active bleeding. Further anticoagulation per Heme GI prophylaxis with pantoprazole 40 mill grams po twice a day and DVT prophylaxis with SCDs and no pharmacological prophylaxis in light of cecal ulcer /GI bleed Lines: Right subclavian dialysis catheter 12/5 left SC TLC 12/ left radial art line. Per documentation- Patient is agreeable to intubation if needed for procedure or for recurrent respiratory failure. She states she would be okay with trach if needed. In the setting of cardiac arrest, she does not want CPR, shocks, ACLS drugs or intubation. Palliative care following. Critical Care: The total critical care time was 77 minutes. Time to perform other separately billable procedures was not included in the critical care time. Vamsi Enriquez MD Jul 11, 2017 08:59
[2017-07-11] MEDS: BUDESONIDE-FORMOTEROL 160/4.5 MCG INHALER INH SCH ×2 (09:00→19:42)
[2017-07-11] MEDS: SODIUM CHLORIDE 0.9% FLUSH 10 ML FLUSH IV FLUSH SCH (09:00)
[2017-07-11] MEDS: FERROUS SULFATE 325 MG (65 MG ELEMENTAL IRON) TAB PO SCH (09:00)
[2017-07-11] MEDS: HYDROCORTISONE SOD SUCCINATE 100 MG VIAL IV PUSH SCH ×3 (09:33→20:41)
[2017-07-11] MEDS: VITAMIN B CMPLX/VITC/FOLIC AC CAP PO SCH (09:34)
[2017-07-11] MEDS: PANTOPRAZOLE SODIUM 40 MG VIAL IV PUSH SCH ×2 (09:34→20:41)
[2017-07-11] MEDS: CALCIUM ACETATE 667 MG CAP PO SCH ×3 (09:34→17:43)
--- NOTE | 2017-07-11 10:44 | HHI.HCPN ---
Reason for visit a. To assist with evaluation and management of symptoms including: Dyspnea, anxiety b. To assist medical decision maker(s) with: better understanding of current medical conditions; weighing benefits/burdens of medical treatment options; making medical treatment decisions. Subjective/Interval History Developed respiratory distress 07/10 and required reintubation. She is currently on 100% FiO2 to maintain saturation. She is lightly sedated on fentanyl and Versed to maintain vent synchrony. She is receiving Zosyn and azithromycin for assumed aspiration pneumonia with septic shock. She has required intermittent vasopressors to maintain hemodynamic stability. She also received 1 unit packed red blood cells for Hgb 7.9, hypotension and poor oxygenation. Interim history: * Laboratory: WBC 8.8 (21.5 on 07/10), Hgb 9.1, HCT 26.6, platelets 42, sodium 134, potassium 3.8, BUN 54, creatinine 2.87, calcium 7.7. ABG pH 7.29, PCO2 60 , PO2 73, saturation 92%, HCO3 28, base excess +1.9 on 70% FiO2. Blood cultures pending. * Radiology: CT angiography shows alveolar consolidation involving the right lower lobe and to a lesser extent the posterior aspects of the upper lobes and posterior aspect of the left lower lobe consistent with pneumonia and/or atelectasis. No pulmonary embolism, small right pleural effusion and tiny left pleural effusion. Cardiomegaly and moderate emphysematous changes bilaterally. Consultations: * Critical care medicine: Managing ventilator, antibiotics, hemodynamic support and vascular access management. Dr. Reyes stated he felt as though she had septic shock and was declining rapidly, likely not survive this hospitalization. * Hematology: Following for thrombocytopenia, thought to be due to consumption. Hold anticoagulation until platelets greater than 100 consistently due to GI bleed/BRBPR. * Gastroenterology: EGD 06/23 showed erythematous gastritis in the gastric antrum with severe diverticulosis in the sigmoid colon. 3 x 5 cm colitis was found in the transverse colon. Mucosa was erythematous, friable, ulcerated and oozing blood. Injected with 5 cc of epinephrine and ablated with APC with good hemostasis obtained. Continue Protonix. GI has signed off. * Nephrology: Following for dialysis management, will follow as outpatient. AV fistula placement planned as outpatient. Currently has tunneled catheter for dialysis. . Family/friend interactions Spoke with her daughter and HCS, Dorothea Gonzalez, and updated her on her mother's decline, intubation and current condition. She is considering compassionate withdrawal of ventilator support but would like to be present. She [place] and expects to arrive within 24-36 hours. Gave anticipatory guidance on the procedures for compassionate withdrawal. All questions answered. Encouraged to call for any further questions or concerns. . Advance Directives Health Care Surrogate: Copy in medical record Advance Directive Specifics Health Care Surrogate(s): Dorothea Gonzalez, patient's daughter Objective Vital Signs Date Time Temp Pulse Resp B/P (MAP) Pulse Ox O2 Delivery O2 Flow Rate FiO2 07/11/17 08:04 100 50 07/11/17 07:32 99 100 07/11/17 06:00 68 07/11/17 04:16 100 70 07/11/17 04:00 97.8 60 16 122/59 (80) 99 07/11/17 04:00 70 07/11/17 04:00 60 07/11/17 02:00 56 07/11/17 00:53 95 100 07/11/17 00:00 58 07/11/17 00:00 98.1 58 16 151/63 (92) 93 07/11/17 00:00 100 07/10/17 23:30 98.1 58 23 151/63 88 07/10/17 22:03 96 Non-Rebreather 12.00 07/10/17 22:00 84 07/10/17 21:00 97 Non-Rebreather 12.00 07/10/17 20:00 96.1 90 24 185/79 (114) 97 07/10/17 20:00 90 07/10/17 18:30 96 20 165/96 (119) 82 07/10/17 16:00 97.9 78 18 149/70 (96) 90 07/10/17 12:30 95.4 53 19 120/55 (76) 92 Intake & Output 07/11/17 07/11/17 07:00 19:00 Intake Total 1627 ml Balance 1627 ml IV Total 1227 ml Packed Cells 400 ml # Voids 1 # Bowel Movements 0 Physical Exam CONSTITUTIONAL/GENERAL: This is an elderly female patient, intubated, sedated. TUBES/LINES/DRAINS: Arterial line, PIV 2, ETT, OGT, Cancino, Vas cath SKIN: No jaundice, rashes, or lesions. Right ACF bruise. Skin temperature appropriate. Not diaphoretic. Painful excoriation on coccyx. CARDIOVASCULAR: Irregular rhythm, controlled rate without murmurs, gallops, or rubs. No JVD. Peripheral pulses symmetric. RESPIRATORY/CHEST: Lung sounds coarse with scattered rhonchi on inspiration and expiration. GASTROINTESTINAL: Abdomen soft, nondistended. No hepato-splenomegaly, or palpable masses. No guarding. Bowel sounds present. GENITOURINARY: Without palpable bladder distension. Cancino intact to BSD. MUSCULOSKELETAL: Extremities without clubbing, cyanosis, or edema. No calf tenderness. No mottling or clubbing. NEUROLOGICAL: Intubated, sedated. PSYCHIATRIC: Intubated, sedated. Diagnostic Tests Laboratory Laboratory Tests Test 07/09/17 08:39 07/10/17 16:06 07/10/17 18:27 07/10/17 20:15 White Blood Count 11.8 TH/MM3 (4.0-11.0) 10.2 TH/MM3 (4.0-11.0) 21.5 TH/MM3 (4.0-11.0) Red Blood Count 2.66 MIL/MM3 (4.00-5.30) 2.50 MIL/MM3 (4.00-5.30) 2.62 MIL/MM3 (4.00-5.30) Hemoglobin 8.1 GM/DL (11.6-15.3) 7.9 GM/DL (11.6-15.3) 7.9 GM/DL (11.6-15.3) Hematocrit 24.4 % (35.0-46.0) 23.5 % (35.0-46.0) 24.1 % (35.0-46.0) Mean Corpuscular Volume 91.6 FL (80.0-100.0) 93.7 FL (80.0-100.0) 91.8 FL (80.0-100.0) Mean Corpuscular Hemoglobin 30.3 PG (27.0-34.0) 31.4 PG (27.0-34.0) 30.1 PG (27.0-34.0) Mean Corpuscular Hemoglobin Concent 33.0 % (32.0-36.0) 33.5 % (32.0-36.0) 32.8 % (32.0-36.0) Red Cell Distribution Width 17.3 % (11.6-17.2) 17.6 % (11.6-17.2) 17.6 % (11.6-17.2) Platelet Count 44 TH/MM3 (150-450) 39 TH/MM3 (150-450) 57 TH/MM3 (150-450) Mean Platelet Volume 9.5 FL (7.0-11.0) 9.5 FL (7.0-11.0) 9.6 FL (7.0-11.0) Neutrophils (%) (Auto) 95.7 % (16.0-70.0) 95.2 % (16.0-70.0) Lymphocytes (%) (Auto) 1.9 % (9.0-44.0) 1.6 % (9.0-44.0) Monocytes (%) (Auto) 2.1 % (0.0-8.0) 3.1 % (0.0-8.0) Eosinophils (%) (Auto) 0.0 % (0.0-4.0) 0.0 % (0.0-4.0) Basophils (%) (Auto) 0.3 % (0.0-2.0) 0.1 % (0.0-2.0) Neutrophils # (Auto) 11.3 TH/MM3 (1.8-7.7) 9.8 TH/MM3 (1.8-7.7) Lymphocytes # (Auto) 0.2 TH/MM3 (1.0-4.8) 0.2 TH/MM3 (1.0-4.8) Monocytes # (Auto) 0.2 TH/MM3 (0-0.9) 0.3 TH/MM3 (0-0.9) Eosinophils # (Auto) 0.0 TH/MM3 (0-0.4) 0.0 TH/MM3 (0-0.4) Basophils # (Auto) 0.0 TH/MM3 (0-0.2) 0.0 TH/MM3 (0-0.2) CBC Comment AUTO DIFF AUTO DIFF Differential Comment AUTO DIFF CONFIRMED AUTO DIFF CONFIRMED Platelet Estimate LOW (NORMAL) LOW (NORMAL) Platelet Morphology Comment NORMAL (NORMAL) NORMAL (NORMAL) Tear Drop Cells 1+ (NORMAL) 1+ (NORMAL) Blood Urea Nitrogen 79 MG/DL (7-18) 43 MG/DL (7-18) Creatinine 3.64 MG/DL (0.50-1.00) 2.46 MG/DL (0.50-1.00) Random Glucose 48 MG/DL (74-106) 167 MG/DL (74-106) Total Protein 5.6 GM/DL (6.4-8.2) 6.2 GM/DL (6.4-8.2) Albumin 2.8 GM/DL (3.4-5.0) 3.8 GM/DL (3.4-5.0) Calcium Level 7.8 MG/DL (8.5-10.1) 8.5 MG/DL (8.5-10.1) Alkaline Phosphatase 278 U/L (45-117) 271 U/L (45-117) Aspartate Amino Transf (AST/SGOT) 96 U/L (15-37) 86 U/L (15-37) Alanine Aminotransferase (ALT/SGPT) 101 U/L (10-53) 99 U/L (10-53) Total Bilirubin 1.1 MG/DL (0.2-1.0) 1.9 MG/DL (0.2-1.0) Sodium Level 131 MEQ/L (136-145) 134 MEQ/L (136-145) Potassium Level 4.0 MEQ/L (3.5-5.1) 3.9 MEQ/L (3.5-5.1) Chloride Level 94 MEQ/L (98-107) 95 MEQ/L (98-107) Carbon Dioxide Level 26.6 MEQ/L (21.0-32.0) 29.6 MEQ/L (21.0-32.0) Anion Gap 10 MEQ/L (5-15) 9 MEQ/L (5-15) Estimat Glomerular Filtration Rate 12 ML/MIN (>89) 19 ML/MIN (>89) Blood Gas Puncture Site RT RADIAL Blood Gas Patient Temperature 98.6 Blood Gas HCO3 29 mmol/L (22-26) Blood Gas Base Excess 3.4 mmol/L (-2-2) Blood Gas Oxygen Saturation 97 % (90-100) Arterial Blood pH 7.34 (7.380-7.420) Arterial Blood Partial Pressure CO2 55 mmHg (38-42) Arterial Blood Partial Pressure O2 203 mmHg (61-120) Arterial Blood Oxygen Content 11.7 Vol % (12.0-20.0) Arterial Blood Carboxyhemoglobin 2.0 % (0-4) Arterial Blood Methemoglobin 1.2 % (0-2) Blood Gas Hemoglobin 8.2 G/DL (12.0-16.0) Oxygen Delivery Device NON REBREATHER Blood Gas Liter Flow 15 L/M Blood Gas Inspired Oxygen 100 % Prothrombin Time 10.9 SEC (9.8-11.6) Prothromb Time International Ratio 1.1 RATIO Activated Partial Thromboplast Time 24.9 SEC (24.3-30.1) D-Dimer Quantitative (PE/DVT) 1.50 MG/L FEU (0.00-0.50) Test 07/11/17 02:38 07/11/17 04:24 07/11/17 05:50 Blood Gas Puncture Site RT RADIAL RT RADIAL Blood Gas Patient Temperature 98.6 98.6 Blood Gas HCO3 27 mmol/L (22-26) 28 mmol/L (22-26) Blood Gas Base Excess 2.5 mmol/L (-2-2) 1.9 mmol/L (-2-2) Blood Gas Oxygen Saturation 97 % (90-100) 92 % (90-100) Arterial Blood pH 7.36 (7.380-7.420) 7.29 (7.380-7.420) Arterial Blood Partial Pressure CO2 50 mmHg (38-42) 60 mmHg (38-42) Arterial Blood Partial Pressure O2 179 mmHg (61-120) 73 mmHg (61-120) Arterial Blood Oxygen Content 12.8 Vol % (12.0-20.0) 14.3 Vol % (12.0-20.0) Arterial Blood Carboxyhemoglobin 1.8 % (0-4) 1.6 % (0-4) Arterial Blood Methemoglobin 1.3 % (0-2) 1.2 % (0-2) Blood Gas Hemoglobin 9.1 G/DL (12.0-16.0) 11.1 G/DL (12.0-16.0) Oxygen Delivery Device VENTILATOR VENTILATOR Blood Gas Ventilator Setting PRVC/AC PRVC/AC Blood Gas Inspired Oxygen 100 % 70 % White Blood Count 8.8 TH/MM3 (4.0-11.0) Red Blood Count 2.95 MIL/MM3 (4.00-5.30) Hemoglobin 9.1 GM/DL (11.6-15.3) Hematocrit 26.6 % (35.0-46.0) Mean Corpuscular Volume 90.3 FL (80.0-100.0) Mean Corpuscular Hemoglobin 31.0 PG (27.0-34.0) Mean Corpuscular Hemoglobin Concent 34.3 % (32.0-36.0) Red Cell Distribution Width 17.2 % (11.6-17.2) Platelet Count 42 TH/MM3 (150-450) Mean Platelet Volume 9.8 FL (7.0-11.0) CBC Comment AUTO DIFF Differential Total Cells Counted 100 Neutrophils % (Manual) 89 % (16-70) Band Neutrophils % 8 % (0-6) Lymphocytes % 3 % (9-44) Neutrophils # (Manual) 8.5 TH/MM3 (1.8-7.7) Differential Comment FINAL DIFF MANUAL Platelet Estimate LOW (NORMAL) Platelet Morphology Comment NORMAL (NORMAL) Ovalocytes 1+ (NORMAL) Blood Urea Nitrogen 54 MG/DL (7-18) Creatinine 2.87 MG/DL (0.50-1.00) Random Glucose 184 MG/DL (74-106) Total Protein 5.3 GM/DL (6.4-8.2) Albumin 3.0 GM/DL (3.4-5.0) Calcium Level 7.7 MG/DL (8.5-10.1) Phosphorus Level 4.6 MG/DL (2.5-4.9) Magnesium Level 2.1 MG/DL (1.5-2.5) Alkaline Phosphatase 290 U/L (45-117) Aspartate Amino Transf (AST/SGOT) 89 U/L (15-37) Alanine Aminotransferase (ALT/SGPT) 101 U/L (10-53) Total Bilirubin 2.1 MG/DL (0.2-1.0) Sodium Level 134 MEQ/L (136-145) Potassium Level 3.8 MEQ/L (3.5-5.1) Chloride Level 96 MEQ/L (98-107) Carbon Dioxide Level 28.3 MEQ/L (21.0-32.0) Anion Gap 10 MEQ/L (5-15) Estimat Glomerular Filtration Rate 16 ML/MIN (>89) . Result Diagram: 07/11/17 0424 07/11/17 0424 Microbiology Microbiology Date/Time Source Procedure Growth Status 07/11/17 04:24 Blood Peripheral Aerobic Blood Culture Pending Received 07/11/17 04:24 Blood Peripheral Anaerobic Blood Culture Pending Received 07/11/17 04:18 Blood Peripheral Aerobic Blood Culture Pending Received 07/11/17 04:18 Blood Peripheral Anaerobic Blood Culture Pending Received Imaging Last Impressions Chest X-Ray 07/11/17 0000 Signed Impressions: Service Date/Time: Tuesday, July 11, 2017 00:45 - CONCLUSION: 1. Interval intubation and placement of nasogastric tube. 2. Stable pulmonary infiltrates and apparent small effusions. Milad Richardson MD CT Angiography 07/10/17 0000 Signed Impressions: Service Date/Time: Monday, July 10, 2017 19:34 - CONCLUSION: 1. Alveolar consolidation involving the right lower lobe and to a lesser extent the posterior aspects of the upper lobes and posterior aspect of the left lower lobe consistent with pneumonia and/or atelectasis. 2. No evidence of pulmonary embolism. 3. Small right pleural effusion and tiny left pleural effusion. 4. Cardiomegaly. 5. Moderate emphysematous changes bilaterally. 6. Degenerative changes and scoliosis of the thoracic spine. Ritchie Dumont MD Abdomen Ultrasound 07/04/17 0000 Signed Impressions: Service Date/Time: Tuesday, July 04, 2017 08:08 - CONCLUSION: Negative Christ Feldman MD Lower Extremity Ultrasound 07/03/17 0000 Signed Impressions: Service Date/Time: Monday, July 03, 2017 13:54 - CONCLUSION: Normal examination. Christ Feldman MD Upper Extremity Ultrasound 06/28/17 0000 Signed Impressions: Service Date/Time: Wednesday, June 28, 2017 08:00 - CONCLUSION: 1. No evidence for soft tissue abscess as questioned. 2. Thrombosed left cephalic vein in the antecubital fossa and proximal forearm. Berny Marie MD Liver Ultrasound 06/28/17 0000 Signed Impressions: Service Date/Time: Wednesday, June 28, 2017 07:48 - CONCLUSION: Echogenic liver possibly fatty infiltration. Tiny amount of fluid adjacent to the liver. Small bilateral pleural effusions. Status post cholecystectomy. Winston Li MD GI Bleed Scan Nuclear Medicine 06/28/17 0000 Signed Impressions: Service Date/Time: Wednesday, June 28, 2017 12:31 - CONCLUSION: No definite evidence of active colonic GI bleeding is noted. 2 very tiny areas are identified the right midabdomen but they do not correspond with bowel activity. Winston Li MD Central Venous Line 06/22/17 0000 Signed Impressions: Service Date/Time: June 00:00 - CONCLUSION: Uncomplicated catheter removal. Robles Corral MD Catheter Placement X-Ray 06/22/17 0000 Signed Impressions: Service Date/Time: June 14:04 - CONCLUSION: Uncomplicated PermaCath placement as above. Robles Corral MD Renal Ultrasound 05/31/17 0000 Signed Impressions: Service Date/Time: Wednesday, May 31, 2017 08:54 - CONCLUSION: 1. Abnormal appearance to the left kidney with diminutive size and poor delineation of the parenchymal architecture. 2. No gross abnormality seen in the right kidney. Aramis Scott MD Procedures 06/01-endotracheal intubation. 06/01-hemodialysis catheter placement in the right IJ vein 06/12-endotracheal intubation 06/12-left IJ central venous catheter placement 06/19-colonoscopy showing ulcers in the cecum, ascending colon, transverse colon and sigmoid diverticulosis. Biopsies taken. 07/10-endotracheal intubation. 07/11-left arterial line placement. . 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 She has been twice, in the first and was then during her second marriage. She moved to [place] in 1993 and lives in her own home since that time. She has 1 daughter, Dorothea Gonzalez who lives in [place]. Spiritual: She is a non-practicing [employer] who would accept etl informatica architect visits. Legal: She is currently able to make decisions for herself, however has designated her daughter Dorothea as her healthcare surrogate. Ethical issues impacting care: None noted at this time . Important Contacts Daughter-Dorothea Gonzalez Prognosis Her prognosis is guarded. She has been intubated twice and has required BiPAP to prevent a third intubation. She has smoked for approximately 60 years is morbidly obese and sedentary. She is now developed end-stage renal disease and is on dialysis. She has uncontrolled diabetes mellitus and anemia. She was found to have multiple ulcers on colonoscopy and is now on Procrit for combination anemia of chronic disease and GI blood loss. Given her debility from extended hospitalization and baseline decline she is at significant risk for falls, poor self-care and recurrent hospitalizations. . Code Status: Alternative Code Plan PLAN: Legal decision maker: She is currently unable to make her own decisions but has designated her daughter, Dorothea Gonzalez as the healthcare surrogate decision- maker. Goals: Aggressive short of CPR. CODE STATUS: Alternative code, intubation only. SYMPTOMS: * Dyspnea: Developed respiratory distress 07/10, requiring transfer to ICU with endotracheal intubation. She is now requiring high levels of O2, up to 100% to maintain saturation. She is felt to have pneumonia, likely aspiration type, with septic shock. Discussed with daughter and plan for compassionate withdrawal when daughter arrives from [place]. * Anxiety: At risk for worsening anxiety secondary to intubation, invasive lines , in addition to her baseline anxiety. She is currently receiving fentanyl and Versed for sedation and to maintain vent synchrony. If the daughter chooses compassionate withdrawal of ventilator support, Ativan and morphine will likely be the drugs of choice to prevent discomfort from anxiety, per the stent withdrawal protocol. Palliative care will continue to follow the patient during hospital course as condition evolves, to assist patient/decision-maker with understanding of their medical conditions, weighing benefits/burdens of treatment options, for clarification of goals of treatment. Additionally will assist with any symptoms of palliative concern. . Attestation To help prompt me to consider important information that might be impacting today's encounter and assessment, information from prior notes written by myself or my colleagues may have been "brought forward" into today's note. My signature on this note, however, is an attestation that I personally performed the exam, history, and/or decision-making noted today, and, unless otherwise indicated, the interactions with patient, family, and staff as well as the review of records all occurred today. I also attest that the listed assessment and stated plan reflect my best clinical judgment today based on the combination of historical information, prior notes, and today's exam/ interactions. When time spent is documented, it refers only to time spent today by the signer, or if indicated, combined time spent today by collaborating physician/nurse practitioner. . Sangeeta Johnson Jul 11, 2017 10:44
--- NOTE | 2017-07-11 11:09 | HHI.PR ---
Subjective Remarks 76 YOWF with VDRF,Ac renal Failure,DM, Met acidosis Last nighys events noted Developed RF, intubated Requiring pressors Sedated Objective Vital Signs Vital Signs Date Time Temp Pulse Resp B/P (MAP) Pulse Ox O2 Delivery O2 Flow Rate FiO2 07/11/17 08:04 100 50 07/11/17 07:32 99 100 07/11/17 06:00 68 07/11/17 04:16 100 70 07/11/17 04:00 97.8 60 16 122/59 (80) 99 07/11/17 04:00 70 07/11/17 04:00 60 07/11/17 02:00 56 07/11/17 00:53 95 100 07/11/17 00:00 58 07/11/17 00:00 98.1 58 16 151/63 (92) 93 07/11/17 00:00 100 07/10/17 23:30 98.1 58 23 151/63 88 07/10/17 22:03 96 Non-Rebreather 12.00 07/10/17 22:00 84 07/10/17 21:00 97 Non-Rebreather 12.00 07/10/17 20:00 96.1 90 24 185/79 (114) 97 07/10/17 20:00 90 07/10/17 18:30 96 20 165/96 (119) 82 07/10/17 16:00 97.9 78 18 149/70 (96) 90 07/10/17 12:30 95.4 53 19 120/55 (76) 92 I/O 07/10/17 07/10/17 07/10/17 07/11/17 07/11/17 07/11/17 07:00 15:00 23:00 07:00 15:00 23:00 Intake Total 100 ml 830 ml 1277 ml Output Total 2000 ml Balance -1900 ml 830 ml 1277 ml Intake Oral 480 ml IV Total 100 ml 350 ml 877 ml Packed Cells 400 ml Hemodialysis 2000 ml # Voids 0 0 1 # Bowel Movements 0 0 Result Diagram: 07/11/1742307/11/17423 Objective Remarks GENERAL: WBWN WF, On NC SKIN: Warm and dry. HEAD: Normocephalic. EYES: No scleral icterus. No injection or drainage. NECK: Supple, trachea midline. No JVD or lymphadenopathy. CARDIOVASCULAR: Regular rate and rhythm without murmurs, gallops, or rubs. RESPIRATORY: Breath sounds equal bilaterally. No accessory muscle use. GASTROINTESTINAL: Abdomen soft, non-tender, nondistended. MUSCULOSKELETAL: No cyanosis, or edema. BACK: Nontender without obvious deformity. No CVA tenderness. A/P Assessment and Plan VDRF, Reintubated 07/10 COPD Ac renal Failure DM Nicotine use AF with RVR, converted to NSR PLAN: Vent support Seadation with Fentanyl Pressors to keep MAP>.65 Monitor RYAN Tucker qid. Jac Hammonds MD Jul 11, 2017 11:09
--- NOTE | 2017-07-11 13:54 | PD.ONC.PN ---
Subjective Subjective Remarks Overnight events reviewed. Patient went into respiratory distress, was transferred to [facility] and intubated. Her healthcare surrogate was contacted and plans [place]. She plans withdraw of care tomorrow. Objective Data Date Time Temp Pulse Resp B/P (MAP) Pulse Ox O2 Delivery O2 Flow Rate FiO2 07/11/17 12:00 98.1 80 26 146/54 (84) 99 07/11/17 12:00 40 07/11/17 11:44 99 40 07/11/17 08:04 100 50 07/11/17 08:00 98.0 68 20 74/45 (55) 100 07/11/17 08:00 100 07/11/17 07:32 99 100 07/11/17 07:00 99 Mechanical Ventilator 100 07/11/17 06:00 68 07/11/17 04:16 100 70 07/11/17 04:00 97.8 60 16 122/59 (80) 99 07/11/17 04:00 70 07/11/17 04:00 60 07/11/17 02:00 56 07/11/17 00:53 95 100 07/11/17 00:00 58 07/11/17 00:00 98.1 58 16 151/63 (92) 93 07/11/17 00:00 100 07/10/17 23:30 98.1 58 23 151/63 88 07/10/17 22:03 96 Non-Rebreather 12.00 07/10/17 22:00 84 07/10/17 21:00 97 Non-Rebreather 12.00 07/10/17 20:00 96.1 90 24 185/79 (114) 97 07/10/17 20:00 90 07/10/17 18:30 96 20 165/96 (119) 82 07/10/17 16:00 97.9 78 18 149/70 (96) 90 07/11/17 07/11/17 07/11/17 07:00 15:00 23:00 Intake Total 1277 ml 100 ml Balance 1277 ml 100 ml Result Diagram: 07/11/17 0424 07/11/17 0424 Laboratory Results Laboratory Tests Test 07/10/17 16:06 07/10/17 18:27 07/10/17 20:15 07/11/17 02:38 White Blood Count 10.2 TH/MM3 21.5 TH/MM3 Red Blood Count 2.50 MIL/MM3 2.62 MIL/MM3 Hemoglobin 7.9 GM/DL 7.9 GM/DL Hematocrit 23.5 % 24.1 % Mean Corpuscular Volume 93.7 FL 91.8 FL Mean Corpuscular Hemoglobin 31.4 PG 30.1 PG Mean Corpuscular Hemoglobin Concent 33.5 % 32.8 % Red Cell Distribution Width 17.6 % 17.6 % Platelet Count 39 TH/MM3 57 TH/MM3 Mean Platelet Volume 9.5 FL 9.6 FL Neutrophils (%) (Auto) 95.2 % Lymphocytes (%) (Auto) 1.6 % Monocytes (%) (Auto) 3.1 % Eosinophils (%) (Auto) 0.0 % Basophils (%) (Auto) 0.1 % Neutrophils # (Auto) 9.8 TH/MM3 Lymphocytes # (Auto) 0.2 TH/MM3 Monocytes # (Auto) 0.3 TH/MM3 Eosinophils # (Auto) 0.0 TH/MM3 Basophils # (Auto) 0.0 TH/MM3 CBC Comment AUTO DIFF Differential Comment AUTO DIFF CONFIRMED Platelet Estimate LOW Platelet Morphology Comment NORMAL Tear Drop Cells 1+ Blood Urea Nitrogen 43 MG/DL Creatinine 2.46 MG/DL Random Glucose 167 MG/DL Total Protein 6.2 GM/DL Albumin 3.8 GM/DL Calcium Level 8.5 MG/DL Alkaline Phosphatase 271 U/L Aspartate Amino Transf (AST/SGOT) 86 U/L Alanine Aminotransferase (ALT/SGPT) 99 U/L Total Bilirubin 1.9 MG/DL Sodium Level 134 MEQ/L Potassium Level 3.9 MEQ/L Chloride Level 95 MEQ/L Carbon Dioxide Level 29.6 MEQ/L Anion Gap 9 MEQ/L Estimat Glomerular Filtration Rate 19 ML/MIN Blood Gas Puncture Site RT RADIAL RT RADIAL Blood Gas Patient Temperature 98.6 98.6 Blood Gas HCO3 29 mmol/L 27 mmol/L Blood Gas Base Excess 3.4 mmol/L 2.5 mmol/L Blood Gas Oxygen Saturation 97 % 97 % Arterial Blood pH 7.34 7.36 Arterial Blood Partial Pressure CO2 55 mmHg 50 mmHg Arterial Blood Partial Pressure O2 203 mmHg 179 mmHg Arterial Blood Oxygen Content 11.7 Vol % 12.8 Vol % Arterial Blood Carboxyhemoglobin 2.0 % 1.8 % Arterial Blood Methemoglobin 1.2 % 1.3 % Blood Gas Hemoglobin 8.2 G/DL 9.1 G/DL Oxygen Delivery Device NON REBREATHER VENTILATOR Blood Gas Liter Flow 15 L/M Blood Gas Inspired Oxygen 100 % 100 % Prothrombin Time 10.9 SEC Prothromb Time International Ratio 1.1 RATIO Activated Partial Thromboplast Time 24.9 SEC D-Dimer Quantitative (PE/DVT) 1.50 MG/L FEU Blood Gas Ventilator Setting PRVC/AC Test 07/11/17 04:24 07/11/17 05:50 White Blood Count 8.8 TH/MM3 Red Blood Count 2.95 MIL/MM3 Hemoglobin 9.1 GM/DL Hematocrit 26.6 % Mean Corpuscular Volume 90.3 FL Mean Corpuscular Hemoglobin 31.0 PG Mean Corpuscular Hemoglobin Concent 34.3 % Red Cell Distribution Width 17.2 % Platelet Count 42 TH/MM3 Mean Platelet Volume 9.8 FL CBC Comment AUTO DIFF Differential Total Cells Counted 100 Neutrophils % (Manual) 89 % Band Neutrophils % 8 % Lymphocytes % 3 % Neutrophils # (Manual) 8.5 TH/MM3 Differential Comment FINAL DIFF MANUAL Platelet Estimate LOW Platelet Morphology Comment NORMAL Ovalocytes 1+ Blood Urea Nitrogen 54 MG/DL Creatinine 2.87 MG/DL Random Glucose 184 MG/DL Total Protein 5.3 GM/DL Albumin 3.0 GM/DL Calcium Level 7.7 MG/DL Phosphorus Level 4.6 MG/DL Magnesium Level 2.1 MG/DL Alkaline Phosphatase 290 U/L Aspartate Amino Transf (AST/SGOT) 89 U/L Alanine Aminotransferase (ALT/SGPT) 101 U/L Total Bilirubin 2.1 MG/DL Sodium Level 134 MEQ/L Potassium Level 3.8 MEQ/L Chloride Level 96 MEQ/L Carbon Dioxide Level 28.3 MEQ/L Anion Gap 10 MEQ/L Estimat Glomerular Filtration Rate 16 ML/MIN Blood Gas Puncture Site RT RADIAL Blood Gas Patient Temperature 98.6 Blood Gas HCO3 28 mmol/L Blood Gas Base Excess 1.9 mmol/L Blood Gas Oxygen Saturation 92 % Arterial Blood pH 7.29 Arterial Blood Partial Pressure CO2 60 mmHg Arterial Blood Partial Pressure O2 73 mmHg Arterial Blood Oxygen Content 14.3 Vol % Arterial Blood Carboxyhemoglobin 1.6 % Arterial Blood Methemoglobin 1.2 % Blood Gas Hemoglobin 11.1 G/DL Oxygen Delivery Device VENTILATOR Blood Gas Ventilator Setting PRVC/AC Blood Gas Inspired Oxygen 70 % Culture Results Microbiology Date/Time Source Procedure Growth Status 07/11/17 04:24 Blood Peripheral Aerobic Blood Culture Pending Received 07/11/17 04:24 Blood Peripheral Anaerobic Blood Culture Pending Received 07/11/17 04:18 Blood Peripheral Aerobic Blood Culture Pending Received 07/11/17 04:18 Blood Peripheral Anaerobic Blood Culture Pending Received Imaging Studies Last 24 hours Impressions Chest X-Ray 07/11/17 0000 Signed Impressions: Service Date/Time: Tuesday, July 11, 2017 00:45 - CONCLUSION: 1. Interval intubation and placement of nasogastric tube. 2. Stable pulmonary infiltrates and apparent small effusions. Milad Richardson MD Administered Medications Medications (Trade) Dose Ordered Sig/[place] Route PRN Reason Start Time Stop Time Status Last Admin Dose Admin Atorvastatin Calcium (Lipitor) 80 mg HS PO 05/31/17 21:00 Future hold 07/09/17 22:27 Ondansetron HCl (Zofran Inj) 4 mg Q6HR PRN IV PUSH NAUSEA OR VOMITING 05/31/17 13:00 07/07/17 09:13 Sodium Chloride 1,000 ml @ 0 mls/hr Q0M PRN OTHER For Prime & Rinse Back 06/01/17 09:07 07/07/17 11:30 Heparin Sodium (Porcine) (Heparin Inj) 8,000 units UNSCH PRN IV FLUSH WITH DIALYSIS 06/01/17 09:15 07/06/17 11:27 Sodium Chloride 1,000 ml @ 200 mls/hr Q5H PRN IV WITH DIALYSIS 06/01/17 09:07 06/16/17 14:53 Mannitol (Mannitol Inj) 12.5 gm UNSCH PRN IV WITH DIALYSIS 06/01/17 09:15 06/02/17 08:06 Albumin Human 100 ml @ 60 mls/hr UNSCH PRN IV WITH DIALYSIS 06/01/17 09:15 07/10/17 10:25 Sodium Chloride (NS Flush) 5 ml UNSCH PRN IV FLUSH WITH DIALYSIS 06/01/17 09:15 06/24/17 09:31 Heparin Sodium (Porcine) (Heparin Inj) UNSCH PRN .XX WITH DIALYSIS 06/01/17 09:15 07/10/17 11:44 Gentamicin Sulfate (Gentamicin (Dialysis) Inj) 20 mg UNSCH PRN OTHER WITH DIALYSIS 06/01/17 09:15 07/10/17 11:43 Diphenhydramine HCl (Benadryl) 25 mg UNSCH PRN PO for hives/itching/anaphylaxis 06/01/17 09:15 07/05/17 10:55 Clonidine (Catapres) 0.1 mg UNSCH PRN PO for BP > 180/100 X 2 readings 06/01/17 09:15 06/22/17 02:28 Sennosides (Senokot) 17.2 mg Q12H PRN PO Moderate constipation 06/01/17 18:30 07/04/17 13:56 Alprazolam (Xanax) 0.5 mg Q8H PRN PO MILD ANXIETY 06/06/17 13:00 07/09/17 04:23 Epoetin Geoffrey (Epogen Inj) 10,000 units UNSCH PRN IV PUSH WITH DIALYSIS 06/07/17 21:30 07/10/17 11:43 Vitamin B Complex/ Vit C/Folic Acid (Nephrocaps) 1 cap DAILY PO 06/08/17 09:00 07/11/17 09:34 Calcium Acetate (Phoslo) 1,334 mg TID PO 06/08/17 09:00 07/11/17 09:34 Ferrous Sulfate (Ferrous Sulfate) 325 mg DAILY PO 06/09/17 09:00 07/09/17 08:50 Loperamide HCl (Imodium Liq) 2 mg Q4H PRN PO DIARRHEA 06/10/17 13:00 06/21/17 20:35 Sodium Chloride (NS Flush) DAILY IV FLUSH 06/12/17 09:00 07/11/17 09:00 Budesonide/ Formoterol Fumarate (Symbicort 160-4.5 Inh) 2 puff Q12HR INH 06/17/17 09:00 07/10/17 21:43 Acetaminophen/ Hydrocodone Bitart ([place] 5-325 Mg) 1 tab Q6H PRN PO pain 1-5 06/17/17 06:30 07/06/17 15:08 Dextrose (D50w (Vial) Inj) 50 ml UNSCH PRN IV PUSH HYPOGLYCEMIA-SEE COMMENTS 06/20/17 17:00 07/08/17 06:26 Albuterol Sulfate (Albuterol Neb) 2.5 mg Q2HR NEB PRN NEB dyspnea 06/22/17 06:45 07/10/17 17:30 Isosorbide Mononitrate (Imdur) 30 mg DAILY@07 PO 06/22/17 07:00 Future Hold 07/10/17 07:45 Hydralazine HCl (Apresoline Inj) 10 mg Q30M PRN IV PUSH SBP>160, DBP>90 06/22/17 06:45 07/10/17 20:21 Miscellaneous (Pill Splitter) 1 ea UNSCH PRN OTHER SEE LABEL COMMENTS 06/22/17 18:00 06/23/17 14:16 Lorazepam (Ativan) 0.5 mg Q8H PRN PO anxiety 06/24/17 12:15 07/11/17 05:29 Acetaminophen/ Hydrocodone Bitart ([place] 5-325 Mg) 2 tab Q6H PRN PO PAIN 6-10 06/28/17 08:15 07/09/17 08:49 Insulin Human Regular (NovoLIN R SUPPLEMENTAL SCALE) 1 Q6HR SQ 06/28/17 12:00 07/11/17 06:25 Pantoprazole Sodium (Protonix Inj) 40 mg Q12HR IV PUSH 06/28/17 13:00 07/11/17 09:34 Diltiazem HCl (Cardizem) 60 mg Q6H PO 06/29/17 08:00 Future Hold 07/10/17 14:36 Piperacillin Sod/ Tazobactam Sod 100 ml @ 200 mls/hr Q6H IV 07/10/17 22:00 07/11/17 09:34 Azithromycin 500 mg/Sodium Chloride 250 ml @ 250 mls/hr Q24H IV 07/10/17 21:00 07/10/17 21:10 Fentanyl Citrate 250 ml @ 5 mls/hr TITRATE PRN IV SEDATION 07/11/17 00:30 07/11/17 00:30 Midazolam HCl 100 ml @ 2 mls/hr TITRATE PRN IV SEDATION 07/11/17 00:30 07/11/17 00:29 Hydrocortisone Sodium Succinate (SoluCORTEF INJ) 50 mg Q6H IV PUSH 07/11/17 09:00 07/11/17 09:33 Objective Remarks GENERAL: Intubated, female lying supine in bed SKIN: Warm and dry. HEAD: Normocephalic. EYES: No injection or drainage. NECK: Supple, trachea midline. . CARDIOVASCULAR: +S1/S2 RESPIRATORY: anterior shaffer with occasional rhonchi. on mechanical ventilation. GASTROINTESTINAL: Abdomen with mild distension EXTREMITIES: No cyanosis NEUROLOGICAL: intubated, sedated. Assessment/Plan Problem List: (1) DVT of upper extremity (deep vein thrombosis) ICD Codes: I82.629 - Acute embolism and thrombosis of deep veins of unspecified upper extremity Status: Acute Plan: --AC on hold d/t multiple contraindications: GIB, thrombocytopenia, anemia. LUE previous internal jugular vein thrombus, L cephalic vein persists on repeat ultrasound. (2) Acute blood loss anemia ICD Codes: D62 - Acute posthemorrhagic anemia Status: Acute Plan: Supportive transfusion. GIB likely cause of anemia/thrombocytopenia. Work up negative: HIT neg, PAT neg, retic high c/w blood loss anemia. EGD/colonoscopy 06/19-->gastritis in the antrum. +large hiatal hernia. Colonoscopy showed ulcer in the cecum. These were treated with clips. There is no active bleeding. She does not have esophageal varices. EGD/colonoscopy 06/23--> erythematous gastritis in the gastric antrum; Severe diverticulosis in the sigmoid colon. 3 x 5cm colitis was found in the transverse colon; The mucosa was erythematous, friable, ulcerated and oozing blood; Injected with 5 cc of epinephrine, and ablated with APC. Good hemostasis obtained Bleeding scan (06/28/17)---> No definite evidence of active colonic GI bleeding is noted. 2 very tiny areas are identified the right midabdomen but they do not correspond with bowel activity. Assessment 76y/o female admitted with generalized weakness. Hematology consulted for anemia /thrombocytopenia. history of hypertension, diabetes, hyperlipidemia, ischemic heart disease, chronic kidney disease on hemodialysis. COPD Plan 1. monitor CBC. 2. continue supportive care Attending Statement The exam, history, and the medical decision-making described in the above note were completed with the assistance of the mid-level provider. I reviewed and agree with the findings presented. I attest that I had a [id number] encounter with the patient on the same day, and personally performed and documented my assessment and findings in the medical record. Events over the weekend leading up to reintubation reviewed. Pt seen and examined, intubated, sedated, critically ill. "surrogate" daughter at bedside, biologic daughter and health care decision maker expected later this evening. Discussed planned withdrawal. Anemia from multiple factors complicated by thrombocytopenia: GI bleed, anemia kidney disease, unable to exclude underlying BM pathology or drug effect. Required supportive transfusions. Competing needs, unable to anticoagulate for LUE DVT due to cytopenias/increase risk of bleed. Will sign off. Problem Qualifiers (1) DVT of upper extremity (deep vein thrombosis): Qualified Codes: I82.622 - Acute embolism and thrombosis of deep veins of left upper extremity Leticia Telles Jul 11, 2017 13:54 Socorro Foster MD Jul 11, 2017 18:35
--- NOTE | 2017-07-11 15:44 | HHI.NPPN ---
Subjective History of Present Illness 76-year-old female with past medical history of hypertension, diabetes mellitus, hyperlipidemia, ischemic heart disease, chronic kidney disease, chronic obstructive pulmonary disease was admitted because of generalized weakness, decreased urine output. I he was called to see the patient for elevated BUN and creatinine. The patient is known to me from before. She has been following with me in the office and last time I saw her was on May 04 and at that time her creatinine was 2.2 with given the GFR of 19-20 she had advanced stage IV chronic kidney disease most likely because of diabetic nephropathy. Additional Remarks Patient is intubated, on sedation, but opening eyes on command. Review of Systems General General Remarks Intubated and sedated. Objective Data Data 07/11/17 07/12/17 19:00 07:00 Intake Total 200 ml Balance 200 ml IV Total 200 ml Vital Signs Date Time Temp Pulse Resp B/P (MAP) Pulse Ox O2 Delivery O2 Flow Rate FiO2 07/11/17 14:00 74 07/11/17 12:00 98.1 80 26 146/54 (84) 99 07/11/17 12:00 40 07/11/17 12:00 80 07/11/17 11:44 99 40 07/11/17 10:00 74 07/11/17 08:04 100 50 07/11/17 08:00 69 07/11/17 08:00 98.0 68 20 74/45 (55) 100 07/11/17 08:00 100 07/11/17 07:32 99 100 07/11/17 07:00 99 Mechanical Ventilator 100 07/11/17 06:00 68 07/11/17 04:16 100 70 07/11/17 04:00 97.8 60 16 122/59 (80) 99 07/11/17 04:00 70 07/11/17 04:00 60 07/11/17 02:00 56 07/11/17 00:53 95 100 07/11/17 00:00 58 07/11/17 00:00 98.1 58 16 151/63 (92) 93 07/11/17 00:00 100 07/10/17 23:30 98.1 58 23 151/63 88 07/10/17 22:03 96 Non-Rebreather 12.00 07/10/17 22:00 84 07/10/17 21:00 97 Non-Rebreather 12.00 07/10/17 20:00 96.1 90 24 185/79 (114) 97 07/10/17 20:00 90 07/10/17 18:30 96 20 165/96 (119) 82 07/10/17 16:00 97.9 78 18 149/70 (96) 90 -: 07/11/17 0424 07/11/17 0424 Microbiology 07/11/17 Aerobic Blood Culture, Received Pending 07/11/17 Anaerobic Blood Culture, Received Pending 07/11/17 Aerobic Blood Culture, Received Pending 07/11/17 Anaerobic Blood Culture, Received Pending Physical Exam General Appearance Remarks Intubated. Eyes Eye Exam: Pupils Equal Throat Throat Exam: Oral Mucosa [place] & Moist Neck Neck Exam: Neck Supple Pulmonary Resp Exam: Breath Sounds Equal, Rhonchi, Decreased Bases, Diminished Breath Sounds, Poor Inspiratory Effort Cardiology CV Exam: Regular, Normal Sinus Rhythm Gastrointestinal/Abdomen GI Exam: Soft, Non-Tender, Bowel Sounds Present, Distended Extremeties Extremities Exam: Trace Edema Neurologic Neuro Exam: Obtunded, Sedated Assessment/Plan Assessment Summary: [place]/Acute Renal Failure, Hypertension, CKD Stage IV Problem List: (1) Chronic kidney disease (CKD) ICD Codes: N18.9 - Chronic kidney disease, unspecified (2) Oliguria ICD Codes: R34 - Anuria and oliguria (3) Diarrhea ICD Codes: R19.7 - Diarrhea, unspecified (4) Metabolic acidosis ICD Codes: E87.2 - Acidosis Status: Acute (5) Uremia ICD Codes: N19 - Unspecified kidney failure Status: Acute (6) Acute renal failure ICD Codes: N17.9 - Acute kidney failure, unspecified Status: Acute Plan Patient has advance stage 4 chronic kidney disease, approach stage 5. Started on HD. Patient has COPD with high CO2 and developing SOB off and on. Has tunneled catheter for HD Patient was again intubated yesterday for Resp. failure. Possible aspiration. CTA was negative for PE. HD is due in AM. Family is considering withdrawal of care. Problem Qualifiers (1) Chronic kidney disease (CKD): Qualified Codes: N18.5 - Chronic kidney disease, stage 5 (2) Acute renal failure: Qualified Codes: N17.9 - Acute kidney failure, unspecified Lexy Lee MD Jul 11, 2017 15:44
[2017-07-11] MEDS ORDERED: NOREPINEPHRINE-DEXTROSE DRIP 250 ML IV PRN (18:15)
[2017-07-11] MEDS ORDERED: TERBUTALINE INJ 1 MG/ML AMP SQ PRN (18:15)
--- NOTE | 2017-07-11 18:35 | PD.PROCEDR ---
Procedure Note Procedure Procedure: Arterial Line Placement Left radial arterial line Diagnosis: Septic shock Indications: Need for beat to beat hemodynamic monitoring Consent: Emergent Description of the Procedure: The wrist was prepped and draped sterilely. 1% lidocaine was used for local anesthesia. The pulse was located and a needle was advanced into the artery. A 20 gauge, 12 cm catheter was advanced into the artery using a modified Seldinger technique. The catheter was sutured to the skin and a sterile dressing was applied. The catheter was connected to a pressure transducer and an arterial waveform was noted. There were no immediate complications noted. There was minimal EBL. I personally performed the procedure. Vamsi Enriquez MD Jul 11, 2017 18:35
--- NOTE | 2017-07-11 18:36 | PD.PROCEDR ---
Procedure Note Procedure Central Line Procedure Note Left subclavian 7 [place] 20 cm triple lumen catheter Diagnosis: Septic shock Indications: For highly potent vasoactive substances Consent: Emergent Anesthesia: none Description of the Procedure: The patient was placed in the supine, mild- Trendelenburg position. The area was prepped and draped sterilely. A 19g needle was inserted under negative pressure aspiration and dark venous blood was obtained. A guidewire was inserted easily without resistance. A small incision was made using a #11 blade. Using a modified Seldinger technique, the dilator and 7 [place]ovan, 20 cm catheter were advanced over the guidewire without resistance. All ports were aspirated and flushed, and had brisk blood return. The line was secured at 18 centimeters at the skin using 2-0 silk interrupted sutures. A Biopatch and Transparent sterile dressing were applied. There were no immediate complications noted. There was minimal EBL. The patient tolerated the procedure well. Ultrasound guidance was not used for this procedure A Chest x-ray has been ordered. I personally performed the procedure. Vamsi Enriquez MD Jul 11, 2017 18:36
[2017-07-11] MEDS: PIPERACIL-TAZO 3.375 GM PREMIX 50 ML IV SCH (20:40)
[2017-07-11] MEDS: ATORVASTATIN 40 MG TAB PO SCH (20:41)
[2017-07-11] MEDS: AZITHROMYCIN INJ 500 MG in SODIUM CHLOR 0.9% 250 ML INJ 250 ML IV SCH (20:41)
[2017-07-12] VITALS (9 sets, daily range): BP systolic 119–136; BP diastolic 48–62; PULSE 94–124; RESP 20–26; TEMP 97.6–98.1; O2SAT 100
[2017-07-12] MEDS: PIPERACIL-TAZO 3.375 GM PREMIX 50 ML IV SCH ×2 (03:33→09:00)
[2017-07-12] MEDS: MIDAZOLAM 100 MG/100 ML INJ 100 ML IV PRN (03:33)
[2017-07-12] MEDS: HYDROCORTISONE SOD SUCCINATE 100 MG VIAL IV PUSH SCH ×2 (03:34→08:56)
[2017-07-12 05:25] LABS: HEMATOCRIT 24.4 % (35.0-46.0); MEAN CELL VOLUME 90.3 FL (80.0-100.0); MEAN CORPUSCULAR HEMOGLOBIN 30.2 PG (27.0-34.0); MEAN CORPUSCULAR HGB CONC 33.4 % (32.0-36.0); PLATELET COUNT 30 TH/MM3 (150-450); RED CELL DISTRIBUTION WIDTH 17.9 % (11.6-17.2)
[2017-07-12 05:32] LABS: APTT (PATIENT) 28.2 SEC (24.3-30.1); INTERNATIONAL NORMALIZED RATIO 1.1 RATIO
[2017-07-12] MEDS: INSULIN HUMAN NPH 1,000 UNITS/10 ML VIAL SQ SCH (05:33)
[2017-07-12 05:34] LABS: REVIEW FLAG AUTO DIFF
[2017-07-12 05:48] LABS: BICARBONATE 24.1 MEQ/L (21.0-32.0); POTASSIUM 3.4 MEQ/L (3.5-5.1)
[2017-07-12 05:57] LABS: TOTAL BILIRUBIN ADULT 1.9 MG/DL (0.2-1.0)
[2017-07-12] MEDS: INSULIN NovoLIN REGULAR SUPPLEMENTAL SCALE SQ SCH ×2 (06:29)
[2017-07-12] MEDS: PANTOPRAZOLE SODIUM 40 MG VIAL IV PUSH SCH (08:56)
[2017-07-12] MEDS: SODIUM CHLORIDE 0.9% FLUSH 10 ML FLUSH IV FLUSH SCH (08:56)
[2017-07-12] MEDS: CALCIUM ACETATE 667 MG CAP PO SCH (08:57)
[2017-07-12] MEDS: VITAMIN B CMPLX/VITC/FOLIC AC CAP PO SCH (08:57)
[2017-07-12] MEDS: FERROUS SULFATE 325 MG (65 MG ELEMENTAL IRON) TAB PO SCH (08:57)
[2017-07-12] MEDS: BUDESONIDE-FORMOTEROL 160/4.5 MCG INHALER INH SCH (08:58)
--- NOTE | 2017-07-12 10:34 | HHI.CCPN ---
Subjective Remarks/Hospital Course The patient is a 76-year-old female with past medical history of hypertension, hyperlipidemia, diabetes mellitus, COPD, chronic kidney disease, who was admitted to [facility] yesterday under hospitalist service for acute renal failure and COPD exacerbation. On arrival the patient had BUN of 99 with a creatinine of 14 and potassium level 4.8. Chest x-ray on admission showed no evidence of any acute cardiopulmonary disease. She was seen by Dr. Lee from nephrology service and placed on bicarb drip. A renal ultrasound was obtained which showed no evidence of hydronephrosis. Her renal function continued to worsen. A Halicat was called this morning for respiratory distress. She was subsequently transferred to ICU and was intubated by Dr. Davila, the ED physician. ABG post-intubation showed severe hypercapnic and metabolic acidosis with a pH of 6.89, CO2 63, bicarb 12, pAO2 211, saturation 96 % on PRVC mode rate of 14, tidal volume 500. I time one, PEEP five and FIO2 60% . Chest x-ray post-intubation showed ET tube above the brayan and bilateral interstitial pattern. Her laboratory data this morning is significant for hyperkalemia with potassium level 6.1, BUN of 118, creatinine 14.0. When seen the patient is intubated and sedated with Diprivan drip. Her current blood pressure is 179/90 with a pulse of 117. 06/02 Patient s/p HD 06/01 with 2L fluid removal, 2 L removed today as well. . Patient remains intubated on low dose Diprivan but awake, alert and follows commands. Afebrile. She went into Afib with RVR overnight and started on Amio drip. 06/03 Converted to sinus with PAC's on amiodarone. Remains on mechanical ventilation. UOP 50 ml over last 24 hours. Following commands on sedation, will do SBT. Plan for HD today per discussion with [employer]. 06/04 CPAP trial terminated yesterday after patient became tachycardic, anxious. HD was not performed yesterday but plan for today per nephrology. Will use Precedex to facilitate comfort with CPAP. UOP 150. 06/05: Patient had hemodialysis today with 3 L fluid removed. Tolerating CPAP well, awake alert following commands communicating by writing. Chest x-ray remains unchanged 06/06: Overnight placed on Precedex for agitation. Also required BIPAP for hypercapnea. Weaned off Precedex by afternoon today. Currently on Xanax when necessary. At this time on BiPAP. Patient is pleasant and communicative breathing comfortably. Bilateral wheezes on exam. I have started patient on IV Solu-Medrol, Symbicort and Spiriva Reconsult 06/12: Reconsulted secondary to acute hypoxemic respiratory failure. Currently on BiPAP with significant acidosis therefore intubated. Central line placed in the left IJ. 06/13: Afebrile. Currently off phenylephrine drip. Remains intubated. Currently in sinus bradycardia. White blood cell count decreased to 16,000. Will attempt PSV trial today. 06/14: Resting comfortably in bed. Tolerated PSV trial still 8 PM last night. During tube feeds. Positive BM. Following simple commands on minimal sedation. 06/15: Return to normal sinus rhythm. Diltiazem Initiated. Will Attempt PSV Trial Again Today. Positive BMs. We'll Check C. difficile. 06/16: No acute issues overnight. Hemoglobin 7. Will transfuse 1 unit during hemodialysis. Attempt spontaneous breathing trials postdialysis with attempt extubated. 06/17: Extubated yesterday without complication of hemodialysis. -3 L. Positive BM 3. Current 4 L nasal cannula. Less lethargic as AM. 06/18: Afebrile. Tolerating diet yesterday overnight. Currently in sinus bradycardia. Positive BM. On nasal cannula and feels better than yesterday Reconsult 06/20 Reconsult for resp distress. Patient was found with labored breathing she was subsequently place on BIPAP 05/11 with 40% FIO2. Afebrile. Awake and alert , CXR showed bibasilar opacities, stable chest. 06/21 No events overnight. Off BIPAP. Awake and alert on 2L oxygen with good sats. Afebrile. Subjective 06/22: Patient currently afebrile on room air. Continues to have rhonchorous breath sounds with end expiratory wheezing. Continues to have black tarry stools. Hemoglobin stable however. Known cecal ulcer status post clipping by Dr. Moseley with transverse/ascending colon ulcers. Very pleasant. Patient is a DNR DO NOT INTUBATE. Plan for permacath today. 06/28 Patient was transferred to [facility] last night for GI bleeding. She is currently receiving HD. s/p transfusion 2units PRBC and 2U FFP. 06/29 No events overnight. s/p HD yesterday with removal 2L. Bleeding scan yesterday showed no evidence of active bleeding. Hgb 7.3 this morning. 06/30 No events overnight. For EGD/colonoscopy today. Afebrile. s/p transfusion 1unit PRBC yesterday 07/01 No events overnight. s/p EGD yesterday showed Gastritis and Esophagitis. For HD today. H/H stable. Reconsult 07/10 reconsulted for respiratory distress requiring intubation and mechanical ventilation 07/11: clinically declining. hypotensive requiring vasopressors. hypoxic on rising fio2. clinically appears septic, although likely with concomitant volume overload. intubated overnight. this will be her 4th ICU visit this hospital admission and her 3rd intubation. 07/12: on vasopressors. no real improvements. family here and likely plan to withdraw care. I agree, given multiple re-admissions to ICU and re-intubations. Objective Vital Signs Date Time Temp Pulse Resp B/P (MAP) Pulse Ox O2 Delivery O2 Flow Rate FiO2 07/12/17 10:00 104 07/12/17 09:40 100 40 07/12/17 08:00 97.8 20 136/62 (86) 07/12/17 07:00 Mechanical Ventilator 07/10/17 22:03 12.00 Intake and Output 07/12/17 07/12/17 07/13/17 08:00 16:00 00:00 Intake Total 493.1 ml 100 ml Balance 493.1 ml 100 ml Result Diagram: 07/12/17 0445 07/12/17 0445 Imaging Last Impressions Upper Extremity Ultrasound 06/28/17 0000 Signed Impressions: Service Date/Time: Wednesday, June 28, 2017 08:00 - CONCLUSION: 1. No evidence for soft tissue abscess as questioned. 2. Thrombosed left cephalic vein in the antecubital fossa and proximal forearm. Berny Marie MD Liver Ultrasound 06/28/17 0000 Signed Impressions: Service Date/Time: Wednesday, June 28, 2017 07:48 - CONCLUSION: Echogenic liver possibly fatty infiltration. Tiny amount of fluid adjacent to the liver. Small bilateral pleural effusions. Status post cholecystectomy. Winston A. Sevigny, MD GI Bleed Scan Nuclear Medicine 06/28/17 0000 Signed Impressions: Service Date/Time: Wednesday, June 28, 2017 12:31 - CONCLUSION: No definite evidence of active colonic GI bleeding is noted. 2 very tiny areas are identified the right midabdomen but they do not correspond with bowel activity. Winston Li MD Chest X-Ray 06/28/17 0000 Signed Impressions: Service Date/Time: Wednesday, June 28, 2017 14:56 - CONCLUSION: Right IJ dual-lumen catheter in excellent position. Mild pulmonary vascular congestion with persistent cardiomegaly is unchanged Winston Li MD Central Venous Line 06/22/17 0000 Signed Impressions: Service Date/Time: June 00:00 - CONCLUSION: Uncomplicated catheter removal. Robles Corral MD Catheter Placement X-Ray 06/22/17 0000 Signed Impressions: Service Date/Time: June 14:04 - CONCLUSION: Uncomplicated PermaCath placement as above. Robles Corral MD Renal Ultrasound 05/31/17 0000 Signed Impressions: Service Date/Time: Wednesday, May 31, 2017 08:54 - CONCLUSION: 1. Abnormal appearance to the left kidney with diminutive size and poor delineation of the parenchymal architecture. 2. No gross abnormality seen in the right kidney. Aramis Scott MD Objective Remarks GENERAL: Patient is 76 yo female lying in bed sedated and intubated, critically ill SKIN: Warm and dry. No rash. Well-perfused. HEAD: Normocephalic. EYES: No scleral icterus. No injection or drainage. NECK: trachea midline. No JVD CARDIOVASCULAR: Irregularly irregular, hypotensive, on levophed. RESPIRATORY: equal chest rise. PEEP 14, fio2 40%, PRVC. minimal secretions in ett. GASTROINTESTINAL: Abdomen protuberant, soft, nondistended. Nontender. MUSCULOSKELETAL: Trace edema of all extremities. There is ~ 2 cm wound on left upper arm with central eschar of ~0.5 cm. There is surrounding swelling. . No surrounding erythema or cellulitis. No fluid or exudate expressed. NEURO: RASS -3. Sedated and intubated. Moves all extremities spontaneously with no focal deficit. No facial droop. withdraws to pain. does not follow commands. Procedures Date of Insertion: Jun 12, 2017 Line: Central Venous Catheter Side: Left Location: Internal, Jugular Post Procedure Progress Note Pre Procedure Diagnosis: (1) Acute renal failure Post Procedure Diagnosis: (1) Acute renal failure (2) Chronic kidney disease (CKD) Procedure Date: Jun 22, 2017 Supervising Radiologist: Robles Corral Proceduralist/Assist: Ervin Jennings, RT(R), Shannan Levine RT(R) Anesthesia: Local, Analgesia, Conscious Sedation Plan of Activity Patient to Unit: PACU Patient Condition: Good See PACS Report for procedural detail/treatment Central Venous Access Device Procedure 1 Right Internal Jugular Hemodialysis Catheter Tunneled Placement dual lumen Turkish: 15 PICC Line Length (cm): 23 Robles Corral MD Jun 22, 2017 15:38 <Electronically signed by Robles Corral MD> 06/22/17 1538 COLONOSCOPY PROCEDURE REPORT EXAM DATE: 06/30/2017 PATIENT NAME: Silvia Wilkinson MR #: [id number] BIRTHDATE: 1940 ENDOSCOPIST: Remedios Varela MD ORDER #: [id number] SERVICES: Syed Brown and Danni Longo STATUS: inpatient INDICATIONS: The patient is a 76 yr old female here for a colonoscopy due to hematochezia and iron deficiency anemia PROCEDURE PERFORMED: Colonoscopy with ablation Colonoscopy with GI bleeding control MEDICATIONS: None and Per Anesthesia. PREP QUALITY: The [place] Bowel Prep Score was Right colon 2, Mid colon 2, and Left colon 2. Total = 6. PREP TYPE:GoLytely PREP TYPE:Type: ESTIMATED BLOOD LOSS: None CONSENT: The patient understands the risks and benefits of the procedure and understands that these risks include, but are not limited to: sedation, allergic reaction, infection, perforation and/or bleeding. Alternative means of evaluation and treatment include, among others: physical exam, x-rays, and/or surgical intervention. The patient elects to proceed with this endoscopic procedure. medical equipment was checked for proper function. Hand hygiene and appropriate measures for infection prevention was taken. After the risks, benefits and alternatives of the procedure were thoroughly explained, Informed consent was verified, confirmed and timeout was successfully executed by the treatment team. A digital exam revealed external hemorrhoids The Pentax EC-3490Li endoscope was introduced through the anus and advanced to the cecum, which was identified by both the appendix and ileocecal valve. The instrument was then slowly withdrawn as the colon was fully examined. COLON FINDINGS: Severe diverticulosis was noted in the sigmoid colon. No bleeding was noted from the diverticulosis. A 3 x 5cm patch of colitis was found in the transverse colon. The mucosa was erythematous, friable, ulcerated and oozing blood. Not clear what this area is? Possible area of previous endoscopic therapy. Injected with 5 cc of epinephrine, and ablated with APC. Good hemostasis obtained. Retroflexed views revealed internal hemorrhoids and Retroflexed views revealed medium internal hemorrhoids The scope was then completely withdrawn from the patient and the procedure terminated. PROCEDURE WITHDRAWAL TIME:10minutes ADVERSE EVENTS: There were no complications. IMPRESSIONS: 1. Severe diverticulosis was noted in the sigmoid colon 2. 3 x 5cm colitis was found in the transverse colon; The mucosa was erythematous, friable, ulcerated and oozing blood; Not clear what this area is? Possible area of previous endoscopic therapy. Injected with 5 cc of epinephrine, and ablated with APC. Good hemostasis obtained 3. Retroflexed views revealed internal hemorrhoids 4. Retroflexed views revealed medium internal hemorrhoids 5. Revealed external hemorrhoids RECOMMENDATIONS: 1. Continue surveillance 2. Yearly hemoccult 3. Monitor H/H, angiogram with embolization if further bleed. RECALL: Return 3 months Colonoscopy EGD PROCEDURE REPORT EXAM DATE: 06/30/2017 PATIENT NAME: Silvia Wilkinson MR #: [id number] BIRTHDATE: 1940 ATTENDING: Remedios Varela MD ORDER #: [id number] SERVICES: Syed Brown and Danni Longo STATUS: inpatient INDICATIONS: The patient is a 76 yr old female here for an EGD due to acute post hemorrhagic anemia PROCEDURE PERFORMED: EGD w/ biopsy MEDICATIONS: None and Per Anesthesia. TOPICAL ANESTHETIC: CONSENT: The patient understands the risks and benefits of the procedure and understands that these risks include, but are not limited to: sedation, allergic reaction, infection, perforation and/or bleeding. Alternative means of evaluation and treatment include, among others: physical exam, x-rays, and/or surgical intervention. The patient elects to proceed with this endoscopic procedure. medical equipment was checked for proper function. Hand hygiene and appropriate measures for infection prevention was taken. After the risks, benefits and alternatives of the procedure were thoroughly explained, Informed consent was verified, confirmed and timeout was successfully executed by the treatment team. The patient was anesthetized with topical anesthesia and the EC-3490Li (Pedi C) endoscope was introduced through the mouth and advanced to the second portion of the duodenum. Retroflexed views revealed no abnormalities The gastroscope was then slowly withdrawn and removed. ESOPHAGUS: There was LA Class B esophagitis noted. STOMACH: There was erythematous severe and erosive gastritis in the gastric antrum. A biopsy was performed using cold forceps. Sample obtained for microbiology. Sample sent for histology. DUODENUM: The duodenal mucosa appeared normal. ADVERSE EVENTS: There were no complications. IMPRESSIONS: 1. There was LA Class B esophagitis noted 2. There was erythematous gastritis in the gastric antrum; biopsy was performed 3. Normal duodenal mucosa 4. Retroflexed views revealed no abnormalities RECOMMENDATIONS: 1. Await biopsy results. Biopsy results will not be ready for 7-10 days. If you don't hear from us in two weeks, call our office for biopsy results. 2. Anti-reflux regimen 3. Continue PPI PATIENT CONDITION: stable DISPOSITION: Inpatient REPEAT EXAM: Return 1 year EGD pending biopsy results 07/11 endotracheal intubation Endotracheal Intubation A time-out was completed verifying correct patient, procedure, site, positioning , and special equipment if applicable. The patient was placed in a flat position. Sedation was obtained using Etomidate 20mg. The patient was easily ventilated using an ambu bag. The [employer]/ MAC 4 BLADE was used and inserted into the oropharynx at which time there was a Grade 1 view of the vocal cords. A 8-ethiopian endotracheal tube was inserted and visualized going through the vocal cords. The stylette was removed. Colorimetric change was visualized on the CO2 meter. Breath sounds were heard in both lung shaffer equally. The endotracheal tube was placed at 23 cm, measured at the teeth. A chest x-ray was ordered to assess for pneumothorax and verify endotrachealtube placement. Estimated Blood Loss: 0 The patient tolerated the procedure well and there were no complications. A/P Problem List: (1) DM2 (diabetes mellitus, type 2) ICD Code: E11.9 - Type 2 diabetes mellitus without complications Status: Chronic (2) Paroxysmal atrial fibrillation ICD Code: I48.0 - Paroxysmal atrial fibrillation Status: Acute (3) Acute blood loss anemia ICD Code: D62 - Acute posthemorrhagic anemia Status: Acute (4) Thrombocytopenia ICD Code: D69.6 - Thrombocytopenia, unspecified Assessment and Plan Assessment: 76yF with COPD, active smoker, admitted for COPD exacerbation with prolonged hospital course, now with her 3rd intubation this admission, 4th ICU stay, now what appears to be Healthcare associated pneumonia, possible volume overload, ESRD on IHD, and new distributive shock, likely septic from pneumonia. remains critically ill. very poor prognosis. multiple ICU admissions , multiple respiratory failure episodes. unlikely to survive this hospital stay regardless of aggressive nature of care. Neuro/Psych: Anxiety disorder NOS Sedated and intubated Versed and fentanyl drip for vent synchrony Alprazolam 0.5 mg by mouth every 8hours as needed for anxiety/home medication for anxiety Acetaminophen 650 mg liquid every 6 hours when necessary for fever Acetaminophen/hydrocodone 5/325 one tablet every 6 hours as needed Pain 1-5. two tab prn pain 6-10 Pulm: Acute hypoxic respiratory failure - recurrent, severe. Acute COPD exacerbation - resolved Tobacco abuse Extubated 06/05/17. Reintubated 06/12. Extubated 06/16. Reintubated 07/11 Continue with mechanical ventilation. PEEP 14, wean fio2 for goal spo2 > 88% Albuterol/ipratropium aerosols every 4 hours with albuterol aerosols every 2 hours On budesonide/formoterol 160 g/4.5 g 2 puffs inhaled twice a day Pulm following, Dr. Hammonds Infiltrate on chest x-ray will cover with broad-spectrum antibiotics for hospital-acquired pneumonia and de-escalate per culture and sensitivity CV: Septic Shock Hyperlipidemia Paroxysmal atrial fibrillation in RVR. Monitor HR and BP keep MAP>65mmHg hold cardizem and indural while in shock levophed for map > 65 mmhg. [holding Inderal 10mg Q8, Imdur 30mg daily, Cardizem 60mgQ6] Echo showed 50-55% normal LV. Possible lipomatous hypertrophy of the inter- atrial septum Continue atorvastatin 80 mg by mouth daily Renal/FEN/: CKD Stage IV, on HD and probable ESRD with fdc dialysis. Diabetic nephropathy R Permacath placed 06/22. Vascular surgery planning for AVF as outpatient. IHD M/W/F per Nephrology, Dr. Lee. s/p HD with 2L removal. on 06/28. For HD today Renal ultrasound 05/31 revealed medical renal disease left kidney/atrophy. Right kidney within normal limits On calcium acetate 1334 mg 3 times a day GI: Cecal ulcer with visible vessel status post clipping 2 06/19 Dr. Moseley Transverse/ascending colon ulcer Sigmoid diverticulosis Internal and external hemorrhoids tube feeds while intubated with a Nepro s/p EGD 06/30: Esophagitis and Gastritis. s/p Colonoscopy 06/30: Severe diverticulosis was noted in the sigmoid colon, 3 x 5cm colitis was found in the transverse colon; The mucosa was erythematous, friable, ulcerated and oozing blood s/p EPi injection and ablated with APC. Internal/ External hemorrhoids On pantoprazole 40 mg iv twice a day Bleeding scan 06/28: No active bleeding noted. GI is following. For repeat EGD/ colonoscopy today C diff negative. 2 06/19 s/p EGD, colonoscopy: gastritis, ulcer in cecum with visible vessel - clipped, , ascending and transverse colon ulcer, sigmoid diverticulosis, internal and external hemorrhoids. 06/23 EGD - Severe gastropathy, cauterized by Dr. Guerrero. ?cirrhosis. US Liver: Echogenic liver possibly fatty infiltration. Tiny amount of fluid adjacent to the liver. Small bilateral pleural effusions. Status post cholecystectomy Viral Hepatitis panel negative 06/01 ID: Acute community acquired pneumonia (resolved) Asymptomatic candiduria Hospital-acquired pneumonia Vancomycin, Zosyn, azithromycin Follow up on BC. Wound care consult. Check UA US UE: No evidence for soft tissue abscess as questioned. Thrombosed left cephalic vein in the antecubital fossa and proximal forearm. 06/01 Sputum Kleb pneumonia, E.coli 06/11 Urine cx: C. Glabrata and Albicans Endo: Diabetes mellitus Presumed adrenal insufficiency Hold Detemir 25 units subcut q12 hours until tube feeds at the goal Continue with SSI- medium scale with Accu-Cheks Q6h hydrocortisone 50mg iv q6h. Heme: DVT L IJ Vein. Superficial thrombus left cephalic vein at the level of the antecubital fossa and proximal arm Anemia consistent with anemia of chronic kidney disease Thrombocytopenia Coagulopathy On iron sulfate 325 mg daily. Monitor CBC. Received 2 units PRBC, 1 unit platelets and 2u FFP 06/27. Monitor CBC, coags and fibrinogen-INR 1.0 and Fibrinogen level 198. s/p transfuse 1unit PRBC 06/29 HIT ab negative. Hematology following, Dr. Foster. Continue Epogen lorena 10,000 units with hemodialysis Not candidate for anticoagulation at this point for IJ thrombus due to active bleeding. Further anticoagulation per Heme GI prophylaxis with pantoprazole 40 mill grams po twice a day and DVT prophylaxis with SCDs and no pharmacological prophylaxis in light of cecal ulcer /GI bleed Lines: Right subclavian dialysis catheter 12/5 left SC TLC 12/5 left radial art line. Per documentation- Patient is agreeable to intubation if needed for procedure or for recurrent respiratory failure. She states she would be okay with trach if needed. In the setting of cardiac arrest, she does not want CPR, shocks, ACLS drugs or intubation. Palliative care following. Vamsi Enriquez MD Jul 12, 2017 10:34
[2017-07-12] MEDS ORDERED: fentaNYL DRIP 250 ML IV PRN (11:15)
[2017-07-12] MEDS ORDERED: HYDROmorphone HCL PF 2 MG/ML VIAL IV PUSH ONE ×2 (11:15→11:30)
[2017-07-12] MEDS ORDERED: HYOSCYAMINE 0.5 MG/ML AMP IV PUSH ONE (11:15)
[2017-07-12] MEDS ORDERED: LORazepam 2 MG/ML VIAL IV PUSH ONE ×2 (11:15→11:30)
--- NOTE | 2017-07-12 11:24 | HHI.NPPN ---
Subjective History of Present Illness 76-year-old female with past medical history of hypertension, diabetes mellitus, hyperlipidemia, ischemic heart disease, chronic kidney disease, chronic obstructive pulmonary disease was admitted because of generalized weakness, decreased urine output. I he was called to see the patient for elevated BUN and creatinine. The patient is known to me from before. She has been following with me in the office and last time I saw her was on May 04 and at that time her creatinine was 2.2 with given the GFR of 19-20 she had advanced stage IV chronic kidney disease most likely because of diabetic nephropathy. Additional Remarks Patient is intubated, and on sedation. Review of Systems General General Remarks Intubated and sedated. Objective Data Data 07/12/17 07/13/17 19:00 07:00 Intake Total 100 ml Balance 100 ml IV Total 100 ml Vital Signs Date Time Temp Pulse Resp B/P (MAP) Pulse Ox O2 Delivery O2 Flow Rate FiO2 07/12/17 10:00 104 07/12/17 09:40 100 40 07/12/17 08:00 110 07/12/17 08:00 40 07/12/17 08:00 97.8 108 20 136/62 (86) 100 07/12/17 07:00 100 Mechanical Ventilator 40 07/12/17 06:00 94 07/12/17 04:05 100 40 07/12/17 04:00 124 07/12/17 04:00 40 07/12/17 04:00 97.6 124 26 119/48 (71) 100 07/12/17 02:00 110 07/12/17 00:26 100 40 07/12/17 00:00 117 07/12/17 00:00 40 07/12/17 00:00 98.1 117 20 134/55 (81) 100 07/11/17 22:00 94 07/11/17 20:38 100 40 07/11/17 20:00 40 07/11/17 20:00 98.2 110 20 89/50 (63) 100 07/11/17 20:00 110 07/11/17 19:15 110 141/66 07/11/17 19:00 100 Mechanical Ventilator 40 07/11/17 18:00 64 07/11/17 18:00 68 87/41 07/11/17 17:45 62 135/51 07/11/17 17:07 100 40 07/11/17 16:00 97.9 68 20 102/36 (58) 100 07/11/17 16:00 68 07/11/17 16:00 40 07/11/17 14:00 74 07/11/17 12:00 98.1 80 26 146/54 (84) 99 07/11/17 12:00 40 07/11/17 12:00 80 07/11/17 11:44 99 40 -: 07/12/17 0445 07/12/17 0445 Physical Exam General Appearance Remarks Intubated. Eyes Eye Exam: Pupils Equal Throat Throat Exam: Oral Mucosa [place] & Moist Neck Neck Exam: Neck Supple Pulmonary Resp Exam: Breath Sounds Equal, Rhonchi, Decreased Bases, Diminished Breath Sounds, Poor Inspiratory Effort Cardiology CV Exam: Regular, Normal Sinus Rhythm Gastrointestinal/Abdomen GI Exam: Soft, Non-Tender, Bowel Sounds Present, Distended Extremeties Extremities Exam: Trace Edema Neurologic Neuro Exam: Obtunded, Sedated Assessment/Plan Assessment Summary: [place]/Acute Renal Failure, Hypertension, CKD Stage IV Problem List: (1) Chronic kidney disease (CKD) ICD Codes: N18.9 - Chronic kidney disease, unspecified (2) Oliguria ICD Codes: R34 - Anuria and oliguria (3) Diarrhea ICD Codes: R19.7 - Diarrhea, unspecified (4) Metabolic acidosis ICD Codes: E87.2 - Acidosis Status: Acute (5) Uremia ICD Codes: N19 - Unspecified kidney failure Status: Acute (6) Acute renal failure ICD Codes: N17.9 - Acute kidney failure, unspecified Status: Acute Plan Patient has advance stage 4 chronic kidney disease, approach stage 5. Started on HD. Patient has COPD with high CO2 and developing SOB off and on. Has tunneled catheter for HD Patient was again intubated yesterday for Resp. failure. Possible aspiration. CTA was negative for PE. Family is decided for withdrawal of care and no HD. I will sign off from Nephrology, please call again if needed. Problem Qualifiers (1) Chronic kidney disease (CKD): Qualified Codes: N18.5 - Chronic kidney disease, stage 5 (2) Acute renal failure: Qualified Codes: N17.9 - Acute kidney failure, unspecified Lexy Lee MD Jul 12, 2017 11:24
--- NOTE | 2017-07-12 11:25 | HHI.HCPN ---
Reason for visit a. To assist with evaluation and management of symptoms including: Dyspnea, anxiety b. To assist medical decision maker(s) with: better understanding of current medical conditions; weighing benefits/burdens of medical treatment options; making medical treatment decisions. (Sangeeta Johnson) Subjective/Interval History Family at bedside, wishes to withdraw ventilator support, as they do not believe the patient wouldn't want to continue aggressive treatment. Discussed with Dr. Enriquez and Dr. Tobin agreed patient's outcome is likely poor given the multiple intubations she has had during this hospitalization. Interim history: * Laboratory: WBC 7.0, Hgb 8.2, HCT 24.4, platelets 30, sodium 134, potassium 3.4, BUN 62, creatinine 3.25, calcium 8.3, AST 73, ALT 81, alkaline phosphatase 219. Blood cultures pending. * Radiology: 07/11 chest x-ray shows intubation and placement of NG tube with stable pulmonary infiltrates and small effusions. CT angiography 07/10 shows alveolar consolidation involving the right lower lobe and to a lesser extent the posterior aspects of the upper lobes and posterior aspect of the left lower lobe consistent with pneumonia and/or atelectasis. No pulmonary embolism, small right pleural effusion and tiny left pleural effusion. Cardiomegaly and moderate emphysematous changes bilaterally. Consultations: * Critical care medicine: Managing ventilator, antibiotics, hemodynamic support and vascular access management. Dr. Reyes stated he felt as though she had septic shock and was declining rapidly, likely not survive this hospitalization. Agrees with compassionate withdrawal. * Hematology: Following for thrombocytopenia, thought to be due to consumption. Hold anticoagulation until platelets greater than 100 consistently due to GI bleed/BRBPR. * Gastroenterology: EGD 06/23 showed erythematous gastritis in the gastric antrum with severe diverticulosis in the sigmoid colon. 3 x 5 cm colitis was found in the transverse colon. Mucosa was erythematous, friable, ulcerated and oozing blood. Injected with 5 cc of epinephrine and ablated with APC with good hemostasis obtained. Continue Protonix. GI has signed off. * Nephrology: Following for dialysis management, will follow as outpatient. AV fistula placement planned as outpatient. Currently has tunneled catheter for dialysis. Patient's family refused dialysis today. . Family/friend interactions Spoke with daughter and patient's best friend at bedside. Discussed clinical course thus far and scenarios of likely outcome. In previous discussions with the patient she had stated she did not wish to stay on a ventilator, he would not like to be maintained on machines and would not be happy with his quality of life. These conversations were held with both myself and her daughter and her daughter agrees that this would not be consistent with her mother's wishes. Plan for compassionate ventilator withdrawal today. . (Sangeeta Johnson) Advance Directives Health Care Surrogate: Copy in medical record (Sangeeta Johnson) Advance Directive Specifics Health Care Surrogate(s): Dorothea Gonzalez, patient's daughter (Sangeeta Johnson) Objective Vital Signs Date Time Temp Pulse Resp B/P (MAP) Pulse Ox O2 Delivery O2 Flow Rate FiO2 07/12/17 10:00 104 07/12/17 09:40 100 40 07/12/17 08:00 110 07/12/17 08:00 40 07/12/17 08:00 97.8 108 20 136/62 (86) 100 07/12/17 07:00 100 Mechanical Ventilator 40 07/12/17 06:00 94 07/12/17 04:05 100 40 07/12/17 04:00 124 07/12/17 04:00 40 07/12/17 04:00 97.6 124 26 119/48 (71) 100 07/12/17 02:00 110 07/12/17 00:26 100 40 07/12/17 00:00 117 07/12/17 00:00 40 07/12/17 00:00 98.1 117 20 134/55 (81) 100 07/11/17 22:00 94 07/11/17 20:38 100 40 07/11/17 20:00 40 07/11/17 20:00 98.2 110 20 89/50 (63) 100 07/11/17 20:00 110 07/11/17 19:15 110 141/66 07/11/17 19:00 100 Mechanical Ventilator 40 07/11/17 18:00 64 07/11/17 18:00 68 87/41 07/11/17 17:45 62 135/51 07/11/17 17:07 100 40 07/11/17 16:00 97.9 68 20 102/36 (58) 100 07/11/17 16:00 68 07/11/17 16:00 40 07/11/17 14:00 74 07/11/17 12:00 98.1 80 26 146/54 (84) 99 07/11/17 12:00 40 07/11/17 12:00 80 07/11/17 11:44 99 40 Intake & Output 07/12/17 07/12/17 06:59 18:59 Intake Total 793.1 ml 100 ml Balance 793.1 ml 100 ml IV Total 565.1 ml 100 ml Tube Feeding 228 ml # Voids 1 # Bowel Movements 0 Physical Exam CONSTITUTIONAL/GENERAL: This is an elderly female patient, intubated, sedated. TUBES/LINES/DRAINS: Arterial line, left subclavian central line, PIV 2, ETT, OGT, [place], Vas cath SKIN: No jaundice, rashes, or lesions. Right ACF bruise. Skin temperature appropriate. Not diaphoretic. Painful excoriation on coccyx. CARDIOVASCULAR: Irregular rhythm, controlled rate without murmurs, gallops, or rubs. No JVD. Peripheral pulses symmetric. RESPIRATORY/CHEST: Lung sounds coarse with scattered rhonchi on inspiration and expiration. GASTROINTESTINAL: Abdomen soft, nondistended. No hepato-splenomegaly, or palpable masses. No guarding. Bowel sounds hypoactive. GENITOURINARY: Without palpable bladder distension. [place] intact to BSD. MUSCULOSKELETAL: Extremities without clubbing, cyanosis, or edema. No calf tenderness. No mottling or clubbing. NEUROLOGICAL: Intubated, sedated. PSYCHIATRIC: Intubated, sedated. . (Sangeeta Johnson) Diagnostic Tests Laboratory Laboratory Tests Test 07/10/17 16:06 07/10/17 18:27 07/10/17 20:15 07/11/17 02:38 White Blood Count 10.2 TH/MM3 (4.0-11.0) 21.5 TH/MM3 (4.0-11.0) Red Blood Count 2.50 MIL/MM3 (4.00-5.30) 2.62 MIL/MM3 (4.00-5.30) Hemoglobin 7.9 GM/DL (11.6-15.3) 7.9 GM/DL (11.6-15.3) Hematocrit 23.5 % (35.0-46.0) 24.1 % (35.0-46.0) Mean Corpuscular Volume 93.7 FL (80.0-100.0) 91.8 FL (80.0-100.0) Mean Corpuscular Hemoglobin 31.4 PG (27.0-34.0) 30.1 PG (27.0-34.0) Mean Corpuscular Hemoglobin Concent 33.5 % (32.0-36.0) 32.8 % (32.0-36.0) Red Cell Distribution Width 17.6 % (11.6-17.2) 17.6 % (11.6-17.2) Platelet Count 39 TH/MM3 (150-450) 57 TH/MM3 (150-450) Mean Platelet Volume 9.5 FL (7.0-11.0) 9.6 FL (7.0-11.0) Neutrophils (%) (Auto) 95.2 % (16.0-70.0) Lymphocytes (%) (Auto) 1.6 % (9.0-44.0) Monocytes (%) (Auto) 3.1 % (0.0-8.0) Eosinophils (%) (Auto) 0.0 % (0.0-4.0) Basophils (%) (Auto) 0.1 % (0.0-2.0) Neutrophils # (Auto) 9.8 TH/MM3 (1.8-7.7) Lymphocytes # (Auto) 0.2 TH/MM3 (1.0-4.8) Monocytes # (Auto) 0.3 TH/MM3 (0-0.9) Eosinophils # (Auto) 0.0 TH/MM3 (0-0.4) Basophils # (Auto) 0.0 TH/MM3 (0-0.2) CBC Comment AUTO DIFF Differential Comment AUTO DIFF CONFIRMED Platelet Estimate LOW (NORMAL) Platelet Morphology Comment NORMAL (NORMAL) Tear Drop Cells 1+ (NORMAL) Blood Urea Nitrogen 43 MG/DL (7-18) Creatinine 2.46 MG/DL (0.50-1.00) Random Glucose 167 MG/DL (74-106) Total Protein 6.2 GM/DL (6.4-8.2) Albumin 3.8 GM/DL (3.4-5.0) Calcium Level 8.5 MG/DL (8.5-10.1) Alkaline Phosphatase 271 U/L (45-117) Aspartate Amino Transf (AST/SGOT) 86 U/L (15-37) Alanine Aminotransferase (ALT/SGPT) 99 U/L (10-53) Total Bilirubin 1.9 MG/DL (0.2-1.0) Sodium Level 134 MEQ/L (136-145) Potassium Level 3.9 MEQ/L (3.5-5.1) Chloride Level 95 MEQ/L (98-107) Carbon Dioxide Level 29.6 MEQ/L (21.0-32.0) Anion Gap 9 MEQ/L (5-15) Estimat Glomerular Filtration Rate 19 ML/MIN (>89) Blood Gas Puncture Site RT RADIAL RT RADIAL Blood Gas Patient Temperature 98.6 98.6 Blood Gas HCO3 29 mmol/L (22-26) 27 mmol/L (22-26) Blood Gas Base Excess 3.4 mmol/L (-2-2) 2.5 mmol/L (-2-2) Blood Gas Oxygen Saturation 97 % (90-100) 97 % (90-100) Arterial Blood pH 7.34 (7.380-7.420) 7.36 (7.380-7.420) Arterial Blood Partial Pressure CO2 55 mmHg (38-42) 50 mmHg (38-42) Arterial Blood Partial Pressure O2 203 mmHg (61-120) 179 mmHg (61-120) Arterial Blood Oxygen Content 11.7 Vol % (12.0-20.0) 12.8 Vol % (12.0-20.0) Arterial Blood Carboxyhemoglobin 2.0 % (0-4) 1.8 % (0-4) Arterial Blood Methemoglobin 1.2 % (0-2) 1.3 % (0-2) Blood Gas Hemoglobin 8.2 G/DL (12.0-16.0) 9.1 G/DL (12.0-16.0) Oxygen Delivery Device NON REBREATHER VENTILATOR Blood Gas Liter Flow 15 L/M Blood Gas Inspired Oxygen 100 % 100 % Prothrombin Time 10.9 SEC (9.8-11.6) Prothromb Time International Ratio 1.1 RATIO Activated Partial Thromboplast Time 24.9 SEC (24.3-30.1) D-Dimer Quantitative (PE/DVT) 1.50 MG/L FEU (0.00-0.50) Blood Gas Ventilator Setting PRVC/AC Test 07/11/17 04:24 07/11/17 05:50 07/11/17 20:20 07/12/17 04:45 White Blood Count 8.8 TH/MM3 (4.0-11.0) 7.0 TH/MM3 (4.0-11.0) Red Blood Count 2.95 MIL/MM3 (4.00-5.30) 2.70 MIL/MM3 (4.00-5.30) Hemoglobin 9.1 GM/DL (11.6-15.3) 8.2 GM/DL (11.6-15.3) Hematocrit 26.6 % (35.0-46.0) 24.4 % (35.0-46.0) Mean Corpuscular Volume 90.3 FL (80.0-100.0) 90.3 FL (80.0-100.0) Mean Corpuscular Hemoglobin 31.0 PG (27.0-34.0) 30.2 PG (27.0-34.0) Mean Corpuscular Hemoglobin Concent 34.3 % (32.0-36.0) 33.4 % (32.0-36.0) Red Cell Distribution Width 17.2 % (11.6-17.2) 17.9 % (11.6-17.2) Platelet Count 42 TH/MM3 (150-450) 30 TH/MM3 (150-450) Mean Platelet Volume 9.8 FL (7.0-11.0) 9.1 FL (7.0-11.0) CBC Comment AUTO DIFF Differential Total Cells Counted 100 Neutrophils % (Manual) 89 % (16-70) Band Neutrophils % 8 % (0-6) Lymphocytes % 3 % (9-44) Neutrophils # (Manual) 8.5 TH/MM3 (1.8-7.7) Differential Comment FINAL DIFF MANUAL Platelet Estimate LOW (NORMAL) Platelet Morphology Comment NORMAL (NORMAL) Ovalocytes 1+ (NORMAL) Blood Urea Nitrogen 54 MG/DL (7-18) 62 MG/DL (7-18) Creatinine 2.87 MG/DL (0.50-1.00) 3.25 MG/DL (0.50-1.00) Random Glucose 184 MG/DL (74-106) 184 MG/DL (74-106) Total Protein 5.3 GM/DL (6.4-8.2) 5.1 GM/DL (6.4-8.2) Albumin 3.0 GM/DL (3.4-5.0) 2.6 GM/DL (3.4-5.0) Calcium Level 7.7 MG/DL (8.5-10.1) 8.3 MG/DL (8.5-10.1) Phosphorus Level 4.6 MG/DL (2.5-4.9) Magnesium Level 2.1 MG/DL (1.5-2.5) Alkaline Phosphatase 290 U/L (45-117) 219 U/L (45-117) Aspartate Amino Transf (AST/SGOT) 89 U/L (15-37) 73 U/L (15-37) Alanine Aminotransferase (ALT/SGPT) 101 U/L (10-53) 81 U/L (10-53) Total Bilirubin 2.1 MG/DL (0.2-1.0) 1.9 MG/DL (0.2-1.0) Sodium Level 134 MEQ/L (136-145) 134 MEQ/L (136-145) Potassium Level 3.8 MEQ/L (3.5-5.1) 3.4 MEQ/L (3.5-5.1) Chloride Level 96 MEQ/L (98-107) 96 MEQ/L (98-107) Carbon Dioxide Level 28.3 MEQ/L (21.0-32.0) 24.1 MEQ/L (21.0-32.0) Anion Gap 10 MEQ/L (5-15) 14 MEQ/L (5-15) Estimat Glomerular Filtration Rate 16 ML/MIN (>89) 14 ML/MIN (>89) Blood Gas Puncture Site RT RADIAL Blood Gas Patient Temperature 98.6 Blood Gas HCO3 28 mmol/L (22-26) Blood Gas Base Excess 1.9 mmol/L (-2-2) Blood Gas Oxygen Saturation 92 % (90-100) Arterial Blood pH 7.29 (7.380-7.420) Arterial Blood Partial Pressure CO2 60 mmHg (38-42) Arterial Blood Partial Pressure O2 73 mmHg (61-120) Arterial Blood Oxygen Content 14.3 Vol % (12.0-20.0) Arterial Blood Carboxyhemoglobin 1.6 % (0-4) Arterial Blood Methemoglobin 1.2 % (0-2) Blood Gas Hemoglobin 11.1 G/DL (12.0-16.0) Oxygen Delivery Device VENTILATOR Blood Gas Ventilator Setting PRVC/AC Blood Gas Inspired Oxygen 70 % Lactic Acid Level 0.7 mmol/L (0.4-2.0) Prothrombin Time 11.0 SEC (9.8-11.6) Prothromb Time International Ratio 1.1 RATIO Activated Partial Thromboplast Time 28.2 SEC (24.3-30.1) Direct Bilirubin 0.9 MG/DL (0.0-0.2) Indirect Bilirubin 1.0 MG/DL (0.0-0.8) Random Vancomycin Level 25.0 COMMENT (Sangeeta Johnson) Result Diagram: 07/12/1744407/12/17444 Microbiology Microbiology Date/Time Source Procedure Growth Status 07/11/17 04:24 Blood Peripheral Aerobic Blood Culture - Preliminary NO GROWTH IN 1 DAY Resulted 07/11/17 04:24 Blood Peripheral Anaerobic Blood Culture - Preliminary NO GROWTH IN 1 DAY Resulted 07/11/17 04:18 Blood Peripheral Aerobic Blood Culture - Preliminary NO GROWTH IN 1 DAY Resulted 07/11/17 04:18 Blood Peripheral Anaerobic Blood Culture - Preliminary NO GROWTH IN 1 DAY Resulted Imaging Last Impressions Chest X-Ray 07/11/17 0000 Signed Impressions: Service Date/Time: Tuesday, July 11, 2017 00:45 - CONCLUSION: 1. Interval intubation and placement of nasogastric tube. 2. Stable pulmonary infiltrates and apparent small effusions. Milad Richardson MD CT Angiography 07/10/17 0000 Signed Impressions: Service Date/Time: Monday, July 10, 2017 19:34 - CONCLUSION: 1. Alveolar consolidation involving the right lower lobe and to a lesser extent the posterior aspects of the upper lobes and posterior aspect of the left lower lobe consistent with pneumonia and/or atelectasis. 2. No evidence of pulmonary embolism. 3. Small right pleural effusion and tiny left pleural effusion. 4. Cardiomegaly. 5. Moderate emphysematous changes bilaterally. 6. Degenerative changes and scoliosis of the thoracic spine. Ritchie Dumont MD Abdomen Ultrasound 07/04/17 0000 Signed Impressions: Service Date/Time: Tuesday, July 04, 2017 08:08 - CONCLUSION: Negative Christ Feldman MD Lower Extremity Ultrasound 07/03/17 0000 Signed Impressions: Service Date/Time: Monday, July 03, 2017 13:54 - CONCLUSION: Normal examination. Christ Feldman MD Upper Extremity Ultrasound 06/28/17 0000 Signed Impressions: Service Date/Time: Wednesday, June 28, 2017 08:00 - CONCLUSION: 1. No evidence for soft tissue abscess as questioned. 2. Thrombosed left cephalic vein in the antecubital fossa and proximal forearm. Berny Marie MD Liver Ultrasound 06/28/17 0000 Signed Impressions: Service Date/Time: Wednesday, June 28, 2017 07:48 - CONCLUSION: Echogenic liver possibly fatty infiltration. Tiny amount of fluid adjacent to the liver. Small bilateral pleural effusions. Status post cholecystectomy. Winston Li MD GI Bleed Scan Nuclear Medicine 06/28/17 0000 Signed Impressions: Service Date/Time: Wednesday, June 28, 2017 12:31 - CONCLUSION: No definite evidence of active colonic GI bleeding is noted. 2 very tiny areas are identified the right midabdomen but they do not correspond with bowel activity. Winston Li MD Central Venous Line 06/22/17 0000 Signed Impressions: Service Date/Time: June 00:00 - CONCLUSION: Uncomplicated catheter removal. Robles Corral MD Catheter Placement X-Ray 06/22/17 0000 Signed Impressions: Service Date/Time: June 14:04 - CONCLUSION: Uncomplicated PermaCath placement as above. Robles Corral MD Renal Ultrasound 05/31/17 0000 Signed Impressions: Service Date/Time: Wednesday, May 31, 2017 08:54 - CONCLUSION: 1. Abnormal appearance to the left kidney with diminutive size and poor delineation of the parenchymal architecture. 2. No gross abnormality seen in the right kidney. Aramis Scott MD Procedures 06/01-endotracheal intubation. 06/01-hemodialysis catheter placement in the right IJ vein 06/12-endotracheal intubation 06/12-left IJ central venous catheter placement 06/19-colonoscopy showing ulcers in the cecum, ascending colon, transverse colon and sigmoid diverticulosis. Biopsies taken. 07/10-endotracheal intubation. 07/11-left arterial line placement. . 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 She has been twice, in the first and was then during her second marriage. She moved to [place] in 1993 and lives in her own home since that time. She has 1 daughter, Dorothea Gonzalez who lives in [place]. Spiritual: She is a non-practicing Taoist who would accept paint process engineer visits. Legal: She is currently able to make decisions for herself, however has designated her daughter Dorothea as her healthcare surrogate. Ethical issues impacting care: None noted at this time . Important Contacts Daughter-Dorothea Gonzalez Prognosis Her prognosis is guarded. She has been intubated twice and has required BiPAP to prevent a third intubation. She has smoked for approximately 60 years is morbidly obese and sedentary. She is now developed end-stage renal disease and is on dialysis. She has uncontrolled diabetes mellitus and anemia. She was found to have multiple ulcers on colonoscopy and is now on Procrit for combination anemia of chronic disease and GI blood loss. Given her debility from extended hospitalization and baseline decline she is at significant risk for falls, poor self-care and recurrent hospitalizations. . Code Status: Alternative Code Plan PLAN: Legal decision maker: She is currently unable to make her own decisions but has designated her daughter, Dorothea Gonzalez as the healthcare surrogate decision- maker. Goals: Aggressive short of CPR. CODE STATUS: Alternative code, intubation only. SYMPTOMS: * Dyspnea: Developed respiratory distress 07/10, requiring transfer to ICU with endotracheal intubation. She is now requiring high levels of O2, up to 100% to maintain saturation. She is felt to have pneumonia, likely aspiration type, with septic shock. Daughter has arrived from [place] requesting compassionate withdrawal of the vent. After discussion with Dr. Enriquez and Dr. Tobin it was determined that this is an appropriate course for the patient. Exhibits signed, orders placed. * Anxiety: At risk for worsening anxiety secondary to intubation, invasive lines , in addition to her baseline anxiety. She is currently receiving fentanyl and Versed for sedation and to maintain vent synchrony. As the daughter has chosen compassionate withdrawal of ventilator support, Ativan and hydromorphone will be the drugs of choice to prevent discomfort from anxiety, per the vent withdrawal protocol. Palliative care will continue to follow the patient during hospital course as condition evolves, to assist patient/decision-maker with understanding of their medical conditions, weighing benefits/burdens of treatment options, for clarification of goals of treatment. Additionally will assist with any symptoms of palliative concern. . (Sangeeta Johnson) Attestation To help prompt me to consider important information that might be impacting today's encounter and assessment, information from prior notes written by myself or my colleagues may have been "brought forward" into today's note. My signature on this note, however, is an attestation that I personally performed the exam, history, and/or decision-making noted today, and, unless otherwise indicated, the interactions with patient, family, and staff as well as the review of records all occurred today. I also attest that the listed assessment and stated plan reflect my best clinical judgment today based on the combination of historical information, prior notes, and today's exam/ interactions. When time spent is documented, it refers only to time spent today by the signer, or if indicated, combined time spent today by collaborating physician/nurse practitioner. . (Sangeeta Johnson) Collaborating MD Comments Chart reviewed, patient examined personally by me. Case discussed with palliative care BROTH SETTER. Above BROTH SETTER note reviewed and I concur. Family at bedside at time of my visit. Decision has been made to go forward with withdrawal of life support and transition to comfort measures only. Anticipatory guidance provided by BROTH SETTER. At time of my visit, patient is afebrile, slighlty tachycardic, on mechanical ventilation in SICU. Lungs with scattered ronchi. Heart irregular. Patient is sedated and minimally responsive. Given her respiratory status, renal status, GI bleeding , anemia, overall debililty, and inability to improve in spite of aggressive care, I concur that patient has a terminal condition and agree with withdrawal of life support with transition to "comfort measures only." == Appropriate "Exhibits" signed. == Agree with withdrawal orders and post-withdrawal comfort orders. TIME: Over 35 minutes combined SCANNER OPERATOR/MD time on floor with chart review, patient exam, family meeting (discussed process of withdrawal of life support and what to expect) ; discussion with millinery blocker, writing orders, and documentation. Over 50% of time spent on counseling and coordination of care. . (Gerard Tobin MD) Sangeeta Johnson Jul 12, 2017 11:25 Gerard Tobin MD Jul 12, 2017 19:45
[2017-07-12] MEDS ORDERED: HYOSCYAMINE 0.5 MG/ML AMP IV PUSH PRN (11:45)
[2017-07-12] MEDS ORDERED: BISACODYL 10 MG SUPP RECTAL PRN (11:45)
[2017-07-12] MEDS ORDERED: ACETAMINOPHEN 650 MG SUPP RECTAL PRN (11:45)
[2017-07-12] MEDS ORDERED: HYDROmorphone HCL PF 2 MG/ML VIAL IV PUSH PRN ×2 (11:45)
[2017-07-12] MEDS ORDERED: FUROSEMIDE 20 MG/2 ML VIAL IV PUSH PRN (11:45)
[2017-07-12] MEDS ORDERED: LORazepam 2 MG/ML VIAL IV PUSH PRN ×3 (11:45)
[2017-07-12] MEDS ORDERED: LORazepam 2 MG/ML VIAL IV PUSH SCH (12:00)
[2017-07-12] MEDS ORDERED: HYDROmorphone HCL PF 2 MG/ML VIAL IV PUSH SCH (12:00)
== END 2017-07-12 14:33 | disposition expired | DRG 682 ==
LOC: PHED 19:25 → PHEDA 21:35 → PH3A 23:59 → PHICU 06-01 06:14 → HIME 06-27 22:15 → N07B 07-01 13:00 → N03B 07-10 19:45
PROVIDERS: ADMIT Internal Medicine Critical Care Medicine; ATTEND Internal Medicine Critical Care Medicine
PROC: 5A1955Z Respiratory Ventilation, Greater than 96 Consecutive Hours (ICD-10-PCS; principal; 2017-06-01)
PROC: 0BH17EZ Insertion of Endotracheal Airway into Trachea, Via Natural or Artificial Opening (ICD-10-PCS; 2017-06-01)
PROC: 5A1D70Z Performance of Urinary Filtration, Intermittent, Less than 6 Hours Per Day (ICD-10-PCS; 2017-06-01)
PROC: 05HM33Z Insertion of Infusion Device into Right Internal Jugular Vein, Percutaneous Approach (ICD-10-PCS; 2017-06-01)
PROC: 5A1955Z Respiratory Ventilation, Greater than 96 Consecutive Hours (ICD-10-PCS; 2017-06-12)
PROC: 0BH17EZ Insertion of Endotracheal Airway into Trachea, Via Natural or Artificial Opening (ICD-10-PCS; 2017-06-12)
PROC: 02HV33Z Insertion of Infusion Device into Superior Vena Cava, Percutaneous Approach (ICD-10-PCS; 2017-06-12)
PROC: 30233N1 Transfusion of Nonautologous Red Blood Cells into Peripheral Vein, Percutaneous Approach (ICD-10-PCS; 2017-06-16)
PROC: 0DBL8ZX Excision of Transverse Colon, Via Natural or Artificial Opening Endoscopic, Diagnostic (ICD-10-PCS; 2017-06-19)
PROC: 0DBH8ZX Excision of Cecum, Via Natural or Artificial Opening Endoscopic, Diagnostic (ICD-10-PCS; 2017-06-19)
PROC: 0DB68ZX Excision of Stomach, Via Natural or Artificial Opening Endoscopic, Diagnostic (ICD-10-PCS; 2017-06-19)
PROC: 0W3P8ZZ Control Bleeding in Gastrointestinal Tract, Via Natural or Artificial Opening Endoscopic (ICD-10-PCS; 2017-06-19)
PROC: 0DB98ZX Excision of Duodenum, Via Natural or Artificial Opening Endoscopic, Diagnostic (ICD-10-PCS; 2017-06-19)
PROC: 05HM33Z Insertion of Infusion Device into Right Internal Jugular Vein, Percutaneous Approach (ICD-10-PCS; 2017-06-22)
PROC: 02PYX3Z Removal of Infusion Device from Great Vessel, External Approach (ICD-10-PCS; 2017-06-22)
PROC: 0W3P8ZZ Control Bleeding in Gastrointestinal Tract, Via Natural or Artificial Opening Endoscopic (ICD-10-PCS; 2017-06-23)
PROC: 30233K1 Transfusion of Nonautologous Frozen Plasma into Peripheral Vein, Percutaneous Approach (ICD-10-PCS; 2017-06-23)
PROC: 30233R1 Transfusion of Nonautologous Platelets into Peripheral Vein, Percutaneous Approach (ICD-10-PCS; 2017-06-27)
PROC: 0DB68ZX Excision of Stomach, Via Natural or Artificial Opening Endoscopic, Diagnostic (ICD-10-PCS; 2017-06-30)
PROC: 0D5L8ZZ Destruction of Transverse Colon, Via Natural or Artificial Opening Endoscopic (ICD-10-PCS; 2017-06-30)
PROC: 03HY32Z Insertion of Monitoring Device into Upper Artery, Percutaneous Approach (ICD-10-PCS; 2017-07-11)
PROC: 0BH17EZ Insertion of Endotracheal Airway into Trachea, Via Natural or Artificial Opening (ICD-10-PCS; 2017-07-11)
PROC: 5A1945Z Respiratory Ventilation, 24-96 Consecutive Hours (ICD-10-PCS; 2017-07-11)
PROC: 05H633Z Insertion of Infusion Device into Left Subclavian Vein, Percutaneous Approach (ICD-10-PCS; 2017-07-11)
DX: N17.9 Acute kidney failure, unspecified (principal); R65.21 Severe sepsis with septic shock; J96.21 Acute and chronic respiratory failure with hypoxia; J69.0 Pneumonitis due to inhalation of food and vomit; A41.9 Sepsis, unspecified organism; J44.0 Chronic obstructive pulmonary disease with (acute) lower respiratory infection; E87.2 Acidosis; K63.3 Ulcer of intestine; J96.22 Acute and chronic respiratory failure with hypercapnia; I12.0 Hypertensive chronic kidney disease with stage 5 chronic kidney disease or end stage renal disease; J44.1 Chronic obstructive pulmonary disease with (acute) exacerbation; I82.C12 Acute embolism and thrombosis of left internal jugular vein; B37.49 Other urogenital candidiasis; D62 Acute posthemorrhagic anemia; I82.612 Acute embolism and thrombosis of superficial veins of left upper extremity; E27.40 Unspecified adrenocortical insufficiency; E87.1 Hypo-osmolality and hyponatremia; L03.114 Cellulitis of left upper limb; N18.5 Chronic kidney disease, stage 5; I48.0 Paroxysmal atrial fibrillation; I12.9 Hypertensive chronic kidney disease with stage 1 through stage 4 chronic kidney disease, or unspecified chronic kidney disease; E11.21 Type 2 diabetes mellitus with diabetic nephropathy; E11.65 Type 2 diabetes mellitus with hyperglycemia; D69.59 Other secondary thrombocytopenia; E87.5 Hyperkalemia; E86.0 Dehydration; E78.5 Hyperlipidemia, unspecified; F17.210 Nicotine dependence, cigarettes, uncomplicated; D63.1 Anemia in chronic kidney disease; E11.22 Type 2 diabetes mellitus with diabetic chronic kidney disease; K44.9 Diaphragmatic hernia without obstruction or gangrene; K64.4 Residual hemorrhoidal skin tags; K64.8 Other hemorrhoids; F41.9 Anxiety disorder, unspecified; K57.30 Diverticulosis of large intestine without perforation or abscess without bleeding; E66.01 Morbid (severe) obesity due to excess calories; E83.39 Other disorders of phosphorus metabolism; I25.9 Chronic ischemic heart disease, unspecified; I51.7 Cardiomegaly; K52.9 Noninfective gastroenteritis and colitis, unspecified; Z96.651 Presence of right artificial knee joint; K74.60 Unspecified cirrhosis of liver; Z51.5 Encounter for palliative care; K29.60 Other gastritis without bleeding; K20.9 Esophagitis, unspecified; E11.649 Type 2 diabetes mellitus with hypoglycemia without coma; I95.3 Hypotension of hemodialysis; E87.70 Fluid overload, unspecified; Y95 Nosocomial condition; Z66 Do not resuscitate; Z68.31 Body mass index [BMI] 31.0-31.9, adult; Z79.4 Long term (current) use of insulin; Z79.899 Other long term (current) drug therapy
CPT/HCPCS: 31500; 36430; 36556; 36558; 36600; 71010; 71275; 76705; 76775; 76882; 76937; 77001; 78278; 80048; 80053; 80069; 80074; 80076; 80202; 81001; 82247; 82248; 82272; 82550; 82552; 82805; 82948; 83036; 83540; 83550; 83605; 83615; 83735; 83880; 84100; 84132; 84155; 84439; 84443; 84484; 85007; 85014; 85018; 85025; 85027; 85044; 85379; 85384; 85610; 85730; 86022; 86850; 86880; 86900; 86901; 86920; 86927; 87040; 87070; 87077; 87086; 87186; 87205; 87493; 87641; 87804; 88305; 88312; 90935; 93005; 93306; 93970; 93971; 93975; 94002; 94003; 94150; 94640; 94664; 94667; 94668; 96374; 96375; 99152; A9560; C1750; C1769; C1887; C9113; J0171; J0282; J0330; J0360; J0456; J0610; J0690; J0696; J1160; J1170; J1580; J1642; J1644; J1720; J1815; J1940; J1980; J2060; J2150; J2250; J2405; J2543; J2920; J2930; J3010; J3370; J7030; J7040; J7050; J7060; J7611; J7613; J7626; P9016; P9017; P9035; P9047; Q4081; Q9967